=== PATIENT | female | born 1955 | race Caucasian/White ===

== ENCOUNTER 2018-09-22 16:56 | Inpatient (IN) | payer MEDICARE, MEDICAID ==
[~2018-09-22] VITALS: Ht 152.4 cm; Wt 66.3 kg
[~2018-09-22 16:56] MED LIST: AMIT25TA PO; BACL10TA PO; DESV50TA PO; DIAZ5TAB4 PO; GABA300C18 PO; IBUP-1060 PO; LISI-334 PO; OLAN15TA3 PO; VENTOLIN HFA18 GM INH
[2018-09-22] MEDS ORDERED: IV NORMAL SALINE 1000ML BAG 1,000 ML IV ONE ×2 (17:15→17:30)
[2018-09-22] MEDS ORDERED: PANTOPRAZOLE IV PUSH 40 MG VIAL. IVP ONE (17:15)
[2018-09-22 17:22] LABS: CREATININE ISTAT 2.2 mg/dL (0.5-1.4); HEMOGLOBIN ISTAT 7.5 g/dL (12-15); ION CA ISTAT 1.25 mmol/L (1.13-1.32); POTASSIUM ISTAT 5.9 mmol/L (3.5-5.0)
--- NOTE | 2018-09-22 17:23 | PDOC1 ---
History and Physical Date of Admission Date of Admission DATE: 09/22/18 TIME: 17:23 Identification/Chief Complaint Chief Complaint AMS Past Medical History Psych: Anxiety, Bipolar, Depression Family History Family History: Hypertension Social History ALCOHOL: none Drugs: None Current Medications Current Medications Current Medications Sodium Chloride 1,000 ml @ 1,000 mls/hr 1X ONCE IV Last administered on at 17:18; Start 09/22/18 at 17:15; Stop 09/22/18 at 18:14 Pantoprazole Sodium 80 mg/ Sodium Chloride 100 ml @ 10 mls/hr Q10H IV ; Start 09/22/18 at 17:15 Pantoprazole Sodium (PROTONIX VIAL for IV PUSH) 80 mg 1X ONCE IVP ; Start 09/22 at 17:15; Stop 09/22/18 at 17:17; Status DC Ceftriaxone Sodium (Rocephin) 1 gm 1X ONCE IVP ; Start 09/22/18 at 17:30; Stop 09/22/18 at 17:30; Status DC Sodium Chloride 1,000 ml @ 1,000 mls/hr 1X ONCE IV ; Start 09/22/18 at 17:30; Stop 09/22/18 at 18:29 Active Scripts Active Reported Ventolin Hfa Inhaler (Albuterol Sulfate) 18 Gm Hfa.aer.ad 2 Puff INH Q4HRS PRN Pristiq Er (Desvenlafaxine Succinate) 50 Mg Tab.er.24h 1 Tab PO DAILY Zyprexa (Olanzapine) 15 Mg Tablet 1 Tab PO QHS Lisinopril 20 Mg Tablet 1 Tab PO DAILY Amitriptyline Hcl 25 Mg Tablet 1 Tab PO QHS Diazepam 5 Mg Tablet 5 Mg PO TID Gabapentin (Gabapentin) 300 Mg Capsule 300 Mg PO TID Allergies Allergies: Coded Allergies: morphine (Verified Allergy, Severe, swelling, 07/01/18) aspirin (Verified Allergy, Intermediate, 07/05/18) TOLERATES IBUPROFEN oxycodone (Verified Allergy, Intermediate, 07/05/18) Vitals Vitals Vital Signs Date Time Temp Pulse Resp B/P (MAP) Pulse Ox O2 Delivery O2 Flow Rate FiO2 09/22/18 16:57 97.7 92 8 105/64 (78) 100 Room Air 97.7 Labs Labs Laboratory Tests Test 09/22/18 17:17 Bedside Hemoglobin 7.5 g/dL (12-15) Bedside Hematocrit 22 % (36-40) Bedside Sodium 147 mmol/L (135-145) Bedside Potassium 5.9 mmol/L (3.5-5.0) Bedside Chloride 129 mmol/L (98-110) Bedside Total CO2 8 mmol/L (23-32) Anion Gap 16 mmol/L (6-14) Bedside Blood Urea Nitrogen 56 mg/dL (8-26) Bedside Creatinine 2.2 mg/dL (0.5-1.4) Glucose Level 103 mg/dL (70-99) Bedside Ionized Calcium (Yumi) 1.25 mmol/L (1.13-1.32) Laboratory Tests Test 09/22/18 17:17 Bedside Hemoglobin 7.5 g/dL (12-15) Bedside Hematocrit 22 % (36-40) Bedside Sodium 147 mmol/L (135-145) Bedside Potassium 5.9 mmol/L (3.5-5.0) Bedside Chloride 129 mmol/L (98-110) Bedside Total CO2 8 mmol/L (23-32) Anion Gap 16 mmol/L (6-14) Bedside Blood Urea Nitrogen 56 mg/dL (8-26) Bedside Creatinine 2.2 mg/dL (0.5-1.4) Glucose Level 103 mg/dL (70-99) Bedside Ionized Calcium (Yumi) 1.25 mmol/L (1.13-1.32) VTE Prophylaxis Ordered VTE Prophylaxis Devices: Yes VTE Pharmacological Prophylaxi: Yes ALICJA ALLEN MD Sep 22, 2018 17:23
[2018-09-22] MEDS: PANTOPRAZOLE SODIUM IV DRIP 80 MG in IV NORMAL SALINE 100ML 100 ML IV SCH (17:26)
[2018-09-22 17:30] LABS: BASE EXCESS ABG -25 mmol/L (-3-3); HCO3 ABG 4 mmol/L (21-28); PO2 ABG 143 mmHg (65-108); SAT O2 ABG 97 % (92-99)
[2018-09-22] MEDS ORDERED: cefTRIAXone IV Push 1 GM VIAL. IVP ONE (17:30)
[2018-09-22] MEDS ORDERED: PIP/TAZO PER PHARMACY MC PRN (17:30)
[2018-09-22] MEDS ORDERED: VANCOMYCIN 1.75 GM in IV NORMAL SALINE 500ML BAG 500 ML IV ONE (17:30)
[2018-09-22] MEDS ORDERED: PIPERACILLIN/TAZOBACTAM 3.375 GM in IV NORMAL SALINE 50ML 50 ML IV ONE (17:30)
[2018-09-22 17:33] LABS: PCO2 ABG 18 mmHg (35-46)
[2018-09-22 17:34] LABS: FIO2 ABG 21
[2018-09-22 17:45] LABS: BASO % 0 % (0-3); EOS % 1 % (0-3); HEMATOCRIT 25.6 % (36.0-47.0); HEMOGLOBIN 7.8 g/dL (12.0-15.5); LYMPH # 1.3 x10^3/uL (1.0-4.8); LYMPH % 66 % (24-48); MEAN CORPUSCULAR HEMOGLOBIN 29 pg (25-35); MEAN CORPUSCULAR HGB CONC 31 g/dL (31-37); MEAN CORPUSCULAR VOLUME 96 fL (79-100); MONO % 2 % (0-9); NEUT # 0.6 x10^3uL (1.8-7.7); NEUT % 31 % (31-73); PLATELET COUNT 301 x10^3/uL (140-400); RED BLOOD COUNT 2.66 x10^6/uL (3.50-5.40); RED CELL DISTRIBUTION WIDTH 20.7 % (11.5-14.5)
[2018-09-22] MEDS ORDERED: SODIUM BICARB ADULT 8.4% 50 MEQ/50 ML DISP.SYRIN. IV ONE (17:45)
[2018-09-22] MEDS ORDERED: NOREPINEPHRIN 8MG/250ML PREMIX 250 ML IV ONE (17:45)
[2018-09-22 17:49] LABS: WHITE BLOOD COUNT 1.9 x10^3/uL (4.0-11.0)
[2018-09-22 17:51] LABS: FECAL OB PT POSITIVE (NEG)
[2018-09-22 17:52] LABS: PROTHROMBIN TIME PATIENT 18.5 SEC (11.7-14.0)
[2018-09-22 17:54] LABS: ETHANOL < 10 mg/dL (0-10); SALIC 4.7 mg/dL (2.8-20.0)
[2018-09-22 18:00] LABS: ALBUMIN 2.4 g/dL (3.4-5.0); ALBUMIN/GLOBULIN RATIO 0.9 (1.0-1.7); CALCIUM 7.7 mg/dL (8.5-10.1); CREATININE 2.3 mg/dL (0.6-1.0); GFR 21.3; MAGNESIUM 2.1 mg/dL (1.8-2.4); TOTAL BILIRUBIN 0.3 mg/dL (0.2-1.0); TOTAL PROTEIN 5.1 g/dL (6.4-8.2)
[2018-09-22 18:02] LABS: POTASSIUM 6.2 mmol/L (3.5-5.1)
[2018-09-22 18:16] LABS: BILIRUBIN,URINE NEGATIVE (NEG); CLARITY,URINE CLEAR; COLOR,URINE YELLOW; NITRITE,URINE NEGATIVE (NEG); PH,URINE 5.5; PROTEIN,URINE 30 mg/dL (NEG-TRACE)
[2018-09-22 18:24] LABS: BARBITURATES NEG (NEG); BENZODIAZEPINES POS (NEG); CANNABINOIDS NEG (NEG); COCAINE NEG (NEG); METHADONE NEG (NEG); OPIATES NEG (NEG); PHENCYCLIDINE NEG (NEG)
[2018-09-22 18:25] LABS: AMPHETAMINE/METHAMPHETAMINE NEG (NEG)
[2018-09-22] MEDS ORDERED: SODIUM BICARBONATE VIAL 150 MEQ in IV STERILE WATER 1,000 ML IV ONE (18:30)
[2018-09-22 18:33] LABS: BACTERIA,URINE 0 /HPF (0-FEW); RBC,URINE 0 /HPF (0-2); SQUAMOUS EPITHELIAL CELL,UR FEW /LPF; WBC,URINE OCC /HPF (0-4)
--- NOTE | 2018-09-22 18:34 | PHYS DOC ---
Past Medical History Past Medical History: Bipolar, Hypertension Additional Past Medical Histor: BIPOLAR, 09/22 UNKNOWN UNRESPONSIVE Past Surgical History: Cholecystectomy, Other Additional Past Surgical Histo: LEFT SHOULDER Alcohol Use: None Drug Use: None Adult General Chief Complaint Chief Complaint: ALTERED MENTAL STATUS HPI HPI Patient is a 63 year old female presents with chief complaint of altered mental status found down. He was okay this morning went to the bathroom had a dark large black tarry stool and she went unconscious she slumped over son brought her to the bed and called 911. Pressure was not palpable by paramedics GCS was low history is limited by the patient's acuity she has not been sick recently Review of Systems Review of Systems Limited by patient's acuity Current Medications Current Medications Current Medications Medications (Trade) Dose Ordered Sig/Ashli Start Time Stop Time Status Last Admin Dose Admin Ceftriaxone Sodium (Rocephin) 1 gm 1X ONCE 09/22/18 17:30 09/22/18 17:30 DC Norepinephrine Bitartrate 250 ml @ 0 mls/hr 1X ONCE 09/22/18 17:45 09/22/18 17:46 DC 09/22/18 17:51 1.9 MLS/HR Pantoprazole Sodium (PROTONIX VIAL for IV PUSH) 80 mg 1X ONCE 09/22/18 17:15 09/22/18 17:17 DC 09/22/18 17:39 80 MG Pantoprazole Sodium 80 mg/ Sodium Chloride 100 ml @ 10 mls/hr Q10H 09/22/18 17:15 09/22/18 17:26 10 MLS/HR Piperacillin Sod/ Tazobactam Sod (Zosyn Per Pharmacy) 1 each PRN DAILY PRN 09/22/18 17:30 Piperacillin Sod/ Tazobactam Sod 3.375 gm/Sodium Chloride 50 ml @ 100 mls/hr 1X ONCE 09/22/18 17:30 09/22/18 17:59 DC 09/22/18 18:04 100 MLS/HR Sodium Bicarbonate (Sodium Bicarb Adult 8.4% Syr) 50 meq 1X ONCE 09/22/18 17:45 09/22/18 17:46 DC 09/22/18 18:03 50 MEQ Sodium Chloride 1,000 ml @ 1,000 mls/hr 1X ONCE 09/22/18 17:30 09/22/18 18:29 DC 09/22/18 17:27 1,000 MLS/HR Vancomycin HCl (Vanco Per Pharmacy) 1 each PRN DAILY PRN 09/22/18 17:30 Vancomycin HCl 1.75 gm/Sodium Chloride 500 ml @ 250 mls/hr 1X ONCE 09/22/18 17:30 09/22/18 19:29 Allergies Allergies Allergies Coded Allergies Type Severity Reaction Last Updated Verified morphine Allergy Severe swelling 07/01/18 Yes aspirin Allergy Intermediate 07/05/18 Yes oxycodone Allergy Intermediate 07/05/18 Yes Physical Exam Physical Exam Constitutional: Well developed, ill-appearing HENT: Normocephalic, atraumatic, bilateral external ears normal, oropharynx DRY , no oral exudates, nose normal. [] Eyes: PERRLA, EOMI, conjunctiva normal, no discharge. [] Neck: Normal range of motion, no tenderness, supple, no stridor. [] Cardiovascular:Heart rate regular rhythm, no murmur []. Faint pulses noted no radial pulse Lungs & Thorax: Decreased percent bilateral lung bases Abdomen: Bowel sounds normal, soft, likely but difficult exam tenderness, no masses, no pulsatile masses. [] Back: No tenderness, no CVA tenderness. [] Extremities: No tenderness, no cyanosis, no clubbing, ROM intact, 2+ edema noted Neurologic: Eyes open to voice following commands intermittently can say her name slurred speech and altered mental status Current Patient Data Vital Signs Vital Signs Date Time Temp Pulse Resp B/P (MAP) Pulse Ox O2 Delivery O2 Flow Rate FiO2 09/22/18 16:57 97.7 92 8 105/64 (78) 100 Room Air 97.7 Lab Values Laboratory Tests Test 09/22/18 17:10 09/22/18 17:15 09/22/18 17:17 09/22/18 17:20 White Blood Count 1.9 x10^3/uL (4.0-11.0) *L Red Blood Count 2.66 x10^6/uL (3.50-5.40) L Hemoglobin 7.8 g/dL (12.0-15.5) L Hematocrit 25.6 % (36.0-47.0) L Mean Corpuscular Volume 96 fL (79-100) Mean Corpuscular Hemoglobin 29 pg (25-35) Mean Corpuscular Hemoglobin Concent 31 g/dL (31-37) Red Cell Distribution Width 20.7 % (11.5-14.5) H Platelet Count 301 x10^3/uL (140-400) Neutrophils (%) (Auto) 31 % (31-73) Lymphocytes (%) (Auto) 66 % (24-48) H Monocytes (%) (Auto) 2 % (0-9) Eosinophils (%) (Auto) 1 % (0-3) Basophils (%) (Auto) 0 % (0-3) Neutrophils # (Auto) 0.6 x10^3uL (1.8-7.7) L Lymphocytes # (Auto) 1.3 x10^3/uL (1.0-4.8) Monocytes # (Auto) 0.0 x10^3/uL (0.0-1.1) Eosinophils # (Auto) 0.0 x10^3/uL (0.0-0.7) Basophils # (Auto) 0.0 x10^3/uL (0.0-0.2) Platelet Estimate Pending Prothrombin Time 18.5 SEC (11.7-14.0) H Prothrombin Time INR 1.6 (0.8-1.1) H Sodium Level 149 mmol/L (136-145) H Potassium Level 6.2 mmol/L (3.5-5.1) *H Chloride Level 121 mmol/L (98-107) H Carbon Dioxide Level 7 mmol/L (21-32) *L Anion Gap 21 (6-14) H 16 mmol/L (6-14) H Blood Urea Nitrogen 55 mg/dL (7-20) H Creatinine 2.3 mg/dL (0.6-1.0) H Estimated GFR (Cockcroft-Gault) 21.3 BUN/Creatinine Ratio 24 (6-20) H Glucose Level 112 mg/dL (70-99) H 103 mg/dL (70-99) H Lactic Acid Level 4.1 mmol/L (0.4-2.0) *H Calcium Level 7.7 mg/dL (8.5-10.1) L Magnesium Level 2.1 mg/dL (1.8-2.4) Total Bilirubin 0.3 mg/dL (0.2-1.0) Aspartate Amino Transferase (AST) 28 U/L (15-37) Alanine Aminotransferase (ALT) 26 U/L (14-59) Alkaline Phosphatase 84 U/L (46-116) Creatine Kinase 150 U/L (26-192) Troponin I Quantitative < 0.017 ng/mL (0.000-0.055) AY-Plz-J-Type Natriuretic Peptide 486 pg/mL (0-124) H Total Protein 5.1 g/dL (6.4-8.2) L Albumin 2.4 g/dL (3.4-5.0) L Albumin/Globulin Ratio 0.9 (1.0-1.7) L Lipase 221 U/L (73-393) Salicylates Level 4.7 mg/dL (2.8-20.0) Salicylate Last Dose Date Unk Salicylate Last Dose Time Unk Ethyl Alcohol Level < 10 mg/dL (0-10) POC Troponin I 0.00 ng/ml (<0.08) POC Hemoglobin 7.5 g/dL (12-15) L POC Hematocrit 22 % (36-40) L POC Sodium 147 mmol/L (135-145) H POC Potassium 5.9 mmol/L (3.5-5.0) H POC Chloride 129 mmol/L (98-110) H POC Total CO2 8 mmol/L (23-32) L POC Blood Urea Nitrogen 56 mg/dL (8-26) H POC Creatinine 2.2 mg/dL (0.5-1.4) H POC Ionized Calcium (Yumi) 1.25 mmol/L (1.13-1.32) O2 Saturation 97 % (92-99) Arterial Blood pH 7.01 (7.35-7.45) *L Arterial Blood pCO2 at Patient Temp 18 mmHg (35-46) *L Arterial Blood pO2 at Patient Temp 143 mmHg (65-108) H Arterial Blood HCO3 4 mmol/L (21-28) L Arterial Blood Base Excess -25 mmol/L (-3-3) L FiO2 21 Test 09/22/18 17:45 09/22/18 17:50 Stool Occult Blood Positive (NEG) Urine Collection Type Unknown Urine Color Yellow Urine Clarity Clear Urine pH 5.5 Urine Specific Dudley 1.010 Urine Protein 30 mg/dL (NEG-TRACE) Urine Glucose (UA) Negative mg/dL (NEG) Urine Ketones (Stick) Trace mg/dL (NEG) Urine Blood Negative (NEG) Urine Nitrite Negative (NEG) Urine Bilirubin Negative (NEG) Urine Urobilinogen Dipstick 1.0 mg/dL (0.2 mg/dL) Urine Leukocyte Esterase Trace (NEG) Urine RBC 0 /HPF (0-2) Urine WBC Occ /HPF (0-4) Urine Squamous Epithelial Cells Few /LPF Urine Bacteria 0 /HPF (0-FEW) Urine Opiates Screen Neg (NEG) Urine Methadone Screen Neg (NEG) Urine Barbiturates Neg (NEG) Urine Phencyclidine Screen Neg (NEG) Urine Amphetamine/Methamphetamine Neg (NEG) Urine Benzodiazepines Screen Pos (NEG) Urine Cocaine Screen Neg (NEG) Urine Cannabinoids Screen Neg (NEG) Urine Ethyl Alcohol Neg (NEG) Laboratory Tests 09/22/18 17:10 Laboratory Tests 09/22/18 17:10 09/22/18 17:17 EKG EKG []EKG shows peak T waves rate of 84 sinus rhythm noted QTC 455 interpreted by me the time of encounter no STEMI. Radiology/Procedures Radiology/Procedures [] Impressions: CXR NO DEFINITE PNA NOTED. Course & Med Decision Making Course & Med Decision Making Pertinent Labs and Imaging studies reviewed. (See chart for details) []63-year-old female presenting with severe critical illness severe metabolic acidosis melena noted hemoglobin low but not critically low patient was a 0.70 could be mostly GI bleed related however mesenteric ischemia is a possibility a spoke with Several consultants I spoke with Dr. Smith who requested intubation, supportive care as we are otherwise doing. I spoke with Dr. Barnett from nephrology he will arrange for CRRT upstairs. He recommended noncontrast CT scan divided for the mesenteric ischemia. I spoke with Dr. Wright from GI who also recommended supportive care and an NG tube when feasible. As well as blood products etc. I spoke with Dr. Seay ADMIT TO ICU, FOR CLOSE STABILIZATION Critical care time was 110 minutes exclusive of procedures.Indication: Vascular access Consent: The patient provided consent for this procedure. Procedure: The patient was positioned appropriately and the skin over the RIGHT FEMORAL was prepped and draped in a sterile fashion. Local anesthesia was used. A large bore needle was used to identify the vein. A guide wire was then inserted into the vein through the needle. A CORDISn catheter was then inserted into the vessel over the guide wire using the Seldinger technique. All ports showed good, free flowing blood return and were flushed with saline solution. The catheter was then securely fastened to the skin with sutures and covered with a sterile dressing. The patient tolerated the procedure well. Complications: none. Immediately placed patient in position for quarters due to severe melena seen on physical examination as well as a nonpalpable blood pressure. I placed a cordis as above we started mass or transfusion protocol we gave 3 L of fluid total here 3 units of blood FFP is being initiated as we speak now at 6:30 PM. We started Protonix drip we gave Levothroid with a bicarbonate I ordered bicarbonate drip the patient's profound acidosis could be related to blood loss that could also be underlying ischemic event going on. I spoke to multiple consultants as noted above. Dr. Smith did request intubation specifically I had some concerns about the hypotension but we DID get her stabilized MUCH POSSIBLE AND SHE FELT IT CRITICAL WHICH I AGREE WITH 640 PM INTUBATION emergent procedure neck for 7.5 tube 22 at the lips grade 1 view medications patient remained stable throughout the gave 10 of etomidate 100 of rocuronium due to the elevated potassium. Post intubation chest x-ray is pending I've asked Dr. Weaver to take a look at this. I did write an order for the ICU nurses to call the admitting team on arrival to review the CT scan results which are currently pending at this time. \ AT THIS TIME DDX STILL INCULDES MESENTERIC ISCHEMIA, GI BLEED, SERUM OSMOLES IS PENDING. CRRT WILL BE DONE ON ARRIVAL TO ICU. Dragon Disclaimer Dragon Disclaimer This electronic medical record was generated, in whole or in part, using a voice recognition dictation system. Departure Departure Impression: Primary Impression: GI bleed Additional Impression: Metabolic acidosis Disposition: ADMITTED INPATIENT Admitting Physician: Nano Seay Condition: CRITICAL Referrals: NANO SEAY MD (PCP) Problem Qualifiers HALLIE ALLISON MD Sep 22, 2018 18:34
[2018-09-22] MEDS ORDERED: fentaNYL PF VIAL 100 MCG/2 ML VIAL IV ONE (19:00)
[2018-09-22] MEDS ORDERED: LIDOCAINE WITH 8.4% SOD BICARB 3 ML DISP.SYRIN. INJ ONE (19:15)
[2018-09-22] MEDS ORDERED: HEPARIN for IV BOLUS 10,000 UNIT/10 ML VIAL. ONE (19:17)
--- NOTE | 2018-09-22 19:47 | RAD ---
Indication:Altered mental status TECHNIQUE:Portable AP chest X-ray COMPARISON:None FINDINGS: Heart is normal in size. Lungs are clear. No pneumothorax or pleural effusion. Visualized bony thorax is within normal limits. IMPRESSION: No acute pulmonary process. Electronically signed by: Chase Naranjo DO (09/22/2018 7:44 PM) [facility]
--- NOTE | 2018-09-22 19:49 | PDOC ---
BRIEF OPERATIVE NOTE Pre-Op Diagnosis ARF Post-Op Diagnosis same Procedure Performed Temp HD catheter placement Surgeon Jairo Anesthesia Type: Local Findings R IJ temp HD with excellent manual flow rates Complications No immediate NATALIE JUAN MD Sep 22, 2018 19:49
--- NOTE | 2018-09-22 20:08 | RAD ---
Indication:s/p HD catheter placement TECHNIQUE:Portable AP chest X-ray COMPARISON:Study from the same day earlier FINDINGS: ET tube is seen 1.4 cm above the level of jarrod. Interval placement of modalities catheter with its tip at the cavoatrial junction. Heart is normal in size. Calcified left paratracheal and hilar lymph nodes are seen. Mild prominence of bilateral interstitium. No pneumothorax or pleural effusion. Visualized bony thorax within normal limits. IMPRESSION: 1. Tip of the dialysis catheter is at the cavoatrial junction. 2. Stable mild prominence of interstitium may be secondary to interstitial pulmonary edema. Electronically signed by: Chase Naranjo DO (09/22/2018 8:05 PM) [facility]
[2018-09-22 20:15] LABS: % BANDS 1 % (0-9); % EOS 1 % (0-5); % LYMPHS 72 % (24-48); % SEGS 26 % (35-66); PLT ESTIMATE ADEQUATE (ADEQUATE)
[2018-09-22 20:20] LABS: ANISOCYTOSIS MOD
--- NOTE | 2018-09-22 20:33 | RAD ---
PQRS Compliance statement: One or more of the following individualized dose reduction techniques were utilized for this examination: 1. Automated exposure control. 2. Adjustment of the mA and/or kV according to patient size. 3. Use of iterative reconstruction technique. Indication:AMS TECHNIQUE: CT head without IV contrast COMPARISON:07/02/2018 FINDINGS: No pathologic extra-axial or intra-axial fluid collection. The ventricles and basal cisterns are within normal limits. No acute intracranial bleed. No focal loss of mazariegos-white differentiation. Orbits within normal limits. No suspicious calvarial lesion. Opacification of the nasopharynx likely secondary to mucous. The paranasal sinuses and mastoid air cells are clear. IMPRESSION: No acute intracranial process. If concern for acute ischemic stroke is high, please consider MRI brain. Electronically signed by: Chase Naranjo DO (09/22/2018 8:30 PM) [facility]
[2018-09-22] MEDS ORDERED: ETOMIDATE 20 MG/10 ML VIAL. IV ONE (20:36)
[2018-09-22] MEDS ORDERED: ROCURONIUM 50 MG/5 ML VIAL. ONE (20:36)
--- NOTE | 2018-09-22 20:43 | RAD ---
PQRS Compliance statement: One or more of the following individualized dose reduction techniques were utilized for this examination: 1. Automated exposure control. 2. Adjustment of the mA and/or kV according to patient size. 3. Use of iterative reconstruction technique. Indication:EVAL FOR SOURCE OF SHOCK. TECHNIQUE: CT chest, abdomen and pelviswithout IV contrast with multiplanar reformats. COMPARISON: None FINDINGS: Limited exam due to lack of IV contrast. ET tube is seen with its tip at the level of T4 vertebral body. Central venous catheter is seen with its tip in the right atrium. Heart is normal in size. No pericardial effusion. Consolidation is seen in the left lower lobe with air bronchograms. No enlarged mediastinal adenopathy. Evaluation of hilar lymphadenopathy is limited due to lack of IV contrast. Wedge-shaped consolidation is seen along the superior aspect of the right major fissure. Tip of the ET tube is in the right mainstem bronchus and should be pulled back by approximately 3 cm. Very mild loss of T5 and T8 vertebral body height noted. Noncontrast appearance of the liver, spleen, pancreas, adrenals and kidneys within normal limits. No free pelvic fluid or ascites. Large amount of colonic stool burden. No bowel obstruction. Status post hysterectomy. Urinary bladder is decompressed with Mckinney catheter. No pneumoperitoneum. Mild loss of T12 and anterior L2 vertebral body heights. No suspicious bony lesion. IMPRESSION: Limited exam due to lack of IV contrast. 1. Tip of the ET tube is in the proximal right mainstem bronchus and should be withdrawn by approximately 3 cm. 2. Partial consolidation in the left lower lobe and along the superior aspect of the right major fissure may be secondary to atelectasis or pneumonia. 3. Mild loss of thoracic and lumbar vertebral bodies most likely mild compression deformities, age indeterminate but likely chronic. 4. Large amount of colonic stool burden, patient may be constipated. Findings discussed with Dr. Cardona on 09/22/2018 at 8:40 PM. Electronically signed by: Chase Naranjo DO (09/22/2018 8:40 PM) [facility]
[2018-09-22] MEDS: VANCOMYCIN PER PHARMACY MC PRN (21:08)
--- NOTE | 2018-09-22 21:09 | NUR ---
Pharmacy Vancomycin Dosing Note S:Consulted to monitor and dose vancomycin started 09/22/18. O:ISABELL BUCIO is a 63 year old F started empirically on vancomycin Height: 5 feet, 0 inches Weight: 69.4 kg [place] Body Weight: 45.50 Adjusted Body Weight: 55.06 Dosing Weight: Actual Other Antibiotics: zosyn LABS: Last BUN: 55 Last Creatinine: 2.3 Creatinine Clearance: starting CRRT 09/22 Last WBC: 1.9 Last Procalcitonin: Tmax (past 24 hours): 97.7 Microbiology: - I/O: - Drug Levels: Last level: on at Last dose given at Vancomycin Dosing: Loading Dose: 1750 mg x1 Dosing Weight: Actual Target Trough: 15-20 A: Based on: WEIGHT AND RENAL FUNCTION P: 1. DOSE Vancomycin 1750 mg IV One Time 2. Follow up labs/levels to be ordered by pharmacy pending changes in patient condition/renal funciton 3. Pharmacy will continue to monitor, follow and adjust therapy as needed. Alysia Flowers RPH, 09/22/18 [id number]
[2018-09-22 21:30] VITALS: BP 96/52
[2018-09-22 21:34] LABS: BASE EXCESS ABG -22 mmol/L (-3-3); CORRECTED PCO2 ABG 23 mmHg; CORRECTED PH ABG 7.07; CORRECTED PO2 ABG 402 mmHg; HCO3 ABG 7 mmol/L (21-28); SAT O2 ABG 100 % (92-99)
[2018-09-22 21:35] LABS: FIO2 ABG 100; PCO2 ABG 25 mmHg (35-46); PO2 ABG 411 mmHg (65-108)
--- NOTE | 2018-09-22 21:39 | RAD ---
Indication:ETT, OGT placement TECHNIQUE:Portable AP chest X-ray COMPARISON:CT from the same day earlier FINDINGS: ET tube is seen with its tip at the level of jarrod and should be withdrawn by approximately 2 cm. NG tube is seen with its tip in the body of the stomach. Right central venous catheter with its tip in the SVC. Heart is normal in size. Lungs are clear. No pneumothorax or pleural effusion. Visualized bony thorax within normal limits. IMPRESSION: 1. Low-lying ET tube. Please withdraw by 2 cm. Findings discussed with Rudy in ICU at 09/22/2018 at 9:37 PM. Electronically signed by: Chase Naranjo DO (09/22/2018 9:36 PM) [facility]
[2018-09-22 22:00] VITALS: BP 75/48
[2018-09-22] MEDS: SODIUM BICARBONATE VIAL 150 MEQ in IV STERILE WATER 1,000 ML IV SCH (22:03)
[2018-09-22] MEDS: POTASSIUM CHLORIDE IV SCH ×10 (22:04)
[2018-09-22] MEDS: [UNRECOGNIZED DRUG - OTHER] IV SCH ×10 (22:04)
[2018-09-22] MEDS: SODIUM BICARBONATE IV SCH ×10 (22:04)
[2018-09-22] MEDS: MAGNESIUM SULFATE IV SCH ×10 (22:04)
[2018-09-22 22:42] LABS: HEMATOCRIT 44.1 % (36.0-47.0); HEMOGLOBIN 14.5 g/dL (12.0-15.5); RED BLOOD COUNT 4.83 x10^6/uL (3.50-5.40); RED CELL DISTRIBUTION WIDTH 16.8 % (11.5-14.5)
[2018-09-22 23:00] VITALS: BP_SYST 95; BP_DIAS 46; BP_DIAS 75
[2018-09-23] VITALS (25 sets, daily range): BP systolic 100–166; BP diastolic 59–101
[2018-09-23] MEDS: PIPERACILLIN/TAZOBACTAM 3.375 GM in IV NORMAL SALINE 50ML 50 ML IV SCH ×4 (00:50→18:26)
[2018-09-23] MEDS: NOREPINEPHRIN 8MG/250ML PREMIX 250 ML IV PRN ×3 (00:53→19:53)
[2018-09-23] MEDS: PANTOPRAZOLE SODIUM IV DRIP 80 MG in IV NORMAL SALINE 100ML 100 ML IV SCH ×2 (00:54→13:19)
[2018-09-23] MEDS: fentaNYL PF VIAL 100 MCG/2 ML VIAL IV PRN ×4 (03:28→23:48)
[2018-09-23] MEDS: MAGNESIUM SULFATE IV SCH ×34 (05:02→23:50)
[2018-09-23] MEDS: SODIUM BICARBONATE IV SCH ×30 (05:02→15:40)
[2018-09-23] MEDS: [UNRECOGNIZED DRUG - OTHER] IV SCH ×30 (05:02→15:40)
[2018-09-23] MEDS: POTASSIUM CHLORIDE IV SCH ×34 (05:02→23:50)
[2018-09-23] MEDS: SODIUM BICARBONATE VIAL 150 MEQ in IV STERILE WATER 1,000 ML IV SCH ×6 (05:03→20:08)
--- NOTE | 2018-09-23 05:43 | NUR ---
Pt managed at start of shift in ER. IR placing Temp dialysis cath and process improvement analyst placing L upper arm art line. Pt on levo gtt and 2nd amp bicarb given. Pt unresponsive on no sedation upon arrival. Pt intubated and on vent per pulmonology instruction. Pt to CT en route to ICU. CRRT started on pt at 2145. CRRT stopped around 2330 due to machine problems. Dialysis nurse restringing and CRRT resumed at 0140. Art line in R. arm very positional and hematoma forming. Art line removed and pressure applied. CHIPPING MACHINE OPERATOR with new A line to R. arm and good waveform but still very positional. B/P cuff to Left leg and matching well with art line. bmp, mag, and phos q6hr with crrt. Francisca hugger in place after arrival from ER due to low temps as charted. Pt started on sedation around 2300 due to increasing activity. Pt not nodding/shaking head to questions still but tracking with eyes when sedation down. Update given to family (son who pt lives with - Dirk Tim"). Pt with diarrhea BM at 0500. stool dark brown but with no overt bleeding. OG output green and with trace of blood. Hgb on redraw tonight stable after 3uPRBC and 1uFFP. Will recheck labs this AM and continue to closely observe pt on 1:1 acuity. Addendum: 09/23/18 at 0645 by EMILIANO BOONE RN Spoke with Dr. Gramajo regarding pt status and CT results. AC from to . No new orders at this time.
[2018-09-23 06:35] LABS: HEMATOCRIT 40.9 % (36.0-47.0); HEMOGLOBIN 13.7 g/dL (12.0-15.5); RED BLOOD COUNT 4.62 x10^6/uL (3.50-5.40); RED CELL DISTRIBUTION WIDTH 16.6 % (11.5-14.5); WHITE BLOOD COUNT 15.8 x10^3/uL (4.0-11.0)
[2018-09-23 06:43] LABS: MAGNESIUM 2.2 mg/dL (1.8-2.4); PHOSPHORUS 3.7 mg/dL (2.6-4.7)
--- NOTE | 2018-09-23 06:49 | PDOC ---
Provider Note Provider Note [id number] acute resp fial shock gib elizabet ?pneumonia see orders. ELIANE CANADA MD Sep 23, 2018 06:49
[2018-09-23 06:53] LABS: PROTHROMBIN TIME PATIENT 19.4 SEC (11.7-14.0)
[2018-09-23 07:09] LABS: ALBUMIN 2.6 g/dL (3.4-5.0); CALCIUM 6.8 mg/dL (8.5-10.1); CREATININE 1.4 mg/dL (0.6-1.0); GFR 37.9; POTASSIUM 3.7 mmol/L (3.5-5.1); TOTAL BILIRUBIN 1.7 mg/dL (0.2-1.0); TOTAL PROTEIN 5.2 g/dL (6.4-8.2)
--- NOTE | 2018-09-23 07:21 | CONS ---
DATE OF CONSULTATION: 09/23/2018 I was asked to see this 63-year-old lady for acute respiratory failure, shock. HISTORY OF PRESENT ILLNESS: The patient is currently on the ventilator and is on Versed drip, Levophed and vasopressin. The patient is not able to give me any information. All of the information was obtained from chart, nursing staff and ER physician. She was brought to the Emergency Room for altered mental status and melena via MAST. At the time of arrival, her pulse was not palpable. Femoral line was placed. She was given IV bolus and 3 units of blood and FFP. The patient was severely acidotic and tachypneic. I did talk to the ER physician and recommended intubation. The patient was intubated in the Emergency Room and was sent to ICU. She was found to be in kidney failure. She was started on CRRT last night. She is currently on CRRT. She is on the ventilator. She is sedated. She has some endotracheal tube secretion. PAST MEDICAL HISTORY: Bipolar disorder, hypertension, and cholecystectomy. ALLERGIES: ASPIRIN, MORPHINE, OXYCODONE. MEDICATIONS: She is on Zosyn, Protonix drip, Levophed, vasopressin and one dose of vancomycin was given. SOCIAL HISTORY: Remote history of smoking per chart. FAMILY HISTORY: Hypertension per chart. REVIEW OF SYSTEMS: As mentioned as above. I have discussed the patient with RN, other systems otherwise negative. PHYSICAL EXAMINATION: GENERAL: This is an obese lady. VITAL SIGNS: Her O2 saturation on 60% FiO2 is 100%, respiratory rate 24, heart rate 94, blood pressure 100/59, temperature 97.7. HEENT: Normocephalic, atraumatic. Pupils equal, round, reactive to light. She is orally intubated. Nose is clear. NECK: Short and thick. There is no lymphadenopathy or thyromegaly. CARDIOVASCULAR: Regular rate and rhythm. PMI is not displaced. CHEST: Inspection is normal. LUNGS: There are bibasilar crackles, dullness at the bases. ABDOMEN: Soft and obese. Diminished bowel sounds. There is no mass. EXTREMITIES: There is edema. LYMPHATICS: There is no lymphadenopathy. NEUROLOGIC: She is set on the ventilator, sedated. SKIN: Chronic changes. LABORATORY DATA: I reviewed the following lab data: Last chest x-ray was done last night, which does show ET tube to far end, which has pulled out. It appears that dialysis catheter might be near heart. On admission, WBC 1.9, today is 13, hemoglobin 7.8, today is 14.5, platelets 301, today is 141. At 1700, sodium 147, potassium 5.9, chloride 129, BUN 56, creatinine 2.2. Lactic acid on admission was 4.1, repeat is 1.8. Troponin is 0, BNP is 486. Magnesium 2.1. On admission, her potassium was 6.2. Sodium was 149, bicarbonate was 7. Total protein 5.1, albumin 2.4. Her urine drug screen was positive for benzodiazepine. Alcohol level less than 10. ABG: pH 7.05, pCO2 of 25, pO2 of 411 on assist control rate of 20, FiO2 of 100%, PEEP of 5, tidal volume 450. CT of the chest did show left lower lobe infiltrate, large amount of colonic stool. IMPRESSION: 1. Acute respiratory failure, multifactorial in etiology including shock, acute kidney injury versus others. 2. Shock, probably hypovolemic, cannot rule out septic versus others. 3. Abnormal CT of the chest with left lower lobe infiltrate, ?pneumonia. 4. Acute kidney injury. 5. Electrolyte abnormality. 6. Gastrointestinal bleeding. 7. Hypotension. 8. Severe metabolic acidosis secondary to shock and acute kidney injury versus others. PLAN AND RECOMMENDATION: 1. Titrate FiO2 to keep O2 saturation 94%. 2. Continue ventilator support until the patient is more stable. I did increase her rate to 24 last night. I will check ABG and adjust vent setting per ABG. 3. Nephrology is consulted. Continue CRRT per Nephrology. 4. Continue antibiotic. 5. check sputum for culture. 6. I will check a chest x-ray to confirm good position of Vas-Cath and ET tube. 7. Start bronchodilator. 8. Protonix drip. 9. GI is consulted. 10. echeck procalcitonin. 11. SCDs for DVT prophylaxis. 12. Continue pressors to keep mean arterial pressure more than 65. 13. The findings and recommendations were discussed with RN. Thank you very much for allowing me to participate in care of this very nice lady. This is critical care time 35 minutes without overlap. The patient is critically ill. ELIANE CANADA M.D. DR: Tiffanie JOB#: [id number] / [id number] JOSE RAUL
--- NOTE | 2018-09-23 08:08 | RAD ---
CHEST AP ONLY History: Placement of both ETT and R. subclavian dialysis cath Comparison: September 22, 2018 Right IJ line stable in position. Endotracheal tube tip has been withdrawn, now located 3.5 cm above jarrod. Endogastric tube identified extending into the left upper quadrant. Mild linear markings left lung, compatible with mild atelectasis or scarring. No consolidating infiltrate. No pneumothorax or pleural effusion. Heart size stable and not enlarged. IMPRESSION: Mild left lung atelectasis or scarring. No consolidating infiltrate. Electronically signed by: Corwin Hernandez MD (09/23/2018 8:05 AM) [facility]
--- NOTE | 2018-09-23 08:19 | RAD ---
PORTABLE CHEST 1V 6:56 PM September 22, 2018 History: Intubation Comparison: 07/01/2018 Findings: Note this exam was performed at 6:56 PM on 09/22/2018, but not available for interpretation until the time of this report on 09/23/2018. Endotracheal tube has its tip at the jarrod, a finding which was noted on a subsequent chest x-ray, and the most recent exam demonstrates that it has been withdrawn to appropriate position. Mild congestive changes of central pulmonary vasculature. Mild interstitial prominence, may be accentuated by low lung volumes. No dense lobar consolidation. No evidence of pneumothorax. No pleural effusion. IMPRESSION: 1. Endotracheal tube tip at the jarrod, subsequent chest radiographs demonstrate that it has been partially retracted to appropriate position. 2. Mild congestive changes with interstitial prominence, raising the question of mild congestive failure, although low lung volumes could contribute to the appearance on this exam. Electronically signed by: Corwin Hernandez MD (09/23/2018 8:16 AM) [facility]
--- NOTE | 2018-09-23 08:37 | PDOC2 ---
CONSULT Date of Consult Date of Consult DATE: 09/23/18 TIME: 08:15 Reason for Consult Reason for Consult: Severe metabolic acidosis, renal failure in a critically ill patient Referring Physician Referring Physician: ER physician Dr. Shahriar Bueno Identification/Chief Complaint Chief Complaint Altered mental status found Source Source: Chart review History of Present Illness Reason for Visit: Patient is a 63-year-old female with history of bipolar disorder. She was brought by EMS after her son called them due to decreased level of responsiveness possible confusion and reportedly found down. It is noted that patient had a dark bowel movement prior to that episode. On presentation to the ER she was noted to have a barely palpable pulse and nondetectable blood pressure. She was found to be in severe metabolic acidosis with an ABG of 7.01, PCO2 of 18, PO2 of 143, bicarbonate of 4. I was called by Dr. Mcleod regarding her renal failure and assistance with management of her metabolic acidosis. She was also noted to have significant hyperkalemia also. IV fluids were started. It was felt that she might have an intra-abdominal pathology and required an emergent CT scan preferably with IV contrast to rule out ischemic gut. However, given her elevated creatinine it was felt that that would not be appropriate. Initially a Mckinney catheter was placed and she meds about a liter of urine however this has tapered off. She was placed on pressors, sedated intubated and transferred to the ICU where CRRT was emergently initiated. She appears to have tolerated CRRT well. Hyperkalemia has resolved this morning. Metabolic acidosis is improving, lactic acid is normalized. CPK was normal at presentation. She remains sedated intubated and I'm unable to glean much in terms of history from the patient other than as documented in her chart. She did have a recent echocardiogram in June 2018 and that appears to be relatively normal. Her abdominal CT was nonrevealing other than significant amount of stool. There is some question about possible focal pneumonia on CT of her chest. No obstructive renal pathology was identified on noncontrast CT. It appears at her baseline creatinine as of June 2018 runs about 0.9 Past Medical History Cardiovascular: HTN Psych: Anxiety, Bipolar, Depression Past Surgical History Past Surgical History Unable to be obtained Or verify with the patient other than as documented in previous records due to her current sedated and intubated state Family History Family History Unable to be obtained Or verify with the patient other than as documented in previous records due to her current sedated and intubated state Family History: Hypertension Social History Social History Unable to be obtained Or verify with the patient other than as documented in previous records due to her current sedated and intubated state ALCOHOL: none Drugs: None Lives: with Family Current Medications Current Medications Current Medications Sodium Chloride 1,000 ml @ 1,000 mls/hr 1X ONCE IV Last administered on at 17:18; Start 09/22/18 at 17:15; Stop 09/22/18 at 18:14; Status DC Pantoprazole Sodium 80 mg/ Sodium Chloride 100 ml @ 10 mls/hr Q10H IV Last administered on 09/23/18at 00:54; Start 09/22/18 at 17:15 Pantoprazole Sodium (PROTONIX VIAL for IV PUSH) 80 mg 1X ONCE IVP Last administered on 09/22/18at 17:39; Start 09/22/18 at 17:15; Stop 09/22/18 at 17:17 ; Status DC Ceftriaxone Sodium (Rocephin) 1 gm 1X ONCE IVP ; Start 09/22/18 at 17:30; Stop 09/22/18 at 17:30; Status DC Sodium Chloride 1,000 ml @ 1,000 mls/hr 1X ONCE IV Last administered on at 17:27; Start 09/22/18 at 17:30; Stop 09/22/18 at 18:29; Status DC Vancomycin HCl (Vanco Per Pharmacy) 1 each PRN DAILY PRN MC SEE COMMENTS Last administered on 09/22/18at 21:08; Start 09/22/18 at 17:30 Piperacillin Sod/ Tazobactam Sod (Zosyn Per Pharmacy) 1 each PRN DAILY PRN MC SEE COMMENTS; Start 09/22/18 at 17:30 Piperacillin Sod/ Tazobactam Sod 3.375 gm/Sodium Chloride 50 ml @ 100 mls/hr 1X ONCE IV Last administered on 09/22/18at 18:04; Start 09/22/18 at 17:30; Stop 09/22/18 at 17:59; Status DC Vancomycin HCl 1.75 gm/Sodium Chloride 500 ml @ 250 mls/hr 1X ONCE IV Last administered on 09/22/18at 23:28; Start 09/22/18 at 17:30; Stop 09/22/18 at 19:29 ; Status DC Sodium Bicarbonate (Sodium Bicarb Adult 8.4% Syr) 50 meq 1X ONCE IV Last administered on 09/22/18at 18:03; Start 09/22/18 at 17:45; Stop 09/22/18 at 17:46 ; Status DC Norepinephrine Bitartrate 250 ml @ 0 mls/hr 1X ONCE IV Last administered on at 17:51; Start 09/22/18 at 17:45; Stop 09/22/18 at 17:46; Status DC Sodium Bicarbonate 150 meq/Sterile Water 1,150 ml @ 125 mls/hr 1X ONCE IV Last administered on 09/22/18at 18:30; Start 09/22/18 at 18:30; Stop 09/23/18 at 03:41; Status DC Piperacillin Sod/ Tazobactam Sod 3.375 gm/Sodium Chloride 50 ml @ 100 mls/hr Q6HRS IV Last administered on 09/23/18at 05:01; Start 09/23/18 at 00:00 Vasopressin 40 unit/Dextrose 102 ml @ 6 mls/hr CONT PRN IV SEE I/O RECORD; Start 09/22/18 at 18:45 Fentanyl Citrate (Fentanyl 2ml Vial) 50 mcg 1X ONCE IV ; Start 09/22/18 at 19: 00; Stop 09/22/18 at 19:01; Status DC Midazolam HCl 100 ml @ 5 mls/hr CONT PRN IV SEE I/O RECORD; Start 09/22/18 at 19:00 Lidocaine/Sodium Bicarbonate (Buffered Lidocaine 1%) 4 ml 1X ONCE INJ Last administered on 09/22/18at 19:15; Start 09/22/18 at 19:15; Stop 09/22/18 at 19:18 ; Status DC Heparin Sodium (Porcine) (Heparin Sodium) 2,500 unit 1X ONCE INT CAT Last administered on 09/22/18at 19:15; Start 09/22/18 at 19:15; Stop 09/22/18 at 19:18 ; Status DC Heparin Sodium (Porcine) (Heparin Sodium) 10,000 unit STK-MED ONCE .ROUTE ; Start 09/22/18 at 19:17; Stop 09/22/18 at 19:18; Status DC Sodium Bicarbonate 40 meq/Potassium Chloride 15 meq/ Magnesium Sulfate 5 meq/ Calcium Chloride 2.5 meq/ Bicarbonate Dialysis Soln w/ out KCl 5,050.5172 ml @ 1 ,000 mls/hr Q5H4M IV Last administered on 09/23/18at 05:02; Start 09/22/18 at 22 :00 Sodium Bicarbonate 40 meq/Potassium Chloride 15 meq/ Magnesium Sulfate 5 meq/ Calcium Chloride 2.5 meq/ Bicarbonate Dialysis Soln w/ out KCl 5,050.5172 ml @ 1 ,000 mls/hr Q5H4M IV Last administered on 09/23/18at 05:02; Start 09/22/18 at 22 :00 Sodium Bicarbonate 150 meq/Sterile Water 1,150 ml @ 300 mls/hr Q3H50M IV Last administered on 09/23/18at 06:08; Start 09/22/18 at 22:00 Etomidate (Amidate) 20 mg STK-MED ONCE IV ; Start 09/22/18 at 20:36; Stop at 20:37; Status DC Rocuronium Crook (Zemuron) 50 mg STK-MED ONCE .ROUTE ; Start 09/22/18 at 20:36 ; Stop 09/22/18 at 20:37; Status DC Norepinephrine Bitartrate 250 ml @ 1.875 mls/ hr CONT PRN IV SEE I/O RECORD Last administered on 09/23/18at 05:38; Start 09/22/18 at 23:30 Fentanyl Citrate (Fentanyl 2ml Vial) 50 mcg PRN Q1HR PRN IV PAIN Last administered on 09/23/18at 03:28; Start 09/22/18 at 23:30 Epinephrine HCl 4 mg/Sodium Chloride 254 ml @ 26.44 mls/ hr CONT PRN IV SEE I/ O RECORD; Start 09/23/18 at 02:15 Albuterol/ Ipratropium (Duoneb) 3 ml RTQID NEB ; Start 09/23/18 at 08:00 Active Scripts Active Reported Ventolin Hfa Inhaler (Albuterol Sulfate) 18 Gm Hfa.aer.ad 2 Puff INH Q4HRS PRN Pristiq Er (Desvenlafaxine Succinate) 50 Mg Tab.er.24h 1 Tab PO DAILY Zyprexa (Olanzapine) 15 Mg Tablet 1 Tab PO QHS Lisinopril 20 Mg Tablet 1 Tab PO DAILY Amitriptyline Hcl 25 Mg Tablet 1 Tab PO QHS Diazepam 5 Mg Tablet 5 Mg PO TID Gabapentin (Gabapentin) 300 Mg Capsule 300 Mg PO TID Allergies Allergies: Coded Allergies: morphine (Verified Allergy, Severe, swelling, 07/01/18) aspirin (Verified Allergy, Intermediate, 07/05/18) TOLERATES IBUPROFEN oxycodone (Verified Allergy, Intermediate, 07/05/18) ROS Review of System Unable to be obtained Or verify with the patient other than as documented in previous records due to her current sedated and intubated state. Rest of details per history of present illness Physical Exam Physical Exam General Appearance: Sedated intubated on the ventilator In no visible Distress Eyes: Sclera is anicteric Conjunctiva Normal EN: No EN Drainage Mucous Memb. Moist, orally intubated Neck: no JVD no JVP Supple no Thyromegaly, short thick neck CVS: S1 S2 no audible Murmur No Gallop No Rub no Edema, distal heart sounds Resp: no Rales no Rhonchi no Acc. Muscle use, distal breath sounds GI: BS rare if any NO Bruit Non Tender Non Distended, obese abdomen unable to palpate organomegaly : no CVA tenderness; no Suprapubic Tenderness SKIN: No visible Rashes Breast Exam deferred Mu.Sk: Adequate passive ROM no Muscle Atrophy Heme: Unable to palpate Obvious LAD no Splenomegaly NEURO: Unable to accurately assess due to sedated intubated state Psych: Unable to currently assess due to sedated intubated state Vital Signs Vital Signs Date Time Temp Pulse Resp B/P (MAP) Pulse Ox O2 Delivery O2 Flow Rate FiO2 09/23/18 06:36 97.2 97.2 09/23/18 06:00 82 24 137/78 (97) 100 Ventilator 147/66 (93) Assessment & Plan Acute kidney injury: Presumed ATN due to hypotension. Continue CRRT for now Metabolic acidosis: This is a etiology unclear at this time. Anion gap appeared To be pretty wide at presentation however lactic acid was not impressively elevated. Other etiologies of acidosis may need to be entertained. Serum ketones , BHBA are not available at this hospital to measure. Volatile ingestion appears to be less likely Severe hypotension: Hemodynamics appeared to be improving with some amount of volume resuscitation as well correction of acidosis. Continue pressors for now Hyper natremia: We'll watch trend and alter CRRT fluids based on same Septic shock: Unclear etiology defer antibiotics to primary team, critical care team Hyperkalemia present on admission presumably associated with metabolic acidosis : Now resolved on CRRT Hypocalcemia: Unclear etiology: Recheck CPK. Mag and possibly to be adequate. Will correct with CRRT Discussed Plan of Care with nurse Labs Labs Laboratory Tests Test 09/22/18 17:10 09/22/18 17:15 09/22/18 17:17 09/22/18 17:20 White Blood Count 1.9 x10^3/uL (4.0-11.0) Red Blood Count 2.66 x10^6/uL (3.50-5.40) Hemoglobin 7.8 g/dL (12.0-15.5) Hematocrit 25.6 % (36.0-47.0) Mean Corpuscular Volume 96 fL (79-100) Mean Corpuscular Hemoglobin 29 pg (25-35) Mean Corpuscular Hemoglobin Concent 31 g/dL (31-37) Red Cell Distribution Width 20.7 % (11.5-14.5) Platelet Count 301 x10^3/uL (140-400) Neutrophils (%) (Auto) 31 % (31-73) Lymphocytes (%) (Auto) 66 % (24-48) Monocytes (%) (Auto) 2 % (0-9) Eosinophils (%) (Auto) 1 % (0-3) Basophils (%) (Auto) 0 % (0-3) Neutrophils # (Auto) 0.6 x10^3uL (1.8-7.7) Lymphocytes # (Auto) 1.3 x10^3/uL (1.0-4.8) Monocytes # (Auto) 0.0 x10^3/uL (0.0-1.1) Eosinophils # (Auto) 0.0 x10^3/uL (0.0-0.7) Basophils # (Auto) 0.0 x10^3/uL (0.0-0.2) Segmented Neutrophils % 26 % (35-66) Band Neutrophils % 1 % (0-9) Lymphocytes % 72 % (24-48) Eosinophils % 1 % (0-5) Platelet Estimate Adequate (ADEQUATE) Anisocytosis Mod Prothrombin Time 18.5 SEC (11.7-14.0) Prothromb Time International Ratio 1.6 (0.8-1.1) Activated Partial Thromboplast Time 31 SEC (24-38) Sodium Level 149 mmol/L (136-145) Potassium Level 6.2 mmol/L (3.5-5.1) Chloride Level 121 mmol/L (98-107) Carbon Dioxide Level 7 mmol/L (21-32) Anion Gap 21 (6-14) 16 mmol/L (6-14) Blood Urea Nitrogen 55 mg/dL (7-20) Creatinine 2.3 mg/dL (0.6-1.0) Estimated GFR (Cockcroft-Gault) 21.3 BUN/Creatinine Ratio 24 (6-20) Glucose Level 112 mg/dL (70-99) 103 mg/dL (70-99) Lactic Acid Level 4.1 mmol/L (0.4-2.0) Calcium Level 7.7 mg/dL (8.5-10.1) Phosphorus Level 7.5 mg/dL (2.6-4.7) Magnesium Level 2.1 mg/dL (1.8-2.4) Total Bilirubin 0.3 mg/dL (0.2-1.0) Aspartate Amino Transf (AST/SGOT) 28 U/L (15-37) Alanine Aminotransferase (ALT/SGPT) 26 U/L (14-59) Alkaline Phosphatase 84 U/L (46-116) Creatine Kinase 150 U/L (26-192) Troponin I Quantitative < 0.017 ng/mL (0.000-0.055) YC-Qzx-A-Type Natriuretic Peptide 486 pg/mL (0-124) Total Protein 5.1 g/dL (6.4-8.2) Albumin 2.4 g/dL (3.4-5.0) Albumin/Globulin Ratio 0.9 (1.0-1.7) Lipase 221 U/L (73-393) Salicylates Level 4.7 mg/dL (2.8-20.0) Salicylate Last Dose Date Unk Salicylate Last Dose Time Unk Ethyl Alcohol Level < 10 mg/dL (0-10) Hepatitis B Surface Antigen Nonreactive (Nonreactive) Bedside Troponin I 0.00 ng/ml (<0.08) Bedside Hemoglobin 7.5 g/dL (12-15) Bedside Hematocrit 22 % (36-40) Bedside Sodium 147 mmol/L (135-145) Bedside Potassium 5.9 mmol/L (3.5-5.0) Bedside Chloride 129 mmol/L (98-110) Bedside Total CO2 8 mmol/L (23-32) Bedside Blood Urea Nitrogen 56 mg/dL (8-26) Bedside Creatinine 2.2 mg/dL (0.5-1.4) Bedside Ionized Calcium (Yumi) 1.25 mmol/L (1.13-1.32) O2 Saturation 97 % (92-99) Arterial Blood pH 7.01 (7.35-7.45) Arterial Blood pCO2 at Patient Temp 18 mmHg (35-46) Arterial Blood pO2 at Patient Temp 143 mmHg (65-108) Arterial Blood HCO3 4 mmol/L (21-28) Arterial Blood Base Excess -25 mmol/L (-3-3) FiO2 21 Test 09/22/18 17:45 09/22/18 17:50 09/22/18 21:23 09/22/18 22:30 Stool Occult Blood Positive (NEG) Urine Collection Type Unknown Urine Color Yellow Urine Clarity Clear Urine pH 5.5 Urine Specific Arion 1.010 Urine Protein 30 mg/dL (NEG-TRACE) Urine Glucose (UA) Negative mg/dL (NEG) Urine Ketones (Stick) Trace mg/dL (NEG) Urine Blood Negative (NEG) Urine Nitrite Negative (NEG) Urine Bilirubin Negative (NEG) Urine Urobilinogen Dipstick 1.0 mg/dL (0.2 mg/dL) Urine Leukocyte Esterase Trace (NEG) Urine RBC 0 /HPF (0-2) Urine WBC Occ /HPF (0-4) Urine Squamous Epithelial Cells Few /LPF Urine Bacteria 0 /HPF (0-FEW) Urine Opiates Screen Neg (NEG) Urine Methadone Screen Neg (NEG) Urine Barbiturates Neg (NEG) Urine Phencyclidine Screen Neg (NEG) Urine Amphetamine/Methamphetamine Neg (NEG) Urine Benzodiazepines Screen Pos (NEG) Urine Cocaine Screen Neg (NEG) Urine Cannabinoids Screen Neg (NEG) Urine Ethyl Alcohol Neg (NEG) O2 Saturation 100 % (92-99) Arterial Blood pH 7.05 (7.35-7.45) Arterial Blood pH (Temp corrected) 7.07 Arterial Blood pCO2 at Patient Temp 25 mmHg (35-46) Arterial Blood pCO2 (Temp correct) 23 mmHg Arterial Blood pO2 at Patient Temp 411 mmHg (65-108) Arterial Blood pO2 (Temp corrected) 402 mmHg Arterial Blood HCO3 7 mmol/L (21-28) Arterial Blood Base Excess -22 mmol/L (-3-3) FiO2 100 White Blood Count 13.0 x10^3/uL (4.0-11.0) Red Blood Count 4.83 x10^6/uL (3.50-5.40) Hemoglobin 14.5 g/dL (12.0-15.5) Hematocrit 44.1 % (36.0-47.0) Mean Corpuscular Volume 91 fL (79-100) Mean Corpuscular Hemoglobin 30 pg (25-35) Mean Corpuscular Hemoglobin Concent 33 g/dL (31-37) Red Cell Distribution Width 16.8 % (11.5-14.5) Platelet Count 141 x10^3/uL (140-400) Lactic Acid Level 1.8 mmol/L (0.4-2.0) Test 09/23/18 06:00 White Blood Count 15.8 x10^3/uL (4.0-11.0) Red Blood Count 4.62 x10^6/uL (3.50-5.40) Hemoglobin 13.7 g/dL (12.0-15.5) Hematocrit 40.9 % (36.0-47.0) Mean Corpuscular Volume 89 fL (79-100) Mean Corpuscular Hemoglobin 30 pg (25-35) Mean Corpuscular Hemoglobin Concent 33 g/dL (31-37) Red Cell Distribution Width 16.6 % (11.5-14.5) Platelet Count 98 x10^3/uL (140-400) Prothrombin Time 19.4 SEC (11.7-14.0) Prothromb Time International Ratio 1.7 (0.8-1.1) Sodium Level 146 mmol/L (136-145) Potassium Level 3.7 mmol/L (3.5-5.1) Chloride Level 108 mmol/L (98-107) Carbon Dioxide Level 18 mmol/L (21-32) Anion Gap 20 (6-14) Blood Urea Nitrogen 38 mg/dL (7-20) Creatinine 1.4 mg/dL (0.6-1.0) Estimated GFR (Cockcroft-Gault) 37.9 BUN/Creatinine Ratio 27 (6-20) Glucose Level 157 mg/dL (70-99) Calcium Level 6.8 mg/dL (8.5-10.1) Phosphorus Level 3.7 mg/dL (2.6-4.7) Magnesium Level 2.2 mg/dL (1.8-2.4) Total Bilirubin 1.7 mg/dL (0.2-1.0) Aspartate Amino Transf (AST/SGOT) 80 U/L (15-37) Alanine Aminotransferase (ALT/SGPT) 39 U/L (14-59) Alkaline Phosphatase 86 U/L (46-116) Total Protein 5.2 g/dL (6.4-8.2) Albumin 2.6 g/dL (3.4-5.0) Albumin/Globulin Ratio 1.0 (1.0-1.7) Procalcitonin 7.29 ng/mL (0.00-0.10) Laboratory Tests Test 09/22/18 17:10 09/22/18 17:15 09/22/18 17:17 09/22/18 17:20 White Blood Count 1.9 x10^3/uL (4.0-11.0) Red Blood Count 2.66 x10^6/uL (3.50-5.40) Hemoglobin 7.8 g/dL (12.0-15.5) Hematocrit 25.6 % (36.0-47.0) Mean Corpuscular Volume 96 fL (79-100) Mean Corpuscular Hemoglobin 29 pg (25-35) Mean Corpuscular Hemoglobin Concent 31 g/dL (31-37) Red Cell Distribution Width 20.7 % (11.5-14.5) Platelet Count 301 x10^3/uL (140-400) Neutrophils (%) (Auto) 31 % (31-73) Lymphocytes (%) (Auto) 66 % (24-48) Monocytes (%) (Auto) 2 % (0-9) Eosinophils (%) (Auto) 1 % (0-3) Basophils (%) (Auto) 0 % (0-3) Neutrophils # (Auto) 0.6 x10^3uL (1.8-7.7) Lymphocytes # (Auto) 1.3 x10^3/uL (1.0-4.8) Monocytes # (Auto) 0.0 x10^3/uL (0.0-1.1) Eosinophils # (Auto) 0.0 x10^3/uL (0.0-0.7) Basophils # (Auto) 0.0 x10^3/uL (0.0-0.2) Segmented Neutrophils % 26 % (35-66) Band Neutrophils % 1 % (0-9) Lymphocytes % 72 % (24-48) Eosinophils % 1 % (0-5) Platelet Estimate Adequate (ADEQUATE) Anisocytosis Mod Prothrombin Time 18.5 SEC (11.7-14.0) Prothromb Time International Ratio 1.6 (0.8-1.1) Activated Partial Thromboplast Time 31 SEC (24-38) Sodium Level 149 mmol/L (136-145) Potassium Level 6.2 mmol/L (3.5-5.1) Chloride Level 121 mmol/L (98-107) Carbon Dioxide Level 7 mmol/L (21-32) Anion Gap 21 (6-14) 16 mmol/L (6-14) Blood Urea Nitrogen 55 mg/dL (7-20) Creatinine 2.3 mg/dL (0.6-1.0) Estimated GFR (Cockcroft-Gault) 21.3 BUN/Creatinine Ratio 24 (6-20) Glucose Level 112 mg/dL (70-99) 103 mg/dL (70-99) Lactic Acid Level 4.1 mmol/L (0.4-2.0) Calcium Level 7.7 mg/dL (8.5-10.1) Phosphorus Level 7.5 mg/dL (2.6-4.7) Magnesium Level 2.1 mg/dL (1.8-2.4) Total Bilirubin 0.3 mg/dL (0.2-1.0) Aspartate Amino Transf (AST/SGOT) 28 U/L (15-37) Alanine Aminotransferase (ALT/SGPT) 26 U/L (14-59) Alkaline Phosphatase 84 U/L (46-116) Creatine Kinase 150 U/L (26-192) Troponin I Quantitative < 0.017 ng/mL (0.000-0.055) IH-Ifk-U-Type Natriuretic Peptide 486 pg/mL (0-124) Total Protein 5.1 g/dL (6.4-8.2) Albumin 2.4 g/dL (3.4-5.0) Albumin/Globulin Ratio 0.9 (1.0-1.7) Lipase 221 U/L (73-393) Salicylates Level 4.7 mg/dL (2.8-20.0) Salicylate Last Dose Date Unk Salicylate Last Dose Time Unk Ethyl Alcohol Level < 10 mg/dL (0-10) Hepatitis B Surface Antigen Nonreactive (Nonreactive) Bedside Troponin I 0.00 ng/ml (<0.08) Bedside Hemoglobin 7.5 g/dL (12-15) Bedside Hematocrit 22 % (36-40) Bedside Sodium 147 mmol/L (135-145) Bedside Potassium 5.9 mmol/L (3.5-5.0) Bedside Chloride 129 mmol/L (98-110) Bedside Total CO2 8 mmol/L (23-32) Bedside Blood Urea Nitrogen 56 mg/dL (8-26) Bedside Creatinine 2.2 mg/dL (0.5-1.4) Bedside Ionized Calcium (Yumi) 1.25 mmol/L (1.13-1.32) O2 Saturation 97 % (92-99) Arterial Blood pH 7.01 (7.35-7.45) Arterial Blood pCO2 at Patient Temp 18 mmHg (35-46) Arterial Blood pO2 at Patient Temp 143 mmHg (65-108) Arterial Blood HCO3 4 mmol/L (21-28) Arterial Blood Base Excess -25 mmol/L (-3-3) FiO2 21 Test 09/22/18 17:45 09/22/18 17:50 09/22/18 21:23 09/22/18 22:30 Stool Occult Blood Positive (NEG) Urine Collection Type Unknown Urine Color Yellow Urine Clarity Clear Urine pH 5.5 Urine Specific Arion 1.010 Urine Protein 30 mg/dL (NEG-TRACE) Urine Glucose (UA) Negative mg/dL (NEG) Urine Ketones (Stick) Trace mg/dL (NEG) Urine Blood Negative (NEG) Urine Nitrite Negative (NEG) Urine Bilirubin Negative (NEG) Urine Urobilinogen Dipstick 1.0 mg/dL (0.2 mg/dL) Urine Leukocyte Esterase Trace (NEG) Urine RBC 0 /HPF (0-2) Urine WBC Occ /HPF (0-4) Urine Squamous Epithelial Cells Few /LPF Urine Bacteria 0 /HPF (0-FEW) Urine Opiates Screen Neg (NEG) Urine Methadone Screen Neg (NEG) Urine Barbiturates Neg (NEG) Urine Phencyclidine Screen Neg (NEG) Urine Amphetamine/Methamphetamine Neg (NEG) Urine Benzodiazepines Screen Pos (NEG) Urine Cocaine Screen Neg (NEG) Urine Cannabinoids Screen Neg (NEG) Urine Ethyl Alcohol Neg (NEG) O2 Saturation 100 % (92-99) Arterial Blood pH 7.05 (7.35-7.45) Arterial Blood pH (Temp corrected) 7.07 Arterial Blood pCO2 at Patient Temp 25 mmHg (35-46) Arterial Blood pCO2 (Temp correct) 23 mmHg Arterial Blood pO2 at Patient Temp 411 mmHg (65-108) Arterial Blood pO2 (Temp corrected) 402 mmHg Arterial Blood HCO3 7 mmol/L (21-28) Arterial Blood Base Excess -22 mmol/L (-3-3) FiO2 100 White Blood Count 13.0 x10^3/uL (4.0-11.0) Red Blood Count 4.83 x10^6/uL (3.50-5.40) Hemoglobin 14.5 g/dL (12.0-15.5) Hematocrit 44.1 % (36.0-47.0) Mean Corpuscular Volume 91 fL (79-100) Mean Corpuscular Hemoglobin 30 pg (25-35) Mean Corpuscular Hemoglobin Concent 33 g/dL (31-37) Red Cell Distribution Width 16.8 % (11.5-14.5) Platelet Count 141 x10^3/uL (140-400) Lactic Acid Level 1.8 mmol/L (0.4-2.0) Test 09/23/18 06:00 White Blood Count 15.8 x10^3/uL (4.0-11.0) Red Blood Count 4.62 x10^6/uL (3.50-5.40) Hemoglobin 13.7 g/dL (12.0-15.5) Hematocrit 40.9 % (36.0-47.0) Mean Corpuscular Volume 89 fL (79-100) Mean Corpuscular Hemoglobin 30 pg (25-35) Mean Corpuscular Hemoglobin Concent 33 g/dL (31-37) Red Cell Distribution Width 16.6 % (11.5-14.5) Platelet Count 98 x10^3/uL (140-400) Prothrombin Time 19.4 SEC (11.7-14.0) Prothromb Time International Ratio 1.7 (0.8-1.1) Sodium Level 146 mmol/L (136-145) Potassium Level 3.7 mmol/L (3.5-5.1) Chloride Level 108 mmol/L (98-107) Carbon Dioxide Level 18 mmol/L (21-32) Anion Gap 20 (6-14) Blood Urea Nitrogen 38 mg/dL (7-20) Creatinine 1.4 mg/dL (0.6-1.0) Estimated GFR (Cockcroft-Gault) 37.9 BUN/Creatinine Ratio 27 (6-20) Glucose Level 157 mg/dL (70-99) Calcium Level 6.8 mg/dL (8.5-10.1) Phosphorus Level 3.7 mg/dL (2.6-4.7) Magnesium Level 2.2 mg/dL (1.8-2.4) Total Bilirubin 1.7 mg/dL (0.2-1.0) Aspartate Amino Transf (AST/SGOT) 80 U/L (15-37) Alanine Aminotransferase (ALT/SGPT) 39 U/L (14-59) Alkaline Phosphatase 86 U/L (46-116) Total Protein 5.2 g/dL (6.4-8.2) Albumin 2.6 g/dL (3.4-5.0) Albumin/Globulin Ratio 1.0 (1.0-1.7) Procalcitonin 7.29 ng/mL (0.00-0.10) Review All relevant outside records, renal labs, imaging studies, telemetry/EKG's were reviewed. Images Images Chest x-ray from this morning IMPRESSION: Mild left lung atelectasis or scarring. No consolidating infiltrate. CT scan: Limited exam due to lack of IV contrast. 1. Tip of the ET tube is in the proximal right mainstem bronchus and should be withdrawn by approximately 3 cm. 2. Partial consolidation in the left lower lobe and along the superior aspect of the right major fissure may be secondary to atelectasis or pneumonia. 3. Mild loss of thoracic and lumbar vertebral bodies most likely mild compression deformities, age indeterminate but likely chronic. 4. Large amount of colonic stool burden, patient may be constipated. Findings discussed with Dr. Cardona on 09/22/2018 at 8:40 PM. HOLLI VERDIN MD Sep 23, 2018 08:37
[2018-09-23 08:44] LABS: BASE EXCESS ABG -6 mmol/L (-3-3); FIO2 ABG 50; HCO3 ABG 17 mmol/L (21-28); PCO2 ABG 26 mmHg (35-46); PO2 ABG 188 mmHg (65-108); SAT O2 ABG 99 % (92-99)
[2018-09-23] MEDS: IPRATRPIUM/ALBUTEROL 0.5/2.5MG 3 ML NEBU. NEB SCH ×4 (08:58→19:47)
[2018-09-23] MEDS ORDERED: POTASSIUM CHLORIDE IV SCH ×10 (10:00)
[2018-09-23] MEDS ORDERED: SODIUM BICARBONATE IV SCH ×10 (10:00)
[2018-09-23] MEDS ORDERED: MAGNESIUM SULFATE IV SCH ×10 (10:00)
[2018-09-23] MEDS ORDERED: [UNRECOGNIZED DRUG - OTHER] IV SCH ×10 (10:00)
--- NOTE | 2018-09-23 10:05 | PDOC ---
Dialysis Progress Note Dialysis Note Dialysis Note Seen on CRRT, tolerating treatment Well Vitals on Hemodialysis: 147/77 (wendy) 76 EXAM: remains sedated and intubated Extremities - No Edema MARII/ ATN - now oliguric : was on Ibuprofen at home per my D/w Dr Seay and review of OP clinic notes. No incriminating Rx found that would explain Acidosis per se. Ct CRRT. ABG noted : Vent adjustments per Pulm and RT Vitals Vital Signs Vital Signs Date Time Temp Pulse Resp B/P (MAP) Pulse Ox O2 Delivery O2 Flow Rate FiO2 09/23/18 08:23 100 Ventilator 09/23/18 08:00 09/23/18 06:36 97.2 97.2 09/23/18 06:00 82 24 Labs Last Labs Laboratory Tests Test 09/22/18 17:10 09/22/18 17:15 09/22/18 17:17 09/22/18 17:20 White Blood Count 1.9 x10^3/uL (4.0-11.0) Red Blood Count 2.66 x10^6/uL (3.50-5.40) Hemoglobin 7.8 g/dL (12.0-15.5) Hematocrit 25.6 % (36.0-47.0) Mean Corpuscular Volume 96 fL (79-100) Mean Corpuscular Hemoglobin 29 pg (25-35) Mean Corpuscular Hemoglobin Concent 31 g/dL (31-37) Red Cell Distribution Width 20.7 % (11.5-14.5) Platelet Count 301 x10^3/uL (140-400) Neutrophils (%) (Auto) 31 % (31-73) Lymphocytes (%) (Auto) 66 % (24-48) Monocytes (%) (Auto) 2 % (0-9) Eosinophils (%) (Auto) 1 % (0-3) Basophils (%) (Auto) 0 % (0-3) Neutrophils # (Auto) 0.6 x10^3uL (1.8-7.7) Lymphocytes # (Auto) 1.3 x10^3/uL (1.0-4.8) Monocytes # (Auto) 0.0 x10^3/uL (0.0-1.1) Eosinophils # (Auto) 0.0 x10^3/uL (0.0-0.7) Basophils # (Auto) 0.0 x10^3/uL (0.0-0.2) Segmented Neutrophils % 26 % (35-66) Band Neutrophils % 1 % (0-9) Lymphocytes % 72 % (24-48) Eosinophils % 1 % (0-5) Platelet Estimate Adequate (ADEQUATE) Anisocytosis Mod Prothrombin Time 18.5 SEC (11.7-14.0) Prothromb Time International Ratio 1.6 (0.8-1.1) Activated Partial Thromboplast Time 31 SEC (24-38) Sodium Level 149 mmol/L (136-145) Potassium Level 6.2 mmol/L (3.5-5.1) Chloride Level 121 mmol/L (98-107) Carbon Dioxide Level 7 mmol/L (21-32) Anion Gap 21 (6-14) 16 mmol/L (6-14) Blood Urea Nitrogen 55 mg/dL (7-20) Creatinine 2.3 mg/dL (0.6-1.0) Estimated GFR (Cockcroft-Gault) 21.3 BUN/Creatinine Ratio 24 (6-20) Glucose Level 112 mg/dL (70-99) 103 mg/dL (70-99) Lactic Acid Level 4.1 mmol/L (0.4-2.0) Calcium Level 7.7 mg/dL (8.5-10.1) Phosphorus Level 7.5 mg/dL (2.6-4.7) Magnesium Level 2.1 mg/dL (1.8-2.4) Total Bilirubin 0.3 mg/dL (0.2-1.0) Aspartate Amino Transf (AST/SGOT) 28 U/L (15-37) Alanine Aminotransferase (ALT/SGPT) 26 U/L (14-59) Alkaline Phosphatase 84 U/L (46-116) Creatine Kinase 150 U/L (26-192) Troponin I Quantitative < 0.017 ng/mL (0.000-0.055) BK-Bgo-[id number]-Type Natriuretic Peptide 486 pg/mL (0-124) Total Protein 5.1 g/dL (6.4-8.2) Albumin 2.4 g/dL (3.4-5.0) Albumin/Globulin Ratio 0.9 (1.0-1.7) Lipase 221 U/L (73-393) Salicylates Level 4.7 mg/dL (2.8-20.0) Salicylate Last Dose Date Unk Salicylate Last Dose Time Unk Ethyl Alcohol Level < 10 mg/dL (0-10) Hepatitis B Surface Antigen Nonreactive (Nonreactive) Bedside Troponin I 0.00 ng/ml (<0.08) Bedside Hemoglobin 7.5 g/dL (12-15) Bedside Hematocrit 22 % (36-40) Bedside Sodium 147 mmol/L (135-145) Bedside Potassium 5.9 mmol/L (3.5-5.0) Bedside Chloride 129 mmol/L (98-110) Bedside Total CO2 8 mmol/L (23-32) Bedside Blood Urea Nitrogen 56 mg/dL (8-26) Bedside Creatinine 2.2 mg/dL (0.5-1.4) Bedside Ionized Calcium (Yumi) 1.25 mmol/L (1.13-1.32) O2 Saturation 97 % (92-99) Arterial Blood pH 7.01 (7.35-7.45) Arterial Blood pCO2 at Patient Temp 18 mmHg (35-46) Arterial Blood pO2 at Patient Temp 143 mmHg (65-108) Arterial Blood HCO3 4 mmol/L (21-28) Arterial Blood Base Excess -25 mmol/L (-3-3) FiO2 21 Test 09/22/18 17:45 09/22/18 17:50 09/22/18 21:23 09/22/18 22:30 Stool Occult Blood Positive (NEG) Urine Collection Type Unknown Urine Color Yellow Urine Clarity Clear Urine pH 5.5 Urine Specific [place] 1.010 Urine Protein 30 mg/dL (NEG-TRACE) Urine Glucose (UA) Negative mg/dL (NEG) Urine Ketones (Stick) Trace mg/dL (NEG) Urine Blood Negative (NEG) Urine Nitrite Negative (NEG) Urine Bilirubin Negative (NEG) Urine Urobilinogen Dipstick 1.0 mg/dL (0.2 mg/dL) Urine Leukocyte Esterase Trace (NEG) Urine RBC 0 /HPF (0-2) Urine WBC Occ /HPF (0-4) Urine Squamous Epithelial Cells Few /LPF Urine Bacteria 0 /HPF (0-FEW) Urine Opiates Screen Neg (NEG) Urine Methadone Screen Neg (NEG) Urine Barbiturates Neg (NEG) Urine Phencyclidine Screen Neg (NEG) Urine Amphetamine/Methamphetamine Neg (NEG) Urine Benzodiazepines Screen Pos (NEG) Urine Cocaine Screen Neg (NEG) Urine Cannabinoids Screen Neg (NEG) Urine Ethyl Alcohol Neg (NEG) O2 Saturation 100 % (92-99) Arterial Blood pH 7.05 (7.35-7.45) Arterial Blood pH (Temp corrected) 7.07 Arterial Blood pCO2 at Patient Temp 25 mmHg (35-46) Arterial Blood pCO2 (Temp correct) 23 mmHg Arterial Blood pO2 at Patient Temp 411 mmHg (65-108) Arterial Blood pO2 (Temp corrected) 402 mmHg Arterial Blood HCO3 7 mmol/L (21-28) Arterial Blood Base Excess -22 mmol/L (-3-3) FiO2 100 White Blood Count 13.0 x10^3/uL (4.0-11.0) Red Blood Count 4.83 x10^6/uL (3.50-5.40) Hemoglobin 14.5 g/dL (12.0-15.5) Hematocrit 44.1 % (36.0-47.0) Mean Corpuscular Volume 91 fL (79-100) Mean Corpuscular Hemoglobin 30 pg (25-35) Mean Corpuscular Hemoglobin Concent 33 g/dL (31-37) Red Cell Distribution Width 16.8 % (11.5-14.5) Platelet Count 141 x10^3/uL (140-400) Lactic Acid Level 1.8 mmol/L (0.4-2.0) Test 09/23/18 06:00 09/23/18 08:00 White Blood Count 15.8 x10^3/uL (4.0-11.0) Red Blood Count 4.62 x10^6/uL (3.50-5.40) Hemoglobin 13.7 g/dL (12.0-15.5) Hematocrit 40.9 % (36.0-47.0) Mean Corpuscular Volume 89 fL (79-100) Mean Corpuscular Hemoglobin 30 pg (25-35) Mean Corpuscular Hemoglobin Concent 33 g/dL (31-37) Red Cell Distribution Width 16.6 % (11.5-14.5) Platelet Count 98 x10^3/uL (140-400) Prothrombin Time 19.4 SEC (11.7-14.0) Prothromb Time International Ratio 1.7 (0.8-1.1) Sodium Level 146 mmol/L (136-145) Potassium Level 3.7 mmol/L (3.5-5.1) Chloride Level 108 mmol/L (98-107) Carbon Dioxide Level 18 mmol/L (21-32) Anion Gap 20 (6-14) Blood Urea Nitrogen 38 mg/dL (7-20) Creatinine 1.4 mg/dL (0.6-1.0) Estimated GFR (Cockcroft-Gault) 37.9 BUN/Creatinine Ratio 27 (6-20) Glucose Level 157 mg/dL (70-99) Calcium Level 6.8 mg/dL (8.5-10.1) Phosphorus Level 3.7 mg/dL (2.6-4.7) Magnesium Level 2.2 mg/dL (1.8-2.4) Total Bilirubin 1.7 mg/dL (0.2-1.0) Aspartate Amino Transf (AST/SGOT) 80 U/L (15-37) Alanine Aminotransferase (ALT/SGPT) 39 U/L (14-59) Alkaline Phosphatase 86 U/L (46-116) Total Protein 5.2 g/dL (6.4-8.2) Albumin 2.6 g/dL (3.4-5.0) Albumin/Globulin Ratio 1.0 (1.0-1.7) Procalcitonin 7.29 ng/mL (0.00-0.10) O2 Saturation 99 % (92-99) Arterial Blood pH 7.43 (7.35-7.45) Arterial Blood pCO2 at Patient Temp 26 mmHg (35-46) Arterial Blood pO2 at Patient Temp 188 mmHg (65-108) Arterial Blood HCO3 17 mmol/L (21-28) Arterial Blood Base Excess -6 mmol/L (-3-3) FiO2 50 Laboratory Tests Test 09/22/18 17:10 09/22/18 17:15 09/22/18 17:17 09/22/18 17:20 White Blood Count 1.9 x10^3/uL (4.0-11.0) Red Blood Count 2.66 x10^6/uL (3.50-5.40) Hemoglobin 7.8 g/dL (12.0-15.5) Hematocrit 25.6 % (36.0-47.0) Mean Corpuscular Volume 96 fL (79-100) Mean Corpuscular Hemoglobin 29 pg (25-35) Mean Corpuscular Hemoglobin Concent 31 g/dL (31-37) Red Cell Distribution Width 20.7 % (11.5-14.5) Platelet Count 301 x10^3/uL (140-400) Neutrophils (%) (Auto) 31 % (31-73) Lymphocytes (%) (Auto) 66 % (24-48) Monocytes (%) (Auto) 2 % (0-9) Eosinophils (%) (Auto) 1 % (0-3) Basophils (%) (Auto) 0 % (0-3) Neutrophils # (Auto) 0.6 x10^3uL (1.8-7.7) Lymphocytes # (Auto) 1.3 x10^3/uL (1.0-4.8) Monocytes # (Auto) 0.0 x10^3/uL (0.0-1.1) Eosinophils # (Auto) 0.0 x10^3/uL (0.0-0.7) Basophils # (Auto) 0.0 x10^3/uL (0.0-0.2) Segmented Neutrophils % 26 % (35-66) Band Neutrophils % 1 % (0-9) Lymphocytes % 72 % (24-48) Eosinophils % 1 % (0-5) Platelet Estimate Adequate (ADEQUATE) Anisocytosis Mod Prothrombin Time 18.5 SEC (11.7-14.0) Prothromb Time International Ratio 1.6 (0.8-1.1) Activated Partial Thromboplast Time 31 SEC (24-38) Sodium Level 149 mmol/L (136-145) Potassium Level 6.2 mmol/L (3.5-5.1) Chloride Level 121 mmol/L (98-107) Carbon Dioxide Level 7 mmol/L (21-32) Anion Gap 21 (6-14) 16 mmol/L (6-14) Blood Urea Nitrogen 55 mg/dL (7-20) Creatinine 2.3 mg/dL (0.6-1.0) Estimated GFR (Cockcroft-Gault) 21.3 BUN/Creatinine Ratio 24 (6-20) Glucose Level 112 mg/dL (70-99) 103 mg/dL (70-99) Lactic Acid Level 4.1 mmol/L (0.4-2.0) Calcium Level 7.7 mg/dL (8.5-10.1) Phosphorus Level 7.5 mg/dL (2.6-4.7) Magnesium Level 2.1 mg/dL (1.8-2.4) Total Bilirubin 0.3 mg/dL (0.2-1.0) Aspartate Amino Transf (AST/SGOT) 28 U/L (15-37) Alanine Aminotransferase (ALT/SGPT) 26 U/L (14-59) Alkaline Phosphatase 84 U/L (46-116) Creatine Kinase 150 U/L (26-192) Troponin I Quantitative < 0.017 ng/mL (0.000-0.055) JB-Uug-X-Type Natriuretic Peptide 486 pg/mL (0-124) Total Protein 5.1 g/dL (6.4-8.2) Albumin 2.4 g/dL (3.4-5.0) Albumin/Globulin Ratio 0.9 (1.0-1.7) Lipase 221 U/L (73-393) Salicylates Level 4.7 mg/dL (2.8-20.0) Salicylate Last Dose Date Unk Salicylate Last Dose Time Unk Ethyl Alcohol Level < 10 mg/dL (0-10) Hepatitis B Surface Antigen Nonreactive (Nonreactive) Bedside Troponin I 0.00 ng/ml (<0.08) Bedside Hemoglobin 7.5 g/dL (12-15) Bedside Hematocrit 22 % (36-40) Bedside Sodium 147 mmol/L (135-145) Bedside Potassium 5.9 mmol/L (3.5-5.0) Bedside Chloride 129 mmol/L (98-110) Bedside Total CO2 8 mmol/L (23-32) Bedside Blood Urea Nitrogen 56 mg/dL (8-26) Bedside Creatinine 2.2 mg/dL (0.5-1.4) Bedside Ionized Calcium (Yumi) 1.25 mmol/L (1.13-1.32) O2 Saturation 97 % (92-99) Arterial Blood pH 7.01 (7.35-7.45) Arterial Blood pCO2 at Patient Temp 18 mmHg (35-46) Arterial Blood pO2 at Patient Temp 143 mmHg (65-108) Arterial Blood HCO3 4 mmol/L (21-28) Arterial Blood Base Excess -25 mmol/L (-3-3) FiO2 21 Test 2/23/19 17:45 09/22/18 17:50 09/22/18 21:23 09/22/18 22:30 Stool Occult Blood Positive (NEG) Urine Collection Type Unknown Urine Color Yellow Urine Clarity Clear Urine pH 5.5 Urine Specific [place] 1.010 Urine Protein 30 mg/dL (NEG-TRACE) Urine Glucose (UA) Negative mg/dL (NEG) Urine Ketones (Stick) Trace mg/dL (NEG) Urine Blood Negative (NEG) Urine Nitrite Negative (NEG) Urine Bilirubin Negative (NEG) Urine Urobilinogen Dipstick 1.0 mg/dL (0.2 mg/dL) Urine Leukocyte Esterase Trace (NEG) Urine RBC 0 /HPF (0-2) Urine WBC Occ /HPF (0-4) Urine Squamous Epithelial Cells Few /LPF Urine Bacteria 0 /HPF (0-FEW) Urine Opiates Screen Neg (NEG) Urine Methadone Screen Neg (NEG) Urine Barbiturates Neg (NEG) Urine Phencyclidine Screen Neg (NEG) Urine Amphetamine/Methamphetamine Neg (NEG) Urine Benzodiazepines Screen Pos (NEG) Urine Cocaine Screen Neg (NEG) Urine Cannabinoids Screen Neg (NEG) Urine Ethyl Alcohol Neg (NEG) O2 Saturation 100 % (92-99) Arterial Blood pH 7.05 (7.35-7.45) Arterial Blood pH (Temp corrected) 7.07 Arterial Blood pCO2 at Patient Temp 25 mmHg (35-46) Arterial Blood pCO2 (Temp correct) 23 mmHg Arterial Blood pO2 at Patient Temp 411 mmHg (65-108) Arterial Blood pO2 (Temp corrected) 402 mmHg Arterial Blood HCO3 7 mmol/L (21-28) Arterial Blood Base Excess -22 mmol/L (-3-3) FiO2 100 White Blood Count 13.0 x10^3/uL (4.0-11.0) Red Blood Count 4.83 x10^6/uL (3.50-5.40) Hemoglobin 14.5 g/dL (12.0-15.5) Hematocrit 44.1 % (36.0-47.0) Mean Corpuscular Volume 91 fL (79-100) Mean Corpuscular Hemoglobin 30 pg (25-35) Mean Corpuscular Hemoglobin Concent 33 g/dL (31-37) Red Cell Distribution Width 16.8 % (11.5-14.5) Platelet Count 141 x10^3/uL (140-400) Lactic Acid Level 1.8 mmol/L (0.4-2.0) Test 09/23/18 06:00 09/23/18 08:00 White Blood Count 15.8 x10^3/uL (4.0-11.0) Red Blood Count 4.62 x10^6/uL (3.50-5.40) Hemoglobin 13.7 g/dL (12.0-15.5) Hematocrit 40.9 % (36.0-47.0) Mean Corpuscular Volume 89 fL (79-100) Mean Corpuscular Hemoglobin 30 pg (25-35) Mean Corpuscular Hemoglobin Concent 33 g/dL (31-37) Red Cell Distribution Width 16.6 % (11.5-14.5) Platelet Count 98 x10^3/uL (140-400) Prothrombin Time 19.4 SEC (11.7-14.0) Prothromb Time International Ratio 1.7 (0.8-1.1) Sodium Level 146 mmol/L (136-145) Potassium Level 3.7 mmol/L (3.5-5.1) Chloride Level 108 mmol/L (98-107) Carbon Dioxide Level 18 mmol/L (21-32) Anion Gap 20 (6-14) Blood Urea Nitrogen 38 mg/dL (7-20) Creatinine 1.4 mg/dL (0.6-1.0) Estimated GFR (Cockcroft-Gault) 37.9 BUN/Creatinine Ratio 27 (6-20) Glucose Level 157 mg/dL (70-99) Calcium Level 6.8 mg/dL (8.5-10.1) Phosphorus Level 3.7 mg/dL (2.6-4.7) Magnesium Level 2.2 mg/dL (1.8-2.4) Total Bilirubin 1.7 mg/dL (0.2-1.0) Aspartate Amino Transf (AST/SGOT) 80 U/L (15-37) Alanine Aminotransferase (ALT/SGPT) 39 U/L (14-59) Alkaline Phosphatase 86 U/L (46-116) Total Protein 5.2 g/dL (6.4-8.2) Albumin 2.6 g/dL (3.4-5.0) Albumin/Globulin Ratio 1.0 (1.0-1.7) Procalcitonin 7.29 ng/mL (0.00-0.10) O2 Saturation 99 % (92-99) Arterial Blood pH 7.43 (7.35-7.45) Arterial Blood pCO2 at Patient Temp 26 mmHg (35-46) Arterial Blood pO2 at Patient Temp 188 mmHg (65-108) Arterial Blood HCO3 17 mmol/L (21-28) Arterial Blood Base Excess -6 mmol/L (-3-3) FiO2 50 HOLLI VERDIN MD Sep 23, 2018 10:05
--- NOTE | 2018-09-23 10:09 | PDOC ---
PROGRESS NOTES Subjective Subjective Patient sedated, resting quietly on vent. Objective Objective Vital Signs Date Time Temp Pulse Resp B/P (MAP) Pulse Ox O2 Delivery O2 Flow Rate FiO2 09/23/18 08:23 100 Ventilator 09/23/18 08:00 09/23/18 06:36 97.2 97.2 09/23/18 06:00 82 24 Intake and Output 09/23/18 07:00 Intake Total 2050 ml Output Total 590 ml Balance 1460 ml Intake Oral 0 ml IV Total 2050 ml Output Urine Total 490 ml Gastric Drainage Total 100 ml Physical Exam Abdomen: Soft, No tenderness, Other (some BS present) Heart: Regular rate Extremities: No edema General: No acute distress Lungs: Clear to auscultation (anteriorly) Plan Plan of Care 1. Metabolic acidosis with acute renal failure - underlying cause unclear at this time. Labs much improved with CRRT overnight, continue management per Renal. May have been taking Ibuprofen at home. 2. acute respiratory failure - stable on vent. Most recent CXR without definite infiltrate. Continue management per Pulmonary. Does have history of asthma, nonsmoker. 3. GI bleed - heme positive stool in ER, no apparent bleeding since admission. Hgb at admission about at her baseline with hx of iron-deficiency anemia. Hgb much higher after transfusions last night. 4. schizophrenia/bipolar mood disorder - unclear what medication she is on from her Psychiatrist. Positive for benzos at admission, not prescribed these from our office. 5. hx HTN - had been on low dose Lisinopril several months ago but this was tapered down then d/c at office visits as her BP remained mildly low on it. 6. hyperglycemia - not on any medication for this and last A1C with us was 4.8. Comment Review of Relevant I have reviewed the following items michelle (where applicable) has been applied. Labs Laboratory Tests Test 09/22/18 17:10 09/22/18 17:15 09/22/18 17:17 09/22/18 17:20 White Blood Count 1.9 x10^3/uL (4.0-11.0) Red Blood Count 2.66 x10^6/uL (3.50-5.40) Hemoglobin 7.8 g/dL (12.0-15.5) Hematocrit 25.6 % (36.0-47.0) Mean Corpuscular Volume 96 fL (79-100) Mean Corpuscular Hemoglobin 29 pg (25-35) Mean Corpuscular Hemoglobin Concent 31 g/dL (31-37) Red Cell Distribution Width 20.7 % (11.5-14.5) Platelet Count 301 x10^3/uL (140-400) Neutrophils (%) (Auto) 31 % (31-73) Lymphocytes (%) (Auto) 66 % (24-48) Monocytes (%) (Auto) 2 % (0-9) Eosinophils (%) (Auto) 1 % (0-3) Basophils (%) (Auto) 0 % (0-3) Neutrophils # (Auto) 0.6 x10^3uL (1.8-7.7) Lymphocytes # (Auto) 1.3 x10^3/uL (1.0-4.8) Monocytes # (Auto) 0.0 x10^3/uL (0.0-1.1) Eosinophils # (Auto) 0.0 x10^3/uL (0.0-0.7) Basophils # (Auto) 0.0 x10^3/uL (0.0-0.2) Segmented Neutrophils % 26 % (35-66) Band Neutrophils % 1 % (0-9) Lymphocytes % 72 % (24-48) Eosinophils % 1 % (0-5) Platelet Estimate Adequate (ADEQUATE) Anisocytosis Mod Prothrombin Time 18.5 SEC (11.7-14.0) Prothromb Time International Ratio 1.6 (0.8-1.1) Activated Partial Thromboplast Time 31 SEC (24-38) Sodium Level 149 mmol/L (136-145) Potassium Level 6.2 mmol/L (3.5-5.1) Chloride Level 121 mmol/L (98-107) Carbon Dioxide Level 7 mmol/L (21-32) Anion Gap 21 (6-14) 16 mmol/L (6-14) Blood Urea Nitrogen 55 mg/dL (7-20) Creatinine 2.3 mg/dL (0.6-1.0) Estimated GFR (Cockcroft-Gault) 21.3 BUN/Creatinine Ratio 24 (6-20) Glucose Level 112 mg/dL (70-99) 103 mg/dL (70-99) Lactic Acid Level 4.1 mmol/L (0.4-2.0) Calcium Level 7.7 mg/dL (8.5-10.1) Phosphorus Level 7.5 mg/dL (2.6-4.7) Magnesium Level 2.1 mg/dL (1.8-2.4) Total Bilirubin 0.3 mg/dL (0.2-1.0) Aspartate Amino Transf (AST/SGOT) 28 U/L (15-37) Alanine Aminotransferase (ALT/SGPT) 26 U/L (14-59) Alkaline Phosphatase 84 U/L (46-116) Creatine Kinase 150 U/L (26-192) Troponin I Quantitative < 0.017 ng/mL (0.000-0.055) [id number]-Type Natriuretic Peptide 486 pg/mL (0-124) Total Protein 5.1 g/dL (6.4-8.2) Albumin 2.4 g/dL (3.4-5.0) Albumin/Globulin Ratio 0.9 (1.0-1.7) Lipase 221 U/L (73-393) Salicylates Level 4.7 mg/dL (2.8-20.0) Salicylate Last Dose Date Unk Salicylate Last Dose Time Unk Ethyl Alcohol Level < 10 mg/dL (0-10) Hepatitis B Surface Antigen Nonreactive (Nonreactive) Bedside Troponin I 0.00 ng/ml (<0.08) Bedside Hemoglobin 7.5 g/dL (12-15) Bedside Hematocrit 22 % (36-40) Bedside Sodium 147 mmol/L (135-145) Bedside Potassium 5.9 mmol/L (3.5-5.0) Bedside Chloride 129 mmol/L (98-110) Bedside Total CO2 8 mmol/L (23-32) Bedside Blood Urea Nitrogen 56 mg/dL (8-26) Bedside Creatinine 2.2 mg/dL (0.5-1.4) Bedside Ionized Calcium (Yumi) 1.25 mmol/L (1.13-1.32) O2 Saturation 97 % (92-99) Arterial Blood pH 7.01 (7.35-7.45) Arterial Blood pCO2 at Patient Temp 18 mmHg (35-46) Arterial Blood pO2 at Patient Temp 143 mmHg (65-108) Arterial Blood HCO3 4 mmol/L (21-28) Arterial Blood Base Excess -25 mmol/L (-3-3) FiO2 21 Test 2/23/19 17:45 09/22/18 17:50 09/22/18 21:23 09/22/18 22:30 Stool Occult Blood Positive (NEG) Urine Collection Type Unknown Urine Color Yellow Urine Clarity Clear Urine pH 5.5 Urine Specific [place] 1.010 Urine Protein 30 mg/dL (NEG-TRACE) Urine Glucose (UA) Negative mg/dL (NEG) Urine Ketones (Stick) Trace mg/dL (NEG) Urine Blood Negative (NEG) Urine Nitrite Negative (NEG) Urine Bilirubin Negative (NEG) Urine Urobilinogen Dipstick 1.0 mg/dL (0.2 mg/dL) Urine Leukocyte Esterase Trace (NEG) Urine RBC 0 /HPF (0-2) Urine WBC Occ /HPF (0-4) Urine Squamous Epithelial Cells Few /LPF Urine Bacteria 0 /HPF (0-FEW) Urine Opiates Screen Neg (NEG) Urine Methadone Screen Neg (NEG) Urine Barbiturates Neg (NEG) Urine Phencyclidine Screen Neg (NEG) Urine Amphetamine/Methamphetamine Neg (NEG) Urine Benzodiazepines Screen Pos (NEG) Urine Cocaine Screen Neg (NEG) Urine Cannabinoids Screen Neg (NEG) Urine Ethyl Alcohol Neg (NEG) O2 Saturation 100 % (92-99) Arterial Blood pH 7.05 (7.35-7.45) Arterial Blood pH (Temp corrected) 7.07 Arterial Blood pCO2 at Patient Temp 25 mmHg (35-46) Arterial Blood pCO2 (Temp correct) 23 mmHg Arterial Blood pO2 at Patient Temp 411 mmHg (65-108) Arterial Blood pO2 (Temp corrected) 402 mmHg Arterial Blood HCO3 7 mmol/L (21-28) Arterial Blood Base Excess -22 mmol/L (-3-3) FiO2 100 White Blood Count 13.0 x10^3/uL (4.0-11.0) Red Blood Count 4.83 x10^6/uL (3.50-5.40) Hemoglobin 14.5 g/dL (12.0-15.5) Hematocrit 44.1 % (36.0-47.0) Mean Corpuscular Volume 91 fL (79-100) Mean Corpuscular Hemoglobin 30 pg (25-35) Mean Corpuscular Hemoglobin Concent 33 g/dL (31-37) Red Cell Distribution Width 16.8 % (11.5-14.5) Platelet Count 141 x10^3/uL (140-400) Lactic Acid Level 1.8 mmol/L (0.4-2.0) Test 09/23/18 06:00 09/23/18 08:00 White Blood Count 15.8 x10^3/uL (4.0-11.0) Red Blood Count 4.62 x10^6/uL (3.50-5.40) Hemoglobin 13.7 g/dL (12.0-15.5) Hematocrit 40.9 % (36.0-47.0) Mean Corpuscular Volume 89 fL (79-100) Mean Corpuscular Hemoglobin 30 pg (25-35) Mean Corpuscular Hemoglobin Concent 33 g/dL (31-37) Red Cell Distribution Width 16.6 % (11.5-14.5) Platelet Count 98 x10^3/uL (140-400) Prothrombin Time 19.4 SEC (11.7-14.0) Prothromb Time International Ratio 1.7 (0.8-1.1) Sodium Level 146 mmol/L (136-145) Potassium Level 3.7 mmol/L (3.5-5.1) Chloride Level 108 mmol/L (98-107) Carbon Dioxide Level 18 mmol/L (21-32) Anion Gap 20 (6-14) Blood Urea Nitrogen 38 mg/dL (7-20) Creatinine 1.4 mg/dL (0.6-1.0) Estimated GFR (Cockcroft-Gault) 37.9 BUN/Creatinine Ratio 27 (6-20) Glucose Level 157 mg/dL (70-99) Calcium Level 6.8 mg/dL (8.5-10.1) Phosphorus Level 3.7 mg/dL (2.6-4.7) Magnesium Level 2.2 mg/dL (1.8-2.4) Total Bilirubin 1.7 mg/dL (0.2-1.0) Aspartate Amino Transf (AST/SGOT) 80 U/L (15-37) Alanine Aminotransferase (ALT/SGPT) 39 U/L (14-59) Alkaline Phosphatase 86 U/L (46-116) Total Protein 5.2 g/dL (6.4-8.2) Albumin 2.6 g/dL (3.4-5.0) Albumin/Globulin Ratio 1.0 (1.0-1.7) Procalcitonin 7.29 ng/mL (0.00-0.10) O2 Saturation 99 % (92-99) Arterial Blood pH 7.43 (7.35-7.45) Arterial Blood pCO2 at Patient Temp 26 mmHg (35-46) Arterial Blood pO2 at Patient Temp 188 mmHg (65-108) Arterial Blood HCO3 17 mmol/L (21-28) Arterial Blood Base Excess -6 mmol/L (-3-3) FiO2 50 Laboratory Tests Test 09/22/18 17:10 09/22/18 17:15 09/22/18 17:17 09/22/18 17:20 White Blood Count 1.9 x10^3/uL (4.0-11.0) Red Blood Count 2.66 x10^6/uL (3.50-5.40) Hemoglobin 7.8 g/dL (12.0-15.5) Hematocrit 25.6 % (36.0-47.0) Mean Corpuscular Volume 96 fL (79-100) Mean Corpuscular Hemoglobin 29 pg (25-35) Mean Corpuscular Hemoglobin Concent 31 g/dL (31-37) Red Cell Distribution Width 20.7 % (11.5-14.5) Platelet Count 301 x10^3/uL (140-400) Neutrophils (%) (Auto) 31 % (31-73) Lymphocytes (%) (Auto) 66 % (24-48) Monocytes (%) (Auto) 2 % (0-9) Eosinophils (%) (Auto) 1 % (0-3) Basophils (%) (Auto) 0 % (0-3) Neutrophils # (Auto) 0.6 x10^3uL (1.8-7.7) Lymphocytes # (Auto) 1.3 x10^3/uL (1.0-4.8) Monocytes # (Auto) 0.0 x10^3/uL (0.0-1.1) Eosinophils # (Auto) 0.0 x10^3/uL (0.0-0.7) Basophils # (Auto) 0.0 x10^3/uL (0.0-0.2) Segmented Neutrophils % 26 % (35-66) Band Neutrophils % 1 % (0-9) Lymphocytes % 72 % (24-48) Eosinophils % 1 % (0-5) Platelet Estimate Adequate (ADEQUATE) Anisocytosis Mod Prothrombin Time 18.5 SEC (11.7-14.0) Prothromb Time International Ratio 1.6 (0.8-1.1) Activated Partial Thromboplast Time 31 SEC (24-38) Sodium Level 149 mmol/L (136-145) Potassium Level 6.2 mmol/L (3.5-5.1) Chloride Level 121 mmol/L (98-107) Carbon Dioxide Level 7 mmol/L (21-32) Anion Gap 21 (6-14) 16 mmol/L (6-14) Blood Urea Nitrogen 55 mg/dL (7-20) Creatinine 2.3 mg/dL (0.6-1.0) Estimated GFR (Cockcroft-Gault) 21.3 BUN/Creatinine Ratio 24 (6-20) Glucose Level 112 mg/dL (70-99) 103 mg/dL (70-99) Lactic Acid Level 4.1 mmol/L (0.4-2.0) Calcium Level 7.7 mg/dL (8.5-10.1) Phosphorus Level 7.5 mg/dL (2.6-4.7) Magnesium Level 2.1 mg/dL (1.8-2.4) Total Bilirubin 0.3 mg/dL (0.2-1.0) Aspartate Amino Transf (AST/SGOT) 28 U/L (15-37) Alanine Aminotransferase (ALT/SGPT) 26 U/L (14-59) Alkaline Phosphatase 84 U/L (46-116) Creatine Kinase 150 U/L (26-192) Troponin I Quantitative < 0.017 ng/mL (0.000-0.055) GG-[id number]-Type Natriuretic Peptide 486 pg/mL (0-124) Total Protein 5.1 g/dL (6.4-8.2) Albumin 2.4 g/dL (3.4-5.0) Albumin/Globulin Ratio 0.9 (1.0-1.7) Lipase 221 U/L (73-393) Salicylates Level 4.7 mg/dL (2.8-20.0) Salicylate Last Dose Date Unk Salicylate Last Dose Time Unk Ethyl Alcohol Level < 10 mg/dL (0-10) Hepatitis B Surface Antigen Nonreactive (Nonreactive) Bedside Troponin I 0.00 ng/ml (<0.08) Bedside Hemoglobin 7.5 g/dL (12-15) Bedside Hematocrit 22 % (36-40) Bedside Sodium 147 mmol/L (135-145) Bedside Potassium 5.9 mmol/L (3.5-5.0) Bedside Chloride 129 mmol/L (98-110) Bedside Total CO2 8 mmol/L (23-32) Bedside Blood Urea Nitrogen 56 mg/dL (8-26) Bedside Creatinine 2.2 mg/dL (0.5-1.4) Bedside Ionized Calcium (Yumi) 1.25 mmol/L (1.13-1.32) O2 Saturation 97 % (92-99) Arterial Blood pH 7.01 (7.35-7.45) Arterial Blood pCO2 at Patient Temp 18 mmHg (35-46) Arterial Blood pO2 at Patient Temp 143 mmHg (65-108) Arterial Blood HCO3 4 mmol/L (21-28) Arterial Blood Base Excess -25 mmol/L (-3-3) FiO2 21 Test 09/22/18 17:45 09/22/18 17:50 09/22/18 21:23 09/22/18 22:30 Stool Occult Blood Positive (NEG) Urine Collection Type Unknown Urine Color Yellow Urine Clarity Clear Urine pH 5.5 Urine Specific [place] 1.010 Urine Protein 30 mg/dL (NEG-TRACE) Urine Glucose (UA) Negative mg/dL (NEG) Urine Ketones (Stick) Trace mg/dL (NEG) Urine Blood Negative (NEG) Urine Nitrite Negative (NEG) Urine Bilirubin Negative (NEG) Urine Urobilinogen Dipstick 1.0 mg/dL (0.2 mg/dL) Urine Leukocyte Esterase Trace (NEG) Urine RBC 0 /HPF (0-2) Urine WBC Occ /HPF (0-4) Urine Squamous Epithelial Cells Few /LPF Urine Bacteria 0 /HPF (0-FEW) Urine Opiates Screen Neg (NEG) Urine Methadone Screen Neg (NEG) Urine Barbiturates Neg (NEG) Urine Phencyclidine Screen Neg (NEG) Urine Amphetamine/Methamphetamine Neg (NEG) Urine Benzodiazepines Screen Pos (NEG) Urine Cocaine Screen Neg (NEG) Urine Cannabinoids Screen Neg (NEG) Urine Ethyl Alcohol Neg (NEG) O2 Saturation 100 % (92-99) Arterial Blood pH 7.05 (7.35-7.45) Arterial Blood pH (Temp corrected) 7.07 Arterial Blood pCO2 at Patient Temp 25 mmHg (35-46) Arterial Blood pCO2 (Temp correct) 23 mmHg Arterial Blood pO2 at Patient Temp 411 mmHg (65-108) Arterial Blood pO2 (Temp corrected) 402 mmHg Arterial Blood HCO3 7 mmol/L (21-28) Arterial Blood Base Excess -22 mmol/L (-3-3) FiO2 100 White Blood Count 13.0 x10^3/uL (4.0-11.0) Red Blood Count 4.83 x10^6/uL (3.50-5.40) Hemoglobin 14.5 g/dL (12.0-15.5) Hematocrit 44.1 % (36.0-47.0) Mean Corpuscular Volume 91 fL (79-100) Mean Corpuscular Hemoglobin 30 pg (25-35) Mean Corpuscular Hemoglobin Concent 33 g/dL (31-37) Red Cell Distribution Width 16.8 % (11.5-14.5) Platelet Count 141 x10^3/uL (140-400) Lactic Acid Level 1.8 mmol/L (0.4-2.0) Test 09/23/18 06:00 09/23/18 08:00 White Blood Count 15.8 x10^3/uL (4.0-11.0) Red Blood Count 4.62 x10^6/uL (3.50-5.40) Hemoglobin 13.7 g/dL (12.0-15.5) Hematocrit 40.9 % (36.0-47.0) Mean Corpuscular Volume 89 fL (79-100) Mean Corpuscular Hemoglobin 30 pg (25-35) Mean Corpuscular Hemoglobin Concent 33 g/dL (31-37) Red Cell Distribution Width 16.6 % (11.5-14.5) Platelet Count 98 x10^3/uL (140-400) Prothrombin Time 19.4 SEC (11.7-14.0) Prothromb Time International Ratio 1.7 (0.8-1.1) Sodium Level 146 mmol/L (136-145) Potassium Level 3.7 mmol/L (3.5-5.1) Chloride Level 108 mmol/L (98-107) Carbon Dioxide Level 18 mmol/L (21-32) Anion Gap 20 (6-14) Blood Urea Nitrogen 38 mg/dL (7-20) Creatinine 1.4 mg/dL (0.6-1.0) Estimated GFR (Cockcroft-Gault) 37.9 BUN/Creatinine Ratio 27 (6-20) Glucose Level 157 mg/dL (70-99) Calcium Level 6.8 mg/dL (8.5-10.1) Phosphorus Level 3.7 mg/dL (2.6-4.7) Magnesium Level 2.2 mg/dL (1.8-2.4) Total Bilirubin 1.7 mg/dL (0.2-1.0) Aspartate Amino Transf (AST/SGOT) 80 U/L (15-37) Alanine Aminotransferase (ALT/SGPT) 39 U/L (14-59) Alkaline Phosphatase 86 U/L (46-116) Total Protein 5.2 g/dL (6.4-8.2) Albumin 2.6 g/dL (3.4-5.0) Albumin/Globulin Ratio 1.0 (1.0-1.7) Procalcitonin 7.29 ng/mL (0.00-0.10) O2 Saturation 99 % (92-99) Arterial Blood pH 7.43 (7.35-7.45) Arterial Blood pCO2 at Patient Temp 26 mmHg (35-46) Arterial Blood pO2 at Patient Temp 188 mmHg (65-108) Arterial Blood HCO3 17 mmol/L (21-28) Arterial Blood Base Excess -6 mmol/L (-3-3) FiO2 50 Medications Current Medications Sodium Chloride 1,000 ml @ 1,000 mls/hr 1X ONCE IV Last administered on at 17:18; Start 09/22/18 at 17:15; Stop 09/22/18 at 18:14; Status DC Pantoprazole Sodium 80 mg/ Sodium Chloride 100 ml @ 10 mls/hr Q10H IV Last administered on 09/23/18at 00:54; Start 09/22/18 at 17:15 Pantoprazole Sodium (PROTONIX VIAL for IV PUSH) 80 mg 1X ONCE IVP Last administered on 09/22/18at 17:39; Start 09/22/18 at 17:15; Stop 09/22/18 at 17:17 ; Status DC Ceftriaxone Sodium (Rocephin) 1 gm 1X ONCE IVP ; Start 09/22/18 at 17:30; Stop 09/22/18 at 17:30; Status DC Sodium Chloride 1,000 ml @ 1,000 mls/hr 1X ONCE IV Last administered on at 17:27; Start 09/22/18 at 17:30; Stop 09/22/18 at 18:29; Status DC Vancomycin HCl (Vanco Per Pharmacy) 1 each PRN DAILY PRN MC SEE COMMENTS Last administered on 09/22/18at 21:08; Start 09/22/18 at 17:30 Piperacillin Sod/ Tazobactam Sod (Zosyn Per Pharmacy) 1 each PRN DAILY PRN MC SEE COMMENTS; Start 09/22/18 at 17:30 Piperacillin Sod/ Tazobactam Sod 3.375 gm/Sodium Chloride 50 ml @ 100 mls/hr 1X ONCE IV Last administered on 09/22/18at 18:04; Start 09/22/18 at 17:30; Stop 09/22/18 at 17:59; Status DC Vancomycin HCl 1.75 gm/Sodium Chloride 500 ml @ 250 mls/hr 1X ONCE IV Last administered on 09/22/18at 23:28; Start 09/22/18 at 17:30; Stop 09/22/18 at 19:29 ; Status DC Sodium Bicarbonate (Sodium Bicarb Adult 8.4% Syr) 50 meq 1X ONCE IV Last administered on 09/22/18at 18:03; Start 09/22/18 at 17:45; Stop 09/22/18 at 17:46 ; Status DC Norepinephrine Bitartrate 250 ml @ 0 mls/hr 1X ONCE IV Last administered on at 17:51; Start 09/22/18 at 17:45; Stop 09/22/18 at 17:46; Status DC Sodium Bicarbonate 150 meq/Sterile Water 1,150 ml @ 125 mls/hr 1X ONCE IV Last administered on 09/22/18at 18:30; Start 09/22/18 at 18:30; Stop 09/23/18 at 03:41; Status DC Piperacillin Sod/ Tazobactam Sod 3.375 gm/Sodium Chloride 50 ml @ 100 mls/hr Q6HRS IV Last administered on 09/23/18at 05:01; Start 09/23/18 at 00:00 Vasopressin 40 unit/Dextrose 102 ml @ 6 mls/hr CONT PRN IV SEE I/O RECORD; Start 09/22/18 at 18:45 Fentanyl Citrate (Fentanyl 2ml Vial) 50 mcg 1X ONCE IV ; Start 09/22/18 at 19: 00; Stop 09/22/18 at 19:01; Status DC Midazolam HCl 100 ml @ 5 mls/hr CONT PRN IV SEE I/O RECORD; Start 09/22/18 at 19:00 Lidocaine/Sodium Bicarbonate (Buffered Lidocaine 1%) 4 ml 1X ONCE INJ Last administered on 09/22/18at 19:15; Start 09/22/18 at 19:15; Stop 09/22/18 at 19:18 ; Status DC Heparin Sodium (Porcine) (Heparin Sodium) 2,500 unit 1X ONCE INT CAT Last administered on 09/22/18at 19:15; Start 09/22/18 at 19:15; Stop 09/22/18 at 19:18 ; Status DC Heparin Sodium (Porcine) (Heparin Sodium) 10,000 unit STK-MED ONCE .ROUTE ; Start 09/22/18 at 19:17; Stop 09/22/18 at 19:18; Status DC Sodium Bicarbonate 40 meq/Potassium Chloride 15 meq/ Magnesium Sulfate 5 meq/ Calcium Chloride 2.5 meq/ Bicarbonate Dialysis Soln w/ out KCl 5,050.5172 ml @ 1 ,000 mls/hr Q5H4M IV Last administered on 09/23/18at 05:02; Start 09/22/18 at 22 :00; Stop 09/23/18 at 08:43; Status DC Sodium Bicarbonate 40 meq/Potassium Chloride 15 meq/ Magnesium Sulfate 5 meq/ Calcium Chloride 2.5 meq/ Bicarbonate Dialysis Soln w/ out KCl 5,050.5172 ml @ 1 ,000 mls/hr Q5H4M IV Last administered on 09/23/18at 05:02; Start 09/22/18 at 22 :00; Stop 09/23/18 at 08:43; Status DC Sodium Bicarbonate 150 meq/Sterile Water 1,150 ml @ 300 mls/hr Q3H50M IV Last administered on 09/23/18at 06:08; Start 09/22/18 at 22:00 Etomidate (Amidate) 20 mg STK-MED ONCE IV ; Start 09/22/18 at 20:36; Stop at 20:37; Status DC Rocuronium [place] (Zemuron) 50 mg STK-MED ONCE .ROUTE ; Start 09/22/18 at 20:36 ; Stop 09/22/18 at 20:37; Status DC Norepinephrine Bitartrate 250 ml @ 1.875 mls/ hr CONT PRN IV SEE I/O RECORD Last administered on 09/23/18at 05:38; Start 09/22/18 at 23:30 Fentanyl Citrate (Fentanyl 2ml Vial) 50 mcg PRN Q1HR PRN IV PAIN Last administered on 09/23/18at 03:28; Start 09/22/18 at 23:30 Epinephrine HCl 4 mg/Sodium Chloride 254 ml @ 26.44 mls/ hr CONT PRN IV SEE I/ O RECORD; Start 09/23/18 at 02:15 Albuterol/ Ipratropium (Duoneb) 3 ml RTQID NEB Last administered on 09/23/18at 08:58; Start 09/23/18 at 08:00 Sodium Bicarbonate 40 meq/Potassium Chloride 15 meq/ Magnesium Sulfate 5 meq/ Calcium Chloride 17.5 meq/ Bicarbonate Dialysis Soln w/ out KCl 5,061.2315 ml @ 1,000 mls/hr Q5H4M IV ; Start 09/23/18 at 10:00 Sodium Bicarbonate 40 meq/Potassium Chloride 15 meq/ Magnesium Sulfate 5 meq/ Calcium Chloride 17.5 meq/ Bicarbonate Dialysis Soln w/ out KCl 5,061.2315 ml @ 1,000 mls/hr Q5H4M IV ; Start 09/23/18 at 10:00 Active Scripts Active Reported Ventolin Hfa Inhaler (Albuterol Sulfate) 18 Gm Hfa.aer.ad 2 Puff INH Q4HRS PRN Pristiq Er (Desvenlafaxine Succinate) 50 Mg Tab.er.24h 1 Tab PO DAILY Amitriptyline Hcl 25 Mg Tablet 1 Tab PO QHS Diazepam 5 Mg Tablet 5 Mg PO TID Gabapentin (Gabapentin) 300 Mg Capsule 300 Mg PO TID Vitals/I & O Vital Sign - Last 24 Hours 09/22/18 09/22/18 09/22/18 09/22/18 16:57 17:56 17:58 18:01 Temp 97.7 97.7 Pulse 92 81 82 86 Resp 8 B/P (MAP) 105/64 (78) Pulse Ox 100 100 100 100 O2 Delivery Room Air 09/22/18 09/22/18 09/22/18 09/22/18 18:11 18:50 18:51 21:00 Temp 95.6 95.6 Pulse 86 100 98 Resp 20 B/P (MAP) Pulse Ox 100 100 100 98 O2 Delivery Ventilator Ventilator 09/22/18 09/22/18 09/22/18 09/22/18 21:30 21:30 21:30 22:00 Pulse 98 88 Resp 20 20 B/P (MAP) 96/52 (67) 75/48 (57) Pulse Ox 100 98 98 O2 Delivery Mechanical Ventilator Ventilator Ventilator Ventilator 09/22/18 09/22/18 09/23/18 09/23/18 23:00 23:56 00:00 00:00 Temp 96.2 96.2 Pulse 98 94 Resp 20 24 B/P (MAP) 95/46 (62) 134/68 (90) 95/75 (82) 100/59 (73) Pulse Ox 98 100 98 O2 Delivery Ventilator Ventilator Ventilator 09/23/18 09/23/18 09/23/18 09/23/18 01:00 01:00 01:27 01:50 Temp 96.9 96.9 Pulse 96 98 Resp 24 B/P (MAP) 144/68 (93) 156/74 (101) 160/101 (120) Pulse Ox 98 98 100 O2 Delivery Ventilator Mechanical Ventilator Ventilator Ventilator 09/23/18 09/23/18 09/23/18 09/23/18 02:00 02:30 03:00 03:40 Temp 100.5 97.6 100.5 97.6 Pulse 93 91 Resp 24 B/P (MAP) 126/84 (98) 112/75 (87) 112/65 (81) Pulse Ox 96 99 100 O2 Delivery Ventilator Ventilator Ventilator 09/23/18 09/23/18 09/23/18 09/23/18 04:00 04:00 04:00 04:00 Temp 97.7 97.7 Pulse 94 86 Resp 24 24 B/P (MAP) 134/68 (90) 116/75 (89) 100/59 (73) 119/69 (86) Pulse Ox 98 98 O2 Delivery Ventilator Ventilator Mechanical Ventilator Ventilator 09/23/18 09/23/18 09/23/18 09/23/18 04:00 05:39 06:00 06:36 Temp 97.2 97.2 Pulse 82 Resp 24 B/P (MAP) 137/78 (97) 147/66 (93) Pulse Ox 100 100 O2 Delivery Ventilator Ventilator 09/23/18 09/23/18 09/23/18 08:00 08:00 08:23 B/P (MAP) Pulse Ox 100 O2 Delivery Mechanical Ventilator Ventilator Intake and Output 09/22/18 09/22/18 09/23/18 15:00 23:00 07:00 Intake Total 2000 ml 50 ml Output Total 400 ml 190 ml Balance 1600 ml -140 ml MILY COOK MD Sep 23, 2018 10:09
--- NOTE | 2018-09-23 10:54 | HP ---
ADMIT DATE: 09/22/2018 CHIEF COMPLAINT: Altered mental status. HISTORY OF PRESENT ILLNESS: The patient is a 63-year-old female who was brought to the Emergency Room via ambulance with the above complaint. The family reported that they found the patient unresponsive at home. She had experienced a large black tarry stool and had then become unresponsive. When brought to the Emergency Room, she was hypotensive and minimally responsive. Labs showed a profound metabolic acidosis with initial pH of 7.01. Stool was positive for blood. She was electively intubated and admitted for further care. PAST MEDICAL HISTORY: Asthma, schizophrenia/bipolar mood disorder, hypertension and iron-deficiency anemia. PAST SURGICAL HISTORY: Appendectomy, cholecystectomy, C-sections, gastric bypass and knee replacement. ALLERGIES: THE PATIENT IS ALLERGIC OR INTOLERANT TO ASPIRIN, MORPHINE AND OXYCODONE. HOME MEDICATIONS: This list may not be accurate, gabapentin 300 mg t.i.d., ibuprofen p.r.n., desvenlafaxine 50 mg daily, amitriptyline 25 mg at bedtime, Ventolin or albuterol breathing treatments as needed and iron 325 mg daily. FAMILY HISTORY: Noncontributory. SOCIAL HISTORY: The patient is single. She is not employed. She moved to this area several months ago to live with her son and [id number]. She has never smoked cigarettes. There is some report of drinking beer to excess. REVIEW OF SYSTEMS: This is presently unobtainable. The patient was seen in our office last week due to family concerns about a change in her mental status. At that time, she was alert and responsive, but did seem somewhat disoriented. Family reported that her psychiatrist had recently started her on some new medication as she seemed to be having more trouble with hearing voices, etc. Family did not know the name of that medication. The family had started giving her daily iron as they were advised to do after her last lab at our office showed an iron-deficiency anemia. She had an office visit coming up with Dr. Buckley for further evaluation of her anemia. She was taking lisinopril 10 mg daily, but this was discontinued at the office visit as her blood pressure was somewhat low on it. PHYSICAL EXAMINATION: GENERAL: The patient is sedated, resting comfortably on the ventilator. CHEST: Clear to auscultation anteriorly. CARDIOVASCULAR: Regular rhythm. ABDOMEN: Soft, nontender. Bowel sounds are present. EXTREMITIES: Without edema. ASSESSMENT AND PLAN: 1. Severe metabolic acidosis with acute renal failure. The underlying cause for this is unclear at this time. The patient has been seen by Dr. Barnett and has been on CRRT overnight. Her acidosis and electrolytes are much improved. We will continue management per Renal recommendations. 2. Acute respiratory failure. The patient is stable on the ventilator. Initial chest x-ray had a concern for possible infiltrate, but the most recent chest x-ray does not show a definite infiltrate. She is on broad spectrum antibiotics. Continue management per Pulmonary. 3. Gastrointestinal bleed. The patient's stool was heme positive in the Emergency Room. She has had no apparent bleeding since admission. Her hemoglobin at admission was about at her baseline with her history of iron-deficiency anemia. The patient did receive several units of blood and her hemoglobin is much higher today. A consult with Gastroenterology is pending. 4. Schizophrenia/bipolar mood disorder. It is unclear what exactly she is on from her psychiatrist. Her urine drug screen was positive for benzodiazepines at admission. She is not prescribed these from our office, but could certainly have had them from her psychiatrist. Medication is on hold at this time due to her decreased mental status and can be resumed as needed. 5. History of hypertension. The patient's blood pressure had been running low for some time and her lisinopril was tapered, then discontinued at office visits. She required pressors at admission, but these are being weaned at this time. It is anticipated she will not need medication for hypertension. 6. Hyperglycemia. The patient is not on any medication for this. Her last A1c with us was 4.8, indicating no significant chronic hyperglycemia. MILY COOK MD DR: SEGUN/nanette JOB#: [id number] / [id number] JOSE RAUL
--- NOTE | 2018-09-23 11:52 | PDOC2 ---
GI CONSULT Reason For Consult: Anemia/heme positive stools/overt bleeding? HPI: HPI: 63 y/o female brought by family to ER after apparent collapse at home. Possible history of "dark emesis and stools" preceding this. Patient currently intubated/on ventilator and no history from her. Others' notes reviewed. At presentation, profound metabolic acidosis and drop in hemoglobin from last month when here. Some history to suggest ELISABETH identified prior to hospitalization and on po iron at home. No prior GI history available. Noted to have prior cholecystectomy. Not taking antisecretory apparently prior to admission. Did apparently have upcoming appointment in our office re; the anemia. Some h/o possible preexisting renal abnormalities on office labs. Since here, only bilious NG output. During my exam had black stool, but more suggestive of iron or PB as cause from appearance. Unclear any prior endoscopy. Hemoglobin has been stable since rapid transfusion of PRBC's in ER. Acidosis much improved. On CRRT for MARII. As I review the CT, there seems to be evidence of prior gastric surgery (bypass? ) and some surgical suture related to dilated area of small bowel (citlali-en-Y?). PMH: PMH: HTN, anxiety, depression, schizophrenia, TIA, ETOH/substance abuse. S/P semaj, hysterectomy, bilateral shoulder operations. Does have upper midline scar suggesting another procedure. FH: Family History: Other (Not obtainable from patient.) Social History: ALCOHOL: none Drugs: None ROS: Unable to obtain. Vitals: Vitals: Vital Signs Date Time Temp Pulse Resp B/P (MAP) Pulse Ox O2 Delivery O2 Flow Rate FiO2 09/23/18 10:00 138/76 (96) 100 Ventilator 09/23/18 09:00 97.1 78 97.1 09/23/18 06:00 24 Labs: Labs: Laboratory Tests Test 09/22/18 17:10 09/22/18 17:15 09/22/18 17:17 09/22/18 17:20 White Blood Count 1.9 x10^3/uL (4.0-11.0) Red Blood Count 2.66 x10^6/uL (3.50-5.40) Hemoglobin 7.8 g/dL (12.0-15.5) Hematocrit 25.6 % (36.0-47.0) Mean Corpuscular Volume 96 fL (79-100) Mean Corpuscular Hemoglobin 29 pg (25-35) Mean Corpuscular Hemoglobin Concent 31 g/dL (31-37) Red Cell Distribution Width 20.7 % (11.5-14.5) Platelet Count 301 x10^3/uL (140-400) Neutrophils (%) (Auto) 31 % (31-73) Lymphocytes (%) (Auto) 66 % (24-48) Monocytes (%) (Auto) 2 % (0-9) Eosinophils (%) (Auto) 1 % (0-3) Basophils (%) (Auto) 0 % (0-3) Neutrophils # (Auto) 0.6 x10^3uL (1.8-7.7) Lymphocytes # (Auto) 1.3 x10^3/uL (1.0-4.8) Monocytes # (Auto) 0.0 x10^3/uL (0.0-1.1) Eosinophils # (Auto) 0.0 x10^3/uL (0.0-0.7) Basophils # (Auto) 0.0 x10^3/uL (0.0-0.2) Segmented Neutrophils % 26 % (35-66) Band Neutrophils % 1 % (0-9) Lymphocytes % 72 % (24-48) Eosinophils % 1 % (0-5) Platelet Estimate Adequate (ADEQUATE) Anisocytosis Mod Prothrombin Time 18.5 SEC (11.7-14.0) Prothromb Time International Ratio 1.6 (0.8-1.1) Activated Partial Thromboplast Time 31 SEC (24-38) Sodium Level 149 mmol/L (136-145) Potassium Level 6.2 mmol/L (3.5-5.1) Chloride Level 121 mmol/L (98-107) Carbon Dioxide Level 7 mmol/L (21-32) Anion Gap 21 (6-14) 16 mmol/L (6-14) Blood Urea Nitrogen 55 mg/dL (7-20) Creatinine 2.3 mg/dL (0.6-1.0) Estimated GFR (Cockcroft-Gault) 21.3 BUN/Creatinine Ratio 24 (6-20) Glucose Level 112 mg/dL (70-99) 103 mg/dL (70-99) Lactic Acid Level 4.1 mmol/L (0.4-2.0) Calcium Level 7.7 mg/dL (8.5-10.1) Phosphorus Level 7.5 mg/dL (2.6-4.7) Magnesium Level 2.1 mg/dL (1.8-2.4) Total Bilirubin 0.3 mg/dL (0.2-1.0) Aspartate Amino Transf (AST/SGOT) 28 U/L (15-37) Alanine Aminotransferase (ALT/SGPT) 26 U/L (14-59) Alkaline Phosphatase 84 U/L (46-116) Creatine Kinase 150 U/L (26-192) Troponin I Quantitative < 0.017 ng/mL (0.000-0.055) GM-Ptw-A-Type Natriuretic Peptide 486 pg/mL (0-124) Total Protein 5.1 g/dL (6.4-8.2) Albumin 2.4 g/dL (3.4-5.0) Albumin/Globulin Ratio 0.9 (1.0-1.7) Lipase 221 U/L (73-393) Salicylates Level 4.7 mg/dL (2.8-20.0) Salicylate Last Dose Date Unk Salicylate Last Dose Time Unk Ethyl Alcohol Level < 10 mg/dL (0-10) Hepatitis B Surface Antigen Nonreactive (Nonreactive) Bedside Troponin I 0.00 ng/ml (<0.08) Bedside Hemoglobin 7.5 g/dL (12-15) Bedside Hematocrit 22 % (36-40) Bedside Sodium 147 mmol/L (135-145) Bedside Potassium 5.9 mmol/L (3.5-5.0) Bedside Chloride 129 mmol/L (98-110) Bedside Total CO2 8 mmol/L (23-32) Bedside Blood Urea Nitrogen 56 mg/dL (8-26) Bedside Creatinine 2.2 mg/dL (0.5-1.4) Bedside Ionized Calcium (Yumi) 1.25 mmol/L (1.13-1.32) O2 Saturation 97 % (92-99) Arterial Blood pH 7.01 (7.35-7.45) Arterial Blood pCO2 at Patient Temp 18 mmHg (35-46) Arterial Blood pO2 at Patient Temp 143 mmHg (65-108) Arterial Blood HCO3 4 mmol/L (21-28) Arterial Blood Base Excess -25 mmol/L (-3-3) FiO2 21 Test 2/23/19 17:45 09/22/18 17:50 09/22/18 21:23 09/22/18 22:30 Stool Occult Blood Positive (NEG) Urine Collection Type Unknown Urine Color Yellow Urine Clarity Clear Urine pH 5.5 Urine Specific [place] 1.010 Urine Protein 30 mg/dL (NEG-TRACE) Urine Glucose (UA) Negative mg/dL (NEG) Urine Ketones (Stick) Trace mg/dL (NEG) Urine Blood Negative (NEG) Urine Nitrite Negative (NEG) Urine Bilirubin Negative (NEG) Urine Urobilinogen Dipstick 1.0 mg/dL (0.2 mg/dL) Urine Leukocyte Esterase Trace (NEG) Urine RBC 0 /HPF (0-2) Urine WBC Occ /HPF (0-4) Urine Squamous Epithelial Cells Few /LPF Urine Bacteria 0 /HPF (0-FEW) Urine Opiates Screen Neg (NEG) Urine Methadone Screen Neg (NEG) Urine Barbiturates Neg (NEG) Urine Phencyclidine Screen Neg (NEG) Urine Amphetamine/Methamphetamine Neg (NEG) Urine Benzodiazepines Screen Pos (NEG) Urine Cocaine Screen Neg (NEG) Urine Cannabinoids Screen Neg (NEG) Urine Ethyl Alcohol Neg (NEG) O2 Saturation 100 % (92-99) Arterial Blood pH 7.05 (7.35-7.45) Arterial Blood pH (Temp corrected) 7.07 Arterial Blood pCO2 at Patient Temp 25 mmHg (35-46) Arterial Blood pCO2 (Temp correct) 23 mmHg Arterial Blood pO2 at Patient Temp 411 mmHg (65-108) Arterial Blood pO2 (Temp corrected) 402 mmHg Arterial Blood HCO3 7 mmol/L (21-28) Arterial Blood Base Excess -22 mmol/L (-3-3) FiO2 100 White Blood Count 13.0 x10^3/uL (4.0-11.0) Red Blood Count 4.83 x10^6/uL (3.50-5.40) Hemoglobin 14.5 g/dL (12.0-15.5) Hematocrit 44.1 % (36.0-47.0) Mean Corpuscular Volume 91 fL (79-100) Mean Corpuscular Hemoglobin 30 pg (25-35) Mean Corpuscular Hemoglobin Concent 33 g/dL (31-37) Red Cell Distribution Width 16.8 % (11.5-14.5) Platelet Count 141 x10^3/uL (140-400) Lactic Acid Level 1.8 mmol/L (0.4-2.0) Test 09/23/18 06:00 09/23/18 08:00 White Blood Count 15.8 x10^3/uL (4.0-11.0) Red Blood Count 4.62 x10^6/uL (3.50-5.40) Hemoglobin 13.7 g/dL (12.0-15.5) Hematocrit 40.9 % (36.0-47.0) Mean Corpuscular Volume 89 fL (79-100) Mean Corpuscular Hemoglobin 30 pg (25-35) Mean Corpuscular Hemoglobin Concent 33 g/dL (31-37) Red Cell Distribution Width 16.6 % (11.5-14.5) Platelet Count 98 x10^3/uL (140-400) Prothrombin Time 19.4 SEC (11.7-14.0) Prothromb Time International Ratio 1.7 (0.8-1.1) Sodium Level 146 mmol/L (136-145) Potassium Level 3.7 mmol/L (3.5-5.1) Chloride Level 108 mmol/L (98-107) Carbon Dioxide Level 18 mmol/L (21-32) Anion Gap 20 (6-14) Blood Urea Nitrogen 38 mg/dL (7-20) Creatinine 1.4 mg/dL (0.6-1.0) Estimated GFR (Cockcroft-Gault) 37.9 BUN/Creatinine Ratio 27 (6-20) Glucose Level 157 mg/dL (70-99) Calcium Level 6.8 mg/dL (8.5-10.1) Phosphorus Level 3.7 mg/dL (2.6-4.7) Magnesium Level 2.2 mg/dL (1.8-2.4) Total Bilirubin 1.7 mg/dL (0.2-1.0) Aspartate Amino Transf (AST/SGOT) 80 U/L (15-37) Alanine Aminotransferase (ALT/SGPT) 39 U/L (14-59) Alkaline Phosphatase 86 U/L (46-116) Total Protein 5.2 g/dL (6.4-8.2) Albumin 2.6 g/dL (3.4-5.0) Albumin/Globulin Ratio 1.0 (1.0-1.7) Procalcitonin 7.29 ng/mL (0.00-0.10) O2 Saturation 99 % (92-99) Arterial Blood pH 7.43 (7.35-7.45) Arterial Blood pCO2 at Patient Temp 26 mmHg (35-46) Arterial Blood pO2 at Patient Temp 188 mmHg (65-108) Arterial Blood HCO3 17 mmol/L (21-28) Arterial Blood Base Excess -6 mmol/L (-3-3) FiO2 50 Allergies: Coded Allergies: morphine (Verified Allergy, Severe, swelling, 07/01/18) aspirin (Verified Allergy, Intermediate, 07/05/18) TOLERATES IBUPROFEN oxycodone (Verified Allergy, Intermediate, 07/05/18) Medications: Current Medications Medications (Trade) Dose Ordered Sig/Ashli Route PRN Reason Start Time Stop Time Status Last Admin Dose Admin Sodium Chloride 1,000 ml @ 1,000 mls/hr 1X ONCE IV 09/22/18 17:15 09/22/18 18:14 DC 09/22/18 17:18 Pantoprazole Sodium 80 mg/ Sodium Chloride 100 ml @ 10 mls/hr Q10H IV 09/22/18 17:15 09/23/18 00:54 Pantoprazole Sodium (PROTONIX VIAL for IV PUSH) 80 mg 1X ONCE IVP 09/22/18 17:15 09/22/18 17:17 DC 09/22/18 17:39 Sodium Chloride 1,000 ml @ 1,000 mls/hr 1X ONCE IV 09/22/18 17:30 09/22/18 18:29 DC 09/22/18 17:27 Vancomycin HCl (Vanco Per Pharmacy) 1 each PRN DAILY PRN MC SEE COMMENTS 09/22/18 17:30 09/22/18 21:08 Piperacillin Sod/ Tazobactam Sod 3.375 gm/Sodium Chloride 50 ml @ 100 mls/hr 1X ONCE IV 09/22/18 17:30 09/22/18 17:59 DC 09/22/18 18:04 Vancomycin HCl 1.75 gm/Sodium Chloride 500 ml @ 250 mls/hr 1X ONCE IV 09/22/18 17:30 09/22/18 19:29 DC 09/22/18 23:28 Sodium Bicarbonate (Sodium Bicarb Adult 8.4% Syr) 50 meq 1X ONCE IV 09/22/18 17:45 09/22/18 17:46 DC 09/22/18 18:03 Norepinephrine Bitartrate 250 ml @ 0 mls/hr 1X ONCE IV 09/22/18 17:45 09/22/18 17:46 DC 09/22/18 17:51 Sodium Bicarbonate 150 meq/Sterile Water 1,150 ml @ 125 mls/hr 1X ONCE IV 09/22/18 18:30 09/23/18 03:41 DC 09/22/18 18:30 Piperacillin Sod/ Tazobactam Sod 3.375 gm/Sodium Chloride 50 ml @ 100 mls/hr Q6HRS IV 09/23/18 00:00 09/23/18 05:01 Lidocaine/Sodium Bicarbonate (Buffered Lidocaine 1%) 4 ml 1X ONCE INJ 09/22/18 19:15 09/22/18 19:18 DC 09/22/18 19:15 Heparin Sodium (Porcine) (Heparin Sodium) 2,500 unit 1X ONCE INT CAT 09/22/18 19:15 09/22/18 19:18 DC 09/22/18 19:15 Sodium Bicarbonate 40 meq/Potassium Chloride 15 meq/ Magnesium Sulfate 5 meq/Calcium Chloride 2.5 meq/ Bicarbonate Dialysis Soln w/ out KCl 5,050.5172 ml @ 1,000 mls/hr Q5H4M IV 09/22/18 22:00 09/23/18 08:43 DC 09/23/18 05:02 Sodium Bicarbonate 40 meq/Potassium Chloride 15 meq/ Magnesium Sulfate 5 meq/Calcium Chloride 2.5 meq/ Bicarbonate Dialysis Soln w/ out KCl 5,050.5172 ml @ 1,000 mls/hr Q5H4M IV 09/22/18 22:00 09/23/18 08:43 DC 09/23/18 05:02 Sodium Bicarbonate 150 meq/Sterile Water 1,150 ml @ 300 mls/hr Q3H50M IV 09/22/18 22:00 09/23/18 10:44 Norepinephrine Bitartrate 250 ml @ 1.875 mls/ hr CONT PRN IV SEE I/O RECORD 09/22/18 23:30 09/23/18 05:38 Fentanyl Citrate (Fentanyl 2ml Vial) 50 mcg PRN Q1HR PRN IV PAIN 09/22/18 23:30 09/23/18 03:28 Albuterol/ Ipratropium (Duoneb) 3 ml RTQID NEB 09/23/18 08:00 09/23/18 08:58 Sodium Bicarbonate 40 meq/Potassium Chloride 15 meq/ Magnesium Sulfate 5 meq/Calcium Chloride 17.5 meq/ Bicarbonate Dialysis Soln w/ out KCl 5,061.2315 ml @ 1,000 mls/hr Q5H4M IV 09/23/18 10:00 09/23/18 10:32 DC 09/23/18 10:13 Sodium Bicarbonate 40 meq/Potassium Chloride 15 meq/ Magnesium Sulfate 5 meq/Calcium Chloride 17.5 meq/ Bicarbonate Dialysis Soln w/ out KCl 5,061.2315 ml @ 1,000 mls/hr Q5H4M IV 09/23/18 10:00 09/23/18 10:33 DC 09/23/18 10:12 Sodium Bicarbonate 40 meq/Potassium Chloride 15 meq/ Magnesium Sulfate 5 meq/Calcium Chloride 5 meq/ Bicarbonate Dialysis Soln w/ out KCl 5,052.3029 ml @ 1,000 mls/hr Q5H4M IV 09/23/18 11:00 09/23/18 11:12 Sodium Bicarbonate 40 meq/Potassium Chloride 15 meq/ Magnesium Sulfate 5 meq/Calcium Chloride 5 meq/ Bicarbonate Dialysis Soln w/ out KCl 5,052.3029 ml @ 1,000 mls/hr Q5H4M IV 09/23/18 10:45 09/23/18 11:12 Imaging: Imaging: CT reviewed as above. No mention of any changes of gut ischemia. PE: GEN: Sedated on ventilator/intubated. HEENT: Atraumatic LUNGS: CTAB HEART: RRR, no murmurs ABD: NABS, S/ND, no masses. RUQ semaj scar, Pfannenstiel scar, upper midline scar. EXTREMITY: No edema SKIN: No rashes, no jaundice NEURO/PSYCH: A & O 3 A/P: A/P: IMP: Possible UGI bleeding; history unclear. Bile in NG currently and stools not consistent with melena (history of po iron use as well). Did have drop in hemoglobin from historical baseline, but not major. If prior gastric bypass, at risk for stomal ulcer(s). Profound acidosis, much improved, cause unclear--septic? CT suggests LLL pneumonia/atelectasis. H/o pre-existing ELISABETH--is heme positive, but probably not unexpected with presenting situation. Status of any prior endoscopy unknown. Gut lesion(s ) possible as would be effects of gastric bypass if present. REC: Continue PPI drip, monitor hemoglobin. Seems not need for urgent endoscopy, but will plan on EGD tomorrow unless active bleeding today needing intervention. Continue other support. --other pending. Thank you for allowing me to assist in the care of this patient. Please call if questions. DANIA VELA MD Sep 23, 2018 11:52
--- NOTE | 2018-09-23 11:55 | EKG ---
[facility] [address] [place] [address] Test Date: 2018-09-22 Test Time: 17:26:38 Pat Name: ISABELL BUCIO Department: Room: [facility] Gender: F Change Agent: : 1955 Requested By: HALLIE ALLISON Order Number: [id number] Reading MD: Jt Dash Measurements Intervals [place] Rate: 84 P: 56 VT: 144 QRS: 67 QRSD: 82 T: 70 QT: 382 QTc: 455 Interpretive Statements SINUS RHYTHM Electronically Signed On 10-02-2018 10:37:50 [employer]ERWEAR [employer]IMMER by Jt Dash
[2018-09-23 12:27] LABS: CALCIUM 7.6 mg/dL (8.5-10.1); CREATININE 1.2 mg/dL (0.6-1.0); GFR 45.2; MAGNESIUM 2.4 mg/dL (1.8-2.4); PHOSPHORUS 3.5 mg/dL (2.6-4.7); POTASSIUM 3.5 mmol/L (3.5-5.1)
[2018-09-23] MEDS: MIDAZOLAM 100mg/100ml NS BAG 100 ML IV PRN (13:18)
[2018-09-23] MEDS: VASOPRESSIN 40 UNIT in IV DEXTROSE 5% 100ML 100 ML IV PRN (13:19)
[2018-09-23] MEDS: VANCOMYCIN PER PHARMACY MC PRN (17:08)
--- NOTE | 2018-09-23 17:10 | NUR ---
Pharmacy Vancomycin Dosing Note S:Consulted to monitor and dose vancomycin started 09/22/18. O:ISABELL BUCIO is a 63 year old F with Empiric . Height: 5 feet, 0 inches Weight: 69.699193 kg [place] Body Weight: 45.50 Adjusted Body Weight: 55.06 Dosing Weight: Actual Other Antibiotics: ZOSYN LABS: Last BUN: 55 Last Creatinine: 2.3 Creatinine Clearance: starting CRRT mL/min Last WBC: 1.9 Last Procalcitonin: 7.29 Tmax (past 24 hours): 97.7 Microbiology: I/O: Drug Levels: Last level: on at Last dose given 09/22/18 at 2100 Vancomycin Dosing: Loading Dose: 1750 mg x1 Dosing Weight: Actual Target Trough: 15-20 A: Based on: RENAL FUNCTION (ON CRRT), BOLUS VANCOMYCIN GIVEN LAST NIGHT, P: 1. START Vancomycin 1000 mg IV q24h 2. Follow up Trough level on 09/24/18 at 2030 3. Pharmacy will continue to monitor, follow and adjust therapy as needed. DIANDRA ALLEN [facility], 09/23/18 0314
[2018-09-23 18:49] LABS: CALCIUM 7.5 mg/dL (8.5-10.1); CREATININE 1.1 mg/dL (0.6-1.0); MAGNESIUM 2.8 mg/dL (1.8-2.4); PHOSPHORUS 3.3 mg/dL (2.6-4.7); POTASSIUM 3.3 mmol/L (3.5-5.1)
[2018-09-23 18:53] LABS: ISTAT BE VENOUS 5 mmol/L (0-3); ISTAT HCO3 VEN 29 mmol/L (24-28); ISTAT PCO2 VEN 47 mmHg (41-51); ISTAT PO2 VEN 36 mmHg (20-40); ISTAT TCO2 VEN 31 mmol/L (21-32)
[2018-09-23 18:54] LABS: FIO2 VENOUS ISTAT 21; ISTAT SAT O2 VEN 69 %
[2018-09-23] MEDS: [UNRECOGNIZED DRUG - OTHER] IV SCH ×2 (20:06→23:49)
[2018-09-23] MEDS: CALCIUM CHLORIDE IV SCH ×4 (20:06→23:50)
[2018-09-23] MEDS: [UNRECOGNIZED DRUG - OTHER] IV SCH ×2 (20:07→23:50)
[2018-09-23] MEDS: VANCOMYCIN 1 GM in IV NORMAL SALINE 250ML 250 ML IV SCH (21:13)
[2018-09-23] MEDS ORDERED: iron PO (22:35)
[2018-09-23] MEDS ORDERED: HALO10TA PO (22:35)
[2018-09-24] VITALS (30 sets, daily range): BP systolic 67–174; BP diastolic 36–86
[2018-09-24] MEDS: PIPERACILLIN/TAZOBACTAM 3.375 GM in IV NORMAL SALINE 50ML 50 ML IV SCH ×4 (00:13→19:22)
[2018-09-24 00:39] LABS: CALCIUM 7.8 mg/dL (8.5-10.1); GFR 55.8; PHOSPHORUS 2.9 mg/dL (2.6-4.7); POTASSIUM 3.7 mmol/L (3.5-5.1)
[2018-09-24] MEDS: MIDAZOLAM 100mg/100ml NS BAG 100 ML IV PRN ×2 (03:43→20:40)
[2018-09-24] MEDS: SODIUM BICARBONATE VIAL 150 MEQ in IV STERILE WATER 1,000 ML IV SCH ×4 (04:33→12:20)
[2018-09-24] MEDS: CALCIUM CHLORIDE IV SCH ×6 (04:34→14:34)
[2018-09-24] MEDS: MAGNESIUM SULFATE IV SCH ×6 (04:34→14:34)
[2018-09-24] MEDS: POTASSIUM CHLORIDE IV SCH ×6 (04:34→14:34)
[2018-09-24] MEDS: [UNRECOGNIZED DRUG - OTHER] IV SCH ×3 (04:34→14:34)
[2018-09-24] MEDS: [UNRECOGNIZED DRUG - OTHER] IV SCH ×3 (04:34→14:32)
[2018-09-24] MEDS: PANTOPRAZOLE SODIUM IV DRIP 80 MG in IV NORMAL SALINE 100ML 100 ML IV SCH ×2 (05:46→09:15)
[2018-09-24 06:41] LABS: CALCIUM 7.9 mg/dL (8.5-10.1); CREATININE 1.1 mg/dL (0.6-1.0); MAGNESIUM 2.9 mg/dL (1.8-2.4); PHOSPHORUS 2.7 mg/dL (2.6-4.7); POTASSIUM 3.9 mmol/L (3.5-5.1)
[2018-09-24 06:57] LABS: HEMATOCRIT 29.8 % (36.0-47.0); HEMOGLOBIN 10.2 g/dL (12.0-15.5); RED BLOOD COUNT 3.36 x10^6/uL (3.50-5.40); RED CELL DISTRIBUTION WIDTH 17.1 % (11.5-14.5); WHITE BLOOD COUNT 14.6 x10^3/uL (4.0-11.0)
[2018-09-24] MEDS: IPRATRPIUM/ALBUTEROL 0.5/2.5MG 3 ML NEBU. NEB SCH ×4 (07:55→20:01)
--- NOTE | 2018-09-24 08:07 | PDOC ---
PROGRESS NOTES Subjective Subjective Patient sedated, on vent. Objective Objective Vital Signs Date Time Temp Pulse Resp B/P (MAP) Pulse Ox O2 Delivery O2 Flow Rate FiO2 09/24/18 06:00 86 18 119/61 (80) 100 Ventilator 09/24/18 04:00 98.2 98.2 Intake and Output 09/24/18 07:00 Intake Total 900 ml Output Total 1394 ml Balance -494 ml Intake Oral 0 ml IV Total 900 ml Output Urine Total 255 ml Gastric Drainage Total 25 ml Other 1114 ml Physical Exam Abdomen: Normal bowel sounds, Soft, No tenderness Heart: Regular rate Extremities: No edema General: No acute distress (resting quietly on ventilator) Lungs: Clear to auscultation (anteriorly) Plan Plan of Care 1. Metabolic acidosis with acute renal failure - much improved on CRRT. Continue tx per Renal. 2. acute respiratory failure with possible pneumonia - stable on ventilator. Continue tx per Pulmonary. 3. GI bleed - Hgb decreased since yesterday but no evidence of acute bleeding at this time. GI had planned EGD today but suspect this will be on hold due to her thrombocytopenia. Continue Protonix and follow lab. 4. schizophrenia with BMD - resume home medications when able to take po again. Comment Review of Relevant I have reviewed the following items michelle (where applicable) has been applied. Labs Laboratory Tests Test 09/22/18 17:10 09/22/18 17:15 09/22/18 17:17 09/22/18 17:20 White Blood Count 1.9 x10^3/uL (4.0-11.0) Red Blood Count 2.66 x10^6/uL (3.50-5.40) Hemoglobin 7.8 g/dL (12.0-15.5) Hematocrit 25.6 % (36.0-47.0) Mean Corpuscular Volume 96 fL (79-100) Mean Corpuscular Hemoglobin 29 pg (25-35) Mean Corpuscular Hemoglobin Concent 31 g/dL (31-37) Red Cell Distribution Width 20.7 % (11.5-14.5) Platelet Count 301 x10^3/uL (140-400) Neutrophils (%) (Auto) 31 % (31-73) Lymphocytes (%) (Auto) 66 % (24-48) Monocytes (%) (Auto) 2 % (0-9) Eosinophils (%) (Auto) 1 % (0-3) Basophils (%) (Auto) 0 % (0-3) Neutrophils # (Auto) 0.6 x10^3uL (1.8-7.7) Lymphocytes # (Auto) 1.3 x10^3/uL (1.0-4.8) Monocytes # (Auto) 0.0 x10^3/uL (0.0-1.1) Eosinophils # (Auto) 0.0 x10^3/uL (0.0-0.7) Basophils # (Auto) 0.0 x10^3/uL (0.0-0.2) Segmented Neutrophils % 26 % (35-66) Band Neutrophils % 1 % (0-9) Lymphocytes % 72 % (24-48) Eosinophils % 1 % (0-5) Platelet Estimate Adequate (ADEQUATE) Anisocytosis Mod Prothrombin Time 18.5 SEC (11.7-14.0) Prothromb Time International Ratio 1.6 (0.8-1.1) Activated Partial Thromboplast Time 31 SEC (24-38) Sodium Level 149 mmol/L (136-145) Potassium Level 6.2 mmol/L (3.5-5.1) Chloride Level 121 mmol/L (98-107) Carbon Dioxide Level 7 mmol/L (21-32) Anion Gap 21 (6-14) 16 mmol/L (6-14) Blood Urea Nitrogen 55 mg/dL (7-20) Creatinine 2.3 mg/dL (0.6-1.0) Estimated GFR (Cockcroft-Gault) 21.3 BUN/Creatinine Ratio 24 (6-20) Glucose Level 112 mg/dL (70-99) 103 mg/dL (70-99) Lactic Acid Level 4.1 mmol/L (0.4-2.0) Calcium Level 7.7 mg/dL (8.5-10.1) Phosphorus Level 7.5 mg/dL (2.6-4.7) Magnesium Level 2.1 mg/dL (1.8-2.4) Total Bilirubin 0.3 mg/dL (0.2-1.0) Aspartate Amino Transf (AST/SGOT) 28 U/L (15-37) Alanine Aminotransferase (ALT/SGPT) 26 U/L (14-59) Alkaline Phosphatase 84 U/L (46-116) Creatine Kinase 150 U/L (26-192) Troponin I Quantitative < 0.017 ng/mL (0.000-0.055) QH-Hwf-C-Type Natriuretic Peptide 486 pg/mL (0-124) Total Protein 5.1 g/dL (6.4-8.2) Albumin 2.4 g/dL (3.4-5.0) Albumin/Globulin Ratio 0.9 (1.0-1.7) Lipase 221 U/L (73-393) Salicylates Level 4.7 mg/dL (2.8-20.0) Salicylate Last Dose Date Unk Salicylate Last Dose Time Unk Ethyl Alcohol Level < 10 mg/dL (0-10) Hepatitis B Surface Antigen Nonreactive (Nonreactive) Bedside Troponin I 0.00 ng/ml (<0.08) Bedside Hemoglobin 7.5 g/dL (12-15) Bedside Hematocrit 22 % (36-40) Bedside Sodium 147 mmol/L (135-145) Bedside Potassium 5.9 mmol/L (3.5-5.0) Bedside Chloride 129 mmol/L (98-110) Bedside Total CO2 8 mmol/L (23-32) Bedside Blood Urea Nitrogen 56 mg/dL (8-26) Bedside Creatinine 2.2 mg/dL (0.5-1.4) Bedside Ionized Calcium (Uymi) 1.25 mmol/L (1.13-1.32) O2 Saturation 97 % (92-99) Arterial Blood pH 7.01 (7.35-7.45) Arterial Blood pCO2 at Patient Temp 18 mmHg (35-46) Arterial Blood pO2 at Patient Temp 143 mmHg (65-108) Arterial Blood HCO3 4 mmol/L (21-28) Arterial Blood Base Excess -25 mmol/L (-3-3) FiO2 21 Test 09/22/18 17:45 09/22/18 17:50 09/22/18 21:23 09/22/18 22:30 Stool Occult Blood Positive (NEG) Urine Collection Type Unknown Urine Color Yellow Urine Clarity Clear Urine pH 5.5 Urine Specific [place] 1.010 Urine Protein 30 mg/dL (NEG-TRACE) Urine Glucose (UA) Negative mg/dL (NEG) Urine Ketones (Stick) Trace mg/dL (NEG) Urine Blood Negative (NEG) Urine Nitrite Negative (NEG) Urine Bilirubin Negative (NEG) Urine Urobilinogen Dipstick 1.0 mg/dL (0.2 mg/dL) Urine Leukocyte Esterase Trace (NEG) Urine RBC 0 /HPF (0-2) Urine WBC Occ /HPF (0-4) Urine Squamous Epithelial Cells Few /LPF Urine Bacteria 0 /HPF (0-FEW) Urine Opiates Screen Neg (NEG) Urine Methadone Screen Neg (NEG) Urine Barbiturates Neg (NEG) Urine Phencyclidine Screen Neg (NEG) Urine Amphetamine/Methamphetamine Neg (NEG) Urine Benzodiazepines Screen Pos (NEG) Urine Cocaine Screen Neg (NEG) Urine Cannabinoids Screen Neg (NEG) Urine Ethyl Alcohol Neg (NEG) O2 Saturation 100 % (92-99) Arterial Blood pH 7.05 (7.35-7.45) Arterial Blood pH (Temp corrected) 7.07 Arterial Blood pCO2 at Patient Temp 25 mmHg (35-46) Arterial Blood pCO2 (Temp correct) 23 mmHg Arterial Blood pO2 at Patient Temp 411 mmHg (65-108) Arterial Blood pO2 (Temp corrected) 402 mmHg Arterial Blood HCO3 7 mmol/L (21-28) Arterial Blood Base Excess -22 mmol/L (-3-3) FiO2 100 White Blood Count 13.0 x10^3/uL (4.0-11.0) Red Blood Count 4.83 x10^6/uL (3.50-5.40) Hemoglobin 14.5 g/dL (12.0-15.5) Hematocrit 44.1 % (36.0-47.0) Mean Corpuscular Volume 91 fL (79-100) Mean Corpuscular Hemoglobin 30 pg (25-35) Mean Corpuscular Hemoglobin Concent 33 g/dL (31-37) Red Cell Distribution Width 16.8 % (11.5-14.5) Platelet Count 141 x10^3/uL (140-400) Lactic Acid Level 1.8 mmol/L (0.4-2.0) Test 09/23/18 00:15 09/23/18 06:00 09/23/18 08:00 09/23/18 12:00 Nasal Screen MRSA (PCR) Positive (Negative) White Blood Count 15.8 x10^3/uL (4.0-11.0) Red Blood Count 4.62 x10^6/uL (3.50-5.40) Hemoglobin 13.7 g/dL (12.0-15.5) Hematocrit 40.9 % (36.0-47.0) Mean Corpuscular Volume 89 fL (79-100) Mean Corpuscular Hemoglobin 30 pg (25-35) Mean Corpuscular Hemoglobin Concent 33 g/dL (31-37) Red Cell Distribution Width 16.6 % (11.5-14.5) Platelet Count 98 x10^3/uL (140-400) Prothrombin Time 19.4 SEC (11.7-14.0) Prothromb Time International Ratio 1.7 (0.8-1.1) Sodium Level 146 mmol/L (136-145) 145 mmol/L (136-145) Potassium Level 3.7 mmol/L (3.5-5.1) 3.5 mmol/L (3.5-5.1) Chloride Level 108 mmol/L (98-107) 105 mmol/L (98-107) Carbon Dioxide Level 18 mmol/L (21-32) 25 mmol/L (21-32) Anion Gap 20 (6-14) 15 (6-14) Blood Urea Nitrogen 38 mg/dL (7-20) 27 mg/dL (7-20) Creatinine 1.4 mg/dL (0.6-1.0) 1.2 mg/dL (0.6-1.0) Estimated GFR (Cockcroft-Gault) 37.9 45.2 BUN/Creatinine Ratio 27 (6-20) Glucose Level 157 mg/dL (70-99) 153 mg/dL (70-99) Calcium Level 6.8 mg/dL (8.5-10.1) 7.6 mg/dL (8.5-10.1) Phosphorus Level 3.7 mg/dL (2.6-4.7) 3.5 mg/dL (2.6-4.7) Magnesium Level 2.2 mg/dL (1.8-2.4) 2.4 mg/dL (1.8-2.4) Total Bilirubin 1.7 mg/dL (0.2-1.0) Aspartate Amino Transf (AST/SGOT) 80 U/L (15-37) Alanine Aminotransferase (ALT/SGPT) 39 U/L (14-59) Alkaline Phosphatase 86 U/L (46-116) Total Protein 5.2 g/dL (6.4-8.2) Albumin 2.6 g/dL (3.4-5.0) Albumin/Globulin Ratio 1.0 (1.0-1.7) Procalcitonin 7.29 ng/mL (0.00-0.10) O2 Saturation 99 % (92-99) Arterial Blood pH 7.43 (7.35-7.45) Arterial Blood pCO2 at Patient Temp 26 mmHg (35-46) Arterial Blood pO2 at Patient Temp 188 mmHg (65-108) Arterial Blood HCO3 17 mmol/L (21-28) Arterial Blood Base Excess -6 mmol/L (-3-3) FiO2 50 Acetone Level Sm pos (NEG) Test 09/23/18 18:15 09/24/18 00:20 09/24/18 06:00 Bedside Venous pH 7.40 (7.32-7.42) Bedside Venous pCO2 47 mmHg (41-51) Bedside Venous pO2 36 mmHg (20-40) Venous Blood HCO3 29 mmol/L (24-28) POC Venous O2 Saturation (Yumi) 69 % Bedside FiO2 21 Sodium Level 146 mmol/L (136-145) 144 mmol/L (136-145) 141 mmol/L (136-145) Potassium Level 3.3 mmol/L (3.5-5.1) 3.7 mmol/L (3.5-5.1) 3.9 mmol/L (3.5-5.1) Chloride Level 103 mmol/L (98-107) 102 mmol/L (98-107) 100 mmol/L (98-107) Carbon Dioxide Level 30 mmol/L (21-32) 32 mmol/L (21-32) 30 mmol/L (21-32) Anion Gap 13 (6-14) 10 (6-14) 11 (6-14) Blood Urea Nitrogen 23 mg/dL (7-20) 20 mg/dL (7-20) 19 mg/dL (7-20) Creatinine 1.1 mg/dL (0.6-1.0) 1.0 mg/dL (0.6-1.0) 1.1 mg/dL (0.6-1.0) Estimated GFR (Cockcroft-Gault) 50.0 55.8 50.0 Glucose Level 165 mg/dL (70-99) 138 mg/dL (70-99) 115 mg/dL (70-99) Calcium Level 7.5 mg/dL (8.5-10.1) 7.8 mg/dL (8.5-10.1) 7.9 mg/dL (8.5-10.1) Phosphorus Level 3.3 mg/dL (2.6-4.7) 2.9 mg/dL (2.6-4.7) 2.7 mg/dL (2.6-4.7) Magnesium Level 2.8 mg/dL (1.8-2.4) 3.0 mg/dL (1.8-2.4) 2.9 mg/dL (1.8-2.4) White Blood Count 14.6 x10^3/uL (4.0-11.0) Red Blood Count 3.36 x10^6/uL (3.50-5.40) Hemoglobin 10.2 g/dL (12.0-15.5) Hematocrit 29.8 % (36.0-47.0) Mean Corpuscular Volume 89 fL (79-100) Mean Corpuscular Hemoglobin 30 pg (25-35) Mean Corpuscular Hemoglobin Concent 34 g/dL (31-37) Red Cell Distribution Width 17.1 % (11.5-14.5) Platelet Count 39 x10^3/uL (140-400) Laboratory Tests Test 09/23/18 08:00 09/23/18 12:00 09/23/18 18:15 09/24/18 00:20 O2 Saturation 99 % (92-99) Arterial Blood pH 7.43 (7.35-7.45) Arterial Blood pCO2 at Patient Temp 26 mmHg (35-46) Arterial Blood pO2 at Patient Temp 188 mmHg (65-108) Arterial Blood HCO3 17 mmol/L (21-28) Arterial Blood Base Excess -6 mmol/L (-3-3) FiO2 50 Sodium Level 145 mmol/L (136-145) 146 mmol/L (136-145) 144 mmol/L (136-145) Potassium Level 3.5 mmol/L (3.5-5.1) 3.3 mmol/L (3.5-5.1) 3.7 mmol/L (3.5-5.1) Chloride Level 105 mmol/L (98-107) 103 mmol/L (98-107) 102 mmol/L (98-107) Carbon Dioxide Level 25 mmol/L (21-32) 30 mmol/L (21-32) 32 mmol/L (21-32) Anion Gap 15 (6-14) 13 (6-14) 10 (6-14) Blood Urea Nitrogen 27 mg/dL (7-20) 23 mg/dL (7-20) 20 mg/dL (7-20) Creatinine 1.2 mg/dL (0.6-1.0) 1.1 mg/dL (0.6-1.0) 1.0 mg/dL (0.6-1.0) Estimated GFR (Cockcroft-Gault) 45.2 50.0 55.8 Glucose Level 153 mg/dL (70-99) 165 mg/dL (70-99) 138 mg/dL (70-99) Calcium Level 7.6 mg/dL (8.5-10.1) 7.5 mg/dL (8.5-10.1) 7.8 mg/dL (8.5-10.1) Phosphorus Level 3.5 mg/dL (2.6-4.7) 3.3 mg/dL (2.6-4.7) 2.9 mg/dL (2.6-4.7) Magnesium Level 2.4 mg/dL (1.8-2.4) 2.8 mg/dL (1.8-2.4) 3.0 mg/dL (1.8-2.4) Acetone Level Sm pos (NEG) Bedside Venous pH 7.40 (7.32-7.42) Bedside Venous pCO2 47 mmHg (41-51) Bedside Venous pO2 36 mmHg (20-40) Venous Blood HCO3 29 mmol/L (24-28) POC Venous O2 Saturation (Yumi) 69 % Bedside FiO2 21 Test // 06:00 White Blood Count 14.6 x10^3/uL (4.0-11.0) Red Blood Count 3.36 x10^6/uL (3.50-5.40) Hemoglobin 10.2 g/dL (12.0-15.5) Hematocrit 29.8 % (36.0-47.0) Mean Corpuscular Volume 89 fL (79-100) Mean Corpuscular Hemoglobin 30 pg (25-35) Mean Corpuscular Hemoglobin Concent 34 g/dL (31-37) Red Cell Distribution Width 17.1 % (11.5-14.5) Platelet Count 39 x10^3/uL (140-400) Sodium Level 141 mmol/L (136-145) Potassium Level 3.9 mmol/L (3.5-5.1) Chloride Level 100 mmol/L (98-107) Carbon Dioxide Level 30 mmol/L (21-32) Anion Gap 11 (6-14) Blood Urea Nitrogen 19 mg/dL (7-20) Creatinine 1.1 mg/dL (0.6-1.0) Estimated GFR (Cockcroft-Gault) 50.0 Glucose Level 115 mg/dL (70-99) Calcium Level 7.9 mg/dL (8.5-10.1) Phosphorus Level 2.7 mg/dL (2.6-4.7) Magnesium Level 2.9 mg/dL (1.8-2.4) Microbiology 09/22/18 Blood Culture - Preliminary, Resulted NO GROWTH AFTER 1 DAY Medications Current Medications Sodium Chloride 1,000 ml @ 1,000 mls/hr 1X ONCE IV Last administered on at 17:18; Start 09/22/18 at 17:15; Stop 09/22/18 at 18:14; Status DC Pantoprazole Sodium 80 mg/ Sodium Chloride 100 ml @ 10 mls/hr Q10H IV Last administered on 09/24/18at 05:46; Start 09/22/18 at 17:15 Pantoprazole Sodium (PROTONIX VIAL for IV PUSH) 80 mg 1X ONCE IVP Last administered on 09/22/18at 17:39; Start 09/22/18 at 17:15; Stop 09/22/18 at 17:17 ; Status DC Ceftriaxone Sodium (Rocephin) 1 gm 1X ONCE IVP ; Start 09/22/18 at 17:30; Stop 09/22/18 at 17:30; Status DC Sodium Chloride 1,000 ml @ 1,000 mls/hr 1X ONCE IV Last administered on at 17:27; Start 09/22/18 at 17:30; Stop 09/22/18 at 18:29; Status DC Vancomycin HCl (Vanco Per Pharmacy) 1 each PRN DAILY PRN MC SEE COMMENTS Last administered on 09/23/18at 17:08; Start 09/22/18 at 17:30 Piperacillin Sod/ Tazobactam Sod (Zosyn Per Pharmacy) 1 each PRN DAILY PRN MC SEE COMMENTS; Start 09/22/18 at 17:30 Piperacillin Sod/ Tazobactam Sod 3.375 gm/Sodium Chloride 50 ml @ 100 mls/hr 1X ONCE IV Last administered on 09/22/18at 18:04; Start 09/22/18 at 17:30; Stop 09/22/18 at 17:59; Status DC Vancomycin HCl 1.75 gm/Sodium Chloride 500 ml @ 250 mls/hr 1X ONCE IV Last administered on 09/22/18at 23:28; Start 09/22/18 at 17:30; Stop 09/22/18 at 19:29 ; Status DC Sodium Bicarbonate (Sodium Bicarb Adult 8.4% Syr) 50 meq 1X ONCE IV Last administered on 09/22/18at 18:03; Start 09/22/18 at 17:45; Stop 09/22/18 at 17:46 ; Status DC Norepinephrine Bitartrate 250 ml @ 0 mls/hr 1X ONCE IV Last administered on at 17:51; Start 09/22/18 at 17:45; Stop 09/22/18 at 17:46; Status DC Sodium Bicarbonate 150 meq/Sterile Water 1,150 ml @ 125 mls/hr 1X ONCE IV Last administered on 09/22/18at 18:30; Start 09/22/18 at 18:30; Stop 09/23/18 at 03:41; Status DC Piperacillin Sod/ Tazobactam Sod 3.375 gm/Sodium Chloride 50 ml @ 100 mls/hr Q6HRS IV Last administered on 09/24/18at 05:45; Start 09/23/18 at 00:00 Vasopressin 40 unit/Dextrose 102 ml @ 6 mls/hr CONT PRN IV SEE I/O RECORD Last administered on 09/23/18at 13:19; Start 09/22/18 at 18:45 Fentanyl Citrate (Fentanyl 2ml Vial) 50 mcg 1X ONCE IV ; Start 09/22/18 at 19: 00; Stop 09/22/18 at 19:01; Status DC Midazolam HCl 100 ml @ 5 mls/hr CONT PRN IV SEE I/O RECORD Last administered on 09/24/18at 03:43; Start 09/22/18 at 19:00 Lidocaine/Sodium Bicarbonate (Buffered Lidocaine 1%) 4 ml 1X ONCE INJ Last administered on 09/22/18at 19:15; Start 09/22/18 at 19:15; Stop 09/22/18 at 19:18 ; Status DC Heparin Sodium (Porcine) (Heparin Sodium) 2,500 unit 1X ONCE INT CAT Last administered on 09/22/18at 19:15; Start 09/22/18 at 19:15; Stop 09/22/18 at 19:18 ; Status DC Heparin Sodium (Porcine) (Heparin Sodium) 10,000 unit STK-MED ONCE .ROUTE ; Start 09/22/18 at 19:17; Stop 09/22/18 at 19:18; Status DC Sodium Bicarbonate 40 meq/Potassium Chloride 15 meq/ Magnesium Sulfate 5 meq/ Calcium Chloride 2.5 meq/ Bicarbonate Dialysis Soln w/ out KCl 5,050.5172 ml @ 1 ,000 mls/hr Q5H4M IV Last administered on 09/23/18at 05:02; Start 09/22/18 at 22 :00; Stop 09/23/18 at 08:43; Status DC Sodium Bicarbonate 40 meq/Potassium Chloride 15 meq/ Magnesium Sulfate 5 meq/ Calcium Chloride 2.5 meq/ Bicarbonate Dialysis Soln w/ out KCl 5,050.5172 ml @ 1 ,000 mls/hr Q5H4M IV Last administered on 09/23/18at 05:02; Start 09/22/18 at 22 :00; Stop 09/23/18 at 08:43; Status DC Sodium Bicarbonate 150 meq/Sterile Water 1,150 ml @ 300 mls/hr Q3H50M IV Last administered on 09/24/18at 05:45; Start 09/22/18 at 22:00 Etomidate (Amidate) 20 mg STK-MED ONCE IV ; Start 09/22/18 at 20:36; Stop at 20:37; Status DC Rocuronium Allen (Zemuron) 50 mg STK-MED ONCE .ROUTE ; Start 09/22/18 at 20:36 ; Stop 09/22/18 at 20:37; Status DC Norepinephrine Bitartrate 250 ml @ 1.875 mls/ hr CONT PRN IV SEE I/O RECORD Last administered on 09/23/18at 19:53; Start 09/22/18 at 23:30 Fentanyl Citrate (Fentanyl 2ml Vial) 50 mcg PRN Q1HR PRN IV PAIN Last administered on 09/23/18at 23:48; Start 09/22/18 at 23:30 Epinephrine HCl 4 mg/Sodium Chloride 254 ml @ 26.44 mls/ hr CONT PRN IV SEE I/ O RECORD; Start 09/23/18 at 02:15 Albuterol/ Ipratropium (Duoneb) 3 ml RTQID NEB Last administered on 09/23/18at 19:47; Start 09/23/18 at 08:00 Sodium Bicarbonate 40 meq/Potassium Chloride 15 meq/ Magnesium Sulfate 5 meq/ Calcium Chloride 17.5 meq/ Bicarbonate Dialysis Soln w/ out KCl 5,061.2315 ml @ 1,000 mls/hr Q5H4M IV Last administered on 09/23/18at 10:13; Start 09/23/18 at 10:00; Stop 09/23/18 at 10:32; Status DC Sodium Bicarbonate 40 meq/Potassium Chloride 15 meq/ Magnesium Sulfate 5 meq/ Calcium Chloride 17.5 meq/ Bicarbonate Dialysis Soln w/ out KCl 5,061.2315 ml @ 1,000 mls/hr Q5H4M IV Last administered on 09/23/18at 10:12; Start 09/23/18 at 10:00; Stop 09/23/18 at 10:33; Status DC Sodium Bicarbonate 40 meq/Potassium Chloride 15 meq/ Magnesium Sulfate 5 meq/ Calcium Chloride 5 meq/ Bicarbonate Dialysis Soln w/ out KCl 5,052.3029 ml @ 1, 000 mls/hr Q5H4M IV Last administered on 09/23/18at 15:40; Start 09/23/18 at 11: 00; Stop 09/23/18 at 19:28; Status DC Sodium Bicarbonate 40 meq/Potassium Chloride 15 meq/ Magnesium Sulfate 5 meq/ Calcium Chloride 5 meq/ Bicarbonate Dialysis Soln w/ out KCl 5,052.3029 ml @ 1, 000 mls/hr Q5H4M IV Last administered on 09/23/18at 15:39; Start 09/23/18 at 10: 45; Stop 09/23/18 at 19:28; Status DC Vancomycin HCl 1 gm/Sodium Chloride 250 ml @ 250 mls/hr Q24H IV Last administered on 09/23/18at 21:13; Start 09/23/18 at 21:00 Vancomycin HCl (Vancomycin Trough Level) 1 each 1X ONCE MC ; Start 09/24/18 at 20:30; Stop 09/24/18 at 20:31 Potassium Chloride 15 meq/ Magnesium Sulfate 5 meq/Calcium Chloride 5 meq/ Bicarbonate Dialysis Soln w/ out KCl 5,012.3029 ml @ 1,000 mls/hr Q5H1M IV Last administered on 09/23/18at 23:50; Start 09/23/18 at 20:30; Stop 09/24/18 at 04:06; Status DC Potassium Chloride 35 meq/ Magnesium Sulfate 5 meq/Calcium Chloride 5 meq/ Bicarbonate Dialysis Soln w/ out KCl 5,022.3029 ml @ 1,000 mls/hr Q5H2M IV Last administered on 09/23/18at 23:49; Start 09/23/18 at 20:30; Stop 09/24/18 at 04:06; Status DC Fentanyl Citrate 30 ml @ 0 mls/hr CONT PRN IV SEE PROTOCOL Last administered on 09/23/18at 23:51; Start 09/23/18 at 22:30 Chlorhexidine Gluconate (Peridex) 15 ml BID MM ; Start 09/24/18 at 09:00 Potassium Chloride 15 meq/ Magnesium Sulfate 2.5 meq/Calcium Chloride 5 meq/ Bicarbonate Dialysis Soln w/ out KCl 5,011.6871 ml @ 1,000 mls/hr Q5H1M IV Last administered on 09/24/18at 04:34; Start 09/24/18 at 04:30 Potassium Chloride 35 meq/ Magnesium Sulfate 2.5 meq/Calcium Chloride 5 meq/ Bicarbonate Dialysis Soln w/ out KCl 5,021.6871 ml @ 1,000 mls/hr Q5H2M IV Last administered on 09/24/18at 04:34; Start 09/24/18 at 04:30 Active Scripts Active Reported [iron] 325 Mg PO Haloperidol 10 Mg Tablet 10 Mg PO QHS Ventolin Hfa Inhaler (Albuterol Sulfate) 18 Gm Hfa.aer.ad 2 Puff INH Q4HRS PRN Pristiq Er (Desvenlafaxine Succinate) 50 Mg Tab.er.24h 1 Tab PO DAILY Amitriptyline Hcl 25 Mg Tablet 1 Tab PO QHS Diazepam 5 Mg Tablet 5 Mg PO TID Gabapentin (Gabapentin) 300 Mg Capsule 300 Mg PO TID Vitals/I & O Vital Sign - Last 24 Hours 09/23/18 09/23/18 09/23/18 09/23/18 08:00 08:00 08:00 08:23 Temp 97.1 97.1 Pulse 78 Resp 24 B/P (MAP) 158/86 (110) Pulse Ox 99 100 O2 Delivery Mechanical Ventilator Ventilator Ventilator 09/23/18 09/23/18 09/23/18 09/23/18 09:00 09:56 10:00 11:00 Temp 97.1 97.0 97.1 97.0 Pulse 78 78 74 Resp 26 26 B/P (MAP) 138/76 (96) 138/76 (96) 141/74 (96) Pulse Ox 100 100 100 99 O2 Delivery Ventilator Ventilator Ventilator Ventilator 09/23/18 09/23/18 09/23/18 09/23/18 12:00 12:00 12:00 12:27 Temp 97.2 97.2 Pulse 70 Resp 25 B/P (MAP) 126/63 (84) Pulse Ox 100 100 O2 Delivery Mechanical Ventilator Ventilator Ventilator 09/23/18 09/23/18 09/23/18 09/23/18 13:27 14:00 15:00 16:00 Pulse 69 66 79 Resp 25 25 26 B/P (MAP) 132/67 (88) 132/67 (88) 126/79 (95) Pulse Ox 100 100 100 O2 Delivery Ventilator Ventilator Ventilator 09/23/18 09/23/18 09/23/18 09/23/18 16:00 16:00 16:20 17:00 Temp 97.1 97.1 97.1 97.1 Pulse 76 78 Resp 22 25 B/P (MAP) 127/70 (89) 133/71 (91) Pulse Ox 99 100 99 O2 Delivery Ventilator Mechanical Ventilator Ventilator Ventilator 09/23/18 09/23/18 09/23/18 09/23/18 18:00 18:01 19:00 19:49 Pulse 80 86 Resp 25 25 B/P (MAP) 151/80 (103) 166/62 (96) Pulse Ox 100 98 100 100 O2 Delivery Ventilator Ventilator Ventilator Ventilator 09/23/18 09/23/18 09/23/18 09/23/18 20:00 20:00 20:30 21:00 Temp 97.8 97.8 Pulse 85 83 Resp 22 25 B/P (MAP) 155/68 (97) 119/59 (79) Pulse Ox 99 100 100 O2 Delivery Mechanical Ventilator Ventilator Ventilator Ventilator 09/23/18 09/23/18 09/23/18 09/23/18 21:00 21:14 22:00 23:00 Pulse 90 84 84 Resp 22 23 B/P (MAP) 121/63 (82) 128/85 (99) 155/74 (101) Pulse Ox 100 100 100 O2 Delivery Ventilator Ventilator Ventilator Ventilator 09/23/18 09/24/18 09/24/18 09/24/18 23:29 00:00 00:00 01:00 Temp 97.9 97.9 Pulse 86 86 Resp 22 18 B/P (MAP) 136/76 (96) 141/70 (93) Pulse Ox 100 99 100 O2 Delivery Ventilator Mechanical Ventilator Ventilator Ventilator 09/24/18 09/24/18 09/24/18 09/24/18 02:00 02:30 03:00 04:00 Temp 97.7 97.7 Pulse 84 86 Resp 20 18 B/P (MAP) 119/58 (78) 129/68 (88) Pulse Ox 100 100 100 O2 Delivery Ventilator Ventilator Ventilator Mechanical Ventilator 09/24/18 09/24/18 09/24/18 09/24/18 04:00 04:15 05:00 05:30 Temp 98.2 98.2 Pulse 80 82 Resp 20 18 B/P (MAP) 87/45 (59) 112/43 (66) 124/64 (84) Pulse Ox 99 100 100 O2 Delivery Ventilator Ventilator Ventilator 09/24/18 06:00 Pulse 86 Resp 18 B/P (MAP) 119/61 (80) Pulse Ox 100 O2 Delivery Ventilator Intake and Output 09/23/18 09/23/18 09/24/18 15:00 23:00 07:00 Intake Total 352 ml 390 ml 158 ml Output Total 70 ml 556 ml 768 ml Balance 282 ml -166 ml -610 ml MILY COOK MD Sep 24, 2018 08:07
[2018-09-24] MEDS: CHLORHEXIDINE 0.12% 15 ML MOUTHWASH. MM SCH ×2 (09:00→21:41)
--- NOTE | 2018-09-24 09:38 | NUR ---
IP: Pt is mrsa scree + requiring contact precautions.
[2018-09-24] MEDS: TPN PER PHARMACY MC PRN ×3 (09:47→11:31)
[2018-09-24 10:09] LABS: BASE EXCESS ABG -1 mmol/L (-3-3); HCO3 ABG 24 mmol/L (21-28); PCO2 ABG 39 mmHg (35-46); PO2 ABG 88 mmHg (65-108); SAT O2 ABG 96 % (92-99)
[2018-09-24 10:34] LABS: FIO2 ABG 35
--- NOTE | 2018-09-24 11:03 | NUR ---
Pharmacy TPN Dosing Note S: ISABELL BUCIO is a 63 year old F Currently receiving Central Continuous TPN started 09/24/18 B:Pertinent PMH: Critical illness, suspected GIB Height: 5 feet, 0 inches Weight: 73.411241 kg Current diet: npo LABS: Sodium: 141 Potassium: 3.9 Chloride: 100 Calcium: 7.9 Corrected Calcium: 9.02 Magnesium: 2.9 CO2: 30 SCr: 1.1 Glucose: 115 Albumin: 2.6 AST: 80 ALT: 39 TPN FORMULA: TPN TYPE: Central Continuous AMINO ACIDS: 60 gm DEXTROSE: 195 gm LIPIDS: 20 gm SODIUM CHLORIDE: mEq SODIUM ACETATE: 45 mEq SODIUM PHOSPHATE: mmol POTASSIUM CHLORIDE: mEq POTASSIUM ACETATE: 25 mEq POTASSIUM PHOSPHATE: 13.6 mmol MAGNESIUM: 10 mEq CALCIUM: 10 mEq INSULIN: units MULTIPLE VITAMIN: 10 ml TRACE ELEMENTS: MTE5 1ML ml(s) TPN PLAN: Pt presented with severe acidosis of unknown origin. Was on CRRT, lytes now improved but not much urine output. Suspected GI bleed. Will start standard TPN with half quantities of K and Na as acetate salts. Trig 93, appropriate for lipid component. Await dietary rec tomorrow. BMP, phos, mag in AM. R: Begin TPN ABOVE. Will monitor electrolytes, glucose, and tolerance to TPN. JOSE FRANCISCO HERNANDEZ RPH, 09/24/18 1103 Addendum: 09/24/18 at 1133 by JOSE FRANCISCO HERNANDEZ RPH PHA increased amino acids to 90 grams per dietary rec
--- NOTE | 2018-09-24 11:41 | PDOC ---
PULMONARY PROGRESS NOTES Subjective remains intubated/ sedated/ on low dose levo, vasopressin Vitals Vital Signs Date Time Temp Pulse Resp B/P (MAP) Pulse Ox O2 Delivery O2 Flow Rate FiO2 09/24/18 10:18 100 Ventilator 09/24/18 09:00 81 18 124/56 (78) 09/24/18 08:00 97.9 97.9 Lungs: Other (decrease bs) Cardiovascular: S1, S2 Abdomen: Soft, Non-tender Extremities: Other (1+edema) Labs Laboratory Tests Test 09/22/18 17:10 09/22/18 17:15 09/22/18 17:17 09/22/18 17:20 White Blood Count 1.9 x10^3/uL (4.0-11.0) Red Blood Count 2.66 x10^6/uL (3.50-5.40) Hemoglobin 7.8 g/dL (12.0-15.5) Hematocrit 25.6 % (36.0-47.0) Mean Corpuscular Volume 96 fL (79-100) Mean Corpuscular Hemoglobin 29 pg (25-35) Mean Corpuscular Hemoglobin Concent 31 g/dL (31-37) Red Cell Distribution Width 20.7 % (11.5-14.5) Platelet Count 301 x10^3/uL (140-400) Neutrophils (%) (Auto) 31 % (31-73) Lymphocytes (%) (Auto) 66 % (24-48) Monocytes (%) (Auto) 2 % (0-9) Eosinophils (%) (Auto) 1 % (0-3) Basophils (%) (Auto) 0 % (0-3) Neutrophils # (Auto) 0.6 x10^3uL (1.8-7.7) Lymphocytes # (Auto) 1.3 x10^3/uL (1.0-4.8) Monocytes # (Auto) 0.0 x10^3/uL (0.0-1.1) Eosinophils # (Auto) 0.0 x10^3/uL (0.0-0.7) Basophils # (Auto) 0.0 x10^3/uL (0.0-0.2) Segmented Neutrophils % 26 % (35-66) Band Neutrophils % 1 % (0-9) Lymphocytes % 72 % (24-48) Eosinophils % 1 % (0-5) Platelet Estimate Adequate (ADEQUATE) Anisocytosis Mod Prothrombin Time 18.5 SEC (11.7-14.0) Prothromb Time International Ratio 1.6 (0.8-1.1) Activated Partial Thromboplast Time 31 SEC (24-38) Sodium Level 149 mmol/L (136-145) Potassium Level 6.2 mmol/L (3.5-5.1) Chloride Level 121 mmol/L (98-107) Carbon Dioxide Level 7 mmol/L (21-32) Anion Gap 21 (6-14) 16 mmol/L (6-14) Blood Urea Nitrogen 55 mg/dL (7-20) Creatinine 2.3 mg/dL (0.6-1.0) Estimated GFR (Cockcroft-Gault) 21.3 BUN/Creatinine Ratio 24 (6-20) Glucose Level 112 mg/dL (70-99) 103 mg/dL (70-99) Plasma/Serum Osmolality 322 mOsmol/kg (280-301) Lactic Acid Level 4.1 mmol/L (0.4-2.0) Calcium Level 7.7 mg/dL (8.5-10.1) Phosphorus Level 7.5 mg/dL (2.6-4.7) Magnesium Level 2.1 mg/dL (1.8-2.4) Total Bilirubin 0.3 mg/dL (0.2-1.0) Aspartate Amino Transf (AST/SGOT) 28 U/L (15-37) Alanine Aminotransferase (ALT/SGPT) 26 U/L (14-59) Alkaline Phosphatase 84 U/L (46-116) Creatine Kinase 150 U/L (26-192) Troponin I Quantitative < 0.017 ng/mL (0.000-0.055) HR-Szz-E-Type Natriuretic Peptide 486 pg/mL (0-124) Total Protein 5.1 g/dL (6.4-8.2) Albumin 2.4 g/dL (3.4-5.0) Albumin/Globulin Ratio 0.9 (1.0-1.7) Lipase 221 U/L (73-393) Salicylates Level 4.7 mg/dL (2.8-20.0) Salicylate Last Dose Date Unk Salicylate Last Dose Time Unk Ethyl Alcohol Level < 10 mg/dL (0-10) Hepatitis B Surface Antigen Nonreactive (Nonreactive) Bedside Troponin I 0.00 ng/ml (<0.08) Bedside Hemoglobin 7.5 g/dL (12-15) Bedside Hematocrit 22 % (36-40) Bedside Sodium 147 mmol/L (135-145) Bedside Potassium 5.9 mmol/L (3.5-5.0) Bedside Chloride 129 mmol/L (98-110) Bedside Total CO2 8 mmol/L (23-32) Bedside Blood Urea Nitrogen 56 mg/dL (8-26) Bedside Creatinine 2.2 mg/dL (0.5-1.4) Bedside Ionized Calcium (Yumi) 1.25 mmol/L (1.13-1.32) O2 Saturation 97 % (92-99) Arterial Blood pH 7.01 (7.35-7.45) Arterial Blood pCO2 at Patient Temp 18 mmHg (35-46) Arterial Blood pO2 at Patient Temp 143 mmHg (65-108) Arterial Blood HCO3 4 mmol/L (21-28) Arterial Blood Base Excess -25 mmol/L (-3-3) FiO2 21 Test 09/22/18 17:45 09/22/18 17:50 09/22/18 21:23 09/22/18 22:30 Stool Occult Blood Positive (NEG) Urine Collection Type Unknown Urine Color Yellow Urine Clarity Clear Urine pH 5.5 Urine Specific [place] 1.010 Urine Protein 30 mg/dL (NEG-TRACE) Urine Glucose (UA) Negative mg/dL (NEG) Urine Ketones (Stick) Trace mg/dL (NEG) Urine Blood Negative (NEG) Urine Nitrite Negative (NEG) Urine Bilirubin Negative (NEG) Urine Urobilinogen Dipstick 1.0 mg/dL (0.2 mg/dL) Urine Leukocyte Esterase Trace (NEG) Urine RBC 0 /HPF (0-2) Urine WBC Occ /HPF (0-4) Urine Squamous Epithelial Cells Few /LPF Urine Bacteria 0 /HPF (0-FEW) Urine Opiates Screen Neg (NEG) Urine Methadone Screen Neg (NEG) Urine Barbiturates Neg (NEG) Urine Phencyclidine Screen Neg (NEG) Urine Amphetamine/Methamphetamine Neg (NEG) Urine Benzodiazepines Screen Pos (NEG) Urine Cocaine Screen Neg (NEG) Urine Cannabinoids Screen Neg (NEG) Urine Ethyl Alcohol Neg (NEG) O2 Saturation 100 % (92-99) Arterial Blood pH 7.05 (7.35-7.45) Arterial Blood pH (Temp corrected) 7.07 Arterial Blood pCO2 at Patient Temp 25 mmHg (35-46) Arterial Blood pCO2 (Temp correct) 23 mmHg Arterial Blood pO2 at Patient Temp 411 mmHg (65-108) Arterial Blood pO2 (Temp corrected) 402 mmHg Arterial Blood HCO3 7 mmol/L (21-28) Arterial Blood Base Excess -22 mmol/L (-3-3) FiO2 100 White Blood Count 13.0 x10^3/uL (4.0-11.0) Red Blood Count 4.83 x10^6/uL (3.50-5.40) Hemoglobin 14.5 g/dL (12.0-15.5) Hematocrit 44.1 % (36.0-47.0) Mean Corpuscular Volume 91 fL (79-100) Mean Corpuscular Hemoglobin 30 pg (25-35) Mean Corpuscular Hemoglobin Concent 33 g/dL (31-37) Red Cell Distribution Width 16.8 % (11.5-14.5) Platelet Count 141 x10^3/uL (140-400) Lactic Acid Level 1.8 mmol/L (0.4-2.0) Test 09/23/18 00:15 09/23/18 06:00 09/23/18 08:00 09/23/18 12:00 Nasal Screen MRSA (PCR) Positive (Negative) White Blood Count 15.8 x10^3/uL (4.0-11.0) Red Blood Count 4.62 x10^6/uL (3.50-5.40) Hemoglobin 13.7 g/dL (12.0-15.5) Hematocrit 40.9 % (36.0-47.0) Mean Corpuscular Volume 89 fL (79-100) Mean Corpuscular Hemoglobin 30 pg (25-35) Mean Corpuscular Hemoglobin Concent 33 g/dL (31-37) Red Cell Distribution Width 16.6 % (11.5-14.5) Platelet Count 98 x10^3/uL (140-400) Prothrombin Time 19.4 SEC (11.7-14.0) Prothromb Time International Ratio 1.7 (0.8-1.1) Sodium Level 146 mmol/L (136-145) 145 mmol/L (136-145) Potassium Level 3.7 mmol/L (3.5-5.1) 3.5 mmol/L (3.5-5.1) Chloride Level 108 mmol/L (98-107) 105 mmol/L (98-107) Carbon Dioxide Level 18 mmol/L (21-32) 25 mmol/L (21-32) Anion Gap 20 (6-14) 15 (6-14) Blood Urea Nitrogen 38 mg/dL (7-20) 27 mg/dL (7-20) Creatinine 1.4 mg/dL (0.6-1.0) 1.2 mg/dL (0.6-1.0) Estimated GFR (Cockcroft-Gault) 37.9 45.2 BUN/Creatinine Ratio 27 (6-20) Glucose Level 157 mg/dL (70-99) 153 mg/dL (70-99) Calcium Level 6.8 mg/dL (8.5-10.1) 7.6 mg/dL (8.5-10.1) Phosphorus Level 3.7 mg/dL (2.6-4.7) 3.5 mg/dL (2.6-4.7) Magnesium Level 2.2 mg/dL (1.8-2.4) 2.4 mg/dL (1.8-2.4) Total Bilirubin 1.7 mg/dL (0.2-1.0) Aspartate Amino Transf (AST/SGOT) 80 U/L (15-37) Alanine Aminotransferase (ALT/SGPT) 39 U/L (14-59) Alkaline Phosphatase 86 U/L (46-116) Total Protein 5.2 g/dL (6.4-8.2) Albumin 2.6 g/dL (3.4-5.0) Albumin/Globulin Ratio 1.0 (1.0-1.7) Procalcitonin 7.29 ng/mL (0.00-0.10) O2 Saturation 99 % (92-99) Arterial Blood pH 7.43 (7.35-7.45) Arterial Blood pCO2 at Patient Temp 26 mmHg (35-46) Arterial Blood pO2 at Patient Temp 188 mmHg (65-108) Arterial Blood HCO3 17 mmol/L (21-28) Arterial Blood Base Excess -6 mmol/L (-3-3) FiO2 50 Acetone Level Sm pos (NEG) Test 09/23/18 18:15 09/24/18 00:20 09/24/18 06:00 09/24/18 08:00 Bedside Venous pH 7.40 (7.32-7.42) Bedside Venous pCO2 47 mmHg (41-51) Bedside Venous pO2 36 mmHg (20-40) Venous Blood HCO3 29 mmol/L (24-28) POC Venous O2 Saturation (Yumi) 69 % Bedside FiO2 21 Sodium Level 146 mmol/L (136-145) 144 mmol/L (136-145) 141 mmol/L (136-145) Potassium Level 3.3 mmol/L (3.5-5.1) 3.7 mmol/L (3.5-5.1) 3.9 mmol/L (3.5-5.1) Chloride Level 103 mmol/L (98-107) 102 mmol/L (98-107) 100 mmol/L (98-107) Carbon Dioxide Level 30 mmol/L (21-32) 32 mmol/L (21-32) 30 mmol/L (21-32) Anion Gap 13 (6-14) 10 (6-14) 11 (6-14) Blood Urea Nitrogen 23 mg/dL (7-20) 20 mg/dL (7-20) 19 mg/dL (7-20) Creatinine 1.1 mg/dL (0.6-1.0) 1.0 mg/dL (0.6-1.0) 1.1 mg/dL (0.6-1.0) Estimated GFR (Cockcroft-Gault) 50.0 55.8 50.0 Glucose Level 165 mg/dL (70-99) 138 mg/dL (70-99) 115 mg/dL (70-99) Calcium Level 7.5 mg/dL (8.5-10.1) 7.8 mg/dL (8.5-10.1) 7.9 mg/dL (8.5-10.1) Phosphorus Level 3.3 mg/dL (2.6-4.7) 2.9 mg/dL (2.6-4.7) 2.7 mg/dL (2.6-4.7) Magnesium Level 2.8 mg/dL (1.8-2.4) 3.0 mg/dL (1.8-2.4) 2.9 mg/dL (1.8-2.4) White Blood Count 14.6 x10^3/uL (4.0-11.0) Red Blood Count 3.36 x10^6/uL (3.50-5.40) Hemoglobin 10.2 g/dL (12.0-15.5) Hematocrit 29.8 % (36.0-47.0) Mean Corpuscular Volume 89 fL (79-100) Mean Corpuscular Hemoglobin 30 pg (25-35) Mean Corpuscular Hemoglobin Concent 34 g/dL (31-37) Red Cell Distribution Width 17.1 % (11.5-14.5) Platelet Count 39 x10^3/uL (140-400) Triglycerides Level 93 mg/dL (0-150) O2 Saturation 96 % (92-99) Arterial Blood pH 7.41 (7.35-7.45) Arterial Blood pCO2 at Patient Temp 39 mmHg (35-46) Arterial Blood pO2 at Patient Temp 88 mmHg (65-108) Arterial Blood HCO3 24 mmol/L (21-28) Arterial Blood Base Excess -1 mmol/L (-3-3) FiO2 35 Laboratory Tests Test 09/23/18 12:00 09/23/18 18:15 09/24/18 00:20 09/24/18 06:00 Sodium Level 145 mmol/L (136-145) 146 mmol/L (136-145) 144 mmol/L (136-145) 141 mmol/L (136-145) Potassium Level 3.5 mmol/L (3.5-5.1) 3.3 mmol/L (3.5-5.1) 3.7 mmol/L (3.5-5.1) 3.9 mmol/L (3.5-5.1) Chloride Level 105 mmol/L (98-107) 103 mmol/L (98-107) 102 mmol/L (98-107) 100 mmol/L (98-107) Carbon Dioxide Level 25 mmol/L (21-32) 30 mmol/L (21-32) 32 mmol/L (21-32) 30 mmol/L (21-32) Anion Gap 15 (6-14) 13 (6-14) 10 (6-14) 11 (6-14) Blood Urea Nitrogen 27 mg/dL (7-20) 23 mg/dL (7-20) 20 mg/dL (7-20) 19 mg/dL (7-20) Creatinine 1.2 mg/dL (0.6-1.0) 1.1 mg/dL (0.6-1.0) 1.0 mg/dL (0.6-1.0) 1.1 mg/dL (0.6-1.0) Estimated GFR (Cockcroft-Gault) 45.2 50.0 55.8 50.0 Glucose Level 153 mg/dL (70-99) 165 mg/dL (70-99) 138 mg/dL (70-99) 115 mg/dL (70-99) Calcium Level 7.6 mg/dL (8.5-10.1) 7.5 mg/dL (8.5-10.1) 7.8 mg/dL (8.5-10.1) 7.9 mg/dL (8.5-10.1) Phosphorus Level 3.5 mg/dL (2.6-4.7) 3.3 mg/dL (2.6-4.7) 2.9 mg/dL (2.6-4.7) 2.7 mg/dL (2.6-4.7) Magnesium Level 2.4 mg/dL (1.8-2.4) 2.8 mg/dL (1.8-2.4) 3.0 mg/dL (1.8-2.4) 2.9 mg/dL (1.8-2.4) Acetone Level Sm pos (NEG) Bedside Venous pH 7.40 (7.32-7.42) Bedside Venous pCO2 47 mmHg (41-51) Bedside Venous pO2 36 mmHg (20-40) Venous Blood HCO3 29 mmol/L (24-28) POC Venous O2 Saturation (Yumi) 69 % Bedside FiO2 21 White Blood Count 14.6 x10^3/uL (4.0-11.0) Red Blood Count 3.36 x10^6/uL (3.50-5.40) Hemoglobin 10.2 g/dL (12.0-15.5) Hematocrit 29.8 % (36.0-47.0) Mean Corpuscular Volume 89 fL (79-100) Mean Corpuscular Hemoglobin 30 pg (25-35) Mean Corpuscular Hemoglobin Concent 34 g/dL (31-37) Red Cell Distribution Width 17.1 % (11.5-14.5) Platelet Count 39 x10^3/uL (140-400) Triglycerides Level 93 mg/dL (0-150) Test 09/24/18 08:00 O2 Saturation 96 % (92-99) Arterial Blood pH 7.41 (7.35-7.45) Arterial Blood pCO2 at Patient Temp 39 mmHg (35-46) Arterial Blood pO2 at Patient Temp 88 mmHg (65-108) Arterial Blood HCO3 24 mmol/L (21-28) Arterial Blood Base Excess -1 mmol/L (-3-3) FiO2 35 Medications Active Scripts Medications Dose Route/Sig Max Daily Dose Days Date Category [iron] 325 Mg PO 09/23/18 Reported Haloperidol 10 Mg Tablet 10 Mg PO QHS 09/23/18 Reported Ventolin Hfa Inhaler (Albuterol Sulfate) 18 Gm Hfa.aer.ad 2 Puff INH Q4HRS PRN 07/04/18 Reported Pristiq Er (Desvenlafaxine Succinate) 50 Mg Tab.er.24h 1 Tab PO DAILY 07/01/18 Reported Amitriptyline Hcl 25 Mg Tablet 1 Tab PO QHS 07/01/18 Reported Diazepam 5 Mg Tablet 5 Mg PO TID 07/01/18 Reported Gabapentin (Gabapentin) 300 Mg Capsule 300 Mg PO TID 07/01/18 Reported Impression . 1. Acute respiratory failure, multifactorial in etiology including shock, acute kidney injury 2. Shock, probably hypovolemic, cannot rule out septic 3. Abnormal CT of the chest with left lower lobe dense atelectasis ? pneumonia.and RUL plate like atelectasis 4. Acute kidney injury. 5. Electrolyte abnormality. 6. Gastrointestinal bleeding. 7. Hypotension. 8. Severe metabolic acidosis secondary to shock and acute kidney injury Plan . 1. AC mode. follow ABG 2. wean pressors 3. Nephrology is consulted. off CRRT per Nephrology. 4. Continue antibiotic. 5. check sputum for culture. 6. chest x-ray today with adequate position of ET tube. 7. bronchodilator. 8. Protonix 9. GI rec 10. procalcitonin 7.9/ high 11. SCDs for DVT prophylaxis. 12. Continue pressors to keep mean arterial pressure more than 65. 13. The findings and recommendations were discussed with RN. cct 30 min HOANG CHUNG MD Sep 24, 2018 11:41
--- NOTE | 2018-09-24 12:02 | PDOC ---
Renal-Progress Notes Subjective Notes Notes NONE, INTUBATED History of Present Illness Hx of present illness STABLE Vitals Vitals Vital Signs Date Time Temp Pulse Resp B/P (MAP) Pulse Ox O2 Delivery O2 Flow Rate FiO2 09/24/18 11:52 97.9 93 18 100 97.9 09/24/18 10:18 Ventilator 09/24/18 09:00 124/56 (78) Weight Weight [ ] I.O. Intake and Output Intake and Output 09/24/18 07:00 Intake Total 900 ml Output Total 1394 ml Balance -494 ml Intake Oral 0 ml IV Total 900 ml Output Urine Total 255 ml Gastric Drainage Total 25 ml Other 1114 ml Labs Labs Laboratory Tests Test 09/23/18 12:00 09/23/18 18:15 09/24/18 00:20 09/24/18 06:00 Sodium Level 145 mmol/L (136-145) 146 mmol/L (136-145) 144 mmol/L (136-145) 141 mmol/L (136-145) Potassium Level 3.5 mmol/L (3.5-5.1) 3.3 mmol/L (3.5-5.1) 3.7 mmol/L (3.5-5.1) 3.9 mmol/L (3.5-5.1) Chloride Level 105 mmol/L (98-107) 103 mmol/L (98-107) 102 mmol/L (98-107) 100 mmol/L (98-107) Carbon Dioxide Level 25 mmol/L (21-32) 30 mmol/L (21-32) 32 mmol/L (21-32) 30 mmol/L (21-32) Anion Gap 15 (6-14) 13 (6-14) 10 (6-14) 11 (6-14) Blood Urea Nitrogen 27 mg/dL (7-20) 23 mg/dL (7-20) 20 mg/dL (7-20) 19 mg/dL (7-20) Creatinine 1.2 mg/dL (0.6-1.0) 1.1 mg/dL (0.6-1.0) 1.0 mg/dL (0.6-1.0) 1.1 mg/dL (0.6-1.0) Estimated GFR (Cockcroft-Gault) 45.2 50.0 55.8 50.0 Glucose Level 153 mg/dL (70-99) 165 mg/dL (70-99) 138 mg/dL (70-99) 115 mg/dL (70-99) Calcium Level 7.6 mg/dL (8.5-10.1) 7.5 mg/dL (8.5-10.1) 7.8 mg/dL (8.5-10.1) 7.9 mg/dL (8.5-10.1) Phosphorus Level 3.5 mg/dL (2.6-4.7) 3.3 mg/dL (2.6-4.7) 2.9 mg/dL (2.6-4.7) 2.7 mg/dL (2.6-4.7) Magnesium Level 2.4 mg/dL (1.8-2.4) 2.8 mg/dL (1.8-2.4) 3.0 mg/dL (1.8-2.4) 2.9 mg/dL (1.8-2.4) Acetone Level Sm pos (NEG) Bedside Venous pH 7.40 (7.32-7.42) Bedside Venous pCO2 47 mmHg (41-51) Bedside Venous pO2 36 mmHg (20-40) Venous Blood HCO3 29 mmol/L (24-28) POC Venous O2 Saturation (Yumi) 69 % Bedside FiO2 21 White Blood Count 14.6 x10^3/uL (4.0-11.0) Red Blood Count 3.36 x10^6/uL (3.50-5.40) Hemoglobin 10.2 g/dL (12.0-15.5) Hematocrit 29.8 % (36.0-47.0) Mean Corpuscular Volume 89 fL (79-100) Mean Corpuscular Hemoglobin 30 pg (25-35) Mean Corpuscular Hemoglobin Concent 34 g/dL (31-37) Red Cell Distribution Width 17.1 % (11.5-14.5) Platelet Count 39 x10^3/uL (140-400) Triglycerides Level 93 mg/dL (0-150) Test 09/24/18 08:00 O2 Saturation 96 % (92-99) Arterial Blood pH 7.41 (7.35-7.45) Arterial Blood pCO2 at Patient Temp 39 mmHg (35-46) Arterial Blood pO2 at Patient Temp 88 mmHg (65-108) Arterial Blood HCO3 24 mmol/L (21-28) Arterial Blood Base Excess -1 mmol/L (-3-3) FiO2 35 Micro Micro Microbiology 09/22/18 Blood Culture - Preliminary, Resulted NO GROWTH AFTER 1 DAY Review of Systems Constitutional: yes: unresponsive Physical Exam General Appearance: no apparent distress Skin: warm Respiratory: decreased breath sounds Heart: S1S2, RRR Abdomen: soft, bowel sounds present Genitourinary: bladder flat Extremities: pulses present Neurology: confused, other (SEDATED) Assessment Assessment IMP MARII-IMPROVING UO ACUTE RESP FAILURE SHOCK HYPOVOLEMIA ? PNEUMONIA ANEMIA ?GIB MET ACIDOSIS-BETTER PLAN PT REMAINS IN THE ICU STOP HER CRRT FOR NOW MAY NEED IHD ANTIBIOTICS PRESSORS NEEDED STOP HCO3 GTT TPN FOR NOW MACKENZIE THOMAS MD Sep 24, 2018 12:02
[2018-09-24] MEDS: VANCOMYCIN PER PHARMACY MC PRN ×4 (12:36→21:37)
[2018-09-24] MEDS: VASOPRESSIN 40 UNIT in IV DEXTROSE 5% 100ML 100 ML IV PRN (12:53)
[2018-09-24] MEDS: NOREPINEPHRIN 8MG/250ML PREMIX 250 ML IV PRN (12:54)
--- NOTE | 2018-09-24 12:54 | PDOC4 ---
Operative Note Operative Note EGD Meds Versed drip on ventilator Pre-op dx anemia/coffee ground emesis post-op dx s/p gastric bypass with non-erosive grastitis Plan resume medical therapy serial CBCs JENNA CASTILLO MD Sep 24, 2018 12:54
--- NOTE | 2018-09-24 13:17 | OP ---
DATE OF SURGERY: 09/24/2018 PROCEDURE PERFORMED: Esophagogastroduodenoscopy. INSTRUMENT USED: Olympus video upper scope. MEDICATIONS RECEIVED: The patient is already on Versed, propofol drip. PREOPERATIVE DIAGNOSES: Anemia and coffee-ground emesis. POSTOPERATIVE DIAGNOSES: Status post gastric bypass, some nonerosive gastritis. DESCRIPTION OF PROCEDURE: After risks and benefits of procedure including risk of hemorrhage and perforation were discussed with the patient's family/power of gift packer, informed consent was obtained. The patient was then placed in the supine position, and she was intubated. Endoscope was then carefully inserted laterally to the endotracheal tube and advanced with minimal difficulty through the esophagus, gastric bypass and the small intestine. No evidence of retained blood, malignancy varices or ulcers were encountered. Gastric bypass was intact with minimal inflammation. Scope was then straightened and withdrawn. No additional pathology or complications.. DISPOSITION: Resume diet, meds and activity. CONDITION: Guarded. We will recommend discontinuing her proton pump drip and begin orogastric feedings as tolerated. JENNA CASTILLO MD DR: WILBUR/nanette JOB#: [id number] / [id number] [facility] RECORDS, MEDICAL
--- NOTE | 2018-09-24 15:02 | NUR ---
SS following for discharge planning. SS reviewed pt chart. Pt is from home with son and daughter in law and currently on the Vent. SS will continue to follow for pending discharge needs.
[2018-09-24 21:29] LABS: VANC TR 14.3 mcg/mL (10.0-20.0)
[2018-09-24] MEDS: VANCOMYCIN 1 GM in IV NORMAL SALINE 250ML 250 ML IV SCH (21:38)
--- NOTE | 2018-09-24 21:38 | NUR ---
Pharmacy Vancomycin Dosing Note S:Consulted to monitor and dose vancomycin started 09/22/18. O:ISABELL BUCIO is a 63 year old F with Sepsis Empiric . Height: 5 feet, 0 inches Weight: 73.772622 kg Sultan Body Weight: 45.50 Adjusted Body Weight: 56.50 Dosing Weight: Actual Other Antibiotics: ZOSYN LABS: Last BUN: 19 Last Creatinine: 1.1 Creatinine Clearance: 55 (PT WAS ON CRRT WHEN DRAWN) mL/min Last WBC: 14.6 Last Procalcitonin: 7.29 Tmax (past 24 hours): 100.5 Microbiology: 09/24 NGTD I/O: 900/1400 Drug Levels: Last Trough level: 14.3 on 09/24/18 at 2030 Last dose given 09/23/18 at 2113 Vancomycin Dosing: Loading Dose: 1750 mg x1 Dosing Weight: Actual Target Trough: 15-20 A: Based on: Therapeutic trough P: 1. Continue Vancomycin 1000 mg IV q24h 2. Follow up Trough level as needed as determined by renal function. 3. Pharmacy will continue to monitor, follow and adjust therapy as needed. AVIVA DAS RPH, 09/24/18 [id number]
[2018-09-24] MEDS ORDERED: [UNRECOGNIZED DRUG - OTHER] IV SCH ×10 (22:00)
[2018-09-24] MEDS ORDERED: TOTAL PARENTERAL NUTRITION 0 ML, AMINO ACID 15% 60 GM, DEXTROSE 70 % IN WATER 195 GM, F... IV SCH ×10 (22:00)
[2018-09-24] MEDS ORDERED: DEXTROSE 70% IV SCH ×10 (22:00)
[2018-09-24] MEDS ORDERED: TOTAL PARENTERAL NUTRITION IV SCH ×10 (22:00)
[2018-09-24] MEDS ORDERED: AMINO ACID IV SCH ×10 (22:00)
[2018-09-25] VITALS (29 sets, daily range): BP systolic 83–181; BP diastolic 45–82
[2018-09-25] MEDS: PIPERACILLIN/TAZOBACTAM 3.375 GM in IV NORMAL SALINE 50ML 50 ML IV SCH ×5 (00:37→23:57)
[2018-09-25 06:36] LABS: BASO % 0 % (0-3); EOS # 0.1 x10^3/uL (0.0-0.7); EOS % 1 % (0-3); HEMATOCRIT 25.1 % (36.0-47.0); HEMOGLOBIN 8.4 g/dL (12.0-15.5); LYMPH # 0.9 x10^3/uL (1.0-4.8); LYMPH % 7 % (24-48); MEAN CORPUSCULAR HEMOGLOBIN 30 pg (25-35); MEAN CORPUSCULAR HGB CONC 34 g/dL (31-37); MEAN CORPUSCULAR VOLUME 89 fL (79-100); MONO # 0.6 x10^3/uL (0.0-1.1); MONO % 5 % (0-9); NEUT # 10.7 x10^3uL (1.8-7.7); NEUT % 87 % (31-73); PLATELET COUNT 47 x10^3/uL (140-400); RED CELL DISTRIBUTION WIDTH 17.2 % (11.5-14.5); WHITE BLOOD COUNT 12.3 x10^3/uL (4.0-11.0)
[2018-09-25 06:51] LABS: CALCIUM 7.1 mg/dL (8.5-10.1); CREATININE 1.8 mg/dL (0.6-1.0); GFR 28.3; MAGNESIUM 2.7 mg/dL (1.8-2.4)
[2018-09-25 07:46] LABS: BASE EXCESS ABG 4 mmol/L (-3-3); HCO3 ABG 26 mmol/L (21-28); PCO2 ABG 29 mmHg (35-46); PO2 ABG 106 mmHg (65-108); SAT O2 ABG 98 % (92-99)
[2018-09-25 07:50] LABS: FIO2 ABG 35
[2018-09-25] MEDS: IPRATRPIUM/ALBUTEROL 0.5/2.5MG 3 ML NEBU. NEB SCH ×4 (08:00→19:26)
--- NOTE | 2018-09-25 08:21 | PDOC ---
PROGRESS NOTES Subjective Subjective Patient sedated, on vent. Objective Objective Vital Signs Date Time Temp Pulse Resp B/P (MAP) Pulse Ox O2 Delivery O2 Flow Rate FiO2 09/25/18 07:30 100 Ventilator 09/25/18 07:00 79 18 104/55 (71) 09/25/18 04:00 98.1 98.1 Intake and Output 09/25/18 06:59 Intake Total 1443 ml Output Total 510 ml Balance 933 ml Intake Oral 0 ml IV Total 1443 ml Output Urine Total 465 ml Oral Regurgitation 45 ml Physical Exam Abdomen: Normal bowel sounds, Soft, No tenderness Heart: Regular rate Extremities: No edema General: No acute distress Lungs: Clear to auscultation (anteriorly) Plan Plan of Care 1. Metabolic acidosis with acute renal failure - much improved after CRRT. Creatinine elevated today, further tx per Renal. K+ low, IV replacement ordered. 2. acute respiratory failure with possible pneumonia - stable on vent, continue abx. BP stable on small dose of pressor. 3. GI bleed - EGD yesterday with nonerosive gastritis and no evidence of recent bleeding. Hgb decreased today without evidence of acute blood loss. Platelets continue low but stable. Comment Review of Relevant I have reviewed the following items michelle (where applicable) has been applied. Labs Laboratory Tests Test 09/23/18 12:00 09/23/18 18:15 09/24/18 00:20 09/24/18 06:00 Sodium Level 145 mmol/L (136-145) 146 mmol/L (136-145) 144 mmol/L (136-145) 141 mmol/L (136-145) Potassium Level 3.5 mmol/L (3.5-5.1) 3.3 mmol/L (3.5-5.1) 3.7 mmol/L (3.5-5.1) 3.9 mmol/L (3.5-5.1) Chloride Level 105 mmol/L (98-107) 103 mmol/L (98-107) 102 mmol/L (98-107) 100 mmol/L (98-107) Carbon Dioxide Level 25 mmol/L (21-32) 30 mmol/L (21-32) 32 mmol/L (21-32) 30 mmol/L (21-32) Anion Gap 15 (6-14) 13 (6-14) 10 (6-14) 11 (6-14) Blood Urea Nitrogen 27 mg/dL (7-20) 23 mg/dL (7-20) 20 mg/dL (7-20) 19 mg/dL (7-20) Creatinine 1.2 mg/dL (0.6-1.0) 1.1 mg/dL (0.6-1.0) 1.0 mg/dL (0.6-1.0) 1.1 mg/dL (0.6-1.0) Estimated GFR (Cockcroft-Gault) 45.2 50.0 55.8 50.0 Glucose Level 153 mg/dL (70-99) 165 mg/dL (70-99) 138 mg/dL (70-99) 115 mg/dL (70-99) Calcium Level 7.6 mg/dL (8.5-10.1) 7.5 mg/dL (8.5-10.1) 7.8 mg/dL (8.5-10.1) 7.9 mg/dL (8.5-10.1) Phosphorus Level 3.5 mg/dL (2.6-4.7) 3.3 mg/dL (2.6-4.7) 2.9 mg/dL (2.6-4.7) 2.7 mg/dL (2.6-4.7) Magnesium Level 2.4 mg/dL (1.8-2.4) 2.8 mg/dL (1.8-2.4) 3.0 mg/dL (1.8-2.4) 2.9 mg/dL (1.8-2.4) Acetone Level Sm pos (NEG) Bedside Venous pH 7.40 (7.32-7.42) Bedside Venous pCO2 47 mmHg (41-51) Bedside Venous pO2 36 mmHg (20-40) Venous Blood HCO3 29 mmol/L (24-28) POC Venous O2 Saturation (Yumi) 69 % Bedside FiO2 21 White Blood Count 14.6 x10^3/uL (4.0-11.0) Red Blood Count 3.36 x10^6/uL (3.50-5.40) Hemoglobin 10.2 g/dL (12.0-15.5) Hematocrit 29.8 % (36.0-47.0) Mean Corpuscular Volume 89 fL (79-100) Mean Corpuscular Hemoglobin 30 pg (25-35) Mean Corpuscular Hemoglobin Concent 34 g/dL (31-37) Red Cell Distribution Width 17.1 % (11.5-14.5) Platelet Count 39 x10^3/uL (140-400) Triglycerides Level 93 mg/dL (0-150) Hepatitis B Core Total Antibody Negative (Negative) Test 09/24/18 08:00 09/24/18 20:30 09/25/18 00:19 09/25/18 06:17 O2 Saturation 96 % (92-99) Arterial Blood pH 7.41 (7.35-7.45) Arterial Blood pCO2 at Patient Temp 39 mmHg (35-46) Arterial Blood pO2 at Patient Temp 88 mmHg (65-108) Arterial Blood HCO3 24 mmol/L (21-28) Arterial Blood Base Excess -1 mmol/L (-3-3) FiO2 35 Vancomycin Level Trough 14.3 mcg/mL (10.0-20.0) Vancomycin Last Dose Date Unk Vancomycin Last Dose Time Unk Glucose (Fingerstick) 127 mg/dL (70-99) 153 mg/dL (70-99) Test 09/25/18 06:25 09/25/18 07:40 White Blood Count 12.3 x10^3/uL (4.0-11.0) Red Blood Count 2.80 x10^6/uL (3.50-5.40) Hemoglobin 8.4 g/dL (12.0-15.5) Hematocrit 25.1 % (36.0-47.0) Mean Corpuscular Volume 89 fL (79-100) Mean Corpuscular Hemoglobin 30 pg (25-35) Mean Corpuscular Hemoglobin Concent 34 g/dL (31-37) Red Cell Distribution Width 17.2 % (11.5-14.5) Platelet Count 47 x10^3/uL (140-400) Neutrophils (%) (Auto) 87 % (31-73) Lymphocytes (%) (Auto) 7 % (24-48) Monocytes (%) (Auto) 5 % (0-9) Eosinophils (%) (Auto) 1 % (0-3) Basophils (%) (Auto) 0 % (0-3) Neutrophils # (Auto) 10.7 x10^3uL (1.8-7.7) Lymphocytes # (Auto) 0.9 x10^3/uL (1.0-4.8) Monocytes # (Auto) 0.6 x10^3/uL (0.0-1.1) Eosinophils # (Auto) 0.1 x10^3/uL (0.0-0.7) Basophils # (Auto) 0.0 x10^3/uL (0.0-0.2) Sodium Level 141 mmol/L (136-145) Potassium Level 3.0 mmol/L (3.5-5.1) Chloride Level 101 mmol/L (98-107) Carbon Dioxide Level 31 mmol/L (21-32) Anion Gap 9 (6-14) Blood Urea Nitrogen 37 mg/dL (7-20) Creatinine 1.8 mg/dL (0.6-1.0) Estimated GFR (Cockcroft-Gault) 28.3 Glucose Level 164 mg/dL (70-99) Calcium Level 7.1 mg/dL (8.5-10.1) Phosphorus Level 2.0 mg/dL (2.6-4.7) Magnesium Level 2.7 mg/dL (1.8-2.4) O2 Saturation 98 % (92-99) Arterial Blood pH 7.56 (7.35-7.45) Arterial Blood pCO2 at Patient Temp 29 mmHg (35-46) Arterial Blood pO2 at Patient Temp 106 mmHg (65-108) Arterial Blood HCO3 26 mmol/L (21-28) Arterial Blood Base Excess 4 mmol/L (-3-3) FiO2 35 Laboratory Tests Test 09/24/18 20:30 09/25/18 00:19 09/25/18 06:17 09/25/18 06:25 Vancomycin Level Trough 14.3 mcg/mL (10.0-20.0) Vancomycin Last Dose Date Unk Vancomycin Last Dose Time Unk Glucose (Fingerstick) 127 mg/dL (70-99) 153 mg/dL (70-99) White Blood Count 12.3 x10^3/uL (4.0-11.0) Red Blood Count 2.80 x10^6/uL (3.50-5.40) Hemoglobin 8.4 g/dL (12.0-15.5) Hematocrit 25.1 % (36.0-47.0) Mean Corpuscular Volume 89 fL (79-100) Mean Corpuscular Hemoglobin 30 pg (25-35) Mean Corpuscular Hemoglobin Concent 34 g/dL (31-37) Red Cell Distribution Width 17.2 % (11.5-14.5) Platelet Count 47 x10^3/uL (140-400) Neutrophils (%) (Auto) 87 % (31-73) Lymphocytes (%) (Auto) 7 % (24-48) Monocytes (%) (Auto) 5 % (0-9) Eosinophils (%) (Auto) 1 % (0-3) Basophils (%) (Auto) 0 % (0-3) Neutrophils # (Auto) 10.7 x10^3uL (1.8-7.7) Lymphocytes # (Auto) 0.9 x10^3/uL (1.0-4.8) Monocytes # (Auto) 0.6 x10^3/uL (0.0-1.1) Eosinophils # (Auto) 0.1 x10^3/uL (0.0-0.7) Basophils # (Auto) 0.0 x10^3/uL (0.0-0.2) Sodium Level 141 mmol/L (136-145) Potassium Level 3.0 mmol/L (3.5-5.1) Chloride Level 101 mmol/L (98-107) Carbon Dioxide Level 31 mmol/L (21-32) Anion Gap 9 (6-14) Blood Urea Nitrogen 37 mg/dL (7-20) Creatinine 1.8 mg/dL (0.6-1.0) Estimated GFR (Cockcroft-Gault) 28.3 Glucose Level 164 mg/dL (70-99) Calcium Level 7.1 mg/dL (8.5-10.1) Phosphorus Level 2.0 mg/dL (2.6-4.7) Magnesium Level 2.7 mg/dL (1.8-2.4) Test 09/25/18 07:40 O2 Saturation 98 % (92-99) Arterial Blood pH 7.56 (7.35-7.45) Arterial Blood pCO2 at Patient Temp 29 mmHg (35-46) Arterial Blood pO2 at Patient Temp 106 mmHg (65-108) Arterial Blood HCO3 26 mmol/L (21-28) Arterial Blood Base Excess 4 mmol/L (-3-3) FiO2 35 Microbiology 09/22/18 Blood Culture - Preliminary, Resulted NO GROWTH AFTER 2 DAYS 09/22/18 Urine Culture - Final, Complete 09/22/18 Urine Culture Result 1 (MELODY) - Final, Complete Medications Current Medications Sodium Chloride 1,000 ml @ 1,000 mls/hr 1X ONCE IV Last administered on at 17:18; Start 09/22/18 at 17:15; Stop 09/22/18 at 18:14; Status DC Pantoprazole Sodium 80 mg/ Sodium Chloride 100 ml @ 10 mls/hr Q10H IV Last administered on 09/24/18at 05:46; Start 09/22/18 at 17:15; Stop 09/24/18 at 15:43 ; Status DC Pantoprazole Sodium (PROTONIX VIAL for IV PUSH) 80 mg 1X ONCE IVP Last administered on 09/22/18at 17:39; Start 09/22/18 at 17:15; Stop 09/22/18 at 17:17 ; Status DC Ceftriaxone Sodium (Rocephin) 1 gm 1X ONCE IVP ; Start 09/22/18 at 17:30; Stop 09/22/18 at 17:30; Status DC Sodium Chloride 1,000 ml @ 1,000 mls/hr 1X ONCE IV Last administered on at 17:27; Start 09/22/18 at 17:30; Stop 09/22/18 at 18:29; Status DC Vancomycin HCl (Vanco Per Pharmacy) 1 each PRN DAILY PRN MC SEE COMMENTS Last administered on 09/24/18at 21:37; Start 09/22/18 at 17:30 Piperacillin Sod/ Tazobactam Sod (Zosyn Per Pharmacy) 1 each PRN DAILY PRN MC SEE COMMENTS; Start 09/22/18 at 17:30 Piperacillin Sod/ Tazobactam Sod 3.375 gm/Sodium Chloride 50 ml @ 100 mls/hr 1X ONCE IV Last administered on 09/22/18at 18:04; Start 09/22/18 at 17:30; Stop 09/22/18 at 17:59; Status DC Vancomycin HCl 1.75 gm/Sodium Chloride 500 ml @ 250 mls/hr 1X ONCE IV Last administered on 09/22/18at 23:28; Start 09/22/18 at 17:30; Stop 09/22/18 at 19:29 ; Status DC Sodium Bicarbonate (Sodium Bicarb Adult 8.4% Syr) 50 meq 1X ONCE IV Last administered on 09/22/18 18:03; Start 09/22/18 at 17:45; Stop 09/22/18 at 17:46 ; Status DC Norepinephrine Bitartrate 250 ml @ 0 mls/hr 1X ONCE IV Last administered on at 17:51; Start 09/22/18 at 17:45; Stop 09/22/18 at 17:46; Status DC Sodium Bicarbonate 150 meq/Sterile Water 1,150 ml @ 125 mls/hr 1X ONCE IV Last administered on 09/22/18at 18:30; Start 09/22/18 at 18:30; Stop 09/23/18 at 03:41; Status DC Piperacillin Sod/ Tazobactam Sod 3.375 gm/Sodium Chloride 50 ml @ 100 mls/hr Q6HRS IV Last administered on 09/25/18at 06:00; Start 09/23/18 at 00:00 Vasopressin 40 unit/Dextrose 102 ml @ 6 mls/hr CONT PRN IV SEE I/O RECORD Last administered on 09/24/18at 12:53; Start 09/22/18 at 18:45 Fentanyl Citrate (Fentanyl 2ml Vial) 50 mcg 1X ONCE IV ; Start 09/22/18 at 19: 00; Stop 09/22/18 at 19:01; Status DC Midazolam HCl 100 ml @ 5 mls/hr CONT PRN IV SEE I/O RECORD Last administered on 09/24/18at 20:40; Start 09/22/18 at 19:00 Lidocaine/Sodium Bicarbonate (Buffered Lidocaine 1%) 4 ml 1X ONCE INJ Last administered on 09/22/18 19:15; Start 09/22/18 at 19:15; Stop 09/22/18 at 19:18 ; Status DC Heparin Sodium (Porcine) (Heparin Sodium) 2,500 unit 1X ONCE INT CAT Last administered on 09/22/18at 19:15; Start 09/22/18 at 19:15; Stop 09/22/18 at 19:18 ; Status DC Heparin Sodium (Porcine) (Heparin Sodium) 10,000 unit STK-MED ONCE .ROUTE ; Start 09/22/18 at 19:17; Stop 09/22/18 at 19:18; Status DC Sodium Bicarbonate 40 meq/Potassium Chloride 15 meq/ Magnesium Sulfate 5 meq/ Calcium Chloride 2.5 meq/ Bicarbonate Dialysis Soln w/ out KCl 5,050.5172 ml @ 1 ,000 mls/hr Q5H4M IV Last administered on 09/23/18 05:02; Start 09/22/18 at 22 :00; Stop 09/23/18 at 08:43; Status DC Sodium Bicarbonate 40 meq/Potassium Chloride 15 meq/ Magnesium Sulfate 5 meq/ Calcium Chloride 2.5 meq/ Bicarbonate Dialysis Soln w/ out KCl 5,050.5172 ml @ 1 ,000 mls/hr Q5H4M IV Last administered on 09/23/18at 05:02; Start 09/22/18 at 22 :00; Stop 09/23/18 at 08:43; Status DC Sodium Bicarbonate 150 meq/Sterile Water 1,150 ml @ 300 mls/hr Q3H50M IV Last administered on 09/24/18at 05:45; Start 09/22/18 at 22:00; Stop 09/24/18 at 15:44 ; Status DC Etomidate (Amidate) 20 mg STK-MED ONCE IV ; Start 09/22/18 at 20:36; Stop at 20:37; Status DC Rocuronium Kyburz (Zemuron) 50 mg STK-MED ONCE .ROUTE ; Start 09/22/18 at 20:36 ; Stop 09/22/18 at 20:37; Status DC Norepinephrine Bitartrate 250 ml @ 1.875 mls/ hr CONT PRN IV SEE I/O RECORD Last administered on 09/24/18at 12:54; Start 09/22/18 at 23:30 Fentanyl Citrate (Fentanyl 2ml Vial) 50 mcg PRN Q1HR PRN IV PAIN Last administered on 09/23/18at 23:48; Start 09/22/18 at 23:30 Epinephrine HCl 4 mg/Sodium Chloride 254 ml @ 26.44 mls/ hr CONT PRN IV SEE I/ O RECORD; Start 09/23/18 at 02:15 Albuterol/ Ipratropium (Duoneb) 3 ml RTQID NEB Last administered on 09/24/18at 20:01; Start 09/23/18 at 08:00 Sodium Bicarbonate 40 meq/Potassium Chloride 15 meq/ Magnesium Sulfate 5 meq/ Calcium Chloride 17.5 meq/ Bicarbonate Dialysis Soln w/ out KCl 5,061.2315 ml @ 1,000 mls/hr Q5H4M IV Last administered on 09/23/18at 10:13; Start 09/23/18 at 10:00; Stop 09/23/18 at 10:32; Status DC Sodium Bicarbonate 40 meq/Potassium Chloride 15 meq/ Magnesium Sulfate 5 meq/ Calcium Chloride 17.5 meq/ Bicarbonate Dialysis Soln w/ out KCl 5,061.2315 ml @ 1,000 mls/hr Q5H4M IV Last administered on 09/23/18at 10:12; Start 09/23/18 at 10:00; Stop 09/23/18 at 10:33; Status DC Sodium Bicarbonate 40 meq/Potassium Chloride 15 meq/ Magnesium Sulfate 5 meq/ Calcium Chloride 5 meq/ Bicarbonate Dialysis Soln w/ out KCl 5,052.3029 ml @ 1, 000 mls/hr Q5H4M IV Last administered on 09/23/18at 15:40; Start 09/23/18 at 11: 00; Stop 09/23/18 at 19:28; Status DC Sodium Bicarbonate 40 meq/Potassium Chloride 15 meq/ Magnesium Sulfate 5 meq/ Calcium Chloride 5 meq/ Bicarbonate Dialysis Soln w/ out KCl 5,052.3029 ml @ 1, 000 mls/hr Q5H4M IV Last administered on 09/23/18at 15:39; Start 09/23/18 at 10: 45; Stop 09/23/18 at 19:28; Status DC Vancomycin HCl 1 gm/Sodium Chloride 250 ml @ 250 mls/hr Q24H IV Last administered on 09/24/18at 21:38; Start 09/23/18 at 21:00 Vancomycin HCl (Vancomycin Trough Level) 1 each 1X ONCE MC Last administered on 09/24/18at 20:30; Start 09/24/18 at 20:30; Stop 09/24/18 at 20:31; Status DC Potassium Chloride 15 meq/ Magnesium Sulfate 5 meq/Calcium Chloride 5 meq/ Bicarbonate Dialysis Soln w/ out KCl 5,012.3029 ml @ 1,000 mls/hr Q5H1M IV Last administered on 09/23/18at 23:50; Start 09/23/18 at 20:30; Stop 09/24/18 at 04:06; Status DC Potassium Chloride 35 meq/ Magnesium Sulfate 5 meq/Calcium Chloride 5 meq/ Bicarbonate Dialysis Soln w/ out KCl 5,022.3029 ml @ 1,000 mls/hr Q5H2M IV Last administered on 09/23/18at 23:49; Start 09/23/18 at 20:30; Stop 09/24/18 at 04:06; Status DC Fentanyl Citrate 30 ml @ 0 mls/hr CONT PRN IV SEE PROTOCOL Last administered on 09/24/18at 20:44; Start 09/23/18 at 22:30 Chlorhexidine Gluconate (Peridex) 15 ml BID MM Last administered on 09/24/18at 21:41; Start 09/24/18 at 09:00 Potassium Chloride 15 meq/ Magnesium Sulfate 2.5 meq/Calcium Chloride 5 meq/ Bicarbonate Dialysis Soln w/ out KCl 5,011.6871 ml @ 1,000 mls/hr Q5H1M IV Last administered on 09/24/18at 04:34; Start 09/24/18 at 04:30; Stop 09/24/18 at 17:00; Status DC Potassium Chloride 35 meq/ Magnesium Sulfate 2.5 meq/Calcium Chloride 5 meq/ Bicarbonate Dialysis Soln w/ out KCl 5,021.6871 ml @ 1,000 mls/hr Q5H2M IV Last administered on 09/24/18at 04:34; Start 09/24/18 at 04:30; Stop 09/24/18 at 17:00; Status DC Sodium Chloride 90 meq/Potassium Chloride 50 meq/ Potassium Phosphate 13.6 mmol/ Magnesium Sulfate 10 meq/ Calcium Gluconate 10 meq/ Multivitamins 10 ml/Chromium / Copper/Manganese/ Seleni/Zn 1 ml/ Total Parenteral Nutrition/Amino Acids/ Dextrose/ Fat Emulsion Intravenous 87.0013 ml @ 3.625 mls/hr TPN CONT IV ; Start 09/24/18 at 22:00; Stop 09/25/18 at 21:59; Status UNV Info (Tpn Per Pharmacy) 1 each PRN DAILY PRN MC SEE COMMENTS Last administered on 09/24/18at 11:31; Start 09/24/18 at 08:15 Sodium Acetate 45 meq/Potassium Acetate 25 meq/ Potassium Phosphate 13.6 mmol/ Magnesium Sulfate 10 meq/ Calcium Gluconate 10 meq/ Multivitamins 10 ml/Chromium / Copper/Manganese/ Seleni/Zn 1 ml/ Total Parenteral Nutrition/Amino Acids/ Dextrose/ Fat Emulsion Intravenous 1,422 ml @ 59.25 mls/ hr TPN CONT IV Last administered on 09/24/18at 22:50; Start 09/24/18 at 22:00; Stop 09/25/18 at 21:59 Active Scripts Active Reported [iron] 325 Mg PO Haloperidol 10 Mg Tablet 10 Mg PO QHS Ventolin Hfa Inhaler (Albuterol Sulfate) 18 Gm Hfa.aer.ad 2 Puff INH Q4HRS PRN Pristiq Er (Desvenlafaxine Succinate) 50 Mg Tab.er.24h 1 Tab PO DAILY Amitriptyline Hcl 25 Mg Tablet 1 Tab PO QHS Diazepam 5 Mg Tablet 5 Mg PO TID Gabapentin (Gabapentin) 300 Mg Capsule 300 Mg PO TID Vitals/I & O Vital Sign - Last 24 Hours 09/24/18 09/24/18 09/24/18 09/24/18 09:00 10:00 10:18 11:00 Pulse 81 86 88 Resp 18 18 18 B/P (MAP) 124/56 (78) 174/64 (100) 154/54 (87) Pulse Ox 100 100 100 100 O2 Delivery Ventilator Ventilator Ventilator Ventilator 09/24/18 09/24/18 09/24/18 09/24/18 11:52 11:57 12:00 12:00 Temp 97.9 98.9 97.9 98.9 Pulse 93 92 Resp 18 20 B/P (MAP) 147/86 (106) Pulse Ox 100 100 100 O2 Delivery Ventilator Mechanical Ventilator Ventilator 09/24/18 09/24/18 09/24/18 09/24/18 12:30 12:35 12:45 13:00 Pulse 100 99 98 Resp 18 18 18 B/P (MAP) 143/54 173/57 (95) Pulse Ox 100 100 97 O2 Delivery Mechanical Ventilator Ventilator Ventilator Ventilator 09/24/18 09/24/18 09/24/18 09/24/18 13:20 14:00 15:00 15:56 Pulse 98 96 Resp 22 19 B/P (MAP) 168/64 (98) 138/57 (84) Pulse Ox 98 98 100 100 O2 Delivery Ventilator Ventilator Ventilator Ventilator 209/24/18 09/24/18 09/24/18 16:00 16:00 17:00 18:00 Temp 101.0 101.0 Pulse 94 96 92 Resp 18 18 18 B/P (MAP) 122/50 (74) 109/45 (66) 132/50 (77) Pulse Ox 100 100 100 O2 Delivery Mechanical Ventilator Ventilator Ventilator Ventilator 09/24/18 09/24/18 09/24/18 09/24/18 19:00 20:00 20:00 20:01 Temp 99.0 99.0 Pulse 64 96 Resp 20 18 B/P (MAP) 127/56 (79) 99/49 (66) Pulse Ox 100 100 100 O2 Delivery Ventilator Mechanical Ventilator Ventilator Ventilator 09/24/18 09/24/18 09/24/18 09/24/18 20:44 20:45 21:00 21:15 Pulse 96 96 92 Resp 18 18 20 B/P (MAP) 71/36 (48) 67/36 (46) 105/56 (72) Pulse Ox 100 100 100 100 O2 Delivery Ventilator Ventilator Ventilator 09/24/18 09/24/18 09/24/18 09/24/18 21:35 21:40 22:00 23:00 Pulse 80 96 Resp 18 20 B/P (MAP) 164/69 (100) 147/53 (84) Pulse Ox 100 100 100 100 O2 Delivery Ventilator Ventilator Ventilator 09/24/18 09/24/18 09/24/18 09/24/18 23:12 23:15 23:30 23:59 Temp 98.4 98.4 Pulse 86 85 90 Resp 16 20 18 B/P (MAP) 127/51 (76) 100/51 (67) 93/42 (59) Pulse Ox 100 100 100 100 O2 Delivery Ventilator Ventilator Ventilator Ventilator 09/24/18 09/25/18 09/25/18 09/25/18 23:59 01:00 01:55 02:00 Pulse 87 92 Resp 24 22 B/P (MAP) 104/55 (71) 170/69 (102) Pulse Ox 100 100 100 O2 Delivery Mechanical Ventilator Ventilator Ventilator Ventilator 09/25/18 09/25/18 09/25/18 09/25/18 02:15 02:30 03:00 03:15 Pulse 90 90 84 84 Resp 20 20 18 18 B/P (MAP) 152/65 (94) 96/49 (65) 83/47 (59) Pulse Ox 100 100 100 100 O2 Delivery Ventilator Ventilator Ventilator Ventilator 09/25/18 09/25/18 09/25/18 09/25/18 03:30 04:00 04:00 04:40 Temp 98.1 98.1 Pulse 84 89 Resp 22 B/P (MAP) 92/47 (62) 125/56 (79) Pulse Ox 100 100 O2 Delivery Ventilator Mechanical Ventilator Ventilator Ventilator 09/25/18 09/25/18 09/25/18 09/25/18 05:00 06:00 06:15 07:00 Pulse 84 82 82 79 Resp 18 20 20 18 B/P (MAP) 94/49 (64) 89/46 (60) 110/54 (72) 104/55 (71) Pulse Ox 100 100 100 100 O2 Delivery Ventilator Ventilator Ventilator Ventilator 09/25/18 07:30 Pulse Ox 100 O2 Delivery Ventilator Intake and Output 09/24/18 09/24/18 09/25/18 14:59 22:59 06:59 Intake Total 110 ml 344 ml 989 ml Output Total 95 ml 205 ml 210 ml Balance 15 ml 139 ml 779 ml MILY COOK MD Sep 25, 2018 08:21
[2018-09-25] MEDS: CHLORHEXIDINE 0.12% 15 ML MOUTHWASH. MM SCH (09:00)
--- NOTE | 2018-09-25 09:03 | PDOC ---
PULMONARY PROGRESS NOTES Subjective AC MODE ON LEVO Vitals Vital Signs Date Time Temp Pulse Resp B/P (MAP) Pulse Ox O2 Delivery O2 Flow Rate FiO2 09/25/18 08:57 100 Ventilator 09/25/18 08:00 99.6 88 13 106/48 (67) 99.6 Lungs: Other (decrease bs) Cardiovascular: S1, S2 Abdomen: Soft, Non-tender Extremities: Other (1+edema) Labs Laboratory Tests Test 09/23/18 12:00 09/23/18 18:15 09/24/18 00:20 09/24/18 06:00 Sodium Level 145 mmol/L (136-145) 146 mmol/L (136-145) 144 mmol/L (136-145) 141 mmol/L (136-145) Potassium Level 3.5 mmol/L (3.5-5.1) 3.3 mmol/L (3.5-5.1) 3.7 mmol/L (3.5-5.1) 3.9 mmol/L (3.5-5.1) Chloride Level 105 mmol/L (98-107) 103 mmol/L (98-107) 102 mmol/L (98-107) 100 mmol/L (98-107) Carbon Dioxide Level 25 mmol/L (21-32) 30 mmol/L (21-32) 32 mmol/L (21-32) 30 mmol/L (21-32) Anion Gap 15 (6-14) 13 (6-14) 10 (6-14) 11 (6-14) Blood Urea Nitrogen 27 mg/dL (7-20) 23 mg/dL (7-20) 20 mg/dL (7-20) 19 mg/dL (7-20) Creatinine 1.2 mg/dL (0.6-1.0) 1.1 mg/dL (0.6-1.0) 1.0 mg/dL (0.6-1.0) 1.1 mg/dL (0.6-1.0) Estimated GFR (Cockcroft-Gault) 45.2 50.0 55.8 50.0 Glucose Level 153 mg/dL (70-99) 165 mg/dL (70-99) 138 mg/dL (70-99) 115 mg/dL (70-99) Calcium Level 7.6 mg/dL (8.5-10.1) 7.5 mg/dL (8.5-10.1) 7.8 mg/dL (8.5-10.1) 7.9 mg/dL (8.5-10.1) Phosphorus Level 3.5 mg/dL (2.6-4.7) 3.3 mg/dL (2.6-4.7) 2.9 mg/dL (2.6-4.7) 2.7 mg/dL (2.6-4.7) Magnesium Level 2.4 mg/dL (1.8-2.4) 2.8 mg/dL (1.8-2.4) 3.0 mg/dL (1.8-2.4) 2.9 mg/dL (1.8-2.4) Acetone Level Sm pos (NEG) Bedside Venous pH 7.40 (7.32-7.42) Bedside Venous pCO2 47 mmHg (41-51) Bedside Venous pO2 36 mmHg (20-40) Venous Blood HCO3 29 mmol/L (24-28) POC Venous O2 Saturation (Yumi) 69 % Bedside FiO2 21 White Blood Count 14.6 x10^3/uL (4.0-11.0) Red Blood Count 3.36 x10^6/uL (3.50-5.40) Hemoglobin 10.2 g/dL (12.0-15.5) Hematocrit 29.8 % (36.0-47.0) Mean Corpuscular Volume 89 fL (79-100) Mean Corpuscular Hemoglobin 30 pg (25-35) Mean Corpuscular Hemoglobin Concent 34 g/dL (31-37) Red Cell Distribution Width 17.1 % (11.5-14.5) Platelet Count 39 x10^3/uL (140-400) Triglycerides Level 93 mg/dL (0-150) Hepatitis B Core Total Antibody Negative (Negative) Test 09/24/18 08:00 09/24/18 20:30 09/25/18 00:19 09/25/18 06:17 O2 Saturation 96 % (92-99) Arterial Blood pH 7.41 (7.35-7.45) Arterial Blood pCO2 at Patient Temp 39 mmHg (35-46) Arterial Blood pO2 at Patient Temp 88 mmHg (65-108) Arterial Blood HCO3 24 mmol/L (21-28) Arterial Blood Base Excess -1 mmol/L (-3-3) FiO2 35 Vancomycin Level Trough 14.3 mcg/mL (10.0-20.0) Vancomycin Last Dose Date Unk Vancomycin Last Dose Time Unk Glucose (Fingerstick) 127 mg/dL (70-99) 153 mg/dL (70-99) Test 09/25/18 06:25 09/25/18 07:40 White Blood Count 12.3 x10^3/uL (4.0-11.0) Red Blood Count 2.80 x10^6/uL (3.50-5.40) Hemoglobin 8.4 g/dL (12.0-15.5) Hematocrit 25.1 % (36.0-47.0) Mean Corpuscular Volume 89 fL (79-100) Mean Corpuscular Hemoglobin 30 pg (25-35) Mean Corpuscular Hemoglobin Concent 34 g/dL (31-37) Red Cell Distribution Width 17.2 % (11.5-14.5) Platelet Count 47 x10^3/uL (140-400) Neutrophils (%) (Auto) 87 % (31-73) Lymphocytes (%) (Auto) 7 % (24-48) Monocytes (%) (Auto) 5 % (0-9) Eosinophils (%) (Auto) 1 % (0-3) Basophils (%) (Auto) 0 % (0-3) Neutrophils # (Auto) 10.7 x10^3uL (1.8-7.7) Lymphocytes # (Auto) 0.9 x10^3/uL (1.0-4.8) Monocytes # (Auto) 0.6 x10^3/uL (0.0-1.1) Eosinophils # (Auto) 0.1 x10^3/uL (0.0-0.7) Basophils # (Auto) 0.0 x10^3/uL (0.0-0.2) Sodium Level 141 mmol/L (136-145) Potassium Level 3.0 mmol/L (3.5-5.1) Chloride Level 101 mmol/L (98-107) Carbon Dioxide Level 31 mmol/L (21-32) Anion Gap 9 (6-14) Blood Urea Nitrogen 37 mg/dL (7-20) Creatinine 1.8 mg/dL (0.6-1.0) Estimated GFR (Cockcroft-Gault) 28.3 Glucose Level 164 mg/dL (70-99) Calcium Level 7.1 mg/dL (8.5-10.1) Phosphorus Level 2.0 mg/dL (2.6-4.7) Magnesium Level 2.7 mg/dL (1.8-2.4) O2 Saturation 98 % (92-99) Arterial Blood pH 7.56 (7.35-7.45) Arterial Blood pCO2 at Patient Temp 29 mmHg (35-46) Arterial Blood pO2 at Patient Temp 106 mmHg (65-108) Arterial Blood HCO3 26 mmol/L (21-28) Arterial Blood Base Excess 4 mmol/L (-3-3) FiO2 35 Laboratory Tests Test 09/24/18 20:30 09/25/18 00:19 09/25/18 06:17 09/25/18 06:25 Vancomycin Level Trough 14.3 mcg/mL (10.0-20.0) Vancomycin Last Dose Date Unk Vancomycin Last Dose Time Unk Glucose (Fingerstick) 127 mg/dL (70-99) 153 mg/dL (70-99) White Blood Count 12.3 x10^3/uL (4.0-11.0) Red Blood Count 2.80 x10^6/uL (3.50-5.40) Hemoglobin 8.4 g/dL (12.0-15.5) Hematocrit 25.1 % (36.0-47.0) Mean Corpuscular Volume 89 fL (79-100) Mean Corpuscular Hemoglobin 30 pg (25-35) Mean Corpuscular Hemoglobin Concent 34 g/dL (31-37) Red Cell Distribution Width 17.2 % (11.5-14.5) Platelet Count 47 x10^3/uL (140-400) Neutrophils (%) (Auto) 87 % (31-73) Lymphocytes (%) (Auto) 7 % (24-48) Monocytes (%) (Auto) 5 % (0-9) Eosinophils (%) (Auto) 1 % (0-3) Basophils (%) (Auto) 0 % (0-3) Neutrophils # (Auto) 10.7 x10^3uL (1.8-7.7) Lymphocytes # (Auto) 0.9 x10^3/uL (1.0-4.8) Monocytes # (Auto) 0.6 x10^3/uL (0.0-1.1) Eosinophils # (Auto) 0.1 x10^3/uL (0.0-0.7) Basophils # (Auto) 0.0 x10^3/uL (0.0-0.2) Sodium Level 141 mmol/L (136-145) Potassium Level 3.0 mmol/L (3.5-5.1) Chloride Level 101 mmol/L (98-107) Carbon Dioxide Level 31 mmol/L (21-32) Anion Gap 9 (6-14) Blood Urea Nitrogen 37 mg/dL (7-20) Creatinine 1.8 mg/dL (0.6-1.0) Estimated GFR (Cockcroft-Gault) 28.3 Glucose Level 164 mg/dL (70-99) Calcium Level 7.1 mg/dL (8.5-10.1) Phosphorus Level 2.0 mg/dL (2.6-4.7) Magnesium Level 2.7 mg/dL (1.8-2.4) Test 09/25/18 07:40 O2 Saturation 98 % (92-99) Arterial Blood pH 7.56 (7.35-7.45) Arterial Blood pCO2 at Patient Temp 29 mmHg (35-46) Arterial Blood pO2 at Patient Temp 106 mmHg (65-108) Arterial Blood HCO3 26 mmol/L (21-28) Arterial Blood Base Excess 4 mmol/L (-3-3) FiO2 35 Medications Active Scripts Medications Dose Route/Sig Max Daily Dose Days Date Category [iron] 325 Mg PO 09/23/18 Reported Haloperidol 10 Mg Tablet 10 Mg PO QHS 09/23/18 Reported Ventolin Hfa Inhaler (Albuterol Sulfate) 18 Gm Hfa.aer.ad 2 Puff INH Q4HRS PRN 07/04/18 Reported Pristiq Er (Desvenlafaxine Succinate) 50 Mg Tab.er.24h 1 Tab PO DAILY 07/01/18 Reported Amitriptyline Hcl 25 Mg Tablet 1 Tab PO QHS 07/01/18 Reported Diazepam 5 Mg Tablet 5 Mg PO TID 07/01/18 Reported Gabapentin (Gabapentin) 300 Mg Capsule 300 Mg PO TID 07/01/18 Reported Impression . 1. Acute respiratory failure, multifactorial in etiology including shock, acute kidney injury 2. SEPTIC SHOCK 3. Abnormal CT of the chest with left lower lobe dense atelectasis/ PNEUMONIA 4. Acute kidney injury. 5. Electrolyte abnormality. 6. Gastrointestinal bleeding. 7. Hypotension. 8. Severe metabolic acidosis secondary to shock and acute kidney injury Plan . ADJUST MINUTE VENTILATION WEAL PRESSORS FOLLOW NEPHRO OF CRRT ALL CULTURES NEGATIVE CHANGE TO ZYVOX DVT GI PROPHYLAXIS TPN FOR NUTRITION D/W RT CCT 30 MIN TITO ZAPATA MD Sep 25, 2018 09:03
[2018-09-25] MEDS ORDERED: DEXTROSE 50% 25 GM / 50ML DISP.SYRIN. IV PRN (09:30)
[2018-09-25] MEDS: POTASSIUM CHL 20MEQ PREMIX 50 ML IV SCH ×2 (09:32→10:39)
--- NOTE | 2018-09-25 11:31 | PDOC ---
Objective: Objective: No bleeding per RN - liquid brown stool. TPN. Vital Signs: Vital Signs Date Time Temp Pulse Resp B/P (MAP) Pulse Ox O2 Delivery O2 Flow Rate FiO2 09/25/18 11:00 83 12 99/51 (67) 100 Ventilator 09/25/18 08:00 99.6 99.6 Labs: Laboratory Tests Test 09/24/18 20:30 09/25/18 00:19 09/25/18 06:17 09/25/18 06:25 Vancomycin Level Trough 14.3 mcg/mL Vancomycin Last Dose Date Unk Vancomycin Last Dose Time Unk Glucose (Fingerstick) 127 mg/dL 153 mg/dL White Blood Count 12.3 x10^3/uL Red Blood Count 2.80 x10^6/uL Hemoglobin 8.4 g/dL Hematocrit 25.1 % Mean Corpuscular Volume 89 fL Mean Corpuscular Hemoglobin 30 pg Mean Corpuscular Hemoglobin Concent 34 g/dL Red Cell Distribution Width 17.2 % Platelet Count 47 x10^3/uL Neutrophils (%) (Auto) 87 % Lymphocytes (%) (Auto) 7 % Monocytes (%) (Auto) 5 % Eosinophils (%) (Auto) 1 % Basophils (%) (Auto) 0 % Neutrophils # (Auto) 10.7 x10^3uL Lymphocytes # (Auto) 0.9 x10^3/uL Monocytes # (Auto) 0.6 x10^3/uL Eosinophils # (Auto) 0.1 x10^3/uL Basophils # (Auto) 0.0 x10^3/uL Sodium Level 141 mmol/L Potassium Level 3.0 mmol/L Chloride Level 101 mmol/L Carbon Dioxide Level 31 mmol/L Anion Gap 9 Blood Urea Nitrogen 37 mg/dL Creatinine 1.8 mg/dL Estimated GFR (Cockcroft-Gault) 28.3 Glucose Level 164 mg/dL Calcium Level 7.1 mg/dL Phosphorus Level 2.0 mg/dL Magnesium Level 2.7 mg/dL Test 09/25/18 07:40 O2 Saturation 98 % Arterial Blood pH 7.56 Arterial Blood pCO2 at Patient Temp 29 mmHg Arterial Blood pO2 at Patient Temp 106 mmHg Arterial Blood HCO3 26 mmol/L Arterial Blood Base Excess 4 mmol/L FiO2 35 Imaging: EGD 09/24 s/p gastric bypass with non-erosive grastitis PE: GEN: intubated HEENT: NG bilious LUNGS: vent ABD: soft NEURO/PSYCH: sedated A/P: MARII, resp failure, anemia/+fecal occult S/p gastric bypass -- EGD unrevealing for bleeding as above. Note drift in Hgb w/o obvious bleeding. Check anemia parameters. Other per Dr. Buckley. ZHOU BLANC Sep 25, 2018 11:31
[2018-09-25] MEDS: INSULIN LISPRO 300 UNITS/3 ML INSULN.PEN. SQ SCH ×3 (12:24→23:54)
[2018-09-25] MEDS: TPN PER PHARMACY MC PRN (12:35)
--- NOTE | 2018-09-25 12:36 | NUR ---
Pharmacy TPN Dosing Note S: ISABELL BUCIO is a 63 year old F Currently receiving Central Continuous TPN started 09/24/18 B:Pertinent PMH: Critical illness, suspected GIB Height: 5 feet, 0 inches Weight: 75.7 kg Current diet: npo LABS: Sodium: 141 Potassium: 3 Chloride: 101 Calcium: 7.1 Corrected Calcium: 8.22 Magnesium: 2.7 CO2: 31 SCr: 1.8 Glucose: 164, 157 Albumin: 2.6 AST: 80 ALT: 39 TPN FORMULA: TPN TYPE: Central Continuous AMINO ACIDS: 90 gm DEXTROSE: 195 gm LIPIDS: 20 gm SODIUM CHLORIDE: 45 mEq POTASSIUM ACETATE: 35 mEq POTASSIUM PHOSPHATE: 17 mmol MAGNESIUM: 5 mEq CALCIUM: 10 mEq MULTIPLE VITAMIN: 10 ml TRACE ELEMENTS: MTE5 ml TPN PLAN: -Serum potassium and phos low - increase KPhos and KCl cautiously. Patient no longer on CRRT. -Change NaAC to NaCl. -Serum magnesium high - reduce mag sulfate to 5 mEq/day. -BMP, mag, phos tomorrow. R: Continue TPN @ current rate and above formula. Will monitor electrolytes, glucose, and tolerance to TPN. LISBET POLO [facility], 09/25/18 [id number]
--- NOTE | 2018-09-25 12:45 | RAD ---
Procedure: Temporary hemodialysis catheter placement at the bedside. Clinical Indication: Adult female requiring hemodialysis Sedation: Local anesthesia only Antibiotics: None Fluoro Time: Not applicable Contrast: None Sterility: All elements of maximal sterile barrier technique including the use of a cap, mask, sterile gown, sterile gloves, large sterile sheet, appropriate hand hygiene, and 2% chlorhexidine for cutaneous antisepsis (or acceptable alternative antiseptic per current guidelines) were followed for this procedure. Consent: The procedure was explained in its entirety to the patient or the patients designated inbound call center representative by a member of the treatment team, including a discussion of the risks, benefits and commonly accepted alternatives to the procedure, as well as the expected consequences of no therapy whatsoever. Discussion of the risks included, but was not limited to, those that are most frequent and those that are rare but possibly severe or life-threatening, as well as the possibility of unforeseen complications. Technique and Findings: Following informed consent, the patient was prepped and draped in the usual sterile fashion. Ultrasound interrogation of the right neck revealed patency and compressibility of the right internal jugular vein. A 21-gauge micropuncture needle was used to gain access to this vein after 1% Lidocaine was used to achieve local anesthesia. A hardcopy ultrasound image was recorded. The needle was exchanged over a wire for serial dilators followed by a 20 cm Schon temporary hemodialysis catheter which was deployed in the expected location of the mid right atrium. The catheter flow rates were assessed manually and found to be excellent. The catheter was then flushed, packed with Heparin, capped, and sutured to the skin. Chest x-ray was then obtained to assess line position. Complications: No immediate Impression: 1. Ultrasound guided placement of a temporary hemodialysis catheter which exhibits excellent manual flow rates as described. Electronically signed by: Ajit Gill MD (09/25/2018 12:42 PM) [facility]
[2018-09-25] MEDS ORDERED: PANTOPRAZOLE IV PUSH 40 MG VIAL. IVP SCH (13:00)
--- NOTE | 2018-09-25 13:44 | PDOC ---
Renal-Progress Notes Subjective Notes Notes REMAINS IN THE ICU History of Present Illness Hx of present illness NO CHANGE Vitals Vitals Vital Signs Date Time Temp Pulse Resp B/P (MAP) Pulse Ox O2 Delivery O2 Flow Rate FiO2 09/25/18 13:12 100 Ventilator 09/25/18 12:00 99.1 90 12 117/55 (75) 99.1 Weight Weight [ ] I.O. Intake and Output Intake and Output 09/25/18 06:59 Intake Total 1443 ml Output Total 510 ml Balance 933 ml Intake Oral 0 ml IV Total 1443 ml Output Urine Total 465 ml Oral Regurgitation 45 ml Labs Labs Laboratory Tests Test 09/24/18 20:30 09/25/18 00:19 09/25/18 06:17 09/25/18 06:25 Vancomycin Level Trough 14.3 mcg/mL (10.0-20.0) Vancomycin Last Dose Date Unk Vancomycin Last Dose Time Unk Glucose (Fingerstick) 127 mg/dL (70-99) 153 mg/dL (70-99) White Blood Count 12.3 x10^3/uL (4.0-11.0) Red Blood Count 2.80 x10^6/uL (3.50-5.40) Hemoglobin 8.4 g/dL (12.0-15.5) Hematocrit 25.1 % (36.0-47.0) Mean Corpuscular Volume 89 fL (79-100) Mean Corpuscular Hemoglobin 30 pg (25-35) Mean Corpuscular Hemoglobin Concent 34 g/dL (31-37) Red Cell Distribution Width 17.2 % (11.5-14.5) Platelet Count 47 x10^3/uL (140-400) Neutrophils (%) (Auto) 87 % (31-73) Lymphocytes (%) (Auto) 7 % (24-48) Monocytes (%) (Auto) 5 % (0-9) Eosinophils (%) (Auto) 1 % (0-3) Basophils (%) (Auto) 0 % (0-3) Neutrophils # (Auto) 10.7 x10^3uL (1.8-7.7) Lymphocytes # (Auto) 0.9 x10^3/uL (1.0-4.8) Monocytes # (Auto) 0.6 x10^3/uL (0.0-1.1) Eosinophils # (Auto) 0.1 x10^3/uL (0.0-0.7) Basophils # (Auto) 0.0 x10^3/uL (0.0-0.2) Reticulocyte Count (auto) 1.8 % (0.5-2.5) Sodium Level 141 mmol/L (136-145) Potassium Level 3.0 mmol/L (3.5-5.1) Chloride Level 101 mmol/L (98-107) Carbon Dioxide Level 31 mmol/L (21-32) Anion Gap 9 (6-14) Blood Urea Nitrogen 37 mg/dL (7-20) Creatinine 1.8 mg/dL (0.6-1.0) Estimated GFR (Cockcroft-Gault) 28.3 Glucose Level 164 mg/dL (70-99) Calcium Level 7.1 mg/dL (8.5-10.1) Phosphorus Level 2.0 mg/dL (2.6-4.7) Magnesium Level 2.7 mg/dL (1.8-2.4) Iron Level 24 ug/dL (50-170) Total Iron Binding Capacity 232 ug/dL (250-450) Iron Saturation 10 % (15-34) Vitamin B12 Level 1022 pg/mL (247-911) Test 09/25/18 07:40 09/25/18 12:09 O2 Saturation 98 % (92-99) Arterial Blood pH 7.56 (7.35-7.45) Arterial Blood pCO2 at Patient Temp 29 mmHg (35-46) Arterial Blood pO2 at Patient Temp 106 mmHg (65-108) Arterial Blood HCO3 26 mmol/L (21-28) Arterial Blood Base Excess 4 mmol/L (-3-3) FiO2 35 Glucose (Fingerstick) 157 mg/dL (70-99) Micro Micro Microbiology 09/22/18 Blood Culture - Preliminary, Resulted NO GROWTH AFTER 2 DAYS 09/22/18 Urine Culture - Final, Complete 09/22/18 Urine Culture Result 1 (MELODY) - Final, Complete Review of Systems Constitutional: yes: unresponsive Physical Exam General Appearance: no apparent distress Skin: warm Respiratory: decreased breath sounds Heart: S1S2, RRR Abdomen: soft, bowel sounds present Genitourinary: bladder flat Extremities: pulses present Neurology: confused, other (SEDATED) Assessment Assessment IMP MARII-CR WORSE ACUTE RESP FAILURE SHOCK-SEPSIS HYPOVOLEMIA ? PNEUMONIA ANEMIA ?GIB MET ACIDOSIS-RESOLVED ALKALEMIA ANEMIA PLAN PT REMAINS IN THE ICU HOLD HER CRRT FOR NOW MAY NEED IHD TOMORROW ANTIBIOTICS PRESSORS NEEDED OFF HCO3 GTT TPN FOR NOW REPLACE K MACKENZIE NOGUERA MD Sep 25, 2018 13:44
--- NOTE | 2018-09-25 14:07 | NUR ---
Notified cardiology of decreased urine output less than 30ml/hr. Held aayush this am per RASHEL Gandara due to blood pressure issues this am. Cardiology currently on unit and placing orders. Will continue to monitor. Addendum: 09/26/18 at 1020 by NUZHAT ARAMBULA RN Wrong patient
[2018-09-25] MEDS ORDERED: SODIUM PHOSPHATE 10 MMOL in IV DEXTROSE 5% 250 ML IV ONE (16:00)
[2018-09-25] MEDS: MIDAZOLAM 100mg/100ml NS BAG 100 ML IV PRN (19:41)
[2018-09-25] MEDS: FAMOTIDINE 20 MG/2 ML VIAL IVP SCH (21:08)
[2018-09-25] MEDS ORDERED: [UNRECOGNIZED DRUG - OTHER] IV SCH ×10 (22:00)
[2018-09-25] MEDS ORDERED: DEXTROSE 70% IV SCH ×10 (22:00)
[2018-09-25] MEDS ORDERED: TOTAL PARENTERAL NUTRITION IV SCH ×10 (22:00)
[2018-09-25] MEDS ORDERED: AMINO ACID IV SCH ×10 (22:00)
[2018-09-26] VITALS (27 sets, daily range): BP systolic 82–163; BP diastolic 43–81
[2018-09-26] MEDS: INSULIN LISPRO 300 UNITS/3 ML INSULN.PEN. SQ SCH ×4 (06:00→23:33)
[2018-09-26] MEDS: PIPERACILLIN/TAZOBACTAM 3.375 GM in IV NORMAL SALINE 50ML 50 ML IV SCH ×4 (06:00→23:39)
[2018-09-26 06:25] LABS: HEMATOCRIT 25.1 % (36.0-47.0); HEMOGLOBIN 8.3 g/dL (12.0-15.5); RED BLOOD COUNT 2.75 x10^6/uL (3.50-5.40); RED CELL DISTRIBUTION WIDTH 18.1 % (11.5-14.5); WHITE BLOOD COUNT 10.5 x10^3/uL (4.0-11.0)
[2018-09-26 06:40] LABS: CREATININE 1.4 mg/dL (0.6-1.0); GFR 37.9; MAGNESIUM 2.3 mg/dL (1.8-2.4); PHOSPHORUS 2.5 mg/dL (2.6-4.7); POTASSIUM 3.9 mmol/L (3.5-5.1)
--- NOTE | 2018-09-26 09:02 | PDOC ---
PROGRESS NOTES Subjective Subjective Patient sedated, on vent. Objective Objective Vital Signs Date Time Temp Pulse Resp B/P (MAP) Pulse Ox O2 Delivery O2 Flow Rate FiO2 09/26/18 08:24 Ventilator 09/26/18 07:29 100 09/26/18 07:15 78 85/48 (60) 09/26/18 07:00 12 09/26/18 04:00 98.5 98.5 Intake and Output 09/26/18 07:00 Intake Total 1332.67 ml Output Total 2570 ml Balance -1237.33 ml IV Total 1332.67 ml Output Urine Total 2570 ml # Bowel Movements 1 Physical Exam Abdomen: Normal bowel sounds, Soft, No tenderness Heart: Regular rate Extremities: No edema General: No acute distress Lungs: Clear to auscultation (anteriorly) Plan Plan of Care 1. Metabolic acidosis with acute renal failure - much improved, stable off CRRT. Continue management per Renal. 2. acute respiratory failure with possible pneumonia - stable, continue tx per Pulmonary. Needing very small amount of pressors to maintain BP now. 3. GI bleed - Hgb stable, platelets still low but stable. 4. nutrition - continue TPN. SS insulin for mildly hyperglycemia. 5. schizophrenia/bipolar mood disorder - resume home meds per OG tube. Comment Review of Relevant I have reviewed the following items michelle (where applicable) has been applied. Labs Laboratory Tests Test 09/24/18 20:30 09/25/18 00:19 09/25/18 06:17 09/25/18 06:25 Vancomycin Level Trough 14.3 mcg/mL (10.0-20.0) Vancomycin Last Dose Date Unk Vancomycin Last Dose Time Unk Glucose (Fingerstick) 127 mg/dL (70-99) 153 mg/dL (70-99) White Blood Count 12.3 x10^3/uL (4.0-11.0) Red Blood Count 2.80 x10^6/uL (3.50-5.40) Hemoglobin 8.4 g/dL (12.0-15.5) Hematocrit 25.1 % (36.0-47.0) Mean Corpuscular Volume 89 fL (79-100) Mean Corpuscular Hemoglobin 30 pg (25-35) Mean Corpuscular Hemoglobin Concent 34 g/dL (31-37) Red Cell Distribution Width 17.2 % (11.5-14.5) Platelet Count 47 x10^3/uL (140-400) Neutrophils (%) (Auto) 87 % (31-73) Lymphocytes (%) (Auto) 7 % (24-48) Monocytes (%) (Auto) 5 % (0-9) Eosinophils (%) (Auto) 1 % (0-3) Basophils (%) (Auto) 0 % (0-3) Neutrophils # (Auto) 10.7 x10^3uL (1.8-7.7) Lymphocytes # (Auto) 0.9 x10^3/uL (1.0-4.8) Monocytes # (Auto) 0.6 x10^3/uL (0.0-1.1) Eosinophils # (Auto) 0.1 x10^3/uL (0.0-0.7) Basophils # (Auto) 0.0 x10^3/uL (0.0-0.2) Reticulocyte Count (auto) 1.8 % (0.5-2.5) Sodium Level 141 mmol/L (136-145) Potassium Level 3.0 mmol/L (3.5-5.1) Chloride Level 101 mmol/L (98-107) Carbon Dioxide Level 31 mmol/L (21-32) Anion Gap 9 (6-14) Blood Urea Nitrogen 37 mg/dL (7-20) Creatinine 1.8 mg/dL (0.6-1.0) Estimated GFR (Cockcroft-Gault) 28.3 Glucose Level 164 mg/dL (70-99) Calcium Level 7.1 mg/dL (8.5-10.1) Phosphorus Level 2.0 mg/dL (2.6-4.7) Magnesium Level 2.7 mg/dL (1.8-2.4) Iron Level 24 ug/dL (50-170) Total Iron Binding Capacity 232 ug/dL (250-450) Iron Saturation 10 % (15-34) Vitamin B12 Level 1022 pg/mL (247-911) Test 09/25/18 07:40 09/25/18 12:09 09/25/18 18:09 09/25/18 23:50 O2 Saturation 98 % (92-99) Arterial Blood pH 7.56 (7.35-7.45) Arterial Blood pCO2 at Patient Temp 29 mmHg (35-46) Arterial Blood pO2 at Patient Temp 106 mmHg (65-108) Arterial Blood HCO3 26 mmol/L (21-28) Arterial Blood Base Excess 4 mmol/L (-3-3) FiO2 35 Glucose (Fingerstick) 157 mg/dL (70-99) 109 mg/dL (70-99) 168 mg/dL (70-99) Test 09/26/18 06:17 09/26/18 06:21 Glucose (Fingerstick) 130 mg/dL (70-99) White Blood Count 10.5 x10^3/uL (4.0-11.0) Red Blood Count 2.75 x10^6/uL (3.50-5.40) Hemoglobin 8.3 g/dL (12.0-15.5) Hematocrit 25.1 % (36.0-47.0) Mean Corpuscular Volume 91 fL (79-100) Mean Corpuscular Hemoglobin 30 pg (25-35) Mean Corpuscular Hemoglobin Concent 33 g/dL (31-37) Red Cell Distribution Width 18.1 % (11.5-14.5) Platelet Count 49 x10^3/uL (140-400) Sodium Level 146 mmol/L (136-145) Potassium Level 3.9 mmol/L (3.5-5.1) Chloride Level 107 mmol/L (98-107) Carbon Dioxide Level 32 mmol/L (21-32) Anion Gap 7 (6-14) Blood Urea Nitrogen 36 mg/dL (7-20) Creatinine 1.4 mg/dL (0.6-1.0) Estimated GFR (Cockcroft-Gault) 37.9 Glucose Level 141 mg/dL (70-99) Calcium Level 7.0 mg/dL (8.5-10.1) Phosphorus Level 2.5 mg/dL (2.6-4.7) Magnesium Level 2.3 mg/dL (1.8-2.4) Laboratory Tests Test 09/25/18 12:09 09/25/18 18:09 09/25/18 23:50 09/26/18 06:17 Glucose (Fingerstick) 157 mg/dL (70-99) 109 mg/dL (70-99) 168 mg/dL (70-99) 130 mg/dL (70-99) Test 09/26/18 06:21 White Blood Count 10.5 x10^3/uL (4.0-11.0) Red Blood Count 2.75 x10^6/uL (3.50-5.40) Hemoglobin 8.3 g/dL (12.0-15.5) Hematocrit 25.1 % (36.0-47.0) Mean Corpuscular Volume 91 fL (79-100) Mean Corpuscular Hemoglobin 30 pg (25-35) Mean Corpuscular Hemoglobin Concent 33 g/dL (31-37) Red Cell Distribution Width 18.1 % (11.5-14.5) Platelet Count 49 x10^3/uL (140-400) Sodium Level 146 mmol/L (136-145) Potassium Level 3.9 mmol/L (3.5-5.1) Chloride Level 107 mmol/L (98-107) Carbon Dioxide Level 32 mmol/L (21-32) Anion Gap 7 (6-14) Blood Urea Nitrogen 36 mg/dL (7-20) Creatinine 1.4 mg/dL (0.6-1.0) Estimated GFR (Cockcroft-Gault) 37.9 Glucose Level 141 mg/dL (70-99) Calcium Level 7.0 mg/dL (8.5-10.1) Phosphorus Level 2.5 mg/dL (2.6-4.7) Magnesium Level 2.3 mg/dL (1.8-2.4) Microbiology 09/22/18 Blood Culture - Preliminary, Resulted NO GROWTH AFTER 3 DAYS 09/22/18 Urine Culture - Final, Complete 09/22/18 Urine Culture Result 1 (MELODY) - Final, Complete Medications Current Medications Sodium Chloride 1,000 ml @ 1,000 mls/hr 1X ONCE IV Last administered on at 17:18; Start 09/22/18 at 17:15; Stop 09/22/18 at 18:14; Status DC Pantoprazole Sodium 80 mg/ Sodium Chloride 100 ml @ 10 mls/hr Q10H IV Last administered on 09/24/18at 05:46; Start 09/22/18 at 17:15; Stop 09/24/18 at 15:43 ; Status DC Pantoprazole Sodium (PROTONIX VIAL for IV PUSH) 80 mg 1X ONCE IVP Last administered on 09/22/18at 17:39; Start 09/22/18 at 17:15; Stop 09/22/18 at 17:17 ; Status DC Ceftriaxone Sodium (Rocephin) 1 gm 1X ONCE IVP ; Start 09/22/18 at 17:30; Stop 09/22/18 at 17:30; Status DC Sodium Chloride 1,000 ml @ 1,000 mls/hr 1X ONCE IV Last administered on at 17:27; Start 09/22/18 at 17:30; Stop 09/22/18 at 18:29; Status DC Vancomycin HCl (Vanco Per Pharmacy) 1 each PRN DAILY PRN MC SEE COMMENTS Last administered on 09/24/18at 21:37; Start 09/22/18 at 17:30; Stop 09/25/18 at 12:02 ; Status DC Piperacillin Sod/ Tazobactam Sod (Zosyn Per Pharmacy) 1 each PRN DAILY PRN MC SEE COMMENTS; Start 09/22/18 at 17:30 Piperacillin Sod/ Tazobactam Sod 3.375 gm/Sodium Chloride 50 ml @ 100 mls/hr 1X ONCE IV Last administered on 09/22/18at 18:04; Start 09/22/18 at 17:30; Stop 09/22/18 at 17:59; Status DC Vancomycin HCl 1.75 gm/Sodium Chloride 500 ml @ 250 mls/hr 1X ONCE IV Last administered on 09/22/18at 23:28; Start 09/22/18 at 17:30; Stop 09/22/18 at 19:29 ; Status DC Sodium Bicarbonate (Sodium Bicarb Adult 8.4% Syr) 50 meq 1X ONCE IV Last administered on 09/22/18at 18:03; Start 09/22/18 at 17:45; Stop 09/22/18 at 17:46 ; Status DC Norepinephrine Bitartrate 250 ml @ 0 mls/hr 1X ONCE IV Last administered on at 17:51; Start 09/22/18 at 17:45; Stop 09/22/18 at 17:46; Status DC Sodium Bicarbonate 150 meq/Sterile Water 1,150 ml @ 125 mls/hr 1X ONCE IV Last administered on 09/22/18at 18:30; Start 09/22/18 at 18:30; Stop 09/23/18 at 03:41; Status DC Piperacillin Sod/ Tazobactam Sod 3.375 gm/Sodium Chloride 50 ml @ 100 mls/hr Q6HRS IV Last administered on 09/26/18at 06:00; Start 09/23/18 at 00:00 Vasopressin 40 unit/Dextrose 102 ml @ 6 mls/hr CONT PRN IV SEE I/O RECORD Last administered on 09/24/18at 12:53; Start 09/22/18 at 18:45 Fentanyl Citrate (Fentanyl 2ml Vial) 50 mcg 1X ONCE IV ; Start 09/22/18 at 19: 00; Stop 09/22/18 at 19:01; Status DC Midazolam HCl 100 ml @ 5 mls/hr CONT PRN IV SEE I/O RECORD Last administered on 09/25/18at 19:41; Start 09/22/18 at 19:00 Lidocaine/Sodium Bicarbonate (Buffered Lidocaine 1%) 4 ml 1X ONCE INJ Last administered on 09/22/18at 19:15; Start 09/22/18 at 19:15; Stop 09/22/18 at 19:18 ; Status DC Heparin Sodium (Porcine) (Heparin Sodium) 2,500 unit 1X ONCE INT CAT Last administered on 09/22/18at 19:15; Start 09/22/18 at 19:15; Stop 09/22/18 at 19:18 ; Status DC Heparin Sodium (Porcine) (Heparin Sodium) 10,000 unit STK-MED ONCE .ROUTE ; Start 09/22/18 at 19:17; Stop 09/22/18 at 19:18; Status DC Sodium Bicarbonate 40 meq/Potassium Chloride 15 meq/ Magnesium Sulfate 5 meq/ Calcium Chloride 2.5 meq/ Bicarbonate Dialysis Soln w/ out KCl 5,050.5172 ml @ 1 ,000 mls/hr Q5H4M IV Last administered on 09/23/18at 05:02; Start 09/22/18 at 22 :00; Stop 09/23/18 at 08:43; Status DC Sodium Bicarbonate 40 meq/Potassium Chloride 15 meq/ Magnesium Sulfate 5 meq/ Calcium Chloride 2.5 meq/ Bicarbonate Dialysis Soln w/ out KCl 5,050.5172 ml @ 1 ,000 mls/hr Q5H4M IV Last administered on 09/23/18at 05:02; Start 09/22/18 at 22 :00; Stop 09/23/18 at 08:43; Status DC Sodium Bicarbonate 150 meq/Sterile Water 1,150 ml @ 300 mls/hr Q3H50M IV Last administered on 09/24/18at 05:45; Start 09/22/18 at 22:00; Stop 09/24/18 at 15:44 ; Status DC Etomidate (Amidate) 20 mg STK-MED ONCE IV ; Start 09/22/18 at 20:36; Stop at 20:37; Status DC Rocuronium [place] (Zemuron) 50 mg STK-MED ONCE .ROUTE ; Start 09/22/18 at 20:36 ; Stop 09/22/18 at 20:37; Status DC Norepinephrine Bitartrate 250 ml @ 1.875 mls/ hr CONT PRN IV SEE I/O RECORD Last administered on 09/24/18at 12:54; Start 09/22/18 at 23:30 Fentanyl Citrate (Fentanyl 2ml Vial) 50 mcg PRN Q1HR PRN IV PAIN Last administered on 09/23/18at 23:48; Start 09/22/18 at 23:30 Epinephrine HCl 4 mg/Sodium Chloride 254 ml @ 26.44 mls/ hr CONT PRN IV SEE I/ O RECORD; Start 09/23/18 at 02:15 Albuterol/ Ipratropium (Duoneb) 3 ml RTQID NEB Last administered on 09/25/18at 19:26; Start 09/23/18 at 08:00 Sodium Bicarbonate 40 meq/Potassium Chloride 15 meq/ Magnesium Sulfate 5 meq/ Calcium Chloride 17.5 meq/ Bicarbonate Dialysis Soln w/ out KCl 5,061.2315 ml @ 1,000 mls/hr Q5H4M IV Last administered on 09/23/18at 10:13; Start 09/23/18 at 10:00; Stop 09/23/18 at 10:32; Status DC Sodium Bicarbonate 40 meq/Potassium Chloride 15 meq/ Magnesium Sulfate 5 meq/ Calcium Chloride 17.5 meq/ Bicarbonate Dialysis Soln w/ out KCl 5,061.2315 ml @ 1,000 mls/hr Q5H4M IV Last administered on 09/23/18at 10:12; Start 09/23/18 at 10:00; Stop 09/23/18 at 10:33; Status DC Sodium Bicarbonate 40 meq/Potassium Chloride 15 meq/ Magnesium Sulfate 5 meq/ Calcium Chloride 5 meq/ Bicarbonate Dialysis Soln w/ out KCl 5,052.3029 ml @ 1, 000 mls/hr Q5H4M IV Last administered on 09/23/18at 15:40; Start 09/23/18 at 11: 00; Stop 09/23/18 at 19:28; Status DC Sodium Bicarbonate 40 meq/Potassium Chloride 15 meq/ Magnesium Sulfate 5 meq/ Calcium Chloride 5 meq/ Bicarbonate Dialysis Soln w/ out KCl 5,052.3029 ml @ 1, 000 mls/hr Q5H4M IV Last administered on 09/23/18at 15:39; Start 09/23/18 at 10: 45; Stop 09/23/18 at 19:28; Status DC Vancomycin HCl 1 gm/Sodium Chloride 250 ml @ 250 mls/hr Q24H IV Last administered on 09/24/18at 21:38; Start 09/23/18 at 21:00; Stop 09/25/18 at 12:02 ; Status DC Vancomycin HCl (Vancomycin Trough Level) 1 each 1X ONCE MC Last administered on 09/24/18at 20:30; Start 09/24/18 at 20:30; Stop 09/24/18 at 20:31; Status DC Potassium Chloride 15 meq/ Magnesium Sulfate 5 meq/Calcium Chloride 5 meq/ Bicarbonate Dialysis Soln w/ out KCl 5,012.3029 ml @ 1,000 mls/hr Q5H1M IV Last administered on 09/23/18at 23:50; Start 09/23/18 at 20:30; Stop 09/24/18 at 04:06; Status DC Potassium Chloride 35 meq/ Magnesium Sulfate 5 meq/Calcium Chloride 5 meq/ Bicarbonate Dialysis Soln w/ out KCl 5,022.3029 ml @ 1,000 mls/hr Q5H2M IV Last administered on 09/23/18at 23:49; Start 09/23/18 at 20:30; Stop 09/24/18 at 04:06; Status DC Fentanyl Citrate 30 ml @ 0 mls/hr CONT PRN IV SEE PROTOCOL Last administered on 09/26/18at 08:24; Start 09/23/18 at 22:30 Chlorhexidine Gluconate (Peridex) 15 ml BID MM Last administered on 09/24/18at 21:41; Start 09/24/18 at 09:00; Stop 09/25/18 at 09:30; Status DC Potassium Chloride 15 meq/ Magnesium Sulfate 2.5 meq/Calcium Chloride 5 meq/ Bicarbonate Dialysis Soln w/ out KCl 5,011.6871 ml @ 1,000 mls/hr Q5H1M IV Last administered on 09/24/18at 04:34; Start 09/24/18 at 04:30; Stop 09/24/18 at 17:00; Status DC Potassium Chloride 35 meq/ Magnesium Sulfate 2.5 meq/Calcium Chloride 5 meq/ Bicarbonate Dialysis Soln w/ out KCl 5,021.6871 ml @ 1,000 mls/hr Q5H2M IV Last administered on 09/24/18at 04:34; Start 09/24/18 at 04:30; Stop 09/24/18 at 17:00; Status DC Sodium Chloride 90 meq/Potassium Chloride 50 meq/ Potassium Phosphate 13.6 mmol/ Magnesium Sulfate 10 meq/ Calcium Gluconate 10 meq/ Multivitamins 10 ml/Chromium / Copper/Manganese/ Seleni/Zn 1 ml/ Total Parenteral Nutrition/Amino Acids/ Dextrose/ Fat Emulsion Intravenous 87.0013 ml @ 3.625 mls/hr TPN CONT IV ; Start 09/24/18 at 22:00; Stop 09/25/18 at 21:59; Status UNV Info (Tpn Per Pharmacy) 1 each PRN DAILY PRN MC SEE COMMENTS Last administered on 09/25/18at 12:35; Start 09/24/18 at 08:15 Sodium Acetate 45 meq/Potassium Acetate 25 meq/ Potassium Phosphate 13.6 mmol/ Magnesium Sulfate 10 meq/ Calcium Gluconate 10 meq/ Multivitamins 10 ml/Chromium / Copper/Manganese/ Seleni/Zn 1 ml/ Total Parenteral Nutrition/Amino Acids/ Dextrose/ Fat Emulsion Intravenous 1,422 ml @ 59.25 mls/ hr TPN CONT IV Last administered on 09/24/18at 22:50; Start 09/24/18 at 22:00; Stop 09/25/18 at 21:59 ; Status DC Potassium Chloride/Water 50 ml @ 50 mls/hr Q1H IV Last administered on at 10:39; Start 09/25/18 at 09:00; Stop 09/25/18 at 10:59; Status DC Insulin Human Lispro (HumaLOG) 0-5 UNITS Q6HRS SQ Last administered on at 12:24; Start 09/25/18 at 12:00 Dextrose (Dextrose 50%-Water Syringe) 12.5 gm PRN Q15MIN PRN IV SEE COMMENTS; Start 09/25/18 at 09:30 Famotidine (Pepcid Vial) 20 mg QHS IVP Last administered on 09/25/18at 21:08; Start 09/25/18 at 21:00 Linezolid/Dextrose 300 ml @ 300 mls/hr Q12HR IV Last administered on at 08:24; Start 09/25/18 at 13:00 Pantoprazole Sodium (PROTONIX VIAL for IV PUSH) 40 mg DAILYAC IVP ; Start at 13:00; Stop 09/25/18 at 13:00; Status DC Sodium Chloride 45 meq/Potassium Acetate 35 meq/ Potassium Phosphate 17 mmol/ Magnesium Sulfate 5 meq/Calcium Gluconate 10 meq/ Multivitamins 10 ml/Chromium/ Copper/Manganese/ Seleni/Zn 1 ml/ Total Parenteral Nutrition/Amino Acids/ Dextrose/ Fat Emulsion Intravenous 1,512 ml @ 63 mls/hr TPN CONT IV Last administered on 09/25/18at 22:10; Start 09/25/18 at 22:00; Stop 09/26/18 at 21:59 Sodium Phosphate 10 mmol/Dextrose 253.3333 ml @ 63.333 m... 1X ONCE IV Last administered on 09/25/18at 16:16; Start 09/25/18 at 16:00; Stop 09/25/18 at 19:59 ; Status DC Active Scripts Active Reported [iron] 325 Mg PO Haloperidol 10 Mg Tablet 10 Mg PO QHS Ventolin Hfa Inhaler (Albuterol Sulfate) 18 Gm Hfa.aer.ad 2 Puff INH Q4HRS PRN Pristiq Er (Desvenlafaxine Succinate) 50 Mg Tab.er.24h 1 Tab PO DAILY Amitriptyline Hcl 25 Mg Tablet 1 Tab PO QHS Diazepam 5 Mg Tablet 5 Mg PO TID Gabapentin (Gabapentin) 300 Mg Capsule 300 Mg PO TID Vitals/I & O Vital Sign - Last 24 Hours 09/25/18 09/25/18 09/25/18 09/25/18 09:00 09:33 10:00 11:00 Pulse 86 84 83 Resp 14 13 12 B/P (MAP) 101/49 (66) 96/45 (62) 99/51 (67) Pulse Ox 100 100 100 O2 Delivery Ventilator Ventilator Ventilator Ventilator 09/25/18 09/25/18 09/25/18 09/25/18 11:31 12:00 12:00 13:00 Temp 99.1 99.1 Pulse 90 88 Resp 12 12 B/P (MAP) 117/55 (75) 104/51 (68) Pulse Ox 100 100 100 O2 Delivery Ventilator Mechanical Ventilator Ventilator Ventilator 09/25/18 09/25/18 09/25/18 09/25/18 13:12 14:00 15:00 15:29 Pulse 82 77 Resp 12 12 B/P (MAP) 110/56 (74) 102/52 (69) Pulse Ox 100 100 100 100 O2 Delivery Ventilator Ventilator Ventilator Ventilator 09/25/18 09/25/18 09/25/18 09/25/18 16:00 16:00 17:00 17:30 Temp 99.1 99.1 Pulse 76 70 Resp 12 12 B/P (MAP) 118/62 (80) 119/57 (77) Pulse Ox 100 100 100 O2 Delivery Ventilator Mechanical Ventilator Ventilator Ventilator 09/25/18 09/25/18 09/25/18 09/25/18 18:00 19:00 19:27 20:00 Pulse 83 81 Resp 12 12 B/P (MAP) 122/60 (80) 155/70 (98) Pulse Ox 100 100 100 O2 Delivery Ventilator Ventilator Ventilator Mechanical Ventilator 09/25/18 09/25/18 09/25/18 09/25/18 20:00 20:38 20:48 21:00 Temp 98.7 98.7 Pulse 74 74 80 Resp 12 13 12 B/P (MAP) 105/47 (66) 181/82 (115) 107/54 (71) Pulse Ox 100 100 100 100 O2 Delivery Ventilator Ventilator Ventilator Ventilator 09/25/18 09/25/18 09/25/18 09/25/18 21:05 21:09 22:00 23:00 Pulse 74 76 Resp 12 12 B/P (MAP) 107/54 (71) 116/54 (74) Pulse Ox 100 100 100 100 O2 Delivery Ventilator Ventilator Ventilator 09/25/18 09/25/18 09/25/18 09/26/18 23:20 23:59 23:59 01:00 Temp 98.5 98.5 Pulse 78 74 Resp 12 12 B/P (MAP) 114/54 (74) 109/60 (76) Pulse Ox 100 100 100 O2 Delivery Ventilator Mechanical Ventilator Ventilator Ventilator 09/26/18 09/26/18 09/26/18 09/26/18 01:05 01:30 01:45 02:00 Pulse 78 88 74 Resp 14 12 12 B/P (MAP) 100/76 (84) 100/80 (87) 82/43 (56) Pulse Ox 100 100 100 100 O2 Delivery Ventilator Ventilator Ventilator Ventilator 09/26/18 09/26/18 09/26/18 09/26/18 03:00 03:00 04:00 04:00 Temp 98.5 98.5 Pulse 76 75 Resp 12 12 B/P (MAP) 89/46 (60) 91/47 (62) Pulse Ox 100 100 100 O2 Delivery Ventilator Ventilator Mechanical Ventilator Ventilator 09/26/18 09/26/18 09/26/18 09/26/18 04:54 05:00 06:00 07:00 Pulse 75 76 76 Resp 14 16 12 B/P (MAP) 90/45 (60) 89/45 (60) 98/52 (67) Pulse Ox 100 100 100 100 O2 Delivery Ventilator Ventilator Ventilator Ventilator 09/26/18 09/26/18 09/26/18 07:15 07:29 08:24 Pulse 78 B/P (MAP) 85/48 (60) Pulse Ox 100 O2 Delivery Ventilator Ventilator Intake and Output 09/25/18 09/25/18 09/26/18 15:00 23:00 07:00 Intake Total 450 ml 882.67 ml Output Total 805 ml 890 ml 875 ml Balance -355 ml -7.33 ml -875 ml MILY COOK MD Sep 26, 2018 09:02
--- NOTE | 2018-09-26 09:14 | RAD ---
PORTABLE CHEST 1V Clinical indications: INTUBATION follow-up study. COMPARISON: September 23, 2018. Findings: There've been no interval tube or line changes. Previously seen left lung base atelectasis has resolved No new lung infiltrate or pleural effusion or pulmonary edema or lung mass or pneumothorax is seen. The heart size, pulmonary vasculature, mediastinum and both lulu are stable. Impression: Resolution of left lung base atelectasis. No new abnormality. Electronically signed by: Collin Morales MD (09/26/2018 9:10 AM) [facility]
--- NOTE | 2018-09-26 09:29 | NUR ---
SS following up with discharge planning. Pt continues on the Vent. Pt's RN and physician notified that pt would qualify for LTAC at [facility] if needed. SS will continue to follow for discharge planning.
--- NOTE | 2018-09-26 09:34 | PDOC ---
Objective: Objective: RN asks about giving meds through OG. No bleeding. Vital Signs: Vital Signs Date Time Temp Pulse Resp B/P (MAP) Pulse Ox O2 Delivery O2 Flow Rate FiO2 09/26/18 09:13 Ventilator 09/26/18 09:04 100 09/26/18 09:00 79 12 99/54 (69) 09/26/18 08:00 98.6 98.6 Labs: Laboratory Tests Test 09/25/18 12:09 09/25/18 18:09 09/25/18 23:50 09/26/18 06:17 Glucose (Fingerstick) 157 mg/dL 109 mg/dL 168 mg/dL 130 mg/dL Test 09/26/18 06:21 White Blood Count 10.5 x10^3/uL Red Blood Count 2.75 x10^6/uL Hemoglobin 8.3 g/dL Hematocrit 25.1 % Mean Corpuscular Volume 91 fL Mean Corpuscular Hemoglobin 30 pg Mean Corpuscular Hemoglobin Concent 33 g/dL Red Cell Distribution Width 18.1 % Platelet Count 49 x10^3/uL Sodium Level 146 mmol/L Potassium Level 3.9 mmol/L Chloride Level 107 mmol/L Carbon Dioxide Level 32 mmol/L Anion Gap 7 Blood Urea Nitrogen 36 mg/dL Creatinine 1.4 mg/dL Estimated GFR (Cockcroft-Gault) 37.9 Glucose Level 141 mg/dL Calcium Level 7.0 mg/dL Phosphorus Level 2.5 mg/dL Magnesium Level 2.3 mg/dL BLOOD CULTURE Preliminary NO GROWTH AFTER 3 DAYS Imaging: CXR 09/26 Impression: Resolution of left lung base atelectasis. No new abnormality. PE: GEN: intubated HEENT: OG LUNGS: vent ABD: soft, non-distended, quiet NEURO/PSYCH: sedated A/P: MARII (better), resp failure Anemia (stable), thrombocytopenia S/p gastric bypass, + fecal occult - EGD w/ non-erosive gastritis, on TPN, has OGT -- Okay for meds through tube. Iron sat was 10 - ?add iron - will review w/ Dr. Buckley. ZHOU BLANC Sep 26, 2018 09:34
--- NOTE | 2018-09-26 09:45 | PDOC ---
PULMONARY PROGRESS NOTES Subjective AC MODE ON LEVO LOW DOSE Vitals Vital Signs Date Time Temp Pulse Resp B/P (MAP) Pulse Ox O2 Delivery O2 Flow Rate FiO2 09/26/18 09:13 Ventilator 09/26/18 09:04 100 09/26/18 09:00 79 12 99/54 (69) 09/26/18 08:00 98.6 98.6 Lungs: Other (decrease bs) Cardiovascular: S1, S2 Abdomen: Soft, Non-tender Extremities: Other (1+edema) Labs Laboratory Tests Test 09/24/18 20:30 09/25/18 00:19 09/25/18 06:17 09/25/18 06:25 Vancomycin Level Trough 14.3 mcg/mL (10.0-20.0) Vancomycin Last Dose Date Unk Vancomycin Last Dose Time Unk Glucose (Fingerstick) 127 mg/dL (70-99) 153 mg/dL (70-99) White Blood Count 12.3 x10^3/uL (4.0-11.0) Red Blood Count 2.80 x10^6/uL (3.50-5.40) Hemoglobin 8.4 g/dL (12.0-15.5) Hematocrit 25.1 % (36.0-47.0) Mean Corpuscular Volume 89 fL (79-100) Mean Corpuscular Hemoglobin 30 pg (25-35) Mean Corpuscular Hemoglobin Concent 34 g/dL (31-37) Red Cell Distribution Width 17.2 % (11.5-14.5) Platelet Count 47 x10^3/uL (140-400) Neutrophils (%) (Auto) 87 % (31-73) Lymphocytes (%) (Auto) 7 % (24-48) Monocytes (%) (Auto) 5 % (0-9) Eosinophils (%) (Auto) 1 % (0-3) Basophils (%) (Auto) 0 % (0-3) Neutrophils # (Auto) 10.7 x10^3uL (1.8-7.7) Lymphocytes # (Auto) 0.9 x10^3/uL (1.0-4.8) Monocytes # (Auto) 0.6 x10^3/uL (0.0-1.1) Eosinophils # (Auto) 0.1 x10^3/uL (0.0-0.7) Basophils # (Auto) 0.0 x10^3/uL (0.0-0.2) Reticulocyte Count (auto) 1.8 % (0.5-2.5) Sodium Level 141 mmol/L (136-145) Potassium Level 3.0 mmol/L (3.5-5.1) Chloride Level 101 mmol/L (98-107) Carbon Dioxide Level 31 mmol/L (21-32) Anion Gap 9 (6-14) Blood Urea Nitrogen 37 mg/dL (7-20) Creatinine 1.8 mg/dL (0.6-1.0) Estimated GFR (Cockcroft-Gault) 28.3 Glucose Level 164 mg/dL (70-99) Calcium Level 7.1 mg/dL (8.5-10.1) Phosphorus Level 2.0 mg/dL (2.6-4.7) Magnesium Level 2.7 mg/dL (1.8-2.4) Iron Level 24 ug/dL (50-170) Total Iron Binding Capacity 232 ug/dL (250-450) Iron Saturation 10 % (15-34) Vitamin B12 Level 1022 pg/mL (247-911) Test 09/25/18 07:40 09/25/18 12:09 09/25/18 18:09 09/25/18 23:50 O2 Saturation 98 % (92-99) Arterial Blood pH 7.56 (7.35-7.45) Arterial Blood pCO2 at Patient Temp 29 mmHg (35-46) Arterial Blood pO2 at Patient Temp 106 mmHg (65-108) Arterial Blood HCO3 26 mmol/L (21-28) Arterial Blood Base Excess 4 mmol/L (-3-3) FiO2 35 Glucose (Fingerstick) 157 mg/dL (70-99) 109 mg/dL (70-99) 168 mg/dL (70-99) Test 09/26/18 06:17 09/26/18 06:21 Glucose (Fingerstick) 130 mg/dL (70-99) White Blood Count 10.5 x10^3/uL (4.0-11.0) Red Blood Count 2.75 x10^6/uL (3.50-5.40) Hemoglobin 8.3 g/dL (12.0-15.5) Hematocrit 25.1 % (36.0-47.0) Mean Corpuscular Volume 91 fL (79-100) Mean Corpuscular Hemoglobin 30 pg (25-35) Mean Corpuscular Hemoglobin Concent 33 g/dL (31-37) Red Cell Distribution Width 18.1 % (11.5-14.5) Platelet Count 49 x10^3/uL (140-400) Sodium Level 146 mmol/L (136-145) Potassium Level 3.9 mmol/L (3.5-5.1) Chloride Level 107 mmol/L (98-107) Carbon Dioxide Level 32 mmol/L (21-32) Anion Gap 7 (6-14) Blood Urea Nitrogen 36 mg/dL (7-20) Creatinine 1.4 mg/dL (0.6-1.0) Estimated GFR (Cockcroft-Gault) 37.9 Glucose Level 141 mg/dL (70-99) Calcium Level 7.0 mg/dL (8.5-10.1) Phosphorus Level 2.5 mg/dL (2.6-4.7) Magnesium Level 2.3 mg/dL (1.8-2.4) Laboratory Tests Test 09/25/18 12:09 09/25/18 18:09 09/25/18 23:50 09/26/18 06:17 Glucose (Fingerstick) 157 mg/dL (70-99) 109 mg/dL (70-99) 168 mg/dL (70-99) 130 mg/dL (70-99) Test 09/26/18 06:21 White Blood Count 10.5 x10^3/uL (4.0-11.0) Red Blood Count 2.75 x10^6/uL (3.50-5.40) Hemoglobin 8.3 g/dL (12.0-15.5) Hematocrit 25.1 % (36.0-47.0) Mean Corpuscular Volume 91 fL (79-100) Mean Corpuscular Hemoglobin 30 pg (25-35) Mean Corpuscular Hemoglobin Concent 33 g/dL (31-37) Red Cell Distribution Width 18.1 % (11.5-14.5) Platelet Count 49 x10^3/uL (140-400) Sodium Level 146 mmol/L (136-145) Potassium Level 3.9 mmol/L (3.5-5.1) Chloride Level 107 mmol/L (98-107) Carbon Dioxide Level 32 mmol/L (21-32) Anion Gap 7 (6-14) Blood Urea Nitrogen 36 mg/dL (7-20) Creatinine 1.4 mg/dL (0.6-1.0) Estimated GFR (Cockcroft-Gault) 37.9 Glucose Level 141 mg/dL (70-99) Calcium Level 7.0 mg/dL (8.5-10.1) Phosphorus Level 2.5 mg/dL (2.6-4.7) Magnesium Level 2.3 mg/dL (1.8-2.4) Medications Active Scripts Medications Dose Route/Sig Max Daily Dose Days Date Category [iron] 325 Mg PO 09/23/18 Reported Haloperidol 10 Mg Tablet 10 Mg PO QHS 09/23/18 Reported Ventolin Hfa Inhaler (Albuterol Sulfate) 18 Gm Hfa.aer.ad 2 Puff INH Q4HRS PRN 07/04/18 Reported Pristiq Er (Desvenlafaxine Succinate) 50 Mg Tab.er.24h 1 Tab PO DAILY 07/01/18 Reported Amitriptyline Hcl 25 Mg Tablet 1 Tab PO QHS 07/01/18 Reported Diazepam 5 Mg Tablet 5 Mg PO TID 07/01/18 Reported Gabapentin (Gabapentin) 300 Mg Capsule 300 Mg PO TID 07/01/18 Reported Impression . 1. Acute respiratory failure, multifactorial in etiology including shock, acute kidney injury 2. SEPTIC SHOCK 3. Abnormal CT of the chest with left lower lobe dense atelectasis/ PNEUMONIA 4. Acute kidney injury. 5. Electrolyte abnormality. 6. Gastrointestinal bleeding. 7. Hypotension. 8. Severe metabolic acidosis secondary to shock and acute kidney injury 09/26 Impression: Resolution of left lung base atelectasis. No new abnormality. Plan . SPOKE WITH RN AND RT WILL CONTINUE SUPPORT ADJUST MINUTE VENTILATION WEAL PRESSORS FOLLOW NEPHRO OF CRRT ALL CULTURES NEGATIVE CHANGE TO ZYVOX DVT GI PROPHYLAXIS TPN FOR NUTRITION START ENTERAL FEEDING WHEN OK WITH GI CCT 30 MIN TITO ZAPATA MD Sep 26, 2018 09:45
--- NOTE | 2018-09-26 10:04 | NUR ---
SS following up with discharge planning. SS phoned and faxed referral for LTAC to [facility], ; fax [phone].
--- NOTE | 2018-09-26 11:42 | PDOC ---
Renal-Progress Notes Subjective Notes Notes SEDATED History of Present Illness Hx of present illness NO CHANGE Vitals Vitals Vital Signs Date Time Temp Pulse Resp B/P (MAP) Pulse Ox O2 Delivery O2 Flow Rate FiO2 09/26/18 11:14 100 Ventilator 09/26/18 11:00 79 12 106/54 (71) 09/26/18 08:00 98.6 98.6 Weight Weight [ ] I.O. Intake and Output Intake and Output 09/26/18 07:00 Intake Total 1332.67 ml Output Total 2570 ml Balance -1237.33 ml IV Total 1332.67 ml Output Urine Total 2570 ml # Bowel Movements 1 Labs Labs Laboratory Tests Test 09/25/18 12:09 09/25/18 18:09 09/25/18 23:50 09/26/18 06:17 Glucose (Fingerstick) 157 mg/dL (70-99) 109 mg/dL (70-99) 168 mg/dL (70-99) 130 mg/dL (70-99) Test 09/26/18 06:21 09/26/18 11:33 White Blood Count 10.5 x10^3/uL (4.0-11.0) Red Blood Count 2.75 x10^6/uL (3.50-5.40) Hemoglobin 8.3 g/dL (12.0-15.5) Hematocrit 25.1 % (36.0-47.0) Mean Corpuscular Volume 91 fL (79-100) Mean Corpuscular Hemoglobin 30 pg (25-35) Mean Corpuscular Hemoglobin Concent 33 g/dL (31-37) Red Cell Distribution Width 18.1 % (11.5-14.5) Platelet Count 49 x10^3/uL (140-400) Sodium Level 146 mmol/L (136-145) Potassium Level 3.9 mmol/L (3.5-5.1) Chloride Level 107 mmol/L (98-107) Carbon Dioxide Level 32 mmol/L (21-32) Anion Gap 7 (6-14) Blood Urea Nitrogen 36 mg/dL (7-20) Creatinine 1.4 mg/dL (0.6-1.0) Estimated GFR (Cockcroft-Gault) 37.9 Glucose Level 141 mg/dL (70-99) Calcium Level 7.0 mg/dL (8.5-10.1) Phosphorus Level 2.5 mg/dL (2.6-4.7) Magnesium Level 2.3 mg/dL (1.8-2.4) Glucose (Fingerstick) 135 mg/dL (70-99) Micro Micro Microbiology 09/22/18 Blood Culture - Preliminary, Resulted NO GROWTH AFTER 3 DAYS 09/22/18 Urine Culture - Final, Complete 09/22/18 Urine Culture Result 1 (MELODY) - Final, Complete Review of Systems Constitutional: yes: unresponsive Physical Exam General Appearance: no apparent distress Skin: warm Respiratory: decreased breath sounds Heart: S1S2, RRR Abdomen: soft, bowel sounds present Genitourinary: bladder flat Extremities: pulses present Neurology: confused, other (SEDATED) Assessment Assessment IMP MARII-IMPROVING WITH CR DOWN TO 1.4 AND INCREASING UO ACUTE RESP FAILURE SHOCK-SEPSIS HYPOVOLEMIA ? PNEUMONIA ANEMIA ?GIB MET ACIDOSIS-RESOLVED ALKALEMIA ANEMIA PLAN PT REMAINS IN THE ICU NO MORE NEED FOR HD ANTIBIOTICS PRESSORS NEEDED TPN MAINTAIN HD LINE SHE NEEDS CENTRAL ACCESS MACKENZIE THOMAS MD Sep 26, 2018 11:42
[2018-09-26] MEDS: TPN PER PHARMACY MC PRN (14:13)
--- NOTE | 2018-09-26 14:15 | NUR ---
Pharmacy TPN Dosing Note S: ISABELL BUCIO is a 63 year old F Currently receiving Central Continuous TPN started 09/24/18 B:Pertinent PMH: Critical illness, suspected GIB Height: 5 feet, 0 inches Weight: 75.7 kg Current diet: npo LABS: Sodium: 146 Potassium: 3.9 Chloride: 107 Calcium: 7.0 Corrected Calcium: 8.12 Magnesium: 2.3 CO2: 32 SCr: 1.4 Glucose: 109-168 Albumin: 2.6 AST: 80 ALT: 39 TPN FORMULA: TPN TYPE: Central Continuous AMINO ACIDS: 90 gm DEXTROSE: 195 gm LIPIDS: 20 gm SODIUM CHLORIDE: 45 mEq POTASSIUM ACETATE: 35 mEq POTASSIUM PHOSPHATE: 17 mmol MAGNESIUM: 5 mEq CALCIUM: 10 mEq MULTIPLE VITAMIN: 10 ml TRACE ELEMENTS: MTE5 1mL TPN PLAN: Continue same. R: Continue TPN Will monitor electrolytes, glucose, and tolerance to TPN. Alysia Flowers Kimmy, 09/26/18 [id number]
[2018-09-26] MEDS: IPRATRPIUM/ALBUTEROL 0.5/2.5MG 3 ML NEBU. NEB SCH ×2 (15:07→20:02)
[2018-09-26] MEDS ORDERED: HALOPERIDOL 5 MG TABLET. PO SCH (21:00)
[2018-09-26] MEDS ORDERED: AMITRIPTYLINE HCL 25 MG TABLET. PO SCH (21:00)
[2018-09-26] MEDS: FAMOTIDINE 20 MG/2 ML VIAL IVP SCH (21:20)
[2018-09-26] MEDS ORDERED: TOTAL PARENTERAL NUTRITION IV SCH ×20 (22:00)
[2018-09-26] MEDS ORDERED: [UNRECOGNIZED DRUG - OTHER] IV SCH ×20 (22:00)
[2018-09-26] MEDS ORDERED: AMINO ACID IV SCH ×20 (22:00)
[2018-09-26] MEDS ORDERED: DEXTROSE 70% IV SCH ×20 (22:00)
[2018-09-27] VITALS (24 sets, daily range): BP systolic 107–156; BP diastolic 51–84
[2018-09-27] MEDS: INSULIN LISPRO 300 UNITS/3 ML INSULN.PEN. SQ SCH ×3 (05:47→17:25)
[2018-09-27] MEDS: PIPERACILLIN/TAZOBACTAM 3.375 GM in IV NORMAL SALINE 50ML 50 ML IV SCH ×3 (05:58→17:26)
[2018-09-27 06:06] LABS: HEMOGLOBIN 8.1 g/dL (12.0-15.5); RED BLOOD COUNT 2.72 x10^6/uL (3.50-5.40); RED CELL DISTRIBUTION WIDTH 17.5 % (11.5-14.5)
[2018-09-27 06:26] LABS: CALCIUM 7.7 mg/dL (8.5-10.1); CREATININE 1.2 mg/dL (0.6-1.0); GFR 45.2; MAGNESIUM 1.9 mg/dL (1.8-2.4); PHOSPHORUS 2.9 mg/dL (2.6-4.7)
[2018-09-27] MEDS: IPRATRPIUM/ALBUTEROL 0.5/2.5MG 3 ML NEBU. NEB SCH ×4 (07:32→20:23)
--- NOTE | 2018-09-27 08:12 | PDOC ---
PROGRESS NOTES Subjective Subjective Patient responsive on decreased sedation. Still on vent. Objective Objective Vital Signs Date Time Temp Pulse Resp B/P (MAP) Pulse Ox O2 Delivery O2 Flow Rate FiO2 09/27/18 07:32 98 Ventilator 09/27/18 07:03 12 09/27/18 06:00 88 135/71 (92) 09/27/18 04:00 98.4 98.4 Intake and Output 09/27/18 07:00 Intake Total 2183.06 ml Output Total 1800 ml Balance 383.06 ml IV Total 2183.06 ml Output Urine Total 1800 ml Physical Exam Abdomen: Normal bowel sounds, Soft, No tenderness Heart: Regular rate Extremities: No edema General: No acute distress Lungs: Clear to auscultation (anteriorly) Plan Plan of Care 1. Acute respiratory failure - no infiltrate on CXR now. Work towards weaning from ventilator. Abx per Dr Whitman. All cultures remain negative to date. 2. metabolic acidosis with acute renal failure - resolved, appears about at baseline renal function. Good UO. 3. GI bleed - Hgb stable, platelets improving. Continue TPN and meds per OG tube. 4. schizophrenia/bipolar mood disorder - continue home medication. Comment Review of Relevant I have reviewed the following items michelle (where applicable) has been applied. Labs Laboratory Tests Test 09/25/18 12:09 09/25/18 18:09 09/25/18 23:50 09/26/18 06:17 Glucose (Fingerstick) 157 mg/dL (70-99) 109 mg/dL (70-99) 168 mg/dL (70-99) 130 mg/dL (70-99) Test 09/26/18 06:21 09/26/18 11:33 09/26/18 17:56 09/26/18 23:32 White Blood Count 10.5 x10^3/uL (4.0-11.0) Red Blood Count 2.75 x10^6/uL (3.50-5.40) Hemoglobin 8.3 g/dL (12.0-15.5) Hematocrit 25.1 % (36.0-47.0) Mean Corpuscular Volume 91 fL (79-100) Mean Corpuscular Hemoglobin 30 pg (25-35) Mean Corpuscular Hemoglobin Concent 33 g/dL (31-37) Red Cell Distribution Width 18.1 % (11.5-14.5) Platelet Count 49 x10^3/uL (140-400) Sodium Level 146 mmol/L (136-145) Potassium Level 3.9 mmol/L (3.5-5.1) Chloride Level 107 mmol/L (98-107) Carbon Dioxide Level 32 mmol/L (21-32) Anion Gap 7 (6-14) Blood Urea Nitrogen 36 mg/dL (7-20) Creatinine 1.4 mg/dL (0.6-1.0) Estimated GFR (Cockcroft-Gault) 37.9 Glucose Level 141 mg/dL (70-99) Calcium Level 7.0 mg/dL (8.5-10.1) Phosphorus Level 2.5 mg/dL (2.6-4.7) Magnesium Level 2.3 mg/dL (1.8-2.4) Glucose (Fingerstick) 135 mg/dL (70-99) 112 mg/dL (70-99) 105 mg/dL (70-99) Test 09/27/18 05:35 09/27/18 05:40 White Blood Count 8.0 x10^3/uL (4.0-11.0) Red Blood Count 2.72 x10^6/uL (3.50-5.40) Hemoglobin 8.1 g/dL (12.0-15.5) Hematocrit 25.0 % (36.0-47.0) Mean Corpuscular Volume 92 fL (79-100) Mean Corpuscular Hemoglobin 30 pg (25-35) Mean Corpuscular Hemoglobin Concent 32 g/dL (31-37) Red Cell Distribution Width 17.5 % (11.5-14.5) Platelet Count 60 x10^3/uL (140-400) Sodium Level 145 mmol/L (136-145) Potassium Level 4.0 mmol/L (3.5-5.1) Chloride Level 107 mmol/L (98-107) Carbon Dioxide Level 32 mmol/L (21-32) Anion Gap 6 (6-14) Blood Urea Nitrogen 38 mg/dL (7-20) Creatinine 1.2 mg/dL (0.6-1.0) Estimated GFR (Cockcroft-Gault) 45.2 Glucose Level 121 mg/dL (70-99) Calcium Level 7.7 mg/dL (8.5-10.1) Phosphorus Level 2.9 mg/dL (2.6-4.7) Magnesium Level 1.9 mg/dL (1.8-2.4) Glucose (Fingerstick) 108 mg/dL (70-99) Laboratory Tests Test 09/26/18 11:33 09/26/18 17:56 09/26/18 23:32 09/27/18 05:35 Glucose (Fingerstick) 135 mg/dL (70-99) 112 mg/dL (70-99) 105 mg/dL (70-99) White Blood Count 8.0 x10^3/uL (4.0-11.0) Red Blood Count 2.72 x10^6/uL (3.50-5.40) Hemoglobin 8.1 g/dL (12.0-15.5) Hematocrit 25.0 % (36.0-47.0) Mean Corpuscular Volume 92 fL (79-100) Mean Corpuscular Hemoglobin 30 pg (25-35) Mean Corpuscular Hemoglobin Concent 32 g/dL (31-37) Red Cell Distribution Width 17.5 % (11.5-14.5) Platelet Count 60 x10^3/uL (140-400) Sodium Level 145 mmol/L (136-145) Potassium Level 4.0 mmol/L (3.5-5.1) Chloride Level 107 mmol/L (98-107) Carbon Dioxide Level 32 mmol/L (21-32) Anion Gap 6 (6-14) Blood Urea Nitrogen 38 mg/dL (7-20) Creatinine 1.2 mg/dL (0.6-1.0) Estimated GFR (Cockcroft-Gault) 45.2 Glucose Level 121 mg/dL (70-99) Calcium Level 7.7 mg/dL (8.5-10.1) Phosphorus Level 2.9 mg/dL (2.6-4.7) Magnesium Level 1.9 mg/dL (1.8-2.4) Test 09/27/18 05:40 Glucose (Fingerstick) 108 mg/dL (70-99) Microbiology 09/22/18 Blood Culture - Preliminary, Resulted NO GROWTH AFTER 4 DAYS 09/25/18 - Final, Resulted 09/25/18 - Final, Resulted 09/25/18 , Resulted Pending 09/25/18 Gram Stain Evaluation - Final, Resulted 09/25/18 Sputum Culture, Resulted Pending 09/22/18 Urine Culture - Final, Complete 09/22/18 Urine Culture Result 1 (MELODY) - Final, Complete Medications Current Medications Sodium Chloride 1,000 ml @ 1,000 mls/hr 1X ONCE IV Last administered on at 17:18; Start 09/22/18 at 17:15; Stop 09/22/18 at 18:14; Status DC Pantoprazole Sodium 80 mg/ Sodium Chloride 100 ml @ 10 mls/hr Q10H IV Last administered on 09/24/18at 05:46; Start 09/22/18 at 17:15; Stop 09/24/18 at 15:43 ; Status DC Pantoprazole Sodium (PROTONIX VIAL for IV PUSH) 80 mg 1X ONCE IVP Last administered on 09/22/18at 17:39; Start 09/22/18 at 17:15; Stop 09/22/18 at 17:17 ; Status DC Ceftriaxone Sodium (Rocephin) 1 gm 1X ONCE IVP ; Start 09/22/18 at 17:30; Stop 09/22/18 at 17:30; Status DC Sodium Chloride 1,000 ml @ 1,000 mls/hr 1X ONCE IV Last administered on at 17:27; Start 09/22/18 at 17:30; Stop 09/22/18 at 18:29; Status DC Vancomycin HCl (Vanco Per Pharmacy) 1 each PRN DAILY PRN MC SEE COMMENTS Last administered on 09/24/18at 21:37; Start 09/22/18 at 17:30; Stop 09/25/18 at 12:02 ; Status DC Piperacillin Sod/ Tazobactam Sod (Zosyn Per Pharmacy) 1 each PRN DAILY PRN MC SEE COMMENTS; Start 09/22/18 at 17:30 Piperacillin Sod/ Tazobactam Sod 3.375 gm/Sodium Chloride 50 ml @ 100 mls/hr 1X ONCE IV Last administered on 09/22/18at 18:04; Start 09/22/18 at 17:30; Stop 09/22/18 at 17:59; Status DC Vancomycin HCl 1.75 gm/Sodium Chloride 500 ml @ 250 mls/hr 1X ONCE IV Last administered on 09/22/18 23:28; Start 09/22/18 at 17:30; Stop 09/22/18 at 19:29 ; Status DC Sodium Bicarbonate (Sodium Bicarb Adult 8.4% Syr) 50 meq 1X ONCE IV Last administered on 09/22/18 18:03; Start 09/22/18 at 17:45; Stop 09/22/18 at 17:46 ; Status DC Norepinephrine Bitartrate 250 ml @ 0 mls/hr 1X ONCE IV Last administered on 17:51; Start 09/22/18 at 17:45; Stop 09/22/18 at 17:46; Status DC Sodium Bicarbonate 150 meq/Sterile Water 1,150 ml @ 125 mls/hr 1X ONCE IV Last administered on 09/22/18 18:30; Start 09/22/18 at 18:30; Stop 09/23/18 at 03:41; Status DC Piperacillin Sod/ Tazobactam Sod 3.375 gm/Sodium Chloride 50 ml @ 100 mls/hr Q6HRS IV Last administered on 09/27/18 05:58; Start 09/23/18 at 00:00 Vasopressin 40 unit/Dextrose 102 ml @ 6 mls/hr CONT PRN IV SEE I/O RECORD Last administered on 09/24/18 12:53; Start 09/22/18 at 18:45 Fentanyl Citrate (Fentanyl 2ml Vial) 50 mcg 1X ONCE IV ; Start 09/22/18 at 19: 00; Stop 09/22/18 at 19:01; Status DC Midazolam HCl 100 ml @ 5 mls/hr CONT PRN IV SEE I/O RECORD Last administered on 09/25/18 19:41; Start 09/22/18 at 19:00 Lidocaine/Sodium Bicarbonate (Buffered Lidocaine 1%) 4 ml 1X ONCE INJ Last administered on 09/22/18 19:15; Start 09/22/18 at 19:15; Stop 09/22/18 at 19:18 ; Status DC Heparin Sodium (Porcine) (Heparin Sodium) 2,500 unit 1X ONCE INT CAT Last administered on 09/22/18 19:15; Start 09/22/18 at 19:15; Stop 09/22/18 at 19:18 ; Status DC Heparin Sodium (Porcine) (Heparin Sodium) 10,000 unit STK-MED ONCE .ROUTE ; Start 09/22/18 at 19:17; Stop 09/22/18 at 19:18; Status DC Sodium Bicarbonate 40 meq/Potassium Chloride 15 meq/ Magnesium Sulfate 5 meq/ Calcium Chloride 2.5 meq/ Bicarbonate Dialysis Soln w/ out KCl 5,050.5172 ml @ 1 ,000 mls/hr Q5H4M IV Last administered on 09/23/18at 05:02; Start 09/22/18 at 22 :00; Stop 09/23/18 at 08:43; Status DC Sodium Bicarbonate 40 meq/Potassium Chloride 15 meq/ Magnesium Sulfate 5 meq/ Calcium Chloride 2.5 meq/ Bicarbonate Dialysis Soln w/ out KCl 5,050.5172 ml @ 1 ,000 mls/hr Q5H4M IV Last administered on 09/23/18at 05:02; Start 09/22/18 at 22 :00; Stop 09/23/18 at 08:43; Status DC Sodium Bicarbonate 150 meq/Sterile Water 1,150 ml @ 300 mls/hr Q3H50M IV Last administered on 09/24/18at 05:45; Start 09/22/18 at 22:00; Stop 09/24/18 at 15:44 ; Status DC Etomidate (Amidate) 20 mg STK-MED ONCE IV ; Start 09/22/18 at 20:36; Stop at 20:37; Status DC Rocuronium Mineral (Zemuron) 50 mg STK-MED ONCE .ROUTE ; Start 09/22/18 at 20:36 ; Stop 09/22/18 at 20:37; Status DC Norepinephrine Bitartrate 250 ml @ 1.875 mls/ hr CONT PRN IV SEE I/O RECORD Last administered on 09/24/18at 12:54; Start 09/22/18 at 23:30 Fentanyl Citrate (Fentanyl 2ml Vial) 50 mcg PRN Q1HR PRN IV PAIN Last administered on 09/23/18at 23:48; Start 09/22/18 at 23:30 Epinephrine HCl 4 mg/Sodium Chloride 254 ml @ 26.44 mls/ hr CONT PRN IV SEE I/ O RECORD; Start 09/23/18 at 02:15 Albuterol/ Ipratropium (Duoneb) 3 ml RTQID NEB Last administered on 09/27/18at 07:32; Start 09/23/18 at 08:00 Sodium Bicarbonate 40 meq/Potassium Chloride 15 meq/ Magnesium Sulfate 5 meq/ Calcium Chloride 17.5 meq/ Bicarbonate Dialysis Soln w/ out KCl 5,061.2315 ml @ 1,000 mls/hr Q5H4M IV Last administered on 09/23/18at 10:13; Start 09/23/18 at 10:00; Stop 09/23/18 at 10:32; Status DC Sodium Bicarbonate 40 meq/Potassium Chloride 15 meq/ Magnesium Sulfate 5 meq/ Calcium Chloride 17.5 meq/ Bicarbonate Dialysis Soln w/ out KCl 5,061.2315 ml @ 1,000 mls/hr Q5H4M IV Last administered on 09/23/18at 10:12; Start 09/23/18 at 10:00; Stop 09/23/18 at 10:33; Status DC Sodium Bicarbonate 40 meq/Potassium Chloride 15 meq/ Magnesium Sulfate 5 meq/ Calcium Chloride 5 meq/ Bicarbonate Dialysis Soln w/ out KCl 5,052.3029 ml @ 1, 000 mls/hr Q5H4M IV Last administered on 09/23/18at 15:40; Start 09/23/18 at 11: 00; Stop 09/23/18 at 19:28; Status DC Sodium Bicarbonate 40 meq/Potassium Chloride 15 meq/ Magnesium Sulfate 5 meq/ Calcium Chloride 5 meq/ Bicarbonate Dialysis Soln w/ out KCl 5,052.3029 ml @ 1, 000 mls/hr Q5H4M IV Last administered on 09/23/18at 15:39; Start 09/23/18 at 10: 45; Stop 09/23/18 at 19:28; Status DC Vancomycin HCl 1 gm/Sodium Chloride 250 ml @ 250 mls/hr Q24H IV Last administered on 09/24/18at 21:38; Start 09/23/18 at 21:00; Stop 09/25/18 at 12:02 ; Status DC Vancomycin HCl (Vancomycin Trough Level) 1 each 1X ONCE MC Last administered on 09/24/18at 20:30; Start 09/24/18 at 20:30; Stop 09/24/18 at 20:31; Status DC Potassium Chloride 15 meq/ Magnesium Sulfate 5 meq/Calcium Chloride 5 meq/ Bicarbonate Dialysis Soln w/ out KCl 5,012.3029 ml @ 1,000 mls/hr Q5H1M IV Last administered on 09/23/18at 23:50; Start 09/23/18 at 20:30; Stop 09/24/18 at 04:06; Status DC Potassium Chloride 35 meq/ Magnesium Sulfate 5 meq/Calcium Chloride 5 meq/ Bicarbonate Dialysis Soln w/ out KCl 5,022.3029 ml @ 1,000 mls/hr Q5H2M IV Last administered on 09/23/18at 23:49; Start 09/23/18 at 20:30; Stop 09/24/18 at 04:06; Status DC Fentanyl Citrate 30 ml @ 0 mls/hr CONT PRN IV SEE PROTOCOL Last administered on 09/27/18at 07:03; Start 09/23/18 at 22:30 Chlorhexidine Gluconate (Peridex) 15 ml BID MM Last administered on 09/24/18at 21:41; Start 09/24/18 at 09:00; Stop 09/25/18 at 09:30; Status DC Potassium Chloride 15 meq/ Magnesium Sulfate 2.5 meq/Calcium Chloride 5 meq/ Bicarbonate Dialysis Soln w/ out KCl 5,011.6871 ml @ 1,000 mls/hr Q5H1M IV Last administered on 09/24/18at 04:34; Start 09/24/18 at 04:30; Stop 09/24/18 at 17:00; Status DC Potassium Chloride 35 meq/ Magnesium Sulfate 2.5 meq/Calcium Chloride 5 meq/ Bicarbonate Dialysis Soln w/ out KCl 5,021.6871 ml @ 1,000 mls/hr Q5H2M IV Last administered on 09/24/18at 04:34; Start 09/24/18 at 04:30; Stop 09/24/18 at 17:00; Status DC Sodium Chloride 90 meq/Potassium Chloride 50 meq/ Potassium Phosphate 13.6 mmol/ Magnesium Sulfate 10 meq/ Calcium Gluconate 10 meq/ Multivitamins 10 ml/Chromium / Copper/Manganese/ Seleni/Zn 1 ml/ Total Parenteral Nutrition/Amino Acids/ Dextrose/ Fat Emulsion Intravenous 87.0013 ml @ 3.625 mls/hr TPN CONT IV ; Start 09/24/18 at 22:00; Stop 09/25/18 at 21:59; Status UNV Info (Tpn Per Pharmacy) 1 each PRN DAILY PRN MC SEE COMMENTS Last administered on 09/26/18at 14:13; Start 09/24/18 at 08:15 Sodium Acetate 45 meq/Potassium Acetate 25 meq/ Potassium Phosphate 13.6 mmol/ Magnesium Sulfate 10 meq/ Calcium Gluconate 10 meq/ Multivitamins 10 ml/Chromium / Copper/Manganese/ Seleni/Zn 1 ml/ Total Parenteral Nutrition/Amino Acids/ Dextrose/ Fat Emulsion Intravenous 1,422 ml @ 59.25 mls/ hr TPN CONT IV Last administered on 09/24/18at 22:50; Start 09/24/18 at 22:00; Stop 09/25/18 at 21:59 ; Status DC Potassium Chloride/Water 50 ml @ 50 mls/hr Q1H IV Last administered on at 10:39; Start 09/25/18 at 09:00; Stop 09/25/18 at 10:59; Status DC Insulin Human Lispro (HumaLOG) 0-5 UNITS Q6HRS SQ Last administered on at 12:24; Start 09/25/18 at 12:00 Dextrose (Dextrose 50%-Water Syringe) 12.5 gm PRN Q15MIN PRN IV SEE COMMENTS; Start 09/25/18 at 09:30 Famotidine (Pepcid Vial) 20 mg QHS IVP Last administered on 09/26/18at 21:20; Start 09/25/18 at 21:00 Linezolid/Dextrose 300 ml @ 300 mls/hr Q12HR IV Last administered on at 21:20; Start 09/25/18 at 13:00 Pantoprazole Sodium (PROTONIX VIAL for IV PUSH) 40 mg DAILYAC IVP ; Start at 13:00; Stop 09/25/18 at 13:00; Status DC Sodium Chloride 45 meq/Potassium Acetate 35 meq/ Potassium Phosphate 17 mmol/ Magnesium Sulfate 5 meq/Calcium Gluconate 10 meq/ Multivitamins 10 ml/Chromium/ Copper/Manganese/ Seleni/Zn 1 ml/ Total Parenteral Nutrition/Amino Acids/ Dextrose/ Fat Emulsion Intravenous 1,512 ml @ 63 mls/hr TPN CONT IV Last administered on 09/25/18at 22:10; Start 09/25/18 at 22:00; Stop 09/26/18 at 13:53 ; Status DC Sodium Phosphate 10 mmol/Dextrose 253.3333 ml @ 63.333 m... 1X ONCE IV Last administered on 09/25/18at 16:16; Start 09/25/18 at 16:00; Stop 09/25/18 at 19:59 ; Status DC Amitriptyline HCl (Elavil) 25 mg QHS PO ; Start 09/26/18 at 21:00; Status UNV Non-Formulary Medication (Desvenlafaxine Succinate (Pristiq Er)) 1 tab DAILY PO ; Start 09/27/18 at 09:00; Status UNV Haloperidol (Haldol) 10 mg HS PO Last administered on 09/26/18at 21:20; Start at 21:00 Sodium Chloride 45 meq/Potassium Acetate 35 meq/ Potassium Phosphate 17 mmol/ Magnesium Sulfate 5 meq/Calcium Gluconate 10 meq/ Multivitamins 10 ml/Chromium/ Copper/Manganese/ Seleni/Zn 1 ml/ Total Parenteral Nutrition/Amino Acids/ Dextrose/ Fat Emulsion Intravenous 1,512 ml @ 63 mls/hr TPN CONT IV ; Start at 22:00; Stop 09/27/18 at 21:59; Status Cancel Sodium Chloride 45 meq/Potassium Acetate 35 meq/ Potassium Phosphate 17 mmol/ Magnesium Sulfate 5 meq/Calcium Gluconate 10 meq/ Multivitamins 10 ml/Chromium/ Copper/Manganese/ Seleni/Zn 1 ml/ Total Parenteral Nutrition/Amino Acids/ Dextrose/ Fat Emulsion Intravenous 1,512 ml @ 63 mls/hr TPN CONT IV Last administered on 09/26/18at 21:31; Start 09/26/18 at 22:00; Stop 09/27/18 at 21:59 Active Scripts Active Reported [iron] 325 Mg PO Haloperidol 10 Mg Tablet 10 Mg PO QHS Ventolin Hfa Inhaler (Albuterol Sulfate) 18 Gm Hfa.aer.ad 2 Puff INH Q4HRS PRN Pristiq Er (Desvenlafaxine Succinate) 50 Mg Tab.er.24h 1 Tab PO DAILY Amitriptyline Hcl 25 Mg Tablet 1 Tab PO QHS Diazepam 5 Mg Tablet 5 Mg PO TID Gabapentin (Gabapentin) 300 Mg Capsule 300 Mg PO TID Vitals/I & O Vital Sign - Last 24 Hours 09/26/18 09/26/18 09/26/18 09/26/18 08:24 09:00 09:04 09:13 Pulse 79 Resp 12 B/P (MAP) 99/54 (69) Pulse Ox 100 100 O2 Delivery Ventilator Ventilator Ventilator Ventilator 09/26/18 09/26/18 09/26/18 09/26/18 10:00 10:45 11:00 11:14 Pulse 82 80 79 Resp 12 12 B/P (MAP) 95/51 (66) 120/62 (81) 106/54 (71) Pulse Ox 100 100 100 O2 Delivery Ventilator Ventilator Ventilator 09/26/18 09/26/18 09/26/18 09/26/18 12:00 12:00 13:00 14:00 Temp 98.5 98.5 Pulse 85 90 90 Resp 12 12 12 B/P (MAP) 95/47 (63) 141/65 (90) 119/59 (79) Pulse Ox 100 100 100 O2 Delivery Mechanical Ventilator Ventilator Ventilator Ventilator 09/26/18 09/26/18 09/26/18 09/26/18 14:00 15:00 15:07 15:56 Pulse 92 Resp 17 B/P (MAP) 156/81 (106) Pulse Ox 100 100 100 O2 Delivery Ventilator Ventilator Ventilator Mechanical Ventilator 09/26/18 09/26/18 09/26/18 09/26/18 16:00 17:00 17:02 18:00 Temp 99.0 99.0 Pulse 86 86 87 Resp 12 12 12 B/P (MAP) 104/56 (72) 119/59 (79) 163/73 (103) Pulse Ox 100 100 100 100 O2 Delivery Ventilator Ventilator Ventilator Ventilator 09/26/18 09/26/18 09/26/18 09/26/18 19:00 19:58 20:00 20:00 Temp 98.5 98.5 Pulse 89 90 Resp 12 12 B/P (MAP) 97/47 (64) 135/62 (86) Pulse Ox 100 100 100 O2 Delivery Ventilator Ventilator Mechanical Ventilator Ventilator 09/26/18 09/26/18 09/26/18 09/26/18 21:00 22:00 23:00 23:26 Pulse 86 92 81 Resp 12 12 12 B/P (MAP) 102/52 (69) 154/64 (94) 91/46 (61) Pulse Ox 100 100 100 100 O2 Delivery Ventilator Ventilator Ventilator Ventilator 09/26/18 09/27/18 09/27/18 09/27/18 23:30 00:00 01:00 01:16 Temp 99.0 99.0 Pulse 85 82 Resp 12 12 B/P (MAP) 131/67 (88) 137/68 (91) Pulse Ox 100 100 100 O2 Delivery Mechanical Ventilator Ventilator Ventilator Ventilator 09/27/18 09/27/18 09/27/18 09/27/18 02:00 03:00 03:30 03:39 Pulse 80 92 Resp 12 16 B/P (MAP) 127/64 (85) 133/67 (89) Pulse Ox 100 100 100 O2 Delivery Ventilator Ventilator Mechanical Ventilator Ventilator 09/27/18 09/27/18 09/27/18 09/27/18 04:00 05:00 05:20 06:00 Temp 98.4 98.4 Pulse 79 85 88 Resp 12 12 12 B/P (MAP) 111/56 (74) 121/56 (77) 135/71 (92) Pulse Ox 100 99 100 100 O2 Delivery Ventilator Ventilator Ventilator Ventilator 09/27/18 09/27/18 07:03 07:32 Resp 12 Pulse Ox 100 98 O2 Delivery Ventilator Intake and Output 09/26/18 09/26/18 09/27/18 15:00 23:00 07:00 Intake Total 379.20 ml 689.46 ml 1114.4 ml Output Total 575 ml 635 ml 590 ml Balance -195.80 ml 54.46 ml 524.4 ml MILY COOK MD Sep 27, 2018 08:12
[2018-09-27 08:28] LABS: BASE EXCESS ABG 4 mmol/L (-3-3); HCO3 ABG 29 mmol/L (21-28); PCO2 ABG 45 mmHg (35-46); PO2 ABG 111 mmHg (65-108); SAT O2 ABG 97 % (92-99)
--- NOTE | 2018-09-27 08:47 | PDOC ---
PULMONARY PROGRESS NOTES Subjective ac mode off levo Vitals Vital Signs Date Time Temp Pulse Resp B/P (MAP) Pulse Ox O2 Delivery O2 Flow Rate FiO2 09/27/18 07:32 98 Ventilator 09/27/18 07:03 12 09/27/18 06:00 88 135/71 (92) 09/27/18 04:00 98.4 98.4 Lungs: Other (decrease bs) Cardiovascular: S1, S2 Abdomen: Soft, Non-tender Extremities: Other (1+edema) Labs Laboratory Tests Test 09/25/18 12:09 09/25/18 18:09 09/25/18 23:50 09/26/18 06:17 Glucose (Fingerstick) 157 mg/dL (70-99) 109 mg/dL (70-99) 168 mg/dL (70-99) 130 mg/dL (70-99) Test 09/26/18 06:21 09/26/18 11:33 09/26/18 17:56 09/26/18 23:32 White Blood Count 10.5 x10^3/uL (4.0-11.0) Red Blood Count 2.75 x10^6/uL (3.50-5.40) Hemoglobin 8.3 g/dL (12.0-15.5) Hematocrit 25.1 % (36.0-47.0) Mean Corpuscular Volume 91 fL (79-100) Mean Corpuscular Hemoglobin 30 pg (25-35) Mean Corpuscular Hemoglobin Concent 33 g/dL (31-37) Red Cell Distribution Width 18.1 % (11.5-14.5) Platelet Count 49 x10^3/uL (140-400) Sodium Level 146 mmol/L (136-145) Potassium Level 3.9 mmol/L (3.5-5.1) Chloride Level 107 mmol/L (98-107) Carbon Dioxide Level 32 mmol/L (21-32) Anion Gap 7 (6-14) Blood Urea Nitrogen 36 mg/dL (7-20) Creatinine 1.4 mg/dL (0.6-1.0) Estimated GFR (Cockcroft-Gault) 37.9 Glucose Level 141 mg/dL (70-99) Calcium Level 7.0 mg/dL (8.5-10.1) Phosphorus Level 2.5 mg/dL (2.6-4.7) Magnesium Level 2.3 mg/dL (1.8-2.4) Glucose (Fingerstick) 135 mg/dL (70-99) 112 mg/dL (70-99) 105 mg/dL (70-99) Test 09/27/18 05:35 09/27/18 05:40 White Blood Count 8.0 x10^3/uL (4.0-11.0) Red Blood Count 2.72 x10^6/uL (3.50-5.40) Hemoglobin 8.1 g/dL (12.0-15.5) Hematocrit 25.0 % (36.0-47.0) Mean Corpuscular Volume 92 fL (79-100) Mean Corpuscular Hemoglobin 30 pg (25-35) Mean Corpuscular Hemoglobin Concent 32 g/dL (31-37) Red Cell Distribution Width 17.5 % (11.5-14.5) Platelet Count 60 x10^3/uL (140-400) Sodium Level 145 mmol/L (136-145) Potassium Level 4.0 mmol/L (3.5-5.1) Chloride Level 107 mmol/L (98-107) Carbon Dioxide Level 32 mmol/L (21-32) Anion Gap 6 (6-14) Blood Urea Nitrogen 38 mg/dL (7-20) Creatinine 1.2 mg/dL (0.6-1.0) Estimated GFR (Cockcroft-Gault) 45.2 Glucose Level 121 mg/dL (70-99) Calcium Level 7.7 mg/dL (8.5-10.1) Phosphorus Level 2.9 mg/dL (2.6-4.7) Magnesium Level 1.9 mg/dL (1.8-2.4) Glucose (Fingerstick) 108 mg/dL (70-99) Laboratory Tests Test 09/26/18 11:33 09/26/18 17:56 09/26/18 23:32 09/27/18 05:35 Glucose (Fingerstick) 135 mg/dL (70-99) 112 mg/dL (70-99) 105 mg/dL (70-99) White Blood Count 8.0 x10^3/uL (4.0-11.0) Red Blood Count 2.72 x10^6/uL (3.50-5.40) Hemoglobin 8.1 g/dL (12.0-15.5) Hematocrit 25.0 % (36.0-47.0) Mean Corpuscular Volume 92 fL (79-100) Mean Corpuscular Hemoglobin 30 pg (25-35) Mean Corpuscular Hemoglobin Concent 32 g/dL (31-37) Red Cell Distribution Width 17.5 % (11.5-14.5) Platelet Count 60 x10^3/uL (140-400) Sodium Level 145 mmol/L (136-145) Potassium Level 4.0 mmol/L (3.5-5.1) Chloride Level 107 mmol/L (98-107) Carbon Dioxide Level 32 mmol/L (21-32) Anion Gap 6 (6-14) Blood Urea Nitrogen 38 mg/dL (7-20) Creatinine 1.2 mg/dL (0.6-1.0) Estimated GFR (Cockcroft-Gault) 45.2 Glucose Level 121 mg/dL (70-99) Calcium Level 7.7 mg/dL (8.5-10.1) Phosphorus Level 2.9 mg/dL (2.6-4.7) Magnesium Level 1.9 mg/dL (1.8-2.4) Test 09/27/18 05:40 Glucose (Fingerstick) 108 mg/dL (70-99) Medications Active Scripts Medications Dose Route/Sig Max Daily Dose Days Date Category [iron] 325 Mg PO 09/23/18 Reported Haloperidol 10 Mg Tablet 10 Mg PO QHS 09/23/18 Reported Ventolin Hfa Inhaler (Albuterol Sulfate) 18 Gm Hfa.aer.ad 2 Puff INH Q4HRS PRN 07/04/18 Reported Pristiq Er (Desvenlafaxine Succinate) 50 Mg Tab.er.24h 1 Tab PO DAILY 07/01/18 Reported Amitriptyline Hcl 25 Mg Tablet 1 Tab PO QHS 07/01/18 Reported Diazepam 5 Mg Tablet 5 Mg PO TID 07/01/18 Reported Gabapentin (Gabapentin) 300 Mg Capsule 300 Mg PO TID 07/01/18 Reported Impression . 1. Acute respiratory failure, multifactorial in etiology including shock, acute kidney injury 2. SEPTIC SHOCK 3. Abnormal CT of the chest with left lower lobe dense atelectasis/ PNEUMONIA 4. Acute kidney injury. 5. Electrolyte abnormality. 6. Gastrointestinal bleeding. 7. Hypotension. 8. Severe metabolic acidosis secondary to shock and acute kidney injury 09/26 Impression: Resolution of left lung base atelectasis. No new abnormality. Plan . SPOKE WITH RN AND RT DC SEDATION AND TRIAL POSSIBLE EXTUBATION TODAY OFF PRESSORS FOLLOW NEPHRO ALL CULTURES NEGATIVE ANTIBX DVT GI PROPHYLAXIS TPN FOR NUTRITION START ENTERAL FEEDING WHEN OK WITH GI CCT 30 MIN TITO ZAPATA MD Sep 27, 2018 08:47
[2018-09-27] MEDS ORDERED: NON FORMULARY ITEM (Desvenlafaxine Succinate (Pristiq Er) 1 TAB) PO SCH (09:00)
[2018-09-27 09:38] LABS: FIO2 ABG 35
--- NOTE | 2018-09-27 10:57 | PDOC ---
Renal-Progress Notes Subjective Notes Notes INTUBATED History of Present Illness Hx of present illness BETTER Vitals Vitals Vital Signs Date Time Temp Pulse Resp B/P (MAP) Pulse Ox O2 Delivery O2 Flow Rate FiO2 09/27/18 09:00 89 12 112/54 (73) 99 Ventilator 09/27/18 08:00 98.5 98.5 Weight Weight [ ] I.O. Intake and Output Intake and Output 09/27/18 06:59 Intake Total 2183.06 ml Output Total 1875 ml Balance 308.06 ml IV Total 2183.06 ml Output Urine Total 1875 ml Labs Labs Laboratory Tests Test 09/26/18 11:33 09/26/18 17:56 09/26/18 23:32 09/27/18 05:35 Glucose (Fingerstick) 135 mg/dL (70-99) 112 mg/dL (70-99) 105 mg/dL (70-99) White Blood Count 8.0 x10^3/uL (4.0-11.0) Red Blood Count 2.72 x10^6/uL (3.50-5.40) Hemoglobin 8.1 g/dL (12.0-15.5) Hematocrit 25.0 % (36.0-47.0) Mean Corpuscular Volume 92 fL (79-100) Mean Corpuscular Hemoglobin 30 pg (25-35) Mean Corpuscular Hemoglobin Concent 32 g/dL (31-37) Red Cell Distribution Width 17.5 % (11.5-14.5) Platelet Count 60 x10^3/uL (140-400) Sodium Level 145 mmol/L (136-145) Potassium Level 4.0 mmol/L (3.5-5.1) Chloride Level 107 mmol/L (98-107) Carbon Dioxide Level 32 mmol/L (21-32) Anion Gap 6 (6-14) Blood Urea Nitrogen 38 mg/dL (7-20) Creatinine 1.2 mg/dL (0.6-1.0) Estimated GFR (Cockcroft-Gault) 45.2 Glucose Level 121 mg/dL (70-99) Calcium Level 7.7 mg/dL (8.5-10.1) Phosphorus Level 2.9 mg/dL (2.6-4.7) Magnesium Level 1.9 mg/dL (1.8-2.4) Test 2/28/19 05:40 09/27/18 08:00 Glucose (Fingerstick) 108 mg/dL (70-99) O2 Saturation 97 % (92-99) Arterial Blood pH 7.43 (7.35-7.45) Arterial Blood pCO2 at Patient Temp 45 mmHg (35-46) Arterial Blood pO2 at Patient Temp 111 mmHg (65-108) Arterial Blood HCO3 29 mmol/L (21-28) Arterial Blood Base Excess 4 mmol/L (-3-3) FiO2 35 Micro Micro Microbiology 09/22/18 Blood Culture - Final, Complete 09/25/18 - Final, Resulted 09/25/18 - Final, Resulted 09/25/18 , Resulted Pending 09/25/18 Gram Stain Evaluation - Final, Resulted 09/25/18 Sputum Culture - Preliminary, Resulted 09/25/18 Sputum Result 1 - Final, Resulted 09/22/18 Urine Culture - Final, Complete 09/22/18 Urine Culture Result 1 (MELODY) - Final, Complete Review of Systems Constitutional: yes: unresponsive Physical Exam General Appearance: no apparent distress Skin: warm Respiratory: decreased breath sounds Heart: S1S2, RRR Abdomen: soft, bowel sounds present Genitourinary: bladder flat Extremities: pulses present Neurology: confused, other (SEDATED) Assessment Assessment IMP MARII-IMPROVING WITH CR DOWN TO 1.2 ACUTE RESP FAILURE SHOCK-SEPSIS HYPOVOLEMIA ? PNEUMONIA ANEMIA ?GIB MET ACIDOSIS-RESOLVED ALKALEMIA ANEMIA PLAN PT REMAINS IN THE ICU NO MORE NEED FOR HD ANTIBIOTICS PRESSORS NEEDED TPN MAINTAIN HD LINE SHE NEEDS CENTRAL ACCESS MACKENZIE THOMAS MD Sep 27, 2018 10:57
--- NOTE | 2018-09-27 11:03 | PDOC ---
Objective: Objective: Reviewed w/ RN - overnight had stool w/ a little red blood (?hemorrhoid), today had green stool. ?possible extubation Vital Signs: Vital Signs Date Time Temp Pulse Resp B/P (MAP) Pulse Ox O2 Delivery O2 Flow Rate FiO2 09/27/18 09:00 89 12 112/54 (73) 99 Ventilator 09/27/18 08:00 98.5 98.5 Labs: Laboratory Tests Test 09/26/18 11:33 09/26/18 17:56 09/26/18 23:32 09/27/18 05:35 Glucose (Fingerstick) 135 mg/dL 112 mg/dL 105 mg/dL White Blood Count 8.0 x10^3/uL Red Blood Count 2.72 x10^6/uL Hemoglobin 8.1 g/dL Hematocrit 25.0 % Mean Corpuscular Volume 92 fL Mean Corpuscular Hemoglobin 30 pg Mean Corpuscular Hemoglobin Concent 32 g/dL Red Cell Distribution Width 17.5 % Platelet Count 60 x10^3/uL Sodium Level 145 mmol/L Potassium Level 4.0 mmol/L Chloride Level 107 mmol/L Carbon Dioxide Level 32 mmol/L Anion Gap 6 Blood Urea Nitrogen 38 mg/dL Creatinine 1.2 mg/dL Estimated GFR (Cockcroft-Gault) 45.2 Glucose Level 121 mg/dL Calcium Level 7.7 mg/dL Phosphorus Level 2.9 mg/dL Magnesium Level 1.9 mg/dL Test 09/27/18 05:40 09/27/18 08:00 Glucose (Fingerstick) 108 mg/dL O2 Saturation 97 % Arterial Blood pH 7.43 Arterial Blood pCO2 at Patient Temp 45 mmHg Arterial Blood pO2 at Patient Temp 111 mmHg Arterial Blood HCO3 29 mmol/L Arterial Blood Base Excess 4 mmol/L FiO2 35 BLOOD CULTURE Final VERY TINY GRAM NEGATIVE RODS, IN THE AEROBIC BOTTLE, AT DAY 4 OF INCUBATION. 1 OF 3 BOTTLES, TWO SETS DRAWN. PE: GEN: intubated LUNGS: vent HEART: RRR ABD: S/ND/NT NEURO/PSYCH: awake A/P: Resp failure, MARII - better Anemia, thrombocytopenia - stable S/p gastric bypass -- Await possible extubation. On TPN, consider iron infusion. ZHOU BLANC Sep 27, 2018 11:03
[2018-09-27] MEDS: TPN PER PHARMACY MC PRN (12:30)
--- NOTE | 2018-09-27 12:35 | NUR ---
Pharmacy TPN Dosing Note S: ISABELL BUCIO is a 63 year old F Currently receiving Central Continuous TPN started 09/24/18 B:Pertinent PMH: Critical illness, suspected GIB Height: 5 feet, 0 inches Weight: 77.3 kg Current diet: npo LABS: Sodium: 145 Potassium: 4 Chloride: 107 Calcium: 7.7 Corrected Calcium: 8.82 Magnesium: 1.9 CO2: 32 SCr: 1.2 Glucose: 105-135 Albumin: 2.6 AST: 80 ALT: 39 TPN FORMULA: TPN TYPE: Central Continuous AMINO ACIDS: 90 gm DEXTROSE: 195 gm LIPIDS: 20 gm SODIUM CHLORIDE: 45 mEq POTASSIUM ACETATE: 35 mEq POTASSIUM PHOSPHATE: 17 mmol MAGNESIUM: 5 mEq CALCIUM: 10 mEq MULTIPLE VITAMIN: 10 ml TRACE ELEMENTS: MTE5 1ML TPN PLAN: Continue same. R: Continue TPN Will monitor electrolytes, glucose, and tolerance to TPN. Alysia Flowers [facility], 09/27/18 [id number]
[2018-09-27 13:08] LABS: BASE EXCESS ABG 3 mmol/L (-3-3); HCO3 ABG 28 mmol/L (21-28); PCO2 ABG 43 mmHg (35-46); PO2 ABG 125 mmHg (65-108); SAT O2 ABG 98 % (92-99)
[2018-09-27 14:36] LABS: FIO2 ABG 40
[2018-09-27] MEDS: FAMOTIDINE 20 MG/2 ML VIAL IVP SCH (21:14)
[2018-09-27] MEDS ORDERED: HALOPERIDOL 5 MG TABLET. PO PRN (21:15)
[2018-09-27] MEDS ORDERED: TOTAL PARENTERAL NUTRITION IV SCH ×10 (22:00)
[2018-09-27] MEDS ORDERED: DEXTROSE 70% IV SCH ×10 (22:00)
[2018-09-27] MEDS ORDERED: HALOPERIDOL LACTATE 5 MG/ML VIAL. IVP SCH (22:00)
[2018-09-27] MEDS ORDERED: [UNRECOGNIZED DRUG - OTHER] IV SCH ×10 (22:00)
[2018-09-27] MEDS ORDERED: AMINO ACID IV SCH ×10 (22:00)
[2018-09-28] VITALS (12 sets, daily range): BP systolic 117–170; BP diastolic 45–87
[2018-09-28] MEDS: PIPERACILLIN/TAZOBACTAM 3.375 GM in IV NORMAL SALINE 50ML 50 ML IV SCH ×4 (00:03→17:34)
[2018-09-28] MEDS: INSULIN LISPRO 300 UNITS/3 ML INSULN.PEN. SQ SCH ×4 (05:55→18:00)
--- NOTE | 2018-09-28 08:07 | PDOC ---
PROGRESS NOTES Subjective Subjective Patient awake and extubated. Talking but not making sense or answering questions. Objective Objective Vital Signs Date Time Temp Pulse Resp B/P (MAP) Pulse Ox O2 Delivery O2 Flow Rate FiO2 09/28/18 07:00 108 25 117/45 (69) 96 Room Air 09/28/18 04:00 2.0 09/28/18 04:00 98.9 98.9 Intake and Output 09/28/18 06:59 Intake Total 2093 ml Output Total 3895 ml Balance -1802 ml Intake Oral 0 ml IV Total 2093 ml Output Urine Total 3875 ml Oral Regurgitation 20 ml # Bowel Movements 1 Physical Exam Abdomen: Normal bowel sounds, Soft, No tenderness Heart: Regular rate Extremities: No edema General: Alert, No acute distress (mildly restless in bed) Lungs: Clear to auscultation Plan Plan of Care 1. Acute respiratory failure with possible pneumonia - extubated yesterday without problems. No hypoxia. Still on broad-spectrum abx per Pulmonary. 2. metabolic acidosis with acute renal failure - lab from this AM pending but has been stable and at baseline renal function. 3. GI bleed - stable, Hgb decreasing very slowly but no evidence of ongoing bleed at this time. 4. schizophrenia with bipolar mood disorder - alert now but appears disoriented. Had been having some problems with her mental health prior to this hospitalization, had seen Psychiatry and started on new medications. Received Haldol 10mg last night, will try 5mg tonight. Ativan available if agitation becomes a problem for her. 5. nutrition - continue TPN for now, bedside swallow evaluation ordered, hope to be able to resume po diet. 6. debility - start PT and OT, transfer out of ICU. Comment Review of Relevant I have reviewed the following items michelle (where applicable) has been applied. Labs Laboratory Tests Test 09/26/18 11:33 09/26/18 17:56 09/26/18 23:32 09/27/18 05:35 Glucose (Fingerstick) 135 mg/dL (70-99) 112 mg/dL (70-99) 105 mg/dL (70-99) White Blood Count 8.0 x10^3/uL (4.0-11.0) Red Blood Count 2.72 x10^6/uL (3.50-5.40) Hemoglobin 8.1 g/dL (12.0-15.5) Hematocrit 25.0 % (36.0-47.0) Mean Corpuscular Volume 92 fL (79-100) Mean Corpuscular Hemoglobin 30 pg (25-35) Mean Corpuscular Hemoglobin Concent 32 g/dL (31-37) Red Cell Distribution Width 17.5 % (11.5-14.5) Platelet Count 60 x10^3/uL (140-400) Sodium Level 145 mmol/L (136-145) Potassium Level 4.0 mmol/L (3.5-5.1) Chloride Level 107 mmol/L (98-107) Carbon Dioxide Level 32 mmol/L (21-32) Anion Gap 6 (6-14) Blood Urea Nitrogen 38 mg/dL (7-20) Creatinine 1.2 mg/dL (0.6-1.0) Estimated GFR (Cockcroft-Gault) 45.2 Glucose Level 121 mg/dL (70-99) Calcium Level 7.7 mg/dL (8.5-10.1) Phosphorus Level 2.9 mg/dL (2.6-4.7) Magnesium Level 1.9 mg/dL (1.8-2.4) Test 09/27/18 05:40 09/27/18 08:00 09/27/18 12:48 09/27/18 12:50 Glucose (Fingerstick) 108 mg/dL (70-99) 158 mg/dL (70-99) O2 Saturation 97 % (92-99) 98 % (92-99) Arterial Blood pH 7.43 (7.35-7.45) 7.43 (7.35-7.45) Arterial Blood pCO2 at Patient Temp 45 mmHg (35-46) 43 mmHg (35-46) Arterial Blood pO2 at Patient Temp 111 mmHg (65-108) 125 mmHg (65-108) Arterial Blood HCO3 29 mmol/L (21-28) 28 mmol/L (21-28) Arterial Blood Base Excess 4 mmol/L (-3-3) 3 mmol/L (-3-3) FiO2 35 40 Test 09/27/18 17:24 09/28/18 00:01 09/28/18 05:51 Glucose (Fingerstick) 113 mg/dL (70-99) 132 mg/dL (70-99) 129 mg/dL (70-99) Laboratory Tests Test 09/27/18 12:48 09/27/18 12:50 09/27/18 17:24 09/28/18 00:01 Glucose (Fingerstick) 158 mg/dL (70-99) 113 mg/dL (70-99) 132 mg/dL (70-99) O2 Saturation 98 % (92-99) Arterial Blood pH 7.43 (7.35-7.45) Arterial Blood pCO2 at Patient Temp 43 mmHg (35-46) Arterial Blood pO2 at Patient Temp 125 mmHg (65-108) Arterial Blood HCO3 28 mmol/L (21-28) Arterial Blood Base Excess 3 mmol/L (-3-3) FiO2 40 Test 09/28/18 05:51 Glucose (Fingerstick) 129 mg/dL (70-99) Microbiology 09/22/18 Blood Culture - Final, Complete 09/25/18 - Final, Resulted 09/25/18 - Final, Resulted 09/25/18 - Final, Resulted 09/25/18 Gram Stain Evaluation - Final, Resulted 09/25/18 Sputum Culture - Preliminary, Resulted 09/25/18 Sputum Result 1 - Final, Resulted 09/22/18 Urine Culture - Final, Complete 09/22/18 Urine Culture Result 1 (MELODY) - Final, Complete Medications Current Medications Sodium Chloride 1,000 ml @ 1,000 mls/hr 1X ONCE IV Last administered on at 17:18; Start 09/22/18 at 17:15; Stop 09/22/18 at 18:14; Status DC Pantoprazole Sodium 80 mg/ Sodium Chloride 100 ml @ 10 mls/hr Q10H IV Last administered on 09/24/18at 05:46; Start 09/22/18 at 17:15; Stop 09/24/18 at 15:43 ; Status DC Pantoprazole Sodium (PROTONIX VIAL for IV PUSH) 80 mg 1X ONCE IVP Last administered on 09/22/18at 17:39; Start 09/22/18 at 17:15; Stop 09/22/18 at 17:17 ; Status DC Ceftriaxone Sodium (Rocephin) 1 gm 1X ONCE IVP ; Start 09/22/18 at 17:30; Stop 09/22/18 at 17:30; Status DC Sodium Chloride 1,000 ml @ 1,000 mls/hr 1X ONCE IV Last administered on at 17:27; Start 09/22/18 at 17:30; Stop 09/22/18 at 18:29; Status DC Vancomycin HCl (Vanco Per Pharmacy) 1 each PRN DAILY PRN MC SEE COMMENTS Last administered on 09/24/18at 21:37; Start 09/22/18 at 17:30; Stop 09/25/18 at 12:02 ; Status DC Piperacillin Sod/ Tazobactam Sod (Zosyn Per Pharmacy) 1 each PRN DAILY PRN MC SEE COMMENTS; Start 09/22/18 at 17:30 Piperacillin Sod/ Tazobactam Sod 3.375 gm/Sodium Chloride 50 ml @ 100 mls/hr 1X ONCE IV Last administered on 09/22/18at 18:04; Start 09/22/18 at 17:30; Stop 09/22/18 at 17:59; Status DC Vancomycin HCl 1.75 gm/Sodium Chloride 500 ml @ 250 mls/hr 1X ONCE IV Last administered on 09/22/18at 23:28; Start 09/22/18 at 17:30; Stop 09/22/18 at 19:29 ; Status DC Sodium Bicarbonate (Sodium Bicarb Adult 8.4% Syr) 50 meq 1X ONCE IV Last administered on 09/22/18at 18:03; Start 09/22/18 at 17:45; Stop 09/22/18 at 17:46 ; Status DC Norepinephrine Bitartrate 250 ml @ 0 mls/hr 1X ONCE IV Last administered on at 17:51; Start 09/22/18 at 17:45; Stop 09/22/18 at 17:46; Status DC Sodium Bicarbonate 150 meq/Sterile Water 1,150 ml @ 125 mls/hr 1X ONCE IV Last administered on 09/22/18at 18:30; Start 09/22/18 at 18:30; Stop 09/23/18 at 03:41; Status DC Piperacillin Sod/ Tazobactam Sod 3.375 gm/Sodium Chloride 50 ml @ 100 mls/hr Q6HRS IV Last administered on 09/28/18at 05:55; Start 09/23/18 at 00:00 Vasopressin 40 unit/Dextrose 102 ml @ 6 mls/hr CONT PRN IV SEE I/O RECORD Last administered on 09/24/18at 12:53; Start 09/22/18 at 18:45; Stop 09/27/18 at 15:12 ; Status DC Fentanyl Citrate (Fentanyl 2ml Vial) 50 mcg 1X ONCE IV ; Start 09/22/18 at 19: 00; Stop 09/22/18 at 19:01; Status DC Midazolam HCl 100 ml @ 5 mls/hr CONT PRN IV SEE I/O RECORD Last administered on 09/25/18at 19:41; Start 09/22/18 at 19:00 Lidocaine/Sodium Bicarbonate (Buffered Lidocaine 1%) 4 ml 1X ONCE INJ Last administered on 09/22/18at 19:15; Start 09/22/18 at 19:15; Stop 09/22/18 at 19:18 ; Status DC Heparin Sodium (Porcine) (Heparin Sodium) 2,500 unit 1X ONCE INT CAT Last administered on 09/22/18at 19:15; Start 09/22/18 at 19:15; Stop 09/22/18 at 19:18 ; Status DC Heparin Sodium (Porcine) (Heparin Sodium) 10,000 unit STK-MED ONCE .ROUTE ; Start 09/22/18 at 19:17; Stop 09/22/18 at 19:18; Status DC Sodium Bicarbonate 40 meq/Potassium Chloride 15 meq/ Magnesium Sulfate 5 meq/ Calcium Chloride 2.5 meq/ Bicarbonate Dialysis Soln w/ out KCl 5,050.5172 ml @ 1 ,000 mls/hr Q5H4M IV Last administered on 09/23/18 05:02; Start 09/22/18 at 22 :00; Stop 09/23/18 at 08:43; Status DC Sodium Bicarbonate 40 meq/Potassium Chloride 15 meq/ Magnesium Sulfate 5 meq/ Calcium Chloride 2.5 meq/ Bicarbonate Dialysis Soln w/ out KCl 5,050.5172 ml @ 1 ,000 mls/hr Q5H4M IV Last administered on 09/23/18at 05:02; Start 09/22/18 at 22 :00; Stop 09/23/18 at 08:43; Status DC Sodium Bicarbonate 150 meq/Sterile Water 1,150 ml @ 300 mls/hr Q3H50M IV Last administered on 09/24/18at 05:45; Start 09/22/18 at 22:00; Stop 09/24/18 at 15:44 ; Status DC Etomidate (Amidate) 20 mg STK-MED ONCE IV ; Start 09/22/18 at 20:36; Stop at 20:37; Status DC Rocuronium [place] (Zemuron) 50 mg STK-MED ONCE .ROUTE ; Start 09/22/18 at 20:36 ; Stop 09/22/18 at 20:37; Status DC Norepinephrine Bitartrate 250 ml @ 1.875 mls/ hr CONT PRN IV SEE I/O RECORD Last administered on 09/24/18at 12:54; Start 09/22/18 at 23:30; Stop 09/27/18 at 15:53; Status DC Fentanyl Citrate (Fentanyl 2ml Vial) 50 mcg PRN Q1HR PRN IV PAIN Last administered on 09/23/18at 23:48; Start 09/22/18 at 23:30 Epinephrine HCl 4 mg/Sodium Chloride 254 ml @ 26.44 mls/ hr CONT PRN IV SEE I/ O RECORD; Start 09/23/18 at 02:15; Stop 09/27/18 at 15:53; Status DC Albuterol/ Ipratropium (Duoneb) 3 ml RTQID NEB Last administered on 09/27/18at 20:23; Start 09/23/18 at 08:00 Sodium Bicarbonate 40 meq/Potassium Chloride 15 meq/ Magnesium Sulfate 5 meq/ Calcium Chloride 17.5 meq/ Bicarbonate Dialysis Soln w/ out KCl 5,061.2315 ml @ 1,000 mls/hr Q5H4M IV Last administered on 09/23/18at 10:13; Start 09/23/18 at 10:00; Stop 09/23/18 at 10:32; Status DC Sodium Bicarbonate 40 meq/Potassium Chloride 15 meq/ Magnesium Sulfate 5 meq/ Calcium Chloride 17.5 meq/ Bicarbonate Dialysis Soln w/ out KCl 5,061.2315 ml @ 1,000 mls/hr Q5H4M IV Last administered on 09/23/18at 10:12; Start 09/23/18 at 10:00; Stop 09/23/18 at 10:33; Status DC Sodium Bicarbonate 40 meq/Potassium Chloride 15 meq/ Magnesium Sulfate 5 meq/ Calcium Chloride 5 meq/ Bicarbonate Dialysis Soln w/ out KCl 5,052.3029 ml @ 1, 000 mls/hr Q5H4M IV Last administered on 09/23/18at 15:40; Start 09/23/18 at 11: 00; Stop 09/23/18 at 19:28; Status DC Sodium Bicarbonate 40 meq/Potassium Chloride 15 meq/ Magnesium Sulfate 5 meq/ Calcium Chloride 5 meq/ Bicarbonate Dialysis Soln w/ out KCl 5,052.3029 ml @ 1, 000 mls/hr Q5H4M IV Last administered on 09/23/18at 15:39; Start 09/23/18 at 10: 45; Stop 09/23/18 at 19:28; Status DC Vancomycin HCl 1 gm/Sodium Chloride 250 ml @ 250 mls/hr Q24H IV Last administered on 09/24/18at 21:38; Start 09/23/18 at 21:00; Stop 09/25/18 at 12:02 ; Status DC Vancomycin HCl (Vancomycin Trough Level) 1 each 1X ONCE MC Last administered on 09/24/18at 20:30; Start 09/24/18 at 20:30; Stop 09/24/18 at 20:31; Status DC Potassium Chloride 15 meq/ Magnesium Sulfate 5 meq/Calcium Chloride 5 meq/ Bicarbonate Dialysis Soln w/ out KCl 5,012.3029 ml @ 1,000 mls/hr Q5H1M IV Last administered on 09/23/18at 23:50; Start 09/23/18 at 20:30; Stop 09/24/18 at 04:06; Status DC Potassium Chloride 35 meq/ Magnesium Sulfate 5 meq/Calcium Chloride 5 meq/ Bicarbonate Dialysis Soln w/ out KCl 5,022.3029 ml @ 1,000 mls/hr Q5H2M IV Last administered on 09/23/18at 23:49; Start 09/23/18 at 20:30; Stop 09/24/18 at 04:06; Status DC Fentanyl Citrate 30 ml @ 0 mls/hr CONT PRN IV SEE PROTOCOL Last administered on 09/27/18at 07:03; Start 09/23/18 at 22:30; Stop 09/27/18 at 15:53; Status DC Chlorhexidine Gluconate (Peridex) 15 ml BID MM Last administered on 09/24/18at 21:41; Start 09/24/18 at 09:00; Stop 09/25/18 at 09:30; Status DC Potassium Chloride 15 meq/ Magnesium Sulfate 2.5 meq/Calcium Chloride 5 meq/ Bicarbonate Dialysis Soln w/ out KCl 5,011.6871 ml @ 1,000 mls/hr Q5H1M IV Last administered on 09/24/18at 04:34; Start 09/24/18 at 04:30; Stop 09/24/18 at 17:00; Status DC Potassium Chloride 35 meq/ Magnesium Sulfate 2.5 meq/Calcium Chloride 5 meq/ Bicarbonate Dialysis Soln w/ out KCl 5,021.6871 ml @ 1,000 mls/hr Q5H2M IV Last administered on 09/24/18at 04:34; Start 09/24/18 at 04:30; Stop 09/24/18 at 17:00; Status DC Sodium Chloride 90 meq/Potassium Chloride 50 meq/ Potassium Phosphate 13.6 mmol/ Magnesium Sulfate 10 meq/ Calcium Gluconate 10 meq/ Multivitamins 10 ml/Chromium / Copper/Manganese/ Seleni/Zn 1 ml/ Total Parenteral Nutrition/Amino Acids/ Dextrose/ Fat Emulsion Intravenous 87.0013 ml @ 3.625 mls/hr TPN CONT IV ; Start 09/24/18 at 22:00; Stop 09/25/18 at 21:59; Status UNV Info (Tpn Per Pharmacy) 1 each PRN DAILY PRN MC SEE COMMENTS Last administered on 09/27/18at 12:30; Start 09/24/18 at 08:15 Sodium Acetate 45 meq/Potassium Acetate 25 meq/ Potassium Phosphate 13.6 mmol/ Magnesium Sulfate 10 meq/ Calcium Gluconate 10 meq/ Multivitamins 10 ml/Chromium / Copper/Manganese/ Seleni/Zn 1 ml/ Total Parenteral Nutrition/Amino Acids/ Dextrose/ Fat Emulsion Intravenous 1,422 ml @ 59.25 mls/ hr TPN CONT IV Last administered on 09/24/18at 22:50; Start 09/24/18 at 22:00; Stop 09/25/18 at 21:59 ; Status DC Potassium Chloride/Water 50 ml @ 50 mls/hr Q1H IV Last administered on at 10:39; Start 09/25/18 at 09:00; Stop 09/25/18 at 10:59; Status DC Insulin Human Lispro (HumaLOG) 0-5 UNITS Q6HRS SQ Last administered on at 12:50; Start 09/25/18 at 12:00 Dextrose (Dextrose 50%-Water Syringe) 12.5 gm PRN Q15MIN PRN IV SEE COMMENTS; Start 09/25/18 at 09:30 Famotidine (Pepcid Vial) 20 mg QHS IVP Last administered on 09/27/18at 21:14; Start 09/25/18 at 21:00 Linezolid/Dextrose 300 ml @ 300 mls/hr Q12HR IV Last administered on at 21:14; Start 09/25/18 at 13:00 Pantoprazole Sodium (PROTONIX VIAL for IV PUSH) 40 mg DAILYAC IVP ; Start at 13:00; Stop 09/25/18 at 13:00; Status DC Sodium Chloride 45 meq/Potassium Acetate 35 meq/ Potassium Phosphate 17 mmol/ Magnesium Sulfate 5 meq/Calcium Gluconate 10 meq/ Multivitamins 10 ml/Chromium/ Copper/Manganese/ Seleni/Zn 1 ml/ Total Parenteral Nutrition/Amino Acids/ Dextrose/ Fat Emulsion Intravenous 1,512 ml @ 63 mls/hr TPN CONT IV Last administered on 09/25/18at 22:10; Start 09/25/18 at 22:00; Stop 09/26/18 at 13:53 ; Status DC Sodium Phosphate 10 mmol/Dextrose 253.3333 ml @ 63.333 m... 1X ONCE IV Last administered on 09/25/18at 16:16; Start 09/25/18 at 16:00; Stop 09/25/18 at 19:59 ; Status DC Amitriptyline HCl (Elavil) 25 mg QHS PO ; Start 09/26/18 at 21:00; Status UNV Non-Formulary Medication (Desvenlafaxine Succinate (Pristiq Er)) 1 tab DAILY PO ; Start 09/27/18 at 09:00; Status UNV Haloperidol (Haldol) 10 mg HS PO Last administered on 09/26/18at 21:20; Start at 21:00; Stop 09/27/18 at 21:07; Status DC Sodium Chloride 45 meq/Potassium Acetate 35 meq/ Potassium Phosphate 17 mmol/ Magnesium Sulfate 5 meq/Calcium Gluconate 10 meq/ Multivitamins 10 ml/Chromium/ Copper/Manganese/ Seleni/Zn 1 ml/ Total Parenteral Nutrition/Amino Acids/ Dextrose/ Fat Emulsion Intravenous 1,512 ml @ 63 mls/hr TPN CONT IV ; Start at 22:00; Stop 09/27/18 at 21:59; Status Cancel Sodium Chloride 45 meq/Potassium Acetate 35 meq/ Potassium Phosphate 17 mmol/ Magnesium Sulfate 5 meq/Calcium Gluconate 10 meq/ Multivitamins 10 ml/Chromium/ Copper/Manganese/ Seleni/Zn 1 ml/ Total Parenteral Nutrition/Amino Acids/ Dextrose/ Fat Emulsion Intravenous 1,512 ml @ 63 mls/hr TPN CONT IV Last administered on 09/26/18at 21:31; Start 09/26/18 at 22:00; Stop 09/27/18 at 21:59 ; Status DC Lorazepam (Ativan) 0.5 mg PRN Q6HRS PRN PO ANXIETY / AGITATION; Start 09/27/18 at 08:15 Sodium Chloride 45 meq/Potassium Acetate 35 meq/ Potassium Phosphate 17 mmol/ Magnesium Sulfate 5 meq/Calcium Gluconate 10 meq/ Multivitamins 10 ml/Chromium/ Copper/Manganese/ Seleni/Zn 1 ml/ Total Parenteral Nutrition/Amino Acids/ Dextrose/ Fat Emulsion Intravenous 1,512 ml @ 63 mls/hr TPN CONT IV Last administered on 09/27/18at 21:34; Start 09/27/18 at 22:00; Stop 09/28/18 at 21:59 Haloperidol Lactate (Haldol Inj) 10 mg HS IVP Last administered on 09/27/18at 21 :33; Start 09/27/18 at 22:00 Lorazepam (Ativan) 0.5 mg PRN Q6HRS PRN IV ANXIETY / AGITATION Last administered on 09/28/18at 03:22; Start 09/27/18 at 21:15 Haloperidol (Haldol) 10 mg PRN QHS PRN PO AGITATION IF TAKING PO; Start at 21:15 Active Scripts Active Reported [iron] 325 Mg PO Haloperidol 10 Mg Tablet 10 Mg PO QHS Ventolin Hfa Inhaler (Albuterol Sulfate) 18 Gm Hfa.aer.ad 2 Puff INH Q4HRS PRN Pristiq Er (Desvenlafaxine Succinate) 50 Mg Tab.er.24h 1 Tab PO DAILY Amitriptyline Hcl 25 Mg Tablet 1 Tab PO QHS Diazepam 5 Mg Tablet 5 Mg PO TID Gabapentin (Gabapentin) 300 Mg Capsule 300 Mg PO TID Vitals/I & O Vital Sign - Last 24 Hours 09/27/18 09/27/18 09/27/18 09/27/18 08:56 09:00 10:00 11:00 Pulse 89 94 88 Resp 12 14 12 B/P (MAP) 112/54 (73) 107/69 (82) 120/62 (81) Pulse Ox 100 99 99 99 O2 Delivery Ventilator Ventilator Ventilator Ventilator 09/27/18 09/27/18 09/27/18 09/27/18 11:08 12:00 12:00 13:00 Temp 99.0 99.0 Pulse 104 100 Resp 15 22 B/P (MAP) 138/78 (98) 124/82 (96) Pulse Ox 100 99 99 O2 Delivery Ventilator Ventilator Mechanical Ventilator Ventilator 09/27/18 09/27/18 09/27/18 09/27/18 14:00 15:00 15:51 16:00 Temp 98.4 98.4 Pulse 98 98 104 Resp 20 24 25 B/P (MAP) 139/64 (89) 128/64 (85) 156/78 (104) Pulse Ox 98 98 97 98 O2 Delivery Nasal Cannula Nasal Cannula Nasal Cannula Nasal Cannula O2 Flow Rate 2.0 2.0 2.0 2.0 09/27/18 09/27/18 09/27/18 09/27/18 16:00 17:00 18:00 19:00 Pulse 106 108 105 Resp 24 23 21 B/P (MAP) 118/51 (73) 122/69 (86) 119/55 (76) Pulse Ox 99 99 99 O2 Delivery Nasal Cannula Nasal Cannula Nasal Cannula Nasal Cannula O2 Flow Rate 2.0 2.0 2.0 2.0 09/27/18 09/27/18 09/27/18 09/27/18 20:00 20:00 20:24 21:00 Temp 98.2 98.2 Pulse 106 108 Resp 18 25 B/P (MAP) 125/67 (86) 123/65 (84) Pulse Ox 99 97 99 O2 Delivery Room Air Nasal Cannula Nasal Cannula Room Air O2 Flow Rate 2.0 2.0 09/27/18 09/27/18 09/28/18 09/28/18 22:06 23:00 00:00 00:00 Pulse 109 102 104 Resp 17 15 25 B/P (MAP) 127/84 (98) 121/67 (85) 123/74 (90) Pulse Ox 96 94 96 O2 Delivery Room Air Room Air Nasal Cannula Room Air O2 Flow Rate 2.0 09/28/18 09/28/18 09/28/18 09/28/18 01:00 02:00 03:00 04:00 Temp 98.5 98.9 98.5 98.9 Pulse 102 108 114 113 Resp 25 26 24 33 B/P (MAP) 125/61 (82) 119/58 (78) 143/76 (98) 136/63 (87) Pulse Ox 95 95 95 95 O2 Delivery Room Air Room Air Room Air Room Air 09/28/18 09/28/18 09/28/18 09/28/18 04:00 05:00 06:00 07:00 Pulse 111 113 108 Resp 24 23 25 B/P (MAP) 141/81 (101) 119/50 (73) 117/45 (69) Pulse Ox 95 96 96 O2 Delivery Nasal Cannula Room Air Room Air Room Air O2 Flow Rate 2.0 Intake and Output 09/27/18 09/27/18 09/28/18 14:59 22:59 06:59 Intake Total 107 ml 808 ml 1178 ml Output Total 875 ml 1295 ml 1725 ml Balance -768 ml -487 ml -547 ml MILY COOK MD Sep 28, 2018 08:07
[2018-09-28] MEDS: IPRATRPIUM/ALBUTEROL 0.5/2.5MG 3 ML NEBU. NEB SCH ×5 (08:50→19:50)
--- NOTE | 2018-09-28 08:55 | RAD ---
PORTABLE CHEST 1V Clinical indications: RESPIRATORY FAILURE COMPARISON: 09/26/2018. Findings: ET tube and NG tube have been removed. Right IJ central line is unchanged in position. No acute lung infiltrate or pleural effusion or pulmonary edema or lung mass or pneumothorax is seen. The heart size, pulmonary vasculature, mediastinum and both lulu are stable. Old healed rib fractures are evident. Bilateral shoulder prostheses are present. Surgical clips are seen in the epigastric area. Impression: No acute radiographic abnormality is seen. Electronically signed by: Collin Morales MD (09/28/2018 8:52 AM) [facility]
--- NOTE | 2018-09-28 09:19 | PDOC ---
PULMONARY PROGRESS NOTES Subjective PT OFF 02 EXTUBATED 09/27 CONFUSED NOT SOA Vitals Vital Signs Date Time Temp Pulse Resp B/P (MAP) Pulse Ox O2 Delivery O2 Flow Rate FiO2 09/28/18 08:51 Room Air 09/28/18 07:00 108 25 117/45 (69) 96 09/28/18 04:00 98.9 98.9 General: Alert Lungs: Clear, Other (decrease bs) Cardiovascular: S1, S2 Abdomen: Soft, Non-tender Neuro Exam: Alert Extremities: Other (1+edema) Labs Laboratory Tests Test 09/26/18 11:33 09/26/18 17:56 09/26/18 23:32 09/27/18 05:35 Glucose (Fingerstick) 135 mg/dL (70-99) 112 mg/dL (70-99) 105 mg/dL (70-99) White Blood Count 8.0 x10^3/uL (4.0-11.0) Red Blood Count 2.72 x10^6/uL (3.50-5.40) Hemoglobin 8.1 g/dL (12.0-15.5) Hematocrit 25.0 % (36.0-47.0) Mean Corpuscular Volume 92 fL (79-100) Mean Corpuscular Hemoglobin 30 pg (25-35) Mean Corpuscular Hemoglobin Concent 32 g/dL (31-37) Red Cell Distribution Width 17.5 % (11.5-14.5) Platelet Count 60 x10^3/uL (140-400) Sodium Level 145 mmol/L (136-145) Potassium Level 4.0 mmol/L (3.5-5.1) Chloride Level 107 mmol/L (98-107) Carbon Dioxide Level 32 mmol/L (21-32) Anion Gap 6 (6-14) Blood Urea Nitrogen 38 mg/dL (7-20) Creatinine 1.2 mg/dL (0.6-1.0) Estimated GFR (Cockcroft-Gault) 45.2 Glucose Level 121 mg/dL (70-99) Calcium Level 7.7 mg/dL (8.5-10.1) Phosphorus Level 2.9 mg/dL (2.6-4.7) Magnesium Level 1.9 mg/dL (1.8-2.4) Test 09/27/18 05:40 09/27/18 08:00 09/27/18 12:48 09/27/18 12:50 Glucose (Fingerstick) 108 mg/dL (70-99) 158 mg/dL (70-99) O2 Saturation 97 % (92-99) 98 % (92-99) Arterial Blood pH 7.43 (7.35-7.45) 7.43 (7.35-7.45) Arterial Blood pCO2 at Patient Temp 45 mmHg (35-46) 43 mmHg (35-46) Arterial Blood pO2 at Patient Temp 111 mmHg (65-108) 125 mmHg (65-108) Arterial Blood HCO3 29 mmol/L (21-28) 28 mmol/L (21-28) Arterial Blood Base Excess 4 mmol/L (-3-3) 3 mmol/L (-3-3) FiO2 35 40 Test 09/27/18 17:24 09/28/18 00:01 09/28/18 05:51 Glucose (Fingerstick) 113 mg/dL (70-99) 132 mg/dL (70-99) 129 mg/dL (70-99) Laboratory Tests Test 09/27/18 12:48 09/27/18 12:50 09/27/18 17:24 09/28/18 00:01 Glucose (Fingerstick) 158 mg/dL (70-99) 113 mg/dL (70-99) 132 mg/dL (70-99) O2 Saturation 98 % (92-99) Arterial Blood pH 7.43 (7.35-7.45) Arterial Blood pCO2 at Patient Temp 43 mmHg (35-46) Arterial Blood pO2 at Patient Temp 125 mmHg (65-108) Arterial Blood HCO3 28 mmol/L (21-28) Arterial Blood Base Excess 3 mmol/L (-3-3) FiO2 40 Test 09/28/18 05:51 Glucose (Fingerstick) 129 mg/dL (70-99) Medications Active Scripts Medications Dose Route/Sig Max Daily Dose Days Date Category [iron] 325 Mg PO 09/23/18 Reported Haloperidol 10 Mg Tablet 10 Mg PO QHS 09/23/18 Reported Ventolin Hfa Inhaler (Albuterol Sulfate) 18 Gm Hfa.aer.ad 2 Puff INH Q4HRS PRN 07/04/18 Reported Pristiq Er (Desvenlafaxine Succinate) 50 Mg Tab.er.24h 1 Tab PO DAILY 07/01/18 Reported Amitriptyline Hcl 25 Mg Tablet 1 Tab PO QHS 07/01/18 Reported Diazepam 5 Mg Tablet 5 Mg PO TID 07/01/18 Reported Gabapentin (Gabapentin) 300 Mg Capsule 300 Mg PO TID 07/01/18 Reported Impression . 1. Acute respiratory failure, multifactorial in etiology including shock, acute kidney injury 2. SEPTIC SHOCK 3. Abnormal CT of the chest with left lower lobe dense atelectasis/ PNEUMONIA 4. Acute kidney injury. 5. Electrolyte abnormality. 6. Gastrointestinal bleeding. 7. Hypotension. 8. Severe metabolic acidosis secondary to shock and acute kidney injury 09/26 Impression: Resolution of left lung base atelectasis. No new abnormality. Plan . EXTUBATED 09/27 OFF 02 WILL MONITOR RESP STATUS IS COMPENSATED FOLLOW NEPHRO ALL CULTURES NEGATIVE ANTIBX DVT GI PROPHYLAXIS TPN FOR NUTRITION START ENTERAL FEEDING WHEN OK WITH GI TITO ZAPATA MD Sep 28, 2018 09:18
--- NOTE | 2018-09-28 10:40 | PDOC ---
Subjective: Subjective: "Hey baby! I been in a war. Do you have my stanley?" Objective: Vital Signs: Vital Signs Date Time Temp Pulse Resp B/P (MAP) Pulse Ox O2 Delivery O2 Flow Rate FiO2 09/28/18 08:51 Room Air 09/28/18 07:00 108 25 117/45 (69) 96 09/28/18 04:00 98.9 98.9 Labs: Laboratory Tests Test 09/27/18 12:48 09/27/18 12:50 09/27/18 17:24 09/28/18 00:01 Glucose (Fingerstick) 158 mg/dL 113 mg/dL 132 mg/dL O2 Saturation 98 % Arterial Blood pH 7.43 Arterial Blood pCO2 at Patient Temp 43 mmHg Arterial Blood pO2 at Patient Temp 125 mmHg Arterial Blood HCO3 28 mmol/L Arterial Blood Base Excess 3 mmol/L FiO2 40 Test 09/28/18 05:51 Glucose (Fingerstick) 129 mg/dL ORDERED: SPUTUM CULTURE Procedure Result GRAM STAIN WHITE BLOOD CELLS Final None seen GRAM STAIN EPITHELIAL CELLS Final None seen GRAM STAIN RESULT 1 Final Gram positive cocci Rare seen This is a corrected report. The previously reported result was: ========Test Result Units=======Date Resulted= Possible contamination. Results repeated. GRAM STAIN EVALUATION Final Comment This specimen is of good quality and is acceptable for routine bacterial culture. Performed at: [facility] - [facility] [address], [place], [place] [id number] Rubber Chemist: SIMON Mehta MD, Phone: [phone] SPUTUM CULTURE-LC Final Final report SPUTUM CULT RES 1 Final Yeast isolated. 2+ Request for further identification must be made within 1 week. * This is a corrected result. * A prior result that was reported as final has been changed. SPEC: [id number] PATIENT: ISABELL BUCIO [id number] ( Continued) Procedure Result SPUTUM CULT RES 2 Final Comment Routine respiratory urbano Imaging: CXR Impression: No acute radiographic abnormality is seen. PE: GEN: NAD LUNGS: CTAB HEART: RRR ABD: S/ND/NT - rectal tube w/ liquid brown stool NEURO/PSYCH: confused A/P: Resp failure - now extubated Confusion Anemia, thrombocytopenia Diarrhea - rectal tube S/p gastric bypass -- Await TELETYPE OPERATOR eval. Check stool tests if indicated. ZHOU BLANC Sep 28, 2018 10:40
--- NOTE | 2018-09-28 11:26 | PDOC ---
Renal-Progress Notes Subjective Notes Notes CONFUSED History of Present Illness Hx of present illness BETTER Vitals Vitals Vital Signs Date Time Temp Pulse Resp B/P (MAP) Pulse Ox O2 Delivery O2 Flow Rate FiO2 09/28/18 10:58 99.7 111 20 143/64 (90) 96 Room Air 99.7 09/28/18 08:51 Weight Weight [ ] I.O. Intake and Output Intake and Output 09/28/18 07:00 Intake Total 2093 ml Output Total 4030 ml Balance -1937 ml Intake Oral 0 ml IV Total 2093 ml Output Urine Total 4010 ml Oral Regurgitation 20 ml # Bowel Movements 1 Labs Labs Laboratory Tests Test 09/27/18 12:48 09/27/18 12:50 09/27/18 17:24 09/28/18 00:01 Glucose (Fingerstick) 158 mg/dL (70-99) 113 mg/dL (70-99) 132 mg/dL (70-99) O2 Saturation 98 % (92-99) Arterial Blood pH 7.43 (7.35-7.45) Arterial Blood pCO2 at Patient Temp 43 mmHg (35-46) Arterial Blood pO2 at Patient Temp 125 mmHg (65-108) Arterial Blood HCO3 28 mmol/L (21-28) Arterial Blood Base Excess 3 mmol/L (-3-3) FiO2 40 Test 09/28/18 05:51 Glucose (Fingerstick) 129 mg/dL (70-99) Micro Micro Microbiology 09/22/18 Blood Culture - Final, Complete 09/25/18 - Final, Complete 09/25/18 - Final, Complete 09/25/18 - Final, Complete 09/25/18 Gram Stain Evaluation - Final, Complete 09/25/18 Sputum Culture - Final, Complete 09/25/18 Sputum Result 1 - Final, Complete 09/25/18 Sputum Result 2 - Final, Complete 09/22/18 Urine Culture - Final, Complete 09/22/18 Urine Culture Result 1 (MELODY) - Final, Complete Review of Systems Constitutional: yes: unresponsive Physical Exam General Appearance: no apparent distress Skin: warm Respiratory: decreased breath sounds Heart: S1S2, RRR Abdomen: soft, bowel sounds present Genitourinary: bladder flat Extremities: pulses present Neurology: confused, other (SEDATED) Assessment Assessment IMP MARII-RESOLVED ACUTE RESP FAILURE SHOCK-SEPSIS ? PNEUMONIA ANEMIA ?GIB MET ACIDOSIS-RESOLVED ANEMIA PLAN OUT OF ICU AND OFF PRESSORS MARII RESOLVED I WILL SIGN OFF MACKENZIE THOMAS MD Sep 28, 2018 11:25
[2018-09-28] MEDS: TPN PER PHARMACY MC PRN ×2 (12:16→13:40)
[2018-09-28 13:20] LABS: HEMOGLOBIN 8.7 g/dL (12.0-15.5); RED BLOOD COUNT 2.84 x10^6/uL (3.50-5.40); WHITE BLOOD COUNT 8.2 x10^3/uL (4.0-11.0)
[2018-09-28 13:32] LABS: CALCIUM 7.9 mg/dL (8.5-10.1); CREATININE 1.2 mg/dL (0.6-1.0); GFR 45.2; POTASSIUM 3.8 mmol/L (3.5-5.1)
--- NOTE | 2018-09-28 13:57 | NUR ---
Pharmacy TPN Dosing Note S: ISABELL BUCIO is a 63 year old F Currently receiving Central Continuous TPN started 09/24/18 B:Pertinent PMH: Critical illness, suspected GIB Height: 5 feet, 0 inches Weight: 75.616839 kg Current diet: npo LABS: Sodium: 145 Potassium: 3.8 Chloride: 107 Calcium: 7.9 Corrected Calcium: 9.02 Magnesium: 1.9 CO2: 26 SCr: 1.2 Glucose: 135 Albumin: 2.6 AST: 80 ALT: 39 TPN FORMULA: TPN TYPE: Central Continuous AMINO ACIDS: 60 g gm DEXTROSE: 225 g gm LIPIDS: 20 gm SODIUM CHLORIDE: 45 mEq SODIUM ACETATE: - mEq SODIUM PHOSPHATE: mmol POTASSIUM CHLORIDE: mEq POTASSIUM ACETATE: 35 mEq POTASSIUM PHOSPHATE: 17 mmol MAGNESIUM: 5 mEq CALCIUM: 10 mEq INSULIN: - units MULTIPLE VITAMIN: 10 ml TRACE ELEMENTS: MTE5 1ML ml(s) TPN PLAN: Continue TPN with a change in macro nutrients as recommended by the swing tender R: Continue TPN as per the above Will monitor electrolytes, glucose, and tolerance to TPN. EMANI LUONG [facility], 09/28/18 [id number]
[2018-09-28] MEDS: HALOPERIDOL 5 MG TABLET. PO SCH (21:00)
[2018-09-28] MEDS: FAMOTIDINE 20 MG/2 ML VIAL IVP SCH (21:00)
[2018-09-28] MEDS ORDERED: TOTAL PARENTERAL NUTRITION IV SCH ×10 (22:00)
[2018-09-28] MEDS ORDERED: [UNRECOGNIZED DRUG - OTHER] IV SCH ×10 (22:00)
[2018-09-28] MEDS ORDERED: AMINO ACID IV SCH ×10 (22:00)
[2018-09-28] MEDS ORDERED: DEXTROSE 70% IV SCH ×10 (22:00)
--- NOTE | 2018-09-28 23:43 | RAD ---
CHEST AP ONLY Clinical Indication: PICC line placement Comparison: 09/28/2018 portable chest x-ray exam. Findings: Right internal jugular dialysis catheter again noted. PICC is not seen. No pneumothorax. Bilateral shoulder joint prostheses noted. Epigastric surgical clips. Suture material involves the left upper quadrant. The cardiomediastinal silhouette is normal. Lungs are clear. There is no pneumothorax. No pleural effusion is appreciated. No acute bone abnormality. Old left-sided rib fractures appear to be present. IMPRESSION: No acute cardiopulmonary process. PICC is not seen. Correlate clinically in determining further imaging. Electronically signed by: West Hopkins MD (09/28/2018 11:40 PM) [facility]
[2018-09-29] MEDS: PIPERACILLIN/TAZOBACTAM 3.375 GM in IV NORMAL SALINE 50ML 50 ML IV SCH ×5 (00:20→23:51)
[2018-09-29] MEDS: INSULIN LISPRO 300 UNITS/3 ML INSULN.PEN. SQ SCH ×5 (00:26→23:54)
[2018-09-29 03:50] VITALS: BP 132/77
[2018-09-29 06:45] LABS: HEMATOCRIT 26.8 % (36.0-47.0); HEMOGLOBIN 8.8 g/dL (12.0-15.5); RED BLOOD COUNT 2.96 x10^6/uL (3.50-5.40); RED CELL DISTRIBUTION WIDTH 16.8 % (11.5-14.5); WHITE BLOOD COUNT 7.3 x10^3/uL (4.0-11.0)
[2018-09-29 08:00] VITALS: BP 139/67
[2018-09-29] MEDS: IPRATRPIUM/ALBUTEROL 0.5/2.5MG 3 ML NEBU. NEB SCH ×4 (08:09→18:59)
[2018-09-29 08:10] LABS: CALCIUM 8.1 mg/dL (8.5-10.1); CREATININE 1.1 mg/dL (0.6-1.0); POTASSIUM 3.9 mmol/L (3.5-5.1)
[2018-09-29 11:00] VITALS: BP 146/75
[2018-09-29] MEDS ORDERED: ONDANSETRON PF 4 MG/2 ML VIAL. IV PRN (11:30)
[2018-09-29] MEDS: TPN PER PHARMACY MC PRN (12:11)
--- NOTE | 2018-09-29 12:11 | NUR ---
Pharmacy TPN Dosing Note S: ISABELL BUCIO is a 63 year old F Currently receiving Central Continuous TPN started 09/24/18 B:Pertinent PMH: Critical illness, suspected GIB Current diet: DYSPHAGIA LABS: Sodium: 147 Potassium: 3.9 Chloride: 110 Calcium: 8.1 Corrected Calcium: 9.22 Magnesium: 1.9 CO2: 26 SCr: 1.2 Glucose: 135 Albumin: 2.6 AST: 80 ALT: 39 TPN FORMULA: TPN TYPE: Central Continuous AMINO ACIDS: 60 g gm DEXTROSE: 225 g gm LIPIDS: 20 gm SODIUM CHLORIDE: 40 mEq SODIUM ACETATE: - mEq SODIUM PHOSPHATE: - mmol POTASSIUM CHLORIDE: - mEq POTASSIUM ACETATE: 35 mEq POTASSIUM PHOSPHATE: 17 mmol MAGNESIUM: 5 mEq CALCIUM: 10 mEq INSULIN: - units MULTIPLE VITAMIN: 10 ml TRACE ELEMENTS: MTE5 1ML ml(s) TPN PLAN: 3/2 SLIGHT DECREASE IN NaCl DUE TO LABS TRENDING UP R: Change TPN Will monitor electrolytes, glucose, and tolerance to TPN. REGINALDO ORR [facility], 09/29/18 121
--- NOTE | 2018-09-29 12:20 | PDOC ---
SUBJECTIVE Subjective Pt took out HD catheter. More somnolent today OBJECTIVE Vital Signs Vital Signs Date Time Temp Pulse Resp B/P (MAP) Pulse Ox O2 Delivery O2 Flow Rate FiO2 09/29/18 11:28 97 Room Air 09/29/18 08:12 97 Room Air 09/29/18 08:00 Room Air 09/29/18 08:00 99.6 107 20 139/67 (91) 94 Room Air 99.6 09/29/18 03:50 99.0 111 18 132/77 (95) 97 Room Air 99.0 09/28/18 23:44 98.0 113 16 170/87 (114) 94 Room Air 98.0 09/28/18 19:59 98.2 111 16 169/70 (103) 95 98.2 09/28/18 19:54 97 Room Air 09/28/18 19:49 Room Air 09/28/18 15:15 97.8 80 18 124/61 (82) 97 Room Air 97.8 09/28/18 14:55 Room Air I & O Intake and Output 09/29/18 06:59 Intake Total 1512 ml Output Total 3815 ml Balance -2303 ml Intake Oral 0 ml IV Total 1512 ml Output Urine Total 2865 ml Stool Total 950 ml PHYSICAL EXAM Physical Exam GEN: NAD, awakens but does not respond to my questions, not moving extremities, not following commands HEENT: MMM, EOMI, no scleral icterus/injection Cardiac: tachycardic, no M/R/G Lungs: CTAB, regular breathing rate and effort Abd: NBS, NTTP Ext: no erythema/edema LE bilaterally ASSESSMENT/PLAN Assessment/Plan Pt is a 63yo CF admitted with altered mental status 1. Altered mental status- mutlifactorial 2. Acute respiratory failure with possible pneumonia - pt extubated with no complications. Pulmonary following. Pt currently receiving Zosyn. 3. metabolic acidosis with acute renal failure - resolved 4. GI bleed - stable, Hgb decreasing very slowly but no evidence of ongoing bleed at this time. 5. schizophrenia with bipolar mood disorder - alert now but appears disoriented. Had been having some problems with her mental health prior to this hospitalization, had seen Psychiatry and started on new medications. Received Haldol 10mg last night, will try 5mg tonight. Ativan available if agitation becomes a problem for her. 6. nutrition - HD catheter removed, will get PICC placed to continue TPN for now. 7. debility - PT and OT 8. Thrombocytopenia- improving COMMENT Lab Laboratory Tests Test 09/28/18 12:34 09/28/18 13:05 09/28/18 18:11 09/29/18 00:25 Glucose (Fingerstick) 147 mg/dL (70-99) 138 mg/dL (70-99) 142 mg/dL (70-99) White Blood Count 8.2 x10^3/uL (4.0-11.0) Red Blood Count 2.84 x10^6/uL (3.50-5.40) Hemoglobin 8.7 g/dL (12.0-15.5) Hematocrit 26.0 % (36.0-47.0) Mean Corpuscular Volume 92 fL (79-100) Mean Corpuscular Hemoglobin 31 pg (25-35) Mean Corpuscular Hemoglobin Concent 33 g/dL (31-37) Red Cell Distribution Width 17.0 % (11.5-14.5) Platelet Count 79 x10^3/uL (140-400) Sodium Level 145 mmol/L (136-145) Potassium Level 3.8 mmol/L (3.5-5.1) Chloride Level 107 mmol/L (98-107) Carbon Dioxide Level 26 mmol/L (21-32) Anion Gap 12 (6-14) Blood Urea Nitrogen 34 mg/dL (7-20) Creatinine 1.2 mg/dL (0.6-1.0) Estimated GFR (Cockcroft-Gault) 45.2 Glucose Level 135 mg/dL (70-99) Calcium Level 7.9 mg/dL (8.5-10.1) Test 09/29/18 06:07 09/29/18 06:25 Glucose (Fingerstick) 137 mg/dL (70-99) White Blood Count 7.3 x10^3/uL (4.0-11.0) Red Blood Count 2.96 x10^6/uL (3.50-5.40) Hemoglobin 8.8 g/dL (12.0-15.5) Hematocrit 26.8 % (36.0-47.0) Mean Corpuscular Volume 91 fL (79-100) Mean Corpuscular Hemoglobin 30 pg (25-35) Mean Corpuscular Hemoglobin Concent 33 g/dL (31-37) Red Cell Distribution Width 16.8 % (11.5-14.5) Platelet Count 103 x10^3/uL (140-400) Sodium Level 147 mmol/L (136-145) Potassium Level 3.9 mmol/L (3.5-5.1) Chloride Level 110 mmol/L (98-107) Carbon Dioxide Level 23 mmol/L (21-32) Anion Gap 14 (6-14) Blood Urea Nitrogen 29 mg/dL (7-20) Creatinine 1.1 mg/dL (0.6-1.0) Estimated GFR (Cockcroft-Gault) 50.0 Glucose Level 134 mg/dL (70-99) Calcium Level 8.1 mg/dL (8.5-10.1) TRUONG THOMAS MD Sep 29, 2018 12:20
[2018-09-29 14:56] VITALS: BP 145/77
[2018-09-29] MEDS ORDERED: HALOPERIDOL LACTATE 5 MG/ML VIAL. IM ONE (15:15)
--- NOTE | 2018-09-29 16:24 | RAD ---
AP portable chest 09/29/2018. Reason for exam: PICC line placement. Comparison is made with a study done earlier in the day. A left side PICC line is now seen. Its tip probably reaches the right atrium. No new infiltrate or effusion is evident. IMPRESSION: Placement of PICC line as discussed above. There was a subsequent radiograph. Electronically signed by: Xavier Umana Jr., MD (09/29/2018 4:20 PM) [facility] [place]
--- NOTE | 2018-09-29 16:24 | RAD ---
AP portable chest 09/29/2018. Reason for exam: PICC line adjustment. Comparison is made with a study done earlier in the afternoon. The PICC line appears to have been retracted slightly and its tip is near the cavoatrial junction or upper right atrium. No new infiltrate is developed. Heart size is unchanged. IMPRESSION: Probable slight retraction of the PICC line. Electronically signed by: Xavier Umana Jr., MD (09/29/2018 4:21 PM) [facility] [place]
--- NOTE | 2018-09-29 17:15 | PDOC ---
PULMONARY PROGRESS NOTES Subjective PT OFF 02 EXTUBATED 09/27 CONFUSED NOT SOA Vitals Vital Signs Date Time Temp Pulse Resp B/P (MAP) Pulse Ox O2 Delivery O2 Flow Rate FiO2 09/29/18 14:56 100.2 111 18 145/77 (99) 95 Room Air 100.2 09/28/18 08:51 General: Alert Lungs: Clear, Other (decrease bs) Cardiovascular: S1, S2 Abdomen: Soft, Non-tender Neuro Exam: Alert Extremities: Other (1+edema) Labs Laboratory Tests Test 09/27/18 17:24 09/28/18 00:01 09/28/18 05:51 09/28/18 12:34 Glucose (Fingerstick) 113 mg/dL (70-99) 132 mg/dL (70-99) 129 mg/dL (70-99) 147 mg/dL (70-99) Test 09/28/18 13:05 09/28/18 18:11 09/29/18 00:25 09/29/18 06:07 White Blood Count 8.2 x10^3/uL (4.0-11.0) Red Blood Count 2.84 x10^6/uL (3.50-5.40) Hemoglobin 8.7 g/dL (12.0-15.5) Hematocrit 26.0 % (36.0-47.0) Mean Corpuscular Volume 92 fL (79-100) Mean Corpuscular Hemoglobin 31 pg (25-35) Mean Corpuscular Hemoglobin Concent 33 g/dL (31-37) Red Cell Distribution Width 17.0 % (11.5-14.5) Platelet Count 79 x10^3/uL (140-400) Sodium Level 145 mmol/L (136-145) Potassium Level 3.8 mmol/L (3.5-5.1) Chloride Level 107 mmol/L (98-107) Carbon Dioxide Level 26 mmol/L (21-32) Anion Gap 12 (6-14) Blood Urea Nitrogen 34 mg/dL (7-20) Creatinine 1.2 mg/dL (0.6-1.0) Estimated GFR (Cockcroft-Gault) 45.2 Glucose Level 135 mg/dL (70-99) Calcium Level 7.9 mg/dL (8.5-10.1) Glucose (Fingerstick) 138 mg/dL (70-99) 142 mg/dL (70-99) 137 mg/dL (70-99) Test 09/29/18 06:25 White Blood Count 7.3 x10^3/uL (4.0-11.0) Red Blood Count 2.96 x10^6/uL (3.50-5.40) Hemoglobin 8.8 g/dL (12.0-15.5) Hematocrit 26.8 % (36.0-47.0) Mean Corpuscular Volume 91 fL (79-100) Mean Corpuscular Hemoglobin 30 pg (25-35) Mean Corpuscular Hemoglobin Concent 33 g/dL (31-37) Red Cell Distribution Width 16.8 % (11.5-14.5) Platelet Count 103 x10^3/uL (140-400) Sodium Level 147 mmol/L (136-145) Potassium Level 3.9 mmol/L (3.5-5.1) Chloride Level 110 mmol/L (98-107) Carbon Dioxide Level 23 mmol/L (21-32) Anion Gap 14 (6-14) Blood Urea Nitrogen 29 mg/dL (7-20) Creatinine 1.1 mg/dL (0.6-1.0) Estimated GFR (Cockcroft-Gault) 50.0 Glucose Level 134 mg/dL (70-99) Calcium Level 8.1 mg/dL (8.5-10.1) Laboratory Tests Test 09/28/18 18:11 09/29/18 00:25 09/29/18 06:07 09/29/18 06:25 Glucose (Fingerstick) 138 mg/dL (70-99) 142 mg/dL (70-99) 137 mg/dL (70-99) White Blood Count 7.3 x10^3/uL (4.0-11.0) Red Blood Count 2.96 x10^6/uL (3.50-5.40) Hemoglobin 8.8 g/dL (12.0-15.5) Hematocrit 26.8 % (36.0-47.0) Mean Corpuscular Volume 91 fL (79-100) Mean Corpuscular Hemoglobin 30 pg (25-35) Mean Corpuscular Hemoglobin Concent 33 g/dL (31-37) Red Cell Distribution Width 16.8 % (11.5-14.5) Platelet Count 103 x10^3/uL (140-400) Sodium Level 147 mmol/L (136-145) Potassium Level 3.9 mmol/L (3.5-5.1) Chloride Level 110 mmol/L (98-107) Carbon Dioxide Level 23 mmol/L (21-32) Anion Gap 14 (6-14) Blood Urea Nitrogen 29 mg/dL (7-20) Creatinine 1.1 mg/dL (0.6-1.0) Estimated GFR (Cockcroft-Gault) 50.0 Glucose Level 134 mg/dL (70-99) Calcium Level 8.1 mg/dL (8.5-10.1) Medications Active Scripts Medications Dose Route/Sig Max Daily Dose Days Date Category [iron] 325 Mg PO 09/23/18 Reported Haloperidol 10 Mg Tablet 10 Mg PO QHS 09/23/18 Reported Ventolin Hfa Inhaler (Albuterol Sulfate) 18 Gm Hfa.aer.ad 2 Puff INH Q4HRS PRN 07/04/18 Reported Pristiq Er (Desvenlafaxine Succinate) 50 Mg Tab.er.24h 1 Tab PO DAILY 07/01/18 Reported Amitriptyline Hcl 25 Mg Tablet 1 Tab PO QHS 07/01/18 Reported Diazepam 5 Mg Tablet 5 Mg PO TID 07/01/18 Reported Gabapentin (Gabapentin) 300 Mg Capsule 300 Mg PO TID 07/01/18 Reported Impression . 1. Acute respiratory failure, multifactorial in etiology including shock, acute kidney injury 2. SEPTIC SHOCK 3. Abnormal CT of the chest with left lower lobe dense atelectasis/ PNEUMONIA 4. Acute kidney injury. 5. Electrolyte abnormality. 6. Gastrointestinal bleeding. 7. Hypotension. 8. Severe metabolic acidosis secondary to shock and acute kidney injury 09/26 Impression: Resolution of left lung base atelectasis. No new abnormality. Plan . EXTUBATED 09/27 OFF 02 WILL MONITOR RESP STATUS IS COMPENSATED FOLLOW NEPHRO ANTIBX DVT GI PROPHYLAXIS TPN FOR NUTRITION START ENTERAL FEEDING WHEN OK WITH GI TITO ZAPATA MD Sep 29, 2018 17:15
[2018-09-29 19:06] VITALS: BP 141/75
[2018-09-29] MEDS: LORazepam 0.5 MG TABLET PO PRN (20:05)
[2018-09-29] MEDS: FAMOTIDINE 20 MG/2 ML VIAL IVP SCH (20:06)
[2018-09-29] MEDS: HALOPERIDOL 5 MG TABLET. PO SCH (20:06)
[2018-09-29] MEDS: fentaNYL PF VIAL 100 MCG/2 ML VIAL IV PRN (21:48)
[2018-09-29] MEDS ORDERED: [UNRECOGNIZED DRUG - OTHER] IV SCH ×10 (22:00)
[2018-09-29] MEDS ORDERED: TOTAL PARENTERAL NUTRITION IV SCH ×10 (22:00)
[2018-09-29] MEDS ORDERED: DEXTROSE 70% IV SCH ×10 (22:00)
[2018-09-29] MEDS ORDERED: AMINO ACID IV SCH ×10 (22:00)
[2018-09-29 23:18] VITALS: BP 129/53
[2018-09-30] VITALS (7 sets, daily range): BP systolic 130–159; BP diastolic 36–79
[2018-09-30] MEDS: PIPERACILLIN/TAZOBACTAM 3.375 GM in IV NORMAL SALINE 50ML 50 ML IV SCH ×4 (05:40→23:06)
[2018-09-30 05:42] LABS: HEMOGLOBIN A1C 4.8 % (4.8-5.6)
[2018-09-30] MEDS: INSULIN LISPRO 300 UNITS/3 ML INSULN.PEN. SQ SCH ×4 (05:43→23:29)
[2018-09-30] MEDS: IPRATRPIUM/ALBUTEROL 0.5/2.5MG 3 ML NEBU. NEB SCH ×4 (07:06→20:32)
[2018-09-30] MEDS: LORazepam 0.5 MG TABLET PO PRN ×2 (07:14→20:54)
--- NOTE | 2018-09-30 10:01 | PDOC ---
SUBJECTIVE Subjective Pt has a 1:1. State that she has been doing pretty good; not really trying to get out of bed. When asked if she is in pain she nods her head yes but is unable to tell me where she hurts. OBJECTIVE Vital Signs Vital Signs Date Time Temp Pulse Resp B/P (MAP) Pulse Ox O2 Delivery O2 Flow Rate FiO2 09/30/18 07:08 Room Air 09/30/18 07:07 Room Air 09/30/18 06:55 99.3 109 18 130/70 (90) 93 Room Air 99.3 09/30/18 03:15 98.6 101 21 134/67 (89) 100 Room Air 98.6 09/29/18 23:18 97.7 108 24 129/53 (78) 100 Room Air 97.7 09/29/18 22:18 Room Air 09/29/18 21:48 Room Air 09/29/18 20:00 Room Air 09/29/18 19:06 98.6 109 22 141/75 (97) 100 Room Air 98.6 09/29/18 19:01 Room Air 09/29/18 14:56 100.2 111 18 145/77 (99) 95 Room Air 100.2 09/29/18 11:28 97 Room Air 09/29/18 11:00 99.4 114 20 146/75 (98) 95 Room Air 99.4 I & O Intake and Output 09/30/18 07:00 Intake Total 300 ml Output Total 1975 ml Balance -1675 ml Intake Oral 300 ml Output Urine Total 1875 ml Stool Total 100 ml PHYSICAL EXAM Physical Exam GEN: NAD, will nod her head yes and no but will not talk to me, moving extremities, not following command HEENT: MMM, EOMI, no scleral icterus/injection Cardiac: tachycardic, no M/R/G Lungs: CTAB, regular breathing rate and effort Abd: NBS, NTTP Ext: no erythema/edema LE bilaterally ASSESSMENT/PLAN Assessment/Plan Pt is a 63yo CF admitted with altered mental status 1. Altered mental status- mutlifactorial. Pt is more alert today. Currently has 1:1 2. Acute respiratory failure with possible pneumonia - pt extubated with no complications. Pulmonary following. Pt currently receiving Zosyn. 3. metabolic acidosis with acute renal failure - resolved 4. GI bleed - stable, Hgb decreasing very slowly but no evidence of ongoing bleed at this time. 5. schizophrenia with bipolar mood disorder - alert now but appears disoriented. Had been having some problems with her mental health prior to this hospitalization, had seen Psychiatry and started on new medications. Received Haldol 10mg last night, will try 5mg tonight. Ativan available if agitation becomes a problem for her. 6. nutrition - HD catheter removed by patient, PICC placed yesterday to continue TPN 7. debility - PT and OT 8. Thrombocytopenia- improving COMMENT Lab Laboratory Tests Test 09/29/18 12:34 09/29/18 23:54 09/30/18 05:43 Hemoglobin A1c 4.8 % (4.8-5.6) Glucose (Fingerstick) 122 mg/dL (70-99) 155 mg/dL (70-99) TRUONG THOMAS MD Sep 30, 2018 10:01
[2018-09-30 11:40] LABS: BASO # 0.1 x10^3/uL (0.0-0.2); BASO % 1 % (0-3); EOS # 0.3 x10^3/uL (0.0-0.7); EOS % 4 % (0-3); HEMATOCRIT 27.2 % (36.0-47.0); HEMOGLOBIN 8.9 g/dL (12.0-15.5); LYMPH # 0.9 x10^3/uL (1.0-4.8); LYMPH % 12 % (24-48); MEAN CORPUSCULAR HEMOGLOBIN 30 pg (25-35); MEAN CORPUSCULAR HGB CONC 33 g/dL (31-37); MEAN CORPUSCULAR VOLUME 92 fL (79-100); MONO % 13 % (0-9); NEUT # 5.3 x10^3uL (1.8-7.7); NEUT % 71 % (31-73); PLATELET COUNT 156 x10^3/uL (140-400); RED BLOOD COUNT 2.96 x10^6/uL (3.50-5.40); RED CELL DISTRIBUTION WIDTH 16.7 % (11.5-14.5); WHITE BLOOD COUNT 7.6 x10^3/uL (4.0-11.0)
[2018-09-30 11:52] LABS: CALCIUM 7.9 mg/dL (8.5-10.1); CREATININE 1.1 mg/dL (0.6-1.0); POTASSIUM 4.2 mmol/L (3.5-5.1)
[2018-09-30] MEDS: TPN PER PHARMACY MC PRN (12:04)
--- NOTE | 2018-09-30 12:04 | NUR ---
Pharmacy TPN Dosing Note S: ISABELL BUCIO is a 63 year old F Currently receiving Central Continuous TPN started 09/24/18 B:Pertinent PMH: Critical illness, suspected GIB Current diet: DYSPHAGIA LABS: Sodium: 145 Potassium: 4.2 Chloride: 112 Calcium: 7.9 Corrected Calcium: 9.02 Magnesium: 1.9 CO2: 26 SCr: 1.1 Glucose: 155-192 Albumin: 2.6 AST: 80 ALT: 39 TPN FORMULA: TPN TYPE: Central Continuous AMINO ACIDS: 60 g gm DEXTROSE: 225 g gm LIPIDS: 20 gm SODIUM CHLORIDE: 30 mEq SODIUM ACETATE: 10 mEq SODIUM PHOSPHATE: - mmol POTASSIUM CHLORIDE: - mEq POTASSIUM ACETATE: 35 mEq POTASSIUM PHOSPHATE: 17 mmol MAGNESIUM: 5 mEq CALCIUM: 10 mEq INSULIN: - units MULTIPLE VITAMIN: 10 ml TRACE ELEMENTS: MTE5 1ML ml(s) TPN PLAN: 3/3 SHIFT SOME SODIUM TO ACETATE DUE TO INCREASING CHLORIDE R: Change TPN Will monitor electrolytes, glucose, and tolerance to TPN. REGINALDO ORR [facility], 09/30/18 [id number]
[2018-09-30] MEDS: ACETAMINOPHEN 325 MG TABLET. PO PRN (14:10)
--- NOTE | 2018-09-30 14:36 | PDOC ---
PULMONARY PROGRESS NOTES Subjective PT OFF 02 EXTUBATED 09/27 CONFUSED NOT SOA Vitals Vital Signs Date Time Temp Pulse Resp B/P (MAP) Pulse Ox O2 Delivery O2 Flow Rate FiO2 09/30/18 14:03 101.2 117 16 134/61 (85) 98 Room Air 101.2 General: Alert Lungs: Clear, Other (decrease bs) Cardiovascular: S1, S2 Abdomen: Soft, Non-tender Neuro Exam: Alert Extremities: Other (1+edema) Labs Laboratory Tests Test 09/28/18 18:11 09/29/18 00:25 09/29/18 03:00 09/29/18 06:07 Glucose (Fingerstick) 138 mg/dL (70-99) 142 mg/dL (70-99) 137 mg/dL (70-99) Clostridium difficile Toxin B Gene Negative (Negative) Test 09/29/18 06:25 09/29/18 12:34 09/29/18 23:54 09/30/18 05:43 White Blood Count 7.3 x10^3/uL (4.0-11.0) Red Blood Count 2.96 x10^6/uL (3.50-5.40) Hemoglobin 8.8 g/dL (12.0-15.5) Hematocrit 26.8 % (36.0-47.0) Mean Corpuscular Volume 91 fL (79-100) Mean Corpuscular Hemoglobin 30 pg (25-35) Mean Corpuscular Hemoglobin Concent 33 g/dL (31-37) Red Cell Distribution Width 16.8 % (11.5-14.5) Platelet Count 103 x10^3/uL (140-400) Sodium Level 147 mmol/L (136-145) Potassium Level 3.9 mmol/L (3.5-5.1) Chloride Level 110 mmol/L (98-107) Carbon Dioxide Level 23 mmol/L (21-32) Anion Gap 14 (6-14) Blood Urea Nitrogen 29 mg/dL (7-20) Creatinine 1.1 mg/dL (0.6-1.0) Estimated GFR (Cockcroft-Gault) 50.0 Glucose Level 134 mg/dL (70-99) Calcium Level 8.1 mg/dL (8.5-10.1) Hemoglobin A1c 4.8 % (4.8-5.6) Glucose (Fingerstick) 122 mg/dL (70-99) 155 mg/dL (70-99) Test 09/30/18 10:55 09/30/18 11:04 White Blood Count 7.6 x10^3/uL (4.0-11.0) Red Blood Count 2.96 x10^6/uL (3.50-5.40) Hemoglobin 8.9 g/dL (12.0-15.5) Hematocrit 27.2 % (36.0-47.0) Mean Corpuscular Volume 92 fL (79-100) Mean Corpuscular Hemoglobin 30 pg (25-35) Mean Corpuscular Hemoglobin Concent 33 g/dL (31-37) Red Cell Distribution Width 16.7 % (11.5-14.5) Platelet Count 156 x10^3/uL (140-400) Neutrophils (%) (Auto) 71 % (31-73) Lymphocytes (%) (Auto) 12 % (24-48) Monocytes (%) (Auto) 13 % (0-9) Eosinophils (%) (Auto) 4 % (0-3) Basophils (%) (Auto) 1 % (0-3) Neutrophils # (Auto) 5.3 x10^3uL (1.8-7.7) Lymphocytes # (Auto) 0.9 x10^3/uL (1.0-4.8) Monocytes # (Auto) 1.0 x10^3/uL (0.0-1.1) Eosinophils # (Auto) 0.3 x10^3/uL (0.0-0.7) Basophils # (Auto) 0.1 x10^3/uL (0.0-0.2) Sodium Level 145 mmol/L (136-145) Potassium Level 4.2 mmol/L (3.5-5.1) Chloride Level 112 mmol/L (98-107) Carbon Dioxide Level 21 mmol/L (21-32) Anion Gap 12 (6-14) Blood Urea Nitrogen 19 mg/dL (7-20) Creatinine 1.1 mg/dL (0.6-1.0) Estimated GFR (Cockcroft-Gault) 50.0 Glucose Level 192 mg/dL (70-99) Calcium Level 7.9 mg/dL (8.5-10.1) Glucose (Fingerstick) 173 mg/dL (70-99) Laboratory Tests Test 09/29/18 23:54 09/30/18 05:43 09/30/18 10:55 09/30/18 11:04 Glucose (Fingerstick) 122 mg/dL (70-99) 155 mg/dL (70-99) 173 mg/dL (70-99) White Blood Count 7.6 x10^3/uL (4.0-11.0) Red Blood Count 2.96 x10^6/uL (3.50-5.40) Hemoglobin 8.9 g/dL (12.0-15.5) Hematocrit 27.2 % (36.0-47.0) Mean Corpuscular Volume 92 fL (79-100) Mean Corpuscular Hemoglobin 30 pg (25-35) Mean Corpuscular Hemoglobin Concent 33 g/dL (31-37) Red Cell Distribution Width 16.7 % (11.5-14.5) Platelet Count 156 x10^3/uL (140-400) Neutrophils (%) (Auto) 71 % (31-73) Lymphocytes (%) (Auto) 12 % (24-48) Monocytes (%) (Auto) 13 % (0-9) Eosinophils (%) (Auto) 4 % (0-3) Basophils (%) (Auto) 1 % (0-3) Neutrophils # (Auto) 5.3 x10^3uL (1.8-7.7) Lymphocytes # (Auto) 0.9 x10^3/uL (1.0-4.8) Monocytes # (Auto) 1.0 x10^3/uL (0.0-1.1) Eosinophils # (Auto) 0.3 x10^3/uL (0.0-0.7) Basophils # (Auto) 0.1 x10^3/uL (0.0-0.2) Sodium Level 145 mmol/L (136-145) Potassium Level 4.2 mmol/L (3.5-5.1) Chloride Level 112 mmol/L (98-107) Carbon Dioxide Level 21 mmol/L (21-32) Anion Gap 12 (6-14) Blood Urea Nitrogen 19 mg/dL (7-20) Creatinine 1.1 mg/dL (0.6-1.0) Estimated GFR (Cockcroft-Gault) 50.0 Glucose Level 192 mg/dL (70-99) Calcium Level 7.9 mg/dL (8.5-10.1) Medications Active Scripts Medications Dose Route/Sig Max Daily Dose Days Date Category [iron] 325 Mg PO 09/23/18 Reported Haloperidol 10 Mg Tablet 10 Mg PO QHS 09/23/18 Reported Ventolin Hfa Inhaler (Albuterol Sulfate) 18 Gm Hfa.aer.ad 2 Puff INH Q4HRS PRN 07/04/18 Reported Pristiq Er (Desvenlafaxine Succinate) 50 Mg Tab.er.24h 1 Tab PO DAILY 07/01/18 Reported Amitriptyline Hcl 25 Mg Tablet 1 Tab PO QHS 07/01/18 Reported Diazepam 5 Mg Tablet 5 Mg PO TID 07/01/18 Reported Gabapentin (Gabapentin) 300 Mg Capsule 300 Mg PO TID 07/01/18 Reported Impression . 1. Acute respiratory failure, multifactorial in etiology including shock, acute kidney injury 2. SEPTIC SHOCK 3. Abnormal CT of the chest with left lower lobe dense atelectasis/ PNEUMONIA 4. Acute kidney injury. 5. Electrolyte abnormality. 6. Gastrointestinal bleeding. 7. Hypotension. 8. Severe metabolic acidosis secondary to shock and acute kidney injury 09/26 Impression: Resolution of left lung base atelectasis. No new abnormality. Plan . D/C PLANNING PER PCP EXTUBATED 09/27 OFF 02 WILL MONITOR RESP STATUS IS COMPENSATED FOLLOW NEPHRO ANTIBX CHANGED TO ORAL DVT GI PROPHYLAXIS TPN FOR NUTRITION START ENTERAL FEEDING WHEN OK WITH GI TITO ZAPATA MD Sep 30, 2018 14:36
[2018-09-30] MEDS: HALOPERIDOL 5 MG TABLET. PO SCH (20:55)
[2018-09-30] MEDS: FAMOTIDINE 20 MG/2 ML VIAL IVP SCH (20:55)
[2018-09-30] MEDS ORDERED: [UNRECOGNIZED DRUG - OTHER] IV SCH ×11 (22:00)
[2018-09-30] MEDS ORDERED: DEXTROSE 70% IV SCH ×11 (22:00)
[2018-09-30] MEDS ORDERED: TOTAL PARENTERAL NUTRITION IV SCH ×11 (22:00)
[2018-09-30] MEDS ORDERED: AMINO ACID IV SCH ×11 (22:00)
[2018-10-01 03:00] VITALS: BP 161/88
[2018-10-01 04:17] LABS: BASO # 0.1 x10^3/uL (0.0-0.2); BASO % 1 % (0-3); EOS # 0.5 x10^3/uL (0.0-0.7); EOS % 5 % (0-3); HEMATOCRIT 27.1 % (36.0-47.0); HEMOGLOBIN 8.9 g/dL (12.0-15.5); LYMPH # 1.4 x10^3/uL (1.0-4.8); LYMPH % 14 % (24-48); MEAN CORPUSCULAR HEMOGLOBIN 30 pg (25-35); MEAN CORPUSCULAR HGB CONC 33 g/dL (31-37); MEAN CORPUSCULAR VOLUME 91 fL (79-100); MONO # 1.3 x10^3/uL (0.0-1.1); MONO % 13 % (0-9); NEUT # 6.8 x10^3uL (1.8-7.7); NEUT % 68 % (31-73); PLATELET COUNT 171 x10^3/uL (140-400); RED BLOOD COUNT 2.97 x10^6/uL (3.50-5.40); RED CELL DISTRIBUTION WIDTH 17.2 % (11.5-14.5); WHITE BLOOD COUNT 10.1 x10^3/uL (4.0-11.0)
[2018-10-01 05:05] LABS: CALCIUM 8.1 mg/dL (8.5-10.1); GFR 55.8; MAGNESIUM 1.4 mg/dL (1.8-2.4); PHOSPHORUS 3.6 mg/dL (2.6-4.7); POTASSIUM 4.5 mmol/L (3.5-5.1)
[2018-10-01] MEDS: PIPERACILLIN/TAZOBACTAM 3.375 GM in IV NORMAL SALINE 50ML 50 ML IV SCH (05:20)
[2018-10-01] MEDS: INSULIN LISPRO 300 UNITS/3 ML INSULN.PEN. SQ SCH ×3 (05:22→18:00)
[2018-10-01] MEDS: IPRATRPIUM/ALBUTEROL 0.5/2.5MG 3 ML NEBU. NEB SCH ×4 (06:58→19:54)
[2018-10-01 07:14] VITALS: BP 93/26
[2018-10-01 07:54] LABS: % BANDS 15 % (0-9); % BASOS 1 % (0-3); % EOS 6 % (0-5); % LYMPHS 14 % (24-48); % METAS 1 % (0-0); % MONOS 12 % (0-10); % SEGS 51 % (35-66); PLT ESTIMATE ADEQUATE (ADEQUATE)
[2018-10-01 08:14] LABS: ANISOCYTOSIS SLIGHT; OVALOCYTES FEW; POLYCHROMASIA SLIGHT; SPHEROCYTES OCC; TEAR DROP CELLS OCC
[2018-10-01 08:15] LABS: SCHISTOCYTES OCC
[2018-10-01 08:16] LABS: TOXIC GRANULATION SLIGHT
--- NOTE | 2018-10-01 08:27 | PDOC ---
PROGRESS NOTES Subjective Subjective Patient resting quietly in bed, answering questions but not reliable. Objective Objective Vital Signs Date Time Temp Pulse Resp B/P (MAP) Pulse Ox O2 Delivery O2 Flow Rate FiO2 10/01/18 07:56 Room Air 10/01/18 07:14 100.1 109 18 93/26 (48) 98 100.1 09/28/18 08:51 Intake and Output 10/01/18 06:59 Intake Total 1000 ml Output Total 1725 ml Balance -725 ml Intake Oral 1000 ml Output Urine Total 1725 ml Physical Exam Abdomen: Normal bowel sounds, Soft, No tenderness Heart: Regular rate Extremities: No edema General: Alert (appears disoriented.), No acute distress Lungs: Clear to auscultation Plan Plan of Care 1. Fever - patient has developed intermittent fever over past 2 days. Original cultures from admission negative. Recheck urine, consult ID for help with further management. 2. acute respiratory failure with pneumonia - much improved, hypoxia resolved. Remains on Zosyn. 3. metabolic acidosis with acute renal failure - resolved, renal function at baseline. 4. dysphagia - due, at least in part, to recent intubation. ST following, on Dysphagia I diet. Continue TPN for now, patient with poor appetite. 5. schizophrenia with metabolic encephalopathy - agitation improving. Continue Haldol and prn Ativan. Needs 1to1 for safety. 6. recent GI bleed - Hgb improving, platelets now WNL. 7. debility - continue therapies. Suspect she will need longterm when ready for discharge. Comment Review of Relevant I have reviewed the following items michelle (where applicable) has been applied. Labs Laboratory Tests Test 09/29/18 12:34 09/29/18 23:54 09/30/18 05:43 09/30/18 10:55 Hemoglobin A1c 4.8 % (4.8-5.6) Glucose (Fingerstick) 122 mg/dL (70-99) 155 mg/dL (70-99) White Blood Count 7.6 x10^3/uL (4.0-11.0) Red Blood Count 2.96 x10^6/uL (3.50-5.40) Hemoglobin 8.9 g/dL (12.0-15.5) Hematocrit 27.2 % (36.0-47.0) Mean Corpuscular Volume 92 fL (79-100) Mean Corpuscular Hemoglobin 30 pg (25-35) Mean Corpuscular Hemoglobin Concent 33 g/dL (31-37) Red Cell Distribution Width 16.7 % (11.5-14.5) Platelet Count 156 x10^3/uL (140-400) Neutrophils (%) (Auto) 71 % (31-73) Lymphocytes (%) (Auto) 12 % (24-48) Monocytes (%) (Auto) 13 % (0-9) Eosinophils (%) (Auto) 4 % (0-3) Basophils (%) (Auto) 1 % (0-3) Neutrophils # (Auto) 5.3 x10^3uL (1.8-7.7) Lymphocytes # (Auto) 0.9 x10^3/uL (1.0-4.8) Monocytes # (Auto) 1.0 x10^3/uL (0.0-1.1) Eosinophils # (Auto) 0.3 x10^3/uL (0.0-0.7) Basophils # (Auto) 0.1 x10^3/uL (0.0-0.2) Sodium Level 145 mmol/L (136-145) Potassium Level 4.2 mmol/L (3.5-5.1) Chloride Level 112 mmol/L (98-107) Carbon Dioxide Level 21 mmol/L (21-32) Anion Gap 12 (6-14) Blood Urea Nitrogen 19 mg/dL (7-20) Creatinine 1.1 mg/dL (0.6-1.0) Estimated GFR (Cockcroft-Gault) 50.0 Glucose Level 192 mg/dL (70-99) Calcium Level 7.9 mg/dL (8.5-10.1) Test 09/30/18 11:04 09/30/18 16:43 09/30/18 23:16 10/01/18 03:00 Glucose (Fingerstick) 173 mg/dL (70-99) 149 mg/dL (70-99) 133 mg/dL (70-99) White Blood Count 10.1 x10^3/uL (4.0-11.0) Red Blood Count 2.97 x10^6/uL (3.50-5.40) Hemoglobin 8.9 g/dL (12.0-15.5) Hematocrit 27.1 % (36.0-47.0) Mean Corpuscular Volume 91 fL (79-100) Mean Corpuscular Hemoglobin 30 pg (25-35) Mean Corpuscular Hemoglobin Concent 33 g/dL (31-37) Red Cell Distribution Width 17.2 % (11.5-14.5) Platelet Count 171 x10^3/uL (140-400) Neutrophils (%) (Auto) 68 % (31-73) Lymphocytes (%) (Auto) 14 % (24-48) Monocytes (%) (Auto) 13 % (0-9) Eosinophils (%) (Auto) 5 % (0-3) Basophils (%) (Auto) 1 % (0-3) Neutrophils # (Auto) 6.8 x10^3uL (1.8-7.7) Lymphocytes # (Auto) 1.4 x10^3/uL (1.0-4.8) Monocytes # (Auto) 1.3 x10^3/uL (0.0-1.1) Eosinophils # (Auto) 0.5 x10^3/uL (0.0-0.7) Basophils # (Auto) 0.1 x10^3/uL (0.0-0.2) Segmented Neutrophils % 51 % (35-66) Band Neutrophils % 15 % (0-9) Lymphocytes % 14 % (24-48) Monocytes % 12 % (0-10) Eosinophils % 6 % (0-5) Basophils % 1 % (0-3) Metamyelocytes % 1 % (0-0) Toxic Granulation Slight Platelet Estimate Adequate (ADEQUATE) Polychromasia Slight Anisocytosis Slight Spherocytes Occ Tear Drop Cells Occ Ovalocytes Few Schistocytes Occ Sodium Level 146 mmol/L (136-145) Potassium Level 4.5 mmol/L (3.5-5.1) Chloride Level 110 mmol/L (98-107) Carbon Dioxide Level 20 mmol/L (21-32) Anion Gap 16 (6-14) Blood Urea Nitrogen 16 mg/dL (7-20) Creatinine 1.0 mg/dL (0.6-1.0) Estimated GFR (Cockcroft-Gault) 55.8 Glucose Level 136 mg/dL (70-99) Calcium Level 8.1 mg/dL (8.5-10.1) Phosphorus Level 3.6 mg/dL (2.6-4.7) Magnesium Level 1.4 mg/dL (1.8-2.4) Test 10/01/18 05:22 Glucose (Fingerstick) 133 mg/dL (70-99) Laboratory Tests Test 09/30/18 10:55 09/30/18 11:04 09/30/18 16:43 09/30/18 23:16 White Blood Count 7.6 x10^3/uL (4.0-11.0) Red Blood Count 2.96 x10^6/uL (3.50-5.40) Hemoglobin 8.9 g/dL (12.0-15.5) Hematocrit 27.2 % (36.0-47.0) Mean Corpuscular Volume 92 fL (79-100) Mean Corpuscular Hemoglobin 30 pg (25-35) Mean Corpuscular Hemoglobin Concent 33 g/dL (31-37) Red Cell Distribution Width 16.7 % (11.5-14.5) Platelet Count 156 x10^3/uL (140-400) Neutrophils (%) (Auto) 71 % (31-73) Lymphocytes (%) (Auto) 12 % (24-48) Monocytes (%) (Auto) 13 % (0-9) Eosinophils (%) (Auto) 4 % (0-3) Basophils (%) (Auto) 1 % (0-3) Neutrophils # (Auto) 5.3 x10^3uL (1.8-7.7) Lymphocytes # (Auto) 0.9 x10^3/uL (1.0-4.8) Monocytes # (Auto) 1.0 x10^3/uL (0.0-1.1) Eosinophils # (Auto) 0.3 x10^3/uL (0.0-0.7) Basophils # (Auto) 0.1 x10^3/uL (0.0-0.2) Sodium Level 145 mmol/L (136-145) Potassium Level 4.2 mmol/L (3.5-5.1) Chloride Level 112 mmol/L (98-107) Carbon Dioxide Level 21 mmol/L (21-32) Anion Gap 12 (6-14) Blood Urea Nitrogen 19 mg/dL (7-20) Creatinine 1.1 mg/dL (0.6-1.0) Estimated GFR (Cockcroft-Gault) 50.0 Glucose Level 192 mg/dL (70-99) Calcium Level 7.9 mg/dL (8.5-10.1) Glucose (Fingerstick) 173 mg/dL (70-99) 149 mg/dL (70-99) 133 mg/dL (70-99) Test 10/01/18 03:00 10/01/18 05:22 White Blood Count 10.1 x10^3/uL (4.0-11.0) Red Blood Count 2.97 x10^6/uL (3.50-5.40) Hemoglobin 8.9 g/dL (12.0-15.5) Hematocrit 27.1 % (36.0-47.0) Mean Corpuscular Volume 91 fL (79-100) Mean Corpuscular Hemoglobin 30 pg (25-35) Mean Corpuscular Hemoglobin Concent 33 g/dL (31-37) Red Cell Distribution Width 17.2 % (11.5-14.5) Platelet Count 171 x10^3/uL (140-400) Neutrophils (%) (Auto) 68 % (31-73) Lymphocytes (%) (Auto) 14 % (24-48) Monocytes (%) (Auto) 13 % (0-9) Eosinophils (%) (Auto) 5 % (0-3) Basophils (%) (Auto) 1 % (0-3) Neutrophils # (Auto) 6.8 x10^3uL (1.8-7.7) Lymphocytes # (Auto) 1.4 x10^3/uL (1.0-4.8) Monocytes # (Auto) 1.3 x10^3/uL (0.0-1.1) Eosinophils # (Auto) 0.5 x10^3/uL (0.0-0.7) Basophils # (Auto) 0.1 x10^3/uL (0.0-0.2) Segmented Neutrophils % 51 % (35-66) Band Neutrophils % 15 % (0-9) Lymphocytes % 14 % (24-48) Monocytes % 12 % (0-10) Eosinophils % 6 % (0-5) Basophils % 1 % (0-3) Metamyelocytes % 1 % (0-0) Toxic Granulation Slight Platelet Estimate Adequate (ADEQUATE) Polychromasia Slight Anisocytosis Slight Spherocytes Occ Tear Drop Cells Occ Ovalocytes Few Schistocytes Occ Sodium Level 146 mmol/L (136-145) Potassium Level 4.5 mmol/L (3.5-5.1) Chloride Level 110 mmol/L (98-107) Carbon Dioxide Level 20 mmol/L (21-32) Anion Gap 16 (6-14) Blood Urea Nitrogen 16 mg/dL (7-20) Creatinine 1.0 mg/dL (0.6-1.0) Estimated GFR (Cockcroft-Gault) 55.8 Glucose Level 136 mg/dL (70-99) Calcium Level 8.1 mg/dL (8.5-10.1) Phosphorus Level 3.6 mg/dL (2.6-4.7) Magnesium Level 1.4 mg/dL (1.8-2.4) Glucose (Fingerstick) 133 mg/dL (70-99) Microbiology 09/22/18 Blood Culture - Final, Complete 09/25/18 - Final, Complete 09/25/18 - Final, Complete 09/25/18 - Final, Complete 09/25/18 Gram Stain Evaluation - Final, Complete 09/25/18 Sputum Culture - Final, Complete 09/25/18 Sputum Result 1 - Final, Complete 09/25/18 Sputum Result 2 - Final, Complete 09/22/18 Urine Culture - Final, Complete 09/22/18 Urine Culture Result 1 (MELODY) - Final, Complete Medications Current Medications Sodium Chloride 1,000 ml @ 1,000 mls/hr 1X ONCE IV Last administered on at 17:18; Start 09/22/18 at 17:15; Stop 09/22/18 at 18:14; Status DC Pantoprazole Sodium 80 mg/ Sodium Chloride 100 ml @ 10 mls/hr Q10H IV Last administered on 09/24/18at 05:46; Start 09/22/18 at 17:15; Stop 09/24/18 at 15:43 ; Status DC Pantoprazole Sodium (PROTONIX VIAL for IV PUSH) 80 mg 1X ONCE IVP Last administered on 09/22/18at 17:39; Start 09/22/18 at 17:15; Stop 09/22/18 at 17:17 ; Status DC Ceftriaxone Sodium (Rocephin) 1 gm 1X ONCE IVP ; Start 09/22/18 at 17:30; Stop 09/22/18 at 17:30; Status DC Sodium Chloride 1,000 ml @ 1,000 mls/hr 1X ONCE IV Last administered on at 17:27; Start 09/22/18 at 17:30; Stop 09/22/18 at 18:29; Status DC Vancomycin HCl (Vanco Per Pharmacy) 1 each PRN DAILY PRN MC SEE COMMENTS Last administered on 09/24/18at 21:37; Start 09/22/18 at 17:30; Stop 09/25/18 at 12:02 ; Status DC Piperacillin Sod/ Tazobactam Sod (Zosyn Per Pharmacy) 1 each PRN DAILY PRN MC SEE COMMENTS; Start 09/22/18 at 17:30 Piperacillin Sod/ Tazobactam Sod 3.375 gm/Sodium Chloride 50 ml @ 100 mls/hr 1X ONCE IV Last administered on 09/22/18at 18:04; Start 09/22/18 at 17:30; Stop 09/22/18 at 17:59; Status DC Vancomycin HCl 1.75 gm/Sodium Chloride 500 ml @ 250 mls/hr 1X ONCE IV Last administered on 09/22/18at 23:28; Start 09/22/18 at 17:30; Stop 09/22/18 at 19:29 ; Status DC Sodium Bicarbonate (Sodium Bicarb Adult 8.4% Syr) 50 meq 1X ONCE IV Last administered on 09/22/18at 18:03; Start 09/22/18 at 17:45; Stop 09/22/18 at 17:46 ; Status DC Norepinephrine Bitartrate 250 ml @ 0 mls/hr 1X ONCE IV Last administered on at 17:51; Start 09/22/18 at 17:45; Stop 09/22/18 at 17:46; Status DC Sodium Bicarbonate 150 meq/Sterile Water 1,150 ml @ 125 mls/hr 1X ONCE IV Last administered on 09/22/18at 18:30; Start 09/22/18 at 18:30; Stop 09/23/18 at 03:41; Status DC Piperacillin Sod/ Tazobactam Sod 3.375 gm/Sodium Chloride 50 ml @ 100 mls/hr Q6HRS IV Last administered on 10/01/18at 05:20; Start 09/23/18 at 00:00 Vasopressin 40 unit/Dextrose 102 ml @ 6 mls/hr CONT PRN IV SEE I/O RECORD Last administered on 09/24/18at 12:53; Start 09/22/18 at 18:45; Stop 09/27/18 at 15:12 ; Status DC Fentanyl Citrate (Fentanyl 2ml Vial) 50 mcg 1X ONCE IV ; Start 09/22/18 at 19: 00; Stop 09/22/18 at 19:01; Status DC Midazolam HCl 100 ml @ 5 mls/hr CONT PRN IV SEE I/O RECORD Last administered on 09/25/18at 19:41; Start 09/22/18 at 19:00; Stop 09/29/18 at 11:55; Status DC Lidocaine/Sodium Bicarbonate (Buffered Lidocaine 1%) 4 ml 1X ONCE INJ Last administered on 09/22/18at 19:15; Start 09/22/18 at 19:15; Stop 09/22/18 at 19:18 ; Status DC Heparin Sodium (Porcine) (Heparin Sodium) 2,500 unit 1X ONCE INT CAT Last administered on 09/22/18at 19:15; Start 09/22/18 at 19:15; Stop 09/22/18 at 19:18 ; Status DC Heparin Sodium (Porcine) (Heparin Sodium) 10,000 unit STK-MED ONCE .ROUTE ; Start 09/22/18 at 19:17; Stop 09/22/18 at 19:18; Status DC Sodium Bicarbonate 40 meq/Potassium Chloride 15 meq/ Magnesium Sulfate 5 meq/ Calcium Chloride 2.5 meq/ Bicarbonate Dialysis Soln w/ out KCl 5,050.5172 ml @ 1 ,000 mls/hr Q5H4M IV Last administered on 09/23/18at 05:02; Start 09/22/18 at 22 :00; Stop 09/23/18 at 08:43; Status DC Sodium Bicarbonate 40 meq/Potassium Chloride 15 meq/ Magnesium Sulfate 5 meq/ Calcium Chloride 2.5 meq/ Bicarbonate Dialysis Soln w/ out KCl 5,050.5172 ml @ 1 ,000 mls/hr Q5H4M IV Last administered on 09/23/18at 05:02; Start 09/22/18 at 22 :00; Stop 09/23/18 at 08:43; Status DC Sodium Bicarbonate 150 meq/Sterile Water 1,150 ml @ 300 mls/hr Q3H50M IV Last administered on 09/24/18at 05:45; Start 09/22/18 at 22:00; Stop 09/24/18 at 15:44 ; Status DC Etomidate (Amidate) 20 mg STK-MED ONCE IV ; Start 09/22/18 at 20:36; Stop at 20:37; Status DC Rocuronium [place] (Zemuron) 50 mg STK-MED ONCE .ROUTE ; Start 09/22/18 at 20:36 ; Stop 09/22/18 at 20:37; Status DC Norepinephrine Bitartrate 250 ml @ 1.875 mls/ hr CONT PRN IV SEE I/O RECORD Last administered on 09/24/18at 12:54; Start 09/22/18 at 23:30; Stop 09/27/18 at 15:53; Status DC Fentanyl Citrate (Fentanyl 2ml Vial) 50 mcg PRN Q1HR PRN IV PAIN Last administered on 09/29/18at 21:48; Start 09/22/18 at 23:30 Epinephrine HCl 4 mg/Sodium Chloride 254 ml @ 26.44 mls/ hr CONT PRN IV SEE I/ O RECORD; Start 09/23/18 at 02:15; Stop 09/27/18 at 15:53; Status DC Albuterol/ Ipratropium (Duoneb) 3 ml RTQID NEB Last administered on 10/01/18at 06 :58; Start 09/23/18 at 08:00 Sodium Bicarbonate 40 meq/Potassium Chloride 15 meq/ Magnesium Sulfate 5 meq/ Calcium Chloride 17.5 meq/ Bicarbonate Dialysis Soln w/ out KCl 5,061.2315 ml @ 1,000 mls/hr Q5H4M IV Last administered on 09/23/18at 10:13; Start 09/23/18 at 10:00; Stop 09/23/18 at 10:32; Status DC Sodium Bicarbonate 40 meq/Potassium Chloride 15 meq/ Magnesium Sulfate 5 meq/ Calcium Chloride 17.5 meq/ Bicarbonate Dialysis Soln w/ out KCl 5,061.2315 ml @ 1,000 mls/hr Q5H4M IV Last administered on 09/23/18at 10:12; Start 09/23/18 at 10:00; Stop 09/23/18 at 10:33; Status DC Sodium Bicarbonate 40 meq/Potassium Chloride 15 meq/ Magnesium Sulfate 5 meq/ Calcium Chloride 5 meq/ Bicarbonate Dialysis Soln w/ out KCl 5,052.3029 ml @ 1, 000 mls/hr Q5H4M IV Last administered on 09/23/18at 15:40; Start 09/23/18 at 11: 00; Stop 09/23/18 at 19:28; Status DC Sodium Bicarbonate 40 meq/Potassium Chloride 15 meq/ Magnesium Sulfate 5 meq/ Calcium Chloride 5 meq/ Bicarbonate Dialysis Soln w/ out KCl 5,052.3029 ml @ 1, 000 mls/hr Q5H4M IV Last administered on 09/23/18at 15:39; Start 09/23/18 at 10: 45; Stop 09/23/18 at 19:28; Status DC Vancomycin HCl 1 gm/Sodium Chloride 250 ml @ 250 mls/hr Q24H IV Last administered on 09/24/18at 21:38; Start 09/23/18 at 21:00; Stop 09/25/18 at 12:02 ; Status DC Vancomycin HCl (Vancomycin Trough Level) 1 each 1X ONCE MC Last administered on 09/24/18at 20:30; Start 09/24/18 at 20:30; Stop 09/24/18 at 20:31; Status DC Potassium Chloride 15 meq/ Magnesium Sulfate 5 meq/Calcium Chloride 5 meq/ Bicarbonate Dialysis Soln w/ out KCl 5,012.3029 ml @ 1,000 mls/hr Q5H1M IV Last administered on 09/23/18at 23:50; Start 09/23/18 at 20:30; Stop 09/24/18 at 04:06; Status DC Potassium Chloride 35 meq/ Magnesium Sulfate 5 meq/Calcium Chloride 5 meq/ Bicarbonate Dialysis Soln w/ out KCl 5,022.3029 ml @ 1,000 mls/hr Q5H2M IV Last administered on 09/23/18at 23:49; Start 09/23/18 at 20:30; Stop 09/24/18 at 04:06; Status DC Fentanyl Citrate 30 ml @ 0 mls/hr CONT PRN IV SEE PROTOCOL Last administered on 09/27/18at 07:03; Start 09/23/18 at 22:30; Stop 09/27/18 at 15:53; Status DC Chlorhexidine Gluconate (Peridex) 15 ml BID MM Last administered on 09/24/18at 21:41; Start 09/24/18 at 09:00; Stop 09/25/18 at 09:30; Status DC Potassium Chloride 15 meq/ Magnesium Sulfate 2.5 meq/Calcium Chloride 5 meq/ Bicarbonate Dialysis Soln w/ out KCl 5,011.6871 ml @ 1,000 mls/hr Q5H1M IV Last administered on 09/24/18at 04:34; Start 09/24/18 at 04:30; Stop 09/24/18 at 17:00; Status DC Potassium Chloride 35 meq/ Magnesium Sulfate 2.5 meq/Calcium Chloride 5 meq/ Bicarbonate Dialysis Soln w/ out KCl 5,021.6871 ml @ 1,000 mls/hr Q5H2M IV Last administered on 09/24/18at 04:34; Start 09/24/18 at 04:30; Stop 09/24/18 at 17:00; Status DC Sodium Chloride 90 meq/Potassium Chloride 50 meq/ Potassium Phosphate 13.6 mmol/ Magnesium Sulfate 10 meq/ Calcium Gluconate 10 meq/ Multivitamins 10 ml/Chromium / Copper/Manganese/ Seleni/Zn 1 ml/ Total Parenteral Nutrition/Amino Acids/ Dextrose/ Fat Emulsion Intravenous 87.0013 ml @ 3.625 mls/hr TPN CONT IV ; Start 09/24/18 at 22:00; Stop 09/25/18 at 21:59; Status UNV Info (Tpn Per Pharmacy) 1 each PRN DAILY PRN MC SEE COMMENTS Last administered on 09/30/18at 12:04; Start 09/24/18 at 08:15 Sodium Acetate 45 meq/Potassium Acetate 25 meq/ Potassium Phosphate 13.6 mmol/ Magnesium Sulfate 10 meq/ Calcium Gluconate 10 meq/ Multivitamins 10 ml/Chromium / Copper/Manganese/ Seleni/Zn 1 ml/ Total Parenteral Nutrition/Amino Acids/ Dextrose/ Fat Emulsion Intravenous 1,422 ml @ 59.25 mls/ hr TPN CONT IV Last administered on 09/24/18at 22:50; Start 09/24/18 at 22:00; Stop 09/25/18 at 21:59 ; Status DC Potassium Chloride/Water 50 ml @ 50 mls/hr Q1H IV Last administered on at 10:39; Start 09/25/18 at 09:00; Stop 09/25/18 at 10:59; Status DC Insulin Human Lispro (HumaLOG) 0-5 UNITS Q6HRS SQ Last administered on at 12:50; Start 09/25/18 at 12:00 Dextrose (Dextrose 50%-Water Syringe) 12.5 gm PRN Q15MIN PRN IV SEE COMMENTS; Start 09/25/18 at 09:30 Famotidine (Pepcid Vial) 20 mg QHS IVP Last administered on 09/30/18at 20:55; Start 09/25/18 at 21:00 Linezolid/Dextrose 300 ml @ 300 mls/hr Q12HR IV Last administered on 09/28/18at 08:52; Start 09/25/18 at 13:00; Stop 09/28/18 at 17:06; Status DC Pantoprazole Sodium (PROTONIX VIAL for IV PUSH) 40 mg DAILYAC IVP ; Start at 13:00; Stop 09/25/18 at 13:00; Status DC Sodium Chloride 45 meq/Potassium Acetate 35 meq/ Potassium Phosphate 17 mmol/ Magnesium Sulfate 5 meq/Calcium Gluconate 10 meq/ Multivitamins 10 ml/Chromium/ Copper/Manganese/ Seleni/Zn 1 ml/ Total Parenteral Nutrition/Amino Acids/ Dextrose/ Fat Emulsion Intravenous 1,512 ml @ 63 mls/hr TPN CONT IV Last administered on 09/25/18at 22:10; Start 09/25/18 at 22:00; Stop 09/26/18 at 13:53 ; Status DC Sodium Phosphate 10 mmol/Dextrose 253.3333 ml @ 63.333 m... 1X ONCE IV Last administered on 09/25/18at 16:16; Start 09/25/18 at 16:00; Stop 09/25/18 at 19:59 ; Status DC Amitriptyline HCl (Elavil) 25 mg QHS PO ; Start 09/26/18 at 21:00; Status UNV Non-Formulary Medication (Desvenlafaxine Succinate (Pristiq Er)) 1 tab DAILY PO ; Start 09/27/18 at 09:00; Status UNV Haloperidol (Haldol) 10 mg HS PO Last administered on 09/26/18at 21:20; Start at 21:00; Stop 09/27/18 at 21:07; Status DC Sodium Chloride 45 meq/Potassium Acetate 35 meq/ Potassium Phosphate 17 mmol/ Magnesium Sulfate 5 meq/Calcium Gluconate 10 meq/ Multivitamins 10 ml/Chromium/ Copper/Manganese/ Seleni/Zn 1 ml/ Total Parenteral Nutrition/Amino Acids/ Dextrose/ Fat Emulsion Intravenous 1,512 ml @ 63 mls/hr TPN CONT IV ; Start at 22:00; Stop 09/27/18 at 21:59; Status Cancel Sodium Chloride 45 meq/Potassium Acetate 35 meq/ Potassium Phosphate 17 mmol/ Magnesium Sulfate 5 meq/Calcium Gluconate 10 meq/ Multivitamins 10 ml/Chromium/ Copper/Manganese/ Seleni/Zn 1 ml/ Total Parenteral Nutrition/Amino Acids/ Dextrose/ Fat Emulsion Intravenous 1,512 ml @ 63 mls/hr TPN CONT IV Last administered on 09/26/18at 21:31; Start 09/26/18 at 22:00; Stop 09/27/18 at 21:59 ; Status DC Lorazepam (Ativan) 0.5 mg PRN Q6HRS PRN PO ANXIETY / AGITATION Last administered on 09/30/18at 20:54; Start 09/27/18 at 08:15 Sodium Chloride 45 meq/Potassium Acetate 35 meq/ Potassium Phosphate 17 mmol/ Magnesium Sulfate 5 meq/Calcium Gluconate 10 meq/ Multivitamins 10 ml/Chromium/ Copper/Manganese/ Seleni/Zn 1 ml/ Total Parenteral Nutrition/Amino Acids/ Dextrose/ Fat Emulsion Intravenous 1,512 ml @ 63 mls/hr TPN CONT IV Last administered on 09/27/18at 21:34; Start 09/27/18 at 22:00; Stop 09/28/18 at 21:59 ; Status DC Haloperidol Lactate (Haldol Inj) 10 mg HS IVP Last administered on 09/27/18at 21 :33; Start 09/27/18 at 22:00; Stop 09/28/18 at 07:58; Status DC Lorazepam (Ativan) 0.5 mg PRN Q6HRS PRN IV ANXIETY / AGITATION Last administered on 09/29/18at 00:20; Start 09/27/18 at 21:15 Haloperidol (Haldol) 10 mg PRN QHS PRN PO AGITATION IF TAKING PO; Start at 21:15; Stop 09/28/18 at 08:02; Status DC Haloperidol (Haldol) 5 mg QHS PO Last administered on 09/30/18at 20:55; Start 09/28/18 at 21:00 Sodium Chloride 45 meq/Potassium Acetate 35 meq/ Potassium Phosphate 17 mmol/ Magnesium Sulfate 5 meq/Calcium Gluconate 10 meq/ Multivitamins 10 ml/Chromium/ Copper/Manganese/ Seleni/Zn 1 ml/ Total Parenteral Nutrition/Amino Acids/ Dextrose/ Fat Emulsion Intravenous 1,512 ml @ 63 mls/hr TPN CONT IV Last administered on 09/28/18at 23:00; Start 09/28/18 at 22:00; Stop 09/29/18 at 21:59; Status DC Ondansetron HCl (Zofran) 4 mg PRN Q6HRS PRN IV NAUSEA/VOMITING; Start 09/29/18 at 11:30 Sodium Chloride 40 meq/Potassium Acetate 35 meq/ Potassium Phosphate 17 mmol/ Magnesium Sulfate 5 meq/Calcium Gluconate 10 meq/ Multivitamins 10 ml/Chromium/ Copper/Manganese/ Seleni/Zn 1 ml/ Total Parenteral Nutrition/Amino Acids/ Dextrose/ Fat Emulsion Intravenous 1,512 ml @ 63 mls/hr TPN CONT IV Last administered on 09/29/18 21:18; Start 09/29/18 at 22:00; Stop 09/30/18 at 21:59; Status DC Haloperidol Lactate (Haldol Inj) 5 mg 1X ONCE IM Last administered on 15:15; Start 09/29/18 at 15:15; Stop 09/29/18 at 15:16; Status DC Sodium Chloride 30 meq/Sodium Acetate 10 meq/ Potassium Acetate 35 meq/ Potassium Phosphate 17 mmol/ Magnesium Sulfate 5 meq/Calcium Gluconate 10 meq/ Multivitamins 10 ml/Chromium/ Copper/Manganese/ Seleni/Zn 1 ml/ Total Parenteral Nutrition/Amino Acids/Dextrose/ Fat Emulsion Intravenous 1,512 ml @ 63 mls/hr TPN CONT IV Last administered on 09/30/18at 20:56; Start 09/30/18 at 22 :00; Stop 10/01/18 at 21:59 Acetaminophen (Tylenol) 650 mg PRN Q6HRS PRN PO FEVER Last administered on at 14:10; Start 09/30/18 at 14:00 Active Scripts Active Reported [iron] 325 Mg PO Haloperidol 10 Mg Tablet 10 Mg PO QHS Ventolin Hfa Inhaler (Albuterol Sulfate) 18 Gm Hfa.aer.ad 2 Puff INH Q4HRS PRN Pristiq Er (Desvenlafaxine Succinate) 50 Mg Tab.er.24h 1 Tab PO DAILY Amitriptyline Hcl 25 Mg Tablet 1 Tab PO QHS Diazepam 5 Mg Tablet 5 Mg PO TID Gabapentin (Gabapentin) 300 Mg Capsule 300 Mg PO TID Vitals/I & O Vital Sign - Last 24 Hours 09/30/18 09/30/18 09/30/18 09/30/18 10:24 11:18 14:03 14:37 Temp 99.9 101.2 100.7 99.9 101.2 100.7 Pulse 113 117 Resp 18 16 B/P (MAP) 159/79 (105) 134/61 (85) Pulse Ox 97 98 O2 Delivery Room Air Room Air Room Air 09/30/18 09/30/18 09/30/18 09/30/18 15:06 15:22 17:20 19:00 Temp 99.9 98.0 99.9 99.9 98.0 99.9 Pulse 116 Resp 20 B/P (MAP) 149/73 (98) Pulse Ox 96 O2 Delivery Room Air Room Air 09/30/18 09/30/18 09/30/18 10/01/18 20:00 20:32 23:00 03:00 Temp 98.8 99.8 98.8 99.8 Pulse 113 112 Resp 24 24 B/P (MAP) 141/36 (71) 161/88 (112) Pulse Ox 97 97 96 O2 Delivery Room Air Room Air Room Air Room Air 10/01/18 10/01/18 10/01/18 06:59 07:14 07:56 Temp 100.1 100.1 Pulse 109 Resp 18 B/P (MAP) 93/26 (48) Pulse Ox 96 98 O2 Delivery Room Air Room Air Room Air Intake and Output 09/30/18 09/30/18 10/01/18 14:59 22:59 06:59 Intake Total 210 ml 690 ml 100 ml Output Total 725 ml 1000 ml Balance 210 ml -35 ml -900 ml MILY COOK MD Oct 01, 2018 08:27
--- NOTE | 2018-10-01 09:28 | NUR ---
[facility]ILA following pt. Spoke with Luci at [facility] and pt was accepted last week. [facility] Luci to check if pt still meets criteria for LTAC admission. Will continue to follow. Addendum: 10/02/18 at 0835 by RAKAN SHARP Pt still meets criteria for LTAC admission at [facility]. Will continue to follow.
--- NOTE | 2018-10-01 09:59 | PDOC ---
PULMONARY PROGRESS NOTES Subjective PT OFF 02 EXTUBATED 09/27 LESS CONFUSED TODAY Vitals Vital Signs Date Time Temp Pulse Resp B/P (MAP) Pulse Ox O2 Delivery O2 Flow Rate FiO2 10/01/18 07:56 Room Air 10/01/18 07:14 100.1 109 18 93/26 (48) 98 100.1 General: Alert Lungs: Clear, Other (decrease bs) Cardiovascular: S1, S2 Abdomen: Soft, Non-tender Neuro Exam: Alert Extremities: Other (1+edema) Labs Laboratory Tests Test 09/29/18 12:34 09/29/18 23:54 09/30/18 05:43 09/30/18 10:55 Hemoglobin A1c 4.8 % (4.8-5.6) Glucose (Fingerstick) 122 mg/dL (70-99) 155 mg/dL (70-99) White Blood Count 7.6 x10^3/uL (4.0-11.0) Red Blood Count 2.96 x10^6/uL (3.50-5.40) Hemoglobin 8.9 g/dL (12.0-15.5) Hematocrit 27.2 % (36.0-47.0) Mean Corpuscular Volume 92 fL (79-100) Mean Corpuscular Hemoglobin 30 pg (25-35) Mean Corpuscular Hemoglobin Concent 33 g/dL (31-37) Red Cell Distribution Width 16.7 % (11.5-14.5) Platelet Count 156 x10^3/uL (140-400) Neutrophils (%) (Auto) 71 % (31-73) Lymphocytes (%) (Auto) 12 % (24-48) Monocytes (%) (Auto) 13 % (0-9) Eosinophils (%) (Auto) 4 % (0-3) Basophils (%) (Auto) 1 % (0-3) Neutrophils # (Auto) 5.3 x10^3uL (1.8-7.7) Lymphocytes # (Auto) 0.9 x10^3/uL (1.0-4.8) Monocytes # (Auto) 1.0 x10^3/uL (0.0-1.1) Eosinophils # (Auto) 0.3 x10^3/uL (0.0-0.7) Basophils # (Auto) 0.1 x10^3/uL (0.0-0.2) Sodium Level 145 mmol/L (136-145) Potassium Level 4.2 mmol/L (3.5-5.1) Chloride Level 112 mmol/L (98-107) Carbon Dioxide Level 21 mmol/L (21-32) Anion Gap 12 (6-14) Blood Urea Nitrogen 19 mg/dL (7-20) Creatinine 1.1 mg/dL (0.6-1.0) Estimated GFR (Cockcroft-Gault) 50.0 Glucose Level 192 mg/dL (70-99) Calcium Level 7.9 mg/dL (8.5-10.1) Test 09/30/18 11:04 09/30/18 16:43 09/30/18 23:16 10/01/18 03:00 Glucose (Fingerstick) 173 mg/dL (70-99) 149 mg/dL (70-99) 133 mg/dL (70-99) White Blood Count 10.1 x10^3/uL (4.0-11.0) Red Blood Count 2.97 x10^6/uL (3.50-5.40) Hemoglobin 8.9 g/dL (12.0-15.5) Hematocrit 27.1 % (36.0-47.0) Mean Corpuscular Volume 91 fL (79-100) Mean Corpuscular Hemoglobin 30 pg (25-35) Mean Corpuscular Hemoglobin Concent 33 g/dL (31-37) Red Cell Distribution Width 17.2 % (11.5-14.5) Platelet Count 171 x10^3/uL (140-400) Neutrophils (%) (Auto) 68 % (31-73) Lymphocytes (%) (Auto) 14 % (24-48) Monocytes (%) (Auto) 13 % (0-9) Eosinophils (%) (Auto) 5 % (0-3) Basophils (%) (Auto) 1 % (0-3) Neutrophils # (Auto) 6.8 x10^3uL (1.8-7.7) Lymphocytes # (Auto) 1.4 x10^3/uL (1.0-4.8) Monocytes # (Auto) 1.3 x10^3/uL (0.0-1.1) Eosinophils # (Auto) 0.5 x10^3/uL (0.0-0.7) Basophils # (Auto) 0.1 x10^3/uL (0.0-0.2) Segmented Neutrophils % 51 % (35-66) Band Neutrophils % 15 % (0-9) Lymphocytes % 14 % (24-48) Monocytes % 12 % (0-10) Eosinophils % 6 % (0-5) Basophils % 1 % (0-3) Metamyelocytes % 1 % (0-0) Toxic Granulation Slight Platelet Estimate Adequate (ADEQUATE) Polychromasia Slight Anisocytosis Slight Spherocytes Occ Tear Drop Cells Occ Ovalocytes Few Schistocytes Occ Sodium Level 146 mmol/L (136-145) Potassium Level 4.5 mmol/L (3.5-5.1) Chloride Level 110 mmol/L (98-107) Carbon Dioxide Level 20 mmol/L (21-32) Anion Gap 16 (6-14) Blood Urea Nitrogen 16 mg/dL (7-20) Creatinine 1.0 mg/dL (0.6-1.0) Estimated GFR (Cockcroft-Gault) 55.8 Glucose Level 136 mg/dL (70-99) Calcium Level 8.1 mg/dL (8.5-10.1) Phosphorus Level 3.6 mg/dL (2.6-4.7) Magnesium Level 1.4 mg/dL (1.8-2.4) Test 10/01/18 05:22 Glucose (Fingerstick) 133 mg/dL (70-99) Laboratory Tests Test 09/30/18 10:55 09/30/18 11:04 09/30/18 16:43 09/30/18 23:16 White Blood Count 7.6 x10^3/uL (4.0-11.0) Red Blood Count 2.96 x10^6/uL (3.50-5.40) Hemoglobin 8.9 g/dL (12.0-15.5) Hematocrit 27.2 % (36.0-47.0) Mean Corpuscular Volume 92 fL (79-100) Mean Corpuscular Hemoglobin 30 pg (25-35) Mean Corpuscular Hemoglobin Concent 33 g/dL (31-37) Red Cell Distribution Width 16.7 % (11.5-14.5) Platelet Count 156 x10^3/uL (140-400) Neutrophils (%) (Auto) 71 % (31-73) Lymphocytes (%) (Auto) 12 % (24-48) Monocytes (%) (Auto) 13 % (0-9) Eosinophils (%) (Auto) 4 % (0-3) Basophils (%) (Auto) 1 % (0-3) Neutrophils # (Auto) 5.3 x10^3uL (1.8-7.7) Lymphocytes # (Auto) 0.9 x10^3/uL (1.0-4.8) Monocytes # (Auto) 1.0 x10^3/uL (0.0-1.1) Eosinophils # (Auto) 0.3 x10^3/uL (0.0-0.7) Basophils # (Auto) 0.1 x10^3/uL (0.0-0.2) Sodium Level 145 mmol/L (136-145) Potassium Level 4.2 mmol/L (3.5-5.1) Chloride Level 112 mmol/L (98-107) Carbon Dioxide Level 21 mmol/L (21-32) Anion Gap 12 (6-14) Blood Urea Nitrogen 19 mg/dL (7-20) Creatinine 1.1 mg/dL (0.6-1.0) Estimated GFR (Cockcroft-Gault) 50.0 Glucose Level 192 mg/dL (70-99) Calcium Level 7.9 mg/dL (8.5-10.1) Glucose (Fingerstick) 173 mg/dL (70-99) 149 mg/dL (70-99) 133 mg/dL (70-99) Test 10/01/18 03:00 10/01/18 05:22 White Blood Count 10.1 x10^3/uL (4.0-11.0) Red Blood Count 2.97 x10^6/uL (3.50-5.40) Hemoglobin 8.9 g/dL (12.0-15.5) Hematocrit 27.1 % (36.0-47.0) Mean Corpuscular Volume 91 fL (79-100) Mean Corpuscular Hemoglobin 30 pg (25-35) Mean Corpuscular Hemoglobin Concent 33 g/dL (31-37) Red Cell Distribution Width 17.2 % (11.5-14.5) Platelet Count 171 x10^3/uL (140-400) Neutrophils (%) (Auto) 68 % (31-73) Lymphocytes (%) (Auto) 14 % (24-48) Monocytes (%) (Auto) 13 % (0-9) Eosinophils (%) (Auto) 5 % (0-3) Basophils (%) (Auto) 1 % (0-3) Neutrophils # (Auto) 6.8 x10^3uL (1.8-7.7) Lymphocytes # (Auto) 1.4 x10^3/uL (1.0-4.8) Monocytes # (Auto) 1.3 x10^3/uL (0.0-1.1) Eosinophils # (Auto) 0.5 x10^3/uL (0.0-0.7) Basophils # (Auto) 0.1 x10^3/uL (0.0-0.2) Segmented Neutrophils % 51 % (35-66) Band Neutrophils % 15 % (0-9) Lymphocytes % 14 % (24-48) Monocytes % 12 % (0-10) Eosinophils % 6 % (0-5) Basophils % 1 % (0-3) Metamyelocytes % 1 % (0-0) Toxic Granulation Slight Platelet Estimate Adequate (ADEQUATE) Polychromasia Slight Anisocytosis Slight Spherocytes Occ Tear Drop Cells Occ Ovalocytes Few Schistocytes Occ Sodium Level 146 mmol/L (136-145) Potassium Level 4.5 mmol/L (3.5-5.1) Chloride Level 110 mmol/L (98-107) Carbon Dioxide Level 20 mmol/L (21-32) Anion Gap 16 (6-14) Blood Urea Nitrogen 16 mg/dL (7-20) Creatinine 1.0 mg/dL (0.6-1.0) Estimated GFR (Cockcroft-Gault) 55.8 Glucose Level 136 mg/dL (70-99) Calcium Level 8.1 mg/dL (8.5-10.1) Phosphorus Level 3.6 mg/dL (2.6-4.7) Magnesium Level 1.4 mg/dL (1.8-2.4) Glucose (Fingerstick) 133 mg/dL (70-99) Medications Active Scripts Medications Dose Route/Sig Max Daily Dose Days Date Category [iron] 325 Mg PO 09/23/18 Reported Haloperidol 10 Mg Tablet 10 Mg PO QHS 09/23/18 Reported Ventolin Hfa Inhaler (Albuterol Sulfate) 18 Gm Hfa.aer.ad 2 Puff INH Q4HRS PRN 07/04/18 Reported Pristiq Er (Desvenlafaxine Succinate) 50 Mg Tab.er.24h 1 Tab PO DAILY 07/01/18 Reported Amitriptyline Hcl 25 Mg Tablet 1 Tab PO QHS 07/01/18 Reported Diazepam 5 Mg Tablet 5 Mg PO TID 07/01/18 Reported Gabapentin (Gabapentin) 300 Mg Capsule 300 Mg PO TID 07/01/18 Reported Impression . 1. Acute respiratory failure, multifactorial in etiology including shock, acute kidney injury 2. SEPTIC SHOCK 3. Abnormal CT of the chest with left lower lobe dense atelectasis/ PNEUMONIA 4. Acute kidney injury. 5. Electrolyte abnormality. 6. Gastrointestinal bleeding. 7. Hypotension. 8. Severe metabolic acidosis secondary to shock and acute kidney injury 9. FEVER PER ID Plan . ANTIBX PER ID CONTINUE THE SAME GNR B.C PENIDING FINAL EXTUBATED 09/27 OFF 02 WILL MONITOR RESP STATUS IS COMPENSATED FOLLOW NEPHRO DVT GI PROPHYLAXIS TPN FOR NUTRITION START ENTERAL FEEDING WHEN OK WITH GI TITO ZAPATA MD Oct 01, 2018 09:59
[2018-10-01 10:17] LABS: BILIRUBIN,URINE NEGATIVE (NEG); CLARITY,URINE CLEAR; COLOR,URINE YELLOW; NITRITE,URINE NEGATIVE (NEG); PH,URINE 8.5; PROTEIN,URINE NEGATIVE (NEG-TRACE); UROBILINOGEN,URINE 0.2 mg/dL (0.2 mg/dL)
[2018-10-01 10:26] LABS: SQUAMOUS EPITHELIAL CELL,UR FEW /LPF
[2018-10-01 10:28] LABS: BACTERIA,URINE FEW /HPF (0-FEW)
[2018-10-01 11:00] VITALS: BP 146/104
--- NOTE | 2018-10-01 11:00 | PDOC ---
Infectious Disease Note Vital Signs: Vital Signs Vital Signs Date Time Temp Pulse Resp B/P (MAP) Pulse Ox O2 Delivery O2 Flow Rate FiO2 10/01/18 10:37 96 Room Air 10/01/18 07:14 100.1 109 18 93/26 (48) 100.1 Medications: Inpatient Meds: Current Medications Medications (Trade) Dose Ordered Sig/Ashli Start Time Stop Time Status Last Admin Dose Admin Acetaminophen (Tylenol) 650 mg PRN Q6HRS PRN 09/30/18 14:00 09/30/18 14:10 650 MG Albuterol/ Ipratropium (Duoneb) 3 ml RTQID 09/23/18 08:00 10/01/18 10:36 3 ML Amitriptyline HCl (Elavil) 25 mg QHS 09/26/18 21:00 UNV Ceftriaxone Sodium (Rocephin) 1 gm 1X ONCE 09/22/18 17:30 09/22/18 17:30 DC Chlorhexidine Gluconate (Peridex) 15 ml BID 09/24/18 09:00 09/25/18 09:30 DC 09/24/18 21:41 15 ML Dextrose (Dextrose 50%-Water Syringe) 12.5 gm PRN Q15MIN PRN 09/25/18 09:30 Epinephrine HCl 4 mg/Sodium Chloride 254 ml @ 26.44 mls/ hr CONT PRN 09/23/18 02:15 09/27/18 15:53 DC Etomidate (Amidate) 20 mg STK-MED ONCE 09/22/18 20:36 09/22/18 20:37 DC Famotidine (Pepcid Vial) 20 mg QHS 09/25/18 21:00 09/30/18 20:55 20 MG Fentanyl Citrate 30 ml @ 0 mls/hr CONT PRN 09/23/18 22:30 09/27/18 15:53 DC 09/27/18 07:03 2.5 MLS/HR Fentanyl Citrate (Fentanyl 2ml Vial) 50 mcg PRN Q1HR PRN 09/22/18 23:30 09/29/18 21:48 50 MCG Haloperidol (Haldol) 5 mg QHS 09/28/18 21:00 09/30/18 20:55 5 MG Haloperidol Lactate (Haldol Inj) 5 mg 1X ONCE 09/29/18 15:15 09/29/18 15:16 DC 09/29/18 15:15 5 MG Heparin Sodium (Porcine) (Heparin Sodium) 10,000 unit STK-MED ONCE 09/22/18 19:17 09/22/18 19:18 DC Info (Tpn Per Pharmacy) 1 each PRN DAILY PRN 09/24/18 08:15 09/30/18 12:04 1 EACH Insulin Human Lispro (HumaLOG) 0-5 UNITS Q6HRS 09/25/18 12:00 09/27/18 12:50 2 UNITS Lidocaine/Sodium Bicarbonate (Buffered Lidocaine 1%) 4 ml 1X ONCE 09/22/18 19:15 09/22/18 19:18 DC 09/22/18 19:15 4 ML Linezolid/Dextrose 300 ml @ 300 mls/hr Q12HR 09/25/18 13:00 09/28/18 17:06 DC 09/28/18 08:52 300 MLS/HR Lorazepam (Ativan) 0.5 mg PRN Q6HRS PRN 09/27/18 21:15 09/29/18 00:20 0.5 MG Midazolam HCl 100 ml @ 5 mls/hr CONT PRN 09/22/18 19:00 09/29/18 11:55 DC 09/25/18 19:41 5 MLS/HR Non-Formulary Medication (Desvenlafaxine Succinate (Pristiq Er)) 1 tab DAILY 09/27/18 09:00 UNV Norepinephrine Bitartrate 250 ml @ 1.875 mls/ hr CONT PRN 09/22/18 23:30 09/27/18 15:53 DC 09/24/18 12:54 3.75 MLS/HR Ondansetron HCl (Zofran) 4 mg PRN Q6HRS PRN 09/29/18 11:30 Pantoprazole Sodium (PROTONIX VIAL for IV PUSH) 40 mg DAILYAC 09/25/18 13:00 09/25/18 13:00 DC Pantoprazole Sodium 80 mg/ Sodium Chloride 100 ml @ 10 mls/hr Q10H 09/22/18 17:15 09/24/18 15:43 DC 09/24/18 05:46 10 MLS/HR Piperacillin Sod/ Tazobactam Sod (Zosyn Per Pharmacy) 1 each PRN DAILY PRN 09/22/18 17:30 Piperacillin Sod/ Tazobactam Sod 3.375 gm/Sodium Chloride 50 ml @ 100 mls/hr Q6HRS 09/23/18 00:00 10/01/18 05:20 100 MLS/HR Potassium Chloride 15 meq/ Magnesium Sulfate 2.5 meq/Calcium Chloride 5 meq/ Bicarbonate Dialysis Soln w/ out KCl 5,011.6871 ml @ 1,000 mls/hr Q5H1M 09/24/18 04:30 09/24/18 17:00 DC 09/24/18 04:34 1,000 MLS/HR Potassium Chloride 15 meq/ Magnesium Sulfate 5 meq/Calcium Chloride 5 meq/ Bicarbonate Dialysis Soln w/ out KCl 5,012.3029 ml @ 1,000 mls/hr Q5H1M 09/23/18 20:30 09/24/18 04:06 DC 09/23/18 23:50 1,000 MLS/HR Potassium Chloride 35 meq/ Magnesium Sulfate 2.5 meq/Calcium Chloride 5 meq/ Bicarbonate Dialysis Soln w/ out KCl 5,021.6871 ml @ 1,000 mls/hr Q5H2M 09/24/18 04:30 09/24/18 17:00 DC 09/24/18 04:34 1,000 MLS/HR Potassium Chloride 35 meq/ Magnesium Sulfate 5 meq/Calcium Chloride 5 meq/ Bicarbonate Dialysis Soln w/ out KCl 5,022.3029 ml @ 1,000 mls/hr Q5H2M 09/23/18 20:30 09/24/18 04:06 DC 09/23/18 23:49 1,000 MLS/HR Potassium Chloride/Water 50 ml @ 50 mls/hr Q1H 09/25/18 09:00 09/25/18 10:59 DC 09/25/18 10:39 50 MLS/HR Rocuronium [place] (Zemuron) 50 mg STK-MED ONCE 09/22/18 20:36 09/22/18 20:37 DC Sodium Bicarbonate 150 meq/Sterile Water 1,150 ml @ 300 mls/hr Q3H50M 09/22/18 22:00 09/24/18 15:44 DC 09/24/18 05:45 300 MLS/HR Sodium Bicarbonate 40 meq/Potassium Chloride 15 meq/ Magnesium Sulfate 5 meq/Calcium Chloride 17.5 meq/ Bicarbonate Dialysis Soln w/ out KCl 5,061.2315 ml @ 1,000 mls/hr Q5H4M 09/23/18 10:00 09/23/18 10:33 DC 09/23/18 10:12 1,000 MLS/HR Sodium Bicarbonate 40 meq/Potassium Chloride 15 meq/ Magnesium Sulfate 5 meq/Calcium Chloride 2.5 meq/ Bicarbonate Dialysis Soln w/ out KCl 5,050.5172 ml @ 1,000 mls/hr Q5H4M 09/22/18 22:00 09/23/18 08:43 DC 09/23/18 05:02 1,000 MLS/HR Sodium Bicarbonate 40 meq/Potassium Chloride 15 meq/ Magnesium Sulfate 5 meq/Calcium Chloride 5 meq/ Bicarbonate Dialysis Soln w/ out KCl 5,052.3029 ml @ 1,000 mls/hr Q5H4M 09/23/18 10:45 09/23/18 19:28 DC 09/23/18 15:39 1,000 MLS/HR Sodium Acetate 45 meq/Potassium Acetate 25 meq/ Potassium Phosphate 13.6 mmol/Magnesium Sulfate 10 meq/ Calcium Gluconate 10 meq/ Multivitamins 10 ml/Chromium/ Copper/Manganese/ Seleni/Zn 1 ml/ Total Parenteral Nutrition/Amino Acids/Dextrose/ Fat Emulsion Intravenous 1,422 ml @ 59.25 mls/ hr TPN CONT 09/24/18 22:00 09/25/18 21:59 DC 09/24/18 22:50 59.25 MLS/HR Sodium Bicarbonate (Sodium Bicarb Adult 8.4% Syr) 50 meq 1X ONCE 09/22/18 17:45 09/22/18 17:46 DC 09/22/18 18:03 50 MEQ Sodium Chloride 30 meq/Sodium Acetate 10 meq/ Potassium Acetate 35 meq/Potassium Phosphate 17 mmol/ Magnesium Sulfate 5 meq/Calcium Gluconate 10 meq/ Multivitamins 10 ml/Chromium/ Copper/Manganese/ Seleni/Zn 1 ml/ Total Parenteral Nutrition/Amino Acids/Dextrose/ Fat Emulsion Intravenous 1,512 ml @ 63 mls/hr TPN CONT 09/30/18 22:00 10/01/18 21:59 09/30/18 20:56 63 MLS/HR Sodium Chloride 40 meq/Potassium Acetate 35 meq/ Potassium Phosphate 17 mmol/ Magnesium Sulfate 5 meq/Calcium Gluconate 10 meq/ Multivitamins 10 ml/Chromium/ Copper/Manganese/ Seleni/Zn 1 ml/ Total Parenteral Nutrition/Amino Acids/Dextrose/ Fat Emulsion Intravenous 1,512 ml @ 63 mls/hr TPN CONT 09/29/18 22:00 09/30/18 21:59 DC 09/29/18 21:18 63 MLS/HR Sodium Chloride 45 meq/Potassium Acetate 35 meq/ Potassium Phosphate 17 mmol/ Magnesium Sulfate 5 meq/Calcium Gluconate 10 meq/ Multivitamins 10 ml/Chromium/ Copper/Manganese/ Seleni/Zn 1 ml/ Total Parenteral Nutrition/Amino Acids/Dextrose/ Fat Emulsion Intravenous 1,512 ml @ 63 mls/hr TPN CONT 09/28/18 22:00 09/29/18 21:59 DC 09/28/18 23:00 63 MLS/HR Sodium Chloride 90 meq/Potassium Chloride 50 meq/ Potassium Phosphate 13.6 mmol/Magnesium Sulfate 10 meq/ Calcium Gluconate 10 meq/ Multivitamins 10 ml/Chromium/ Copper/Manganese/ Seleni/Zn 1 ml/ Total Parenteral Nutrition/Amino Acids/Dextrose/ Fat Emulsion Intravenous 87.0013 ml @ 3.625 mls/hr TPN CONT 09/24/18 22:00 09/25/18 21:59 UNV Sodium Phosphate 10 mmol/Dextrose 253.3333 ml @ 63.333 m... 1X ONCE 09/25/18 16:00 09/25/18 19:59 DC 09/25/18 16:16 63.333 MLS/HR Vancomycin HCl (Vanco Per Pharmacy) 1 each PRN DAILY PRN 09/22/18 17:30 09/25/18 12:02 DC 09/24/18 21:37 1 EACH Vancomycin HCl (Vancomycin Trough Level) 1 each 1X ONCE 09/24/18 20:30 09/24/18 20:31 DC 09/24/18 20:30 1 EACH Vancomycin HCl 1.75 gm/Sodium Chloride 500 ml @ 250 mls/hr 1X ONCE 09/22/18 17:30 09/22/18 19:29 DC 09/22/18 23:28 250 MLS/HR Vancomycin HCl 1 gm/Sodium Chloride 250 ml @ 250 mls/hr Q24H 09/23/18 21:00 09/25/18 12:02 DC 09/24/18 21:38 250 MLS/HR Vasopressin 40 unit/Dextrose 102 ml @ 6 mls/hr CONT PRN 09/22/18 18:45 09/27/18 15:12 DC 09/24/18 12:53 6 MLS/HR Labs: Lab Laboratory Tests Test 09/30/18 11:04 09/30/18 16:43 09/30/18 23:16 10/01/18 03:00 Glucose (Fingerstick) 173 mg/dL (70-99) 149 mg/dL (70-99) 133 mg/dL (70-99) White Blood Count 10.1 x10^3/uL (4.0-11.0) Red Blood Count 2.97 x10^6/uL (3.50-5.40) Hemoglobin 8.9 g/dL (12.0-15.5) Hematocrit 27.1 % (36.0-47.0) Mean Corpuscular Volume 91 fL (79-100) Mean Corpuscular Hemoglobin 30 pg (25-35) Mean Corpuscular Hemoglobin Concent 33 g/dL (31-37) Red Cell Distribution Width 17.2 % (11.5-14.5) Platelet Count 171 x10^3/uL (140-400) Neutrophils (%) (Auto) 68 % (31-73) Lymphocytes (%) (Auto) 14 % (24-48) Monocytes (%) (Auto) 13 % (0-9) Eosinophils (%) (Auto) 5 % (0-3) Basophils (%) (Auto) 1 % (0-3) Neutrophils # (Auto) 6.8 x10^3uL (1.8-7.7) Lymphocytes # (Auto) 1.4 x10^3/uL (1.0-4.8) Monocytes # (Auto) 1.3 x10^3/uL (0.0-1.1) Eosinophils # (Auto) 0.5 x10^3/uL (0.0-0.7) Basophils # (Auto) 0.1 x10^3/uL (0.0-0.2) Segmented Neutrophils % 51 % (35-66) Band Neutrophils % 15 % (0-9) Lymphocytes % 14 % (24-48) Monocytes % 12 % (0-10) Eosinophils % 6 % (0-5) Basophils % 1 % (0-3) Metamyelocytes % 1 % (0-0) Toxic Granulation Slight Platelet Estimate Adequate (ADEQUATE) Polychromasia Slight Anisocytosis Slight Spherocytes Occ Tear Drop Cells Occ Ovalocytes Few Schistocytes Occ Sodium Level 146 mmol/L (136-145) Potassium Level 4.5 mmol/L (3.5-5.1) Chloride Level 110 mmol/L (98-107) Carbon Dioxide Level 20 mmol/L (21-32) Anion Gap 16 (6-14) Blood Urea Nitrogen 16 mg/dL (7-20) Creatinine 1.0 mg/dL (0.6-1.0) Estimated GFR (Cockcroft-Gault) 55.8 Glucose Level 136 mg/dL (70-99) Calcium Level 8.1 mg/dL (8.5-10.1) Phosphorus Level 3.6 mg/dL (2.6-4.7) Magnesium Level 1.4 mg/dL (1.8-2.4) Test 10/01/18 05:22 10/01/18 09:20 Glucose (Fingerstick) 133 mg/dL (70-99) Urine Collection Type Unknown Urine Color Yellow Urine Clarity Clear Urine pH 8.5 Urine Specific [place] 1.015 Urine Protein Negative mg/dL (NEG-TRACE) Urine Glucose (UA) Negative mg/dL (NEG) Urine Ketones (Stick) Negative mg/dL (NEG) Urine Blood Small (NEG) Urine Nitrite Negative (NEG) Urine Bilirubin Negative (NEG) Urine Urobilinogen Dipstick 0.2 mg/dL (0.2 mg/dL) Urine Leukocyte Esterase Negative (NEG) Urine RBC 3-5 /HPF (0-2) Urine WBC 5-10 /HPF (0-4) Urine Squamous Epithelial Cells Few /LPF Urine Bacteria Few /HPF (0-FEW) Urine Mucus Slight /LPF Objective: Assessment: Pt seen and examined Febrile illness on zosyn source could be JESSENIA,CLABSI/UTI vs other septic shock GNR bacteremia ? source could be GI final id and janina pending MARII,Metabolic acidosis resolved GI Bleed anemia thrombocytopenia Plan: Plan of Care DC Zosyn micafungin,merrem and vanco bc ua and urine c/s Maintain aspiration precautions D/W RN Thank you [phone] LUKE VERDIN MD Oct 01, 2018 11:00
--- NOTE | 2018-10-01 11:49 | PDOC ---
Objective: Objective: Per staff - refusing to eat this morning, wants to get out of bed. 500mL stool charted. Vital Signs: Vital Signs Date Time Temp Pulse Resp B/P (MAP) Pulse Ox O2 Delivery O2 Flow Rate FiO2 10/01/18 10:37 96 Room Air 10/01/18 07:14 100.1 109 18 93/26 (48) 100.1 Labs: Laboratory Tests Test 09/30/18 16:43 09/30/18 23:16 10/01/18 03:00 10/01/18 05:22 Glucose (Fingerstick) 149 mg/dL 133 mg/dL 133 mg/dL White Blood Count 10.1 x10^3/uL Red Blood Count 2.97 x10^6/uL Hemoglobin 8.9 g/dL Hematocrit 27.1 % Mean Corpuscular Volume 91 fL Mean Corpuscular Hemoglobin 30 pg Mean Corpuscular Hemoglobin Concent 33 g/dL Red Cell Distribution Width 17.2 % Platelet Count 171 x10^3/uL Neutrophils (%) (Auto) 68 % Lymphocytes (%) (Auto) 14 % Monocytes (%) (Auto) 13 % Eosinophils (%) (Auto) 5 % Basophils (%) (Auto) 1 % Neutrophils # (Auto) 6.8 x10^3uL Lymphocytes # (Auto) 1.4 x10^3/uL Monocytes # (Auto) 1.3 x10^3/uL Eosinophils # (Auto) 0.5 x10^3/uL Basophils # (Auto) 0.1 x10^3/uL Segmented Neutrophils % 51 % Band Neutrophils % 15 % Lymphocytes % 14 % Monocytes % 12 % Eosinophils % 6 % Basophils % 1 % Metamyelocytes % 1 % Toxic Granulation Slight Platelet Estimate Adequate Polychromasia Slight Anisocytosis Slight Spherocytes Occ Tear Drop Cells Occ Ovalocytes Few Schistocytes Occ Sodium Level 146 mmol/L Potassium Level 4.5 mmol/L Chloride Level 110 mmol/L Carbon Dioxide Level 20 mmol/L Anion Gap 16 Blood Urea Nitrogen 16 mg/dL Creatinine 1.0 mg/dL Estimated GFR (Cockcroft-Gault) 55.8 Glucose Level 136 mg/dL Calcium Level 8.1 mg/dL Phosphorus Level 3.6 mg/dL Magnesium Level 1.4 mg/dL Test 10/01/18 09:20 Urine Collection Type Unknown Urine Color Yellow Urine Clarity Clear Urine pH 8.5 Urine Specific [place] 1.015 Urine Protein Negative mg/dL Urine Glucose (UA) Negative mg/dL Urine Ketones (Stick) Negative mg/dL Urine Blood Small Urine Nitrite Negative Urine Bilirubin Negative Urine Urobilinogen Dipstick 0.2 mg/dL Urine Leukocyte Esterase Negative Urine RBC 3-5 /HPF Urine WBC 5-10 /HPF Urine Squamous Epithelial Cells Few /LPF Urine Bacteria Few /HPF Urine Mucus Slight /LPF PE: GEN: NAD LUNGS: room air HEART: tachycardic ABD: non-tender, rectal tube/bag with brown stool NEURO/PSYCH: confused A/P: Fever, ?GNR bacteremia, recent resp failure/pneumonia Encephalopathy Anemia - stable Diarrhea - has rectal tube, C Diff neg S/p gastric bypass Dysphagia after intubation - was tolerating dysphagia diet per [employer], refusing food this morning, on TPN -- Continue support. ZHOU BLANC Oct 01, 2018 11:49
[2018-10-01] MEDS ORDERED: VANCOMYCIN 1.75 GM in IV NORMAL SALINE 500ML BAG 500 ML IV ONE (12:00)
[2018-10-01] MEDS: MICAFUNGIN 100 MG in IV DEXTROSE 5% 100ML 100 ML IV SCH (12:28)
[2018-10-01] MEDS: TPN PER PHARMACY MC PRN ×2 (12:46→12:48)
[2018-10-01] MEDS: MEROPENEM 500 MG in IV NORMAL SALINE 50ML 50 ML IV SCH ×2 (14:20→22:07)
[2018-10-01 15:14] VITALS: BP 162/70
[2018-10-01] MEDS: ACETAMINOPHEN 325 MG TABLET. PO PRN (15:22)
[2018-10-01 19:00] VITALS: BP 186/100
[2018-10-01] MEDS: VANCOMYCIN PER PHARMACY MC PRN (19:36)
--- NOTE | 2018-10-01 19:46 | NUR ---
Pharmacy Vancomycin Dosing Note S:Consulted to monitor and dose vancomycin started 09/22/18. O:ISABELL BUCIO is a 63 year old F with Empiric FEBRILE, MANY SOURCES BEING ENTERTAINED . Height: 5 feet, 0 inches Weight: 68.010971 kg [place] Body Weight: 45.50 Adjusted Body Weight: 54.10 Dosing Weight: Actual Other Antibiotics: MERREM 3/4 - MULTIPLE PREVIOUS INCLUDING VANC LABS: Last BUN: 16 Last Creatinine: 1.0 Creatinine Clearance: 49 mL/min Last WBC: 10.1 Last Procalcitonin: 7.29 Tmax (past 24 hours): 100.7 Microbiology: 3/4 YEAST, GPC SPUTUM. I/O: 900/1400 Drug Levels: Last Trough level: 14.3 on 09/24/18 at 2030 Last dose given 10/01/18 at 1500 Vancomycin Dosing: Loading Dose: 1500 mg x1 Dosing Weight: Actual Target Trough: 15-20 A: Based on: weight, CrCl~49 ml/min P: 1. Initiate Vancomycin 1000 mg IV q24h after 1500 mg loading dose. 2. Follow up Trough level on 10/03/18 at 1430 3. Pharmacy will continue to monitor, follow and adjust therapy as needed. JOSE FRANCISCO HERNANDEZ [facility], 10/01/18 1946
[2018-10-01] MEDS: HALOPERIDOL 5 MG TABLET. PO SCH (20:34)
[2018-10-01] MEDS: LACTOBACILLUS RHAMNOSUS GG 1 CAPSULE. PO SCH (20:34)
[2018-10-01] MEDS: FAMOTIDINE 20 MG TABLET. PO SCH (20:34)
[2018-10-01] MEDS ORDERED: DEXTROSE 70% IV SCH ×11 (22:00)
[2018-10-01] MEDS ORDERED: AMINO ACID IV SCH ×11 (22:00)
[2018-10-01] MEDS ORDERED: [UNRECOGNIZED DRUG - OTHER] IV SCH ×11 (22:00)
[2018-10-01] MEDS ORDERED: TOTAL PARENTERAL NUTRITION IV SCH ×11 (22:00)
[2018-10-01 23:00] VITALS: BP 125/55
[2018-10-02] MEDS: INSULIN LISPRO 300 UNITS/3 ML INSULN.PEN. SQ SCH ×4 (01:09→17:56)
[2018-10-02 03:00] VITALS: BP 151/67
--- NOTE | 2018-10-02 03:49 | CONS ---
DATE OF CONSULTATION: 10/01/2018 REFERRING PHYSICIAN: Dr. Seay REASON FOR CONSULTATION: Fever. HISTORY OF PRESENT ILLNESS: History obtained from medical records and staff Pt remains on 1:1 A 63-year-old female admitted on 09/22/2018 to ICU with septic shock , acute respiratory failure on ventilator and pressors. The patient was brought in to ED for altered mental status and melena. CT head neg for acute process. The patient had a CT abdomen and chest done when she was admitted with left lower lobe atelectasis/pneumonia mild. The patient had large colonic stool burden. She had undergone a femoral line placement. She required 3 units of blood and FFP transfusion. The patient was in [facility] with severe metabolic acidosis, was started on CRRT, had right IJ placed and HD catheter placed. The patient was started on empiric Zosyn. Renal, GI and pulmonary team were following. The patient had blood cultures from 09/22, 1 out of 4 bottles positive for gram-negative rods, tiny . I discussed with micro lab,final ID and MELODY still pending at this time. Urine cultures were negative. The patient has sputum from 09/25, which was contaminated with yeast present. The patient pulled out her right subclavian and HDC a couple of days ago, had PICC line placement last Monday, is currently on TPN due to poor po intake. Last fever prior to 09/29 was on 09/24 at 101.2. The patient's white count is normal. This am her temp is down to 100 *F Pt does not answer all questions, says yes and no to some questions. Remains on 1:1. Discussed with RN. Her p.o. intake is poor. She remains on TPN. No nausea, no vomiting,no diarrhea, no shortness of breath, no cough, no abdominal pain and no rash. PAST MEDICAL HISTORY: Bipolar disorder and hypertension. PAST SURGICAL HISTORY: Status post cholecystectomy, bilateral shoulder surgery and right knee surgery. ALLERGIES: ASPIRIN, MORPHINE AND OXYCODONE. CURRENT MEDICATIONS: Zosyn, was also given one dose of vancomycin prior to admission. TPN. Other medications reviewed in medication list. SOCIAL HISTORY: Remote history of smoking per chart. FAMILY HISTORY: As per HPI. REVIEW OF SYSTEMS: Limited as the patient is confused. Obtained from the chart and discussed with RN. PHYSICAL EXAMINATION: GENERAL: Obese female, lying in bed comfortably on 1:1. VITAL SIGNS: Temperature 100.1 and T-max was 101.2, pulse 109, respiratory rate 18, blood pressure 93/26 and oxygen saturation 98% on room air. GENERAL: Alert, awake female, sitting, propped up in bed, in no acute distress. HEENT: Normocephalic and atraumatic. Poor dentition. No thrush. NECK: Supple, no lymphadenopathy. HEART: S1, S2. No murmurs. ABDOMEN: Soft, bowel sounds present, nontender, nondistended. Numerous surgical scars well healed. LUNGS: Decreased breath sounds at the bases, otherwise clear. EXTREMITIES: No edema, no cyanosis. GENITOURINARY: Mckinney in place. NEUROLOGIC: Alert, awake and confused. Moves all 4 extremities. DERM: Warm, dry. No generalized skin rash. LABORATORY DATA: WBC 10.1, hemoglobin 8.9, hematocrit 27.1, platelets 171, bands 15. Sodium 146, potassium 4.5, chloride 110, bicarbonate 20, BUN 16, creatinine 1.0, glucose 136, calcium 8.1, magnesium 1.4. UA shows 5-10 wbc's, negative leukocyte esterase, C. diff negative. Nasal screen, MRSA PCR positive. Occult blood, 09/22, positive. Micro blood culture on 09/22/2018, 1 out of 3 bottles positive for very tiny gram-negative rods. ID and MELODY pending per my discussion with microbiology lab today. Urine culture on 09/22, no growth. Sputum culture, contamination and yeast positive. IMAGING: Chest x-ray 09/29/2018 shows probable slight retraction of PICC line. CT abdomen and pelvis, tip of the ET tube in the proximal right main stem bronchus and should be withdrawn by approximately 3 cm, partial consolidation of left lower lobe along the superior aspect of the right major fissure may be secondary to atelectasis or pneumonia. Mild loss of thoracic and lumbar vertebral bodies likely mild compression deformities. Large amount of colonic stool burden. The patient may be constipated. IMPRESSION: 1. Febrile illness on Zosyn in pt who has been in the hosp since Sep 22 2018 source unclear but cannot r/o JESSENIA including line infection ,UTI or CLABSI 2. History of septic shock on presentation, now resolved. 3. Gram-negative [place], 1/4 bottles from 09/22/2018, ID still pending per my discussion with microbiology lab today, sent to lab jeanie 4. Acute kidney injury requiring hemodialysis, improving,HDC now removed. 5. Gastrointestinal bleed. 6. Severe metabolic acidosis on presentation 7. Encephalopathy, improved. 8. History of schizophrenia and mood disorder. 9. Protein-calorie malnutrition, on TPN. 10. PICC line placed 2 days ago. 11. Bandemia. 12. Clostridium difficile negative. 13. Thrombocytopenia, resolved. 14. Anemia. RECOMMENDATIONS: 1. Discontinue Zosyn 2. Start meropenem, IV vancomycin and micafungin. 3. Monitor renal functions closely. 4. Adjust dose of vancomycin depending on renal functions. 5. UA and urine cultures. 6. Blood cultures x 2. 7. Follow up labs in a.m. and cultures. 8. Continue supportive care. 9. Maintain aspiration precautions. 10. Discussed with RN. Thank you for consulting Infectious Disease to participate in this patient's care. If you have any questions, do not hesitate to contact me. LUKE VERDIN MD DR: NIXON/nanette JOB#: [id number] / [id number] JOSE RAUL
[2018-10-02] MEDS: MEROPENEM 500 MG in IV NORMAL SALINE 50ML 50 ML IV SCH ×3 (05:53→22:18)
[2018-10-02 06:33] LABS: MAGNESIUM 1.5 mg/dL (1.8-2.4)
[2018-10-02] MEDS: LACTOBACILLUS RHAMNOSUS GG 1 CAPSULE. PO SCH ×2 (07:27→22:20)
[2018-10-02 07:32] VITALS: BP 120/60
[2018-10-02] MEDS: IPRATRPIUM/ALBUTEROL 0.5/2.5MG 3 ML NEBU. NEB SCH ×4 (08:00→20:21)
--- NOTE | 2018-10-02 08:04 | PDOC ---
PROGRESS NOTES Subjective Subjective Patient awake and calm. Not answering questions appropriately. Objective Objective Vital Signs Date Time Temp Pulse Resp B/P (MAP) Pulse Ox O2 Delivery O2 Flow Rate FiO2 10/02/18 07:32 99.1 98 12 120/60 (80) 96 Room Air 99.1 09/28/18 08:51 Intake and Output 10/02/18 07:00 Intake Total 0 ml Output Total 2550 ml Balance -2550 ml Intake Oral 0 ml Output Urine Total 2000 ml Stool Total 550 ml Physical Exam Abdomen: Normal bowel sounds, Soft, No tenderness Heart: Regular rate Extremities: No edema General: Alert, No acute distress Lungs: Clear to auscultation Plan Plan of Care 1. Fever - improving. Now on broad-spectrum abx per ID. Awaiting culture reports. 2. acute respiratory failure with pneumonia - resolved. 3. metabolic acidosis with acute renal failure - resolved. 4. GI bleed - resolved, Hgb stable. 5. schizophrenia with metabolic encephalopathy - mental status mildly improved. Continue home medications and supportive care, avoid excess sedation (IV Fentanyl d/c). 6. dysphagia - continue ST treatments, dysphagia diet and TPN (due to poor po intake). 7. debility - continue therapies. To skilled or LTAC when ready for discharge. Comment Review of Relevant I have reviewed the following items michelle (where applicable) has been applied. Labs Laboratory Tests Test 09/30/18 10:55 09/30/18 11:04 09/30/18 16:43 09/30/18 23:16 White Blood Count 7.6 x10^3/uL (4.0-11.0) Red Blood Count 2.96 x10^6/uL (3.50-5.40) Hemoglobin 8.9 g/dL (12.0-15.5) Hematocrit 27.2 % (36.0-47.0) Mean Corpuscular Volume 92 fL (79-100) Mean Corpuscular Hemoglobin 30 pg (25-35) Mean Corpuscular Hemoglobin Concent 33 g/dL (31-37) Red Cell Distribution Width 16.7 % (11.5-14.5) Platelet Count 156 x10^3/uL (140-400) Neutrophils (%) (Auto) 71 % (31-73) Lymphocytes (%) (Auto) 12 % (24-48) Monocytes (%) (Auto) 13 % (0-9) Eosinophils (%) (Auto) 4 % (0-3) Basophils (%) (Auto) 1 % (0-3) Neutrophils # (Auto) 5.3 x10^3uL (1.8-7.7) Lymphocytes # (Auto) 0.9 x10^3/uL (1.0-4.8) Monocytes # (Auto) 1.0 x10^3/uL (0.0-1.1) Eosinophils # (Auto) 0.3 x10^3/uL (0.0-0.7) Basophils # (Auto) 0.1 x10^3/uL (0.0-0.2) Sodium Level 145 mmol/L (136-145) Potassium Level 4.2 mmol/L (3.5-5.1) Chloride Level 112 mmol/L (98-107) Carbon Dioxide Level 21 mmol/L (21-32) Anion Gap 12 (6-14) Blood Urea Nitrogen 19 mg/dL (7-20) Creatinine 1.1 mg/dL (0.6-1.0) Estimated GFR (Cockcroft-Gault) 50.0 Glucose Level 192 mg/dL (70-99) Calcium Level 7.9 mg/dL (8.5-10.1) Glucose (Fingerstick) 173 mg/dL (70-99) 149 mg/dL (70-99) 133 mg/dL (70-99) Test 10/01/18 03:00 10/01/18 05:22 10/01/18 09:20 10/01/18 12:15 White Blood Count 10.1 x10^3/uL (4.0-11.0) Red Blood Count 2.97 x10^6/uL (3.50-5.40) Hemoglobin 8.9 g/dL (12.0-15.5) Hematocrit 27.1 % (36.0-47.0) Mean Corpuscular Volume 91 fL (79-100) Mean Corpuscular Hemoglobin 30 pg (25-35) Mean Corpuscular Hemoglobin Concent 33 g/dL (31-37) Red Cell Distribution Width 17.2 % (11.5-14.5) Platelet Count 171 x10^3/uL (140-400) Neutrophils (%) (Auto) 68 % (31-73) Lymphocytes (%) (Auto) 14 % (24-48) Monocytes (%) (Auto) 13 % (0-9) Eosinophils (%) (Auto) 5 % (0-3) Basophils (%) (Auto) 1 % (0-3) Neutrophils # (Auto) 6.8 x10^3uL (1.8-7.7) Lymphocytes # (Auto) 1.4 x10^3/uL (1.0-4.8) Monocytes # (Auto) 1.3 x10^3/uL (0.0-1.1) Eosinophils # (Auto) 0.5 x10^3/uL (0.0-0.7) Basophils # (Auto) 0.1 x10^3/uL (0.0-0.2) Segmented Neutrophils % 51 % (35-66) Band Neutrophils % 15 % (0-9) Lymphocytes % 14 % (24-48) Monocytes % 12 % (0-10) Eosinophils % 6 % (0-5) Basophils % 1 % (0-3) Metamyelocytes % 1 % (0-0) Toxic Granulation Slight Platelet Estimate Adequate (ADEQUATE) Polychromasia Slight Anisocytosis Slight Spherocytes Occ Tear Drop Cells Occ Ovalocytes Few Schistocytes Occ Sodium Level 146 mmol/L (136-145) Potassium Level 4.5 mmol/L (3.5-5.1) Chloride Level 110 mmol/L (98-107) Carbon Dioxide Level 20 mmol/L (21-32) Anion Gap 16 (6-14) Blood Urea Nitrogen 16 mg/dL (7-20) Creatinine 1.0 mg/dL (0.6-1.0) Estimated GFR (Cockcroft-Gault) 55.8 Glucose Level 136 mg/dL (70-99) Calcium Level 8.1 mg/dL (8.5-10.1) Phosphorus Level 3.6 mg/dL (2.6-4.7) Magnesium Level 1.4 mg/dL (1.8-2.4) Glucose (Fingerstick) 133 mg/dL (70-99) 108 mg/dL (70-99) Urine Collection Type Unknown Urine Color Yellow Urine Clarity Clear Urine pH 8.5 Urine Specific [place] 1.015 Urine Protein Negative mg/dL (NEG-TRACE) Urine Glucose (UA) Negative mg/dL (NEG) Urine Ketones (Stick) Negative mg/dL (NEG) Urine Blood Small (NEG) Urine Nitrite Negative (NEG) Urine Bilirubin Negative (NEG) Urine Urobilinogen Dipstick 0.2 mg/dL (0.2 mg/dL) Urine Leukocyte Esterase Negative (NEG) Urine RBC 3-5 /HPF (0-2) Urine WBC 5-10 /HPF (0-4) Urine Squamous Epithelial Cells Few /LPF Urine Bacteria Few /HPF (0-FEW) Urine Mucus Slight /LPF Test 10/01/18 18:16 10/02/18 01:07 10/02/18 06:00 10/02/18 06:37 Glucose (Fingerstick) 125 mg/dL (70-99) 120 mg/dL (70-99) 117 mg/dL (70-99) Magnesium Level 1.5 mg/dL (1.8-2.4) Triglycerides Level 136 mg/dL (0-150) Laboratory Tests Test 10/01/18 09:20 10/01/18 12:15 10/01/18 18:16 10/02/18 01:07 Urine Collection Type Unknown Urine Color Yellow Urine Clarity Clear Urine pH 8.5 Urine Specific [place] 1.015 Urine Protein Negative mg/dL (NEG-TRACE) Urine Glucose (UA) Negative mg/dL (NEG) Urine Ketones (Stick) Negative mg/dL (NEG) Urine Blood Small (NEG) Urine Nitrite Negative (NEG) Urine Bilirubin Negative (NEG) Urine Urobilinogen Dipstick 0.2 mg/dL (0.2 mg/dL) Urine Leukocyte Esterase Negative (NEG) Urine RBC 3-5 /HPF (0-2) Urine WBC 5-10 /HPF (0-4) Urine Squamous Epithelial Cells Few /LPF Urine Bacteria Few /HPF (0-FEW) Urine Mucus Slight /LPF Glucose (Fingerstick) 108 mg/dL (70-99) 125 mg/dL (70-99) 120 mg/dL (70-99) Test 10/02/18 06:00 10/02/18 06:37 Magnesium Level 1.5 mg/dL (1.8-2.4) Triglycerides Level 136 mg/dL (0-150) Glucose (Fingerstick) 117 mg/dL (70-99) Microbiology 09/22/18 Blood Culture - Preliminary, Resulted 09/22/18 Blood Culture Result 1 (MELODY) - Preliminary, Resulted 09/25/18 - Final, Complete 09/25/18 - Final, Complete 09/25/18 - Final, Complete 09/25/18 Gram Stain Evaluation - Final, Complete 09/25/18 Sputum Culture - Final, Complete 09/25/18 Sputum Result 1 - Final, Complete 09/25/18 Sputum Result 2 - Final, Complete 09/22/18 Urine Culture - Final, Complete 09/22/18 Urine Culture Result 1 (MELODY) - Final, Complete Medications Current Medications Sodium Chloride 1,000 ml @ 1,000 mls/hr 1X ONCE IV Last administered on at 17:18; Start 09/22/18 at 17:15; Stop 09/22/18 at 18:14; Status DC Pantoprazole Sodium 80 mg/ Sodium Chloride 100 ml @ 10 mls/hr Q10H IV Last administered on 09/24/18at 05:46; Start 09/22/18 at 17:15; Stop 09/24/18 at 15:43 ; Status DC Pantoprazole Sodium (PROTONIX VIAL for IV PUSH) 80 mg 1X ONCE IVP Last administered on 09/22/18at 17:39; Start 09/22/18 at 17:15; Stop 09/22/18 at 17:17 ; Status DC Ceftriaxone Sodium (Rocephin) 1 gm 1X ONCE IVP ; Start 09/22/18 at 17:30; Stop 09/22/18 at 17:30; Status DC Sodium Chloride 1,000 ml @ 1,000 mls/hr 1X ONCE IV Last administered on at 17:27; Start 09/22/18 at 17:30; Stop 09/22/18 at 18:29; Status DC Vancomycin HCl (Vanco Per Pharmacy) 1 each PRN DAILY PRN MC SEE COMMENTS Last administered on 09/24/18at 21:37; Start 09/22/18 at 17:30; Stop 09/25/18 at 12:02 ; Status DC Piperacillin Sod/ Tazobactam Sod (Zosyn Per Pharmacy) 1 each PRN DAILY PRN MC SEE COMMENTS; Start 09/22/18 at 17:30 Piperacillin Sod/ Tazobactam Sod 3.375 gm/Sodium Chloride 50 ml @ 100 mls/hr 1X ONCE IV Last administered on 09/22/18 18:04; Start 09/22/18 at 17:30; Stop 09/22/18 at 17:59; Status DC Vancomycin HCl 1.75 gm/Sodium Chloride 500 ml @ 250 mls/hr 1X ONCE IV Last administered on 09/22/18at 23:28; Start 09/22/18 at 17:30; Stop 09/22/18 at 19:29 ; Status DC Sodium Bicarbonate (Sodium Bicarb Adult 8.4% Syr) 50 meq 1X ONCE IV Last administered on 09/22/18 18:03; Start 09/22/18 at 17:45; Stop 09/22/18 at 17:46 ; Status DC Norepinephrine Bitartrate 250 ml @ 0 mls/hr 1X ONCE IV Last administered on 17:51; Start 09/22/18 at 17:45; Stop 09/22/18 at 17:46; Status DC Sodium Bicarbonate 150 meq/Sterile Water 1,150 ml @ 125 mls/hr 1X ONCE IV Last administered on 09/22/18 18:30; Start 09/22/18 at 18:30; Stop 09/23/18 at 03:41; Status DC Piperacillin Sod/ Tazobactam Sod 3.375 gm/Sodium Chloride 50 ml @ 100 mls/hr Q6HRS IV Last administered on 10/01/18at 05:20; Start 09/23/18 at 00:00; Stop 10/01/18 at 11:20; Status DC Vasopressin 40 unit/Dextrose 102 ml @ 6 mls/hr CONT PRN IV SEE I/O RECORD Last administered on 09/24/18at 12:53; Start 09/22/18 at 18:45; Stop 09/27/18 at 15:12 ; Status DC Fentanyl Citrate (Fentanyl 2ml Vial) 50 mcg 1X ONCE IV ; Start 09/22/18 at 19: 00; Stop 09/22/18 at 19:01; Status DC Midazolam HCl 100 ml @ 5 mls/hr CONT PRN IV SEE I/O RECORD Last administered on 09/25/18at 19:41; Start 09/22/18 at 19:00; Stop 09/29/18 at 11:55; Status DC Lidocaine/Sodium Bicarbonate (Buffered Lidocaine 1%) 4 ml 1X ONCE INJ Last administered on 09/22/18at 19:15; Start 09/22/18 at 19:15; Stop 09/22/18 at 19:18 ; Status DC Heparin Sodium (Porcine) (Heparin Sodium) 2,500 unit 1X ONCE INT CAT Last administered on 09/22/18at 19:15; Start 09/22/18 at 19:15; Stop 09/22/18 at 19:18 ; Status DC Heparin Sodium (Porcine) (Heparin Sodium) 10,000 unit STK-MED ONCE .ROUTE ; Start 09/22/18 at 19:17; Stop 09/22/18 at 19:18; Status DC Sodium Bicarbonate 40 meq/Potassium Chloride 15 meq/ Magnesium Sulfate 5 meq/ Calcium Chloride 2.5 meq/ Bicarbonate Dialysis Soln w/ out KCl 5,050.5172 ml @ 1 ,000 mls/hr Q5H4M IV Last administered on 09/23/18at 05:02; Start 09/22/18 at 22 :00; Stop 09/23/18 at 08:43; Status DC Sodium Bicarbonate 40 meq/Potassium Chloride 15 meq/ Magnesium Sulfate 5 meq/ Calcium Chloride 2.5 meq/ Bicarbonate Dialysis Soln w/ out KCl 5,050.5172 ml @ 1 ,000 mls/hr Q5H4M IV Last administered on 09/23/18at 05:02; Start 09/22/18 at 22 :00; Stop 09/23/18 at 08:43; Status DC Sodium Bicarbonate 150 meq/Sterile Water 1,150 ml @ 300 mls/hr Q3H50M IV Last administered on 09/24/18at 05:45; Start 09/22/18 at 22:00; Stop 09/24/18 at 15:44 ; Status DC Etomidate (Amidate) 20 mg STK-MED ONCE IV ; Start 09/22/18 at 20:36; Stop at 20:37; Status DC Rocuronium Nerinx (Zemuron) 50 mg STK-MED ONCE .ROUTE ; Start 09/22/18 at 20:36 ; Stop 09/22/18 at 20:37; Status DC Norepinephrine Bitartrate 250 ml @ 1.875 mls/ hr CONT PRN IV SEE I/O RECORD Last administered on 09/24/18at 12:54; Start 09/22/18 at 23:30; Stop 09/27/18 at 15:53; Status DC Fentanyl Citrate (Fentanyl 2ml Vial) 50 mcg PRN Q1HR PRN IV PAIN Last administered on 09/29/18at 21:48; Start 09/22/18 at 23:30 Epinephrine HCl 4 mg/Sodium Chloride 254 ml @ 26.44 mls/ hr CONT PRN IV SEE I/ O RECORD; Start 09/23/18 at 02:15; Stop 09/27/18 at 15:53; Status DC Albuterol/ Ipratropium (Duoneb) 3 ml RTQID NEB Last administered on 10/01/18at 19 :54; Start 09/23/18 at 08:00 Sodium Bicarbonate 40 meq/Potassium Chloride 15 meq/ Magnesium Sulfate 5 meq/ Calcium Chloride 17.5 meq/ Bicarbonate Dialysis Soln w/ out KCl 5,061.2315 ml @ 1,000 mls/hr Q5H4M IV Last administered on 09/23/18at 10:13; Start 09/23/18 at 10:00; Stop 09/23/18 at 10:32; Status DC Sodium Bicarbonate 40 meq/Potassium Chloride 15 meq/ Magnesium Sulfate 5 meq/ Calcium Chloride 17.5 meq/ Bicarbonate Dialysis Soln w/ out KCl 5,061.2315 ml @ 1,000 mls/hr Q5H4M IV Last administered on 09/23/18at 10:12; Start 09/23/18 at 10:00; Stop 09/23/18 at 10:33; Status DC Sodium Bicarbonate 40 meq/Potassium Chloride 15 meq/ Magnesium Sulfate 5 meq/ Calcium Chloride 5 meq/ Bicarbonate Dialysis Soln w/ out KCl 5,052.3029 ml @ 1, 000 mls/hr Q5H4M IV Last administered on 09/23/18at 15:40; Start 09/23/18 at 11: 00; Stop 09/23/18 at 19:28; Status DC Sodium Bicarbonate 40 meq/Potassium Chloride 15 meq/ Magnesium Sulfate 5 meq/ Calcium Chloride 5 meq/ Bicarbonate Dialysis Soln w/ out KCl 5,052.3029 ml @ 1, 000 mls/hr Q5H4M IV Last administered on 09/23/18at 15:39; Start 09/23/18 at 10: 45; Stop 09/23/18 at 19:28; Status DC Vancomycin HCl 1 gm/Sodium Chloride 250 ml @ 250 mls/hr Q24H IV Last administered on 09/24/18at 21:38; Start 09/23/18 at 21:00; Stop 09/25/18 at 12:02 ; Status DC Vancomycin HCl (Vancomycin Trough Level) 1 each 1X ONCE MC Last administered on 09/24/18at 20:30; Start 09/24/18 at 20:30; Stop 09/24/18 at 20:31; Status DC Potassium Chloride 15 meq/ Magnesium Sulfate 5 meq/Calcium Chloride 5 meq/ Bicarbonate Dialysis Soln w/ out KCl 5,012.3029 ml @ 1,000 mls/hr Q5H1M IV Last administered on 09/23/18at 23:50; Start 09/23/18 at 20:30; Stop 09/24/18 at 04:06; Status DC Potassium Chloride 35 meq/ Magnesium Sulfate 5 meq/Calcium Chloride 5 meq/ Bicarbonate Dialysis Soln w/ out KCl 5,022.3029 ml @ 1,000 mls/hr Q5H2M IV Last administered on 09/23/18at 23:49; Start 09/23/18 at 20:30; Stop 09/24/18 at 04:06; Status DC Fentanyl Citrate 30 ml @ 0 mls/hr CONT PRN IV SEE PROTOCOL Last administered on 09/27/18at 07:03; Start 09/23/18 at 22:30; Stop 09/27/18 at 15:53; Status DC Chlorhexidine Gluconate (Peridex) 15 ml BID MM Last administered on 09/24/18at 21:41; Start 09/24/18 at 09:00; Stop 09/25/18 at 09:30; Status DC Potassium Chloride 15 meq/ Magnesium Sulfate 2.5 meq/Calcium Chloride 5 meq/ Bicarbonate Dialysis Soln w/ out KCl 5,011.6871 ml @ 1,000 mls/hr Q5H1M IV Last administered on 09/24/18at 04:34; Start 09/24/18 at 04:30; Stop 09/24/18 at 17:00; Status DC Potassium Chloride 35 meq/ Magnesium Sulfate 2.5 meq/Calcium Chloride 5 meq/ Bicarbonate Dialysis Soln w/ out KCl 5,021.6871 ml @ 1,000 mls/hr Q5H2M IV Last administered on 09/24/18at 04:34; Start 09/24/18 at 04:30; Stop 09/24/18 at 17:00; Status DC Sodium Chloride 90 meq/Potassium Chloride 50 meq/ Potassium Phosphate 13.6 mmol/ Magnesium Sulfate 10 meq/ Calcium Gluconate 10 meq/ Multivitamins 10 ml/Chromium / Copper/Manganese/ Seleni/Zn 1 ml/ Total Parenteral Nutrition/Amino Acids/ Dextrose/ Fat Emulsion Intravenous 87.0013 ml @ 3.625 mls/hr TPN CONT IV ; Start 09/24/18 at 22:00; Stop 09/25/18 at 21:59; Status UNV Info (Tpn Per Pharmacy) 1 each PRN DAILY PRN MC SEE COMMENTS Last administered on 10/01/18at 12:48; Start 09/24/18 at 08:15 Sodium Acetate 45 meq/Potassium Acetate 25 meq/ Potassium Phosphate 13.6 mmol/ Magnesium Sulfate 10 meq/ Calcium Gluconate 10 meq/ Multivitamins 10 ml/Chromium / Copper/Manganese/ Seleni/Zn 1 ml/ Total Parenteral Nutrition/Amino Acids/ Dextrose/ Fat Emulsion Intravenous 1,422 ml @ 59.25 mls/ hr TPN CONT IV Last administered on 09/24/18at 22:50; Start 09/24/18 at 22:00; Stop 09/25/18 at 21:59 ; Status DC Potassium Chloride/Water 50 ml @ 50 mls/hr Q1H IV Last administered on at 10:39; Start 09/25/18 at 09:00; Stop 09/25/18 at 10:59; Status DC Insulin Human Lispro (HumaLOG) 0-5 UNITS Q6HRS SQ Last administered on at 12:50; Start 09/25/18 at 12:00 Dextrose (Dextrose 50%-Water Syringe) 12.5 gm PRN Q15MIN PRN IV SEE COMMENTS; Start 09/25/18 at 09:30 Famotidine (Pepcid Vial) 20 mg QHS IVP Last administered on 09/30/18at 20:55; Start 09/25/18 at 21:00; Stop 10/01/18 at 11:50; Status DC Linezolid/Dextrose 300 ml @ 300 mls/hr Q12HR IV Last administered on 09/28/18at 08:52; Start 09/25/18 at 13:00; Stop 09/28/18 at 17:06; Status DC Pantoprazole Sodium (PROTONIX VIAL for IV PUSH) 40 mg DAILYAC IVP ; Start at 13:00; Stop 09/25/18 at 13:00; Status DC Sodium Chloride 45 meq/Potassium Acetate 35 meq/ Potassium Phosphate 17 mmol/ Magnesium Sulfate 5 meq/Calcium Gluconate 10 meq/ Multivitamins 10 ml/Chromium/ Copper/Manganese/ Seleni/Zn 1 ml/ Total Parenteral Nutrition/Amino Acids/ Dextrose/ Fat Emulsion Intravenous 1,512 ml @ 63 mls/hr TPN CONT IV Last administered on 09/25/18at 22:10; Start 09/25/18 at 22:00; Stop 09/26/18 at 13:53 ; Status DC Sodium Phosphate 10 mmol/Dextrose 253.3333 ml @ 63.333 m... 1X ONCE IV Last administered on 09/25/18at 16:16; Start 09/25/18 at 16:00; Stop 09/25/18 at 19:59 ; Status DC Amitriptyline HCl (Elavil) 25 mg QHS PO ; Start 09/26/18 at 21:00; Status UNV Non-Formulary Medication (Desvenlafaxine Succinate (Pristiq Er)) 1 tab DAILY PO ; Start 09/27/18 at 09:00; Status UNV Haloperidol (Haldol) 10 mg HS PO Last administered on 09/26/18at 21:20; Start at 21:00; Stop 09/27/18 at 21:07; Status DC Sodium Chloride 45 meq/Potassium Acetate 35 meq/ Potassium Phosphate 17 mmol/ Magnesium Sulfate 5 meq/Calcium Gluconate 10 meq/ Multivitamins 10 ml/Chromium/ Copper/Manganese/ Seleni/Zn 1 ml/ Total Parenteral Nutrition/Amino Acids/ Dextrose/ Fat Emulsion Intravenous 1,512 ml @ 63 mls/hr TPN CONT IV ; Start at 22:00; Stop 09/27/18 at 21:59; Status Cancel Sodium Chloride 45 meq/Potassium Acetate 35 meq/ Potassium Phosphate 17 mmol/ Magnesium Sulfate 5 meq/Calcium Gluconate 10 meq/ Multivitamins 10 ml/Chromium/ Copper/Manganese/ Seleni/Zn 1 ml/ Total Parenteral Nutrition/Amino Acids/ Dextrose/ Fat Emulsion Intravenous 1,512 ml @ 63 mls/hr TPN CONT IV Last administered on 09/26/18at 21:31; Start 09/26/18 at 22:00; Stop 09/27/18 at 21:59 ; Status DC Lorazepam (Ativan) 0.5 mg PRN Q6HRS PRN PO ANXIETY / AGITATION Last administered on 09/30/18 20:54; Start 09/27/18 at 08:15 Sodium Chloride 45 meq/Potassium Acetate 35 meq/ Potassium Phosphate 17 mmol/ Magnesium Sulfate 5 meq/Calcium Gluconate 10 meq/ Multivitamins 10 ml/Chromium/ Copper/Manganese/ Seleni/Zn 1 ml/ Total Parenteral Nutrition/Amino Acids/ Dextrose/ Fat Emulsion Intravenous 1,512 ml @ 63 mls/hr TPN CONT IV Last administered on 09/27/18 21:34; Start 09/27/18 at 22:00; Stop 09/28/18 at 21:59 ; Status DC Haloperidol Lactate (Haldol Inj) 10 mg HS IVP Last administered on 09/27/18at 21 :33; Start 09/27/18 at 22:00; Stop 09/28/18 at 07:58; Status DC Lorazepam (Ativan) 0.5 mg PRN Q6HRS PRN IV ANXIETY / AGITATION Last administered on 09/29/18 00:20; Start 09/27/18 at 21:15 Haloperidol (Haldol) 10 mg PRN QHS PRN PO AGITATION IF TAKING PO; Start at 21:15; Stop 09/28/18 at 08:02; Status DC Haloperidol (Haldol) 5 mg QHS PO Last administered on 10/01/18 20:34; Start 09/28/18 at 21:00 Sodium Chloride 45 meq/Potassium Acetate 35 meq/ Potassium Phosphate 17 mmol/ Magnesium Sulfate 5 meq/Calcium Gluconate 10 meq/ Multivitamins 10 ml/Chromium/ Copper/Manganese/ Seleni/Zn 1 ml/ Total Parenteral Nutrition/Amino Acids/ Dextrose/ Fat Emulsion Intravenous 1,512 ml @ 63 mls/hr TPN CONT IV Last administered on 09/28/18at 23:00; Start 09/28/18 at 22:00; Stop 09/29/18 at 21:59; Status DC Ondansetron HCl (Zofran) 4 mg PRN Q6HRS PRN IV NAUSEA/VOMITING; Start 09/29/18 at 11:30 Sodium Chloride 40 meq/Potassium Acetate 35 meq/ Potassium Phosphate 17 mmol/ Magnesium Sulfate 5 meq/Calcium Gluconate 10 meq/ Multivitamins 10 ml/Chromium/ Copper/Manganese/ Seleni/Zn 1 ml/ Total Parenteral Nutrition/Amino Acids/ Dextrose/ Fat Emulsion Intravenous 1,512 ml @ 63 mls/hr TPN CONT IV Last administered on 09/29/18 21:18; Start 09/29/18 at 22:00; Stop 09/30/18 at 21:59; Status DC Haloperidol Lactate (Haldol Inj) 5 mg 1X ONCE IM Last administered on 15:15; Start 09/29/18 at 15:15; Stop 09/29/18 at 15:16; Status DC Sodium Chloride 30 meq/Sodium Acetate 10 meq/ Potassium Acetate 35 meq/ Potassium Phosphate 17 mmol/ Magnesium Sulfate 5 meq/Calcium Gluconate 10 meq/ Multivitamins 10 ml/Chromium/ Copper/Manganese/ Seleni/Zn 1 ml/ Total Parenteral Nutrition/Amino Acids/Dextrose/ Fat Emulsion Intravenous 1,512 ml @ 63 mls/hr TPN CONT IV Last administered on 09/30/18 20:56; Start 09/30/18 at 22 :00; Stop 10/01/18 at 21:59; Status DC Acetaminophen (Tylenol) 650 mg PRN Q6HRS PRN PO FEVER Last administered on 15:22; Start 09/30/18 at 14:00 Meropenem 500 mg/ Sodium Chloride 50 ml @ 100 mls/hr Q8HRS IV Last administered on 10/02/18 05:53; Start 10/01/18 at 14:00 Vancomycin HCl (Vanco Per Pharmacy) 1 each PRN DAILY PRN MC SEE COMMENTS Last administered on 10/01/18 19:36; Start 10/01/18 at 11:30 Micafungin Sodium 100 mg/Dextrose 100 ml @ 100 mls/hr Q24H IV Last administered on 10/01/18 12:28; Start 10/01/18 at 12:00 Vancomycin HCl 1.75 gm/Sodium Chloride 500 ml @ 250 mls/hr 1X ONCE IV Last administered on 10/01/18 15:01; Start 10/01/18 at 12:00; Stop 10/01/18 at 13:59; Status DC Famotidine (Pepcid) 20 mg QHS PO Last administered on 10/01/18at 20:34; Start 10/01/18 at 21:00 Sodium Chloride 30 meq/Sodium Acetate 10 meq/ Potassium Acetate 35 meq/ Potassium Phosphate 17 mmol/ Magnesium Sulfate 10 meq/Calcium Gluconate 10 meq/ Multivitamins 10 ml/Chromium/ Copper/Manganese/ Seleni/Zn 1 ml/ Total Parenteral Nutrition/Amino Acids/Dextrose/ Fat Emulsion Intravenous 1,512 ml @ 63 mls/hr TPN CONT IV Last administered on 10/01/18at 22:10; Start 10/01/18 at 22 :00; Stop 10/02/18 at 21:59 Lactobacillus Rhamnosus (Culturelle) 1 cap BID PO Last administered on at 07:27; Start 10/01/18 at 21:00 Vancomycin HCl 1 gm/Sodium Chloride 250 ml @ 250 mls/hr Q24H IV ; Start at 15:00 Vancomycin HCl (Vancomycin Trough Level) 1 each 1X ONCE MC ; Start 10/03/18 at 14:30; Stop 10/03/18 at 14:31 Active Scripts Active Reported [iron] 325 Mg PO Haloperidol 10 Mg Tablet 10 Mg PO QHS Ventolin Hfa Inhaler (Albuterol Sulfate) 18 Gm Hfa.aer.ad 2 Puff INH Q4HRS PRN Pristiq Er (Desvenlafaxine Succinate) 50 Mg Tab.er.24h 1 Tab PO DAILY Amitriptyline Hcl 25 Mg Tablet 1 Tab PO QHS Diazepam 5 Mg Tablet 5 Mg PO TID Gabapentin (Gabapentin) 300 Mg Capsule 300 Mg PO TID Vitals/I & O Vital Sign - Last 24 Hours 10/01/18 10/01/18 10/01/18 10/01/18 10:37 11:00 14:38 15:14 Temp 98.6 100.1 98.6 100.1 Pulse 111 114 Resp 22 20 B/P (MAP) 146/104 (118) 162/70 (100) Pulse Ox 96 97 97 O2 Delivery Room Air Room Air Room Air Room Air 10/01/18 10/01/18 10/01/18 10/01/18 19:00 19:55 20:05 23:00 Temp 99.7 99.6 99.7 99.6 Pulse 107 111 Resp 20 20 B/P (MAP) 186/100 (128) 125/55 (78) Pulse Ox 97 97 95 O2 Delivery Room Air Room Air Room Air Room Air 10/02/18 10/02/18 03:00 07:32 Temp 98.8 99.1 98.8 99.1 Pulse 102 98 Resp 20 12 B/P (MAP) 151/67 (95) 120/60 (80) Pulse Ox 97 96 O2 Delivery Room Air Room Air Intake and Output 10/01/18 10/01/18 10/02/18 15:00 23:00 07:00 Intake Total 0 ml Output Total 500 ml 750 ml 1300 ml Balance -500 ml -750 ml -1300 ml MILY COOK MD Oct 02, 2018 08:04
--- NOTE | 2018-10-02 09:17 | PDOC ---
PULMONARY PROGRESS NOTES Subjective PT OFF 02 EXTUBATED 09/27 LESS CONFUSED TODAY EATING Vitals Vital Signs Date Time Temp Pulse Resp B/P (MAP) Pulse Ox O2 Delivery O2 Flow Rate FiO2 10/02/18 08:00 95 Room Air 10/02/18 07:32 99.1 98 12 120/60 (80) 99.1 General: Alert Lungs: Clear, Other (decrease bs) Cardiovascular: S1, S2 Abdomen: Soft, Non-tender Neuro Exam: Alert Extremities: Other (1+edema) Labs Laboratory Tests Test 09/30/18 10:55 09/30/18 11:04 09/30/18 16:43 09/30/18 23:16 White Blood Count 7.6 x10^3/uL (4.0-11.0) Red Blood Count 2.96 x10^6/uL (3.50-5.40) Hemoglobin 8.9 g/dL (12.0-15.5) Hematocrit 27.2 % (36.0-47.0) Mean Corpuscular Volume 92 fL (79-100) Mean Corpuscular Hemoglobin 30 pg (25-35) Mean Corpuscular Hemoglobin Concent 33 g/dL (31-37) Red Cell Distribution Width 16.7 % (11.5-14.5) Platelet Count 156 x10^3/uL (140-400) Neutrophils (%) (Auto) 71 % (31-73) Lymphocytes (%) (Auto) 12 % (24-48) Monocytes (%) (Auto) 13 % (0-9) Eosinophils (%) (Auto) 4 % (0-3) Basophils (%) (Auto) 1 % (0-3) Neutrophils # (Auto) 5.3 x10^3uL (1.8-7.7) Lymphocytes # (Auto) 0.9 x10^3/uL (1.0-4.8) Monocytes # (Auto) 1.0 x10^3/uL (0.0-1.1) Eosinophils # (Auto) 0.3 x10^3/uL (0.0-0.7) Basophils # (Auto) 0.1 x10^3/uL (0.0-0.2) Sodium Level 145 mmol/L (136-145) Potassium Level 4.2 mmol/L (3.5-5.1) Chloride Level 112 mmol/L (98-107) Carbon Dioxide Level 21 mmol/L (21-32) Anion Gap 12 (6-14) Blood Urea Nitrogen 19 mg/dL (7-20) Creatinine 1.1 mg/dL (0.6-1.0) Estimated GFR (Cockcroft-Gault) 50.0 Glucose Level 192 mg/dL (70-99) Calcium Level 7.9 mg/dL (8.5-10.1) Glucose (Fingerstick) 173 mg/dL (70-99) 149 mg/dL (70-99) 133 mg/dL (70-99) Test 10/01/18 03:00 10/01/18 05:22 10/01/18 09:20 10/01/18 12:15 White Blood Count 10.1 x10^3/uL (4.0-11.0) Red Blood Count 2.97 x10^6/uL (3.50-5.40) Hemoglobin 8.9 g/dL (12.0-15.5) Hematocrit 27.1 % (36.0-47.0) Mean Corpuscular Volume 91 fL (79-100) Mean Corpuscular Hemoglobin 30 pg (25-35) Mean Corpuscular Hemoglobin Concent 33 g/dL (31-37) Red Cell Distribution Width 17.2 % (11.5-14.5) Platelet Count 171 x10^3/uL (140-400) Neutrophils (%) (Auto) 68 % (31-73) Lymphocytes (%) (Auto) 14 % (24-48) Monocytes (%) (Auto) 13 % (0-9) Eosinophils (%) (Auto) 5 % (0-3) Basophils (%) (Auto) 1 % (0-3) Neutrophils # (Auto) 6.8 x10^3uL (1.8-7.7) Lymphocytes # (Auto) 1.4 x10^3/uL (1.0-4.8) Monocytes # (Auto) 1.3 x10^3/uL (0.0-1.1) Eosinophils # (Auto) 0.5 x10^3/uL (0.0-0.7) Basophils # (Auto) 0.1 x10^3/uL (0.0-0.2) Segmented Neutrophils % 51 % (35-66) Band Neutrophils % 15 % (0-9) Lymphocytes % 14 % (24-48) Monocytes % 12 % (0-10) Eosinophils % 6 % (0-5) Basophils % 1 % (0-3) Metamyelocytes % 1 % (0-0) Toxic Granulation Slight Platelet Estimate Adequate (ADEQUATE) Polychromasia Slight Anisocytosis Slight Spherocytes Occ Tear Drop Cells Occ Ovalocytes Few Schistocytes Occ Sodium Level 146 mmol/L (136-145) Potassium Level 4.5 mmol/L (3.5-5.1) Chloride Level 110 mmol/L (98-107) Carbon Dioxide Level 20 mmol/L (21-32) Anion Gap 16 (6-14) Blood Urea Nitrogen 16 mg/dL (7-20) Creatinine 1.0 mg/dL (0.6-1.0) Estimated GFR (Cockcroft-Gault) 55.8 Glucose Level 136 mg/dL (70-99) Calcium Level 8.1 mg/dL (8.5-10.1) Phosphorus Level 3.6 mg/dL (2.6-4.7) Magnesium Level 1.4 mg/dL (1.8-2.4) Glucose (Fingerstick) 133 mg/dL (70-99) 108 mg/dL (70-99) Urine Collection Type Unknown Urine Color Yellow Urine Clarity Clear Urine pH 8.5 Urine Specific [place] 1.015 Urine Protein Negative mg/dL (NEG-TRACE) Urine Glucose (UA) Negative mg/dL (NEG) Urine Ketones (Stick) Negative mg/dL (NEG) Urine Blood Small (NEG) Urine Nitrite Negative (NEG) Urine Bilirubin Negative (NEG) Urine Urobilinogen Dipstick 0.2 mg/dL (0.2 mg/dL) Urine Leukocyte Esterase Negative (NEG) Urine RBC 3-5 /HPF (0-2) Urine WBC 5-10 /HPF (0-4) Urine Squamous Epithelial Cells Few /LPF Urine Bacteria Few /HPF (0-FEW) Urine Mucus Slight /LPF Test 10/01/18 18:16 10/02/18 01:07 10/02/18 06:00 10/02/18 06:37 Glucose (Fingerstick) 125 mg/dL (70-99) 120 mg/dL (70-99) 117 mg/dL (70-99) Magnesium Level 1.5 mg/dL (1.8-2.4) Triglycerides Level 136 mg/dL (0-150) Laboratory Tests Test 10/01/18 09:20 10/01/18 12:15 10/01/18 18:16 10/02/18 01:07 Urine Collection Type Unknown Urine Color Yellow Urine Clarity Clear Urine pH 8.5 Urine Specific [place] 1.015 Urine Protein Negative mg/dL (NEG-TRACE) Urine Glucose (UA) Negative mg/dL (NEG) Urine Ketones (Stick) Negative mg/dL (NEG) Urine Blood Small (NEG) Urine Nitrite Negative (NEG) Urine Bilirubin Negative (NEG) Urine Urobilinogen Dipstick 0.2 mg/dL (0.2 mg/dL) Urine Leukocyte Esterase Negative (NEG) Urine RBC 3-5 /HPF (0-2) Urine WBC 5-10 /HPF (0-4) Urine Squamous Epithelial Cells Few /LPF Urine Bacteria Few /HPF (0-FEW) Urine Mucus Slight /LPF Glucose (Fingerstick) 108 mg/dL (70-99) 125 mg/dL (70-99) 120 mg/dL (70-99) Test 10/02/18 06:00 10/02/18 06:37 Magnesium Level 1.5 mg/dL (1.8-2.4) Triglycerides Level 136 mg/dL (0-150) Glucose (Fingerstick) 117 mg/dL (70-99) Medications Active Scripts Medications Dose Route/Sig Max Daily Dose Days Date Category [iron] 325 Mg PO 09/23/18 Reported Haloperidol 10 Mg Tablet 10 Mg PO QHS 09/23/18 Reported Ventolin Hfa Inhaler (Albuterol Sulfate) 18 Gm Hfa.aer.ad 2 Puff INH Q4HRS PRN 07/04/18 Reported Pristiq Er (Desvenlafaxine Succinate) 50 Mg Tab.er.24h 1 Tab PO DAILY 07/01/18 Reported Amitriptyline Hcl 25 Mg Tablet 1 Tab PO QHS 07/01/18 Reported Diazepam 5 Mg Tablet 5 Mg PO TID 07/01/18 Reported Gabapentin (Gabapentin) 300 Mg Capsule 300 Mg PO TID 07/01/18 Reported Impression . 1. Acute respiratory failure, multifactorial in etiology including shock, acute kidney injury 2. SEPTIC SHOCK 3. Abnormal CT of the chest with left lower lobe dense atelectasis/ PNEUMONIA 4. Acute kidney injury. 5. Electrolyte abnormality. 6. Gastrointestinal bleeding. 7. Hypotension. 8. Severe metabolic acidosis secondary to shock and acute kidney injury 9. FEVER PER ID Plan . APPRECIATE DR COOK INPUT WILL CONTINUE THE SAME FOR NOW HOPE CAN TRANSFER IN AM ON ORAL DIET PT EATING ANTIBX PER ID CONTINUE THE SAME GNR B.C PENIDING FINAL EXTUBATED 09/27 OFF 02 WILL MONITOR RESP STATUS IS COMPENSATED FOLLOW NEPHRO DVT GI PROPHYLAXIS TITO ZAPATA MD Oct 02, 2018 09:17
--- NOTE | 2018-10-02 10:04 | PDOC ---
Infectious Disease Note Subjective: Subjective Pt slightly better today, smiled does not verbalize much on 1:1 d/w RN pt is doing better today ROS: ROS unable to obtain Vital Signs: Vital Signs Vital Signs Date Time Temp Pulse Resp B/P (MAP) Pulse Ox O2 Delivery O2 Flow Rate FiO2 10/02/18 08:00 95 Room Air 10/02/18 07:32 99.1 98 12 120/60 (80) 99.1 Medications: Inpatient Meds: Current Medications Medications (Trade) Dose Ordered Sig/Ashli Start Time Stop Time Status Last Admin Dose Admin Acetaminophen (Tylenol) 650 mg PRN Q6HRS PRN 09/30/18 14:00 10/01/18 15:22 650 MG Albuterol/ Ipratropium (Duoneb) 3 ml RTQID 09/23/18 08:00 10/02/18 08:00 3 ML Amitriptyline HCl (Elavil) 25 mg QHS 09/26/18 21:00 UNV Ceftriaxone Sodium (Rocephin) 1 gm 1X ONCE 09/22/18 17:30 09/22/18 17:30 DC Chlorhexidine Gluconate (Peridex) 15 ml BID 09/24/18 09:00 09/25/18 09:30 DC 09/24/18 21:41 15 ML Dextrose (Dextrose 50%-Water Syringe) 12.5 gm PRN Q15MIN PRN 09/25/18 09:30 Epinephrine HCl 4 mg/Sodium Chloride 254 ml @ 26.44 mls/ hr CONT PRN 09/23/18 02:15 09/27/18 15:53 DC Etomidate (Amidate) 20 mg STK-MED ONCE 09/22/18 20:36 09/22/18 20:37 DC Famotidine (Pepcid Vial) 20 mg QHS 09/25/18 21:00 10/01/18 11:50 DC 09/30/18 20:55 20 MG Famotidine (Pepcid) 20 mg QHS 10/01/18 21:00 10/01/18 20:34 20 MG Fentanyl Citrate 30 ml @ 0 mls/hr CONT PRN 09/23/18 22:30 09/27/18 15:53 DC 09/27/18 07:03 2.5 MLS/HR Fentanyl Citrate (Fentanyl 2ml Vial) 50 mcg PRN Q1HR PRN 09/22/18 23:30 10/02/18 07:55 DC 09/29/18 21:48 50 MCG Haloperidol (Haldol) 5 mg QHS 09/28/18 21:00 10/01/18 20:34 5 MG Haloperidol Lactate (Haldol Inj) 5 mg 1X ONCE 09/29/18 15:15 09/29/18 15:16 DC 09/29/18 15:15 5 MG Heparin Sodium (Porcine) (Heparin Sodium) 10,000 unit STK-MED ONCE 09/22/18 19:17 09/22/18 19:18 DC Info (Tpn Per Pharmacy) 1 each PRN DAILY PRN 09/24/18 08:15 10/01/18 12:48 1 EACH Insulin Human Lispro (HumaLOG) 0-5 UNITS Q6HRS 09/25/18 12:00 09/27/18 12:50 2 UNITS Lactobacillus Rhamnosus (Culturelle) 1 cap BID 10/01/18 21:00 10/02/18 07:27 1 CAP Lidocaine/Sodium Bicarbonate (Buffered Lidocaine 1%) 4 ml 1X ONCE 09/22/18 19:15 09/22/18 19:18 DC 09/22/18 19:15 4 ML Linezolid/Dextrose 300 ml @ 300 mls/hr Q12HR 09/25/18 13:00 09/28/18 17:06 DC 09/28/18 08:52 300 MLS/HR Lorazepam (Ativan) 0.5 mg PRN Q6HRS PRN 09/27/18 21:15 09/29/18 00:20 0.5 MG Meropenem 500 mg/ Sodium Chloride 50 ml @ 100 mls/hr Q8HRS 10/01/18 14:00 10/02/18 05:53 100 MLS/HR Micafungin Sodium 100 mg/Dextrose 100 ml @ 100 mls/hr Q24H 10/01/18 12:00 10/01/18 12:28 100 MLS/HR Midazolam HCl 100 ml @ 5 mls/hr CONT PRN 09/22/18 19:00 09/29/18 11:55 DC 09/25/18 19:41 5 MLS/HR Non-Formulary Medication (Desvenlafaxine Succinate (Pristiq Er)) 1 tab DAILY 09/27/18 09:00 UNV Norepinephrine Bitartrate 250 ml @ 1.875 mls/ hr CONT PRN 09/22/18 23:30 09/27/18 15:53 DC 09/24/18 12:54 3.75 MLS/HR Ondansetron HCl (Zofran) 4 mg PRN Q6HRS PRN 09/29/18 11:30 Pantoprazole Sodium (PROTONIX VIAL for IV PUSH) 40 mg DAILYAC 09/25/18 13:00 09/25/18 13:00 DC Pantoprazole Sodium 80 mg/ Sodium Chloride 100 ml @ 10 mls/hr Q10H 09/22/18 17:15 09/24/18 15:43 DC 09/24/18 05:46 10 MLS/HR Piperacillin Sod/ Tazobactam Sod (Zosyn Per Pharmacy) 1 each PRN DAILY PRN 09/22/18 17:30 Piperacillin Sod/ Tazobactam Sod 3.375 gm/Sodium Chloride 50 ml @ 100 mls/hr Q6HRS 09/23/18 00:00 10/01/18 11:20 DC 10/01/18 05:20 100 MLS/HR Potassium Chloride 15 meq/ Magnesium Sulfate 2.5 meq/Calcium Chloride 5 meq/ Bicarbonate Dialysis Soln w/ out KCl 5,011.6871 ml @ 1,000 mls/hr Q5H1M 09/24/18 04:30 09/24/18 17:00 DC 09/24/18 04:34 1,000 MLS/HR Potassium Chloride 15 meq/ Magnesium Sulfate 5 meq/Calcium Chloride 5 meq/ Bicarbonate Dialysis Soln w/ out KCl 5,012.3029 ml @ 1,000 mls/hr Q5H1M 09/23/18 20:30 09/24/18 04:06 DC 09/23/18 23:50 1,000 MLS/HR Potassium Chloride 35 meq/ Magnesium Sulfate 2.5 meq/Calcium Chloride 5 meq/ Bicarbonate Dialysis Soln w/ out KCl 5,021.6871 ml @ 1,000 mls/hr Q5H2M 09/24/18 04:30 09/24/18 17:00 DC 09/24/18 04:34 1,000 MLS/HR Potassium Chloride 35 meq/ Magnesium Sulfate 5 meq/Calcium Chloride 5 meq/ Bicarbonate Dialysis Soln w/ out KCl 5,022.3029 ml @ 1,000 mls/hr Q5H2M 09/23/18 20:30 09/24/18 04:06 DC 09/23/18 23:49 1,000 MLS/HR Potassium Chloride/Water 50 ml @ 50 mls/hr Q1H 09/25/18 09:00 09/25/18 10:59 DC 09/25/18 10:39 50 MLS/HR Rocuronium [place] (Zemuron) 50 mg STK-MED ONCE 09/22/18 20:36 09/22/18 20:37 DC Sodium Bicarbonate 150 meq/Sterile Water 1,150 ml @ 300 mls/hr Q3H50M 09/22/18 22:00 09/24/18 15:44 DC 09/24/18 05:45 300 MLS/HR Sodium Bicarbonate 40 meq/Potassium Chloride 15 meq/ Magnesium Sulfate 5 meq/Calcium Chloride 17.5 meq/ Bicarbonate Dialysis Soln w/ out KCl 5,061.2315 ml @ 1,000 mls/hr Q5H4M 09/23/18 10:00 09/23/18 10:33 DC 09/23/18 10:12 1,000 MLS/HR Sodium Bicarbonate 40 meq/Potassium Chloride 15 meq/ Magnesium Sulfate 5 meq/Calcium Chloride 2.5 meq/ Bicarbonate Dialysis Soln w/ out KCl 5,050.5172 ml @ 1,000 mls/hr Q5H4M 09/22/18 22:00 09/23/18 08:43 DC 09/23/18 05:02 1,000 MLS/HR Sodium Bicarbonate 40 meq/Potassium Chloride 15 meq/ Magnesium Sulfate 5 meq/Calcium Chloride 5 meq/ Bicarbonate Dialysis Soln w/ out KCl 5,052.3029 ml @ 1,000 mls/hr Q5H4M 09/23/18 10:45 09/23/18 19:28 DC 09/23/18 15:39 1,000 MLS/HR Sodium Acetate 45 meq/Potassium Acetate 25 meq/ Potassium Phosphate 13.6 mmol/Magnesium Sulfate 10 meq/ Calcium Gluconate 10 meq/ Multivitamins 10 ml/Chromium/ Copper/Manganese/ Seleni/Zn 1 ml/ Total Parenteral Nutrition/Amino Acids/Dextrose/ Fat Emulsion Intravenous 1,422 ml @ 59.25 mls/ hr TPN CONT 09/24/18 22:00 09/25/18 21:59 DC 09/24/18 22:50 59.25 MLS/HR Sodium Bicarbonate (Sodium Bicarb Adult 8.4% Syr) 50 meq 1X ONCE 09/22/18 17:45 09/22/18 17:46 DC 09/22/18 18:03 50 MEQ Sodium Chloride 30 meq/Sodium Acetate 10 meq/ Potassium Acetate 35 meq/Potassium Phosphate 17 mmol/ Magnesium Sulfate 5 meq/Calcium Gluconate 10 meq/ Multivitamins 10 ml/Chromium/ Copper/Manganese/ Seleni/Zn 1 ml/ Total Parenteral Nutrition/Amino Acids/Dextrose/ Fat Emulsion Intravenous 1,512 ml @ 63 mls/hr TPN CONT 09/30/18 22:00 10/01/18 21:59 DC 09/30/18 20:56 63 MLS/HR Sodium Chloride 30 meq/Sodium Acetate 10 meq/ Potassium Acetate 35 meq/Potassium Phosphate 17 mmol/ Magnesium Sulfate 10 meq/Calcium Gluconate 10 meq/ Multivitamins 10 ml/Chromium/ Copper/Manganese/ Seleni/Zn 1 ml/ Total Parenteral Nutrition/Amino Acids/Dextrose/ Fat Emulsion Intravenous 1,512 ml @ 63 mls/hr TPN CONT 10/01/18 22:00 10/02/18 21:59 10/01/18 22:10 63 MLS/HR Sodium Chloride 40 meq/Potassium Acetate 35 meq/ Potassium Phosphate 17 mmol/ Magnesium Sulfate 5 meq/Calcium Gluconate 10 meq/ Multivitamins 10 ml/Chromium/ Copper/Manganese/ Seleni/Zn 1 ml/ Total Parenteral Nutrition/Amino Acids/Dextrose/ Fat Emulsion Intravenous 1,512 ml @ 63 mls/hr TPN CONT 09/29/18 22:00 09/30/18 21:59 DC 09/29/18 21:18 63 MLS/HR Sodium Chloride 45 meq/Potassium Acetate 35 meq/ Potassium Phosphate 17 mmol/ Magnesium Sulfate 5 meq/Calcium Gluconate 10 meq/ Multivitamins 10 ml/Chromium/ Copper/Manganese/ Seleni/Zn 1 ml/ Total Parenteral Nutrition/Amino Acids/Dextrose/ Fat Emulsion Intravenous 1,512 ml @ 63 mls/hr TPN CONT 09/28/18 22:00 09/29/18 21:59 DC 09/28/18 23:00 63 MLS/HR Sodium Chloride 90 meq/Potassium Chloride 50 meq/ Potassium Phosphate 13.6 mmol/Magnesium Sulfate 10 meq/ Calcium Gluconate 10 meq/ Multivitamins 10 ml/Chromium/ Copper/Manganese/ Seleni/Zn 1 ml/ Total Parenteral Nutrition/Amino Acids/Dextrose/ Fat Emulsion Intravenous 87.0013 ml @ 3.625 mls/hr TPN CONT 09/24/18 22:00 09/25/18 21:59 UNV Sodium Phosphate 10 mmol/Dextrose 253.3333 ml @ 63.333 m... 1X ONCE 09/25/18 16:00 09/25/18 19:59 DC 09/25/18 16:16 63.333 MLS/HR Vancomycin HCl (Vanco Per Pharmacy) 1 each PRN DAILY PRN 10/01/18 11:30 10/01/18 19:36 1 EACH Vancomycin HCl (Vancomycin Trough Level) 1 each 1X ONCE 10/03/18 14:30 10/03/18 14:31 Vancomycin HCl 1.75 gm/Sodium Chloride 500 ml @ 250 mls/hr 1X ONCE 10/01/18 12:00 10/01/18 13:59 DC 10/01/18 15:01 250 MLS/HR Vancomycin HCl 1 gm/Sodium Chloride 250 ml @ 250 mls/hr Q24H 10/02/18 15:00 Vasopressin 40 unit/Dextrose 102 ml @ 6 mls/hr CONT PRN 09/22/18 18:45 09/27/18 15:12 DC 09/24/18 12:53 6 MLS/HR Labs: Lab Laboratory Tests Test 10/01/18 12:15 10/01/18 18:16 10/02/18 01:07 10/02/18 06:00 Glucose (Fingerstick) 108 mg/dL (70-99) 125 mg/dL (70-99) 120 mg/dL (70-99) Magnesium Level 1.5 mg/dL (1.8-2.4) Triglycerides Level 136 mg/dL (0-150) Test 10/02/18 06:37 Glucose (Fingerstick) 117 mg/dL (70-99) Objective: Assessment: Febrile illness on zosyn 09/29/2018,now pattern improving septic shock POA GNR bacteremia ? source unclear, final id and janina still pending MARII,Metabolic acidosis resolved GI Bleed anemia thrombocytopenia Plan: Plan of Care micafungin,merrem and vanco f/u c/s and labs monitor renal functions closely Maintain aspiration precautions D/W LUKE DELCID MD Oct 02, 2018 10:04
[2018-10-02 11:00] VITALS: BP 119/57
[2018-10-02] MEDS: MICAFUNGIN 100 MG in IV DEXTROSE 5% 100ML 100 ML IV SCH (12:51)
--- NOTE | 2018-10-02 12:56 | PDOC ---
Objective: Objective: Per staff - not interested in eating, now rectal tube and hare out. Vital Signs: Vital Signs Date Time Temp Pulse Resp B/P (MAP) Pulse Ox O2 Delivery O2 Flow Rate FiO2 10/02/18 11:00 98.9 93 16 119/57 (77) 97 Room Air 98.9 Labs: Laboratory Tests Test 10/01/18 18:16 10/02/18 01:07 10/02/18 06:00 10/02/18 06:37 Glucose (Fingerstick) 125 mg/dL 120 mg/dL 117 mg/dL Magnesium Level 1.5 mg/dL Triglycerides Level 136 mg/dL PE: GEN: NAD - staff present NEURO/PSYCH: confused A/P: Encephalopathy, ?GNR bacteremia Anemia - stable Diarrhea - better, rectal tube out today S/p gastric bypass -- Continue support. ZHOU BLANC Oct 02, 2018 12:56
[2018-10-02] MEDS: TPN PER PHARMACY MC PRN (14:30)
[2018-10-02 15:00] VITALS: BP 161/80
[2018-10-02] MEDS ORDERED: VANCOMYCIN 1 GM in IV NORMAL SALINE 250ML 250 ML IV SCH (15:00)
--- NOTE | 2018-10-02 15:28 | NUR ---
Pharmacy TPN Dosing Note S: ISABELL BUCIO is a 63 year old F Currently receiving Central Continuous TPN started 09/24/18 B:Pertinent PMH: recent critical illness, continued poor po intake Height: 5 feet, 0 inches Weight: 66.5 kg Current diet: DYSPHAGIA LABS: Sodium: 146 Potassium: 4.5 Chloride: 110 Calcium: 8.1 Corrected Calcium: 9.22 Magnesium: 1.4 CO2: 20 SCr: 1.0 Glucose: 117-137 Albumin: 2.6 AST: 80 ALT: 39 TPN FORMULA: TPN TYPE: Central Continuous AMINO ACIDS: 60 gm DEXTROSE: 225 gm LIPIDS: 20 gm SODIUM CHLORIDE: 30 mEq SODIUM ACETATE: 10 mEq POTASSIUM ACETATE: 35 mEq POTASSIUM PHOSPHATE: 17 mmol MAGNESIUM: 5 mEq CALCIUM: 10 mEq MULTIPLE VITAMIN: 10 ml TRACE ELEMENTS: MTE5 1ML TPN PLAN: No changes to TPN today; magnesium 1g bolus ordered. Labs in AM. R: Continue TPN Will monitor electrolytes, glucose, and tolerance to TPN. Alysia Flowers [facility], 10/02/18 1527
[2018-10-02] MEDS ORDERED: MAGNESIUM SULFATE 1GM 100 ML IV ONE (15:30)
[2018-10-02] MEDS: VANCOMYCIN PER PHARMACY MC PRN (15:33)
[2018-10-02 19:00] VITALS: BP 168/87
[2018-10-02] MEDS ORDERED: AMINO ACID IV SCH ×11 (22:00)
[2018-10-02] MEDS ORDERED: TOTAL PARENTERAL NUTRITION IV SCH ×11 (22:00)
[2018-10-02] MEDS ORDERED: [UNRECOGNIZED DRUG - OTHER] IV SCH ×11 (22:00)
[2018-10-02] MEDS ORDERED: DEXTROSE 70% IV SCH ×11 (22:00)
[2018-10-02] MEDS: HALOPERIDOL 5 MG TABLET. PO SCH (22:20)
[2018-10-02 22:24] VITALS: BP 154/80
[2018-10-02] MEDS: FAMOTIDINE 20 MG TABLET. PO SCH (22:25)
[2018-10-03 02:33] VITALS: BP 129/57
[2018-10-03] MEDS: MEROPENEM 500 MG in IV NORMAL SALINE 50ML 50 ML IV SCH (06:00)
[2018-10-03] MEDS: INSULIN LISPRO 300 UNITS/3 ML INSULN.PEN. SQ SCH ×4 (06:00→18:00)
[2018-10-03 06:20] LABS: HEMATOCRIT 30.2 % (36.0-47.0); HEMOGLOBIN 9.7 g/dL (12.0-15.5); RED BLOOD COUNT 3.29 x10^6/uL (3.50-5.40); RED CELL DISTRIBUTION WIDTH 16.7 % (11.5-14.5); WHITE BLOOD COUNT 15.9 x10^3/uL (4.0-11.0)
[2018-10-03 06:56] LABS: CALCIUM 8.8 mg/dL (8.5-10.1); CREATININE 0.8 mg/dL (0.6-1.0); GFR 72.2; MAGNESIUM 1.9 mg/dL (1.8-2.4); PHOSPHORUS 4.4 mg/dL (2.6-4.7); POTASSIUM 5.5 mmol/L (3.5-5.1)
[2018-10-03 07:16] VITALS: BP 136/62
[2018-10-03] MEDS: IPRATRPIUM/ALBUTEROL 0.5/2.5MG 3 ML NEBU. NEB SCH ×4 (07:18→21:07)
--- NOTE | 2018-10-03 09:12 | PDOC ---
Objective: Objective: Per staff - had a smear of stool, has been sleeping, still not eating much ( breakfast hasn't arrived yet). Vital Signs: Vital Signs Date Time Temp Pulse Resp B/P (MAP) Pulse Ox O2 Delivery O2 Flow Rate FiO2 10/03/18 07:20 Room Air 10/03/18 07:16 99.1 101 20 136/62 (86) 95 99.1 Labs: Laboratory Tests Test 10/02/18 12:59 10/02/18 17:48 10/03/18 00:49 10/03/18 05:47 Glucose (Fingerstick) 137 mg/dL 167 mg/dL 132 mg/dL 103 mg/dL Test 10/03/18 06:12 White Blood Count 15.9 x10^3/uL Red Blood Count 3.29 x10^6/uL Hemoglobin 9.7 g/dL Hematocrit 30.2 % Mean Corpuscular Volume 92 fL Mean Corpuscular Hemoglobin 30 pg Mean Corpuscular Hemoglobin Concent 32 g/dL Red Cell Distribution Width 16.7 % Platelet Count 292 x10^3/uL Sodium Level 139 mmol/L Potassium Level 5.5 mmol/L Chloride Level 107 mmol/L Carbon Dioxide Level 19 mmol/L Anion Gap 13 Blood Urea Nitrogen 18 mg/dL Creatinine 0.8 mg/dL Estimated GFR (Cockcroft-Gault) 72.2 Glucose Level 109 mg/dL Calcium Level 8.8 mg/dL Phosphorus Level 4.4 mg/dL Magnesium Level 1.9 mg/dL PE: GEN: NAD NEURO/PSYCH: sleeping, not awakened A/P: Encephalopathy Leukocytosis, bacteremia - Brevundimonas diminuta Anemia - improved S/p gastric bypass -- Continue support. ZHOU BLANC Oct 03, 2018 09:12
[2018-10-03] MEDS: LACTOBACILLUS RHAMNOSUS GG 1 CAPSULE. PO SCH ×2 (10:13→20:46)
--- NOTE | 2018-10-03 10:13 | PDOC ---
PULMONARY PROGRESS NOTES Subjective PT OFF 02 EXTUBATED 09/27 LESS CONFUSED TODAY EATING Vitals Vital Signs Date Time Temp Pulse Resp B/P (MAP) Pulse Ox O2 Delivery O2 Flow Rate FiO2 10/03/18 07:20 Room Air 10/03/18 07:16 99.1 101 20 136/62 (86) 95 99.1 General: Alert Lungs: Clear, Other (decrease bs) Cardiovascular: S1, S2 Abdomen: Soft, Non-tender Neuro Exam: Alert Extremities: Other (1+edema) Labs Laboratory Tests Test 10/01/18 12:15 10/01/18 18:16 10/02/18 01:07 10/02/18 06:00 Glucose (Fingerstick) 108 mg/dL (70-99) 125 mg/dL (70-99) 120 mg/dL (70-99) Magnesium Level 1.5 mg/dL (1.8-2.4) Triglycerides Level 136 mg/dL (0-150) Test 10/02/18 06:37 10/02/18 12:59 10/02/18 17:48 10/03/18 00:49 Glucose (Fingerstick) 117 mg/dL (70-99) 137 mg/dL (70-99) 167 mg/dL (70-99) 132 mg/dL (70-99) Test 10/03/18 05:47 10/03/18 06:12 Glucose (Fingerstick) 103 mg/dL (70-99) White Blood Count 15.9 x10^3/uL (4.0-11.0) Red Blood Count 3.29 x10^6/uL (3.50-5.40) Hemoglobin 9.7 g/dL (12.0-15.5) Hematocrit 30.2 % (36.0-47.0) Mean Corpuscular Volume 92 fL (79-100) Mean Corpuscular Hemoglobin 30 pg (25-35) Mean Corpuscular Hemoglobin Concent 32 g/dL (31-37) Red Cell Distribution Width 16.7 % (11.5-14.5) Platelet Count 292 x10^3/uL (140-400) Sodium Level 139 mmol/L (136-145) Potassium Level 5.5 mmol/L (3.5-5.1) Chloride Level 107 mmol/L (98-107) Carbon Dioxide Level 19 mmol/L (21-32) Anion Gap 13 (6-14) Blood Urea Nitrogen 18 mg/dL (7-20) Creatinine 0.8 mg/dL (0.6-1.0) Estimated GFR (Cockcroft-Gault) 72.2 Glucose Level 109 mg/dL (70-99) Calcium Level 8.8 mg/dL (8.5-10.1) Phosphorus Level 4.4 mg/dL (2.6-4.7) Magnesium Level 1.9 mg/dL (1.8-2.4) Laboratory Tests Test 10/02/18 12:59 10/02/18 17:48 10/03/18 00:49 10/03/18 05:47 Glucose (Fingerstick) 137 mg/dL (70-99) 167 mg/dL (70-99) 132 mg/dL (70-99) 103 mg/dL (70-99) Test 10/03/18 06:12 White Blood Count 15.9 x10^3/uL (4.0-11.0) Red Blood Count 3.29 x10^6/uL (3.50-5.40) Hemoglobin 9.7 g/dL (12.0-15.5) Hematocrit 30.2 % (36.0-47.0) Mean Corpuscular Volume 92 fL (79-100) Mean Corpuscular Hemoglobin 30 pg (25-35) Mean Corpuscular Hemoglobin Concent 32 g/dL (31-37) Red Cell Distribution Width 16.7 % (11.5-14.5) Platelet Count 292 x10^3/uL (140-400) Sodium Level 139 mmol/L (136-145) Potassium Level 5.5 mmol/L (3.5-5.1) Chloride Level 107 mmol/L (98-107) Carbon Dioxide Level 19 mmol/L (21-32) Anion Gap 13 (6-14) Blood Urea Nitrogen 18 mg/dL (7-20) Creatinine 0.8 mg/dL (0.6-1.0) Estimated GFR (Cockcroft-Gault) 72.2 Glucose Level 109 mg/dL (70-99) Calcium Level 8.8 mg/dL (8.5-10.1) Phosphorus Level 4.4 mg/dL (2.6-4.7) Magnesium Level 1.9 mg/dL (1.8-2.4) Medications Active Scripts Medications Dose Route/Sig Max Daily Dose Days Date Category [iron] 325 Mg PO 09/23/18 Reported Haloperidol 10 Mg Tablet 10 Mg PO QHS 09/23/18 Reported Ventolin Hfa Inhaler (Albuterol Sulfate) 18 Gm Hfa.aer.ad 2 Puff INH Q4HRS PRN 07/04/18 Reported Pristiq Er (Desvenlafaxine Succinate) 50 Mg Tab.er.24h 1 Tab PO DAILY 07/01/18 Reported Amitriptyline Hcl 25 Mg Tablet 1 Tab PO QHS 07/01/18 Reported Diazepam 5 Mg Tablet 5 Mg PO TID 07/01/18 Reported Gabapentin (Gabapentin) 300 Mg Capsule 300 Mg PO TID 07/01/18 Reported Impression . 1. Acute respiratory failure, multifactorial in etiology including shock, acute kidney injury 2. SEPTIC SHOCK 3. Abnormal CT of the chest with left lower lobe dense atelectasis/ PNEUMONIA 4. Acute kidney injury. 5. Electrolyte abnormality. 6. Gastrointestinal bleeding. 7. Hypotension. 8. Severe metabolic acidosis secondary to shock and acute kidney injury 9. FEVER PER ID BLOOD CULTURE LC Final Final report BLD CULT RESULT 1 Final Comment Brevundimonas diminuta ANTIMICROBIAL SUSCEPTIBILITY Final Comment S = Susceptible; I = Intermediate; R = Resistant P = Positive; N = Negative MICS are expressed in micrograms per mL Antibiotic RSLT#1 RSLT#2 RSLT#3 RSLT#4 Amikacin S<=4 Cefepime S<=2 Cefotaxime S<=2 Ceftazidime S<=2 Ceftriaxone S<=1 Ciprofloxacin S<=1 Gentamicin S<=1 Imipenem S<=1 Levofloxacin S<=1 Meropenem S<=1 Piperacillin/Tazobactam S<=8 Tetracycline S<=4 Tobramycin S<=1 Trimethoprim/Sulfa S<=2/38 Performed at: DA - [facility] [address], [place], [place] [id number] [employer] Teacher: SIMON Mehta MD, Phone: [phone] Plan . D/W DR COOK POSSIBLE TRANSFER IN AM WILL CONTINUE THE SAME FOR NOW ON ORAL DIET PT EATING CONTINUE THE SAME GNR B.C FINAL NOTED PER ID EXTUBATED 09/27 OFF 02 WILL MONITOR RESP STATUS IS COMPENSATED FOLLOW NEPHRO DVT GI PROPHYLAXIS TITO ZAPATA MD Oct 03, 2018 10:12
--- NOTE | 2018-10-03 10:56 | PDOC ---
Infectious Disease Note Subjective: Subjective Pt is agitated today does not verbalize much on 1:1 d/w RN had loose bm last night and small one today ROS: ROS Negative except for above. Vital Signs: Vital Signs Vital Signs Date Time Temp Pulse Resp B/P (MAP) Pulse Ox O2 Delivery O2 Flow Rate FiO2 10/03/18 07:20 Room Air 10/03/18 07:16 99.1 101 20 136/62 (86) 95 99.1 Physical Exam: PHYSICAL EXAM GENERAL: Alert, awake female, sitting, propped up in bed, in no acute distress. HEENT: Normocephalic and atraumatic. Poor dentition. No thrush. NECK: Supple, no lymphadenopathy. HEART: S1, S2. No murmurs. ABDOMEN: Soft, bowel sounds present, nontender, nondistended. Numerous surgical scars well healed. LUNGS: Decreased breath sounds at the bases, otherwise clear. EXTREMITIES: No edema, no cyanosis. GENITOURINARY: Mckin[place] in place. NEUROLOGIC: Alert, awake and confused. Moves all 4 extremities. DERM: Warm, dry. No generalized skin rash. Medications: Inpatient Meds: Current Medications Medications (Trade) Dose Ordered Sig/Ashli Start Time Stop Time Status Last Admin Dose Admin Acetaminophen (Tylenol) 650 mg PRN Q6HRS PRN 09/30/18 14:00 10/01/18 15:22 650 MG Albuterol/ Ipratropium (Duoneb) 3 ml RTQID 09/23/18 08:00 10/03/18 07:18 3 ML Amitriptyline HCl (Elavil) 25 mg QHS 09/26/18 21:00 UNV Ceftriaxone Sodium (Rocephin) 1 gm 1X ONCE 09/22/18 17:30 09/22/18 17:30 DC Chlorhexidine Gluconate (Peridex) 15 ml BID 09/24/18 09:00 09/25/18 09:30 DC 09/24/18 21:41 15 ML Dextrose (Dextrose 50%-Water Syringe) 12.5 gm PRN Q15MIN PRN 09/25/18 09:30 Epinephrine HCl 4 mg/Sodium Chloride 254 ml @ 26.44 mls/ hr CONT PRN 09/23/18 02:15 09/27/18 15:53 DC Etomidate (Amidate) 20 mg STK-MED ONCE 09/22/18 20:36 09/22/18 20:37 DC Famotidine (Pepcid Vial) 20 mg QHS 09/25/18 21:00 10/01/18 11:50 DC 09/30/18 20:55 20 MG Famotidine (Pepcid) 20 mg QHS 10/01/18 21:00 10/02/18 22:25 20 MG Fentanyl Citrate 30 ml @ 0 mls/hr CONT PRN 09/23/18 22:30 09/27/18 15:53 DC 09/27/18 07:03 2.5 MLS/HR Fentanyl Citrate (Fentanyl 2ml Vial) 50 mcg PRN Q1HR PRN 09/22/18 23:30 10/02/18 07:55 DC 09/29/18 21:48 50 MCG Haloperidol (Haldol) 5 mg QHS 09/28/18 21:00 10/02/18 22:20 5 MG Haloperidol Lactate (Haldol Inj) 5 mg 1X ONCE 09/29/18 15:15 09/29/18 15:16 DC 09/29/18 15:15 5 MG Heparin Sodium (Porcine) (Heparin Sodium) 10,000 unit STK-MED ONCE 09/22/18 19:17 09/22/18 19:18 DC Info (Tpn Per Pharmacy) 1 each PRN DAILY PRN 09/24/18 08:15 10/02/18 14:30 1 EACH Insulin Human Lispro (HumaLOG) 0-5 UNITS Q6HRS 09/25/18 12:00 10/02/18 17:56 2 UNITS Lactobacillus Rhamnosus (Culturelle) 1 cap BID 10/01/18 21:00 10/03/18 10:13 1 CAP Lidocaine/Sodium Bicarbonate (Buffered Lidocaine 1%) 4 ml 1X ONCE 09/22/18 19:15 09/22/18 19:18 DC 09/22/18 19:15 4 ML Linezolid/Dextrose 300 ml @ 300 mls/hr Q12HR 09/25/18 13:00 09/28/18 17:06 DC 09/28/18 08:52 300 MLS/HR Lorazepam (Ativan) 0.5 mg PRN Q6HRS PRN 09/27/18 21:15 09/29/18 00:20 0.5 MG Magnesium Sulfate/ Dextrose 100 ml @ 100 mls/hr 1X ONCE 10/02/18 15:30 10/02/18 16:29 DC 10/02/18 17:18 100 MLS/HR Meropenem 500 mg/ Sodium Chloride 50 ml @ 100 mls/hr Q8HRS 10/01/18 14:00 10/03/18 06:00 100 MLS/HR Micafungin Sodium 100 mg/Dextrose 100 ml @ 100 mls/hr Q24H 10/01/18 12:00 10/02/18 12:51 100 MLS/HR Midazolam HCl 100 ml @ 5 mls/hr CONT PRN 09/22/18 19:00 09/29/18 11:55 DC 09/25/18 19:41 5 MLS/HR Non-Formulary Medication (Desvenlafaxine Succinate (Pristiq Er)) 1 tab DAILY 09/27/18 09:00 UNV Norepinephrine Bitartrate 250 ml @ 1.875 mls/ hr CONT PRN 09/22/18 23:30 09/27/18 15:53 DC 09/24/18 12:54 3.75 MLS/HR Ondansetron HCl (Zofran) 4 mg PRN Q6HRS PRN 09/29/18 11:30 Pantoprazole Sodium (PROTONIX VIAL for IV PUSH) 40 mg DAILYAC 09/25/18 13:00 09/25/18 13:00 DC Pantoprazole Sodium 80 mg/ Sodium Chloride 100 ml @ 10 mls/hr Q10H 09/22/18 17:15 09/24/18 15:43 DC 09/24/18 05:46 10 MLS/HR Piperacillin Sod/ Tazobactam Sod (Zosyn Per Pharmacy) 1 each PRN DAILY PRN 09/22/18 17:30 Piperacillin Sod/ Tazobactam Sod 3.375 gm/Sodium Chloride 50 ml @ 100 mls/hr Q6HRS 09/23/18 00:00 10/01/18 11:20 DC 10/01/18 05:20 100 MLS/HR Potassium Chloride 15 meq/ Magnesium Sulfate 2.5 meq/Calcium Chloride 5 meq/ Bicarbonate Dialysis Soln w/ out KCl 5,011.6871 ml @ 1,000 mls/hr Q5H1M 09/24/18 04:30 09/24/18 17:00 DC 09/24/18 04:34 1,000 MLS/HR Potassium Chloride 15 meq/ Magnesium Sulfate 5 meq/Calcium Chloride 5 meq/ Bicarbonate Dialysis Soln w/ out KCl 5,012.3029 ml @ 1,000 mls/hr Q5H1M 09/23/18 20:30 09/24/18 04:06 DC 09/23/18 23:50 1,000 MLS/HR Potassium Chloride 35 meq/ Magnesium Sulfate 2.5 meq/Calcium Chloride 5 meq/ Bicarbonate Dialysis Soln w/ out KCl 5,021.6871 ml @ 1,000 mls/hr Q5H2M 09/24/18 04:30 09/24/18 17:00 DC 09/24/18 04:34 1,000 MLS/HR Potassium Chloride 35 meq/ Magnesium Sulfate 5 meq/Calcium Chloride 5 meq/ Bicarbonate Dialysis Soln w/ out KCl 5,022.3029 ml @ 1,000 mls/hr Q5H2M 09/23/18 20:30 09/24/18 04:06 DC 09/23/18 23:49 1,000 MLS/HR Potassium Chloride/Water 50 ml @ 50 mls/hr Q1H 09/25/18 09:00 09/25/18 10:59 DC 09/25/18 10:39 50 MLS/HR Rocuronium [place] (Zemuron) 50 mg STK-MED ONCE 09/22/18 20:36 09/22/18 20:37 DC Sodium Bicarbonate 150 meq/Sterile Water 1,150 ml @ 300 mls/hr Q3H50M 09/22/18 22:00 09/24/18 15:44 DC 09/24/18 05:45 300 MLS/HR Sodium Bicarbonate 40 meq/Potassium Chloride 15 meq/ Magnesium Sulfate 5 meq/Calcium Chloride 17.5 meq/ Bicarbonate Dialysis Soln w/ out KCl 5,061.2315 ml @ 1,000 mls/hr Q5H4M 09/23/18 10:00 09/23/18 10:33 DC 09/23/18 10:12 1,000 MLS/HR Sodium Bicarbonate 40 meq/Potassium Chloride 15 meq/ Magnesium Sulfate 5 meq/Calcium Chloride 2.5 meq/ Bicarbonate Dialysis Soln w/ out KCl 5,050.5172 ml @ 1,000 mls/hr Q5H4M 09/22/18 22:00 09/23/18 08:43 DC 09/23/18 05:02 1,000 MLS/HR Sodium Bicarbonate 40 meq/Potassium Chloride 15 meq/ Magnesium Sulfate 5 meq/Calcium Chloride 5 meq/ Bicarbonate Dialysis Soln w/ out KCl 5,052.3029 ml @ 1,000 mls/hr Q5H4M 09/23/18 10:45 09/23/18 19:28 DC 09/23/18 15:39 1,000 MLS/HR Sodium Acetate 45 meq/Potassium Acetate 25 meq/ Potassium Phosphate 13.6 mmol/Magnesium Sulfate 10 meq/ Calcium Gluconate 10 meq/ Multivitamins 10 ml/Chromium/ Copper/Manganese/ Seleni/Zn 1 ml/ Total Parenteral Nutrition/Amino Acids/Dextrose/ Fat Emulsion Intravenous 1,422 ml @ 59.25 mls/ hr TPN CONT 09/24/18 22:00 09/25/18 21:59 DC 09/24/18 22:50 59.25 MLS/HR Sodium Bicarbonate (Sodium Bicarb Adult 8.4% Syr) 50 meq 1X ONCE 09/22/18 17:45 09/22/18 17:46 DC 09/22/18 18:03 50 MEQ Sodium Chloride 30 meq/Sodium Acetate 10 meq/ Potassium Acetate 35 meq/Potassium Phosphate 17 mmol/ Magnesium Sulfate 5 meq/Calcium Gluconate 10 meq/ Multivitamins 10 ml/Chromium/ Copper/Manganese/ Seleni/Zn 1 ml/ Total Parenteral Nutrition/Amino Acids/Dextrose/ Fat Emulsion Intravenous 1,512 ml @ 63 mls/hr TPN CONT 09/30/18 22:00 10/01/18 21:59 DC 09/30/18 20:56 63 MLS/HR Sodium Chloride 30 meq/Sodium Acetate 10 meq/ Potassium Acetate 35 meq/Potassium Phosphate 17 mmol/ Magnesium Sulfate 10 meq/Calcium Gluconate 10 meq/ Multivitamins 10 ml/Chromium/ Copper/Manganese/ Seleni/Zn 1 ml/ Total Parenteral Nutrition/Amino Acids/Dextrose/ Fat Emulsion Intravenous 1,512 ml @ 63 mls/hr TPN CONT 10/02/18 22:00 10/03/18 21:59 10/02/18 22:21 63 MLS/HR Sodium Chloride 40 meq/Potassium Acetate 35 meq/ Potassium Phosphate 17 mmol/ Magnesium Sulfate 5 meq/Calcium Gluconate 10 meq/ Multivitamins 10 ml/Chromium/ Copper/Manganese/ Seleni/Zn 1 ml/ Total Parenteral Nutrition/Amino Acids/Dextrose/ Fat Emulsion Intravenous 1,512 ml @ 63 mls/hr TPN CONT 09/29/18 22:00 09/30/18 21:59 DC 09/29/18 21:18 63 MLS/HR Sodium Chloride 45 meq/Potassium Acetate 35 meq/ Potassium Phosphate 17 mmol/ Magnesium Sulfate 5 meq/Calcium Gluconate 10 meq/ Multivitamins 10 ml/Chromium/ Copper/Manganese/ Seleni/Zn 1 ml/ Total Parenteral Nutrition/Amino Acids/Dextrose/ Fat Emulsion Intravenous 1,512 ml @ 63 mls/hr TPN CONT 09/28/18 22:00 09/29/18 21:59 DC 09/28/18 23:00 63 MLS/HR Sodium Chloride 90 meq/Potassium Chloride 50 meq/ Potassium Phosphate 13.6 mmol/Magnesium Sulfate 10 meq/ Calcium Gluconate 10 meq/ Multivitamins 10 ml/Chromium/ Copper/Manganese/ Seleni/Zn 1 ml/ Total Parenteral Nutrition/Amino Acids/Dextrose/ Fat Emulsion Intravenous 87.0013 ml @ 3.625 mls/hr TPN CONT 09/24/18 22:00 09/25/18 21:59 UNV Sodium Phosphate 10 mmol/Dextrose 253.3333 ml @ 63.333 m... 1X ONCE 09/25/18 16:00 09/25/18 19:59 DC 09/25/18 16:16 63.333 MLS/HR Vancomycin HCl (Vanco Per Pharmacy) 1 each PRN DAILY PRN 10/01/18 11:30 10/02/18 15:33 1 EACH Vancomycin HCl (Vancomycin Trough Level) 1 each 1X ONCE 10/03/18 14:30 10/03/18 14:31 Vancomycin HCl 1.75 gm/Sodium Chloride 500 ml @ 250 mls/hr 1X ONCE 10/01/18 12:00 10/01/18 13:59 DC 10/01/18 15:01 250 MLS/HR Vancomycin HCl 1 gm/Sodium Chloride 250 ml @ 250 mls/hr Q24H 10/02/18 15:00 10/02/18 15:46 250 MLS/HR Vasopressin 40 unit/Dextrose 102 ml @ 6 mls/hr CONT PRN 09/22/18 18:45 09/27/18 15:12 DC 09/24/18 12:53 6 MLS/HR Labs: Lab Laboratory Tests Test 10/02/18 12:59 10/02/18 17:48 10/03/18 00:49 10/03/18 05:47 Glucose (Fingerstick) 137 mg/dL (70-99) 167 mg/dL (70-99) 132 mg/dL (70-99) 103 mg/dL (70-99) Test 10/03/18 06:12 White Blood Count 15.9 x10^3/uL (4.0-11.0) Red Blood Count 3.29 x10^6/uL (3.50-5.40) Hemoglobin 9.7 g/dL (12.0-15.5) Hematocrit 30.2 % (36.0-47.0) Mean Corpuscular Volume 92 fL (79-100) Mean Corpuscular Hemoglobin 30 pg (25-35) Mean Corpuscular Hemoglobin Concent 32 g/dL (31-37) Red Cell Distribution Width 16.7 % (11.5-14.5) Platelet Count 292 x10^3/uL (140-400) Sodium Level 139 mmol/L (136-145) Potassium Level 5.5 mmol/L (3.5-5.1) Chloride Level 107 mmol/L (98-107) Carbon Dioxide Level 19 mmol/L (21-32) Anion Gap 13 (6-14) Blood Urea Nitrogen 18 mg/dL (7-20) Creatinine 0.8 mg/dL (0.6-1.0) Estimated GFR (Cockcroft-Gault) 72.2 Glucose Level 109 mg/dL (70-99) Calcium Level 8.8 mg/dL (8.5-10.1) Phosphorus Level 4.4 mg/dL (2.6-4.7) Magnesium Level 1.9 mg/dL (1.8-2.4) Objective: Assessment: Febrile illness on zosyn 09/29/2018,pattern improving septic shock POA GNR bacteremia ? source unclear, final id and janina still pending MARII,Metabolic acidosis resolved GI Bleed anemia thrombocytopenia Leucocytosis Plan: Plan of Care micafungin,merrem and vanco check c diff if has diarrhea f/u c/s and labs monitor renal functions closely Maintain aspiration precautions D/W LUKE DELCID MD Oct 03, 2018 10:56
[2018-10-03 11:12] VITALS: BP 145/71
--- NOTE | 2018-10-03 11:17 | NUR ---
SW following. Discussed with RN. Pt has been accepted at [facility]. [facility] advised they can take pt tomorrow (10/04/18). Updates faxed, RN notified. SW will continue to follow.
--- NOTE | 2018-10-03 12:24 | PDOC ---
PROGRESS NOTES Subjective Subjective Patient confused and mildly agitated, sitting up in chair. Objective Objective Vital Signs Date Time Temp Pulse Resp B/P (MAP) Pulse Ox O2 Delivery O2 Flow Rate FiO2 10/03/18 11:12 98.7 103 20 145/71 (95) 96 Room Air 98.7 09/28/18 08:51 Intake and Output 10/03/18 06:59 Intake Total 120 ml Output Total 1303 ml Balance -1183 ml Intake Oral 120 ml Output Urine Total 1253 ml Stool Total 50 ml # Voids 4 # Bowel Movements 1 Physical Exam Abdomen: Normal bowel sounds, Soft, No tenderness Heart: Regular rate Extremities: No edema General: Alert, No acute distress Lungs: Clear to auscultation Plan Plan of Care 1. Fever - improving. Continue tx per ID, one blood culture from admission positive but GNR is sensitive to the Zosyn she was on. Repeat cultures negative to date. 2. schizophrenia with metabolic encephalopathy - getting more agitated and uncooperative. Will try scheduled Ativan (IV available if patient refusing po) and increased Haldol tonight. 3. dysphagia - continue TPN. Patient taking very little po today, unable to cooperate with speech tx. 4. debility - continue therapies as able. Hope to transfer to [facility] tomorrow. Comment Review of Relevant I have reviewed the following items michelle (where applicable) has been applied. Labs Laboratory Tests Test 10/01/18 18:16 10/02/18 01:07 10/02/18 06:00 10/02/18 06:37 Glucose (Fingerstick) 125 mg/dL (70-99) 120 mg/dL (70-99) 117 mg/dL (70-99) Magnesium Level 1.5 mg/dL (1.8-2.4) Triglycerides Level 136 mg/dL (0-150) Test 10/02/18 12:59 10/02/18 17:48 10/03/18 00:49 10/03/18 05:47 Glucose (Fingerstick) 137 mg/dL (70-99) 167 mg/dL (70-99) 132 mg/dL (70-99) 103 mg/dL (70-99) Test 10/03/18 06:12 10/03/18 12:03 White Blood Count 15.9 x10^3/uL (4.0-11.0) Red Blood Count 3.29 x10^6/uL (3.50-5.40) Hemoglobin 9.7 g/dL (12.0-15.5) Hematocrit 30.2 % (36.0-47.0) Mean Corpuscular Volume 92 fL (79-100) Mean Corpuscular Hemoglobin 30 pg (25-35) Mean Corpuscular Hemoglobin Concent 32 g/dL (31-37) Red Cell Distribution Width 16.7 % (11.5-14.5) Platelet Count 292 x10^3/uL (140-400) Sodium Level 139 mmol/L (136-145) Potassium Level 5.5 mmol/L (3.5-5.1) Chloride Level 107 mmol/L (98-107) Carbon Dioxide Level 19 mmol/L (21-32) Anion Gap 13 (6-14) Blood Urea Nitrogen 18 mg/dL (7-20) Creatinine 0.8 mg/dL (0.6-1.0) Estimated GFR (Cockcroft-Gault) 72.2 Glucose Level 109 mg/dL (70-99) Calcium Level 8.8 mg/dL (8.5-10.1) Phosphorus Level 4.4 mg/dL (2.6-4.7) Magnesium Level 1.9 mg/dL (1.8-2.4) Glucose (Fingerstick) 138 mg/dL (70-99) Laboratory Tests Test 10/02/18 12:59 10/02/18 17:48 10/03/18 00:49 10/03/18 05:47 Glucose (Fingerstick) 137 mg/dL (70-99) 167 mg/dL (70-99) 132 mg/dL (70-99) 103 mg/dL (70-99) Test 10/03/18 06:12 10/03/18 12:03 White Blood Count 15.9 x10^3/uL (4.0-11.0) Red Blood Count 3.29 x10^6/uL (3.50-5.40) Hemoglobin 9.7 g/dL (12.0-15.5) Hematocrit 30.2 % (36.0-47.0) Mean Corpuscular Volume 92 fL (79-100) Mean Corpuscular Hemoglobin 30 pg (25-35) Mean Corpuscular Hemoglobin Concent 32 g/dL (31-37) Red Cell Distribution Width 16.7 % (11.5-14.5) Platelet Count 292 x10^3/uL (140-400) Sodium Level 139 mmol/L (136-145) Potassium Level 5.5 mmol/L (3.5-5.1) Chloride Level 107 mmol/L (98-107) Carbon Dioxide Level 19 mmol/L (21-32) Anion Gap 13 (6-14) Blood Urea Nitrogen 18 mg/dL (7-20) Creatinine 0.8 mg/dL (0.6-1.0) Estimated GFR (Cockcroft-Gault) 72.2 Glucose Level 109 mg/dL (70-99) Calcium Level 8.8 mg/dL (8.5-10.1) Phosphorus Level 4.4 mg/dL (2.6-4.7) Magnesium Level 1.9 mg/dL (1.8-2.4) Glucose (Fingerstick) 138 mg/dL (70-99) Microbiology 10/01/18 Blood Culture - Preliminary, Resulted NO GROWTH AFTER 1 DAY 09/25/18 - Final, Complete 09/25/18 - Final, Complete 09/25/18 - Final, Complete 09/25/18 Gram Stain Evaluation - Final, Complete 09/25/18 Sputum Culture - Final, Complete 09/25/18 Sputum Result 1 - Final, Complete 09/25/18 Sputum Result 2 - Final, Complete 10/01/18 Urine Culture - Final, Complete 10/01/18 Urine Culture Result 1 (MELODY) - Final, Complete Medications Current Medications Sodium Chloride 1,000 ml @ 1,000 mls/hr 1X ONCE IV Last administered on at 17:18; Start 09/22/18 at 17:15; Stop 09/22/18 at 18:14; Status DC Pantoprazole Sodium 80 mg/ Sodium Chloride 100 ml @ 10 mls/hr Q10H IV Last administered on 09/24/18at 05:46; Start 09/22/18 at 17:15; Stop 09/24/18 at 15:43 ; Status DC Pantoprazole Sodium (PROTONIX VIAL for IV PUSH) 80 mg 1X ONCE IVP Last administered on 09/22/18at 17:39; Start 09/22/18 at 17:15; Stop 09/22/18 at 17:17 ; Status DC Ceftriaxone Sodium (Rocephin) 1 gm 1X ONCE IVP ; Start 09/22/18 at 17:30; Stop 09/22/18 at 17:30; Status DC Sodium Chloride 1,000 ml @ 1,000 mls/hr 1X ONCE IV Last administered on at 17:27; Start 09/22/18 at 17:30; Stop 09/22/18 at 18:29; Status DC Vancomycin HCl (Vanco Per Pharmacy) 1 each PRN DAILY PRN MC SEE COMMENTS Last administered on 09/24/18at 21:37; Start 09/22/18 at 17:30; Stop 09/25/18 at 12:02 ; Status DC Piperacillin Sod/ Tazobactam Sod (Zosyn Per Pharmacy) 1 each PRN DAILY PRN MC SEE COMMENTS; Start 09/22/18 at 17:30; Stop 10/03/18 at 11:06; Status DC Piperacillin Sod/ Tazobactam Sod 3.375 gm/Sodium Chloride 50 ml @ 100 mls/hr 1X ONCE IV Last administered on 09/22/18at 18:04; Start 09/22/18 at 17:30; Stop 09/22/18 at 17:59; Status DC Vancomycin HCl 1.75 gm/Sodium Chloride 500 ml @ 250 mls/hr 1X ONCE IV Last administered on 09/22/18at 23:28; Start 09/22/18 at 17:30; Stop 09/22/18 at 19:29 ; Status DC Sodium Bicarbonate (Sodium Bicarb Adult 8.4% Syr) 50 meq 1X ONCE IV Last administered on 09/22/18at 18:03; Start 09/22/18 at 17:45; Stop 09/22/18 at 17:46 ; Status DC Norepinephrine Bitartrate 250 ml @ 0 mls/hr 1X ONCE IV Last administered on at 17:51; Start 09/22/18 at 17:45; Stop 09/22/18 at 17:46; Status DC Sodium Bicarbonate 150 meq/Sterile Water 1,150 ml @ 125 mls/hr 1X ONCE IV Last administered on 09/22/18at 18:30; Start 09/22/18 at 18:30; Stop 09/23/18 at 03:41; Status DC Piperacillin Sod/ Tazobactam Sod 3.375 gm/Sodium Chloride 50 ml @ 100 mls/hr Q6HRS IV Last administered on 10/01/18at 05:20; Start 09/23/18 at 00:00; Stop 10/01/18 at 11:20; Status DC Vasopressin 40 unit/Dextrose 102 ml @ 6 mls/hr CONT PRN IV SEE I/O RECORD Last administered on 09/24/18at 12:53; Start 09/22/18 at 18:45; Stop 09/27/18 at 15:12 ; Status DC Fentanyl Citrate (Fentanyl 2ml Vial) 50 mcg 1X ONCE IV ; Start 09/22/18 at 19: 00; Stop 09/22/18 at 19:01; Status DC Midazolam HCl 100 ml @ 5 mls/hr CONT PRN IV SEE I/O RECORD Last administered on 09/25/18at 19:41; Start 09/22/18 at 19:00; Stop 09/29/18 at 11:55; Status DC Lidocaine/Sodium Bicarbonate (Buffered Lidocaine 1%) 4 ml 1X ONCE INJ Last administered on 09/22/18at 19:15; Start 09/22/18 at 19:15; Stop 09/22/18 at 19:18 ; Status DC Heparin Sodium (Porcine) (Heparin Sodium) 2,500 unit 1X ONCE INT CAT Last administered on 09/22/18at 19:15; Start 09/22/18 at 19:15; Stop 09/22/18 at 19:18 ; Status DC Heparin Sodium (Porcine) (Heparin Sodium) 10,000 unit STK-MED ONCE .ROUTE ; Start 09/22/18 at 19:17; Stop 09/22/18 at 19:18; Status DC Sodium Bicarbonate 40 meq/Potassium Chloride 15 meq/ Magnesium Sulfate 5 meq/ Calcium Chloride 2.5 meq/ Bicarbonate Dialysis Soln w/ out KCl 5,050.5172 ml @ 1 ,000 mls/hr Q5H4M IV Last administered on 09/23/18at 05:02; Start 09/22/18 at 22 :00; Stop 09/23/18 at 08:43; Status DC Sodium Bicarbonate 40 meq/Potassium Chloride 15 meq/ Magnesium Sulfate 5 meq/ Calcium Chloride 2.5 meq/ Bicarbonate Dialysis Soln w/ out KCl 5,050.5172 ml @ 1 ,000 mls/hr Q5H4M IV Last administered on 09/23/18at 05:02; Start 09/22/18 at 22 :00; Stop 09/23/18 at 08:43; Status DC Sodium Bicarbonate 150 meq/Sterile Water 1,150 ml @ 300 mls/hr Q3H50M IV Last administered on 09/24/18at 05:45; Start 09/22/18 at 22:00; Stop 09/24/18 at 15:44 ; Status DC Etomidate (Amidate) 20 mg STK-MED ONCE IV ; Start 09/22/18 at 20:36; Stop at 20:37; Status DC Rocuronium [place] (Zemuron) 50 mg STK-MED ONCE .ROUTE ; Start 09/22/18 at 20:36 ; Stop 09/22/18 at 20:37; Status DC Norepinephrine Bitartrate 250 ml @ 1.875 mls/ hr CONT PRN IV SEE I/O RECORD Last administered on 09/24/18at 12:54; Start 09/22/18 at 23:30; Stop 09/27/18 at 15:53; Status DC Fentanyl Citrate (Fentanyl 2ml Vial) 50 mcg PRN Q1HR PRN IV PAIN Last administered on 09/29/18at 21:48; Start 09/22/18 at 23:30; Stop 10/02/18 at 07:55; Status DC Epinephrine HCl 4 mg/Sodium Chloride 254 ml @ 26.44 mls/ hr CONT PRN IV SEE I/ O RECORD; Start 09/23/18 at 02:15; Stop 09/27/18 at 15:53; Status DC Albuterol/ Ipratropium (Duoneb) 3 ml RTQID NEB Last administered on 10/03/18at 07 :18; Start 09/23/18 at 08:00 Sodium Bicarbonate 40 meq/Potassium Chloride 15 meq/ Magnesium Sulfate 5 meq/ Calcium Chloride 17.5 meq/ Bicarbonate Dialysis Soln w/ out KCl 5,061.2315 ml @ 1,000 mls/hr Q5H4M IV Last administered on 09/23/18at 10:13; Start 09/23/18 at 10:00; Stop 09/23/18 at 10:32; Status DC Sodium Bicarbonate 40 meq/Potassium Chloride 15 meq/ Magnesium Sulfate 5 meq/ Calcium Chloride 17.5 meq/ Bicarbonate Dialysis Soln w/ out KCl 5,061.2315 ml @ 1,000 mls/hr Q5H4M IV Last administered on 09/23/18at 10:12; Start 09/23/18 at 10:00; Stop 09/23/18 at 10:33; Status DC Sodium Bicarbonate 40 meq/Potassium Chloride 15 meq/ Magnesium Sulfate 5 meq/ Calcium Chloride 5 meq/ Bicarbonate Dialysis Soln w/ out KCl 5,052.3029 ml @ 1, 000 mls/hr Q5H4M IV Last administered on 09/23/18at 15:40; Start 09/23/18 at 11: 00; Stop 09/23/18 at 19:28; Status DC Sodium Bicarbonate 40 meq/Potassium Chloride 15 meq/ Magnesium Sulfate 5 meq/ Calcium Chloride 5 meq/ Bicarbonate Dialysis Soln w/ out KCl 5,052.3029 ml @ 1, 000 mls/hr Q5H4M IV Last administered on 09/23/18at 15:39; Start 09/23/18 at 10: 45; Stop 09/23/18 at 19:28; Status DC Vancomycin HCl 1 gm/Sodium Chloride 250 ml @ 250 mls/hr Q24H IV Last administered on 09/24/18at 21:38; Start 09/23/18 at 21:00; Stop 09/25/18 at 12:02 ; Status DC Vancomycin HCl (Vancomycin Trough Level) 1 each 1X ONCE MC Last administered on 09/24/18at 20:30; Start 09/24/18 at 20:30; Stop 09/24/18 at 20:31; Status DC Potassium Chloride 15 meq/ Magnesium Sulfate 5 meq/Calcium Chloride 5 meq/ Bicarbonate Dialysis Soln w/ out KCl 5,012.3029 ml @ 1,000 mls/hr Q5H1M IV Last administered on 09/23/18at 23:50; Start 09/23/18 at 20:30; Stop 09/24/18 at 04:06; Status DC Potassium Chloride 35 meq/ Magnesium Sulfate 5 meq/Calcium Chloride 5 meq/ Bicarbonate Dialysis Soln w/ out KCl 5,022.3029 ml @ 1,000 mls/hr Q5H2M IV Last administered on 09/23/18at 23:49; Start 09/23/18 at 20:30; Stop 09/24/18 at 04:06; Status DC Fentanyl Citrate 30 ml @ 0 mls/hr CONT PRN IV SEE PROTOCOL Last administered on 09/27/18at 07:03; Start 09/23/18 at 22:30; Stop 09/27/18 at 15:53; Status DC Chlorhexidine Gluconate (Peridex) 15 ml BID MM Last administered on 09/24/18at 21:41; Start 09/24/18 at 09:00; Stop 09/25/18 at 09:30; Status DC Potassium Chloride 15 meq/ Magnesium Sulfate 2.5 meq/Calcium Chloride 5 meq/ Bicarbonate Dialysis Soln w/ out KCl 5,011.6871 ml @ 1,000 mls/hr Q5H1M IV Last administered on 09/24/18at 04:34; Start 09/24/18 at 04:30; Stop 09/24/18 at 17:00; Status DC Potassium Chloride 35 meq/ Magnesium Sulfate 2.5 meq/Calcium Chloride 5 meq/ Bicarbonate Dialysis Soln w/ out KCl 5,021.6871 ml @ 1,000 mls/hr Q5H2M IV Last administered on 09/24/18at 04:34; Start 09/24/18 at 04:30; Stop 09/24/18 at 17:00; Status DC Sodium Chloride 90 meq/Potassium Chloride 50 meq/ Potassium Phosphate 13.6 mmol/ Magnesium Sulfate 10 meq/ Calcium Gluconate 10 meq/ Multivitamins 10 ml/Chromium / Copper/Manganese/ Seleni/Zn 1 ml/ Total Parenteral Nutrition/Amino Acids/ Dextrose/ Fat Emulsion Intravenous 87.0013 ml @ 3.625 mls/hr TPN CONT IV ; Start 09/24/18 at 22:00; Stop 09/25/18 at 21:59; Status UNV Info (Tpn Per Pharmacy) 1 each PRN DAILY PRN MC SEE COMMENTS Last administered on 10/02/18at 14:30; Start 09/24/18 at 08:15 Sodium Acetate 45 meq/Potassium Acetate 25 meq/ Potassium Phosphate 13.6 mmol/ Magnesium Sulfate 10 meq/ Calcium Gluconate 10 meq/ Multivitamins 10 ml/Chromium / Copper/Manganese/ Seleni/Zn 1 ml/ Total Parenteral Nutrition/Amino Acids/ Dextrose/ Fat Emulsion Intravenous 1,422 ml @ 59.25 mls/ hr TPN CONT IV Last administered on 09/24/18at 22:50; Start 09/24/18 at 22:00; Stop 09/25/18 at 21:59 ; Status DC Potassium Chloride/Water 50 ml @ 50 mls/hr Q1H IV Last administered on at 10:39; Start 09/25/18 at 09:00; Stop 09/25/18 at 10:59; Status DC Insulin Human Lispro (HumaLOG) 0-5 UNITS Q6HRS SQ Last administered on at 17:56; Start 09/25/18 at 12:00 Dextrose (Dextrose 50%-Water Syringe) 12.5 gm PRN Q15MIN PRN IV SEE COMMENTS; Start 09/25/18 at 09:30 Famotidine (Pepcid Vial) 20 mg QHS IVP Last administered on 09/30/18at 20:55; Start 09/25/18 at 21:00; Stop 10/01/18 at 11:50; Status DC Linezolid/Dextrose 300 ml @ 300 mls/hr Q12HR IV Last administered on 09/28/18at 08:52; Start 09/25/18 at 13:00; Stop 09/28/18 at 17:06; Status DC Pantoprazole Sodium (PROTONIX VIAL for IV PUSH) 40 mg DAILYAC IVP ; Start at 13:00; Stop 09/25/18 at 13:00; Status DC Sodium Chloride 45 meq/Potassium Acetate 35 meq/ Potassium Phosphate 17 mmol/ Magnesium Sulfate 5 meq/Calcium Gluconate 10 meq/ Multivitamins 10 ml/Chromium/ Copper/Manganese/ Seleni/Zn 1 ml/ Total Parenteral Nutrition/Amino Acids/ Dextrose/ Fat Emulsion Intravenous 1,512 ml @ 63 mls/hr TPN CONT IV Last administered on 09/25/18at 22:10; Start 09/25/18 at 22:00; Stop 09/26/18 at 13:53 ; Status DC Sodium Phosphate 10 mmol/Dextrose 253.3333 ml @ 63.333 m... 1X ONCE IV Last administered on 09/25/18at 16:16; Start 09/25/18 at 16:00; Stop 09/25/18 at 19:59 ; Status DC Amitriptyline HCl (Elavil) 25 mg QHS PO ; Start 09/26/18 at 21:00; Status UNV Non-Formulary Medication (Desvenlafaxine Succinate (Pristiq Er)) 1 tab DAILY PO ; Start 09/27/18 at 09:00; Status UNV Haloperidol (Haldol) 10 mg HS PO Last administered on 09/26/18at 21:20; Start at 21:00; Stop 09/27/18 at 21:07; Status DC Sodium Chloride 45 meq/Potassium Acetate 35 meq/ Potassium Phosphate 17 mmol/ Magnesium Sulfate 5 meq/Calcium Gluconate 10 meq/ Multivitamins 10 ml/Chromium/ Copper/Manganese/ Seleni/Zn 1 ml/ Total Parenteral Nutrition/Amino Acids/ Dextrose/ Fat Emulsion Intravenous 1,512 ml @ 63 mls/hr TPN CONT IV ; Start at 22:00; Stop 09/27/18 at 21:59; Status Cancel Sodium Chloride 45 meq/Potassium Acetate 35 meq/ Potassium Phosphate 17 mmol/ Magnesium Sulfate 5 meq/Calcium Gluconate 10 meq/ Multivitamins 10 ml/Chromium/ Copper/Manganese/ Seleni/Zn 1 ml/ Total Parenteral Nutrition/Amino Acids/ Dextrose/ Fat Emulsion Intravenous 1,512 ml @ 63 mls/hr TPN CONT IV Last administered on 09/26/18at 21:31; Start 09/26/18 at 22:00; Stop 09/27/18 at 21:59 ; Status DC Lorazepam (Ativan) 0.5 mg PRN Q6HRS PRN PO ANXIETY / AGITATION Last administered on 09/30/18at 20:54; Start 09/27/18 at 08:15 Sodium Chloride 45 meq/Potassium Acetate 35 meq/ Potassium Phosphate 17 mmol/ Magnesium Sulfate 5 meq/Calcium Gluconate 10 meq/ Multivitamins 10 ml/Chromium/ Copper/Manganese/ Seleni/Zn 1 ml/ Total Parenteral Nutrition/Amino Acids/ Dextrose/ Fat Emulsion Intravenous 1,512 ml @ 63 mls/hr TPN CONT IV Last administered on 09/27/18at 21:34; Start 09/27/18 at 22:00; Stop 09/28/18 at 21:59 ; Status DC Haloperidol Lactate (Haldol Inj) 10 mg HS IVP Last administered on 09/27/18at 21 :33; Start 09/27/18 at 22:00; Stop 09/28/18 at 07:58; Status DC Lorazepam (Ativan) 0.5 mg PRN Q6HRS PRN IV ANXIETY / AGITATION Last administered on 09/29/18at 00:20; Start 09/27/18 at 21:15 Haloperidol (Haldol) 10 mg PRN QHS PRN PO AGITATION IF TAKING PO; Start at 21:15; Stop 09/28/18 at 08:02; Status DC Haloperidol (Haldol) 5 mg QHS PO Last administered on 10/02/18at 22:20; Start 09/28/18 at 21:00 Sodium Chloride 45 meq/Potassium Acetate 35 meq/ Potassium Phosphate 17 mmol/ Magnesium Sulfate 5 meq/Calcium Gluconate 10 meq/ Multivitamins 10 ml/Chromium/ Copper/Manganese/ Seleni/Zn 1 ml/ Total Parenteral Nutrition/Amino Acids/ Dextrose/ Fat Emulsion Intravenous 1,512 ml @ 63 mls/hr TPN CONT IV Last administered on 09/28/18at 23:00; Start 09/28/18 at 22:00; Stop 09/29/18 at 21:59; Status DC Ondansetron HCl (Zofran) 4 mg PRN Q6HRS PRN IV NAUSEA/VOMITING; Start 09/29/18 at 11:30 Sodium Chloride 40 meq/Potassium Acetate 35 meq/ Potassium Phosphate 17 mmol/ Magnesium Sulfate 5 meq/Calcium Gluconate 10 meq/ Multivitamins 10 ml/Chromium/ Copper/Manganese/ Seleni/Zn 1 ml/ Total Parenteral Nutrition/Amino Acids/ Dextrose/ Fat Emulsion Intravenous 1,512 ml @ 63 mls/hr TPN CONT IV Last administered on 09/29/18at 21:18; Start 09/29/18 at 22:00; Stop 09/30/18 at 21:59; Status DC Haloperidol Lactate (Haldol Inj) 5 mg 1X ONCE IM Last administered on at 15:15; Start 09/29/18 at 15:15; Stop 09/29/18 at 15:16; Status DC Sodium Chloride 30 meq/Sodium Acetate 10 meq/ Potassium Acetate 35 meq/ Potassium Phosphate 17 mmol/ Magnesium Sulfate 5 meq/Calcium Gluconate 10 meq/ Multivitamins 10 ml/Chromium/ Copper/Manganese/ Seleni/Zn 1 ml/ Total Parenteral Nutrition/Amino Acids/Dextrose/ Fat Emulsion Intravenous 1,512 ml @ 63 mls/hr TPN CONT IV Last administered on 09/30/18at 20:56; Start 09/30/18 at 22 :00; Stop 10/01/18 at 21:59; Status DC Acetaminophen (Tylenol) 650 mg PRN Q6HRS PRN PO FEVER Last administered on 15:22; Start 09/30/18 at 14:00 Meropenem 500 mg/ Sodium Chloride 50 ml @ 100 mls/hr Q8HRS IV Last administered on 10/03/18 06:00; Start 10/01/18 at 14:00 Vancomycin HCl (Vanco Per Pharmacy) 1 each PRN DAILY PRN MC SEE COMMENTS Last administered on 10/02/18 15:33; Start 10/01/18 at 11:30 Micafungin Sodium 100 mg/Dextrose 100 ml @ 100 mls/hr Q24H IV Last administered on 10/02/18 12:51; Start 10/01/18 at 12:00 Vancomycin HCl 1.75 gm/Sodium Chloride 500 ml @ 250 mls/hr 1X ONCE IV Last administered on 10/01/18 15:01; Start 10/01/18 at 12:00; Stop 10/01/18 at 13:59; Status DC Famotidine (Pepcid) 20 mg QHS PO Last administered on 10/02/18 22:25; Start 10/01/18 at 21:00 Sodium Chloride 30 meq/Sodium Acetate 10 meq/ Potassium Acetate 35 meq/ Potassium Phosphate 17 mmol/ Magnesium Sulfate 10 meq/Calcium Gluconate 10 meq/ Multivitamins 10 ml/Chromium/ Copper/Manganese/ Seleni/Zn 1 ml/ Total Parenteral Nutrition/Amino Acids/Dextrose/ Fat Emulsion Intravenous 1,512 ml @ 63 mls/hr TPN CONT IV Last administered on 10/01/18 22:10; Start 10/01/18 at 22 :00; Stop 10/02/18 at 21:59; Status DC Lactobacillus Rhamnosus (Culturelle) 1 cap BID PO Last administered on 10:13; Start 10/01/18 at 21:00 Vancomycin HCl 1 gm/Sodium Chloride 250 ml @ 250 mls/hr Q24H IV Last administered on 10/02/18 15:46; Start 10/02/18 at 15:00 Vancomycin HCl (Vancomycin Trough Level) 1 each 1X ONCE MC ; Start 10/03/18 at 14:30; Stop 10/03/18 at 14:31 Sodium Chloride 30 meq/Sodium Acetate 10 meq/ Potassium Acetate 35 meq/ Potassium Phosphate 17 mmol/ Magnesium Sulfate 10 meq/Calcium Gluconate 10 meq/ Multivitamins 10 ml/Chromium/ Copper/Manganese/ Seleni/Zn 1 ml/ Total Parenteral Nutrition/Amino Acids/Dextrose/ Fat Emulsion Intravenous 1,512 ml @ 63 mls/hr TPN CONT IV Last administered on 10/02/18at 22:21; Start 10/02/18 at 22 :00; Stop 10/03/18 at 21:59 Magnesium Sulfate/ Dextrose 100 ml @ 100 mls/hr 1X ONCE IV Last administered on 10/02/18at 17:18; Start 10/02/18 at 15:30; Stop 10/02/18 at 16:29; Status DC Active Scripts Active Reported [iron] 325 Mg PO Haloperidol 10 Mg Tablet 10 Mg PO QHS Ventolin Hfa Inhaler (Albuterol Sulfate) 18 Gm Hfa.aer.ad 2 Puff INH Q4HRS PRN Pristiq Er (Desvenlafaxine Succinate) 50 Mg Tab.er.24h 1 Tab PO DAILY Amitriptyline Hcl 25 Mg Tablet 1 Tab PO QHS Diazepam 5 Mg Tablet 5 Mg PO TID Gabapentin (Gabapentin) 300 Mg Capsule 300 Mg PO TID Vitals/I & O Vital Sign - Last 24 Hours 10/02/18 10/02/18 10/02/18 10/02/18 15:00 16:17 19:00 20:00 Temp 98.7 99.9 98.7 99.9 Pulse 112 108 Resp 18 18 B/P (MAP) 161/80 (107) 168/87 (114) Pulse Ox 96 96 O2 Delivery Room Air Room Air Room Air Room Air 10/02/18 10/02/18 10/03/18 10/03/18 20:23 22:24 02:33 07:16 Temp 99.3 99.5 99.1 99.3 99.5 99.1 Pulse 112 97 101 Resp 18 18 20 B/P (MAP) 154/80 (104) 129/57 (81) 136/62 (86) Pulse Ox 98 94 95 O2 Delivery Room Air Room Air Room Air Room Air 10/03/18 10/03/18 10/03/18 07:20 08:00 11:12 Temp 98.7 98.7 Pulse 103 Resp 20 B/P (MAP) 145/71 (95) Pulse Ox 96 O2 Delivery Room Air Room Air Room Air Intake and Output 10/02/18 10/02/18 10/03/18 14:59 22:59 06:59 Intake Total 120 ml Output Total 1301 ml 2 ml Balance -1301 ml -2 ml 120 ml MILY COOK MD Oct 03, 2018 12:24
[2018-10-03] MEDS: MICAFUNGIN 100 MG in IV DEXTROSE 5% 100ML 100 ML IV SCH (12:31)
[2018-10-03] MEDS: TPN PER PHARMACY MC PRN (13:47)
--- NOTE | 2018-10-03 13:50 | NUR ---
Pharmacy TPN Dosing Note S: ISABELL BUCIO is a 63 year old F Currently receiving Central Continuous TPN started 09/24/18 B:Pertinent PMH: recent critical illness, continued poor po intake Height: 5 feet, 0 inches Weight: 66.817679 kg Current diet: DYSPHAGIA LABS: Sodium: 139 Potassium: 5.5 Chloride: 107 Calcium: 8.8 Corrected Calcium: 9.92 Magnesium: 1.9 CO2: 19 SCr: 0.8 Glucose: 109 Albumin: 2.6 AST: 80 ALT: 39 TPN FORMULA: TPN TYPE: Central Continuous AMINO ACIDS: 60 gm DEXTROSE: 225 gm LIPIDS: 20 gm SODIUM CHLORIDE: 30 mEq SODIUM ACETATE: 10 mEq SODIUM PHOSPHATE: 13.6 mmol POTASSIUM CHLORIDE: - mEq POTASSIUM ACETATE: 10 mEq POTASSIUM PHOSPHATE: - mmol MAGNESIUM: 10 mEq CALCIUM: 10 mEq INSULIN: - units MULTIPLE VITAMIN: 10 ml TRACE ELEMENTS: MTE5 1ML ml(s) TPN PLAN: kaur kphos to naphos 13.6 mm, decrease kace to 10 meq. . R: Continue TPN at 63ml/hr Will monitor electrolytes, glucose, and tolerance to TPN. DIANDRA ALLEN [facility], 10/03/18 [id number]
[2018-10-03] MEDS: LORazepam 0.5 MG TABLET PO SCH ×2 (14:22→20:45)
[2018-10-03] MEDS: MEROPENEM 1 GM in IV NORMAL SALINE 100ML 100 ML IV SCH ×2 (14:22→20:46)
[2018-10-03 15:09] VITALS: BP 152/73
[2018-10-03 19:11] VITALS: BP 184/91
[2018-10-03] MEDS: HALOPERIDOL 5 MG TABLET. PO SCH (20:45)
[2018-10-03] MEDS: FAMOTIDINE 20 MG TABLET. PO SCH (20:46)
[2018-10-03] MEDS ORDERED: DEXTROSE 70% IV SCH ×11 (22:00)
[2018-10-03] MEDS ORDERED: AMINO ACID IV SCH ×11 (22:00)
[2018-10-03] MEDS ORDERED: TOTAL PARENTERAL NUTRITION IV SCH ×11 (22:00)
[2018-10-03] MEDS ORDERED: [UNRECOGNIZED DRUG - OTHER] IV SCH ×11 (22:00)
[2018-10-03 23:01] VITALS: BP 119/53
[2018-10-04 03:00] VITALS: BP 130/85
[2018-10-04] MEDS: INSULIN LISPRO 300 UNITS/3 ML INSULN.PEN. SQ SCH ×4 (06:00→18:00)
[2018-10-04] MEDS: MEROPENEM 1 GM in IV NORMAL SALINE 100ML 100 ML IV SCH ×3 (06:25→22:00)
[2018-10-04 07:03] LABS: CALCIUM 8.7 mg/dL (8.5-10.1); CREATININE 0.7 mg/dL (0.6-1.0); GFR 84.2; POTASSIUM 4.9 mmol/L (3.5-5.1)
[2018-10-04 07:13] VITALS: BP 132/51
[2018-10-04] MEDS: LACTOBACILLUS RHAMNOSUS GG 1 CAPSULE. PO SCH ×2 (08:05→21:59)
[2018-10-04] MEDS: LORazepam 0.5 MG TABLET PO SCH ×3 (08:05→21:59)
[2018-10-04] MEDS: IPRATRPIUM/ALBUTEROL 0.5/2.5MG 3 ML NEBU. NEB SCH (08:16)
--- NOTE | 2018-10-04 09:04 | PDOC ---
PROGRESS NOTES Subjective Subjective Patient mildly agitated and restless, NAD. Objective Objective Vital Signs Date Time Temp Pulse Resp B/P (MAP) Pulse Ox O2 Delivery O2 Flow Rate FiO2 10/04/18 08:17 97 Room Air 10/04/18 07:13 98.4 106 22 132/51 (78) 98.4 09/28/18 08:51 Intake and Output 10/04/18 07:00 Intake Total 300 ml Output Total 1 ml Balance 299 ml Intake Oral 300 ml Output Urine Total 1 ml # Voids 8 Physical Exam Abdomen: Normal bowel sounds, Soft, No tenderness Heart: Regular rate Extremities: No edema General: Alert, No acute distress Lungs: Clear to auscultation Plan Plan of Care 1. Acute respiratory failure with pneumonia - resolved, no hypoxia on room air. 2. metabolic acidosis with acute renal failure - resolved, renal function at baseline. 3. GI bleed - resolved. 4. fever - resolved, remains on Micafungin and Meropenem per ID. 5. schizophrenia with metabolic encephalopathy - still having some agitation but appears somewhat more oriented at times. Continue Haldol and scheduled Ativan with prn IV Ativan available. 6. dysphagia - still taking very little po. Continue TPN and dysphagia diet, continue speech tx. 7. debility - continue therapies. Transfer to [facility] today. Comment Review of Relevant I have reviewed the following items michelle (where applicable) has been applied. Labs Laboratory Tests Test 10/02/18 12:59 10/02/18 17:48 10/03/18 00:49 10/03/18 05:47 Glucose (Fingerstick) 137 mg/dL (70-99) 167 mg/dL (70-99) 132 mg/dL (70-99) 103 mg/dL (70-99) Test 10/03/18 06:12 10/03/18 12:03 10/03/18 17:56 10/04/18 01:36 White Blood Count 15.9 x10^3/uL (4.0-11.0) Red Blood Count 3.29 x10^6/uL (3.50-5.40) Hemoglobin 9.7 g/dL (12.0-15.5) Hematocrit 30.2 % (36.0-47.0) Mean Corpuscular Volume 92 fL (79-100) Mean Corpuscular Hemoglobin 30 pg (25-35) Mean Corpuscular Hemoglobin Concent 32 g/dL (31-37) Red Cell Distribution Width 16.7 % (11.5-14.5) Platelet Count 292 x10^3/uL (140-400) Sodium Level 139 mmol/L (136-145) Potassium Level 5.5 mmol/L (3.5-5.1) Chloride Level 107 mmol/L (98-107) Carbon Dioxide Level 19 mmol/L (21-32) Anion Gap 13 (6-14) Blood Urea Nitrogen 18 mg/dL (7-20) Creatinine 0.8 mg/dL (0.6-1.0) Estimated GFR (Cockcroft-Gault) 72.2 Glucose Level 109 mg/dL (70-99) Calcium Level 8.8 mg/dL (8.5-10.1) Phosphorus Level 4.4 mg/dL (2.6-4.7) Magnesium Level 1.9 mg/dL (1.8-2.4) Glucose (Fingerstick) 138 mg/dL (70-99) 120 mg/dL (70-99) 109 mg/dL (70-99) Test 10/04/18 06:24 10/04/18 06:30 Glucose (Fingerstick) 109 mg/dL (70-99) Sodium Level 138 mmol/L (136-145) Potassium Level 4.9 mmol/L (3.5-5.1) Chloride Level 107 mmol/L (98-107) Carbon Dioxide Level 18 mmol/L (21-32) Anion Gap 13 (6-14) Blood Urea Nitrogen 19 mg/dL (7-20) Creatinine 0.7 mg/dL (0.6-1.0) Estimated GFR (Cockcroft-Gault) 84.2 Glucose Level 106 mg/dL (70-99) Calcium Level 8.7 mg/dL (8.5-10.1) Laboratory Tests Test 10/03/18 12:03 10/03/18 17:56 10/04/18 01:36 10/04/18 06:24 Glucose (Fingerstick) 138 mg/dL (70-99) 120 mg/dL (70-99) 109 mg/dL (70-99) 109 mg/dL (70-99) Test 10/04/18 06:30 Sodium Level 138 mmol/L (136-145) Potassium Level 4.9 mmol/L (3.5-5.1) Chloride Level 107 mmol/L (98-107) Carbon Dioxide Level 18 mmol/L (21-32) Anion Gap 13 (6-14) Blood Urea Nitrogen 19 mg/dL (7-20) Creatinine 0.7 mg/dL (0.6-1.0) Estimated GFR (Cockcroft-Gault) 84.2 Glucose Level 106 mg/dL (70-99) Calcium Level 8.7 mg/dL (8.5-10.1) Microbiology 10/01/18 Blood Culture - Preliminary, Resulted NO GROWTH AFTER 2 DAYS 09/25/18 - Final, Complete 09/25/18 - Final, Complete 09/25/18 - Final, Complete 09/25/18 Gram Stain Evaluation - Final, Complete 09/25/18 Sputum Culture - Final, Complete 09/25/18 Sputum Result 1 - Final, Complete 09/25/18 Sputum Result 2 - Final, Complete 10/01/18 Urine Culture - Final, Complete 10/01/18 Urine Culture Result 1 (MELODY) - Final, Complete Medications Current Medications Sodium Chloride 1,000 ml @ 1,000 mls/hr 1X ONCE IV Last administered on at 17:18; Start 09/22/18 at 17:15; Stop 09/22/18 at 18:14; Status DC Pantoprazole Sodium 80 mg/ Sodium Chloride 100 ml @ 10 mls/hr Q10H IV Last administered on 09/24/18at 05:46; Start 09/22/18 at 17:15; Stop 09/24/18 at 15:43 ; Status DC Pantoprazole Sodium (PROTONIX VIAL for IV PUSH) 80 mg 1X ONCE IVP Last administered on 09/22/18at 17:39; Start 09/22/18 at 17:15; Stop 09/22/18 at 17:17 ; Status DC Ceftriaxone Sodium (Rocephin) 1 gm 1X ONCE IVP ; Start 09/22/18 at 17:30; Stop 09/22/18 at 17:30; Status DC Sodium Chloride 1,000 ml @ 1,000 mls/hr 1X ONCE IV Last administered on at 17:27; Start 09/22/18 at 17:30; Stop 09/22/18 at 18:29; Status DC Vancomycin HCl (Vanco Per Pharmacy) 1 each PRN DAILY PRN MC SEE COMMENTS Last administered on 09/24/18at 21:37; Start 09/22/18 at 17:30; Stop 09/25/18 at 12:02 ; Status DC Piperacillin Sod/ Tazobactam Sod (Zosyn Per Pharmacy) 1 each PRN DAILY PRN MC SEE COMMENTS; Start 09/22/18 at 17:30; Stop 10/03/18 at 11:06; Status DC Piperacillin Sod/ Tazobactam Sod 3.375 gm/Sodium Chloride 50 ml @ 100 mls/hr 1X ONCE IV Last administered on 09/22/18at 18:04; Start 09/22/18 at 17:30; Stop 09/22/18 at 17:59; Status DC Vancomycin HCl 1.75 gm/Sodium Chloride 500 ml @ 250 mls/hr 1X ONCE IV Last administered on 09/22/18at 23:28; Start 09/22/18 at 17:30; Stop 09/22/18 at 19:29 ; Status DC Sodium Bicarbonate (Sodium Bicarb Adult 8.4% Syr) 50 meq 1X ONCE IV Last administered on 09/22/18at 18:03; Start 09/22/18 at 17:45; Stop 09/22/18 at 17:46 ; Status DC Norepinephrine Bitartrate 250 ml @ 0 mls/hr 1X ONCE IV Last administered on at 17:51; Start 09/22/18 at 17:45; Stop 09/22/18 at 17:46; Status DC Sodium Bicarbonate 150 meq/Sterile Water 1,150 ml @ 125 mls/hr 1X ONCE IV Last administered on 09/22/18at 18:30; Start 09/22/18 at 18:30; Stop 09/23/18 at 03:41; Status DC Piperacillin Sod/ Tazobactam Sod 3.375 gm/Sodium Chloride 50 ml @ 100 mls/hr Q6HRS IV Last administered on 10/01/18at 05:20; Start 09/23/18 at 00:00; Stop 10/01/18 at 11:20; Status DC Vasopressin 40 unit/Dextrose 102 ml @ 6 mls/hr CONT PRN IV SEE I/O RECORD Last administered on 09/24/18at 12:53; Start 09/22/18 at 18:45; Stop 09/27/18 at 15:12 ; Status DC Fentanyl Citrate (Fentanyl 2ml Vial) 50 mcg 1X ONCE IV ; Start 09/22/18 at 19: 00; Stop 09/22/18 at 19:01; Status DC Midazolam HCl 100 ml @ 5 mls/hr CONT PRN IV SEE I/O RECORD Last administered on 09/25/18at 19:41; Start 09/22/18 at 19:00; Stop 09/29/18 at 11:55; Status DC Lidocaine/Sodium Bicarbonate (Buffered Lidocaine 1%) 4 ml 1X ONCE INJ Last administered on 09/22/18at 19:15; Start 09/22/18 at 19:15; Stop 09/22/18 at 19:18 ; Status DC Heparin Sodium (Porcine) (Heparin Sodium) 2,500 unit 1X ONCE INT CAT Last administered on 09/22/18at 19:15; Start 09/22/18 at 19:15; Stop 09/22/18 at 19:18 ; Status DC Heparin Sodium (Porcine) (Heparin Sodium) 10,000 unit STK-MED ONCE .ROUTE ; Start 09/22/18 at 19:17; Stop 09/22/18 at 19:18; Status DC Sodium Bicarbonate 40 meq/Potassium Chloride 15 meq/ Magnesium Sulfate 5 meq/ Calcium Chloride 2.5 meq/ Bicarbonate Dialysis Soln w/ out KCl 5,050.5172 ml @ 1 ,000 mls/hr Q5H4M IV Last administered on 09/23/18at 05:02; Start 09/22/18 at 22 :00; Stop 09/23/18 at 08:43; Status DC Sodium Bicarbonate 40 meq/Potassium Chloride 15 meq/ Magnesium Sulfate 5 meq/ Calcium Chloride 2.5 meq/ Bicarbonate Dialysis Soln w/ out KCl 5,050.5172 ml @ 1 ,000 mls/hr Q5H4M IV Last administered on 09/23/18at 05:02; Start 09/22/18 at 22 :00; Stop 09/23/18 at 08:43; Status DC Sodium Bicarbonate 150 meq/Sterile Water 1,150 ml @ 300 mls/hr Q3H50M IV Last administered on 09/24/18at 05:45; Start 09/22/18 at 22:00; Stop 09/24/18 at 15:44 ; Status DC Etomidate (Amidate) 20 mg STK-MED ONCE IV ; Start 09/22/18 at 20:36; Stop at 20:37; Status DC Rocuronium [place] (Zemuron) 50 mg STK-MED ONCE .ROUTE ; Start 09/22/18 at 20:36 ; Stop 09/22/18 at 20:37; Status DC Norepinephrine Bitartrate 250 ml @ 1.875 mls/ hr CONT PRN IV SEE I/O RECORD Last administered on 09/24/18at 12:54; Start 09/22/18 at 23:30; Stop 09/27/18 at 15:53; Status DC Fentanyl Citrate (Fentanyl 2ml Vial) 50 mcg PRN Q1HR PRN IV PAIN Last administered on 09/29/18at 21:48; Start 09/22/18 at 23:30; Stop 10/02/18 at 07:55; Status DC Epinephrine HCl 4 mg/Sodium Chloride 254 ml @ 26.44 mls/ hr CONT PRN IV SEE I/ O RECORD; Start 09/23/18 at 02:15; Stop 09/27/18 at 15:53; Status DC Albuterol/ Ipratropium (Duoneb) 3 ml RTQID NEB Last administered on 10/04/18at 08 :16; Start 09/23/18 at 08:00 Sodium Bicarbonate 40 meq/Potassium Chloride 15 meq/ Magnesium Sulfate 5 meq/ Calcium Chloride 17.5 meq/ Bicarbonate Dialysis Soln w/ out KCl 5,061.2315 ml @ 1,000 mls/hr Q5H4M IV Last administered on 09/23/18at 10:13; Start 09/23/18 at 10:00; Stop 09/23/18 at 10:32; Status DC Sodium Bicarbonate 40 meq/Potassium Chloride 15 meq/ Magnesium Sulfate 5 meq/ Calcium Chloride 17.5 meq/ Bicarbonate Dialysis Soln w/ out KCl 5,061.2315 ml @ 1,000 mls/hr Q5H4M IV Last administered on 09/23/18at 10:12; Start 09/23/18 at 10:00; Stop 09/23/18 at 10:33; Status DC Sodium Bicarbonate 40 meq/Potassium Chloride 15 meq/ Magnesium Sulfate 5 meq/ Calcium Chloride 5 meq/ Bicarbonate Dialysis Soln w/ out KCl 5,052.3029 ml @ 1, 000 mls/hr Q5H4M IV Last administered on 09/23/18at 15:40; Start 09/23/18 at 11: 00; Stop 09/23/18 at 19:28; Status DC Sodium Bicarbonate 40 meq/Potassium Chloride 15 meq/ Magnesium Sulfate 5 meq/ Calcium Chloride 5 meq/ Bicarbonate Dialysis Soln w/ out KCl 5,052.3029 ml @ 1, 000 mls/hr Q5H4M IV Last administered on 09/23/18at 15:39; Start 09/23/18 at 10: 45; Stop 09/23/18 at 19:28; Status DC Vancomycin HCl 1 gm/Sodium Chloride 250 ml @ 250 mls/hr Q24H IV Last administered on 09/24/18at 21:38; Start 09/23/18 at 21:00; Stop 09/25/18 at 12:02 ; Status DC Vancomycin HCl (Vancomycin Trough Level) 1 each 1X ONCE MC Last administered on 09/24/18at 20:30; Start 09/24/18 at 20:30; Stop 09/24/18 at 20:31; Status DC Potassium Chloride 15 meq/ Magnesium Sulfate 5 meq/Calcium Chloride 5 meq/ Bicarbonate Dialysis Soln w/ out KCl 5,012.3029 ml @ 1,000 mls/hr Q5H1M IV Last administered on 09/23/18at 23:50; Start 09/23/18 at 20:30; Stop 09/24/18 at 04:06; Status DC Potassium Chloride 35 meq/ Magnesium Sulfate 5 meq/Calcium Chloride 5 meq/ Bicarbonate Dialysis Soln w/ out KCl 5,022.3029 ml @ 1,000 mls/hr Q5H2M IV Last administered on 09/23/18at 23:49; Start 09/23/18 at 20:30; Stop 09/24/18 at 04:06; Status DC Fentanyl Citrate 30 ml @ 0 mls/hr CONT PRN IV SEE PROTOCOL Last administered on 09/27/18at 07:03; Start 09/23/18 at 22:30; Stop 09/27/18 at 15:53; Status DC Chlorhexidine Gluconate (Peridex) 15 ml BID MM Last administered on 09/24/18at 21:41; Start 09/24/18 at 09:00; Stop 09/25/18 at 09:30; Status DC Potassium Chloride 15 meq/ Magnesium Sulfate 2.5 meq/Calcium Chloride 5 meq/ Bicarbonate Dialysis Soln w/ out KCl 5,011.6871 ml @ 1,000 mls/hr Q5H1M IV Last administered on 09/24/18at 04:34; Start 09/24/18 at 04:30; Stop 09/24/18 at 17:00; Status DC Potassium Chloride 35 meq/ Magnesium Sulfate 2.5 meq/Calcium Chloride 5 meq/ Bicarbonate Dialysis Soln w/ out KCl 5,021.6871 ml @ 1,000 mls/hr Q5H2M IV Last administered on 09/24/18at 04:34; Start 09/24/18 at 04:30; Stop 09/24/18 at 17:00; Status DC Sodium Chloride 90 meq/Potassium Chloride 50 meq/ Potassium Phosphate 13.6 mmol/ Magnesium Sulfate 10 meq/ Calcium Gluconate 10 meq/ Multivitamins 10 ml/Chromium / Copper/Manganese/ Seleni/Zn 1 ml/ Total Parenteral Nutrition/Amino Acids/ Dextrose/ Fat Emulsion Intravenous 87.0013 ml @ 3.625 mls/hr TPN CONT IV ; Start 09/24/18 at 22:00; Stop 09/25/18 at 21:59; Status UNV Info (Tpn Per Pharmacy) 1 each PRN DAILY PRN MC SEE COMMENTS Last administered on 10/03/18at 13:47; Start 09/24/18 at 08:15 Sodium Acetate 45 meq/Potassium Acetate 25 meq/ Potassium Phosphate 13.6 mmol/ Magnesium Sulfate 10 meq/ Calcium Gluconate 10 meq/ Multivitamins 10 ml/Chromium / Copper/Manganese/ Seleni/Zn 1 ml/ Total Parenteral Nutrition/Amino Acids/ Dextrose/ Fat Emulsion Intravenous 1,422 ml @ 59.25 mls/ hr TPN CONT IV Last administered on 09/24/18at 22:50; Start 09/24/18 at 22:00; Stop 09/25/18 at 21:59 ; Status DC Potassium Chloride/Water 50 ml @ 50 mls/hr Q1H IV Last administered on at 10:39; Start 09/25/18 at 09:00; Stop 09/25/18 at 10:59; Status DC Insulin Human Lispro (HumaLOG) 0-5 UNITS Q6HRS SQ Last administered on at 17:56; Start 09/25/18 at 12:00 Dextrose (Dextrose 50%-Water Syringe) 12.5 gm PRN Q15MIN PRN IV SEE COMMENTS; Start 09/25/18 at 09:30 Famotidine (Pepcid Vial) 20 mg QHS IVP Last administered on 09/30/18at 20:55; Start 09/25/18 at 21:00; Stop 10/01/18 at 11:50; Status DC Linezolid/Dextrose 300 ml @ 300 mls/hr Q12HR IV Last administered on 09/28/18at 08:52; Start 09/25/18 at 13:00; Stop 09/28/18 at 17:06; Status DC Pantoprazole Sodium (PROTONIX VIAL for IV PUSH) 40 mg DAILYAC IVP ; Start at 13:00; Stop 09/25/18 at 13:00; Status DC Sodium Chloride 45 meq/Potassium Acetate 35 meq/ Potassium Phosphate 17 mmol/ Magnesium Sulfate 5 meq/Calcium Gluconate 10 meq/ Multivitamins 10 ml/Chromium/ Copper/Manganese/ Seleni/Zn 1 ml/ Total Parenteral Nutrition/Amino Acids/ Dextrose/ Fat Emulsion Intravenous 1,512 ml @ 63 mls/hr TPN CONT IV Last administered on 09/25/18at 22:10; Start 09/25/18 at 22:00; Stop 09/26/18 at 13:53 ; Status DC Sodium Phosphate 10 mmol/Dextrose 253.3333 ml @ 63.333 m... 1X ONCE IV Last administered on 09/25/18at 16:16; Start 09/25/18 at 16:00; Stop 09/25/18 at 19:59 ; Status DC Amitriptyline HCl (Elavil) 25 mg QHS PO ; Start 09/26/18 at 21:00; Status UNV Non-Formulary Medication (Desvenlafaxine Succinate (Pristiq Er)) 1 tab DAILY PO ; Start 09/27/18 at 09:00; Status UNV Haloperidol (Haldol) 10 mg HS PO Last administered on 09/26/18at 21:20; Start at 21:00; Stop 09/27/18 at 21:07; Status DC Sodium Chloride 45 meq/Potassium Acetate 35 meq/ Potassium Phosphate 17 mmol/ Magnesium Sulfate 5 meq/Calcium Gluconate 10 meq/ Multivitamins 10 ml/Chromium/ Copper/Manganese/ Seleni/Zn 1 ml/ Total Parenteral Nutrition/Amino Acids/ Dextrose/ Fat Emulsion Intravenous 1,512 ml @ 63 mls/hr TPN CONT IV ; Start at 22:00; Stop 09/27/18 at 21:59; Status Cancel Sodium Chloride 45 meq/Potassium Acetate 35 meq/ Potassium Phosphate 17 mmol/ Magnesium Sulfate 5 meq/Calcium Gluconate 10 meq/ Multivitamins 10 ml/Chromium/ Copper/Manganese/ Seleni/Zn 1 ml/ Total Parenteral Nutrition/Amino Acids/ Dextrose/ Fat Emulsion Intravenous 1,512 ml @ 63 mls/hr TPN CONT IV Last administered on 09/26/18at 21:31; Start 09/26/18 at 22:00; Stop 09/27/18 at 21:59 ; Status DC Lorazepam (Ativan) 0.5 mg PRN Q6HRS PRN PO ANXIETY / AGITATION Last administered on 09/30/18at 20:54; Start 09/27/18 at 08:15; Stop 10/03/18 at 12:14; Status DC Sodium Chloride 45 meq/Potassium Acetate 35 meq/ Potassium Phosphate 17 mmol/ Magnesium Sulfate 5 meq/Calcium Gluconate 10 meq/ Multivitamins 10 ml/Chromium/ Copper/Manganese/ Seleni/Zn 1 ml/ Total Parenteral Nutrition/Amino Acids/ Dextrose/ Fat Emulsion Intravenous 1,512 ml @ 63 mls/hr TPN CONT IV Last administered on 09/27/18at 21:34; Start 09/27/18 at 22:00; Stop 09/28/18 at 21:59 ; Status DC Haloperidol Lactate (Haldol Inj) 10 mg HS IVP Last administered on 09/27/18at 21 :33; Start 09/27/18 at 22:00; Stop 09/28/18 at 07:58; Status DC Lorazepam (Ativan) 0.5 mg PRN Q6HRS PRN IV ANXIETY / AGITATION Last administered on 10/03/18at 12:31; Start 09/27/18 at 21:15 Haloperidol (Haldol) 10 mg PRN QHS PRN PO AGITATION IF TAKING PO; Start at 21:15; Stop 09/28/18 at 08:02; Status DC Haloperidol (Haldol) 5 mg QHS PO Last administered on 10/02/18at 22:20; Start 09/28/18 at 21:00; Stop 10/03/18 at 12:14; Status DC Sodium Chloride 45 meq/Potassium Acetate 35 meq/ Potassium Phosphate 17 mmol/ Magnesium Sulfate 5 meq/Calcium Gluconate 10 meq/ Multivitamins 10 ml/Chromium/ Copper/Manganese/ Seleni/Zn 1 ml/ Total Parenteral Nutrition/Amino Acids/ Dextrose/ Fat Emulsion Intravenous 1,512 ml @ 63 mls/hr TPN CONT IV Last administered on 09/28/18at 23:00; Start 09/28/18 at 22:00; Stop 09/29/18 at 21:59; Status DC Ondansetron HCl (Zofran) 4 mg PRN Q6HRS PRN IV NAUSEA/VOMITING; Start 09/29/18 at 11:30 Sodium Chloride 40 meq/Potassium Acetate 35 meq/ Potassium Phosphate 17 mmol/ Magnesium Sulfate 5 meq/Calcium Gluconate 10 meq/ Multivitamins 10 ml/Chromium/ Copper/Manganese/ Seleni/Zn 1 ml/ Total Parenteral Nutrition/Amino Acids/ Dextrose/ Fat Emulsion Intravenous 1,512 ml @ 63 mls/hr TPN CONT IV Last administered on 09/29/18at 21:18; Start 09/29/18 at 22:00; Stop 09/30/18 at 21:59; Status DC Haloperidol Lactate (Haldol Inj) 5 mg 1X ONCE IM Last administered on at 15:15; Start 09/29/18 at 15:15; Stop 09/29/18 at 15:16; Status DC Sodium Chloride 30 meq/Sodium Acetate 10 meq/ Potassium Acetate 35 meq/ Potassium Phosphate 17 mmol/ Magnesium Sulfate 5 meq/Calcium Gluconate 10 meq/ Multivitamins 10 ml/Chromium/ Copper/Manganese/ Seleni/Zn 1 ml/ Total Parenteral Nutrition/Amino Acids/Dextrose/ Fat Emulsion Intravenous 1,512 ml @ 63 mls/hr TPN CONT IV Last administered on 09/30/18at 20:56; Start 09/30/18 at 22 :00; Stop 10/01/18 at 21:59; Status DC Acetaminophen (Tylenol) 650 mg PRN Q6HRS PRN PO FEVER Last administered on at 15:22; Start 09/30/18 at 14:00 Meropenem 500 mg/ Sodium Chloride 50 ml @ 100 mls/hr Q8HRS IV Last administered on 10/03/18 06:00; Start 10/01/18 at 14:00; Stop 10/03/18 at 12:38; Status DC Vancomycin HCl (Vanco Per Pharmacy) 1 each PRN DAILY PRN MC SEE COMMENTS Last administered on 10/02/18at 15:33; Start 10/01/18 at 11:30; Stop 10/03/18 at 12:42; Status DC Micafungin Sodium 100 mg/Dextrose 100 ml @ 100 mls/hr Q24H IV Last administered on 10/03/18at 12:31; Start 10/01/18 at 12:00 Vancomycin HCl 1.75 gm/Sodium Chloride 500 ml @ 250 mls/hr 1X ONCE IV Last administered on 10/01/18 15:01; Start 10/01/18 at 12:00; Stop 10/01/18 at 13:59; Status DC Famotidine (Pepcid) 20 mg QHS PO Last administered on 10/03/18at 20:46; Start 10/01/18 at 21:00 Sodium Chloride 30 meq/Sodium Acetate 10 meq/ Potassium Acetate 35 meq/ Potassium Phosphate 17 mmol/ Magnesium Sulfate 10 meq/Calcium Gluconate 10 meq/ Multivitamins 10 ml/Chromium/ Copper/Manganese/ Seleni/Zn 1 ml/ Total Parenteral Nutrition/Amino Acids/Dextrose/ Fat Emulsion Intravenous 1,512 ml @ 63 mls/hr TPN CONT IV Last administered on 10/01/18at 22:10; Start 10/01/18 at 22 :00; Stop 10/02/18 at 21:59; Status DC Lactobacillus Rhamnosus (Culturelle) 1 cap BID PO Last administered on 08:05; Start 10/01/18 at 21:00 Vancomycin HCl 1 gm/Sodium Chloride 250 ml @ 250 mls/hr Q24H IV Last administered on 10/02/18 15:46; Start 10/02/18 at 15:00; Stop 10/03/18 at 12:38; Status DC Vancomycin HCl (Vancomycin Trough Level) 1 each 1X ONCE MC ; Start 10/03/18 at 14:30; Stop 10/03/18 at 14:30; Status DC Sodium Chloride 30 meq/Sodium Acetate 10 meq/ Potassium Acetate 35 meq/ Potassium Phosphate 17 mmol/ Magnesium Sulfate 10 meq/Calcium Gluconate 10 meq/ Multivitamins 10 ml/Chromium/ Copper/Manganese/ Seleni/Zn 1 ml/ Total Parenteral Nutrition/Amino Acids/Dextrose/ Fat Emulsion Intravenous 1,512 ml @ 63 mls/hr TPN CONT IV Last administered on 10/02/18 22:21; Start 10/02/18 at 22 :00; Stop 10/03/18 at 21:59; Status DC Magnesium Sulfate/ Dextrose 100 ml @ 100 mls/hr 1X ONCE IV Last administered on 10/02/18at 17:18; Start 10/02/18 at 15:30; Stop 10/02/18 at 16:29; Status DC Haloperidol (Haldol) 10 mg QHS PO Last administered on 10/03/18at 20:45; Start at 21:00 Lorazepam (Ativan) 0.5 mg TID PO Last administered on 10/04/18at 08:05; Start 10/03/18 at 14:00 Meropenem 1 gm/ Sodium Chloride 100 ml @ 200 mls/hr Q8HRS IV Last administered on 10/04/18at 06:25; Start 10/03/18 at 14:00 Sodium Chloride 30 meq/Sodium Acetate 10 meq/ Potassium Acetate 10 meq/Sodium Phosphate 13.6 mmol/Magnesium Sulfate 10 meq/ Calcium Gluconate 10 meq/ Multivitamins 10 ml/Chromium/ Copper/Manganese/ Seleni/Zn 1 ml/ Total Parenteral Nutrition/Amino Acids/Dextrose/ Fat Emulsion Intravenous 1,512 ml @ 63 mls/hr TPN CONT IV Last administered on 10/03/18at 20:47; Start 10/03/18 at 22 :00; Stop 10/04/18 at 21:59 Active Scripts Active Reported [iron] 325 Mg PO Haloperidol 10 Mg Tablet 10 Mg PO QHS Ventolin Hfa Inhaler (Albuterol Sulfate) 18 Gm Hfa.aer.ad 2 Puff INH Q4HRS PRN Pristiq Er (Desvenlafaxine Succinate) 50 Mg Tab.er.24h 1 Tab PO DAILY Amitriptyline Hcl 25 Mg Tablet 1 Tab PO QHS Diazepam 5 Mg Tablet 5 Mg PO TID Gabapentin (Gabapentin) 300 Mg Capsule 300 Mg PO TID Vitals/I & O Vital Sign - Last 24 Hours 10/03/18 10/03/18 10/03/18 10/03/18 11:12 15:09 15:20 19:11 Temp 98.7 98.2 99.4 98.7 98.2 99.4 Pulse 103 105 112 Resp 20 18 16 B/P (MAP) 145/71 (95) 152/73 (99) 184/91 (122) Pulse Ox 96 95 98 O2 Delivery Room Air Room Air Room Air Room Air 10/03/18 10/03/18 10/04/18 10/04/18 20:00 23:01 03:00 07:13 Temp 99.7 99.0 98.4 99.7 99.0 98.4 Pulse 110 101 106 Resp 14 22 B/P (MAP) 119/53 (75) 130/85 (100) 132/51 (78) Pulse Ox 100 98 97 O2 Delivery Room Air Room Air Room Air 10/04/18 10/04/18 07:28 08:17 Pulse Ox 97 O2 Delivery Room Air Room Air Intake and Output 10/03/18 10/03/18 10/04/18 15:00 23:00 07:00 Intake Total 60 ml 120 ml 120 ml Output Total 1 ml Balance 60 ml 119 ml 120 ml MILY COOK MD Oct 04, 2018 09:04
--- NOTE | 2018-10-04 09:16 | DISCH ---
DISCHARGE DISCHARGE INFORMATION: DISCHARGE DATE: Oct 04, 2018 CONDITION ON DISCHARGE: Stable CODE STATUS: Code Status: Full LTAC: ADMIT TO LTAC: Yes POST DISCHARGE ORDERS: ACTIVITY ORDERS: Resume previous activity WEIGHT BEARING STATUS: No restrictions DIET AFTER DISCHARGE: Regular TREATMENT/EQUIPMENT ORDERS: INFUSION EQUIPMENT NEEDED: PICC Line Physical Therapy For: Evalulation/Treatment Occupational Therapy For: Evaluation/Treatment Speech Language Pathology For: Swallow Cognition DISCHARGE MEDICATIONS: Home Meds Reported Medications [iron] No Conflict Check, 325 MG PO for anemia 09/23/18 Haloperidol (HALOPERIDOL) 10 Mg Tablet, 10 MG PO QHS for sleep, TAB 09/23/18 Albuterol Sulfate (VENTOLIN HFA INHALER) 18 Gm Hfa.aer.ad, 2 PUFF INH Q4HRS PRN for shortness of breath, INHALER 0 Refills 07/04/18 Desvenlafaxine Succinate (PRISTIQ ER) 50 Mg Tab.er.24h, 1 TAB PO DAILY, #30 TAB 5 Refills 07/01/18 Amitriptyline Hcl (AMITRIPTYLINE HCL) 25 Mg Tablet, 1 TAB PO QHS, #30 TAB 5 Refills 07/01/18 Diazepam (DIAZEPAM) 5 Mg Tablet, 5 MG PO TID, TAB 07/01/18 Gabapentin (GABAPENTIN ) 300 Mg Capsule, 300 MG PO TID, CAP 07/01/18 MILY COOK MD Oct 04, 2018 09:16
--- NOTE | 2018-10-04 09:20 | NUR ---
[facility] following pt. Spoke with [facility] who reported they do not have open bed today. Luci reported they will have a bed possibly tomorrow or Monday. RN notified.
--- NOTE | 2018-10-04 09:21 | DISCH ---
DISCHARGE DISCHARGE INFORMATION: DISCHARGE DATE: Oct 04, 2018 CONDITION ON DISCHARGE: Stable CODE STATUS: Code Status: Full POST DISCHARGE ORDERS: ACTIVITY ORDERS: Resume previous activity WEIGHT BEARING STATUS: No restrictions DIET AFTER DISCHARGE: Dysphagia I with thin liquids TREATMENT/EQUIPMENT ORDERS: INFUSION EQUIPMENT NEEDED: PICC Line Physical Therapy For: Evalulation/Treatment Occupational Therapy For: Evaluation/Treatment Speech Language Pathology For: Swallow Cognition DISCHARGE MEDICATIONS: Home Meds Reported Medications [iron] No Conflict Check, 325 MG PO for anemia 09/23/18 Haloperidol (HALOPERIDOL) 10 Mg Tablet, 10 MG PO QHS for sleep, TAB 09/23/18 Albuterol Sulfate (VENTOLIN HFA INHALER) 18 Gm Hfa.aer.ad, 2 PUFF INH Q4HRS PRN for shortness of breath, INHALER 0 Refills 07/04/18 Desvenlafaxine Succinate (PRISTIQ ER) 50 Mg Tab.er.24h, 1 TAB PO DAILY, #30 TAB 5 Refills 07/01/18 Amitriptyline Hcl (AMITRIPTYLINE HCL) 25 Mg Tablet, 1 TAB PO QHS, #30 TAB 5 Refills 07/01/18 Diazepam (DIAZEPAM) 5 Mg Tablet, 5 MG PO TID, TAB 07/01/18 Gabapentin (GABAPENTIN ) 300 Mg Capsule, 300 MG PO TID, CAP 07/01/18 MILY COOK MD Oct 04, 2018 09:21
--- NOTE | 2018-10-04 09:21 | PDOC ---
PULMONARY PROGRESS NOTES Subjective Patient not more SOA Vitals Vital Signs Date Time Temp Pulse Resp B/P (MAP) Pulse Ox O2 Delivery O2 Flow Rate FiO2 10/04/18 08:17 97 Room Air 10/04/18 07:13 98.4 106 22 132/51 (78) 98.4 General: Alert Lungs: Clear, Other (decrease bs) Cardiovascular: S1, S2 Abdomen: Soft, Non-tender Neuro Exam: Alert Extremities: Other (1+edema) Labs Laboratory Tests Test 10/02/18 12:59 10/02/18 17:48 10/03/18 00:49 10/03/18 05:47 Glucose (Fingerstick) 137 mg/dL (70-99) 167 mg/dL (70-99) 132 mg/dL (70-99) 103 mg/dL (70-99) Test 10/03/18 06:12 10/03/18 12:03 10/03/18 17:56 10/04/18 01:36 White Blood Count 15.9 x10^3/uL (4.0-11.0) Red Blood Count 3.29 x10^6/uL (3.50-5.40) Hemoglobin 9.7 g/dL (12.0-15.5) Hematocrit 30.2 % (36.0-47.0) Mean Corpuscular Volume 92 fL (79-100) Mean Corpuscular Hemoglobin 30 pg (25-35) Mean Corpuscular Hemoglobin Concent 32 g/dL (31-37) Red Cell Distribution Width 16.7 % (11.5-14.5) Platelet Count 292 x10^3/uL (140-400) Sodium Level 139 mmol/L (136-145) Potassium Level 5.5 mmol/L (3.5-5.1) Chloride Level 107 mmol/L (98-107) Carbon Dioxide Level 19 mmol/L (21-32) Anion Gap 13 (6-14) Blood Urea Nitrogen 18 mg/dL (7-20) Creatinine 0.8 mg/dL (0.6-1.0) Estimated GFR (Cockcroft-Gault) 72.2 Glucose Level 109 mg/dL (70-99) Calcium Level 8.8 mg/dL (8.5-10.1) Phosphorus Level 4.4 mg/dL (2.6-4.7) Magnesium Level 1.9 mg/dL (1.8-2.4) Glucose (Fingerstick) 138 mg/dL (70-99) 120 mg/dL (70-99) 109 mg/dL (70-99) Test 10/04/18 06:24 10/04/18 06:30 Glucose (Fingerstick) 109 mg/dL (70-99) Sodium Level 138 mmol/L (136-145) Potassium Level 4.9 mmol/L (3.5-5.1) Chloride Level 107 mmol/L (98-107) Carbon Dioxide Level 18 mmol/L (21-32) Anion Gap 13 (6-14) Blood Urea Nitrogen 19 mg/dL (7-20) Creatinine 0.7 mg/dL (0.6-1.0) Estimated GFR (Cockcroft-Gault) 84.2 Glucose Level 106 mg/dL (70-99) Calcium Level 8.7 mg/dL (8.5-10.1) Laboratory Tests Test 10/03/18 12:03 10/03/18 17:56 10/04/18 01:36 10/04/18 06:24 Glucose (Fingerstick) 138 mg/dL (70-99) 120 mg/dL (70-99) 109 mg/dL (70-99) 109 mg/dL (70-99) Test 10/04/18 06:30 Sodium Level 138 mmol/L (136-145) Potassium Level 4.9 mmol/L (3.5-5.1) Chloride Level 107 mmol/L (98-107) Carbon Dioxide Level 18 mmol/L (21-32) Anion Gap 13 (6-14) Blood Urea Nitrogen 19 mg/dL (7-20) Creatinine 0.7 mg/dL (0.6-1.0) Estimated GFR (Cockcroft-Gault) 84.2 Glucose Level 106 mg/dL (70-99) Calcium Level 8.7 mg/dL (8.5-10.1) Medications Active Scripts Medications Dose Route/Sig Max Daily Dose Days Date Category [iron] 325 Mg PO 09/23/18 Reported Haloperidol 10 Mg Tablet 10 Mg PO QHS 09/23/18 Reported Ventolin Hfa Inhaler (Albuterol Sulfate) 18 Gm Hfa.aer.ad 2 Puff INH Q4HRS PRN 07/04/18 Reported Pristiq Er (Desvenlafaxine Succinate) 50 Mg Tab.er.24h 1 Tab PO DAILY 07/01/18 Reported Amitriptyline Hcl 25 Mg Tablet 1 Tab PO QHS 07/01/18 Reported Diazepam 5 Mg Tablet 5 Mg PO TID 07/01/18 Reported Gabapentin (Gabapentin) 300 Mg Capsule 300 Mg PO TID 07/01/18 Reported Impression . 1. Acute respiratory failure, multifactorial in etiology including shock, acute kidney injury 2. SEPTIC SHOCK 3. Abnormal CT of the chest with left lower lobe dense atelectasis/ PNEUMONIA 4. Acute kidney injury. 5. Electrolyte abnormality. 6. Gastrointestinal bleeding. 7. Hypotension. 8. Severe metabolic acidosis secondary to shock and acute kidney injury 9. FEVER PER ID BLOOD CULTURE LC Final Final report BLD CULT RESULT 1 Final Comment Brevundimonas diminuta ANTIMICROBIAL SUSCEPTIBILITY Final Comment S = Susceptible; I = Intermediate; R = Resistant P = Positive; N = Negative MICS are expressed in micrograms per mL Antibiotic RSLT#1 RSLT#2 RSLT#3 RSLT#4 Amikacin S<=4 Cefepime S<=2 Cefotaxime S<=2 Ceftazidime S<=2 Ceftriaxone S<=1 Ciprofloxacin S<=1 Gentamicin S<=1 Imipenem S<=1 Levofloxacin S<=1 Meropenem S<=1 Piperacillin/Tazobactam S<=8 Tetracycline S<=4 Tobramycin S<=1 Trimethoprim/Sulfa S<=2/38 Performed at: - [facility] [address] [facility] [address], [place], [place] [id number] Bandoleer Straightener Stamper: SIMON Mehta MD, Phone: [phone] Plan . continue steroids on exam much improved wheezing, continue antibiotics Chemo on hold for now, continue anticoagulation TITO ZAPATA MD Oct 04, 2018 09:21
--- NOTE | 2018-10-04 09:39 | PDOC ---
Infectious Disease Note Subjective: Subjective Pt is agitated does not verbalize much on 1:1 d/w RN had loose bm last night and small one today last c diff 3/ neg ROS: ROS Negative except for above. Vital Signs: Vital Signs Vital Signs Date Time Temp Pulse Resp B/P (MAP) Pulse Ox O2 Delivery O2 Flow Rate FiO2 10/04/18 08:17 97 Room Air 10/04/18 07:13 98.4 106 22 132/51 (78) 98.4 Physical Exam: PHYSICAL EXAM GENERAL: Alert, awake female, sitting, propped up in bed, in no acute distress. HEENT: Normocephalic and atraumatic. Poor dentition. No thrush. NECK: Supple, no lymphadenopathy. HEART: S1, S2. No murmurs. ABDOMEN: Soft, bowel sounds present, nontender, nondistended. Numerous surgical scars well healed. LUNGS: Decreased breath sounds at the bases, otherwise clear. EXTREMITIES: No edema, no cyanosis. GENITOURINARY: Mckin[place] in place. NEUROLOGIC: Alert, awake and confused. Moves all 4 extremities. DERM: Warm, dry. No generalized skin rash. Medications: Inpatient Meds: Current Medications Medications (Trade) Dose Ordered Sig/Ashli Start Time Stop Time Status Last Admin Dose Admin Acetaminophen (Tylenol) 650 mg PRN Q6HRS PRN 09/30/18 14:00 10/01/18 15:22 650 MG Albuterol/ Ipratropium (Duoneb) 3 ml RTQID 09/23/18 08:00 10/04/18 08:56 DC 10/04/18 08:16 3 ML Amitriptyline HCl (Elavil) 25 mg QHS 09/26/18 21:00 UNV Ceftriaxone Sodium (Rocephin) 1 gm 1X ONCE 09/22/18 17:30 09/22/18 17:30 DC Chlorhexidine Gluconate (Peridex) 15 ml BID 09/24/18 09:00 09/25/18 09:30 DC 09/24/18 21:41 15 ML Dextrose (Dextrose 50%-Water Syringe) 12.5 gm PRN Q15MIN PRN 09/25/18 09:30 Epinephrine HCl 4 mg/Sodium Chloride 254 ml @ 26.44 mls/ hr CONT PRN 09/23/18 02:15 09/27/18 15:53 DC Etomidate (Amidate) 20 mg STK-MED ONCE 09/22/18 20:36 09/22/18 20:37 DC Famotidine (Pepcid Vial) 20 mg QHS 09/25/18 21:00 10/01/18 11:50 DC 09/30/18 20:55 20 MG Famotidine (Pepcid) 20 mg QHS 10/01/18 21:00 10/03/18 20:46 20 MG Fentanyl Citrate 30 ml @ 0 mls/hr CONT PRN 09/23/18 22:30 09/27/18 15:53 DC 09/27/18 07:03 2.5 MLS/HR Fentanyl Citrate (Fentanyl 2ml Vial) 50 mcg PRN Q1HR PRN 09/22/18 23:30 10/02/18 07:55 DC 09/29/18 21:48 50 MCG Haloperidol (Haldol) 10 mg QHS 10/03/18 21:00 10/03/18 20:45 10 MG Haloperidol Lactate (Haldol Inj) 5 mg 1X ONCE 09/29/18 15:15 09/29/18 15:16 DC 09/29/18 15:15 5 MG Heparin Sodium (Porcine) (Heparin Sodium) 10,000 unit STK-MED ONCE 09/22/18 19:17 09/22/18 19:18 DC Info (Tpn Per Pharmacy) 1 each PRN DAILY PRN 09/24/18 08:15 10/03/18 13:47 1 EACH Insulin Human Lispro (HumaLOG) 0-5 UNITS Q6HRS 09/25/18 12:00 10/02/18 17:56 2 UNITS Lactobacillus Rhamnosus (Culturelle) 1 cap BID 10/01/18 21:00 10/04/18 08:05 1 CAP Lidocaine/Sodium Bicarbonate (Buffered Lidocaine 1%) 4 ml 1X ONCE 09/22/18 19:15 09/22/18 19:18 DC 09/22/18 19:15 4 ML Linezolid/Dextrose 300 ml @ 300 mls/hr Q12HR 09/25/18 13:00 09/28/18 17:06 DC 09/28/18 08:52 300 MLS/HR Lorazepam (Ativan) 0.5 mg TID 10/03/18 14:00 10/04/18 08:05 0.5 MG Magnesium Sulfate/ Dextrose 100 ml @ 100 mls/hr 1X ONCE 10/02/18 15:30 10/02/18 16:29 DC 10/02/18 17:18 100 MLS/HR Meropenem 1 gm/ Sodium Chloride 100 ml @ 200 mls/hr Q8HRS 10/03/18 14:00 10/04/18 06:25 200 MLS/HR Meropenem 500 mg/ Sodium Chloride 50 ml @ 100 mls/hr Q8HRS 10/01/18 14:00 10/03/18 12:38 DC 10/03/18 06:00 100 MLS/HR Micafungin Sodium 100 mg/Dextrose 100 ml @ 100 mls/hr Q24H 10/01/18 12:00 10/03/18 12:31 100 MLS/HR Midazolam HCl 100 ml @ 5 mls/hr CONT PRN 09/22/18 19:00 09/29/18 11:55 DC 09/25/18 19:41 5 MLS/HR Non-Formulary Medication (Desvenlafaxine Succinate (Pristiq Er)) 1 tab DAILY 09/27/18 09:00 UNV Norepinephrine Bitartrate 250 ml @ 1.875 mls/ hr CONT PRN 09/22/18 23:30 09/27/18 15:53 DC 09/24/18 12:54 3.75 MLS/HR Ondansetron HCl (Zofran) 4 mg PRN Q6HRS PRN 09/29/18 11:30 Pantoprazole Sodium (PROTONIX VIAL for IV PUSH) 40 mg DAILYAC 09/25/18 13:00 09/25/18 13:00 DC Pantoprazole Sodium 80 mg/ Sodium Chloride 100 ml @ 10 mls/hr Q10H 09/22/18 17:15 09/24/18 15:43 DC 09/24/18 05:46 10 MLS/HR Piperacillin Sod/ Tazobactam Sod (Zosyn Per Pharmacy) 1 each PRN DAILY PRN 09/22/18 17:30 10/03/18 11:06 DC Piperacillin Sod/ Tazobactam Sod 3.375 gm/Sodium Chloride 50 ml @ 100 mls/hr Q6HRS 09/23/18 00:00 10/01/18 11:20 DC 10/01/18 05:20 100 MLS/HR Potassium Chloride 15 meq/ Magnesium Sulfate 2.5 meq/Calcium Chloride 5 meq/ Bicarbonate Dialysis Soln w/ out KCl 5,011.6871 ml @ 1,000 mls/hr Q5H1M 09/24/18 04:30 09/24/18 17:00 DC 09/24/18 04:34 1,000 MLS/HR Potassium Chloride 15 meq/ Magnesium Sulfate 5 meq/Calcium Chloride 5 meq/ Bicarbonate Dialysis Soln w/ out KCl 5,012.3029 ml @ 1,000 mls/hr Q5H1M 09/23/18 20:30 09/24/18 04:06 DC 09/23/18 23:50 1,000 MLS/HR Potassium Chloride 35 meq/ Magnesium Sulfate 2.5 meq/Calcium Chloride 5 meq/ Bicarbonate Dialysis Soln w/ out KCl 5,021.6871 ml @ 1,000 mls/hr Q5H2M 09/24/18 04:30 09/24/18 17:00 DC 09/24/18 04:34 1,000 MLS/HR Potassium Chloride 35 meq/ Magnesium Sulfate 5 meq/Calcium Chloride 5 meq/ Bicarbonate Dialysis Soln w/ out KCl 5,022.3029 ml @ 1,000 mls/hr Q5H2M 09/23/18 20:30 09/24/18 04:06 DC 09/23/18 23:49 1,000 MLS/HR Potassium Chloride/Water 50 ml @ 50 mls/hr Q1H 09/25/18 09:00 09/25/18 10:59 DC 09/25/18 10:39 50 MLS/HR Rocuronium [place] (Zemuron) 50 mg STK-MED ONCE 09/22/18 20:36 09/22/18 20:37 DC Sodium Bicarbonate 150 meq/Sterile Water 1,150 ml @ 300 mls/hr Q3H50M 09/22/18 22:00 09/24/18 15:44 DC 09/24/18 05:45 300 MLS/HR Sodium Bicarbonate 40 meq/Potassium Chloride 15 meq/ Magnesium Sulfate 5 meq/Calcium Chloride 17.5 meq/ Bicarbonate Dialysis Soln w/ out KCl 5,061.2315 ml @ 1,000 mls/hr Q5H4M 09/23/18 10:00 09/23/18 10:33 DC 09/23/18 10:12 1,000 MLS/HR Sodium Bicarbonate 40 meq/Potassium Chloride 15 meq/ Magnesium Sulfate 5 meq/Calcium Chloride 2.5 meq/ Bicarbonate Dialysis Soln w/ out KCl 5,050.5172 ml @ 1,000 mls/hr Q5H4M 09/22/18 22:00 09/23/18 08:43 DC 09/23/18 05:02 1,000 MLS/HR Sodium Bicarbonate 40 meq/Potassium Chloride 15 meq/ Magnesium Sulfate 5 meq/Calcium Chloride 5 meq/ Bicarbonate Dialysis Soln w/ out KCl 5,052.3029 ml @ 1,000 mls/hr Q5H4M 09/23/18 10:45 09/23/18 19:28 DC 09/23/18 15:39 1,000 MLS/HR Sodium Acetate 45 meq/Potassium Acetate 25 meq/ Potassium Phosphate 13.6 mmol/Magnesium Sulfate 10 meq/ Calcium Gluconate 10 meq/ Multivitamins 10 ml/Chromium/ Copper/Manganese/ Seleni/Zn 1 ml/ Total Parenteral Nutrition/Amino Acids/Dextrose/ Fat Emulsion Intravenous 1,422 ml @ 59.25 mls/ hr TPN CONT 09/24/18 22:00 09/25/18 21:59 DC 09/24/18 22:50 59.25 MLS/HR Sodium Bicarbonate (Sodium Bicarb Adult 8.4% Syr) 50 meq 1X ONCE 09/22/18 17:45 09/22/18 17:46 DC 09/22/18 18:03 50 MEQ Sodium Chloride 30 meq/Sodium Acetate 10 meq/ Potassium Acetate 10 meq/Sodium Phosphate 13.6 mmol/Magnesium Sulfate 10 meq/ Calcium Gluconate 10 meq/ Multivitamins 10 ml/Chromium/ Copper/Manganese/ Seleni/Zn 1 ml/ Total Parenteral Nutrition/Amino Acids/Dextrose/ Fat Emulsion Intravenous 1,512 ml @ 63 mls/hr TPN CONT 10/03/18 22:00 10/04/18 21:59 10/03/18 20:47 63 MLS/HR Sodium Chloride 30 meq/Sodium Acetate 10 meq/ Potassium Acetate 35 meq/Potassium Phosphate 17 mmol/ Magnesium Sulfate 5 meq/Calcium Gluconate 10 meq/ Multivitamins 10 ml/Chromium/ Copper/Manganese/ Seleni/Zn 1 ml/ Total Parenteral Nutrition/Amino Acids/Dextrose/ Fat Emulsion Intravenous 1,512 ml @ 63 mls/hr TPN CONT 09/30/18 22:00 10/01/18 21:59 DC 09/30/18 20:56 63 MLS/HR Sodium Chloride 30 meq/Sodium Acetate 10 meq/ Potassium Acetate 35 meq/Potassium Phosphate 17 mmol/ Magnesium Sulfate 10 meq/Calcium Gluconate 10 meq/ Multivitamins 10 ml/Chromium/ Copper/Manganese/ Seleni/Zn 1 ml/ Total Parenteral Nutrition/Amino Acids/Dextrose/ Fat Emulsion Intravenous 1,512 ml @ 63 mls/hr TPN CONT 10/02/18 22:00 10/03/18 21:59 DC 10/02/18 22:21 63 MLS/HR Sodium Chloride 40 meq/Potassium Acetate 35 meq/ Potassium Phosphate 17 mmol/ Magnesium Sulfate 5 meq/Calcium Gluconate 10 meq/ Multivitamins 10 ml/Chromium/ Copper/Manganese/ Seleni/Zn 1 ml/ Total Parenteral Nutrition/Amino Acids/Dextrose/ Fat Emulsion Intravenous 1,512 ml @ 63 mls/hr TPN CONT 09/29/18 22:00 09/30/18 21:59 DC 09/29/18 21:18 63 MLS/HR Sodium Chloride 45 meq/Potassium Acetate 35 meq/ Potassium Phosphate 17 mmol/ Magnesium Sulfate 5 meq/Calcium Gluconate 10 meq/ Multivitamins 10 ml/Chromium/ Copper/Manganese/ Seleni/Zn 1 ml/ Total Parenteral Nutrition/Amino Acids/Dextrose/ Fat Emulsion Intravenous 1,512 ml @ 63 mls/hr TPN CONT 09/28/18 22:00 09/29/18 21:59 DC 09/28/18 23:00 63 MLS/HR Sodium Chloride 90 meq/Potassium Chloride 50 meq/ Potassium Phosphate 13.6 mmol/Magnesium Sulfate 10 meq/ Calcium Gluconate 10 meq/ Multivitamins 10 ml/Chromium/ Copper/Manganese/ Seleni/Zn 1 ml/ Total Parenteral Nutrition/Amino Acids/Dextrose/ Fat Emulsion Intravenous 87.0013 ml @ 3.625 mls/hr TPN CONT 09/24/18 22:00 09/25/18 21:59 UNV Sodium Phosphate 10 mmol/Dextrose 253.3333 ml @ 63.333 m... 1X ONCE 09/25/18 16:00 09/25/18 19:59 DC 09/25/18 16:16 63.333 MLS/HR Vancomycin HCl (Vanco Per Pharmacy) 1 each PRN DAILY PRN 10/01/18 11:30 10/03/18 12:42 DC 10/02/18 15:33 1 EACH Vancomycin HCl (Vancomycin Trough Level) 1 each 1X ONCE 10/03/18 14:30 10/03/18 14:30 DC Vancomycin HCl 1.75 gm/Sodium Chloride 500 ml @ 250 mls/hr 1X ONCE 10/01/18 12:00 10/01/18 13:59 DC 10/01/18 15:01 250 MLS/HR Vancomycin HCl 1 gm/Sodium Chloride 250 ml @ 250 mls/hr Q24H 10/02/18 15:00 10/03/18 12:38 DC 10/02/18 15:46 250 MLS/HR Vasopressin 40 unit/Dextrose 102 ml @ 6 mls/hr CONT PRN 09/22/18 18:45 09/27/18 15:12 DC 09/24/18 12:53 6 MLS/HR Labs: Lab Laboratory Tests Test 10/03/18 12:03 10/03/18 17:56 10/04/18 01:36 10/04/18 06:24 Glucose (Fingerstick) 138 mg/dL (70-99) 120 mg/dL (70-99) 109 mg/dL (70-99) 109 mg/dL (70-99) Test 10/04/18 06:30 Sodium Level 138 mmol/L (136-145) Potassium Level 4.9 mmol/L (3.5-5.1) Chloride Level 107 mmol/L (98-107) Carbon Dioxide Level 18 mmol/L (21-32) Anion Gap 13 (6-14) Blood Urea Nitrogen 19 mg/dL (7-20) Creatinine 0.7 mg/dL (0.6-1.0) Estimated GFR (Cockcroft-Gault) 84.2 Glucose Level 106 mg/dL (70-99) Calcium Level 8.7 mg/dL (8.5-10.1) Micro RUN DATE: 10/02/18 PAGE 1 RUN TIME: 8447 [facility] [address] [place] [address] Willam Stout M.D., Scrap Cutter PATIENT: ISABELL BUCIO ACCT: [id number] LOC: [address] [address] U : [id number] AGE/SX: 63/F ROOM: [facility] REG : 09/22/[address]: MILY COOK MD : 1955 BED: 1 DIS : STATUS: ADM IN TLOC: SPEC #: [id number] MAREN: 09/22/18 STATUS: COMP REQ #: [id number] RECD: 09/27/[address]: HALLIE ALLISON MD SOURCE: BLOOD ENTR: 09/27/18 [facility] DR: MILY COOK MD SPDESC: ELIANE CANADA MD, VENU S MD THOMPSON,DANIA Higgins MD ORDERED: IMAN [place] - LC Procedure Result BLOOD CULTURE LC Final Final report BLD CULT RESULT 1 Final Comment Steph winters ANTIMICROBIAL SUSCEPTIBILITY Final Comment S = Susceptible; I = Intermediate; R = Resistant P = Positive; N = Negative MICS are expressed in micrograms per mL Antibiotic RSLT#1 RSLT#2 RSLT#3 RSLT#4 Amikacin S<=4 Cefepime S<=2 Cefotaxime S<=2 Ceftazidime S<=2 Ceftriaxone S<=1 Ciprofloxacin S<=1 Gentamicin S<=1 Imipenem S<=1 Levofloxacin S<=1 Meropenem S<=1 Piperacillin/Tazobactam S<=8 Tetracycline S<=4 Tobramycin S<=1 Trimethoprim/Sulfa S<=2/38 Performed at: - [facility] [address], [place], [place] [id number] Contestant Coordinator: SIMON Mehta MD, Phone: [phone] Objective: Assessment: Febrile illness on zosyn 09/29/2018,pattern improving septic shock POA Brevundimonas diminuta bacteremia (PSAE) POA source likely GI, repeat BC neg CT abdo and pelvis in aug 2018 done,no abscess MARII,Metabolic acidosis resolved GI Bleed anemia thrombocytopenia Leucocytosis bipolar disorder Plan: Plan of Care cont merrem,was on zosyn dc micafungin repeat bc negn so far check cbc this am f/u c/s and labs monitor renal functions closely D/W LUKE DELCID MD Oct 04, 2018 09:39
[2018-10-04 09:53] LABS: BASO # 0.1 x10^3/uL (0.0-0.2); BASO % 1 % (0-3); EOS # 0.5 x10^3/uL (0.0-0.7); EOS % 4 % (0-3); HEMATOCRIT 29.7 % (36.0-47.0); HEMOGLOBIN 9.5 g/dL (12.0-15.5); LYMPH # 1.8 x10^3/uL (1.0-4.8); LYMPH % 15 % (24-48); MEAN CORPUSCULAR HEMOGLOBIN 30 pg (25-35); MEAN CORPUSCULAR HGB CONC 32 g/dL (31-37); MEAN CORPUSCULAR VOLUME 93 fL (79-100); MONO # 1.5 x10^3/uL (0.0-1.1); MONO % 12 % (0-9); NEUT # 8.1 x10^3uL (1.8-7.7); NEUT % 67 % (31-73); PLATELET COUNT 337 x10^3/uL (140-400); RED CELL DISTRIBUTION WIDTH 16.8 % (11.5-14.5)
[2018-10-04 11:00] VITALS: BP 182/76
[2018-10-04] MEDS: MICAFUNGIN 100 MG in IV DEXTROSE 5% 100ML 100 ML IV SCH (11:09)
--- NOTE | 2018-10-04 11:22 | PDOC ---
Subjective: Subjective: Up with therapy, trying to bite, calling names. Objective: Vital Signs: Vital Signs Date Time Temp Pulse Resp B/P (MAP) Pulse Ox O2 Delivery O2 Flow Rate FiO2 10/04/18 08:17 97 Room Air 10/04/18 07:13 98.4 106 22 132/51 (78) 98.4 Labs: Laboratory Tests Test 10/03/18 12:03 10/03/18 17:56 10/04/18 01:36 10/04/18 06:24 Glucose (Fingerstick) 138 mg/dL 120 mg/dL 109 mg/dL 109 mg/dL Test 10/04/18 06:30 White Blood Count 12.0 x10^3/uL Red Blood Count 3.20 x10^6/uL Hemoglobin 9.5 g/dL Hematocrit 29.7 % Mean Corpuscular Volume 93 fL Mean Corpuscular Hemoglobin 30 pg Mean Corpuscular Hemoglobin Concent 32 g/dL Red Cell Distribution Width 16.8 % Platelet Count 337 x10^3/uL Neutrophils (%) (Auto) 67 % Lymphocytes (%) (Auto) 15 % Monocytes (%) (Auto) 12 % Eosinophils (%) (Auto) 4 % Basophils (%) (Auto) 1 % Neutrophils # (Auto) 8.1 x10^3uL Lymphocytes # (Auto) 1.8 x10^3/uL Monocytes # (Auto) 1.5 x10^3/uL Eosinophils # (Auto) 0.5 x10^3/uL Basophils # (Auto) 0.1 x10^3/uL Sodium Level 138 mmol/L Potassium Level 4.9 mmol/L Chloride Level 107 mmol/L Carbon Dioxide Level 18 mmol/L Anion Gap 13 Blood Urea Nitrogen 19 mg/dL Creatinine 0.7 mg/dL Estimated GFR (Cockcroft-Gault) 84.2 Glucose Level 106 mg/dL Calcium Level 8.7 mg/dL PE: GEN: NAD, walking w/ staff NEURO/PSYCH: confused A/P: Encephalopathy Bacteremia - Brevundimonas diminuta Anemia - stable S/p gastric bypass -- Plans to DC to [facility] today. ZHOU BLANC Oct 04, 2018 11:22
--- NOTE | 2018-10-04 11:32 | NUR ---
SW following pt. SW attempted to reach pt's family, via phone: [phone] to discuss other LTAC options but phone is busy. Will attempt again later.
--- NOTE | 2018-10-04 14:36 | NUR ---
LILA following pt. LILA notified by Luci from [facility] that they are able to take pt today. LILA arranged transportation via [employer] at 1900. Orders faxed to [facility] and packet on chart. LILA left a voice mail to pt's family regarding dc plan. Discussed with RN.
[2018-10-04 14:59] VITALS: BP 129/90
--- NOTE | 2018-10-04 15:38 | NUR ---
LILA following pt. LILA notified by Luci at [facility], they are not able to take pt today as pt is 1:1 and they don't have staffing to accommodate 1:1. LILA cancelled transport and notified RN. LILA left a voice mail to [facility], regarding change of plan.
[2018-10-04 18:54] VITALS: BP 141/70
[2018-10-04] MEDS: TPN PER PHARMACY MC PRN (19:16)
--- NOTE | 2018-10-04 19:16 | NUR ---
Pharmacy TPN Dosing Note S: ISABELL BUCIO is a 63 year old F Currently receiving Central Continuous TPN started 09/24/18 B:Pertinent PMH: recent critical illness, continued poor PO intake Height: 5 feet, 0 inches Weight: 66.3 kg Current diet: DYSPHAGIA LABS: Sodium: 138 Potassium: 4.9 Chloride: 107 Calcium: 8.7 Corrected Calcium: 9.82 Magnesium: 1.9 CO2: 18 SCr: 0.7 Glucose: 106, 171, 130 Albumin: 2.6 AST: 80 ALT: 39 TPN FORMULA: TPN TYPE: Central Continuous AMINO ACIDS: 60 gm DEXTROSE: 225 gm LIPIDS: 20 gm SODIUM CHLORIDE: 30 mEq SODIUM ACETATE: 10 mEq SODIUM PHOSPHATE: 13.6 mmol POTASSIUM CHLORIDE: 10 mEq MAGNESIUM: 10 mEq CALCIUM: 10 mEq MULTIPLE VITAMIN: 10 ml TRACE ELEMENTS: MTE5 1ML TPN PLAN: -Serum potassium improved with KPhos removal. -Other electrolytes appear WNL and stable; continue TPN with no changes. -No Labs due electrolyte stability. R: Continue TPN @ current rate and above formula. Will monitor electrolytes, glucose, and tolerance to TPN. LISBET POLO [facility], 10/04/181916
[2018-10-04] MEDS: FAMOTIDINE 20 MG TABLET. PO SCH (21:59)
[2018-10-04] MEDS ORDERED: DEXTROSE 70% IV SCH ×11 (22:00)
[2018-10-04] MEDS ORDERED: TOTAL PARENTERAL NUTRITION IV SCH ×11 (22:00)
[2018-10-04] MEDS: HALOPERIDOL 5 MG TABLET. PO SCH (22:00)
[2018-10-04] MEDS ORDERED: AMINO ACID IV SCH ×11 (22:00)
[2018-10-04] MEDS ORDERED: [UNRECOGNIZED DRUG - OTHER] IV SCH ×11 (22:00)
[2018-10-05] VITALS (7 sets, daily range): BP systolic 124–158; BP diastolic 63–83
[2018-10-05] MEDS: MEROPENEM 1 GM in IV NORMAL SALINE 100ML 100 ML IV SCH ×3 (05:46→21:28)
[2018-10-05] MEDS: INSULIN LISPRO 300 UNITS/3 ML INSULN.PEN. SQ SCH ×4 (05:47→17:41)
--- NOTE | 2018-10-05 07:55 | PDOC ---
PROGRESS NOTES Subjective Subjective Patient sleeping soundly, not awakened for exam. Objective Objective Vital Signs Date Time Temp Pulse Resp B/P (MAP) Pulse Ox O2 Delivery O2 Flow Rate FiO2 10/05/18 07:12 Room Air 10/05/18 07:06 98.4 104 18 143/78 (99) 94 98.4 09/28/18 08:51 Intake and Output 10/05/18 06:59 Intake Total 320 ml Output Total 370 ml Balance -50 ml Intake Oral 320 ml Output Urine Total 200 ml Stool Total 170 ml # Voids 8 # Bowel Movements 4 Physical Exam Abdomen: Normal bowel sounds, Soft, No tenderness Heart: Regular rate Extremities: No edema General: No acute distress Lungs: Clear to auscultation Plan Plan of Care 1. Fever - resolved. Repeat cultures all negative to date. Now on Meropenem only per ID. 2. schizophrenia with metabolic encephalopathy - patient with increased agitation yesterday. Will try increasing Haldol and Ativan to help with this. 3. dysphagia - not taking much po. Continue TPN with Dysphagia diet, speech tx following. 4. debility - continue therapies as tolerated. Transfer to [facility] when bed available. Comment Review of Relevant I have reviewed the following items michelle (where applicable) has been applied. Labs Laboratory Tests Test 10/03/18 12:03 10/03/18 17:56 10/04/18 01:36 10/04/18 06:24 Glucose (Fingerstick) 138 mg/dL (70-99) 120 mg/dL (70-99) 109 mg/dL (70-99) 109 mg/dL (70-99) Test 10/04/18 06:30 10/04/18 11:59 10/04/18 18:10 10/05/18 01:08 White Blood Count 12.0 x10^3/uL (4.0-11.0) Red Blood Count 3.20 x10^6/uL (3.50-5.40) Hemoglobin 9.5 g/dL (12.0-15.5) Hematocrit 29.7 % (36.0-47.0) Mean Corpuscular Volume 93 fL (79-100) Mean Corpuscular Hemoglobin 30 pg (25-35) Mean Corpuscular Hemoglobin Concent 32 g/dL (31-37) Red Cell Distribution Width 16.8 % (11.5-14.5) Platelet Count 337 x10^3/uL (140-400) Neutrophils (%) (Auto) 67 % (31-73) Lymphocytes (%) (Auto) 15 % (24-48) Monocytes (%) (Auto) 12 % (0-9) Eosinophils (%) (Auto) 4 % (0-3) Basophils (%) (Auto) 1 % (0-3) Neutrophils # (Auto) 8.1 x10^3uL (1.8-7.7) Lymphocytes # (Auto) 1.8 x10^3/uL (1.0-4.8) Monocytes # (Auto) 1.5 x10^3/uL (0.0-1.1) Eosinophils # (Auto) 0.5 x10^3/uL (0.0-0.7) Basophils # (Auto) 0.1 x10^3/uL (0.0-0.2) Sodium Level 138 mmol/L (136-145) Potassium Level 4.9 mmol/L (3.5-5.1) Chloride Level 107 mmol/L (98-107) Carbon Dioxide Level 18 mmol/L (21-32) Anion Gap 13 (6-14) Blood Urea Nitrogen 19 mg/dL (7-20) Creatinine 0.7 mg/dL (0.6-1.0) Estimated GFR (Cockcroft-Gault) 84.2 Glucose Level 106 mg/dL (70-99) Calcium Level 8.7 mg/dL (8.5-10.1) Glucose (Fingerstick) 171 mg/dL (70-99) 130 mg/dL (70-99) 112 mg/dL (70-99) Test 10/05/18 05:28 Glucose (Fingerstick) 111 mg/dL (70-99) Laboratory Tests Test 10/04/18 11:59 10/04/18 18:10 10/05/18 01:08 10/05/18 05:28 Glucose (Fingerstick) 171 mg/dL (70-99) 130 mg/dL (70-99) 112 mg/dL (70-99) 111 mg/dL (70-99) Microbiology 10/01/18 Blood Culture - Preliminary, Resulted NO GROWTH AFTER 3 DAYS 09/25/18 - Final, Complete 09/25/18 - Final, Complete 09/25/18 - Final, Complete 09/25/18 Gram Stain Evaluation - Final, Complete 09/25/18 Sputum Culture - Final, Complete 09/25/18 Sputum Result 1 - Final, Complete 09/25/18 Sputum Result 2 - Final, Complete 10/01/18 Urine Culture - Final, Complete 10/01/18 Urine Culture Result 1 (MELODY) - Final, Complete Medications Current Medications Sodium Chloride 1,000 ml @ 1,000 mls/hr 1X ONCE IV Last administered on at 17:18; Start 09/22/18 at 17:15; Stop 09/22/18 at 18:14; Status DC Pantoprazole Sodium 80 mg/ Sodium Chloride 100 ml @ 10 mls/hr Q10H IV Last administered on 09/24/18at 05:46; Start 09/22/18 at 17:15; Stop 09/24/18 at 15:43 ; Status DC Pantoprazole Sodium (PROTONIX VIAL for IV PUSH) 80 mg 1X ONCE IVP Last administered on 09/22/18at 17:39; Start 09/22/18 at 17:15; Stop 09/22/18 at 17:17 ; Status DC Ceftriaxone Sodium (Rocephin) 1 gm 1X ONCE IVP ; Start 09/22/18 at 17:30; Stop 09/22/18 at 17:30; Status DC Sodium Chloride 1,000 ml @ 1,000 mls/hr 1X ONCE IV Last administered on at 17:27; Start 09/22/18 at 17:30; Stop 09/22/18 at 18:29; Status DC Vancomycin HCl (Vanco Per Pharmacy) 1 each PRN DAILY PRN MC SEE COMMENTS Last administered on 09/24/18at 21:37; Start 09/22/18 at 17:30; Stop 09/25/18 at 12:02 ; Status DC Piperacillin Sod/ Tazobactam Sod (Zosyn Per Pharmacy) 1 each PRN DAILY PRN MC SEE COMMENTS; Start 09/22/18 at 17:30; Stop 10/03/18 at 11:06; Status DC Piperacillin Sod/ Tazobactam Sod 3.375 gm/Sodium Chloride 50 ml @ 100 mls/hr 1X ONCE IV Last administered on 09/22/18at 18:04; Start 09/22/18 at 17:30; Stop 09/22/18 at 17:59; Status DC Vancomycin HCl 1.75 gm/Sodium Chloride 500 ml @ 250 mls/hr 1X ONCE IV Last administered on 09/22/18at 23:28; Start 09/22/18 at 17:30; Stop 09/22/18 at 19:29 ; Status DC Sodium Bicarbonate (Sodium Bicarb Adult 8.4% Syr) 50 meq 1X ONCE IV Last administered on 09/22/18at 18:03; Start 09/22/18 at 17:45; Stop 09/22/18 at 17:46 ; Status DC Norepinephrine Bitartrate 250 ml @ 0 mls/hr 1X ONCE IV Last administered on at 17:51; Start 09/22/18 at 17:45; Stop 09/22/18 at 17:46; Status DC Sodium Bicarbonate 150 meq/Sterile Water 1,150 ml @ 125 mls/hr 1X ONCE IV Last administered on 09/22/18at 18:30; Start 09/22/18 at 18:30; Stop 09/23/18 at 03:41; Status DC Piperacillin Sod/ Tazobactam Sod 3.375 gm/Sodium Chloride 50 ml @ 100 mls/hr Q6HRS IV Last administered on 10/01/18at 05:20; Start 09/23/18 at 00:00; Stop 10/01/18 at 11:20; Status DC Vasopressin 40 unit/Dextrose 102 ml @ 6 mls/hr CONT PRN IV SEE I/O RECORD Last administered on 09/24/18at 12:53; Start 09/22/18 at 18:45; Stop 09/27/18 at 15:12 ; Status DC Fentanyl Citrate (Fentanyl 2ml Vial) 50 mcg 1X ONCE IV ; Start 09/22/18 at 19: 00; Stop 09/22/18 at 19:01; Status DC Midazolam HCl 100 ml @ 5 mls/hr CONT PRN IV SEE I/O RECORD Last administered on 09/25/18at 19:41; Start 09/22/18 at 19:00; Stop 09/29/18 at 11:55; Status DC Lidocaine/Sodium Bicarbonate (Buffered Lidocaine 1%) 4 ml 1X ONCE INJ Last administered on 09/22/18at 19:15; Start 09/22/18 at 19:15; Stop 09/22/18 at 19:18 ; Status DC Heparin Sodium (Porcine) (Heparin Sodium) 2,500 unit 1X ONCE INT CAT Last administered on 09/22/18at 19:15; Start 09/22/18 at 19:15; Stop 09/22/18 at 19:18 ; Status DC Heparin Sodium (Porcine) (Heparin Sodium) 10,000 unit STK-MED ONCE .ROUTE ; Start 09/22/18 at 19:17; Stop 09/22/18 at 19:18; Status DC Sodium Bicarbonate 40 meq/Potassium Chloride 15 meq/ Magnesium Sulfate 5 meq/ Calcium Chloride 2.5 meq/ Bicarbonate Dialysis Soln w/ out KCl 5,050.5172 ml @ 1 ,000 mls/hr Q5H4M IV Last administered on 09/23/18at 05:02; Start 09/22/18 at 22 :00; Stop 09/23/18 at 08:43; Status DC Sodium Bicarbonate 40 meq/Potassium Chloride 15 meq/ Magnesium Sulfate 5 meq/ Calcium Chloride 2.5 meq/ Bicarbonate Dialysis Soln w/ out KCl 5,050.5172 ml @ 1 ,000 mls/hr Q5H4M IV Last administered on 09/23/18at 05:02; Start 09/22/18 at 22 :00; Stop 09/23/18 at 08:43; Status DC Sodium Bicarbonate 150 meq/Sterile Water 1,150 ml @ 300 mls/hr Q3H50M IV Last administered on 09/24/18at 05:45; Start 09/22/18 at 22:00; Stop 09/24/18 at 15:44 ; Status DC Etomidate (Amidate) 20 mg STK-MED ONCE IV ; Start 09/22/18 at 20:36; Stop at 20:37; Status DC Rocuronium [place] (Zemuron) 50 mg STK-MED ONCE .ROUTE ; Start 09/22/18 at 20:36 ; Stop 09/22/18 at 20:37; Status DC Norepinephrine Bitartrate 250 ml @ 1.875 mls/ hr CONT PRN IV SEE I/O RECORD Last administered on 09/24/18at 12:54; Start 09/22/18 at 23:30; Stop 09/27/18 at 15:53; Status DC Fentanyl Citrate (Fentanyl 2ml Vial) 50 mcg PRN Q1HR PRN IV PAIN Last administered on 09/29/18at 21:48; Start 09/22/18 at 23:30; Stop 10/02/18 at 07:55; Status DC Epinephrine HCl 4 mg/Sodium Chloride 254 ml @ 26.44 mls/ hr CONT PRN IV SEE I/ O RECORD; Start 09/23/18 at 02:15; Stop 09/27/18 at 15:53; Status DC Albuterol/ Ipratropium (Duoneb) 3 ml RTQID NEB Last administered on 10/04/18at 08 :16; Start 09/23/18 at 08:00; Stop 10/04/18 at 08:56; Status DC Sodium Bicarbonate 40 meq/Potassium Chloride 15 meq/ Magnesium Sulfate 5 meq/ Calcium Chloride 17.5 meq/ Bicarbonate Dialysis Soln w/ out KCl 5,061.2315 ml @ 1,000 mls/hr Q5H4M IV Last administered on 09/23/18at 10:13; Start 09/23/18 at 10:00; Stop 09/23/18 at 10:32; Status DC Sodium Bicarbonate 40 meq/Potassium Chloride 15 meq/ Magnesium Sulfate 5 meq/ Calcium Chloride 17.5 meq/ Bicarbonate Dialysis Soln w/ out KCl 5,061.2315 ml @ 1,000 mls/hr Q5H4M IV Last administered on 09/23/18at 10:12; Start 09/23/18 at 10:00; Stop 09/23/18 at 10:33; Status DC Sodium Bicarbonate 40 meq/Potassium Chloride 15 meq/ Magnesium Sulfate 5 meq/ Calcium Chloride 5 meq/ Bicarbonate Dialysis Soln w/ out KCl 5,052.3029 ml @ 1, 000 mls/hr Q5H4M IV Last administered on 09/23/18at 15:40; Start 09/23/18 at 11: 00; Stop 09/23/18 at 19:28; Status DC Sodium Bicarbonate 40 meq/Potassium Chloride 15 meq/ Magnesium Sulfate 5 meq/ Calcium Chloride 5 meq/ Bicarbonate Dialysis Soln w/ out KCl 5,052.3029 ml @ 1, 000 mls/hr Q5H4M IV Last administered on 09/23/18at 15:39; Start 09/23/18 at 10: 45; Stop 09/23/18 at 19:28; Status DC Vancomycin HCl 1 gm/Sodium Chloride 250 ml @ 250 mls/hr Q24H IV Last administered on 09/24/18at 21:38; Start 09/23/18 at 21:00; Stop 09/25/18 at 12:02 ; Status DC Vancomycin HCl (Vancomycin Trough Level) 1 each 1X ONCE MC Last administered on 09/24/18at 20:30; Start 09/24/18 at 20:30; Stop 09/24/18 at 20:31; Status DC Potassium Chloride 15 meq/ Magnesium Sulfate 5 meq/Calcium Chloride 5 meq/ Bicarbonate Dialysis Soln w/ out KCl 5,012.3029 ml @ 1,000 mls/hr Q5H1M IV Last administered on 09/23/18at 23:50; Start 09/23/18 at 20:30; Stop 09/24/18 at 04:06; Status DC Potassium Chloride 35 meq/ Magnesium Sulfate 5 meq/Calcium Chloride 5 meq/ Bicarbonate Dialysis Soln w/ out KCl 5,022.3029 ml @ 1,000 mls/hr Q5H2M IV Last administered on 09/23/18at 23:49; Start 09/23/18 at 20:30; Stop 09/24/18 at 04:06; Status DC Fentanyl Citrate 30 ml @ 0 mls/hr CONT PRN IV SEE PROTOCOL Last administered on 09/27/18at 07:03; Start 09/23/18 at 22:30; Stop 09/27/18 at 15:53; Status DC Chlorhexidine Gluconate (Peridex) 15 ml BID MM Last administered on 09/24/18at 21:41; Start 09/24/18 at 09:00; Stop 09/25/18 at 09:30; Status DC Potassium Chloride 15 meq/ Magnesium Sulfate 2.5 meq/Calcium Chloride 5 meq/ Bicarbonate Dialysis Soln w/ out KCl 5,011.6871 ml @ 1,000 mls/hr Q5H1M IV Last administered on 09/24/18at 04:34; Start 09/24/18 at 04:30; Stop 09/24/18 at 17:00; Status DC Potassium Chloride 35 meq/ Magnesium Sulfate 2.5 meq/Calcium Chloride 5 meq/ Bicarbonate Dialysis Soln w/ out KCl 5,021.6871 ml @ 1,000 mls/hr Q5H2M IV Last administered on 09/24/18at 04:34; Start 09/24/18 at 04:30; Stop 09/24/18 at 17:00; Status DC Sodium Chloride 90 meq/Potassium Chloride 50 meq/ Potassium Phosphate 13.6 mmol/ Magnesium Sulfate 10 meq/ Calcium Gluconate 10 meq/ Multivitamins 10 ml/Chromium / Copper/Manganese/ Seleni/Zn 1 ml/ Total Parenteral Nutrition/Amino Acids/ Dextrose/ Fat Emulsion Intravenous 87.0013 ml @ 3.625 mls/hr TPN CONT IV ; Start 09/24/18 at 22:00; Stop 09/25/18 at 21:59; Status UNV Info (Tpn Per Pharmacy) 1 each PRN DAILY PRN MC SEE COMMENTS Last administered on 10/04/18 19:16; Start 09/24/18 at 08:15 Sodium Acetate 45 meq/Potassium Acetate 25 meq/ Potassium Phosphate 13.6 mmol/ Magnesium Sulfate 10 meq/ Calcium Gluconate 10 meq/ Multivitamins 10 ml/Chromium / Copper/Manganese/ Seleni/Zn 1 ml/ Total Parenteral Nutrition/Amino Acids/ Dextrose/ Fat Emulsion Intravenous 1,422 ml @ 59.25 mls/ hr TPN CONT IV Last administered on 09/24/18at 22:50; Start 09/24/18 at 22:00; Stop 09/25/18 at 21:59 ; Status DC Potassium Chloride/Water 50 ml @ 50 mls/hr Q1H IV Last administered on at 10:39; Start 09/25/18 at 09:00; Stop 09/25/18 at 10:59; Status DC Insulin Human Lispro (HumaLOG) 0-5 UNITS Q6HRS SQ Last administered on at 17:56; Start 09/25/18 at 12:00 Dextrose (Dextrose 50%-Water Syringe) 12.5 gm PRN Q15MIN PRN IV SEE COMMENTS; Start 09/25/18 at 09:30 Famotidine (Pepcid Vial) 20 mg QHS IVP Last administered on 09/30/18at 20:55; Start 09/25/18 at 21:00; Stop 10/01/18 at 11:50; Status DC Linezolid/Dextrose 300 ml @ 300 mls/hr Q12HR IV Last administered on 09/28/18at 08:52; Start 09/25/18 at 13:00; Stop 09/28/18 at 17:06; Status DC Pantoprazole Sodium (PROTONIX VIAL for IV PUSH) 40 mg DAILYAC IVP ; Start at 13:00; Stop 09/25/18 at 13:00; Status DC Sodium Chloride 45 meq/Potassium Acetate 35 meq/ Potassium Phosphate 17 mmol/ Magnesium Sulfate 5 meq/Calcium Gluconate 10 meq/ Multivitamins 10 ml/Chromium/ Copper/Manganese/ Seleni/Zn 1 ml/ Total Parenteral Nutrition/Amino Acids/ Dextrose/ Fat Emulsion Intravenous 1,512 ml @ 63 mls/hr TPN CONT IV Last administered on 09/25/18at 22:10; Start 09/25/18 at 22:00; Stop 09/26/18 at 13:53 ; Status DC Sodium Phosphate 10 mmol/Dextrose 253.3333 ml @ 63.333 m... 1X ONCE IV Last administered on 09/25/18at 16:16; Start 09/25/18 at 16:00; Stop 09/25/18 at 19:59 ; Status DC Amitriptyline HCl (Elavil) 25 mg QHS PO ; Start 09/26/18 at 21:00; Status UNV Non-Formulary Medication (Desvenlafaxine Succinate (Pristiq Er)) 1 tab DAILY PO ; Start 09/27/18 at 09:00; Status UNV Haloperidol (Haldol) 10 mg HS PO Last administered on 09/26/18at 21:20; Start at 21:00; Stop 09/27/18 at 21:07; Status DC Sodium Chloride 45 meq/Potassium Acetate 35 meq/ Potassium Phosphate 17 mmol/ Magnesium Sulfate 5 meq/Calcium Gluconate 10 meq/ Multivitamins 10 ml/Chromium/ Copper/Manganese/ Seleni/Zn 1 ml/ Total Parenteral Nutrition/Amino Acids/ Dextrose/ Fat Emulsion Intravenous 1,512 ml @ 63 mls/hr TPN CONT IV ; Start at 22:00; Stop 09/27/18 at 21:59; Status Cancel Sodium Chloride 45 meq/Potassium Acetate 35 meq/ Potassium Phosphate 17 mmol/ Magnesium Sulfate 5 meq/Calcium Gluconate 10 meq/ Multivitamins 10 ml/Chromium/ Copper/Manganese/ Seleni/Zn 1 ml/ Total Parenteral Nutrition/Amino Acids/ Dextrose/ Fat Emulsion Intravenous 1,512 ml @ 63 mls/hr TPN CONT IV Last administered on 09/26/18at 21:31; Start 09/26/18 at 22:00; Stop 09/27/18 at 21:59 ; Status DC Lorazepam (Ativan) 0.5 mg PRN Q6HRS PRN PO ANXIETY / AGITATION Last administered on 09/30/18 20:54; Start 09/27/18 at 08:15; Stop 10/03/18 at 12:14; Status DC Sodium Chloride 45 meq/Potassium Acetate 35 meq/ Potassium Phosphate 17 mmol/ Magnesium Sulfate 5 meq/Calcium Gluconate 10 meq/ Multivitamins 10 ml/Chromium/ Copper/Manganese/ Seleni/Zn 1 ml/ Total Parenteral Nutrition/Amino Acids/ Dextrose/ Fat Emulsion Intravenous 1,512 ml @ 63 mls/hr TPN CONT IV Last administered on 09/27/18at 21:34; Start 09/27/18 at 22:00; Stop 09/28/18 at 21:59 ; Status DC Haloperidol Lactate (Haldol Inj) 10 mg HS IVP Last administered on 09/27/18at 21 :33; Start 09/27/18 at 22:00; Stop 09/28/18 at 07:58; Status DC Lorazepam (Ativan) 0.5 mg PRN Q6HRS PRN IV ANXIETY / AGITATION Last administered on 10/04/18 20:06; Start 09/27/18 at 21:15 Haloperidol (Haldol) 10 mg PRN QHS PRN PO AGITATION IF TAKING PO; Start at 21:15; Stop 09/28/18 at 08:02; Status DC Haloperidol (Haldol) 5 mg QHS PO Last administered on 10/02/18 22:20; Start 09/28/18 at 21:00; Stop 10/03/18 at 12:14; Status DC Sodium Chloride 45 meq/Potassium Acetate 35 meq/ Potassium Phosphate 17 mmol/ Magnesium Sulfate 5 meq/Calcium Gluconate 10 meq/ Multivitamins 10 ml/Chromium/ Copper/Manganese/ Seleni/Zn 1 ml/ Total Parenteral Nutrition/Amino Acids/ Dextrose/ Fat Emulsion Intravenous 1,512 ml @ 63 mls/hr TPN CONT IV Last administered on 09/28/18 23:00; Start 09/28/18 at 22:00; Stop 09/29/18 at 21:59; Status DC Ondansetron HCl (Zofran) 4 mg PRN Q6HRS PRN IV NAUSEA/VOMITING; Start 09/29/18 at 11:30 Sodium Chloride 40 meq/Potassium Acetate 35 meq/ Potassium Phosphate 17 mmol/ Magnesium Sulfate 5 meq/Calcium Gluconate 10 meq/ Multivitamins 10 ml/Chromium/ Copper/Manganese/ Seleni/Zn 1 ml/ Total Parenteral Nutrition/Amino Acids/ Dextrose/ Fat Emulsion Intravenous 1,512 ml @ 63 mls/hr TPN CONT IV Last administered on 09/29/18at 21:18; Start 09/29/18 at 22:00; Stop 09/30/18 at 21:59; Status DC Haloperidol Lactate (Haldol Inj) 5 mg 1X ONCE IM Last administered on 15:15; Start 09/29/18 at 15:15; Stop 09/29/18 at 15:16; Status DC Sodium Chloride 30 meq/Sodium Acetate 10 meq/ Potassium Acetate 35 meq/ Potassium Phosphate 17 mmol/ Magnesium Sulfate 5 meq/Calcium Gluconate 10 meq/ Multivitamins 10 ml/Chromium/ Copper/Manganese/ Seleni/Zn 1 ml/ Total Parenteral Nutrition/Amino Acids/Dextrose/ Fat Emulsion Intravenous 1,512 ml @ 63 mls/hr TPN CONT IV Last administered on 09/30/18at 20:56; Start 09/30/18 at 22 :00; Stop 10/01/18 at 21:59; Status DC Acetaminophen (Tylenol) 650 mg PRN Q6HRS PRN PO FEVER Last administered on 15:22; Start 09/30/18 at 14:00 Meropenem 500 mg/ Sodium Chloride 50 ml @ 100 mls/hr Q8HRS IV Last administered on 10/03/18at 06:00; Start 10/01/18 at 14:00; Stop 10/03/18 at 12:38; Status DC Vancomycin HCl (Vanco Per Pharmacy) 1 each PRN DAILY PRN MC SEE COMMENTS Last administered on 10/02/18at 15:33; Start 10/01/18 at 11:30; Stop 10/03/18 at 12:42; Status DC Micafungin Sodium 100 mg/Dextrose 100 ml @ 100 mls/hr Q24H IV Last administered on 10/04/18at 11:09; Start 10/01/18 at 12:00; Stop 10/04/18 at 18:51; Status DC Vancomycin HCl 1.75 gm/Sodium Chloride 500 ml @ 250 mls/hr 1X ONCE IV Last administered on 10/01/18 15:01; Start 10/01/18 at 12:00; Stop 10/01/18 at 13:59; Status DC Famotidine (Pepcid) 20 mg QHS PO Last administered on 10/04/18 21:59; Start 10/01/18 at 21:00 Sodium Chloride 30 meq/Sodium Acetate 10 meq/ Potassium Acetate 35 meq/ Potassium Phosphate 17 mmol/ Magnesium Sulfate 10 meq/Calcium Gluconate 10 meq/ Multivitamins 10 ml/Chromium/ Copper/Manganese/ Seleni/Zn 1 ml/ Total Parenteral Nutrition/Amino Acids/Dextrose/ Fat Emulsion Intravenous 1,512 ml @ 63 mls/hr TPN CONT IV Last administered on 10/01/18 22:10; Start 10/01/18 at 22 :00; Stop 10/02/18 at 21:59; Status DC Lactobacillus Rhamnosus (Culturelle) 1 cap BID PO Last administered on 21:59; Start 10/01/18 at 21:00 Vancomycin HCl 1 gm/Sodium Chloride 250 ml @ 250 mls/hr Q24H IV Last administered on 10/02/18 15:46; Start 10/02/18 at 15:00; Stop 10/03/18 at 12:38; Status DC Vancomycin HCl (Vancomycin Trough Level) 1 each 1X ONCE MC ; Start 10/03/18 at 14:30; Stop 10/03/18 at 14:30; Status DC Sodium Chloride 30 meq/Sodium Acetate 10 meq/ Potassium Acetate 35 meq/ Potassium Phosphate 17 mmol/ Magnesium Sulfate 10 meq/Calcium Gluconate 10 meq/ Multivitamins 10 ml/Chromium/ Copper/Manganese/ Seleni/Zn 1 ml/ Total Parenteral Nutrition/Amino Acids/Dextrose/ Fat Emulsion Intravenous 1,512 ml @ 63 mls/hr TPN CONT IV Last administered on 10/02/18 22:21; Start 10/02/18 at 22 :00; Stop 10/03/18 at 21:59; Status DC Magnesium Sulfate/ Dextrose 100 ml @ 100 mls/hr 1X ONCE IV Last administered on 10/02/18 17:18; Start 10/02/18 at 15:30; Stop 10/02/18 at 16:29; Status DC Haloperidol (Haldol) 10 mg QHS PO Last administered on 10/04/18at 22:00; Start at 21:00 Lorazepam (Ativan) 0.5 mg TID PO Last administered on 10/04/18at 21:59; Start 10/03/18 at 14:00 Meropenem 1 gm/ Sodium Chloride 100 ml @ 200 mls/hr Q8HRS IV Last administered on 10/05/18at 05:46; Start 10/03/18 at 14:00 Sodium Chloride 30 meq/Sodium Acetate 10 meq/ Potassium Acetate 10 meq/Sodium Phosphate 13.6 mmol/Magnesium Sulfate 10 meq/ Calcium Gluconate 10 meq/ Multivitamins 10 ml/Chromium/ Copper/Manganese/ Seleni/Zn 1 ml/ Total Parenteral Nutrition/Amino Acids/Dextrose/ Fat Emulsion Intravenous 1,512 ml @ 63 mls/hr TPN CONT IV Last administered on 10/03/18at 20:47; Start 10/03/18 at 22 :00; Stop 10/04/18 at 21:59; Status DC Sodium Chloride 30 meq/Sodium Acetate 10 meq/ Potassium Acetate 10 meq/Sodium Phosphate 13.6 mmol/Magnesium Sulfate 10 meq/ Calcium Gluconate 10 meq/ Multivitamins 10 ml/Chromium/ Copper/Manganese/ Seleni/Zn 1 ml/ Total Parenteral Nutrition/Amino Acids/Dextrose/ Fat Emulsion Intravenous 1,512 ml @ 63 mls/hr TPN CONT IV Last administered on 10/04/18 22:00; Start 10/04/18 at 22 :00; Stop 10/05/18 at 21:59 Active Scripts Active Reported [iron] 325 Mg PO Haloperidol 10 Mg Tablet 10 Mg PO QHS Ventolin Hfa Inhaler (Albuterol Sulfate) 18 Gm Hfa.aer.ad 2 Puff INH Q4HRS PRN Pristiq Er (Desvenlafaxine Succinate) 50 Mg Tab.er.24h 1 Tab PO DAILY Amitriptyline Hcl 25 Mg Tablet 1 Tab PO QHS Diazepam 5 Mg Tablet 5 Mg PO TID Gabapentin (Gabapentin) 300 Mg Capsule 300 Mg PO TID Vitals/I & O Vital Sign - Last 24 Hours 10/04/18 10/04/18 10/04/1819 08:17 11:00 14:59 18:54 Temp 98.6 99.3 98.3 98.6 99.3 98.3 Pulse 116 111 110 Resp 20 20 20 B/P (MAP) 182/76 (111) 129/90 (103) 141/70 (93) Pulse Ox 97 96 96 98 O2 Delivery Room Air Room Air Room Air Room Air 10/04/18 10/04/18 10/05/18 10/05/18 20:00 23:00 03:51 07:06 Temp 98.9 98.4 98.9 98.4 Pulse 101 104 Resp 20 20 18 B/P (MAP) 141/67 (91) 143/78 (99) Pulse Ox 98 94 O2 Delivery Room Air Room Air Room Air Room Air 10/05/18 07:12 O2 Delivery Room Air Intake and Output 10/04/18 10/04/18 10/05/18 14:59 22:59 06:59 Intake Total 120 ml 100 ml 100 ml Output Total 70 ml 300 ml Balance 50 ml -200 ml 100 ml MILY COOK MD Oct 05, 2018 07:55
[2018-10-05] MEDS ORDERED: MERO1VIA15 IV (08:01)
[2018-10-05] MEDS ORDERED: Tpn Per Pharmacy MC (08:01)
[2018-10-05] MEDS ORDERED: HALO5TAB PO (08:01)
[2018-10-05] MEDS: HALOPERIDOL 5 MG TABLET. PO SCH ×2 (08:12→20:19)
[2018-10-05] MEDS: LORazepam 1 MG TABLET PO SCH ×3 (08:12→20:19)
[2018-10-05] MEDS: LACTOBACILLUS RHAMNOSUS GG 1 CAPSULE. PO SCH ×2 (08:12→20:19)
--- NOTE | 2018-10-05 09:20 | PDOC ---
Infectious Disease Note Subjective: Subjective Pt sitting in chair does not verbalize much on 1:1 cont to remain restless and intermitently agitated po intake is poor d/w RN ROS: ROS Negative except for above. Vital Signs: Vital Signs Vital Signs Date Time Temp Pulse Resp B/P (MAP) Pulse Ox O2 Delivery O2 Flow Rate FiO2 10/05/18 07:12 Room Air 10/05/18 07:06 98.4 104 18 143/78 (99) 94 98.4 Physical Exam: PHYSICAL EXAM GENERAL: Alert, awake female, sitting, propped up in bed, in no acute distress. HEENT: Normocephalic and atraumatic. Poor dentition. No thrush. NECK: Supple, no lymphadenopathy. HEART: S1, S2. No murmurs. ABDOMEN: Soft, bowel sounds present, nontender, nondistended. Numerous surgical scars well healed. LUNGS: Decreased breath sounds at the bases, otherwise clear. EXTREMITIES: No edema, no cyanosis. GENITOURINARY: Mckinney in place. NEUROLOGIC: Alert, awake and confused. Moves all 4 extremities. DERM: Warm, dry. No generalized skin rash. Medications: Inpatient Meds: Current Medications Medications (Trade) Dose Ordered Sig/Ashli Start Time Stop Time Status Last Admin Dose Admin Acetaminophen (Tylenol) 650 mg PRN Q6HRS PRN 09/30/18 14:00 10/01/18 15:22 650 MG Albuterol/ Ipratropium (Duoneb) 3 ml RTQID 09/23/18 08:00 10/04/18 08:56 DC 10/04/18 08:16 3 ML Amitriptyline HCl (Elavil) 25 mg QHS 09/26/18 21:00 UNV Ceftriaxone Sodium (Rocephin) 1 gm 1X ONCE 09/22/18 17:30 09/22/18 17:30 DC Chlorhexidine Gluconate (Peridex) 15 ml BID 09/24/18 09:00 09/25/18 09:30 DC 09/24/18 21:41 15 ML Dextrose (Dextrose 50%-Water Syringe) 12.5 gm PRN Q15MIN PRN 09/25/18 09:30 Epinephrine HCl 4 mg/Sodium Chloride 254 ml @ 26.44 mls/ hr CONT PRN 09/23/18 02:15 09/27/18 15:53 DC Etomidate (Amidate) 20 mg STK-MED ONCE 09/22/18 20:36 09/22/18 20:37 DC Famotidine (Pepcid Vial) 20 mg QHS 09/25/18 21:00 10/01/18 11:50 DC 09/30/18 20:55 20 MG Famotidine (Pepcid) 20 mg QHS 10/01/18 21:00 10/04/18 21:59 20 MG Fentanyl Citrate 30 ml @ 0 mls/hr CONT PRN 09/23/18 22:30 09/27/18 15:53 DC 09/27/18 07:03 2.5 MLS/HR Fentanyl Citrate (Fentanyl 2ml Vial) 50 mcg PRN Q1HR PRN 09/22/18 23:30 10/02/18 07:55 DC 09/29/18 21:48 50 MCG Haloperidol (Haldol) 10 mg BID 10/05/18 09:00 10/05/18 08:12 10 MG Haloperidol Lactate (Haldol Inj) 5 mg 1X ONCE 09/29/18 15:15 09/29/18 15:16 DC 09/29/18 15:15 5 MG Heparin Sodium (Porcine) (Heparin Sodium) 10,000 unit STK-MED ONCE 09/22/18 19:17 09/22/18 19:18 DC Info (Tpn Per Pharmacy) 1 each PRN DAILY PRN 09/24/18 08:15 10/04/18 19:16 1 EACH Insulin Human Lispro (HumaLOG) 0-5 UNITS Q6HRS 09/25/18 12:00 10/02/18 17:56 2 UNITS Lactobacillus Rhamnosus (Culturelle) 1 cap BID 10/01/18 21:00 10/05/18 08:12 1 CAP Lidocaine/Sodium Bicarbonate (Buffered Lidocaine 1%) 4 ml 1X ONCE 09/22/18 19:15 09/22/18 19:18 DC 09/22/18 19:15 4 ML Linezolid/Dextrose 300 ml @ 300 mls/hr Q12HR 09/25/18 13:00 09/28/18 17:06 DC 09/28/18 08:52 300 MLS/HR Lorazepam (Ativan) 1 mg TID 10/05/18 09:00 10/05/18 08:12 1 MG Magnesium Sulfate/ Dextrose 100 ml @ 100 mls/hr 1X ONCE 10/02/18 15:30 10/02/18 16:29 DC 10/02/18 17:18 100 MLS/HR Meropenem 1 gm/ Sodium Chloride 100 ml @ 200 mls/hr Q8HRS 10/03/18 14:00 10/05/18 05:46 200 MLS/HR Meropenem 500 mg/ Sodium Chloride 50 ml @ 100 mls/hr Q8HRS 10/01/18 14:00 10/03/18 12:38 DC 10/03/18 06:00 100 MLS/HR Micafungin Sodium 100 mg/Dextrose 100 ml @ 100 mls/hr Q24H 10/01/18 12:00 10/04/18 18:51 DC 10/04/18 11:09 100 MLS/HR Midazolam HCl 100 ml @ 5 mls/hr CONT PRN 09/22/18 19:00 09/29/18 11:55 DC 09/25/18 19:41 5 MLS/HR Non-Formulary Medication (Desvenlafaxine Succinate (Pristiq Er)) 1 tab DAILY 09/27/18 09:00 UNV Norepinephrine Bitartrate 250 ml @ 1.875 mls/ hr CONT PRN 09/22/18 23:30 09/27/18 15:53 DC 09/24/18 12:54 3.75 MLS/HR Ondansetron HCl (Zofran) 4 mg PRN Q6HRS PRN 09/29/18 11:30 Pantoprazole Sodium (PROTONIX VIAL for IV PUSH) 40 mg DAILYAC 09/25/18 13:00 09/25/18 13:00 DC Pantoprazole Sodium 80 mg/ Sodium Chloride 100 ml @ 10 mls/hr Q10H 09/22/18 17:15 09/24/18 15:43 DC 09/24/18 05:46 10 MLS/HR Piperacillin Sod/ Tazobactam Sod (Zosyn Per Pharmacy) 1 each PRN DAILY PRN 09/22/18 17:30 10/03/18 11:06 DC Piperacillin Sod/ Tazobactam Sod 3.375 gm/Sodium Chloride 50 ml @ 100 mls/hr Q6HRS 09/23/18 00:00 10/01/18 11:20 DC 10/01/18 05:20 100 MLS/HR Potassium Chloride 15 meq/ Magnesium Sulfate 2.5 meq/Calcium Chloride 5 meq/ Bicarbonate Dialysis Soln w/ out KCl 5,011.6871 ml @ 1,000 mls/hr Q5H1M 09/24/18 04:30 09/24/18 17:00 DC 09/24/18 04:34 1,000 MLS/HR Potassium Chloride 15 meq/ Magnesium Sulfate 5 meq/Calcium Chloride 5 meq/ Bicarbonate Dialysis Soln w/ out KCl 5,012.3029 ml @ 1,000 mls/hr Q5H1M 09/23/18 20:30 09/24/18 04:06 DC 09/23/18 23:50 1,000 MLS/HR Potassium Chloride 35 meq/ Magnesium Sulfate 2.5 meq/Calcium Chloride 5 meq/ Bicarbonate Dialysis Soln w/ out KCl 5,021.6871 ml @ 1,000 mls/hr Q5H2M 09/24/18 04:30 09/24/18 17:00 DC 09/24/18 04:34 1,000 MLS/HR Potassium Chloride 35 meq/ Magnesium Sulfate 5 meq/Calcium Chloride 5 meq/ Bicarbonate Dialysis Soln w/ out KCl 5,022.3029 ml @ 1,000 mls/hr Q5H2M 09/23/18 20:30 09/24/18 04:06 DC 09/23/18 23:49 1,000 MLS/HR Potassium Chloride/Water 50 ml @ 50 mls/hr Q1H 09/25/18 09:00 09/25/18 10:59 DC 09/25/18 10:39 50 MLS/HR Rocuronium Basom (Zemuron) 50 mg STK-MED ONCE 09/22/18 20:36 09/22/18 20:37 DC Sodium Bicarbonate 150 meq/Sterile Water 1,150 ml @ 300 mls/hr Q3H50M 09/22/18 22:00 09/24/18 15:44 DC 09/24/18 05:45 300 MLS/HR Sodium Bicarbonate 40 meq/Potassium Chloride 15 meq/ Magnesium Sulfate 5 meq/Calcium Chloride 17.5 meq/ Bicarbonate Dialysis Soln w/ out KCl 5,061.2315 ml @ 1,000 mls/hr Q5H4M 09/23/18 10:00 09/23/18 10:33 DC 09/23/18 10:12 1,000 MLS/HR Sodium Bicarbonate 40 meq/Potassium Chloride 15 meq/ Magnesium Sulfate 5 meq/Calcium Chloride 2.5 meq/ Bicarbonate Dialysis Soln w/ out KCl 5,050.5172 ml @ 1,000 mls/hr Q5H4M 09/22/18 22:00 09/23/18 08:43 DC 09/23/18 05:02 1,000 MLS/HR Sodium Bicarbonate 40 meq/Potassium Chloride 15 meq/ Magnesium Sulfate 5 meq/Calcium Chloride 5 meq/ Bicarbonate Dialysis Soln w/ out KCl 5,052.3029 ml @ 1,000 mls/hr Q5H4M 09/23/18 10:45 09/23/18 19:28 DC 09/23/18 15:39 1,000 MLS/HR Sodium Acetate 45 meq/Potassium Acetate 25 meq/ Potassium Phosphate 13.6 mmol/Magnesium Sulfate 10 meq/ Calcium Gluconate 10 meq/ Multivitamins 10 ml/Chromium/ Copper/Manganese/ Seleni/Zn 1 ml/ Total Parenteral Nutrition/Amino Acids/Dextrose/ Fat Emulsion Intravenous 1,422 ml @ 59.25 mls/ hr TPN CONT 09/24/18 22:00 09/25/18 21:59 DC 09/24/18 22:50 59.25 MLS/HR Sodium Bicarbonate (Sodium Bicarb Adult 8.4% Syr) 50 meq 1X ONCE 09/22/18 17:45 09/22/18 17:46 DC 09/22/18 18:03 50 MEQ Sodium Chloride 30 meq/Sodium Acetate 10 meq/ Potassium Acetate 10 meq/Sodium Phosphate 13.6 mmol/Magnesium Sulfate 10 meq/ Calcium Gluconate 10 meq/ Multivitamins 10 ml/Chromium/ Copper/Manganese/ Seleni/Zn 1 ml/ Total Parenteral Nutrition/Amino Acids/Dextrose/ Fat Emulsion Intravenous 1,512 ml @ 63 mls/hr TPN CONT 10/04/18 22:00 10/05/18 21:59 10/04/18 22:00 63 MLS/HR Sodium Chloride 30 meq/Sodium Acetate 10 meq/ Potassium Acetate 35 meq/Potassium Phosphate 17 mmol/ Magnesium Sulfate 5 meq/Calcium Gluconate 10 meq/ Multivitamins 10 ml/Chromium/ Copper/Manganese/ Seleni/Zn 1 ml/ Total Parenteral Nutrition/Amino Acids/Dextrose/ Fat Emulsion Intravenous 1,512 ml @ 63 mls/hr TPN CONT 09/30/18 22:00 10/01/18 21:59 DC 09/30/18 20:56 63 MLS/HR Sodium Chloride 30 meq/Sodium Acetate 10 meq/ Potassium Acetate 35 meq/Potassium Phosphate 17 mmol/ Magnesium Sulfate 10 meq/Calcium Gluconate 10 meq/ Multivitamins 10 ml/Chromium/ Copper/Manganese/ Seleni/Zn 1 ml/ Total Parenteral Nutrition/Amino Acids/Dextrose/ Fat Emulsion Intravenous 1,512 ml @ 63 mls/hr TPN CONT 10/02/18 22:00 10/03/18 21:59 DC 10/02/18 22:21 63 MLS/HR Sodium Chloride 40 meq/Potassium Acetate 35 meq/ Potassium Phosphate 17 mmol/ Magnesium Sulfate 5 meq/Calcium Gluconate 10 meq/ Multivitamins 10 ml/Chromium/ Copper/Manganese/ Seleni/Zn 1 ml/ Total Parenteral Nutrition/Amino Acids/Dextrose/ Fat Emulsion Intravenous 1,512 ml @ 63 mls/hr TPN CONT 09/29/18 22:00 09/30/18 21:59 DC 09/29/18 21:18 63 MLS/HR Sodium Chloride 45 meq/Potassium Acetate 35 meq/ Potassium Phosphate 17 mmol/ Magnesium Sulfate 5 meq/Calcium Gluconate 10 meq/ Multivitamins 10 ml/Chromium/ Copper/Manganese/ Seleni/Zn 1 ml/ Total Parenteral Nutrition/Amino Acids/Dextrose/ Fat Emulsion Intravenous 1,512 ml @ 63 mls/hr TPN CONT 09/28/18 22:00 09/29/18 21:59 DC 09/28/18 23:00 63 MLS/HR Sodium Chloride 90 meq/Potassium Chloride 50 meq/ Potassium Phosphate 13.6 mmol/Magnesium Sulfate 10 meq/ Calcium Gluconate 10 meq/ Multivitamins 10 ml/Chromium/ Copper/Manganese/ Seleni/Zn 1 ml/ Total Parenteral Nutrition/Amino Acids/Dextrose/ Fat Emulsion Intravenous 87.0013 ml @ 3.625 mls/hr TPN CONT 09/24/18 22:00 09/25/18 21:59 UNV Sodium Phosphate 10 mmol/Dextrose 253.3333 ml @ 63.333 m... 1X ONCE 09/25/18 16:00 09/25/18 19:59 DC 09/25/18 16:16 63.333 MLS/HR Vancomycin HCl (Vanco Per Pharmacy) 1 each PRN DAILY PRN 10/01/18 11:30 10/03/18 12:42 DC 10/02/18 15:33 1 EACH Vancomycin HCl (Vancomycin Trough Level) 1 each 1X ONCE 10/03/18 14:30 10/03/18 14:30 DC Vancomycin HCl 1.75 gm/Sodium Chloride 500 ml @ 250 mls/hr 1X ONCE 10/01/18 12:00 10/01/18 13:59 DC 10/01/18 15:01 250 MLS/HR Vancomycin HCl 1 gm/Sodium Chloride 250 ml @ 250 mls/hr Q24H 10/02/18 15:00 10/03/18 12:38 DC 10/02/18 15:46 250 MLS/HR Vasopressin 40 unit/Dextrose 102 ml @ 6 mls/hr CONT PRN 09/22/18 18:45 09/27/18 15:12 DC 09/24/18 12:53 6 MLS/HR Labs: Lab Laboratory Tests Test 10/04/18 11:59 10/04/18 18:10 10/05/18 01:08 10/05/18 05:28 Glucose (Fingerstick) 171 mg/dL (70-99) 130 mg/dL (70-99) 112 mg/dL (70-99) 111 mg/dL (70-99) Micro RUN DATE: 10/02/18 PAGE 1 RUN TIME: 1714 [facility] [address] [place] [address] Willam Stout M.D., Curriculum Assistant PATIENT: ISABELL BUCIO ACCT: [id number] LOC: [address] [place] [address] U : [id number] AGE/SX: 63/F ROOM: 650 REG : 09/22/[address]: MILY COOK MD : 1955 BED: 1 DIS : STATUS: ADM IN TLOC: SPEC #: [id number] MAREN: 09/22/18 STATUS: COMP REQ #: [id number] RECD: 09/27/[address] [facility] [address]: HALLIE ALLISON MD SOURCE: BLOOD ENTR: 09/27/[address] [facility] [address]: MILY COOK [facility] ELIANE CANADA MD,MACKENZIE VELA,DANIA Higgins MD ORDERED: BLD CULT - LC Procedure Result BLOOD CULTURE LC Final Final report BLD CULT RESULT 1 Final Comment Bresammyundimonas diminuta ANTIMICROBIAL SUSCEPTIBILITY Final Comment S = Susceptible; I = Intermediate; R = Resistant P = Positive; N = Negative MICS are expressed in micrograms per mL Antibiotic RSLT#1 RSLT#2 RSLT#3 RSLT#4 Amikacin S<=4 Cefepime S<=2 Cefotaxime S<=2 Ceftazidime S<=2 Ceftriaxone S<=1 Ciprofloxacin S<=1 Gentamicin S<=1 Imipenem S<=1 Levofloxacin S<=1 Meropenem S<=1 Piperacillin/Tazobactam S<=8 Tetracycline S<=4 Tobramycin S<=1 Trimethoprim/Sulfa S<=2/38 Performed at: DA - [facility] [address] [facility] [address], [place], [place] [id number] Soil Field Technician: SIMON Mehta MD, Phone: [phone] Objective: Assessment: Febrile illness on zosyn 09/29/2018,pattern improving septic shock POA Brevundimonas diminuta bacteremia (PSAE) POA source likely GI, repeat BC neg CT abdo and pelvis in aug 2018 done,no abscess MARII,Metabolic acidosis resolved GI Bleed anemia thrombocytopenia Leucocytosis bipolar disorder Plan: Plan of Care cont merrem,was on zosyn prior to that repeat bc neg so far f/u c/s and labs monitor renal functions closely D/W LUKE DELCID MD Oct 05, 2018 09:20
--- NOTE | 2018-10-05 09:37 | NUR ---
SW following pt. [facility] reported [facility] are not able to take pt until Monday due to Staffing. Discussed with RN about other LTAC options. RN reported Physician wants to wait until Monday as pt's meds are also being adjusted. Will continue to follow.
--- NOTE | 2018-10-05 10:14 | PDOC ---
Objective: Objective: Per 1:1 obs - not eating much, possible transfer to [facility] today. Vital Signs: Vital Signs Date Time Temp Pulse Resp B/P (MAP) Pulse Ox O2 Delivery O2 Flow Rate FiO2 10/05/18 07:12 Room Air 10/05/18 07:06 98.4 104 18 143/78 (99) 94 98.4 Labs: \ Laboratory Tests Test 10/04/18 11:59 10/04/18 18:10 10/05/18 01:08 10/05/18 05:28 Glucose (Fingerstick) 171 mg/dL 130 mg/dL 112 mg/dL 111 mg/dL BLOOD CULTURE Preliminary NO GROWTH AFTER 3 DAYS PE: GEN: NAD NEURO/PSYCH: sleeping, not awakened A/P: Encephalopathy, h/o schizophrenia Anemia - stable -- Awaiting discharge. ZHOU BLANC Oct 05, 2018 10:14
--- NOTE | 2018-10-05 10:23 | PDOC ---
PULMONARY PROGRESS NOTES Subjective Patient not more SOA Vitals Vital Signs Date Time Temp Pulse Resp B/P (MAP) Pulse Ox O2 Delivery O2 Flow Rate FiO2 10/05/18 07:12 Room Air 10/05/18 07:06 98.4 104 18 143/78 (99) 94 98.4 General: Alert Lungs: Clear, Other (decrease bs) Cardiovascular: S1, S2 Abdomen: Soft, Non-tender Neuro Exam: Alert Extremities: Other (1+edema) Labs Laboratory Tests Test 10/03/18 12:03 10/03/18 17:56 10/04/18 01:36 10/04/18 06:24 Glucose (Fingerstick) 138 mg/dL (70-99) 120 mg/dL (70-99) 109 mg/dL (70-99) 109 mg/dL (70-99) Test 10/04/18 06:30 10/04/18 11:59 10/04/18 18:10 10/05/18 01:08 White Blood Count 12.0 x10^3/uL (4.0-11.0) Red Blood Count 3.20 x10^6/uL (3.50-5.40) Hemoglobin 9.5 g/dL (12.0-15.5) Hematocrit 29.7 % (36.0-47.0) Mean Corpuscular Volume 93 fL (79-100) Mean Corpuscular Hemoglobin 30 pg (25-35) Mean Corpuscular Hemoglobin Concent 32 g/dL (31-37) Red Cell Distribution Width 16.8 % (11.5-14.5) Platelet Count 337 x10^3/uL (140-400) Neutrophils (%) (Auto) 67 % (31-73) Lymphocytes (%) (Auto) 15 % (24-48) Monocytes (%) (Auto) 12 % (0-9) Eosinophils (%) (Auto) 4 % (0-3) Basophils (%) (Auto) 1 % (0-3) Neutrophils # (Auto) 8.1 x10^3uL (1.8-7.7) Lymphocytes # (Auto) 1.8 x10^3/uL (1.0-4.8) Monocytes # (Auto) 1.5 x10^3/uL (0.0-1.1) Eosinophils # (Auto) 0.5 x10^3/uL (0.0-0.7) Basophils # (Auto) 0.1 x10^3/uL (0.0-0.2) Sodium Level 138 mmol/L (136-145) Potassium Level 4.9 mmol/L (3.5-5.1) Chloride Level 107 mmol/L (98-107) Carbon Dioxide Level 18 mmol/L (21-32) Anion Gap 13 (6-14) Blood Urea Nitrogen 19 mg/dL (7-20) Creatinine 0.7 mg/dL (0.6-1.0) Estimated GFR (Cockcroft-Gault) 84.2 Glucose Level 106 mg/dL (70-99) Calcium Level 8.7 mg/dL (8.5-10.1) Glucose (Fingerstick) 171 mg/dL (70-99) 130 mg/dL (70-99) 112 mg/dL (70-99) Test 10/05/18 05:28 Glucose (Fingerstick) 111 mg/dL (70-99) Laboratory Tests Test 10/04/18 11:59 10/04/18 18:10 10/05/18 01:08 10/05/18 05:28 Glucose (Fingerstick) 171 mg/dL (70-99) 130 mg/dL (70-99) 112 mg/dL (70-99) 111 mg/dL (70-99) Medications Active Scripts Medications Dose Route/Sig Max Daily Dose Days Date Category [iron] 325 Mg PO 09/23/18 Reported Haloperidol 10 Mg Tablet 10 Mg PO QHS 09/23/18 Reported Ventolin Hfa Inhaler (Albuterol Sulfate) 18 Gm Hfa.aer.ad 2 Puff INH Q4HRS PRN 07/04/18 Reported Pristiq Er (Desvenlafaxine Succinate) 50 Mg Tab.er.24h 1 Tab PO DAILY 07/01/18 Reported Amitriptyline Hcl 25 Mg Tablet 1 Tab PO QHS 07/01/18 Reported Diazepam 5 Mg Tablet 5 Mg PO TID 07/01/18 Reported Gabapentin (Gabapentin) 300 Mg Capsule 300 Mg PO TID 07/01/18 Reported Impression . 1. Acute respiratory failure, multifactorial in etiology including shock, acute kidney injury 2. SEPTIC SHOCK 3. Abnormal CT of the chest with left lower lobe dense atelectasis/ PNEUMONIA 4. Acute kidney injury. 5. Electrolyte abnormality. 6. Gastrointestinal bleeding. 7. Hypotension. 8. Severe metabolic acidosis secondary to shock and acute kidney injury 9. FEVER PER ID BLOOD CULTURE LC Final Final report BLD CULT RESULT 1 Final Comment Brevundimonas diminuta ANTIMICROBIAL SUSCEPTIBILITY Final Comment S = Susceptible; I = Intermediate; R = Resistant P = Positive; N = Negative MICS are expressed in micrograms per mL Antibiotic RSLT#1 RSLT#2 RSLT#3 RSLT#4 Amikacin S<=4 Cefepime S<=2 Cefotaxime S<=2 Ceftazidime S<=2 Ceftriaxone S<=1 Ciprofloxacin S<=1 Gentamicin S<=1 Imipenem S<=1 Levofloxacin S<=1 Meropenem S<=1 Piperacillin/Tazobactam S<=8 Tetracycline S<=4 Tobramycin S<=1 Trimethoprim/Sulfa S<=2/38 Performed at: DA - [facility] [address] [facility] [address], [place], [place] [id number] Claims Account Specialist: SIMON Mehta MD, Phone: [phone] Plan . AWAITING PLACEMENT continue antibiotics PER ID TITO ZAPATA MD Oct 05, 2018 10:23
[2018-10-05] MEDS: TPN PER PHARMACY MC PRN (11:40)
--- NOTE | 2018-10-05 11:45 | NUR ---
Pharmacy TPN Dosing Note S: ISABELL BUCIO is a 63 year old F Currently receiving Central Continuous TPN started 09/24/18 B:Pertinent PMH: recent critical illness, continued poor po intake Height: 5 feet, 0 inches Weight: 66.465857 kg Current diet: DYSPHAGIA LABS: Sodium: 138 (3/7) Potassium: 4.9 (3/7) Chloride: 107 (3/7) Calcium: 8.7 (3/7) Corrected Calcium: 9.82 Magnesium: 1.9 (3/6) CO2: 18 (3/7) SCr: 0.7 (3/7) Glucose: 111-112 Albumin: 2.6 (09/23) AST: 80 (09/23) ALT: 39 (09/23) TPN FORMULA: TPN TYPE: Central Continuous AMINO ACIDS: 60 gm DEXTROSE: 225 gm LIPIDS: 20 gm SODIUM CHLORIDE: 30 mEq SODIUM ACETATE: 10 mEq SODIUM PHOSPHATE: 13.6 mmol POTASSIUM CHLORIDE: - mEq POTASSIUM ACETATE: 10 mEq POTASSIUM PHOSPHATE: - mmol MAGNESIUM: 10 mEq CALCIUM: 10 mEq INSULIN: - units MULTIPLE VITAMIN: 10 ml TRACE ELEMENTS: MTE5 1ML ml(s) TPN PLAN: -No labs drawn today due electrolyte stability per note yesterday. -For this reason will not make any adjustments to TPN today. -BMP, Mag, Phos ordered for 10/06/18. R: Continue current TPN today. No changes at this time. Will monitor electrolytes, glucose, and tolerance to TPN. CRISTINA BELL, [facility], 10/05/18 [id number]
[2018-10-05] MEDS: FAMOTIDINE 20 MG TABLET. PO SCH (20:18)
[2018-10-05] MEDS ORDERED: [UNRECOGNIZED DRUG - OTHER] IV SCH ×11 (22:00)
[2018-10-05] MEDS ORDERED: AMINO ACID IV SCH ×11 (22:00)
[2018-10-05] MEDS ORDERED: TOTAL PARENTERAL NUTRITION IV SCH ×11 (22:00)
[2018-10-05] MEDS ORDERED: DEXTROSE 70% IV SCH ×11 (22:00)
[2018-10-06 03:00] VITALS: BP 118/64
[2018-10-06] MEDS: MEROPENEM 1 GM in IV NORMAL SALINE 100ML 100 ML IV SCH ×3 (05:41→22:11)
[2018-10-06] MEDS: INSULIN LISPRO 300 UNITS/3 ML INSULN.PEN. SQ SCH ×5 (05:45→23:39)
[2018-10-06 06:20] LABS: CALCIUM 8.5 mg/dL (8.5-10.1); CREATININE 0.7 mg/dL (0.6-1.0); GFR 84.2; MAGNESIUM 1.9 mg/dL (1.8-2.4); POTASSIUM 4.2 mmol/L (3.5-5.1)
[2018-10-06 07:11] VITALS: BP 120/88
[2018-10-06] MEDS: LACTOBACILLUS RHAMNOSUS GG 1 CAPSULE. PO SCH ×2 (09:20→20:19)
[2018-10-06] MEDS: HALOPERIDOL 5 MG TABLET. PO SCH ×2 (09:20→20:19)
[2018-10-06] MEDS: LORazepam 1 MG TABLET PO SCH ×3 (09:21→20:19)
--- NOTE | 2018-10-06 09:26 | PDOC ---
PULMONARY PROGRESS NOTES Subjective confused, appears comfortable Vitals Vital Signs Date Time Temp Pulse Resp B/P (MAP) Pulse Ox O2 Delivery O2 Flow Rate FiO2 10/06/18 08:17 Room Air 2.0 10/06/18 07:11 98.7 95 18 120/88 (99) 97 98.7 General: Confused Lungs: Other (decrease bs) Cardiovascular: S1, S2 Abdomen: Soft, Non-tender Neuro Exam: Alert Extremities: Other (1+edema) Skin: Warm Labs Laboratory Tests Test 10/04/18 11:59 10/04/18 18:10 10/05/18 01:08 10/05/18 05:28 Glucose (Fingerstick) 171 mg/dL (70-99) 130 mg/dL (70-99) 112 mg/dL (70-99) 111 mg/dL (70-99) Test 10/05/18 11:58 10/05/18 17:29 10/06/18 00:34 10/06/18 05:40 Glucose (Fingerstick) 133 mg/dL (70-99) 165 mg/dL (70-99) 122 mg/dL (70-99) Sodium Level 141 mmol/L (136-145) Potassium Level 4.2 mmol/L (3.5-5.1) Chloride Level 109 mmol/L (98-107) Carbon Dioxide Level 20 mmol/L (21-32) Anion Gap 12 (6-14) Blood Urea Nitrogen 20 mg/dL (7-20) Creatinine 0.7 mg/dL (0.6-1.0) Estimated GFR (Cockcroft-Gault) 84.2 Glucose Level 103 mg/dL (70-99) Calcium Level 8.5 mg/dL (8.5-10.1) Phosphorus Level 4.0 mg/dL (2.6-4.7) Magnesium Level 1.9 mg/dL (1.8-2.4) Test 10/06/18 05:42 Glucose (Fingerstick) 99 mg/dL (70-99) Laboratory Tests Test 10/05/18 11:58 10/05/18 17:29 10/06/18 00:34 10/06/18 05:40 Glucose (Fingerstick) 133 mg/dL (70-99) 165 mg/dL (70-99) 122 mg/dL (70-99) Sodium Level 141 mmol/L (136-145) Potassium Level 4.2 mmol/L (3.5-5.1) Chloride Level 109 mmol/L (98-107) Carbon Dioxide Level 20 mmol/L (21-32) Anion Gap 12 (6-14) Blood Urea Nitrogen 20 mg/dL (7-20) Creatinine 0.7 mg/dL (0.6-1.0) Estimated GFR (Cockcroft-Gault) 84.2 Glucose Level 103 mg/dL (70-99) Calcium Level 8.5 mg/dL (8.5-10.1) Phosphorus Level 4.0 mg/dL (2.6-4.7) Magnesium Level 1.9 mg/dL (1.8-2.4) Test 10/06/18 05:42 Glucose (Fingerstick) 99 mg/dL (70-99) Medications Active Scripts Medications Dose Route/Sig Max Daily Dose Days Date Category [iron] 325 Mg PO 09/23/18 Reported Haloperidol 10 Mg Tablet 10 Mg PO QHS 09/23/18 Reported Ventolin Hfa Inhaler (Albuterol Sulfate) 18 Gm Hfa.aer.ad 2 Puff INH Q4HRS PRN 07/04/18 Reported Pristiq Er (Desvenlafaxine Succinate) 50 Mg Tab.er.24h 1 Tab PO DAILY 07/01/18 Reported Amitriptyline Hcl 25 Mg Tablet 1 Tab PO QHS 07/01/18 Reported Diazepam 5 Mg Tablet 5 Mg PO TID 07/01/18 Reported Gabapentin (Gabapentin) 300 Mg Capsule 300 Mg PO TID 07/01/18 Reported Impression . 1. Acute respiratory failure, multifactorial in etiology including shock, acute kidney injury 2. SEPTIC SHOCK 3. Abnormal CT of the chest with left lower lobe dense atelectasis/ PNEUMONIA 4. Acute kidney injury. 5. Electrolyte abnormality. 6. Gastrointestinal bleeding. 7. Hypotension. resolved 8. Severe metabolic acidosis secondary to shock and acute kidney injury 9. FEVER, resolved BLOOD CULTURE LC Final Final report BLD CULT RESULT 1 Final Comment Brevundimonas diminuta ANTIMICROBIAL SUSCEPTIBILITY Final Comment S = Susceptible; I = Intermediate; R = Resistant P = Positive; N = Negative MICS are expressed in micrograms per mL Antibiotic RSLT#1 RSLT#2 RSLT#3 RSLT#4 Amikacin S<=4 Cefepime S<=2 Cefotaxime S<=2 Ceftazidime S<=2 Ceftriaxone S<=1 Ciprofloxacin S<=1 Gentamicin S<=1 Imipenem S<=1 Levofloxacin S<=1 Meropenem S<=1 Piperacillin/Tazobactam S<=8 Tetracycline S<=4 Tobramycin S<=1 Trimethoprim/Sulfa S<=2/38 Performed at: DA - [facility] [address] [place] [address] [address], [place], [place] [id number] Sanitation Supervisor: SIMON Mehta MD, Phone: [phone] Plan . AWAITING PLACEMENT continue antibiotics PER ID elevate hob avoid oversedation discussed w ELIANE Jerez MD Oct 06, 2018 09:26
--- NOTE | 2018-10-06 09:28 | PDOC ---
Infectious Disease Note Subjective Subjective 1:1 observation, confused and combative no fevers, vomiting or diarrhea reported TPN ROS ROS unobtainable Vital Sign Vital Signs Vital Signs Date Time Temp Pulse Resp B/P (MAP) Pulse Ox O2 Delivery O2 Flow Rate FiO2 10/06/18 08:17 Room Air 2.0 10/06/18 07:11 98.7 95 18 120/88 (99) 97 98.7 Physical Exam PHYSICAL EXAM GENERAL: Sleeping HEENT: Poor dentition. No thrush. NECK: Supple LUNGS: Decreased breath sounds at the bases, otherwise clear. HEART: S1, S2. No murmurs. ABDOMEN: Soft, bowel sounds present, nontender, nondistended. Numerous surgical scars well healed. GENITOURINARY: Mckinney in place. EXTREMITIES: No edema, no cyanosis. NEUROLOGIC: Arouses to voice, confused DERM: Warm, dry. No generalized skin rash. LUE-PICC clean Labs Lab Laboratory Tests Test 10/05/18 11:58 10/05/18 17:29 10/06/18 00:34 10/06/18 05:40 Glucose (Fingerstick) 133 mg/dL (70-99) 165 mg/dL (70-99) 122 mg/dL (70-99) Sodium Level 141 mmol/L (136-145) Potassium Level 4.2 mmol/L (3.5-5.1) Chloride Level 109 mmol/L (98-107) Carbon Dioxide Level 20 mmol/L (21-32) Anion Gap 12 (6-14) Blood Urea Nitrogen 20 mg/dL (7-20) Creatinine 0.7 mg/dL (0.6-1.0) Estimated GFR (Cockcroft-Gault) 84.2 Glucose Level 103 mg/dL (70-99) Calcium Level 8.5 mg/dL (8.5-10.1) Phosphorus Level 4.0 mg/dL (2.6-4.7) Magnesium Level 1.9 mg/dL (1.8-2.4) Test 10/06/18 05:42 Glucose (Fingerstick) 99 mg/dL (70-99) Micro 10/01. BLOOD CULTURE Preliminary NO GROWTH AFTER 4 DAYS 10/01. URINE CULTURE RES 1 Final No growth Objective Assessment Febrile illness - pattern improved Septic shock POA Brevundimonas diminuta bacteremia (PSAE) POA 09/22, source likely GI, UA neg. repeat BC 10/01 NGTD - CT abdo and pelvis in aug 2018 done, no abscess MARII and Metabolic acidosis resolved GI Bleed Anemia Thrombocytopenia Leucocytosis Bipolar disorder Positive MRSA nares Plan Plan of Care cont Merrem, was on Zosyn prior to that repeat BC from 10/01 neg so far f/u c/s and labs D/w RN Patient seen, examined, I agree with above. Assessment and plan was coformulated with SUPERVISOR FIREARMS. LUCAS ABARCA APRN Oct 06, 2018 09:28 LUKE VERDIN MD Oct 06, 2018 15:30
[2018-10-06 11:17] VITALS: BP 121/88
[2018-10-06] MEDS: TPN PER PHARMACY MC PRN (13:31)
--- NOTE | 2018-10-06 13:40 | NUR ---
Pharmacy TPN Dosing Note S: ISABELL BUCIO is a 63 year old F Currently receiving Central Continuous TPN started 09/24/18 B:Pertinent PMH: recent critical illness, continued poor po intake Height: 5 feet, 0 inches Weight: 66.3 kg Current diet: DYSPHAGIA LABS: Sodium: 141 Potassium: 4.2 Chloride: 109 Calcium: 8.5 Corrected Calcium: 9.62 Magnesium: 1.9 CO2: 20 SCr: 0.7 Glucose: 99-165 Albumin: 2.6 AST: 80 (09/23) ALT: 39 (09/23) TPN FORMULA: TPN TYPE: Central Continuous AMINO ACIDS: 60 gm DEXTROSE: 225 gm LIPIDS: 20 gm SODIUM CHLORIDE: 20 mEq SODIUM ACETATE: 20 mEq SODIUM PHOSPHATE: 13.6 mmol POTASSIUM ACETATE: 10 mEq MAGNESIUM: 10 mEq CALCIUM: 10 mEq MULTIPLE VITAMIN: 10 ml TRACE ELEMENTS: MTE5 1ML TPN PLAN: Some sodium chloride converted to sodium acetate. Labs ordered for Monday AM. R: Change TPN per plan and ordered formula Will monitor electrolytes, glucose, and tolerance to TPN. Alysia Flowers FORMERLY [facility], 10/06/18 [id number]
--- NOTE | 2018-10-06 13:46 | PDOC ---
PROGRESS NOTES Subjective Subjective Patient talking to herself, does briefly answer questions and engage in conversation. Objective Objective Vital Signs Date Time Temp Pulse Resp B/P (MAP) Pulse Ox O2 Delivery O2 Flow Rate FiO2 10/06/18 11:17 98.8 85 18 121/88 (99) 97 Room Air 98.8 10/06/18 08:17 2.0 Intake and Output 10/06/18 07:00 Intake Total 520 ml Balance 520 ml Intake Oral 520 ml # Voids 4 Physical Exam Abdomen: Normal bowel sounds, Soft, No tenderness Heart: Regular rate Extremities: No edema General: Alert, No acute distress Lungs: Clear to auscultation Plan Plan of Care 1. Bacteremia - stable, afebrile. Repeat blood cultures negative to date. Continue Meropenem per ID. 2. dysphagia - taking little po, continue TPN and Dysphagia diet per speech tx. 3. schizophrenia with metabolic encephalopathy - mild improvement, was able to cooperate with PT yesterday. Continue Haldol and Ativan. Continue 1 to 1 for safety. 4. debility - continue therapies. Hope to transfer to [facility] Monday. Comment Review of Relevant I have reviewed the following items michelle (where applicable) has been applied. Labs Laboratory Tests Test 10/04/18 18:10 10/05/18 01:08 10/05/18 05:28 10/05/18 11:58 Glucose (Fingerstick) 130 mg/dL (70-99) 112 mg/dL (70-99) 111 mg/dL (70-99) 133 mg/dL (70-99) Test 10/05/18 17:29 10/06/18 00:34 10/06/18 05:40 10/06/18 05:42 Glucose (Fingerstick) 165 mg/dL (70-99) 122 mg/dL (70-99) 99 mg/dL (70-99) Sodium Level 141 mmol/L (136-145) Potassium Level 4.2 mmol/L (3.5-5.1) Chloride Level 109 mmol/L (98-107) Carbon Dioxide Level 20 mmol/L (21-32) Anion Gap 12 (6-14) Blood Urea Nitrogen 20 mg/dL (7-20) Creatinine 0.7 mg/dL (0.6-1.0) Estimated GFR (Cockcroft-Gault) 84.2 Glucose Level 103 mg/dL (70-99) Calcium Level 8.5 mg/dL (8.5-10.1) Phosphorus Level 4.0 mg/dL (2.6-4.7) Magnesium Level 1.9 mg/dL (1.8-2.4) Test 10/06/18 12:00 Glucose (Fingerstick) 118 mg/dL (70-99) Laboratory Tests Test 10/05/18 17:29 10/06/18 00:34 10/06/18 05:40 10/06/18 05:42 Glucose (Fingerstick) 165 mg/dL (70-99) 122 mg/dL (70-99) 99 mg/dL (70-99) Sodium Level 141 mmol/L (136-145) Potassium Level 4.2 mmol/L (3.5-5.1) Chloride Level 109 mmol/L (98-107) Carbon Dioxide Level 20 mmol/L (21-32) Anion Gap 12 (6-14) Blood Urea Nitrogen 20 mg/dL (7-20) Creatinine 0.7 mg/dL (0.6-1.0) Estimated GFR (Cockcroft-Gault) 84.2 Glucose Level 103 mg/dL (70-99) Calcium Level 8.5 mg/dL (8.5-10.1) Phosphorus Level 4.0 mg/dL (2.6-4.7) Magnesium Level 1.9 mg/dL (1.8-2.4) Test 10/06/18 12:00 Glucose (Fingerstick) 118 mg/dL (70-99) Microbiology 10/01/18 Blood Culture - Final, Complete NO GROWTH AFTER 5 DAYS 09/25/18 - Final, Complete 09/25/18 - Final, Complete 09/25/18 - Final, Complete 09/25/18 Gram Stain Evaluation - Final, Complete 09/25/18 Sputum Culture - Final, Complete 09/25/18 Sputum Result 1 - Final, Complete 09/25/18 Sputum Result 2 - Final, Complete 10/01/18 Urine Culture - Final, Complete 10/01/18 Urine Culture Result 1 (MEOLDY) - Final, Complete Medications Current Medications Sodium Chloride 1,000 ml @ 1,000 mls/hr 1X ONCE IV Last administered on at 17:18; Start 09/22/18 at 17:15; Stop 09/22/18 at 18:14; Status DC Pantoprazole Sodium 80 mg/ Sodium Chloride 100 ml @ 10 mls/hr Q10H IV Last administered on 09/24/18at 05:46; Start 09/22/18 at 17:15; Stop 09/24/18 at 15:43 ; Status DC Pantoprazole Sodium (PROTONIX VIAL for IV PUSH) 80 mg 1X ONCE IVP Last administered on 09/22/18at 17:39; Start 09/22/18 at 17:15; Stop 09/22/18 at 17:17 ; Status DC Ceftriaxone Sodium (Rocephin) 1 gm 1X ONCE IVP ; Start 09/22/18 at 17:30; Stop 09/22/18 at 17:30; Status DC Sodium Chloride 1,000 ml @ 1,000 mls/hr 1X ONCE IV Last administered on at 17:27; Start 09/22/18 at 17:30; Stop 09/22/18 at 18:29; Status DC Vancomycin HCl (Vanco Per Pharmacy) 1 each PRN DAILY PRN MC SEE COMMENTS Last administered on 09/24/18at 21:37; Start 09/22/18 at 17:30; Stop 09/25/18 at 12:02 ; Status DC Piperacillin Sod/ Tazobactam Sod (Zosyn Per Pharmacy) 1 each PRN DAILY PRN MC SEE COMMENTS; Start 09/22/18 at 17:30; Stop 10/03/18 at 11:06; Status DC Piperacillin Sod/ Tazobactam Sod 3.375 gm/Sodium Chloride 50 ml @ 100 mls/hr 1X ONCE IV Last administered on 09/22/18at 18:04; Start 09/22/18 at 17:30; Stop 09/22/18 at 17:59; Status DC Vancomycin HCl 1.75 gm/Sodium Chloride 500 ml @ 250 mls/hr 1X ONCE IV Last administered on 09/22/18at 23:28; Start 09/22/18 at 17:30; Stop 09/22/18 at 19:29 ; Status DC Sodium Bicarbonate (Sodium Bicarb Adult 8.4% Syr) 50 meq 1X ONCE IV Last administered on 09/22/18 18:03; Start 09/22/18 at 17:45; Stop 09/22/18 at 17:46 ; Status DC Norepinephrine Bitartrate 250 ml @ 0 mls/hr 1X ONCE IV Last administered on at 17:51; Start 09/22/18 at 17:45; Stop 09/22/18 at 17:46; Status DC Sodium Bicarbonate 150 meq/Sterile Water 1,150 ml @ 125 mls/hr 1X ONCE IV Last administered on 09/22/18at 18:30; Start 09/22/18 at 18:30; Stop 09/23/18 at 03:41; Status DC Piperacillin Sod/ Tazobactam Sod 3.375 gm/Sodium Chloride 50 ml @ 100 mls/hr Q6HRS IV Last administered on 10/01/18at 05:20; Start 09/23/18 at 00:00; Stop 10/01/18 at 11:20; Status DC Vasopressin 40 unit/Dextrose 102 ml @ 6 mls/hr CONT PRN IV SEE I/O RECORD Last administered on 09/24/18at 12:53; Start 09/22/18 at 18:45; Stop 09/27/18 at 15:12 ; Status DC Fentanyl Citrate (Fentanyl 2ml Vial) 50 mcg 1X ONCE IV ; Start 09/22/18 at 19: 00; Stop 09/22/18 at 19:01; Status DC Midazolam HCl 100 ml @ 5 mls/hr CONT PRN IV SEE I/O RECORD Last administered on 09/25/18at 19:41; Start 09/22/18 at 19:00; Stop 09/29/18 at 11:55; Status DC Lidocaine/Sodium Bicarbonate (Buffered Lidocaine 1%) 4 ml 1X ONCE INJ Last administered on 09/22/18at 19:15; Start 09/22/18 at 19:15; Stop 09/22/18 at 19:18 ; Status DC Heparin Sodium (Porcine) (Heparin Sodium) 2,500 unit 1X ONCE INT CAT Last administered on 09/22/18at 19:15; Start 09/22/18 at 19:15; Stop 09/22/18 at 19:18 ; Status DC Heparin Sodium (Porcine) (Heparin Sodium) 10,000 unit STK-MED ONCE .ROUTE ; Start 09/22/18 at 19:17; Stop 09/22/18 at 19:18; Status DC Sodium Bicarbonate 40 meq/Potassium Chloride 15 meq/ Magnesium Sulfate 5 meq/ Calcium Chloride 2.5 meq/ Bicarbonate Dialysis Soln w/ out KCl 5,050.5172 ml @ 1 ,000 mls/hr Q5H4M IV Last administered on 09/23/18at 05:02; Start 09/22/18 at 22 :00; Stop 09/23/18 at 08:43; Status DC Sodium Bicarbonate 40 meq/Potassium Chloride 15 meq/ Magnesium Sulfate 5 meq/ Calcium Chloride 2.5 meq/ Bicarbonate Dialysis Soln w/ out KCl 5,050.5172 ml @ 1 ,000 mls/hr Q5H4M IV Last administered on 09/23/18at 05:02; Start 09/22/18 at 22 :00; Stop 09/23/18 at 08:43; Status DC Sodium Bicarbonate 150 meq/Sterile Water 1,150 ml @ 300 mls/hr Q3H50M IV Last administered on 09/24/18at 05:45; Start 09/22/18 at 22:00; Stop 09/24/18 at 15:44 ; Status DC Etomidate (Amidate) 20 mg STK-MED ONCE IV ; Start 09/22/18 at 20:36; Stop at 20:37; Status DC Rocuronium Basile (Zemuron) 50 mg STK-MED ONCE .ROUTE ; Start 09/22/18 at 20:36 ; Stop 09/22/18 at 20:37; Status DC Norepinephrine Bitartrate 250 ml @ 1.875 mls/ hr CONT PRN IV SEE I/O RECORD Last administered on 09/24/18at 12:54; Start 09/22/18 at 23:30; Stop 09/27/18 at 15:53; Status DC Fentanyl Citrate (Fentanyl 2ml Vial) 50 mcg PRN Q1HR PRN IV PAIN Last administered on 09/29/18 21:48; Start 09/22/18 at 23:30; Stop 10/02/18 at 07:55; Status DC Epinephrine HCl 4 mg/Sodium Chloride 254 ml @ 26.44 mls/ hr CONT PRN IV SEE I/ O RECORD; Start 09/23/18 at 02:15; Stop 09/27/18 at 15:53; Status DC Albuterol/ Ipratropium (Duoneb) 3 ml RTQID NEB Last administered on 10/04/18at 08 :16; Start 09/23/18 at 08:00; Stop 10/04/18 at 08:56; Status DC Sodium Bicarbonate 40 meq/Potassium Chloride 15 meq/ Magnesium Sulfate 5 meq/ Calcium Chloride 17.5 meq/ Bicarbonate Dialysis Soln w/ out KCl 5,061.2315 ml @ 1,000 mls/hr Q5H4M IV Last administered on 09/23/18at 10:13; Start 09/23/18 at 10:00; Stop 09/23/18 at 10:32; Status DC Sodium Bicarbonate 40 meq/Potassium Chloride 15 meq/ Magnesium Sulfate 5 meq/ Calcium Chloride 17.5 meq/ Bicarbonate Dialysis Soln w/ out KCl 5,061.2315 ml @ 1,000 mls/hr Q5H4M IV Last administered on 09/23/18at 10:12; Start 09/23/18 at 10:00; Stop 09/23/18 at 10:33; Status DC Sodium Bicarbonate 40 meq/Potassium Chloride 15 meq/ Magnesium Sulfate 5 meq/ Calcium Chloride 5 meq/ Bicarbonate Dialysis Soln w/ out KCl 5,052.3029 ml @ 1, 000 mls/hr Q5H4M IV Last administered on 09/23/18at 15:40; Start 09/23/18 at 11: 00; Stop 09/23/18 at 19:28; Status DC Sodium Bicarbonate 40 meq/Potassium Chloride 15 meq/ Magnesium Sulfate 5 meq/ Calcium Chloride 5 meq/ Bicarbonate Dialysis Soln w/ out KCl 5,052.3029 ml @ 1, 000 mls/hr Q5H4M IV Last administered on 09/23/18at 15:39; Start 09/23/18 at 10: 45; Stop 09/23/18 at 19:28; Status DC Vancomycin HCl 1 gm/Sodium Chloride 250 ml @ 250 mls/hr Q24H IV Last administered on 09/24/18at 21:38; Start 09/23/18 at 21:00; Stop 09/25/18 at 12:02 ; Status DC Vancomycin HCl (Vancomycin Trough Level) 1 each 1X ONCE MC Last administered on 09/24/18at 20:30; Start 09/24/18 at 20:30; Stop 09/24/18 at 20:31; Status DC Potassium Chloride 15 meq/ Magnesium Sulfate 5 meq/Calcium Chloride 5 meq/ Bicarbonate Dialysis Soln w/ out KCl 5,012.3029 ml @ 1,000 mls/hr Q5H1M IV Last administered on 09/23/18at 23:50; Start 09/23/18 at 20:30; Stop 09/24/18 at 04:06; Status DC Potassium Chloride 35 meq/ Magnesium Sulfate 5 meq/Calcium Chloride 5 meq/ Bicarbonate Dialysis Soln w/ out KCl 5,022.3029 ml @ 1,000 mls/hr Q5H2M IV Last administered on 09/23/18at 23:49; Start 09/23/18 at 20:30; Stop 09/24/18 at 04:06; Status DC Fentanyl Citrate 30 ml @ 0 mls/hr CONT PRN IV SEE PROTOCOL Last administered on 09/27/18at 07:03; Start 09/23/18 at 22:30; Stop 09/27/18 at 15:53; Status DC Chlorhexidine Gluconate (Peridex) 15 ml BID MM Last administered on 09/24/18at 21:41; Start 09/24/18 at 09:00; Stop 09/25/18 at 09:30; Status DC Potassium Chloride 15 meq/ Magnesium Sulfate 2.5 meq/Calcium Chloride 5 meq/ Bicarbonate Dialysis Soln w/ out KCl 5,011.6871 ml @ 1,000 mls/hr Q5H1M IV Last administered on 09/24/18at 04:34; Start 09/24/18 at 04:30; Stop 09/24/18 at 17:00; Status DC Potassium Chloride 35 meq/ Magnesium Sulfate 2.5 meq/Calcium Chloride 5 meq/ Bicarbonate Dialysis Soln w/ out KCl 5,021.6871 ml @ 1,000 mls/hr Q5H2M IV Last administered on 09/24/18at 04:34; Start 09/24/18 at 04:30; Stop 09/24/18 at 17:00; Status DC Sodium Chloride 90 meq/Potassium Chloride 50 meq/ Potassium Phosphate 13.6 mmol/ Magnesium Sulfate 10 meq/ Calcium Gluconate 10 meq/ Multivitamins 10 ml/Chromium / Copper/Manganese/ Seleni/Zn 1 ml/ Total Parenteral Nutrition/Amino Acids/ Dextrose/ Fat Emulsion Intravenous 87.0013 ml @ 3.625 mls/hr TPN CONT IV ; Start 09/24/18 at 22:00; Stop 09/25/18 at 21:59; Status UNV Info (Tpn Per Pharmacy) 1 each PRN DAILY PRN MC SEE COMMENTS Last administered on 10/05/18at 11:40; Start 09/24/18 at 08:15 Sodium Acetate 45 meq/Potassium Acetate 25 meq/ Potassium Phosphate 13.6 mmol/ Magnesium Sulfate 10 meq/ Calcium Gluconate 10 meq/ Multivitamins 10 ml/Chromium / Copper/Manganese/ Seleni/Zn 1 ml/ Total Parenteral Nutrition/Amino Acids/ Dextrose/ Fat Emulsion Intravenous 1,422 ml @ 59.25 mls/ hr TPN CONT IV Last administered on 09/24/18at 22:50; Start 09/24/18 at 22:00; Stop 09/25/18 at 21:59 ; Status DC Potassium Chloride/Water 50 ml @ 50 mls/hr Q1H IV Last administered on at 10:39; Start 09/25/18 at 09:00; Stop 09/25/18 at 10:59; Status DC Insulin Human Lispro (HumaLOG) 0-5 UNITS Q6HRS SQ Last administered on at 17:56; Start 09/25/18 at 12:00 Dextrose (Dextrose 50%-Water Syringe) 12.5 gm PRN Q15MIN PRN IV SEE COMMENTS; Start 09/25/18 at 09:30 Famotidine (Pepcid Vial) 20 mg QHS IVP Last administered on 09/30/18at 20:55; Start 09/25/18 at 21:00; Stop 10/01/18 at 11:50; Status DC Linezolid/Dextrose 300 ml @ 300 mls/hr Q12HR IV Last administered on 09/28/18at 08:52; Start 09/25/18 at 13:00; Stop 09/28/18 at 17:06; Status DC Pantoprazole Sodium (PROTONIX VIAL for IV PUSH) 40 mg DAILYAC IVP ; Start at 13:00; Stop 09/25/18 at 13:00; Status DC Sodium Chloride 45 meq/Potassium Acetate 35 meq/ Potassium Phosphate 17 mmol/ Magnesium Sulfate 5 meq/Calcium Gluconate 10 meq/ Multivitamins 10 ml/Chromium/ Copper/Manganese/ Seleni/Zn 1 ml/ Total Parenteral Nutrition/Amino Acids/ Dextrose/ Fat Emulsion Intravenous 1,512 ml @ 63 mls/hr TPN CONT IV Last administered on 09/25/18at 22:10; Start 09/25/18 at 22:00; Stop 09/26/18 at 13:53 ; Status DC Sodium Phosphate 10 mmol/Dextrose 253.3333 ml @ 63.333 m... 1X ONCE IV Last administered on 09/25/18at 16:16; Start 09/25/18 at 16:00; Stop 09/25/18 at 19:59 ; Status DC Amitriptyline HCl (Elavil) 25 mg QHS PO ; Start 09/26/18 at 21:00; Status UNV Non-Formulary Medication (Desvenlafaxine Succinate (Pristiq Er)) 1 tab DAILY PO ; Start 09/27/18 at 09:00; Status UNV Haloperidol (Haldol) 10 mg HS PO Last administered on 09/26/18at 21:20; Start at 21:00; Stop 09/27/18 at 21:07; Status DC Sodium Chloride 45 meq/Potassium Acetate 35 meq/ Potassium Phosphate 17 mmol/ Magnesium Sulfate 5 meq/Calcium Gluconate 10 meq/ Multivitamins 10 ml/Chromium/ Copper/Manganese/ Seleni/Zn 1 ml/ Total Parenteral Nutrition/Amino Acids/ Dextrose/ Fat Emulsion Intravenous 1,512 ml @ 63 mls/hr TPN CONT IV ; Start at 22:00; Stop 09/27/18 at 21:59; Status Cancel Sodium Chloride 45 meq/Potassium Acetate 35 meq/ Potassium Phosphate 17 mmol/ Magnesium Sulfate 5 meq/Calcium Gluconate 10 meq/ Multivitamins 10 ml/Chromium/ Copper/Manganese/ Seleni/Zn 1 ml/ Total Parenteral Nutrition/Amino Acids/ Dextrose/ Fat Emulsion Intravenous 1,512 ml @ 63 mls/hr TPN CONT IV Last administered on 09/26/18at 21:31; Start 09/26/18 at 22:00; Stop 09/27/18 at 21:59 ; Status DC Lorazepam (Ativan) 0.5 mg PRN Q6HRS PRN PO ANXIETY / AGITATION Last administered on 09/30/18at 20:54; Start 09/27/18 at 08:15; Stop 10/03/18 at 12:14; Status DC Sodium Chloride 45 meq/Potassium Acetate 35 meq/ Potassium Phosphate 17 mmol/ Magnesium Sulfate 5 meq/Calcium Gluconate 10 meq/ Multivitamins 10 ml/Chromium/ Copper/Manganese/ Seleni/Zn 1 ml/ Total Parenteral Nutrition/Amino Acids/ Dextrose/ Fat Emulsion Intravenous 1,512 ml @ 63 mls/hr TPN CONT IV Last administered on 09/27/18at 21:34; Start 09/27/18 at 22:00; Stop 09/28/18 at 21:59 ; Status DC Haloperidol Lactate (Haldol Inj) 10 mg HS IVP Last administered on 09/27/18at 21 :33; Start 09/27/18 at 22:00; Stop 09/28/18 at 07:58; Status DC Lorazepam (Ativan) 0.5 mg PRN Q6HRS PRN IV ANXIETY / AGITATION Last administered on 10/05/18at 17:47; Start 09/27/18 at 21:15 Haloperidol (Haldol) 10 mg PRN QHS PRN PO AGITATION IF TAKING PO; Start at 21:15; Stop 09/28/18 at 08:02; Status DC Haloperidol (Haldol) 5 mg QHS PO Last administered on 10/02/18at 22:20; Start 09/28/18 at 21:00; Stop 10/03/18 at 12:14; Status DC Sodium Chloride 45 meq/Potassium Acetate 35 meq/ Potassium Phosphate 17 mmol/ Magnesium Sulfate 5 meq/Calcium Gluconate 10 meq/ Multivitamins 10 ml/Chromium/ Copper/Manganese/ Seleni/Zn 1 ml/ Total Parenteral Nutrition/Amino Acids/ Dextrose/ Fat Emulsion Intravenous 1,512 ml @ 63 mls/hr TPN CONT IV Last administered on 09/28/18at 23:00; Start 09/28/18 at 22:00; Stop 09/29/18 at 21:59; Status DC Ondansetron HCl (Zofran) 4 mg PRN Q6HRS PRN IV NAUSEA/VOMITING; Start 09/29/18 at 11:30 Sodium Chloride 40 meq/Potassium Acetate 35 meq/ Potassium Phosphate 17 mmol/ Magnesium Sulfate 5 meq/Calcium Gluconate 10 meq/ Multivitamins 10 ml/Chromium/ Copper/Manganese/ Seleni/Zn 1 ml/ Total Parenteral Nutrition/Amino Acids/ Dextrose/ Fat Emulsion Intravenous 1,512 ml @ 63 mls/hr TPN CONT IV Last administered on 09/29/18at 21:18; Start 09/29/18 at 22:00; Stop 09/30/18 at 21:59; Status DC Haloperidol Lactate (Haldol Inj) 5 mg 1X ONCE IM Last administered on 15:15; Start 09/29/18 at 15:15; Stop 09/29/18 at 15:16; Status DC Sodium Chloride 30 meq/Sodium Acetate 10 meq/ Potassium Acetate 35 meq/ Potassium Phosphate 17 mmol/ Magnesium Sulfate 5 meq/Calcium Gluconate 10 meq/ Multivitamins 10 ml/Chromium/ Copper/Manganese/ Seleni/Zn 1 ml/ Total Parenteral Nutrition/Amino Acids/Dextrose/ Fat Emulsion Intravenous 1,512 ml @ 63 mls/hr TPN CONT IV Last administered on 09/30/18at 20:56; Start 09/30/18 at 22 :00; Stop 10/01/18 at 21:59; Status DC Acetaminophen (Tylenol) 650 mg PRN Q6HRS PRN PO FEVER Last administered on 15:22; Start 09/30/18 at 14:00 Meropenem 500 mg/ Sodium Chloride 50 ml @ 100 mls/hr Q8HRS IV Last administered on 10/03/18 06:00; Start 10/01/18 at 14:00; Stop 10/03/18 at 12:38; Status DC Vancomycin HCl (Vanco Per Pharmacy) 1 each PRN DAILY PRN MC SEE COMMENTS Last administered on 10/02/18at 15:33; Start 10/01/18 at 11:30; Stop 10/03/18 at 12:42; Status DC Micafungin Sodium 100 mg/Dextrose 100 ml @ 100 mls/hr Q24H IV Last administered on 10/04/18 11:09; Start 10/01/18 at 12:00; Stop 10/04/18 at 18:51; Status DC Vancomycin HCl 1.75 gm/Sodium Chloride 500 ml @ 250 mls/hr 1X ONCE IV Last administered on 10/01/18 15:01; Start 10/01/18 at 12:00; Stop 10/01/18 at 13:59; Status DC Famotidine (Pepcid) 20 mg QHS PO Last administered on 10/05/18at 20:18; Start 10/01/18 at 21:00 Sodium Chloride 30 meq/Sodium Acetate 10 meq/ Potassium Acetate 35 meq/ Potassium Phosphate 17 mmol/ Magnesium Sulfate 10 meq/Calcium Gluconate 10 meq/ Multivitamins 10 ml/Chromium/ Copper/Manganese/ Seleni/Zn 1 ml/ Total Parenteral Nutrition/Amino Acids/Dextrose/ Fat Emulsion Intravenous 1,512 ml @ 63 mls/hr TPN CONT IV Last administered on 10/01/18 22:10; Start 10/01/18 at 22 :00; Stop 10/02/18 at 21:59; Status DC Lactobacillus Rhamnosus (Culturelle) 1 cap BID PO Last administered on 09:20; Start 10/01/18 at 21:00 Vancomycin HCl 1 gm/Sodium Chloride 250 ml @ 250 mls/hr Q24H IV Last administered on 10/02/18 15:46; Start 10/02/18 at 15:00; Stop 10/03/18 at 12:38; Status DC Vancomycin HCl (Vancomycin Trough Level) 1 each 1X ONCE MC ; Start 10/03/18 at 14:30; Stop 10/03/18 at 14:30; Status DC Sodium Chloride 30 meq/Sodium Acetate 10 meq/ Potassium Acetate 35 meq/ Potassium Phosphate 17 mmol/ Magnesium Sulfate 10 meq/Calcium Gluconate 10 meq/ Multivitamins 10 ml/Chromium/ Copper/Manganese/ Seleni/Zn 1 ml/ Total Parenteral Nutrition/Amino Acids/Dextrose/ Fat Emulsion Intravenous 1,512 ml @ 63 mls/hr TPN CONT IV Last administered on 10/02/18 22:21; Start 10/02/18 at 22 :00; Stop 10/03/18 at 21:59; Status DC Magnesium Sulfate/ Dextrose 100 ml @ 100 mls/hr 1X ONCE IV Last administered on 10/02/18 17:18; Start 10/02/18 at 15:30; Stop 10/02/18 at 16:29; Status DC Haloperidol (Haldol) 10 mg QHS PO Last administered on 10/04/18 22:00; Start at 21:00; Stop 10/05/18 at 07:49; Status DC Lorazepam (Ativan) 0.5 mg TID PO Last administered on 10/04/18 21:59; Start 10/03/18 at 14:00; Stop 10/05/18 at 07:49; Status DC Meropenem 1 gm/ Sodium Chloride 100 ml @ 200 mls/hr Q8HRS IV Last administered on 10/06/18at 05:41; Start 10/03/18 at 14:00 Sodium Chloride 30 meq/Sodium Acetate 10 meq/ Potassium Acetate 10 meq/Sodium Phosphate 13.6 mmol/Magnesium Sulfate 10 meq/ Calcium Gluconate 10 meq/ Multivitamins 10 ml/Chromium/ Copper/Manganese/ Seleni/Zn 1 ml/ Total Parenteral Nutrition/Amino Acids/Dextrose/ Fat Emulsion Intravenous 1,512 ml @ 63 mls/hr TPN CONT IV Last administered on 10/03/18at 20:47; Start 10/03/18 at 22 :00; Stop 10/04/18 at 21:59; Status DC Sodium Chloride 30 meq/Sodium Acetate 10 meq/ Potassium Acetate 10 meq/Sodium Phosphate 13.6 mmol/Magnesium Sulfate 10 meq/ Calcium Gluconate 10 meq/ Multivitamins 10 ml/Chromium/ Copper/Manganese/ Seleni/Zn 1 ml/ Total Parenteral Nutrition/Amino Acids/Dextrose/ Fat Emulsion Intravenous 1,512 ml @ 63 mls/hr TPN CONT IV Last administered on 10/04/18at 22:00; Start 10/04/18 at 22 :00; Stop 10/05/18 at 21:59; Status DC Haloperidol (Haldol) 10 mg BID PO Last administered on 10/06/18at 09:20; Start at 09:00 Lorazepam (Ativan) 1 mg TID PO Last administered on 10/06/18at 09:21; Start at 09:00 Sodium Chloride 30 meq/Sodium Acetate 10 meq/ Potassium Acetate 10 meq/Sodium Phosphate 13.6 mmol/Magnesium Sulfate 10 meq/ Calcium Gluconate 10 meq/ Multivitamins 10 ml/Chromium/ Copper/Manganese/ Seleni/Zn 1 ml/ Total Parenteral Nutrition/Amino Acids/Dextrose/ Fat Emulsion Intravenous 1,512 ml @ 63 mls/hr TPN CONT IV Last administered on 10/05/18at 21:27; Start 10/05/18 at 22 :00; Stop 10/06/18 at 21:59 Active Scripts Active Reported [iron] 325 Mg PO Haloperidol 10 Mg Tablet 10 Mg PO QHS Ventolin Hfa Inhaler (Albuterol Sulfate) 18 Gm Hfa.aer.ad 2 Puff INH Q4HRS PRN Pristiq Er (Desvenlafaxine Succinate) 50 Mg Tab.er.24h 1 Tab PO DAILY Amitriptyline Hcl 25 Mg Tablet 1 Tab PO QHS Diazepam 5 Mg Tablet 5 Mg PO TID Gabapentin (Gabapentin) 300 Mg Capsule 300 Mg PO TID Vitals/I & O Vital Sign - Last 24 Hours 10/05/18 10/05/18 10/05/18 10/05/18 15:28 19:00 19:45 23:00 Temp 98.7 98.8 98.7 98.8 Pulse 112 108 98 Resp 18 18 20 B/P (MAP) 128/63 (84) 158/80 (106) 125/83 (97) Pulse Ox 99 93 97 O2 Delivery Room Air Room Air Room Air Room Air 10/06/18 10/06/18 10/06/18 10/06/18 03:00 07:11 08:17 11:17 Temp 98.7 98.7 98.8 98.7 98.7 98.8 Pulse 90 95 85 Resp 18 18 B/P (MAP) 118/64 (82) 120/88 (99) 121/88 (99) Pulse Ox 97 97 97 O2 Delivery Room Air Room Air Room Air Room Air O2 Flow Rate 2.0 Intake and Output 10/05/18 10/05/18 10/06/18 15:00 23:00 07:00 Intake Total 20 ml 260 ml 240 ml Balance 20 ml 260 ml 240 ml MILY COOK MD Oct 06, 2018 13:46
[2018-10-06 15:04] VITALS: BP 120/85
[2018-10-06 19:00] VITALS: BP 101/64
[2018-10-06] MEDS: FAMOTIDINE 20 MG TABLET. PO SCH (20:19)
[2018-10-06] MEDS ORDERED: AMINO ACID IV SCH ×11 (22:00)
[2018-10-06] MEDS ORDERED: TOTAL PARENTERAL NUTRITION IV SCH ×11 (22:00)
[2018-10-06] MEDS ORDERED: DEXTROSE 70% IV SCH ×11 (22:00)
[2018-10-06] MEDS ORDERED: [UNRECOGNIZED DRUG - OTHER] IV SCH ×11 (22:00)
[2018-10-06 23:00] VITALS: BP 121/58
[2018-10-07 03:00] VITALS: BP 119/45
[2018-10-07] MEDS: MEROPENEM 1 GM in IV NORMAL SALINE 100ML 100 ML IV SCH ×3 (05:38→21:13)
[2018-10-07] MEDS: INSULIN LISPRO 300 UNITS/3 ML INSULN.PEN. SQ SCH ×3 (05:58→18:00)
[2018-10-07 06:36] LABS: BASO # 0.2 x10^3/uL (0.0-0.2); BASO % 2 % (0-3); EOS # 0.4 x10^3/uL (0.0-0.7); EOS % 4 % (0-3); HEMATOCRIT 27.6 % (36.0-47.0); HEMOGLOBIN 9.2 g/dL (12.0-15.5); LYMPH # 1.8 x10^3/uL (1.0-4.8); LYMPH % 21 % (24-48); MEAN CORPUSCULAR HEMOGLOBIN 30 pg (25-35); MEAN CORPUSCULAR HGB CONC 33 g/dL (31-37); MEAN CORPUSCULAR VOLUME 92 fL (79-100); MONO # 1.2 x10^3/uL (0.0-1.1); MONO % 14 % (0-9); NEUT # 5.1 x10^3uL (1.8-7.7); NEUT % 59 % (31-73); PLATELET COUNT 362 x10^3/uL (140-400); RED BLOOD COUNT 3.01 x10^6/uL (3.50-5.40); RED CELL DISTRIBUTION WIDTH 16.9 % (11.5-14.5); WHITE BLOOD COUNT 8.6 x10^3/uL (4.0-11.0)
[2018-10-07 07:00] VITALS: BP 123/68
--- NOTE | 2018-10-07 09:38 | PDOC ---
Infectious Disease Note Subjective Subjective Wants some cake Remains on 1:1 observation Confused No fevers, vomiting or diarrhea reported TPN ROS ROS per HPI Vital Sign Vital Signs Vital Signs Date Time Temp Pulse Resp B/P (MAP) Pulse Ox O2 Delivery O2 Flow Rate FiO2 10/07/18 07:00 98.1 107 18 123/68 (86) 99 Room Air 98.1 10/06/18 08:17 2.0 Physical Exam PHYSICAL EXAM GENERAL: Sleeping HEENT: Poor dentition. No thrush. NECK: Supple LUNGS: Decreased breath sounds at the bases, otherwise clear. HEART: S1, S2. No murmurs. ABDOMEN: Soft, bowel sounds present, nontender : No [place] EXTREMITIES: No edema, no cyanosis. NEUROLOGIC: Arouses to voice, confused DERM: Warm, dry. No generalized skin rash. E-PICC clean Labs Lab Laboratory Tests Test 10/06/18 12:00 10/06/18 17:48 10/06/18 23:07 10/07/18 06:15 Glucose (Fingerstick) 118 mg/dL (70-99) 129 mg/dL (70-99) 108 mg/dL (70-99) White Blood Count 8.6 x10^3/uL (4.0-11.0) Red Blood Count 3.01 x10^6/uL (3.50-5.40) Hemoglobin 9.2 g/dL (12.0-15.5) Hematocrit 27.6 % (36.0-47.0) Mean Corpuscular Volume 92 fL (79-100) Mean Corpuscular Hemoglobin 30 pg (25-35) Mean Corpuscular Hemoglobin Concent 33 g/dL (31-37) Red Cell Distribution Width 16.9 % (11.5-14.5) Platelet Count 362 x10^3/uL (140-400) Neutrophils (%) (Auto) 59 % (31-73) Lymphocytes (%) (Auto) 21 % (24-48) Monocytes (%) (Auto) 14 % (0-9) Eosinophils (%) (Auto) 4 % (0-3) Basophils (%) (Auto) 2 % (0-3) Neutrophils # (Auto) 5.1 x10^3uL (1.8-7.7) Lymphocytes # (Auto) 1.8 x10^3/uL (1.0-4.8) Monocytes # (Auto) 1.2 x10^3/uL (0.0-1.1) Eosinophils # (Auto) 0.4 x10^3/uL (0.0-0.7) Basophils # (Auto) 0.2 x10^3/uL (0.0-0.2) Micro 10/01. BLOOD CULTURE NO GROWTH AFTER 5 DAYS 10/01. URINE CULTURE RES 1 Final No growth Objective Assessment Febrile illness - pattern improved Septic shock POA Brevundimonas diminuta bacteremia (PSAE) POA 09/22, source likely GI, UA neg. repeat BC 10/01 neg - CT abdo and pelvis in aug 2018 done, no abscess MARII and Metabolic acidosis resolved GI Bleed Anemia Thrombocytopenia Leucocytosis - improved Bipolar disorder/schizophrenia Positive MRSA nares Plan Plan of Care cont Merrem, was on Zosyn prior to that repeat BC from 10/01 neg D/W nursing Patient seen, examined, I agree with above. Assessment and plan was co formulated with NURSING HOME ADMISSIONS DIRECTOR. LUCAS ABARCA APRN Oct 07, 2018 09:38 LUKE VERDIN MD Oct 07, 2018 14:45
--- NOTE | 2018-10-07 10:05 | PDOC ---
PULMONARY PROGRESS NOTES Subjective trying to answer my Qs, not making sense, appears comfortable Vitals Vital Signs Date Time Temp Pulse Resp B/P (MAP) Pulse Ox O2 Delivery O2 Flow Rate FiO2 10/07/18 07:00 98.1 107 18 123/68 (86) 99 Room Air 98.1 10/06/18 08:17 2.0 General: Confused HEENT: Other (nc at perrl ) Lungs: Other (decrease bs) Cardiovascular: S1, S2 Abdomen: Soft, Non-tender Extremities: Other (1+edema) Skin: Warm Labs Laboratory Tests Test 10/05/18 11:58 10/05/18 17:29 10/06/18 00:34 10/06/18 05:40 Glucose (Fingerstick) 133 mg/dL (70-99) 165 mg/dL (70-99) 122 mg/dL (70-99) Sodium Level 141 mmol/L (136-145) Potassium Level 4.2 mmol/L (3.5-5.1) Chloride Level 109 mmol/L (98-107) Carbon Dioxide Level 20 mmol/L (21-32) Anion Gap 12 (6-14) Blood Urea Nitrogen 20 mg/dL (7-20) Creatinine 0.7 mg/dL (0.6-1.0) Estimated GFR (Cockcroft-Gault) 84.2 Glucose Level 103 mg/dL (70-99) Calcium Level 8.5 mg/dL (8.5-10.1) Phosphorus Level 4.0 mg/dL (2.6-4.7) Magnesium Level 1.9 mg/dL (1.8-2.4) Test 10/06/18 05:42 10/06/18 12:00 10/06/18 17:48 10/06/18 23:07 Glucose (Fingerstick) 99 mg/dL (70-99) 118 mg/dL (70-99) 129 mg/dL (70-99) 108 mg/dL (70-99) Test 10/07/18 06:15 White Blood Count 8.6 x10^3/uL (4.0-11.0) Red Blood Count 3.01 x10^6/uL (3.50-5.40) Hemoglobin 9.2 g/dL (12.0-15.5) Hematocrit 27.6 % (36.0-47.0) Mean Corpuscular Volume 92 fL (79-100) Mean Corpuscular Hemoglobin 30 pg (25-35) Mean Corpuscular Hemoglobin Concent 33 g/dL (31-37) Red Cell Distribution Width 16.9 % (11.5-14.5) Platelet Count 362 x10^3/uL (140-400) Neutrophils (%) (Auto) 59 % (31-73) Lymphocytes (%) (Auto) 21 % (24-48) Monocytes (%) (Auto) 14 % (0-9) Eosinophils (%) (Auto) 4 % (0-3) Basophils (%) (Auto) 2 % (0-3) Neutrophils # (Auto) 5.1 x10^3uL (1.8-7.7) Lymphocytes # (Auto) 1.8 x10^3/uL (1.0-4.8) Monocytes # (Auto) 1.2 x10^3/uL (0.0-1.1) Eosinophils # (Auto) 0.4 x10^3/uL (0.0-0.7) Basophils # (Auto) 0.2 x10^3/uL (0.0-0.2) Laboratory Tests Test 10/06/18 12:00 10/06/18 17:48 10/06/18 23:07 10/07/18 06:15 Glucose (Fingerstick) 118 mg/dL (70-99) 129 mg/dL (70-99) 108 mg/dL (70-99) White Blood Count 8.6 x10^3/uL (4.0-11.0) Red Blood Count 3.01 x10^6/uL (3.50-5.40) Hemoglobin 9.2 g/dL (12.0-15.5) Hematocrit 27.6 % (36.0-47.0) Mean Corpuscular Volume 92 fL (79-100) Mean Corpuscular Hemoglobin 30 pg (25-35) Mean Corpuscular Hemoglobin Concent 33 g/dL (31-37) Red Cell Distribution Width 16.9 % (11.5-14.5) Platelet Count 362 x10^3/uL (140-400) Neutrophils (%) (Auto) 59 % (31-73) Lymphocytes (%) (Auto) 21 % (24-48) Monocytes (%) (Auto) 14 % (0-9) Eosinophils (%) (Auto) 4 % (0-3) Basophils (%) (Auto) 2 % (0-3) Neutrophils # (Auto) 5.1 x10^3uL (1.8-7.7) Lymphocytes # (Auto) 1.8 x10^3/uL (1.0-4.8) Monocytes # (Auto) 1.2 x10^3/uL (0.0-1.1) Eosinophils # (Auto) 0.4 x10^3/uL (0.0-0.7) Basophils # (Auto) 0.2 x10^3/uL (0.0-0.2) Medications Active Scripts Medications Dose Route/Sig Max Daily Dose Days Date Category [iron] 325 Mg PO 09/23/18 Reported Haloperidol 10 Mg Tablet 10 Mg PO QHS 09/23/18 Reported Ventolin Hfa Inhaler (Albuterol Sulfate) 18 Gm Hfa.aer.ad 2 Puff INH Q4HRS PRN 07/04/18 Reported Pristiq Er (Desvenlafaxine Succinate) 50 Mg Tab.er.24h 1 Tab PO DAILY 07/01/18 Reported Amitriptyline Hcl 25 Mg Tablet 1 Tab PO QHS 07/01/18 Reported Diazepam 5 Mg Tablet 5 Mg PO TID 07/01/18 Reported Gabapentin (Gabapentin) 300 Mg Capsule 300 Mg PO TID 07/01/18 Reported Impression . 1. Acute respiratory failure, multifactorial in etiology including shock, acute kidney injury 2. SEPTIC SHOCK 3. Abnormal CT of the chest with left lower lobe dense atelectasis/ PNEUMONIA 4. Acute kidney injury. 5. Electrolyte abnormality. 6. Gastrointestinal bleeding. 7. Hypotension. resolved 8. Severe metabolic acidosis secondary to shock and acute kidney injury 9. FEVER, resolved BLOOD CULTURE LC Final Final report BLD CULT RESULT 1 Final Comment Brevundimonas diminuta ANTIMICROBIAL SUSCEPTIBILITY Final Comment S = Susceptible; I = Intermediate; R = Resistant P = Positive; N = Negative MICS are expressed in micrograms per mL Antibiotic RSLT#1 RSLT#2 RSLT#3 RSLT#4 Amikacin S<=4 Cefepime S<=2 Cefotaxime S<=2 Ceftazidime S<=2 Ceftriaxone S<=1 Ciprofloxacin S<=1 Gentamicin S<=1 Imipenem S<=1 Levofloxacin S<=1 Meropenem S<=1 Piperacillin/Tazobactam S<=8 Tetracycline S<=4 Tobramycin S<=1 Trimethoprim/Sulfa S<=2/38 Performed at: DA - [facility] [address], [place], [place] [id number] Shirt Sorter: SIMON Mehta MD, Phone: [phone] Plan . AWAITING PLACEMENT continue antibiotics PER ID elevate hob avoid oversedation discussed w ELIANE Jerez MD Oct 07, 2018 10:04
[2018-10-07 11:00] VITALS: BP 145/63
--- NOTE | 2018-10-07 11:36 | PDOC ---
PROGRESS NOTES Subjective Subjective Patient awake, fairly calm, not answering questions. Objective Objective Vital Signs Date Time Temp Pulse Resp B/P (MAP) Pulse Ox O2 Delivery O2 Flow Rate FiO2 10/07/18 11:00 97.5 114 18 145/63 (90) 99 Room Air 97.5 10/06/18 08:17 2.0 Intake and Output 10/07/18 07:00 Intake Total 240 ml Output Total 200 ml Balance 40 ml Intake Oral 240 ml Output Urine Total 200 ml # Voids 2 # Bowel Movements 1 Physical Exam Abdomen: Normal bowel sounds, Soft, No tenderness Heart: Regular rate Extremities: No edema General: Alert, No acute distress Lungs: Clear to auscultation Plan Plan of Care 1. Bacteremia - stable, afebrile, repeat blood cultures negative to date. Continue Meropenem per ID. 2. schizophrenia with metabolic encephalopathy - still frequently agitated and uncooperative, will try increasing Haldol to TID, continue Ativan scheduled and prn. 3. dysphagia - patient continues to decline solid food, does take small amount of liquids. Continue TPN and dysphagia diet. 4. debility - continue therapies, hope to transfer to LT[facility] tomorrow? Comment Review of Relevant I have reviewed the following items michelle (where applicable) has been applied. Labs Laboratory Tests Test 10/05/18 11:58 10/05/18 17:29 10/06/18 00:34 10/06/18 05:40 Glucose (Fingerstick) 133 mg/dL (70-99) 165 mg/dL (70-99) 122 mg/dL (70-99) Sodium Level 141 mmol/L (136-145) Potassium Level 4.2 mmol/L (3.5-5.1) Chloride Level 109 mmol/L (98-107) Carbon Dioxide Level 20 mmol/L (21-32) Anion Gap 12 (6-14) Blood Urea Nitrogen 20 mg/dL (7-20) Creatinine 0.7 mg/dL (0.6-1.0) Estimated GFR (Cockcroft-Gault) 84.2 Glucose Level 103 mg/dL (70-99) Calcium Level 8.5 mg/dL (8.5-10.1) Phosphorus Level 4.0 mg/dL (2.6-4.7) Magnesium Level 1.9 mg/dL (1.8-2.4) Test 10/06/18 05:42 10/06/18 12:00 10/06/18 17:48 10/06/18 23:07 Glucose (Fingerstick) 99 mg/dL (70-99) 118 mg/dL (70-99) 129 mg/dL (70-99) 108 mg/dL (70-99) Test 10/07/18 06:15 White Blood Count 8.6 x10^3/uL (4.0-11.0) Red Blood Count 3.01 x10^6/uL (3.50-5.40) Hemoglobin 9.2 g/dL (12.0-15.5) Hematocrit 27.6 % (36.0-47.0) Mean Corpuscular Volume 92 fL (79-100) Mean Corpuscular Hemoglobin 30 pg (25-35) Mean Corpuscular Hemoglobin Concent 33 g/dL (31-37) Red Cell Distribution Width 16.9 % (11.5-14.5) Platelet Count 362 x10^3/uL (140-400) Neutrophils (%) (Auto) 59 % (31-73) Lymphocytes (%) (Auto) 21 % (24-48) Monocytes (%) (Auto) 14 % (0-9) Eosinophils (%) (Auto) 4 % (0-3) Basophils (%) (Auto) 2 % (0-3) Neutrophils # (Auto) 5.1 x10^3uL (1.8-7.7) Lymphocytes # (Auto) 1.8 x10^3/uL (1.0-4.8) Monocytes # (Auto) 1.2 x10^3/uL (0.0-1.1) Eosinophils # (Auto) 0.4 x10^3/uL (0.0-0.7) Basophils # (Auto) 0.2 x10^3/uL (0.0-0.2) Laboratory Tests Test 10/06/18 12:00 10/06/18 17:48 10/06/18 23:07 10/07/18 06:15 Glucose (Fingerstick) 118 mg/dL (70-99) 129 mg/dL (70-99) 108 mg/dL (70-99) White Blood Count 8.6 x10^3/uL (4.0-11.0) Red Blood Count 3.01 x10^6/uL (3.50-5.40) Hemoglobin 9.2 g/dL (12.0-15.5) Hematocrit 27.6 % (36.0-47.0) Mean Corpuscular Volume 92 fL (79-100) Mean Corpuscular Hemoglobin 30 pg (25-35) Mean Corpuscular Hemoglobin Concent 33 g/dL (31-37) Red Cell Distribution Width 16.9 % (11.5-14.5) Platelet Count 362 x10^3/uL (140-400) Neutrophils (%) (Auto) 59 % (31-73) Lymphocytes (%) (Auto) 21 % (24-48) Monocytes (%) (Auto) 14 % (0-9) Eosinophils (%) (Auto) 4 % (0-3) Basophils (%) (Auto) 2 % (0-3) Neutrophils # (Auto) 5.1 x10^3uL (1.8-7.7) Lymphocytes # (Auto) 1.8 x10^3/uL (1.0-4.8) Monocytes # (Auto) 1.2 x10^3/uL (0.0-1.1) Eosinophils # (Auto) 0.4 x10^3/uL (0.0-0.7) Basophils # (Auto) 0.2 x10^3/uL (0.0-0.2) Microbiology 10/01/18 Blood Culture - Final, Complete NO GROWTH AFTER 5 DAYS 09/25/18 - Final, Complete 09/25/18 - Final, Complete 09/25/18 - Final, Complete 09/25/18 Gram Stain Evaluation - Final, Complete 09/25/18 Sputum Culture - Final, Complete 09/25/18 Sputum Result 1 - Final, Complete 09/25/18 Sputum Result 2 - Final, Complete 10/01/18 Urine Culture - Final, Complete 10/01/18 Urine Culture Result 1 (MELODY) - Final, Complete Medications Current Medications Sodium Chloride 1,000 ml @ 1,000 mls/hr 1X ONCE IV Last administered on at 17:18; Start 09/22/18 at 17:15; Stop 09/22/18 at 18:14; Status DC Pantoprazole Sodium 80 mg/ Sodium Chloride 100 ml @ 10 mls/hr Q10H IV Last administered on 09/24/18at 05:46; Start 09/22/18 at 17:15; Stop 09/24/18 at 15:43 ; Status DC Pantoprazole Sodium (PROTONIX VIAL for IV PUSH) 80 mg 1X ONCE IVP Last administered on 09/22/18at 17:39; Start 09/22/18 at 17:15; Stop 09/22/18 at 17:17 ; Status DC Ceftriaxone Sodium (Rocephin) 1 gm 1X ONCE IVP ; Start 09/22/18 at 17:30; Stop 09/22/18 at 17:30; Status DC Sodium Chloride 1,000 ml @ 1,000 mls/hr 1X ONCE IV Last administered on at 17:27; Start 09/22/18 at 17:30; Stop 09/22/18 at 18:29; Status DC Vancomycin HCl (Vanco Per Pharmacy) 1 each PRN DAILY PRN MC SEE COMMENTS Last administered on 09/24/18at 21:37; Start 09/22/18 at 17:30; Stop 09/25/18 at 12:02 ; Status DC Piperacillin Sod/ Tazobactam Sod (Zosyn Per Pharmacy) 1 each PRN DAILY PRN MC SEE COMMENTS; Start 09/22/18 at 17:30; Stop 10/03/18 at 11:06; Status DC Piperacillin Sod/ Tazobactam Sod 3.375 gm/Sodium Chloride 50 ml @ 100 mls/hr 1X ONCE IV Last administered on 09/22/18at 18:04; Start 09/22/18 at 17:30; Stop 09/22/18 at 17:59; Status DC Vancomycin HCl 1.75 gm/Sodium Chloride 500 ml @ 250 mls/hr 1X ONCE IV Last administered on 09/22/18at 23:28; Start 09/22/18 at 17:30; Stop 09/22/18 at 19:29 ; Status DC Sodium Bicarbonate (Sodium Bicarb Adult 8.4% Syr) 50 meq 1X ONCE IV Last administered on 09/22/18at 18:03; Start 09/22/18 at 17:45; Stop 09/22/18 at 17:46 ; Status DC Norepinephrine Bitartrate 250 ml @ 0 mls/hr 1X ONCE IV Last administered on at 17:51; Start 09/22/18 at 17:45; Stop 09/22/18 at 17:46; Status DC Sodium Bicarbonate 150 meq/Sterile Water 1,150 ml @ 125 mls/hr 1X ONCE IV Last administered on 09/22/18at 18:30; Start 09/22/18 at 18:30; Stop 09/23/18 at 03:41; Status DC Piperacillin Sod/ Tazobactam Sod 3.375 gm/Sodium Chloride 50 ml @ 100 mls/hr Q6HRS IV Last administered on 10/01/18at 05:20; Start 09/23/18 at 00:00; Stop 10/01/18 at 11:20; Status DC Vasopressin 40 unit/Dextrose 102 ml @ 6 mls/hr CONT PRN IV SEE I/O RECORD Last administered on 09/24/18at 12:53; Start 09/22/18 at 18:45; Stop 09/27/18 at 15:12 ; Status DC Fentanyl Citrate (Fentanyl 2ml Vial) 50 mcg 1X ONCE IV ; Start 09/22/18 at 19: 00; Stop 09/22/18 at 19:01; Status DC Midazolam HCl 100 ml @ 5 mls/hr CONT PRN IV SEE I/O RECORD Last administered on 09/25/18at 19:41; Start 09/22/18 at 19:00; Stop 09/29/18 at 11:55; Status DC Lidocaine/Sodium Bicarbonate (Buffered Lidocaine 1%) 4 ml 1X ONCE INJ Last administered on 09/22/18at 19:15; Start 09/22/18 at 19:15; Stop 09/22/18 at 19:18 ; Status DC Heparin Sodium (Porcine) (Heparin Sodium) 2,500 unit 1X ONCE INT CAT Last administered on 09/22/18at 19:15; Start 09/22/18 at 19:15; Stop 09/22/18 at 19:18 ; Status DC Heparin Sodium (Porcine) (Heparin Sodium) 10,000 unit STK-MED ONCE .ROUTE ; Start 09/22/18 at 19:17; Stop 09/22/18 at 19:18; Status DC Sodium Bicarbonate 40 meq/Potassium Chloride 15 meq/ Magnesium Sulfate 5 meq/ Calcium Chloride 2.5 meq/ Bicarbonate Dialysis Soln w/ out KCl 5,050.5172 ml @ 1 ,000 mls/hr Q5H4M IV Last administered on 09/23/18 05:02; Start 09/22/18 at 22 :00; Stop 09/23/18 at 08:43; Status DC Sodium Bicarbonate 40 meq/Potassium Chloride 15 meq/ Magnesium Sulfate 5 meq/ Calcium Chloride 2.5 meq/ Bicarbonate Dialysis Soln w/ out KCl 5,050.5172 ml @ 1 ,000 mls/hr Q5H4M IV Last administered on 09/23/18at 05:02; Start 09/22/18 at 22 :00; Stop 09/23/18 at 08:43; Status DC Sodium Bicarbonate 150 meq/Sterile Water 1,150 ml @ 300 mls/hr Q3H50M IV Last administered on 09/24/18at 05:45; Start 09/22/18 at 22:00; Stop 09/24/18 at 15:44 ; Status DC Etomidate (Amidate) 20 mg STK-MED ONCE IV ; Start 09/22/18 at 20:36; Stop at 20:37; Status DC Rocuronium Baker (Zemuron) 50 mg STK-MED ONCE .ROUTE ; Start 09/22/18 at 20:36 ; Stop 09/22/18 at 20:37; Status DC Norepinephrine Bitartrate 250 ml @ 1.875 mls/ hr CONT PRN IV SEE I/O RECORD Last administered on 09/24/18at 12:54; Start 09/22/18 at 23:30; Stop 09/27/18 at 15:53; Status DC Fentanyl Citrate (Fentanyl 2ml Vial) 50 mcg PRN Q1HR PRN IV PAIN Last administered on 09/29/18at 21:48; Start 09/22/18 at 23:30; Stop 10/02/18 at 07:55; Status DC Epinephrine HCl 4 mg/Sodium Chloride 254 ml @ 26.44 mls/ hr CONT PRN IV SEE I/ O RECORD; Start 09/23/18 at 02:15; Stop 09/27/18 at 15:53; Status DC Albuterol/ Ipratropium (Duoneb) 3 ml RTQID NEB Last administered on 10/04/18at 08 :16; Start 09/23/18 at 08:00; Stop 10/04/18 at 08:56; Status DC Sodium Bicarbonate 40 meq/Potassium Chloride 15 meq/ Magnesium Sulfate 5 meq/ Calcium Chloride 17.5 meq/ Bicarbonate Dialysis Soln w/ out KCl 5,061.2315 ml @ 1,000 mls/hr Q5H4M IV Last administered on 09/23/18at 10:13; Start 09/23/18 at 10:00; Stop 09/23/18 at 10:32; Status DC Sodium Bicarbonate 40 meq/Potassium Chloride 15 meq/ Magnesium Sulfate 5 meq/ Calcium Chloride 17.5 meq/ Bicarbonate Dialysis Soln w/ out KCl 5,061.2315 ml @ 1,000 mls/hr Q5H4M IV Last administered on 09/23/18at 10:12; Start 09/23/18 at 10:00; Stop 09/23/18 at 10:33; Status DC Sodium Bicarbonate 40 meq/Potassium Chloride 15 meq/ Magnesium Sulfate 5 meq/ Calcium Chloride 5 meq/ Bicarbonate Dialysis Soln w/ out KCl 5,052.3029 ml @ 1, 000 mls/hr Q5H4M IV Last administered on 09/23/18at 15:40; Start 09/23/18 at 11: 00; Stop 09/23/18 at 19:28; Status DC Sodium Bicarbonate 40 meq/Potassium Chloride 15 meq/ Magnesium Sulfate 5 meq/ Calcium Chloride 5 meq/ Bicarbonate Dialysis Soln w/ out KCl 5,052.3029 ml @ 1, 000 mls/hr Q5H4M IV Last administered on 09/23/18at 15:39; Start 09/23/18 at 10: 45; Stop 09/23/18 at 19:28; Status DC Vancomycin HCl 1 gm/Sodium Chloride 250 ml @ 250 mls/hr Q24H IV Last administered on 09/24/18at 21:38; Start 09/23/18 at 21:00; Stop 09/25/18 at 12:02 ; Status DC Vancomycin HCl (Vancomycin Trough Level) 1 each 1X ONCE MC Last administered on 09/24/18at 20:30; Start 09/24/18 at 20:30; Stop 09/24/18 at 20:31; Status DC Potassium Chloride 15 meq/ Magnesium Sulfate 5 meq/Calcium Chloride 5 meq/ Bicarbonate Dialysis Soln w/ out KCl 5,012.3029 ml @ 1,000 mls/hr Q5H1M IV Last administered on 09/23/18at 23:50; Start 09/23/18 at 20:30; Stop 09/24/18 at 04:06; Status DC Potassium Chloride 35 meq/ Magnesium Sulfate 5 meq/Calcium Chloride 5 meq/ Bicarbonate Dialysis Soln w/ out KCl 5,022.3029 ml @ 1,000 mls/hr Q5H2M IV Last administered on 09/23/18at 23:49; Start 09/23/18 at 20:30; Stop 09/24/18 at 04:06; Status DC Fentanyl Citrate 30 ml @ 0 mls/hr CONT PRN IV SEE PROTOCOL Last administered on 09/27/18at 07:03; Start 09/23/18 at 22:30; Stop 09/27/18 at 15:53; Status DC Chlorhexidine Gluconate (Peridex) 15 ml BID MM Last administered on 09/24/18at 21:41; Start 09/24/18 at 09:00; Stop 09/25/18 at 09:30; Status DC Potassium Chloride 15 meq/ Magnesium Sulfate 2.5 meq/Calcium Chloride 5 meq/ Bicarbonate Dialysis Soln w/ out KCl 5,011.6871 ml @ 1,000 mls/hr Q5H1M IV Last administered on 09/24/18at 04:34; Start 09/24/18 at 04:30; Stop 09/24/18 at 17:00; Status DC Potassium Chloride 35 meq/ Magnesium Sulfate 2.5 meq/Calcium Chloride 5 meq/ Bicarbonate Dialysis Soln w/ out KCl 5,021.6871 ml @ 1,000 mls/hr Q5H2M IV Last administered on 09/24/18at 04:34; Start 09/24/18 at 04:30; Stop 09/24/18 at 17:00; Status DC Sodium Chloride 90 meq/Potassium Chloride 50 meq/ Potassium Phosphate 13.6 mmol/ Magnesium Sulfate 10 meq/ Calcium Gluconate 10 meq/ Multivitamins 10 ml/Chromium / Copper/Manganese/ Seleni/Zn 1 ml/ Total Parenteral Nutrition/Amino Acids/ Dextrose/ Fat Emulsion Intravenous 87.0013 ml @ 3.625 mls/hr TPN CONT IV ; Start 09/24/18 at 22:00; Stop 09/25/18 at 21:59; Status UNV Info (Tpn Per Pharmacy) 1 each PRN DAILY PRN MC SEE COMMENTS Last administered on 10/06/18at 13:31; Start 09/24/18 at 08:15 Sodium Acetate 45 meq/Potassium Acetate 25 meq/ Potassium Phosphate 13.6 mmol/ Magnesium Sulfate 10 meq/ Calcium Gluconate 10 meq/ Multivitamins 10 ml/Chromium / Copper/Manganese/ Seleni/Zn 1 ml/ Total Parenteral Nutrition/Amino Acids/ Dextrose/ Fat Emulsion Intravenous 1,422 ml @ 59.25 mls/ hr TPN CONT IV Last administered on 09/24/18at 22:50; Start 09/24/18 at 22:00; Stop 09/25/18 at 21:59 ; Status DC Potassium Chloride/Water 50 ml @ 50 mls/hr Q1H IV Last administered on at 10:39; Start 09/25/18 at 09:00; Stop 09/25/18 at 10:59; Status DC Insulin Human Lispro (HumaLOG) 0-5 UNITS Q6HRS SQ Last administered on at 17:56; Start 09/25/18 at 12:00 Dextrose (Dextrose 50%-Water Syringe) 12.5 gm PRN Q15MIN PRN IV SEE COMMENTS; Start 09/25/18 at 09:30 Famotidine (Pepcid Vial) 20 mg QHS IVP Last administered on 09/30/18at 20:55; Start 09/25/18 at 21:00; Stop 10/01/18 at 11:50; Status DC Linezolid/Dextrose 300 ml @ 300 mls/hr Q12HR IV Last administered on 09/28/18at 08:52; Start 09/25/18 at 13:00; Stop 09/28/18 at 17:06; Status DC Pantoprazole Sodium (PROTONIX VIAL for IV PUSH) 40 mg DAILYAC IVP ; Start at 13:00; Stop 09/25/18 at 13:00; Status DC Sodium Chloride 45 meq/Potassium Acetate 35 meq/ Potassium Phosphate 17 mmol/ Magnesium Sulfate 5 meq/Calcium Gluconate 10 meq/ Multivitamins 10 ml/Chromium/ Copper/Manganese/ Seleni/Zn 1 ml/ Total Parenteral Nutrition/Amino Acids/ Dextrose/ Fat Emulsion Intravenous 1,512 ml @ 63 mls/hr TPN CONT IV Last administered on 09/25/18at 22:10; Start 09/25/18 at 22:00; Stop 09/26/18 at 13:53 ; Status DC Sodium Phosphate 10 mmol/Dextrose 253.3333 ml @ 63.333 m... 1X ONCE IV Last administered on 09/25/18at 16:16; Start 09/25/18 at 16:00; Stop 09/25/18 at 19:59 ; Status DC Amitriptyline HCl (Elavil) 25 mg QHS PO ; Start 09/26/18 at 21:00; Status UNV Non-Formulary Medication (Desvenlafaxine Succinate (Pristiq Er)) 1 tab DAILY PO ; Start 09/27/18 at 09:00; Status UNV Haloperidol (Haldol) 10 mg HS PO Last administered on 09/26/18at 21:20; Start at 21:00; Stop 09/27/18 at 21:07; Status DC Sodium Chloride 45 meq/Potassium Acetate 35 meq/ Potassium Phosphate 17 mmol/ Magnesium Sulfate 5 meq/Calcium Gluconate 10 meq/ Multivitamins 10 ml/Chromium/ Copper/Manganese/ Seleni/Zn 1 ml/ Total Parenteral Nutrition/Amino Acids/ Dextrose/ Fat Emulsion Intravenous 1,512 ml @ 63 mls/hr TPN CONT IV ; Start at 22:00; Stop 09/27/18 at 21:59; Status Cancel Sodium Chloride 45 meq/Potassium Acetate 35 meq/ Potassium Phosphate 17 mmol/ Magnesium Sulfate 5 meq/Calcium Gluconate 10 meq/ Multivitamins 10 ml/Chromium/ Copper/Manganese/ Seleni/Zn 1 ml/ Total Parenteral Nutrition/Amino Acids/ Dextrose/ Fat Emulsion Intravenous 1,512 ml @ 63 mls/hr TPN CONT IV Last administered on 09/26/18at 21:31; Start 09/26/18 at 22:00; Stop 09/27/18 at 21:59 ; Status DC Lorazepam (Ativan) 0.5 mg PRN Q6HRS PRN PO ANXIETY / AGITATION Last administered on 09/30/18at 20:54; Start 09/27/18 at 08:15; Stop 10/03/18 at 12:14; Status DC Sodium Chloride 45 meq/Potassium Acetate 35 meq/ Potassium Phosphate 17 mmol/ Magnesium Sulfate 5 meq/Calcium Gluconate 10 meq/ Multivitamins 10 ml/Chromium/ Copper/Manganese/ Seleni/Zn 1 ml/ Total Parenteral Nutrition/Amino Acids/ Dextrose/ Fat Emulsion Intravenous 1,512 ml @ 63 mls/hr TPN CONT IV Last administered on 09/27/18at 21:34; Start 09/27/18 at 22:00; Stop 09/28/18 at 21:59 ; Status DC Haloperidol Lactate (Haldol Inj) 10 mg HS IVP Last administered on 09/27/18at 21 :33; Start 09/27/18 at 22:00; Stop 09/28/18 at 07:58; Status DC Lorazepam (Ativan) 0.5 mg PRN Q6HRS PRN IV ANXIETY / AGITATION Last administered on 10/06/18at 16:38; Start 09/27/18 at 21:15 Haloperidol (Haldol) 10 mg PRN QHS PRN PO AGITATION IF TAKING PO; Start at 21:15; Stop 09/28/18 at 08:02; Status DC Haloperidol (Haldol) 5 mg QHS PO Last administered on 10/02/18at 22:20; Start 09/28/18 at 21:00; Stop 10/03/18 at 12:14; Status DC Sodium Chloride 45 meq/Potassium Acetate 35 meq/ Potassium Phosphate 17 mmol/ Magnesium Sulfate 5 meq/Calcium Gluconate 10 meq/ Multivitamins 10 ml/Chromium/ Copper/Manganese/ Seleni/Zn 1 ml/ Total Parenteral Nutrition/Amino Acids/ Dextrose/ Fat Emulsion Intravenous 1,512 ml @ 63 mls/hr TPN CONT IV Last administered on 09/28/18at 23:00; Start 09/28/18 at 22:00; Stop 09/29/18 at 21:59; Status DC Ondansetron HCl (Zofran) 4 mg PRN Q6HRS PRN IV NAUSEA/VOMITING; Start 09/29/18 at 11:30 Sodium Chloride 40 meq/Potassium Acetate 35 meq/ Potassium Phosphate 17 mmol/ Magnesium Sulfate 5 meq/Calcium Gluconate 10 meq/ Multivitamins 10 ml/Chromium/ Copper/Manganese/ Seleni/Zn 1 ml/ Total Parenteral Nutrition/Amino Acids/ Dextrose/ Fat Emulsion Intravenous 1,512 ml @ 63 mls/hr TPN CONT IV Last administered on 09/29/18at 21:18; Start 09/29/18 at 22:00; Stop 09/30/18 at 21:59; Status DC Haloperidol Lactate (Haldol Inj) 5 mg 1X ONCE IM Last administered on 15:15; Start 09/29/18 at 15:15; Stop 09/29/18 at 15:16; Status DC Sodium Chloride 30 meq/Sodium Acetate 10 meq/ Potassium Acetate 35 meq/ Potassium Phosphate 17 mmol/ Magnesium Sulfate 5 meq/Calcium Gluconate 10 meq/ Multivitamins 10 ml/Chromium/ Copper/Manganese/ Seleni/Zn 1 ml/ Total Parenteral Nutrition/Amino Acids/Dextrose/ Fat Emulsion Intravenous 1,512 ml @ 63 mls/hr TPN CONT IV Last administered on 09/30/18 20:56; Start 09/30/18 at 22 :00; Stop 10/01/18 at 21:59; Status DC Acetaminophen (Tylenol) 650 mg PRN Q6HRS PRN PO FEVER Last administered on 15:22; Start 09/30/18 at 14:00 Meropenem 500 mg/ Sodium Chloride 50 ml @ 100 mls/hr Q8HRS IV Last administered on 10/03/18 06:00; Start 10/01/18 at 14:00; Stop 10/03/18 at 12:38; Status DC Vancomycin HCl (Vanco Per Pharmacy) 1 each PRN DAILY PRN MC SEE COMMENTS Last administered on 10/02/18 15:33; Start 10/01/18 at 11:30; Stop 10/03/18 at 12:42; Status DC Micafungin Sodium 100 mg/Dextrose 100 ml @ 100 mls/hr Q24H IV Last administered on 10/04/18 11:09; Start 10/01/18 at 12:00; Stop 10/04/18 at 18:51; Status DC Vancomycin HCl 1.75 gm/Sodium Chloride 500 ml @ 250 mls/hr 1X ONCE IV Last administered on 10/01/18 15:01; Start 10/01/18 at 12:00; Stop 10/01/18 at 13:59; Status DC Famotidine (Pepcid) 20 mg QHS PO Last administered on 10/06/18 20:19; Start 10/01/18 at 21:00 Sodium Chloride 30 meq/Sodium Acetate 10 meq/ Potassium Acetate 35 meq/ Potassium Phosphate 17 mmol/ Magnesium Sulfate 10 meq/Calcium Gluconate 10 meq/ Multivitamins 10 ml/Chromium/ Copper/Manganese/ Seleni/Zn 1 ml/ Total Parenteral Nutrition/Amino Acids/Dextrose/ Fat Emulsion Intravenous 1,512 ml @ 63 mls/hr TPN CONT IV Last administered on 10/01/18 22:10; Start 10/01/18 at 22 :00; Stop 10/02/18 at 21:59; Status DC Lactobacillus Rhamnosus (Culturelle) 1 cap BID PO Last administered on 20:19; Start 10/01/18 at 21:00 Vancomycin HCl 1 gm/Sodium Chloride 250 ml @ 250 mls/hr Q24H IV Last administered on 10/02/18 15:46; Start 10/02/18 at 15:00; Stop 10/03/18 at 12:38; Status DC Vancomycin HCl (Vancomycin Trough Level) 1 each 1X ONCE MC ; Start 10/03/18 at 14:30; Stop 10/03/18 at 14:30; Status DC Sodium Chloride 30 meq/Sodium Acetate 10 meq/ Potassium Acetate 35 meq/ Potassium Phosphate 17 mmol/ Magnesium Sulfate 10 meq/Calcium Gluconate 10 meq/ Multivitamins 10 ml/Chromium/ Copper/Manganese/ Seleni/Zn 1 ml/ Total Parenteral Nutrition/Amino Acids/Dextrose/ Fat Emulsion Intravenous 1,512 ml @ 63 mls/hr TPN CONT IV Last administered on 10/02/18 22:21; Start 10/02/18 at 22 :00; Stop 10/03/18 at 21:59; Status DC Magnesium Sulfate/ Dextrose 100 ml @ 100 mls/hr 1X ONCE IV Last administered on 10/02/18 17:18; Start 10/02/18 at 15:30; Stop 10/02/18 at 16:29; Status DC Haloperidol (Haldol) 10 mg QHS PO Last administered on 10/04/18 22:00; Start at 21:00; Stop 10/05/18 at 07:49; Status DC Lorazepam (Ativan) 0.5 mg TID PO Last administered on 10/04/18 21:59; Start 10/03/18 at 14:00; Stop 10/05/18 at 07:49; Status DC Meropenem 1 gm/ Sodium Chloride 100 ml @ 200 mls/hr Q8HRS IV Last administered on 10/07/18at 05:38; Start 10/03/18 at 14:00 Sodium Chloride 30 meq/Sodium Acetate 10 meq/ Potassium Acetate 10 meq/Sodium Phosphate 13.6 mmol/Magnesium Sulfate 10 meq/ Calcium Gluconate 10 meq/ Multivitamins 10 ml/Chromium/ Copper/Manganese/ Seleni/Zn 1 ml/ Total Parenteral Nutrition/Amino Acids/Dextrose/ Fat Emulsion Intravenous 1,512 ml @ 63 mls/hr TPN CONT IV Last administered on 10/03/18at 20:47; Start 10/03/18 at 22 :00; Stop 10/04/18 at 21:59; Status DC Sodium Chloride 30 meq/Sodium Acetate 10 meq/ Potassium Acetate 10 meq/Sodium Phosphate 13.6 mmol/Magnesium Sulfate 10 meq/ Calcium Gluconate 10 meq/ Multivitamins 10 ml/Chromium/ Copper/Manganese/ Seleni/Zn 1 ml/ Total Parenteral Nutrition/Amino Acids/Dextrose/ Fat Emulsion Intravenous 1,512 ml @ 63 mls/hr TPN CONT IV Last administered on 10/04/18at 22:00; Start 10/04/18 at 22 :00; Stop 10/05/18 at 21:59; Status DC Haloperidol (Haldol) 10 mg BID PO Last administered on 10/06/18at 20:19; Start at 09:00 Lorazepam (Ativan) 1 mg TID PO Last administered on 10/06/18at 20:19; Start at 09:00 Sodium Chloride 30 meq/Sodium Acetate 10 meq/ Potassium Acetate 10 meq/Sodium Phosphate 13.6 mmol/Magnesium Sulfate 10 meq/ Calcium Gluconate 10 meq/ Multivitamins 10 ml/Chromium/ Copper/Manganese/ Seleni/Zn 1 ml/ Total Parenteral Nutrition/Amino Acids/Dextrose/ Fat Emulsion Intravenous 1,512 ml @ 63 mls/hr TPN CONT IV Last administered on 10/05/18at 21:27; Start 10/05/18 at 22 :00; Stop 10/06/18 at 21:59; Status DC Sodium Chloride 20 meq/Sodium Acetate 20 meq/ Potassium Acetate 10 meq/Sodium Phosphate 13.6 mmol/Magnesium Sulfate 10 meq/ Calcium Gluconate 10 meq/ Multivitamins 10 ml/Chromium/ Copper/Manganese/ Seleni/Zn 1 ml/ Total Parenteral Nutrition/Amino Acids/Dextrose/ Fat Emulsion Intravenous 1,512 ml @ 63 mls/hr TPN CONT IV Last administered on 10/06/18at 22:11; Start 10/06/18 at 22 :00; Stop 10/07/18 at 21:59 Active Scripts Active Reported [iron] 325 Mg PO Haloperidol 10 Mg Tablet 10 Mg PO QHS Ventolin Hfa Inhaler (Albuterol Sulfate) 18 Gm Hfa.aer.ad 2 Puff INH Q4HRS PRN Pristiq Er (Desvenlafaxine Succinate) 50 Mg Tab.er.24h 1 Tab PO DAILY Amitriptyline Hcl 25 Mg Tablet 1 Tab PO QHS Diazepam 5 Mg Tablet 5 Mg PO TID Gabapentin (Gabapentin) 300 Mg Capsule 300 Mg PO TID Vitals/I & O Vital Sign - Last 24 Hours 10/06/18 10/06/18 10/06/18 10/06/18 15:04 19:00 20:00 23:00 Temp 98.5 98.4 98.7 98.5 98.4 98.7 Pulse 80 104 88 Resp 19 16 16 B/P (MAP) 120/85 (97) 101/64 (76) 121/58 (79) Pulse Ox 97 97 100 O2 Delivery Room Air Room Air Room Air Room Air 10/07/18 10/07/18 10/07/18 03:00 07:00 11:00 Temp 99.7 98.1 97.5 99.7 98.1 97.5 Pulse 85 107 114 Resp 18 18 18 B/P (MAP) 119/45 (69) 123/68 (86) 145/63 (90) Pulse Ox 99 99 99 O2 Delivery Room Air Room Air Room Air Intake and Output 10/06/18 10/06/18 10/07/18 15:00 23:00 07:00 Intake Total 240 ml 0 ml Output Total 200 ml Balance -200 ml 240 ml 0 ml MILY COOK MD Oct 07, 2018 11:36
[2018-10-07] MEDS: LORazepam 1 MG TABLET PO SCH ×3 (11:38→21:10)
[2018-10-07] MEDS: LACTOBACILLUS RHAMNOSUS GG 1 CAPSULE. PO SCH ×2 (11:39→21:10)
[2018-10-07] MEDS: HALOPERIDOL 5 MG TABLET. PO SCH ×2 (11:39→21:10)
[2018-10-07] MEDS: TPN PER PHARMACY MC PRN (12:13)
--- NOTE | 2018-10-07 12:13 | NUR ---
Pharmacy TPN Dosing Note S: ISABELL BUCIO is a 63 year old F Currently receiving Central Continuous TPN started 09/24/18 B:Pertinent PMH: recent critical illness, continued poor po intake LABS: Sodium: 141 Potassium: 4.2 Chloride: 109 Calcium: 8.5 Corrected Calcium: 9.62 Magnesium: 1.9 CO2: 20 SCr: 0.7 Glucose: 99-165 Albumin: 2.6 AST: 80 (09/23) ALT: 39 (09/23) TPN FORMULA: TPN TYPE: Central Continuous AMINO ACIDS: 60 gm DEXTROSE: 225 gm LIPIDS: 20 gm SODIUM CHLORIDE: 20 mEq SODIUM ACETATE: 20 mEq SODIUM PHOSPHATE: 13.6 mmol POTASSIUM CHLORIDE: - mEq POTASSIUM ACETATE: 10 mEq POTASSIUM PHOSPHATE: - mmol MAGNESIUM: 10 mEq CALCIUM: 10 mEq INSULIN: - units MULTIPLE VITAMIN: 10 ml TRACE ELEMENTS: MTE5 1ML ml(s) TPN PLAN: 10/07 cont same R: Continue TPN Will monitor electrolytes, glucose, and tolerance to TPN. REGINALDO ORR [facility], 10/07/18 [id number]
[2018-10-07 15:25] VITALS: BP 147/70
[2018-10-07] MEDS ORDERED: HALOPERIDOL 5 MG TABLET. PO ONE (16:30)
[2018-10-07 19:00] VITALS: BP 128/56
[2018-10-07] MEDS: FAMOTIDINE 20 MG TABLET. PO SCH (21:10)
[2018-10-07] MEDS ORDERED: TOTAL PARENTERAL NUTRITION IV SCH ×11 (22:00)
[2018-10-07] MEDS ORDERED: DEXTROSE 70% IV SCH ×11 (22:00)
[2018-10-07] MEDS ORDERED: AMINO ACID IV SCH ×11 (22:00)
[2018-10-07] MEDS ORDERED: [UNRECOGNIZED DRUG - OTHER] IV SCH ×11 (22:00)
[2018-10-07 23:00] VITALS: BP 119/55
[2018-10-08 03:00] VITALS: BP 111/58
[2018-10-08 05:03] LABS: CALCIUM 8.9 mg/dL (8.5-10.1); CREATININE 0.6 mg/dL (0.6-1.0); GFR 100.6; PHOSPHORUS 3.7 mg/dL (2.6-4.7); POTASSIUM 3.9 mmol/L (3.5-5.1)
[2018-10-08] MEDS: MEROPENEM 1 GM in IV NORMAL SALINE 100ML 100 ML IV SCH (05:46)
[2018-10-08] MEDS: INSULIN LISPRO 300 UNITS/3 ML INSULN.PEN. SQ SCH ×4 (05:48→18:00)
[2018-10-08 07:00] VITALS: BP 134/69
[2018-10-08] MEDS: LACTOBACILLUS RHAMNOSUS GG 1 CAPSULE. PO SCH ×2 (09:00→21:16)
--- NOTE | 2018-10-08 09:59 | NUR ---
LILA following pt. Luci reported they are not able to accept pt as they are still understaffed and pt is 1:1. Discussed with Physician and Physician agreeable with referral being sent to [facility]. LILA phoned and faxed referral to [facility]. LILA notified Bridget at [facility] pt is ready to dc if they accept. Pt acceptance and admission pending. Will continue to follow. REYNA notified. Addendum: 10/08/18 at 1033 by RAKAN SHARP Spoke with Sol at [facility]. Clinicals are being reviewed but they reported they are not able to take pt if she is 1:1. Discussed with Physician and orders for 1:1 will be discontinued. RN aware. Will continue to follow.
--- NOTE | 2018-10-08 10:01 | PDOC ---
PROGRESS NOTES Subjective Subjective Patient sleeping, not awakened for exam. Objective Objective Vital Signs Date Time Temp Pulse Resp B/P (MAP) Pulse Ox O2 Delivery O2 Flow Rate FiO2 10/08/18 07:00 97.8 103 20 134/69 (90) 97 Room Air 97.8 10/06/18 08:17 2.0 Intake and Output 10/08/18 06:59 Intake Total 695 ml Balance 695 ml Intake Oral 695 ml # Voids 4 # Bowel Movements 3 Physical Exam Abdomen: Normal bowel sounds, Soft, No tenderness Heart: Regular rate Extremities: No edema General: No acute distress Lungs: Clear to auscultation Plan Plan of Care 1. Bacteremia - stable, afebrile. Repeat cultures all negative to date. Continue Meropenem per ID. 2. schizophrenia with metabolic encephalopathy - slowly improved, continue present medication. Continue 1-to-1 at present, may be able to discontinue this as patient's ability to cooperate with her care improves. 3. dysphagia - continue TPN and dysphagia diet. Patient still taking very little po. 4. debility - transfer to LTAC when bed available. Comment Review of Relevant I have reviewed the following items michelle (where applicable) has been applied. Labs Laboratory Tests Test 10/06/18 12:00 10/06/18 17:48 10/06/18 23:07 10/07/18 06:15 Glucose (Fingerstick) 118 mg/dL (70-99) 129 mg/dL (70-99) 108 mg/dL (70-99) White Blood Count 8.6 x10^3/uL (4.0-11.0) Red Blood Count 3.01 x10^6/uL (3.50-5.40) Hemoglobin 9.2 g/dL (12.0-15.5) Hematocrit 27.6 % (36.0-47.0) Mean Corpuscular Volume 92 fL (79-100) Mean Corpuscular Hemoglobin 30 pg (25-35) Mean Corpuscular Hemoglobin Concent 33 g/dL (31-37) Red Cell Distribution Width 16.9 % (11.5-14.5) Platelet Count 362 x10^3/uL (140-400) Neutrophils (%) (Auto) 59 % (31-73) Lymphocytes (%) (Auto) 21 % (24-48) Monocytes (%) (Auto) 14 % (0-9) Eosinophils (%) (Auto) 4 % (0-3) Basophils (%) (Auto) 2 % (0-3) Neutrophils # (Auto) 5.1 x10^3uL (1.8-7.7) Lymphocytes # (Auto) 1.8 x10^3/uL (1.0-4.8) Monocytes # (Auto) 1.2 x10^3/uL (0.0-1.1) Eosinophils # (Auto) 0.4 x10^3/uL (0.0-0.7) Basophils # (Auto) 0.2 x10^3/uL (0.0-0.2) Test 10/07/18 12:06 10/07/18 19:57 10/07/18 23:47 10/08/18 03:58 Glucose (Fingerstick) 133 mg/dL (70-99) 80 mg/dL (70-99) 121 mg/dL (70-99) Sodium Level 143 mmol/L (136-145) Potassium Level 3.9 mmol/L (3.5-5.1) Chloride Level 108 mmol/L (98-107) Carbon Dioxide Level 22 mmol/L (21-32) Anion Gap 13 (6-14) Blood Urea Nitrogen 17 mg/dL (7-20) Creatinine 0.6 mg/dL (0.6-1.0) Estimated GFR (Cockcroft-Gault) 100.6 Glucose Level 98 mg/dL (70-99) Calcium Level 8.9 mg/dL (8.5-10.1) Phosphorus Level 3.7 mg/dL (2.6-4.7) Magnesium Level 2.0 mg/dL (1.8-2.4) Test 10/08/18 05:40 Glucose (Fingerstick) 118 mg/dL (70-99) Laboratory Tests Test 10/07/18 12:06 10/07/18 19:57 10/07/18 23:47 10/08/18 03:58 Glucose (Fingerstick) 133 mg/dL (70-99) 80 mg/dL (70-99) 121 mg/dL (70-99) Sodium Level 143 mmol/L (136-145) Potassium Level 3.9 mmol/L (3.5-5.1) Chloride Level 108 mmol/L (98-107) Carbon Dioxide Level 22 mmol/L (21-32) Anion Gap 13 (6-14) Blood Urea Nitrogen 17 mg/dL (7-20) Creatinine 0.6 mg/dL (0.6-1.0) Estimated GFR (Cockcroft-Gault) 100.6 Glucose Level 98 mg/dL (70-99) Calcium Level 8.9 mg/dL (8.5-10.1) Phosphorus Level 3.7 mg/dL (2.6-4.7) Magnesium Level 2.0 mg/dL (1.8-2.4) Test 10/08/18 05:40 Glucose (Fingerstick) 118 mg/dL (70-99) Microbiology 10/01/18 Blood Culture - Final, Complete NO GROWTH AFTER 5 DAYS 09/25/18 - Final, Complete 09/25/18 - Final, Complete 09/25/18 - Final, Complete 09/25/18 Gram Stain Evaluation - Final, Complete 09/25/18 Sputum Culture - Final, Complete 09/25/18 Sputum Result 1 - Final, Complete 09/25/18 Sputum Result 2 - Final, Complete 10/01/18 Urine Culture - Final, Complete 10/01/18 Urine Culture Result 1 (MELODY) - Final, Complete Medications Current Medications Sodium Chloride 1,000 ml @ 1,000 mls/hr 1X ONCE IV Last administered on at 17:18; Start 09/22/18 at 17:15; Stop 09/22/18 at 18:14; Status DC Pantoprazole Sodium 80 mg/ Sodium Chloride 100 ml @ 10 mls/hr Q10H IV Last administered on 09/24/18at 05:46; Start 09/22/18 at 17:15; Stop 09/24/18 at 15:43 ; Status DC Pantoprazole Sodium (PROTONIX VIAL for IV PUSH) 80 mg 1X ONCE IVP Last administered on 09/22/18at 17:39; Start 09/22/18 at 17:15; Stop 09/22/18 at 17:17 ; Status DC Ceftriaxone Sodium (Rocephin) 1 gm 1X ONCE IVP ; Start 09/22/18 at 17:30; Stop 09/22/18 at 17:30; Status DC Sodium Chloride 1,000 ml @ 1,000 mls/hr 1X ONCE IV Last administered on at 17:27; Start 09/22/18 at 17:30; Stop 09/22/18 at 18:29; Status DC Vancomycin HCl (Vanco Per Pharmacy) 1 each PRN DAILY PRN MC SEE COMMENTS Last administered on 09/24/18at 21:37; Start 09/22/18 at 17:30; Stop 09/25/18 at 12:02 ; Status DC Piperacillin Sod/ Tazobactam Sod (Zosyn Per Pharmacy) 1 each PRN DAILY PRN MC SEE COMMENTS; Start 09/22/18 at 17:30; Stop 10/03/18 at 11:06; Status DC Piperacillin Sod/ Tazobactam Sod 3.375 gm/Sodium Chloride 50 ml @ 100 mls/hr 1X ONCE IV Last administered on 09/22/18at 18:04; Start 09/22/18 at 17:30; Stop 09/22/18 at 17:59; Status DC Vancomycin HCl 1.75 gm/Sodium Chloride 500 ml @ 250 mls/hr 1X ONCE IV Last administered on 09/22/18at 23:28; Start 09/22/18 at 17:30; Stop 09/22/18 at 19:29 ; Status DC Sodium Bicarbonate (Sodium Bicarb Adult 8.4% Syr) 50 meq 1X ONCE IV Last administered on 09/22/18 18:03; Start 09/22/18 at 17:45; Stop 09/22/18 at 17:46 ; Status DC Norepinephrine Bitartrate 250 ml @ 0 mls/hr 1X ONCE IV Last administered on at 17:51; Start 09/22/18 at 17:45; Stop 09/22/18 at 17:46; Status DC Sodium Bicarbonate 150 meq/Sterile Water 1,150 ml @ 125 mls/hr 1X ONCE IV Last administered on 09/22/18at 18:30; Start 09/22/18 at 18:30; Stop 09/23/18 at 03:41; Status DC Piperacillin Sod/ Tazobactam Sod 3.375 gm/Sodium Chloride 50 ml @ 100 mls/hr Q6HRS IV Last administered on 10/01/18at 05:20; Start 09/23/18 at 00:00; Stop 10/01/18 at 11:20; Status DC Vasopressin 40 unit/Dextrose 102 ml @ 6 mls/hr CONT PRN IV SEE I/O RECORD Last administered on 09/24/18at 12:53; Start 09/22/18 at 18:45; Stop 09/27/18 at 15:12 ; Status DC Fentanyl Citrate (Fentanyl 2ml Vial) 50 mcg 1X ONCE IV ; Start 09/22/18 at 19: 00; Stop 09/22/18 at 19:01; Status DC Midazolam HCl 100 ml @ 5 mls/hr CONT PRN IV SEE I/O RECORD Last administered on 09/25/18at 19:41; Start 09/22/18 at 19:00; Stop 09/29/18 at 11:55; Status DC Lidocaine/Sodium Bicarbonate (Buffered Lidocaine 1%) 4 ml 1X ONCE INJ Last administered on 09/22/18at 19:15; Start 09/22/18 at 19:15; Stop 09/22/18 at 19:18 ; Status DC Heparin Sodium (Porcine) (Heparin Sodium) 2,500 unit 1X ONCE INT CAT Last administered on 09/22/18at 19:15; Start 09/22/18 at 19:15; Stop 09/22/18 at 19:18 ; Status DC Heparin Sodium (Porcine) (Heparin Sodium) 10,000 unit STK-MED ONCE .ROUTE ; Start 09/22/18 at 19:17; Stop 09/22/18 at 19:18; Status DC Sodium Bicarbonate 40 meq/Potassium Chloride 15 meq/ Magnesium Sulfate 5 meq/ Calcium Chloride 2.5 meq/ Bicarbonate Dialysis Soln w/ out KCl 5,050.5172 ml @ 1 ,000 mls/hr Q5H4M IV Last administered on 09/23/18at 05:02; Start 09/22/18 at 22 :00; Stop 09/23/18 at 08:43; Status DC Sodium Bicarbonate 40 meq/Potassium Chloride 15 meq/ Magnesium Sulfate 5 meq/ Calcium Chloride 2.5 meq/ Bicarbonate Dialysis Soln w/ out KCl 5,050.5172 ml @ 1 ,000 mls/hr Q5H4M IV Last administered on 09/23/18 05:02; Start 09/22/18 at 22 :00; Stop 09/23/18 at 08:43; Status DC Sodium Bicarbonate 150 meq/Sterile Water 1,150 ml @ 300 mls/hr Q3H50M IV Last administered on 09/24/18at 05:45; Start 09/22/18 at 22:00; Stop 09/24/18 at 15:44 ; Status DC Etomidate (Amidate) 20 mg STK-MED ONCE IV ; Start 09/22/18 at 20:36; Stop at 20:37; Status DC Rocuronium Kaiser (Zemuron) 50 mg STK-MED ONCE .ROUTE ; Start 09/22/18 at 20:36 ; Stop 09/22/18 at 20:37; Status DC Norepinephrine Bitartrate 250 ml @ 1.875 mls/ hr CONT PRN IV SEE I/O RECORD Last administered on 09/24/18at 12:54; Start 09/22/18 at 23:30; Stop 09/27/18 at 15:53; Status DC Fentanyl Citrate (Fentanyl 2ml Vial) 50 mcg PRN Q1HR PRN IV PAIN Last administered on 09/29/18at 21:48; Start 09/22/18 at 23:30; Stop 10/02/18 at 07:55; Status DC Epinephrine HCl 4 mg/Sodium Chloride 254 ml @ 26.44 mls/ hr CONT PRN IV SEE I/ O RECORD; Start 09/23/18 at 02:15; Stop 09/27/18 at 15:53; Status DC Albuterol/ Ipratropium (Duoneb) 3 ml RTQID NEB Last administered on 10/04/18at 08 :16; Start 09/23/18 at 08:00; Stop 10/04/18 at 08:56; Status DC Sodium Bicarbonate 40 meq/Potassium Chloride 15 meq/ Magnesium Sulfate 5 meq/ Calcium Chloride 17.5 meq/ Bicarbonate Dialysis Soln w/ out KCl 5,061.2315 ml @ 1,000 mls/hr Q5H4M IV Last administered on 09/23/18at 10:13; Start 09/23/18 at 10:00; Stop 09/23/18 at 10:32; Status DC Sodium Bicarbonate 40 meq/Potassium Chloride 15 meq/ Magnesium Sulfate 5 meq/ Calcium Chloride 17.5 meq/ Bicarbonate Dialysis Soln w/ out KCl 5,061.2315 ml @ 1,000 mls/hr Q5H4M IV Last administered on 09/23/18at 10:12; Start 09/23/18 at 10:00; Stop 09/23/18 at 10:33; Status DC Sodium Bicarbonate 40 meq/Potassium Chloride 15 meq/ Magnesium Sulfate 5 meq/ Calcium Chloride 5 meq/ Bicarbonate Dialysis Soln w/ out KCl 5,052.3029 ml @ 1, 000 mls/hr Q5H4M IV Last administered on 09/23/18at 15:40; Start 09/23/18 at 11: 00; Stop 09/23/18 at 19:28; Status DC Sodium Bicarbonate 40 meq/Potassium Chloride 15 meq/ Magnesium Sulfate 5 meq/ Calcium Chloride 5 meq/ Bicarbonate Dialysis Soln w/ out KCl 5,052.3029 ml @ 1, 000 mls/hr Q5H4M IV Last administered on 09/23/18at 15:39; Start 09/23/18 at 10: 45; Stop 09/23/18 at 19:28; Status DC Vancomycin HCl 1 gm/Sodium Chloride 250 ml @ 250 mls/hr Q24H IV Last administered on 09/24/18at 21:38; Start 09/23/18 at 21:00; Stop 09/25/18 at 12:02 ; Status DC Vancomycin HCl (Vancomycin Trough Level) 1 each 1X ONCE MC Last administered on 09/24/18at 20:30; Start 09/24/18 at 20:30; Stop 09/24/18 at 20:31; Status DC Potassium Chloride 15 meq/ Magnesium Sulfate 5 meq/Calcium Chloride 5 meq/ Bicarbonate Dialysis Soln w/ out KCl 5,012.3029 ml @ 1,000 mls/hr Q5H1M IV Last administered on 09/23/18at 23:50; Start 09/23/18 at 20:30; Stop 09/24/18 at 04:06; Status DC Potassium Chloride 35 meq/ Magnesium Sulfate 5 meq/Calcium Chloride 5 meq/ Bicarbonate Dialysis Soln w/ out KCl 5,022.3029 ml @ 1,000 mls/hr Q5H2M IV Last administered on 09/23/18at 23:49; Start 09/23/18 at 20:30; Stop 09/24/18 at 04:06; Status DC Fentanyl Citrate 30 ml @ 0 mls/hr CONT PRN IV SEE PROTOCOL Last administered on 09/27/18at 07:03; Start 09/23/18 at 22:30; Stop 09/27/18 at 15:53; Status DC Chlorhexidine Gluconate (Peridex) 15 ml BID MM Last administered on 09/24/18at 21:41; Start 09/24/18 at 09:00; Stop 09/25/18 at 09:30; Status DC Potassium Chloride 15 meq/ Magnesium Sulfate 2.5 meq/Calcium Chloride 5 meq/ Bicarbonate Dialysis Soln w/ out KCl 5,011.6871 ml @ 1,000 mls/hr Q5H1M IV Last administered on 09/24/18at 04:34; Start 09/24/18 at 04:30; Stop 09/24/18 at 17:00; Status DC Potassium Chloride 35 meq/ Magnesium Sulfate 2.5 meq/Calcium Chloride 5 meq/ Bicarbonate Dialysis Soln w/ out KCl 5,021.6871 ml @ 1,000 mls/hr Q5H2M IV Last administered on 09/24/18at 04:34; Start 09/24/18 at 04:30; Stop 09/24/18 at 17:00; Status DC Sodium Chloride 90 meq/Potassium Chloride 50 meq/ Potassium Phosphate 13.6 mmol/ Magnesium Sulfate 10 meq/ Calcium Gluconate 10 meq/ Multivitamins 10 ml/Chromium / Copper/Manganese/ Seleni/Zn 1 ml/ Total Parenteral Nutrition/Amino Acids/ Dextrose/ Fat Emulsion Intravenous 87.0013 ml @ 3.625 mls/hr TPN CONT IV ; Start 09/24/18 at 22:00; Stop 09/25/18 at 21:59; Status UNV Info (Tpn Per Pharmacy) 1 each PRN DAILY PRN MC SEE COMMENTS Last administered on 10/07/18at 12:13; Start 09/24/18 at 08:15 Sodium Acetate 45 meq/Potassium Acetate 25 meq/ Potassium Phosphate 13.6 mmol/ Magnesium Sulfate 10 meq/ Calcium Gluconate 10 meq/ Multivitamins 10 ml/Chromium / Copper/Manganese/ Seleni/Zn 1 ml/ Total Parenteral Nutrition/Amino Acids/ Dextrose/ Fat Emulsion Intravenous 1,422 ml @ 59.25 mls/ hr TPN CONT IV Last administered on 09/24/18at 22:50; Start 09/24/18 at 22:00; Stop 09/25/18 at 21:59 ; Status DC Potassium Chloride/Water 50 ml @ 50 mls/hr Q1H IV Last administered on at 10:39; Start 09/25/18 at 09:00; Stop 09/25/18 at 10:59; Status DC Insulin Human Lispro (HumaLOG) 0-5 UNITS Q6HRS SQ Last administered on at 17:56; Start 09/25/18 at 12:00 Dextrose (Dextrose 50%-Water Syringe) 12.5 gm PRN Q15MIN PRN IV SEE COMMENTS; Start 09/25/18 at 09:30 Famotidine (Pepcid Vial) 20 mg QHS IVP Last administered on 09/30/18at 20:55; Start 09/25/18 at 21:00; Stop 10/01/18 at 11:50; Status DC Linezolid/Dextrose 300 ml @ 300 mls/hr Q12HR IV Last administered on 09/28/18at 08:52; Start 09/25/18 at 13:00; Stop 09/28/18 at 17:06; Status DC Pantoprazole Sodium (PROTONIX VIAL for IV PUSH) 40 mg DAILYAC IVP ; Start at 13:00; Stop 09/25/18 at 13:00; Status DC Sodium Chloride 45 meq/Potassium Acetate 35 meq/ Potassium Phosphate 17 mmol/ Magnesium Sulfate 5 meq/Calcium Gluconate 10 meq/ Multivitamins 10 ml/Chromium/ Copper/Manganese/ Seleni/Zn 1 ml/ Total Parenteral Nutrition/Amino Acids/ Dextrose/ Fat Emulsion Intravenous 1,512 ml @ 63 mls/hr TPN CONT IV Last administered on 09/25/18at 22:10; Start 09/25/18 at 22:00; Stop 09/26/18 at 13:53 ; Status DC Sodium Phosphate 10 mmol/Dextrose 253.3333 ml @ 63.333 m... 1X ONCE IV Last administered on 09/25/18at 16:16; Start 09/25/18 at 16:00; Stop 09/25/18 at 19:59 ; Status DC Amitriptyline HCl (Elavil) 25 mg QHS PO ; Start 09/26/18 at 21:00; Status UNV Non-Formulary Medication (Desvenlafaxine Succinate (Pristiq Er)) 1 tab DAILY PO ; Start 09/27/18 at 09:00; Status UNV Haloperidol (Haldol) 10 mg HS PO Last administered on 09/26/18at 21:20; Start at 21:00; Stop 09/27/18 at 21:07; Status DC Sodium Chloride 45 meq/Potassium Acetate 35 meq/ Potassium Phosphate 17 mmol/ Magnesium Sulfate 5 meq/Calcium Gluconate 10 meq/ Multivitamins 10 ml/Chromium/ Copper/Manganese/ Seleni/Zn 1 ml/ Total Parenteral Nutrition/Amino Acids/ Dextrose/ Fat Emulsion Intravenous 1,512 ml @ 63 mls/hr TPN CONT IV ; Start at 22:00; Stop 09/27/18 at 21:59; Status Cancel Sodium Chloride 45 meq/Potassium Acetate 35 meq/ Potassium Phosphate 17 mmol/ Magnesium Sulfate 5 meq/Calcium Gluconate 10 meq/ Multivitamins 10 ml/Chromium/ Copper/Manganese/ Seleni/Zn 1 ml/ Total Parenteral Nutrition/Amino Acids/ Dextrose/ Fat Emulsion Intravenous 1,512 ml @ 63 mls/hr TPN CONT IV Last administered on 09/26/18at 21:31; Start 09/26/18 at 22:00; Stop 09/27/18 at 21:59 ; Status DC Lorazepam (Ativan) 0.5 mg PRN Q6HRS PRN PO ANXIETY / AGITATION Last administered on 09/30/18at 20:54; Start 09/27/18 at 08:15; Stop 10/03/18 at 12:14; Status DC Sodium Chloride 45 meq/Potassium Acetate 35 meq/ Potassium Phosphate 17 mmol/ Magnesium Sulfate 5 meq/Calcium Gluconate 10 meq/ Multivitamins 10 ml/Chromium/ Copper/Manganese/ Seleni/Zn 1 ml/ Total Parenteral Nutrition/Amino Acids/ Dextrose/ Fat Emulsion Intravenous 1,512 ml @ 63 mls/hr TPN CONT IV Last administered on 09/27/18at 21:34; Start 09/27/18 at 22:00; Stop 09/28/18 at 21:59 ; Status DC Haloperidol Lactate (Haldol Inj) 10 mg HS IVP Last administered on 09/27/18at 21 :33; Start 09/27/18 at 22:00; Stop 09/28/18 at 07:58; Status DC Lorazepam (Ativan) 0.5 mg PRN Q6HRS PRN IV ANXIETY / AGITATION Last administered on 10/07/18at 15:49; Start 09/27/18 at 21:15 Haloperidol (Haldol) 10 mg PRN QHS PRN PO AGITATION IF TAKING PO; Start at 21:15; Stop 09/28/18 at 08:02; Status DC Haloperidol (Haldol) 5 mg QHS PO Last administered on 10/02/18at 22:20; Start 09/28/18 at 21:00; Stop 10/03/18 at 12:14; Status DC Sodium Chloride 45 meq/Potassium Acetate 35 meq/ Potassium Phosphate 17 mmol/ Magnesium Sulfate 5 meq/Calcium Gluconate 10 meq/ Multivitamins 10 ml/Chromium/ Copper/Manganese/ Seleni/Zn 1 ml/ Total Parenteral Nutrition/Amino Acids/ Dextrose/ Fat Emulsion Intravenous 1,512 ml @ 63 mls/hr TPN CONT IV Last administered on 09/28/18at 23:00; Start 09/28/18 at 22:00; Stop 09/29/18 at 21:59; Status DC Ondansetron HCl (Zofran) 4 mg PRN Q6HRS PRN IV NAUSEA/VOMITING; Start 09/29/18 at 11:30 Sodium Chloride 40 meq/Potassium Acetate 35 meq/ Potassium Phosphate 17 mmol/ Magnesium Sulfate 5 meq/Calcium Gluconate 10 meq/ Multivitamins 10 ml/Chromium/ Copper/Manganese/ Seleni/Zn 1 ml/ Total Parenteral Nutrition/Amino Acids/ Dextrose/ Fat Emulsion Intravenous 1,512 ml @ 63 mls/hr TPN CONT IV Last administered on 09/29/18at 21:18; Start 09/29/18 at 22:00; Stop 09/30/18 at 21:59; Status DC Haloperidol Lactate (Haldol Inj) 5 mg 1X ONCE IM Last administered on at 15:15; Start 09/29/18 at 15:15; Stop 09/29/18 at 15:16; Status DC Sodium Chloride 30 meq/Sodium Acetate 10 meq/ Potassium Acetate 35 meq/ Potassium Phosphate 17 mmol/ Magnesium Sulfate 5 meq/Calcium Gluconate 10 meq/ Multivitamins 10 ml/Chromium/ Copper/Manganese/ Seleni/Zn 1 ml/ Total Parenteral Nutrition/Amino Acids/Dextrose/ Fat Emulsion Intravenous 1,512 ml @ 63 mls/hr TPN CONT IV Last administered on 09/30/18at 20:56; Start 09/30/18 at 22 :00; Stop 10/01/18 at 21:59; Status DC Acetaminophen (Tylenol) 650 mg PRN Q6HRS PRN PO FEVER Last administered on 15:22; Start 09/30/18 at 14:00 Meropenem 500 mg/ Sodium Chloride 50 ml @ 100 mls/hr Q8HRS IV Last administered on 10/03/18 06:00; Start 10/01/18 at 14:00; Stop 10/03/18 at 12:38; Status DC Vancomycin HCl (Vanco Per Pharmacy) 1 each PRN DAILY PRN MC SEE COMMENTS Last administered on 10/02/18 15:33; Start 10/01/18 at 11:30; Stop 10/03/18 at 12:42; Status DC Micafungin Sodium 100 mg/Dextrose 100 ml @ 100 mls/hr Q24H IV Last administered on 10/04/18 11:09; Start 10/01/18 at 12:00; Stop 10/04/18 at 18:51; Status DC Vancomycin HCl 1.75 gm/Sodium Chloride 500 ml @ 250 mls/hr 1X ONCE IV Last administered on 10/01/18 15:01; Start 10/01/18 at 12:00; Stop 10/01/18 at 13:59; Status DC Famotidine (Pepcid) 20 mg QHS PO Last administered on 10/07/18 21:10; Start at 21:00 Sodium Chloride 30 meq/Sodium Acetate 10 meq/ Potassium Acetate 35 meq/ Potassium Phosphate 17 mmol/ Magnesium Sulfate 10 meq/Calcium Gluconate 10 meq/ Multivitamins 10 ml/Chromium/ Copper/Manganese/ Seleni/Zn 1 ml/ Total Parenteral Nutrition/Amino Acids/Dextrose/ Fat Emulsion Intravenous 1,512 ml @ 63 mls/hr TPN CONT IV Last administered on 10/01/18 22:10; Start 10/01/18 at 22 :00; Stop 10/02/18 at 21:59; Status DC Lactobacillus Rhamnosus (Culturelle) 1 cap BID PO Last administered on 21:10; Start 10/01/18 at 21:00 Vancomycin HCl 1 gm/Sodium Chloride 250 ml @ 250 mls/hr Q24H IV Last administered on 10/02/18at 15:46; Start 10/02/18 at 15:00; Stop 10/03/18 at 12:38; Status DC Vancomycin HCl (Vancomycin Trough Level) 1 each 1X ONCE MC ; Start 10/03/18 at 14:30; Stop 10/03/18 at 14:30; Status DC Sodium Chloride 30 meq/Sodium Acetate 10 meq/ Potassium Acetate 35 meq/ Potassium Phosphate 17 mmol/ Magnesium Sulfate 10 meq/Calcium Gluconate 10 meq/ Multivitamins 10 ml/Chromium/ Copper/Manganese/ Seleni/Zn 1 ml/ Total Parenteral Nutrition/Amino Acids/Dextrose/ Fat Emulsion Intravenous 1,512 ml @ 63 mls/hr TPN CONT IV Last administered on 10/02/18at 22:21; Start 10/02/18 at 22 :00; Stop 10/03/18 at 21:59; Status DC Magnesium Sulfate/ Dextrose 100 ml @ 100 mls/hr 1X ONCE IV Last administered on 10/02/18at 17:18; Start 10/02/18 at 15:30; Stop 10/02/18 at 16:29; Status DC Haloperidol (Haldol) 10 mg QHS PO Last administered on 10/04/18at 22:00; Start at 21:00; Stop 10/05/18 at 07:49; Status DC Lorazepam (Ativan) 0.5 mg TID PO Last administered on 10/04/18at 21:59; Start 10/03/18 at 14:00; Stop 10/05/18 at 07:49; Status DC Meropenem 1 gm/ Sodium Chloride 100 ml @ 200 mls/hr Q8HRS IV Last administered on 10/08/18at 05:46; Start 10/03/18 at 14:00 Sodium Chloride 30 meq/Sodium Acetate 10 meq/ Potassium Acetate 10 meq/Sodium Phosphate 13.6 mmol/Magnesium Sulfate 10 meq/ Calcium Gluconate 10 meq/ Multivitamins 10 ml/Chromium/ Copper/Manganese/ Seleni/Zn 1 ml/ Total Parenteral Nutrition/Amino Acids/Dextrose/ Fat Emulsion Intravenous 1,512 ml @ 63 mls/hr TPN CONT IV Last administered on 10/03/18at 20:47; Start 10/03/18 at 22 :00; Stop 10/04/18 at 21:59; Status DC Sodium Chloride 30 meq/Sodium Acetate 10 meq/ Potassium Acetate 10 meq/Sodium Phosphate 13.6 mmol/Magnesium Sulfate 10 meq/ Calcium Gluconate 10 meq/ Multivitamins 10 ml/Chromium/ Copper/Manganese/ Seleni/Zn 1 ml/ Total Parenteral Nutrition/Amino Acids/Dextrose/ Fat Emulsion Intravenous 1,512 ml @ 63 mls/hr TPN CONT IV Last administered on 10/04/18at 22:00; Start 10/04/18 at 22 :00; Stop 10/05/18 at 21:59; Status DC Haloperidol (Haldol) 10 mg BID PO Last administered on 10/06/18at 20:19; Start at 09:00; Stop 10/07/18 at 11:32; Status DC Lorazepam (Ativan) 1 mg TID PO Last administered on 10/07/18at 21:10; Start 10/05 at 09:00 Sodium Chloride 30 meq/Sodium Acetate 10 meq/ Potassium Acetate 10 meq/Sodium Phosphate 13.6 mmol/Magnesium Sulfate 10 meq/ Calcium Gluconate 10 meq/ Multivitamins 10 ml/Chromium/ Copper/Manganese/ Seleni/Zn 1 ml/ Total Parenteral Nutrition/Amino Acids/Dextrose/ Fat Emulsion Intravenous 1,512 ml @ 63 mls/hr TPN CONT IV Last administered on 10/05/18at 21:27; Start 10/05/18 at 22 :00; Stop 10/06/18 at 21:59; Status DC Sodium Chloride 20 meq/Sodium Acetate 20 meq/ Potassium Acetate 10 meq/Sodium Phosphate 13.6 mmol/Magnesium Sulfate 10 meq/ Calcium Gluconate 10 meq/ Multivitamins 10 ml/Chromium/ Copper/Manganese/ Seleni/Zn 1 ml/ Total Parenteral Nutrition/Amino Acids/Dextrose/ Fat Emulsion Intravenous 1,512 ml @ 63 mls/hr TPN CONT IV Last administered on 10/06/18at 22:11; Start 10/06/18 at 22 :00; Stop 10/07/18 at 21:59; Status DC Haloperidol (Haldol) 10 mg TID PO Last administered on 10/07/18at 21:10; Start 10/07/18 at 14:00 Sodium Chloride 20 meq/Sodium Acetate 20 meq/ Sodium Phosphate 13.6 mmol/ Potassium Acetate 10 meq/Magnesium Sulfate 10 meq/ Calcium Gluconate 10 meq/ Multivitamins 10 ml/Chromium/ Copper/Manganese/ Seleni/Zn 1 ml/ Total Parenteral Nutrition/Amino Acids/Dextrose/ Fat Emulsion Intravenous 1,512 ml @ 63 mls/hr TPN CONT IV Last administered on 10/07/18at 21:17; Start 10/07/18 at 22:00; Stop 10/08/18 at 21:59 Haloperidol (Haldol) 10 mg 1X ONCE PO Last administered on 10/07/18at 16:41; Start 10/07/18 at 16:30; Stop 10/07/18 at 16:31; Status DC Active Scripts Active Reported [iron] 325 Mg PO Haloperidol 10 Mg Tablet 10 Mg PO QHS Ventolin Hfa Inhaler (Albuterol Sulfate) 18 Gm Hfa.aer.ad 2 Puff INH Q4HRS PRN Pristiq Er (Desvenlafaxine Succinate) 50 Mg Tab.er.24h 1 Tab PO DAILY Amitriptyline Hcl 25 Mg Tablet 1 Tab PO QHS Diazepam 5 Mg Tablet 5 Mg PO TID Gabapentin (Gabapentin) 300 Mg Capsule 300 Mg PO TID Vitals/I & O Vital Sign - Last 24 Hours 10/07/18 10/07/18 10/07/18 10/07/18 11:00 15:25 19:00 20:00 Temp 97.5 98.0 98.9 97.5 98.0 98.9 Pulse 114 110 101 Resp 18 20 B/P (MAP) 145/63 (90) 147/70 (95) 128/56 (80) Pulse Ox 99 95 O2 Delivery Room Air Room Air Room Air Room Air 10/07/18 10/08/18 10/08/18 23:00 03:00 07:00 Temp 98.5 99.0 97.8 98.5 99.0 97.8 Pulse 107 88 103 Resp 20 20 20 B/P (MAP) 119/55 (76) 111/58 (75) 134/69 (90) Pulse Ox 99 98 97 O2 Delivery Room Air Room Air Room Air Intake and Output 10/07/18 10/07/18 10/08/18 14:59 22:59 06:59 Intake Total 255 ml 340 ml 100 ml Balance 255 ml 340 ml 100 ml MILY COOK MD Oct 08, 2018 10:01
[2018-10-08] MEDS: LORazepam 1 MG TABLET PO SCH ×3 (10:05→21:16)
[2018-10-08] MEDS: HALOPERIDOL 5 MG TABLET. PO SCH ×3 (10:05→21:15)
[2018-10-08 11:00] VITALS: BP 132/79
--- NOTE | 2018-10-08 11:01 | PDOC ---
Objective: Objective: Walked w/ therapy - tried to bite, 1:1 says not interested in eating. Vital Signs: Vital Signs Date Time Temp Pulse Resp B/P (MAP) Pulse Ox O2 Delivery O2 Flow Rate FiO2 10/08/18 08:00 Room Air 10/08/18 07:00 97.8 103 20 134/69 (90) 97 97.8 Labs: Laboratory Tests Test 10/07/18 12:06 10/07/18 19:57 10/07/18 23:47 10/08/18 03:58 Glucose (Fingerstick) 133 mg/dL 80 mg/dL 121 mg/dL Sodium Level 143 mmol/L Potassium Level 3.9 mmol/L Chloride Level 108 mmol/L Carbon Dioxide Level 22 mmol/L Anion Gap 13 Blood Urea Nitrogen 17 mg/dL Creatinine 0.6 mg/dL Estimated GFR (Cockcroft-Gault) 100.6 Glucose Level 98 mg/dL Calcium Level 8.9 mg/dL Phosphorus Level 3.7 mg/dL Magnesium Level 2.0 mg/dL Test 10/08/18 05:40 Glucose (Fingerstick) 118 mg/dL BLOOD CULTURE Final NO GROWTH AFTER 5 DAYS PE: GEN: up to chair, mumbling LUNGS: room air NEURO/PSYCH: confused A/P: Bacteremia, encephalopathy, h/o schizophrenia Anemia - stable Anorexia - recent EGD, s/p gastric bypass -- Still awaiting discharge, stable from GI standpoint. ZHOU BLANC Oct 08, 2018 11:01
--- NOTE | 2018-10-08 12:29 | PDOC ---
Infectious Disease Note Subjective Subjective Sleeping but awakened but nonverbal No Vomiting or diarrhea reported TPN ROS ROS o/w neg Vital Sign Vital Signs Vital Signs Date Time Temp Pulse Resp B/P (MAP) Pulse Ox O2 Delivery O2 Flow Rate FiO2 10/08/18 11:00 97.8 107 20 132/79 (96) 97 Room Air 97.8 Physical Exam PHYSICAL EXAM GENERAL: NAD HEENT: Poor dentition. No thrush. NECK: Supple LUNGS: Decreased breath sounds at the bases, otherwise clear. HEART: S1, S2. No murmurs. ABDOMEN: Soft, bowel sounds present, nontender : No Mckinney EXTREMITIES: No edema, no cyanosis. NEUROLOGIC: Arouses to voice, confused DERM: Warm, dry. No generalized skin rash. LUE-PICC clean Labs Lab Laboratory Tests Test 10/07/18 19:57 10/07/18 23:47 10/08/18 03:58 10/08/18 05:40 Glucose (Fingerstick) 80 mg/dL (70-99) 121 mg/dL (70-99) 118 mg/dL (70-99) Sodium Level 143 mmol/L (136-145) Potassium Level 3.9 mmol/L (3.5-5.1) Chloride Level 108 mmol/L (98-107) Carbon Dioxide Level 22 mmol/L (21-32) Anion Gap 13 (6-14) Blood Urea Nitrogen 17 mg/dL (7-20) Creatinine 0.6 mg/dL (0.6-1.0) Estimated GFR (Cockcroft-Gault) 100.6 Glucose Level 98 mg/dL (70-99) Calcium Level 8.9 mg/dL (8.5-10.1) Phosphorus Level 3.7 mg/dL (2.6-4.7) Magnesium Level 2.0 mg/dL (1.8-2.4) Micro 09/22 blood BLD CULT RESULT 1 Final Comment Brevundimonas diminuta ANTIMICROBIAL SUSCEPTIBILITY Final Comment S = Susceptible; I = Intermediate; R = Resistant P = Positive; N = Negative MICS are expressed in micrograms per mL Antibiotic RSLT#1 RSLT#2 RSLT#3 RSLT#4 Amikacin S<=4 Cefepime S<=2 Cefotaxime S<=2 Ceftazidime S<=2 Ceftriaxone S<=1 Ciprofloxacin S<=1 Gentamicin S<=1 Imipenem S<=1 Levofloxacin S<=1 Meropenem S<=1 Piperacillin/Tazobactam S<=8 Tetracycline S<=4 Tobramycin S<=1 Trimethoprim/Sulfa S<=2/38 Microbiology 10/01/18 Blood Culture - Final, Complete NO GROWTH AFTER 5 DAYS 09/25/18 - Final, Complete 09/25/18 - Final, Complete 09/25/18 - Final, Complete 09/25/18 Gram Stain Evaluation - Final, Complete 09/25/18 Sputum Culture - Final, Complete 09/25/18 Sputum Result 1 - Final, Complete 09/25/18 Sputum Result 2 - Final, Complete 10/01/18 Urine Culture - Final, Complete 10/01/18 Urine Culture Result 1 (MELODY) - Final, Complete Objective Assessment Febrile illness - pattern improved Septic shock POA Brevundimonas diminuta bacteremia (PSAE) POA 09/22, source likely GI, UA neg. repeat BC 10/01 neg - CT abdo and pelvis in aug 2018 done, no abscess MARII and Metabolic acidosis resolved GI Bleed Anemia Thrombocytopenia Leucocytosis - improved Bipolar disorder/schizophrenia Positive MRSA nares Plan Plan of Care Discont Merrem, was on Zosyn prior to that repeat BC from 10/01 neg D/W nursing DONALD CESAR MD Oct 08, 2018 12:29
[2018-10-08] MEDS: TPN PER PHARMACY MC PRN (14:12)
--- NOTE | 2018-10-08 14:12 | NUR ---
Pharmacy TPN Dosing Note S: ISABELL BUCIO is a 63 year old F Currently receiving Central Continuous TPN started 09/24/18 B:Pertinent PMH: recent critical illness, continued poor po intake Height: 5 feet, 0 inches Weight: 66.3 kg Current diet: DYSPHAGIA LABS: Sodium: 143 Potassium: 3.9 Chloride: 108 Calcium: 8.9 Corrected Calcium: 10.10 Magnesium: 2 CO2: 22 SCr: 0.6 Glucose: 98, 118 Albumin: 2.5 AST: 80 (09/23) ALT: 39 (09/23) TPN FORMULA: TPN TYPE: Central Continuous AMINO ACIDS: 60 gm DEXTROSE: 225 gm LIPIDS: 20 gm SODIUM ACETATE: 40 mEq SODIUM PHOSPHATE: 13.6 mmol POTASSIUM ACETATE: 10 mEq MAGNESIUM: 10 mEq CALCIUM: 10 mEq MULTIPLE VITAMIN: 10 ml TRACE ELEMENTS: MTE5 ml TPN PLAN: -Convert NaCl to NaAC. -All other electrolytes appear WNL and stable. -No labs tomorrow due to TPN stability. R: Continue TPN @ current rate and above formula. Will monitor electrolytes, glucose, and tolerance to TPN. LISBET POLO [facility], 10/08/18 0000
--- NOTE | 2018-10-08 14:50 | PDOC ---
PULMONARY PROGRESS NOTES Subjective sleeping, no soa Vitals Vital Signs Date Time Temp Pulse Resp B/P (MAP) Pulse Ox O2 Delivery O2 Flow Rate FiO2 10/08/18 11:00 97.8 107 20 132/79 (96) 97 Room Air 97.8 HEENT: Other (nc at perrl ) Lungs: Clear Cardiovascular: S1, S2 Abdomen: Soft, Non-tender Extremities: Other (1+edema) Skin: Warm Labs Laboratory Tests Test 10/06/18 17:48 10/06/18 23:07 10/07/18 06:15 10/07/18 12:06 Glucose (Fingerstick) 129 mg/dL (70-99) 108 mg/dL (70-99) 133 mg/dL (70-99) White Blood Count 8.6 x10^3/uL (4.0-11.0) Red Blood Count 3.01 x10^6/uL (3.50-5.40) Hemoglobin 9.2 g/dL (12.0-15.5) Hematocrit 27.6 % (36.0-47.0) Mean Corpuscular Volume 92 fL (79-100) Mean Corpuscular Hemoglobin 30 pg (25-35) Mean Corpuscular Hemoglobin Concent 33 g/dL (31-37) Red Cell Distribution Width 16.9 % (11.5-14.5) Platelet Count 362 x10^3/uL (140-400) Neutrophils (%) (Auto) 59 % (31-73) Lymphocytes (%) (Auto) 21 % (24-48) Monocytes (%) (Auto) 14 % (0-9) Eosinophils (%) (Auto) 4 % (0-3) Basophils (%) (Auto) 2 % (0-3) Neutrophils # (Auto) 5.1 x10^3uL (1.8-7.7) Lymphocytes # (Auto) 1.8 x10^3/uL (1.0-4.8) Monocytes # (Auto) 1.2 x10^3/uL (0.0-1.1) Eosinophils # (Auto) 0.4 x10^3/uL (0.0-0.7) Basophils # (Auto) 0.2 x10^3/uL (0.0-0.2) Test 10/07/18 19:57 10/07/18 23:47 10/08/18 03:58 10/08/18 05:40 Glucose (Fingerstick) 80 mg/dL (70-99) 121 mg/dL (70-99) 118 mg/dL (70-99) Sodium Level 143 mmol/L (136-145) Potassium Level 3.9 mmol/L (3.5-5.1) Chloride Level 108 mmol/L (98-107) Carbon Dioxide Level 22 mmol/L (21-32) Anion Gap 13 (6-14) Blood Urea Nitrogen 17 mg/dL (7-20) Creatinine 0.6 mg/dL (0.6-1.0) Estimated GFR (Cockcroft-Gault) 100.6 Glucose Level 98 mg/dL (70-99) Calcium Level 8.9 mg/dL (8.5-10.1) Phosphorus Level 3.7 mg/dL (2.6-4.7) Magnesium Level 2.0 mg/dL (1.8-2.4) Albumin 2.5 g/dL (3.4-5.0) Laboratory Tests Test 10/07/18 19:57 10/07/18 23:47 10/08/18 03:58 10/08/18 05:40 Glucose (Fingerstick) 80 mg/dL (70-99) 121 mg/dL (70-99) 118 mg/dL (70-99) Sodium Level 143 mmol/L (136-145) Potassium Level 3.9 mmol/L (3.5-5.1) Chloride Level 108 mmol/L (98-107) Carbon Dioxide Level 22 mmol/L (21-32) Anion Gap 13 (6-14) Blood Urea Nitrogen 17 mg/dL (7-20) Creatinine 0.6 mg/dL (0.6-1.0) Estimated GFR (Cockcroft-Gault) 100.6 Glucose Level 98 mg/dL (70-99) Calcium Level 8.9 mg/dL (8.5-10.1) Phosphorus Level 3.7 mg/dL (2.6-4.7) Magnesium Level 2.0 mg/dL (1.8-2.4) Albumin 2.5 g/dL (3.4-5.0) Medications Active Scripts Medications Dose Route/Sig Max Daily Dose Days Date Category [iron] 325 Mg PO 09/23/18 Reported Haloperidol 10 Mg Tablet 10 Mg PO QHS 09/23/18 Reported Ventolin Hfa Inhaler (Albuterol Sulfate) 18 Gm Hfa.aer.ad 2 Puff INH Q4HRS PRN 07/04/18 Reported Pristiq Er (Desvenlafaxine Succinate) 50 Mg Tab.er.24h 1 Tab PO DAILY 07/01/18 Reported Amitriptyline Hcl 25 Mg Tablet 1 Tab PO QHS 07/01/18 Reported Diazepam 5 Mg Tablet 5 Mg PO TID 07/01/18 Reported Gabapentin (Gabapentin) 300 Mg Capsule 300 Mg PO TID 07/01/18 Reported Impression . 1. Acute respiratory failure, multifactorial in etiology including shock, acute kidney injury 2. SEPTIC SHOCK 3. Abnormal CT of the chest with left lower lobe dense atelectasis/ PNEUMONIA 4. Acute kidney injury. 5. Electrolyte abnormality. 6. Gastrointestinal bleeding. 7. Hypotension. resolved 8. Severe metabolic acidosis secondary to shock and acute kidney injury 9. FEVER, resolved BLOOD CULTURE LC Final Final report BLD CULT RESULT 1 Final Comment Brevundimonas diminuta ANTIMICROBIAL SUSCEPTIBILITY Final Comment S = Susceptible; I = Intermediate; R = Resistant P = Positive; N = Negative MICS are expressed in micrograms per mL Antibiotic RSLT#1 RSLT#2 RSLT#3 RSLT#4 Amikacin S<=4 Cefepime S<=2 Cefotaxime S<=2 Ceftazidime S<=2 Ceftriaxone S<=1 Ciprofloxacin S<=1 Gentamicin S<=1 Imipenem S<=1 Levofloxacin S<=1 Meropenem S<=1 Piperacillin/Tazobactam S<=8 Tetracycline S<=4 Tobramycin S<=1 Trimethoprim/Sulfa S<=2/38 Performed at: [facility] - [facility] [address] [facility] [address], [place], [place] [id number] Art Supervisor: SIMON Mehta MD, Phone: [phone] Plan . AWAITING PLACEMENT continue antibiotics PER ID elevate hob avoid oversedation discussed w HOANG Gupta MD Oct 08, 2018 14:50
[2018-10-08 15:00] VITALS: BP 132/70
--- NOTE | 2018-10-08 16:12 | NUR ---
SW following pt. Spoke with Sol at [facility] and pt is denied acceptance due to behaviors. LILA faxed updated clinicals to [facility]. RN notified. Will continue to follow.
--- NOTE | 2018-10-08 18:40 | DS ---
DATE OF DISCHARGE: 10/08/2018 CHIEF COMPLAINT: Altered mental status. HISTORY OF PRESENT ILLNESS: The patient is a 63-year-old female who was brought to the Emergency Room via ambulance with the above complaint. The family reported that they found the patient unresponsive at home. She had experienced a large black tarry stool and then become unresponsive. When brought to the ER, she was hypotensive and minimally responsive. Labs showed a profound metabolic acidosis with an initial pH of 7.01. Stool was positive for blood. She was electively intubated and admitted for further care. HOSPITAL COURSE: The patient's metabolic acidosis and renal failure were initially treated with CRRT. Her renal function gradually improved, and this therapy was discontinued after several days, and she remained stable. Her respiratory failure was managed with ventilator support and broad spectrum antibiotics. She improved after several days and was able to be weaned from the ventilator with no further hypoxia. The patient was felt to have had a lower GI bleed. On 09/24/2018, Dr. Buckley performed an EGD, which showed some nonerosive gastritis and no acute bleeding. The patient was transfused several units of blood initially. Her hemoglobin has remained stable since then with no further evidence of bleeding. The patient has a long history of schizophrenia and bipolar mood disorder. The family reported that her symptoms had been worsening for some time. She was seen at [facility], and her medications were adjusted, but it was unclear what exactly she was supposed to be taking. As her medical condition has improved here, she has become more agitated and appears acutely psychotic. There is no psychiatric consultation available here. She has been started on Haldol and Ativan, and these doses have been adjusted upwards. Her condition has somewhat improved, but she is still presently requiring 1:1 care for safety. The patient was seen by Speech Therapy after extubation for evaluation of her swallowing. She appeared to handle thin liquids satisfactorily, but Speech Therapy was unable to really test her with solid food as she is not taking much by mouth. They have recommended a dysphagia 1 diet with thin liquids, and this has been presented to her, but she is still eating very little. Therefore, she has been continued on TPN. One blood culture from admission was eventually positive for Brevundimonas diminuta which was hill sensitive. The patient has been followed by Infectious Disease, and her antibiotics adjusted per their recommendations. She is presently on meropenem. Repeat cultures are all negative to date, and the meropenem will be continued per infectious disease recommendations. The patient has significant debility. She has been seen by Physical and Occupational Therapy and is doing better in her ability to cooperate with treatment. She is certainly not able to return home. Arrangements are hopefully being made for her to transfer to a long-term acute care facility as that is the level of care that she presently requires. FINAL DIAGNOSES: 1. Acute respiratory failure with community-acquired pneumonia. 2. Severe metabolic acidosis with acute renal failure. 3. Lower gastrointestinal bleed. 4. Schizophrenia with bipolar mood disorder. 5. Dysphagia. 6. Debility. 7. Metabolic encephalopathy. DISCHARGE MEDICATIONS: Meropenem 1 gram IV q.8 hours., famotidine 20 mg daily, haloperidol 10 mg t.i.d., lactobacillus 1 capsule b.i.d., lorazepam 1 mg t.i.d. p.o. and 0.5 mg IV q.6 hours p.r.n. severe agitation. Albuterol nebulized treatments p.r.n., iron 325 mg daily, gabapentin 300 mg t.i.d. ADDENDUM: Patient was not discharged on 10/08/18 as no placement could be arranged for her on that day. Follow up with Dr. Seay after discharge from long-term acute care. MILY SEAY MD DR: SEGUN/nanette JOB#: [id number] / [id number] JOSE RAUL
[2018-10-08 19:05] VITALS: BP 102/57
[2018-10-08] MEDS: FAMOTIDINE 20 MG TABLET. PO SCH (21:15)
[2018-10-08] MEDS ORDERED: DEXTROSE 70% IV SCH ×10 (22:00)
[2018-10-08] MEDS ORDERED: [UNRECOGNIZED DRUG - OTHER] IV SCH ×10 (22:00)
[2018-10-08] MEDS ORDERED: AMINO ACID IV SCH ×10 (22:00)
[2018-10-08] MEDS ORDERED: TOTAL PARENTERAL NUTRITION IV SCH ×10 (22:00)
--- NOTE | 2018-10-08 23:00 | NUR ---
Spoke with Dr. Hill. Patient pulled PICC line out. Per Dr. Hill, no new orders at this time, she will see patient in a.m.
[2018-10-08 23:45] VITALS: BP 100/55
[2018-10-09 03:02] VITALS: BP 107/54
[2018-10-09] MEDS: INSULIN LISPRO 300 UNITS/3 ML INSULN.PEN. SQ SCH ×4 (04:56→17:37)
--- NOTE | 2018-10-09 06:56 | PDOC ---
Infectious Disease Note Subjective Subjective More alert. Asking for her mother Has a positive ROS States is going to the doctor today Vital Sign Vital Signs Vital Signs Date Time Temp Pulse Resp B/P (MAP) Pulse Ox O2 Delivery O2 Flow Rate FiO2 10/09/18 03:02 99.1 102 20 107/54 (71) 99.1 10/08/18 23:45 Room Air 10/08/18 15:00 96 Physical Exam PHYSICAL EXAM GENERAL: NAD -alert HEENT: Poor dentition. No thrush. NECK: Supple LUNGS: Decreased breath sounds at the bases, otherwise clear. HEART: S1, S2. No murmurs. ABDOMEN: Soft, bowel sounds present, nontender, - obese : No Mckinney EXTREMITIES: No edema, no cyanosis. NEUROLOGIC: Alert but confused DERM: Warm, dry. No generalized skin rash. LUE-old PICC site is clean Labs Lab Laboratory Tests Test 10/08/18 12:11 10/08/18 18:13 10/08/18 23:54 Glucose (Fingerstick) 113 mg/dL (70-99) 107 mg/dL (70-99) 88 mg/dL (70-99) Micro 09/22 blood BLD CULT RESULT 1 Final Comment Brevundimonas diminuta ANTIMICROBIAL SUSCEPTIBILITY Final Comment S = Susceptible; I = Intermediate; R = Resistant P = Positive; N = Negative MICS are expressed in micrograms per mL Antibiotic RSLT#1 RSLT#2 RSLT#3 RSLT#4 Amikacin S<=4 Cefepime S<=2 Cefotaxime S<=2 Ceftazidime S<=2 Ceftriaxone S<=1 Ciprofloxacin S<=1 Gentamicin S<=1 Imipenem S<=1 Levofloxacin S<=1 Meropenem S<=1 Piperacillin/Tazobactam S<=8 Tetracycline S<=4 Tobramycin S<=1 Trimethoprim/Sulfa S<=2/38 Microbiology 10/01/18 Blood Culture - Final, Complete NO GROWTH AFTER 5 DAYS 09/25/18 - Final, Complete 09/25/18 - Final, Complete 09/25/18 - Final, Complete 09/25/18 Gram Stain Evaluation - Final, Complete 09/25/18 Sputum Culture - Final, Complete 09/25/18 Sputum Result 1 - Final, Complete 09/25/18 Sputum Result 2 - Final, Complete 10/01/18 Urine Culture - Final, Complete 10/01/18 Urine Culture Result 1 (MELODY) - Final, Complete Objective Assessment Febrile illness - resolved Septic shock POA Brevundimonas diminuta bacteremia (PSAE) POA 09/22, source likely GI, UA neg. repeat BC 10/01 neg - treaed - CT abdo and pelvis in aug 2018 done, no abscess MARII and Metabolic acidosis resolved GI Bleed Anemia Thrombocytopenia Leucocytosis - improved Bipolar disorder/schizophrenia - more alert today Positive MRSA nares Plan Plan of Care Cont off abx ID to sign off D/W nursing DONALD CESAR MD Oct 09, 2018 06:56
[2018-10-09 07:12] VITALS: BP 95/55
[2018-10-09] MEDS: LACTOBACILLUS RHAMNOSUS GG 1 CAPSULE. PO SCH ×2 (07:45→20:29)
--- NOTE | 2018-10-09 08:16 | NUR ---
LILA following pt. LILA phoned and faxed LTAC referral to [facility]. Pt acceptance and admission pending. Will continue to follow. Addendum: 10/09/18 at 1433 by RAKAN SHARP LILA left a voice mail to Tamara at [facility] requesting a call back. Will continue to follow.
--- NOTE | 2018-10-09 08:35 | PDOC ---
SUBJECTIVE Subjective Pt pulled her PICC last night. Doing "okay". Still requiring 1:1. Has been accepted at [facility], will ensure that they can take her needing 1:1 care OBJECTIVE Vital Signs Vital Signs Date Time Temp Pulse Resp B/P (MAP) Pulse Ox O2 Delivery O2 Flow Rate FiO2 10/09/18 07:12 98.6 102 18 95/55 (68) 98 Room Air 98.6 10/09/18 03:02 99.1 102 20 107/54 (71) 99.1 10/08/18 23:45 99.4 105 20 100/55 (70) Room Air 99.4 10/08/18 20:00 Room Air 10/08/18 19:05 99.0 103 20 102/57 (72) Room Air 99.0 10/08/18 15:00 97.5 100 20 132/70 (90) 96 Room Air 97.5 10/08/18 11:00 97.8 107 20 132/79 (96) 97 Room Air 97.8 I & O Intake and Output 10/09/18 07:00 Intake Total 4595 ml Output Total 325 ml Balance 4270 ml Intake Oral 100 ml Tube Feeding 3500 ml Other 995 ml Output Urine Total 325 ml # Voids 8 # Bowel Movements 1 PHYSICAL EXAM Physical Exam GEN: mild distress when getting agitated, otherwise NAD, alert, oriented to self HEENT: MMM, EOMI, no scleral icterus/injection, poor dentition Cardiac: RRR, no M/R/G Lungs: CTAB, regular breathing rate and effort Abd: soft, non distended, NTTP Ext: no erythema/edema LE bilaterally ASSESSMENT/PLAN Assessment/Plan Pt is a 63yo CF admitted with altered mental status 1. Altered mental status- multifactorial. 2. Bacteremia - stable, afebrile. Repeat blood cultures negative to date. Meropenem stopped yesterday 2. dysphagia - taking little po, continue TPN and Dysphagia diet per speech tx. 3. schizophrenia with metabolic encephalopathy - mild improvement, was able to cooperate with PT yesterday. Continue Haldol and Ativan. Continue 1 to 1 for safety. 4. debility - continue therapies 5. Acute respiratory failure with possible pneumonia - pt extubated with no complications 6. metabolic acidosis with acute renal failure - resolved 7. GI bleed - stable, Hgb decreasing very slowly but no evidence of ongoing bleed at this time. 8. Thrombocytopenia- improving COMMENT Lab Laboratory Tests Test 10/08/18 12:11 10/08/18 18:13 10/08/18 23:54 10/09/18 06:03 Glucose (Fingerstick) 113 mg/dL (70-99) 107 mg/dL (70-99) 88 mg/dL (70-99) 88 mg/dL (70-99) TRUONG THOMAS MD Oct 09, 2018 08:34
[2018-10-09] MEDS: HALOPERIDOL 5 MG TABLET. PO SCH ×3 (10:25→20:29)
[2018-10-09] MEDS: LORazepam 1 MG TABLET PO SCH ×3 (10:25→20:29)
[2018-10-09 10:34] VITALS: BP 145/71
--- NOTE | 2018-10-09 13:12 | PDOC ---
Objective: Vital Signs: Vital Signs Date Time Temp Pulse Resp B/P (MAP) Pulse Ox O2 Delivery O2 Flow Rate FiO2 10/09/18 10:34 98.5 107 16 145/71 (95) 98 Room Air 98.5 Labs: Laboratory Tests Test 10/08/18 18:13 10/08/18 23:54 10/09/18 06:03 Glucose (Fingerstick) 107 mg/dL 88 mg/dL 88 mg/dL FUNGAL CULTURE,BLOOD Preliminary Preliminary report PAT CULT RES 1 Preliminary Comment No fungi isolated in 48 hours. PE: GEN: NAD, walking w/ walker in hallway w/ staff NEURO/PSYCH: confused A/P: Bacteremia, h/o schizophrenia Anemia - stable -- Awaiting DC, encourage PO. ZHOU BLANC Oct 09, 2018 13:12
[2018-10-09 14:53] VITALS: BP 108/49
--- NOTE | 2018-10-09 15:10 | NUR ---
LILA following pt. Spoke with Jennifer at [facility] who reported they are currently full and are reviewing clinicals. LILA faxed updated notes from today. Pt has pulled out PICC line yesterday and is not on TPN today. RN reported pt is doing well with PO intake. Pt still requiring close monitoring. Will continue to follow.
[2018-10-09 19:00] VITALS: BP 103/55
[2018-10-09] MEDS: FAMOTIDINE 20 MG TABLET. PO SCH (20:29)
[2018-10-09 23:00] VITALS: BP 106/61
[2018-10-10 03:00] VITALS: BP 101/60
[2018-10-10] MEDS: INSULIN LISPRO 300 UNITS/3 ML INSULN.PEN. SQ SCH ×3 (05:02→12:00)
[2018-10-10 07:00] VITALS: BP 124/70
--- NOTE | 2018-10-10 09:03 | PDOC ---
SUBJECTIVE Subjective Pt has not eaten breakfast yet this morning. States that she has no appetite but denies any pain. Per nursing staff she ate well yesterday and does well with drinking boosts. Will attempt to have family come today to evaluate patient and see if they feel she is at a point where she can come back home. SW still also working on SNF placement. OBJECTIVE Vital Signs Vital Signs Date Time Temp Pulse Resp B/P (MAP) Pulse Ox O2 Delivery O2 Flow Rate FiO2 10/10/18 07:00 99.2 101 20 124/70 (88) 97 Room Air 99.2 10/10/18 03:00 98.7 105 14 101/60 (74) 96 Room Air 98.7 10/09/18 23:00 98.7 104 14 106/61 (76) 96 Room Air 98.7 10/09/18 20:00 Room Air 10/09/18 19:00 97.6 102 14 103/55 (71) 95 Room Air 97.6 10/09/18 14:53 98.2 101 19 108/49 (68) 96 Room Air 98.2 10/09/18 10:34 98.5 107 16 145/71 (95) 98 Room Air 98.5 I & O Intake and Output 10/10/18 07:00 Intake Total 1531 ml Balance 1531 ml Intake Oral 1531 ml # Voids 2 # Bowel Movements 6 PHYSICAL EXAM Physical Exam GEN: mild distress when getting agitated, otherwise NAD, alert, oriented to self HEENT: MMM, EOMI, no scleral icterus/injection, poor dentition Cardiac: RRR, no M/R/G Lungs: CTAB, regular breathing rate and effort Abd: soft, non distended, NTTP Ext: no erythema/edema LE bilaterally ASSESSMENT/PLAN Assessment/Plan Pt is a 63yo CF admitted with altered mental status 1. Altered mental status- multifactorial. Will have family come today to see if pt is at her baseline 2. Bacteremia - stable, afebrile. Repeat blood cultures negative to date. Meropenem stopped 10/08 2. dysphagia - working on increasing pt's diet 3. schizophrenia with metabolic encephalopathy - mild improvement, was able to cooperate with PT yesterday. Continue Haldol and Ativan. Continue 1 to 1 for safety. 4. debility - continue therapies 5. Acute respiratory failure with possible pneumonia - pt extubated with no complications 6. metabolic acidosis with acute renal failure - resolved 7. GI bleed - stable, Hgb decreasing very slowly but no evidence of ongoing bleed at this time. 8. Thrombocytopenia- improving COMMENT Lab Laboratory Tests Test 10/09/18 12:24 10/09/18 17:22 Glucose (Fingerstick) 211 mg/dL (70-99) 96 mg/dL (70-99) TRUONG THOMAS MD Oct 10, 2018 09:03
--- NOTE | 2018-10-10 09:05 | PDOC ---
Objective: Objective: Per 1:1 sitter - refuses to eat, still confused and cursing. Vital Signs: Vital Signs Date Time Temp Pulse Resp B/P (MAP) Pulse Ox O2 Delivery O2 Flow Rate FiO2 10/10/18 07:00 99.2 101 20 124/70 (88) 97 Room Air 99.2 Labs: Laboratory Tests Test 10/09/18 12:24 10/09/18 17:22 Glucose (Fingerstick) 211 mg/dL 96 mg/dL PE: GEN: NAD NEURO/PSYCH: confused A/P: AMS, bacteremia, anemia -- Refuses PO but pulled out PICC so TPN stopped. ZHOU BLANC Oct 10, 2018 09:05
--- NOTE | 2018-10-10 09:22 | NUR ---
SW following pt. Pt is no longer on TPN and IV abx. Due to this, pt no longer qualifies for LTAC placement. Discussed with RN about SNF, geripsych and also the possibility of pt going home with family. Pt will need to sign her self in or will need a DPOA for [facility] placement. LILA attempted to reach pt's son, Shiva, phone: [phone] and daughter in law, Jessi, phone: [phone] to discuss discharge disposition but phones are not working. LILA faxed SNF referral to [facility], [facility], [facility] and [facility]. Pt admission and acceptance pending. LILA will continue to follow.
[2018-10-10] MEDS: HALOPERIDOL 5 MG TABLET. PO SCH ×2 (09:36→14:28)
[2018-10-10] MEDS: LORazepam 1 MG TABLET PO SCH ×2 (09:36→14:28)
[2018-10-10] MEDS: LACTOBACILLUS RHAMNOSUS GG 1 CAPSULE. PO SCH (09:36)
[2018-10-10 10:01] VITALS: BP 107/62
--- NOTE | 2018-10-10 12:56 | NUR ---
LILA following pt. [facility] and [facility] declined to take pt. [facility] still reviewing clinicals. LILA faxed referral to [facility], [facility], [facility] and [facility]. Pt admission and acceptance pending. LILA phoned pt's son, Shiva, phone: [phone] and left a voice mail requesting a call back. Will continue to follow.
--- NOTE | 2018-10-10 13:29 | NUR ---
LILA following pt. SW was finally able to speak with pt's son Shiva, phone: [phone] via phone and discussed plan. LILA notified Shiva pt is no longer a candidate for LTAC placement. SW discussed SW is unable to find SNF that can take her so far due to behaviors. SW discussed if he is able to take pt home today and he reported he will be able to pick her up in an hour. RN notified. Dr. Hill notified by RN and is agreeable with plan.
--- NOTE | 2018-10-10 13:33 | PDOC3 ---
Discharge Summary Date of Admission: Sep 22, 2018 Date of Discharge: Oct 11, 2018 Admitting Diagnosis comment: Altered Mental Status FINAL DIAGNOSIS Altered mental status- multifactorial, Bacteremia, Dysphagia, Schizophrenia, Debility, Acute respiratory failure with possible pneumonia- resolved, Metabolic acidosis with acute renal failure, GI bleed, Thrombocytopenia Brief Hospital Course Pt is a 63yo CF admitted with altered mental status 1. Altered mental status- multifactorial. Family came to evaluate prior to discharge and stated that pt was back to her baseline. Willing to bring her back home with them 2. Bacteremia - stable, afebrile. Repeat blood cultures negative to date. Meropenem stopped 10/08. ID was following 2. dysphagia - pt eating better on discharge; does very well with Boost shakes 3. schizophrenia with metabolic encephalopathy - mild improvement. Continue Haldol and Ativan. 4. debility 5. Acute respiratory failure with possible pneumonia - pt was intubated early in hospitalization to protect her airway. Did well after extubation 6. metabolic acidosis with acute renal failure - resolved 7. GI bleed - stable, Hgb decreasing very slowly but no evidence of ongoing bleed at this time. 8. Thrombocytopenia- improving CONDITION AT DISCHARGE: Improved Discharge Medications Current Medications Sodium Chloride 1,000 ml @ 1,000 mls/hr 1X ONCE IV Last administered on at 17:18; Start 09/22/18 at 17:15; Stop 09/22/18 at 18:14; Status DC Pantoprazole Sodium 80 mg/ Sodium Chloride 100 ml @ 10 mls/hr Q10H IV Last administered on 09/24/18at 05:46; Start 09/22/18 at 17:15; Stop 09/24/18 at 15:43 ; Status DC Pantoprazole Sodium (PROTONIX VIAL for IV PUSH) 80 mg 1X ONCE IVP Last administered on 09/22/18at 17:39; Start 09/22/18 at 17:15; Stop 09/22/18 at 17:17 ; Status DC Ceftriaxone Sodium (Rocephin) 1 gm 1X ONCE IVP ; Start 09/22/18 at 17:30; Stop 09/22/18 at 17:30; Status DC Sodium Chloride 1,000 ml @ 1,000 mls/hr 1X ONCE IV Last administered on at 17:27; Start 09/22/18 at 17:30; Stop 09/22/18 at 18:29; Status DC Vancomycin HCl (Vanco Per Pharmacy) 1 each PRN DAILY PRN MC SEE COMMENTS Last administered on 09/24/18at 21:37; Start 09/22/18 at 17:30; Stop 09/25/18 at 12:02 ; Status DC Piperacillin Sod/ Tazobactam Sod (Zosyn Per Pharmacy) 1 each PRN DAILY PRN MC SEE COMMENTS; Start 09/22/18 at 17:30; Stop 10/03/18 at 11:06; Status DC Piperacillin Sod/ Tazobactam Sod 3.375 gm/Sodium Chloride 50 ml @ 100 mls/hr 1X ONCE IV Last administered on 09/22/18at 18:04; Start 09/22/18 at 17:30; Stop 09/22/18 at 17:59; Status DC Vancomycin HCl 1.75 gm/Sodium Chloride 500 ml @ 250 mls/hr 1X ONCE IV Last administered on 09/22/18at 23:28; Start 09/22/18 at 17:30; Stop 09/22/18 at 19:29 ; Status DC Sodium Bicarbonate (Sodium Bicarb Adult 8.4% Syr) 50 meq 1X ONCE IV Last administered on 09/22/18at 18:03; Start 09/22/18 at 17:45; Stop 09/22/18 at 17:46 ; Status DC Norepinephrine Bitartrate 250 ml @ 0 mls/hr 1X ONCE IV Last administered on at 17:51; Start 09/22/18 at 17:45; Stop 09/22/18 at 17:46; Status DC Sodium Bicarbonate 150 meq/Sterile Water 1,150 ml @ 125 mls/hr 1X ONCE IV Last administered on 09/22/18at 18:30; Start 09/22/18 at 18:30; Stop 09/23/18 at 03:41; Status DC Piperacillin Sod/ Tazobactam Sod 3.375 gm/Sodium Chloride 50 ml @ 100 mls/hr Q6HRS IV Last administered on 10/01/18at 05:20; Start 09/23/18 at 00:00; Stop 10/01/18 at 11:20; Status DC Vasopressin 40 unit/Dextrose 102 ml @ 6 mls/hr CONT PRN IV SEE I/O RECORD Last administered on 09/24/18at 12:53; Start 09/22/18 at 18:45; Stop 09/27/18 at 15:12 ; Status DC Fentanyl Citrate (Fentanyl 2ml Vial) 50 mcg 1X ONCE IV ; Start 09/22/18 at 19: 00; Stop 09/22/18 at 19:01; Status DC Midazolam HCl 100 ml @ 5 mls/hr CONT PRN IV SEE I/O RECORD Last administered on 09/25/18at 19:41; Start 09/22/18 at 19:00; Stop 09/29/18 at 11:55; Status DC Lidocaine/Sodium Bicarbonate (Buffered Lidocaine 1%) 4 ml 1X ONCE INJ Last administered on 09/22/18at 19:15; Start 09/22/18 at 19:15; Stop 09/22/18 at 19:18 ; Status DC Heparin Sodium (Porcine) (Heparin Sodium) 2,500 unit 1X ONCE INT CAT Last administered on 09/22/18at 19:15; Start 09/22/18 at 19:15; Stop 09/22/18 at 19:18 ; Status DC Heparin Sodium (Porcine) (Heparin Sodium) 10,000 unit STK-MED ONCE .ROUTE ; Start 09/22/18 at 19:17; Stop 09/22/18 at 19:18; Status DC Sodium Bicarbonate 40 meq/Potassium Chloride 15 meq/ Magnesium Sulfate 5 meq/ Calcium Chloride 2.5 meq/ Bicarbonate Dialysis Soln w/ out KCl 5,050.5172 ml @ 1 ,000 mls/hr Q5H4M IV Last administered on 09/23/18at 05:02; Start 09/22/18 at 22 :00; Stop 09/23/18 at 08:43; Status DC Sodium Bicarbonate 40 meq/Potassium Chloride 15 meq/ Magnesium Sulfate 5 meq/ Calcium Chloride 2.5 meq/ Bicarbonate Dialysis Soln w/ out KCl 5,050.5172 ml @ 1 ,000 mls/hr Q5H4M IV Last administered on 09/23/18at 05:02; Start 09/22/18 at 22 :00; Stop 09/23/18 at 08:43; Status DC Sodium Bicarbonate 150 meq/Sterile Water 1,150 ml @ 300 mls/hr Q3H50M IV Last administered on 09/24/18at 05:45; Start 09/22/18 at 22:00; Stop 09/24/18 at 15:44 ; Status DC Etomidate (Amidate) 20 mg STK-MED ONCE IV ; Start 09/22/18 at 20:36; Stop at 20:37; Status DC Rocuronium [place] (Zemuron) 50 mg STK-MED ONCE .ROUTE ; Start 09/22/18 at 20:36 ; Stop 09/22/18 at 20:37; Status DC Norepinephrine Bitartrate 250 ml @ 1.875 mls/ hr CONT PRN IV SEE I/O RECORD Last administered on 09/24/18at 12:54; Start 09/22/18 at 23:30; Stop 09/27/18 at 15:53; Status DC Fentanyl Citrate (Fentanyl 2ml Vial) 50 mcg PRN Q1HR PRN IV PAIN Last administered on 09/29/18at 21:48; Start 09/22/18 at 23:30; Stop 10/02/18 at 07:55; Status DC Epinephrine HCl 4 mg/Sodium Chloride 254 ml @ 26.44 mls/ hr CONT PRN IV SEE I/ O RECORD; Start 09/23/18 at 02:15; Stop 09/27/18 at 15:53; Status DC Albuterol/ Ipratropium (Duoneb) 3 ml RTQID NEB Last administered on 10/04/18at 08 :16; Start 09/23/18 at 08:00; Stop 10/04/18 at 08:56; Status DC Sodium Bicarbonate 40 meq/Potassium Chloride 15 meq/ Magnesium Sulfate 5 meq/ Calcium Chloride 17.5 meq/ Bicarbonate Dialysis Soln w/ out KCl 5,061.2315 ml @ 1,000 mls/hr Q5H4M IV Last administered on 09/23/18at 10:13; Start 09/23/18 at 10:00; Stop 09/23/18 at 10:32; Status DC Sodium Bicarbonate 40 meq/Potassium Chloride 15 meq/ Magnesium Sulfate 5 meq/ Calcium Chloride 17.5 meq/ Bicarbonate Dialysis Soln w/ out KCl 5,061.2315 ml @ 1,000 mls/hr Q5H4M IV Last administered on 09/23/18at 10:12; Start 09/23/18 at 10:00; Stop 09/23/18 at 10:33; Status DC Sodium Bicarbonate 40 meq/Potassium Chloride 15 meq/ Magnesium Sulfate 5 meq/ Calcium Chloride 5 meq/ Bicarbonate Dialysis Soln w/ out KCl 5,052.3029 ml @ 1, 000 mls/hr Q5H4M IV Last administered on 09/23/18at 15:40; Start 09/23/18 at 11: 00; Stop 09/23/18 at 19:28; Status DC Sodium Bicarbonate 40 meq/Potassium Chloride 15 meq/ Magnesium Sulfate 5 meq/ Calcium Chloride 5 meq/ Bicarbonate Dialysis Soln w/ out KCl 5,052.3029 ml @ 1, 000 mls/hr Q5H4M IV Last administered on 09/23/18at 15:39; Start 09/23/18 at 10: 45; Stop 09/23/18 at 19:28; Status DC Vancomycin HCl 1 gm/Sodium Chloride 250 ml @ 250 mls/hr Q24H IV Last administered on 09/24/18at 21:38; Start 09/23/18 at 21:00; Stop 09/25/18 at 12:02 ; Status DC Vancomycin HCl (Vancomycin Trough Level) 1 each 1X ONCE MC Last administered on 09/24/18at 20:30; Start 09/24/18 at 20:30; Stop 09/24/18 at 20:31; Status DC Potassium Chloride 15 meq/ Magnesium Sulfate 5 meq/Calcium Chloride 5 meq/ Bicarbonate Dialysis Soln w/ out KCl 5,012.3029 ml @ 1,000 mls/hr Q5H1M IV Last administered on 09/23/18at 23:50; Start 09/23/18 at 20:30; Stop 09/24/18 at 04:06; Status DC Potassium Chloride 35 meq/ Magnesium Sulfate 5 meq/Calcium Chloride 5 meq/ Bicarbonate Dialysis Soln w/ out KCl 5,022.3029 ml @ 1,000 mls/hr Q5H2M IV Last administered on 09/23/18at 23:49; Start 09/23/18 at 20:30; Stop 09/24/18 at 04:06; Status DC Fentanyl Citrate 30 ml @ 0 mls/hr CONT PRN IV SEE PROTOCOL Last administered on 09/27/18at 07:03; Start 09/23/18 at 22:30; Stop 09/27/18 at 15:53; Status DC Chlorhexidine Gluconate (Peridex) 15 ml BID MM Last administered on 09/24/18at 21:41; Start 09/24/18 at 09:00; Stop 09/25/18 at 09:30; Status DC Potassium Chloride 15 meq/ Magnesium Sulfate 2.5 meq/Calcium Chloride 5 meq/ Bicarbonate Dialysis Soln w/ out KCl 5,011.6871 ml @ 1,000 mls/hr Q5H1M IV Last administered on 09/24/18at 04:34; Start 09/24/18 at 04:30; Stop 09/24/18 at 17:00; Status DC Potassium Chloride 35 meq/ Magnesium Sulfate 2.5 meq/Calcium Chloride 5 meq/ Bicarbonate Dialysis Soln w/ out KCl 5,021.6871 ml @ 1,000 mls/hr Q5H2M IV Last administered on 09/24/18at 04:34; Start 09/24/18 at 04:30; Stop 09/24/18 at 17:00; Status DC Sodium Chloride 90 meq/Potassium Chloride 50 meq/ Potassium Phosphate 13.6 mmol/ Magnesium Sulfate 10 meq/ Calcium Gluconate 10 meq/ Multivitamins 10 ml/Chromium / Copper/Manganese/ Seleni/Zn 1 ml/ Total Parenteral Nutrition/Amino Acids/ Dextrose/ Fat Emulsion Intravenous 87.0013 ml @ 3.625 mls/hr TPN CONT IV ; Start 09/24/18 at 22:00; Stop 09/25/18 at 21:59; Status UNV Info (Tpn Per Pharmacy) 1 each PRN DAILY PRN MC SEE COMMENTS Last administered on 10/08/18at 14:12; Start 09/24/18 at 08:15; Stop 10/10/18 at 12:45; Status DC Sodium Acetate 45 meq/Potassium Acetate 25 meq/ Potassium Phosphate 13.6 mmol/ Magnesium Sulfate 10 meq/ Calcium Gluconate 10 meq/ Multivitamins 10 ml/Chromium / Copper/Manganese/ Seleni/Zn 1 ml/ Total Parenteral Nutrition/Amino Acids/ Dextrose/ Fat Emulsion Intravenous 1,422 ml @ 59.25 mls/ hr TPN CONT IV Last administered on 09/24/18at 22:50; Start 09/24/18 at 22:00; Stop 09/25/18 at 21:59 ; Status DC Potassium Chloride/Water 50 ml @ 50 mls/hr Q1H IV Last administered on at 10:39; Start 09/25/18 at 09:00; Stop 09/25/18 at 10:59; Status DC Insulin Human Lispro (HumaLOG) 0-5 UNITS Q6HRS SQ Last administered on at 12:29; Start 09/25/18 at 12:00 Dextrose (Dextrose 50%-Water Syringe) 12.5 gm PRN Q15MIN PRN IV SEE COMMENTS; Start 09/25/18 at 09:30 Famotidine (Pepcid Vial) 20 mg QHS IVP Last administered on 09/30/18at 20:55; Start 09/25/18 at 21:00; Stop 10/01/18 at 11:50; Status DC Linezolid/Dextrose 300 ml @ 300 mls/hr Q12HR IV Last administered on 09/28/18at 08:52; Start 09/25/18 at 13:00; Stop 09/28/18 at 17:06; Status DC Pantoprazole Sodium (PROTONIX VIAL for IV PUSH) 40 mg DAILYAC IVP ; Start at 13:00; Stop 09/25/18 at 13:00; Status DC Sodium Chloride 45 meq/Potassium Acetate 35 meq/ Potassium Phosphate 17 mmol/ Magnesium Sulfate 5 meq/Calcium Gluconate 10 meq/ Multivitamins 10 ml/Chromium/ Copper/Manganese/ Seleni/Zn 1 ml/ Total Parenteral Nutrition/Amino Acids/ Dextrose/ Fat Emulsion Intravenous 1,512 ml @ 63 mls/hr TPN CONT IV Last administered on 09/25/18at 22:10; Start 09/25/18 at 22:00; Stop 09/26/18 at 13:53 ; Status DC Sodium Phosphate 10 mmol/Dextrose 253.3333 ml @ 63.333 m... 1X ONCE IV Last administered on 09/25/18at 16:16; Start 09/25/18 at 16:00; Stop 09/25/18 at 19:59 ; Status DC Amitriptyline HCl (Elavil) 25 mg QHS PO ; Start 09/26/18 at 21:00; Status UNV Non-Formulary Medication (Desvenlafaxine Succinate (Pristiq Er)) 1 tab DAILY PO ; Start 09/27/18 at 09:00; Status UNV Haloperidol (Haldol) 10 mg HS PO Last administered on 09/26/18at 21:20; Start at 21:00; Stop 09/27/18 at 21:07; Status DC Sodium Chloride 45 meq/Potassium Acetate 35 meq/ Potassium Phosphate 17 mmol/ Magnesium Sulfate 5 meq/Calcium Gluconate 10 meq/ Multivitamins 10 ml/Chromium/ Copper/Manganese/ Seleni/Zn 1 ml/ Total Parenteral Nutrition/Amino Acids/ Dextrose/ Fat Emulsion Intravenous 1,512 ml @ 63 mls/hr TPN CONT IV ; Start at 22:00; Stop 09/27/18 at 21:59; Status Cancel Sodium Chloride 45 meq/Potassium Acetate 35 meq/ Potassium Phosphate 17 mmol/ Magnesium Sulfate 5 meq/Calcium Gluconate 10 meq/ Multivitamins 10 ml/Chromium/ Copper/Manganese/ Seleni/Zn 1 ml/ Total Parenteral Nutrition/Amino Acids/ Dextrose/ Fat Emulsion Intravenous 1,512 ml @ 63 mls/hr TPN CONT IV Last administered on 09/26/18at 21:31; Start 09/26/18 at 22:00; Stop 09/27/18 at 21:59 ; Status DC Lorazepam (Ativan) 0.5 mg PRN Q6HRS PRN PO ANXIETY / AGITATION Last administered on 09/30/18at 20:54; Start 09/27/18 at 08:15; Stop 10/03/18 at 12:14; Status DC Sodium Chloride 45 meq/Potassium Acetate 35 meq/ Potassium Phosphate 17 mmol/ Magnesium Sulfate 5 meq/Calcium Gluconate 10 meq/ Multivitamins 10 ml/Chromium/ Copper/Manganese/ Seleni/Zn 1 ml/ Total Parenteral Nutrition/Amino Acids/ Dextrose/ Fat Emulsion Intravenous 1,512 ml @ 63 mls/hr TPN CONT IV Last administered on 09/27/18at 21:34; Start 09/27/18 at 22:00; Stop 09/28/18 at 21:59 ; Status DC Haloperidol Lactate (Haldol Inj) 10 mg HS IVP Last administered on 09/27/18at 21 :33; Start 09/27/18 at 22:00; Stop 09/28/18 at 07:58; Status DC Lorazepam (Ativan) 0.5 mg PRN Q6HRS PRN IV ANXIETY / AGITATION Last administered on 10/07/18at 15:49; Start 09/27/18 at 21:15 Haloperidol (Haldol) 10 mg PRN QHS PRN PO AGITATION IF TAKING PO; Start at 21:15; Stop 09/28/18 at 08:02; Status DC Haloperidol (Haldol) 5 mg QHS PO Last administered on 10/02/18at 22:20; Start 09/28/18 at 21:00; Stop 10/03/18 at 12:14; Status DC Sodium Chloride 45 meq/Potassium Acetate 35 meq/ Potassium Phosphate 17 mmol/ Magnesium Sulfate 5 meq/Calcium Gluconate 10 meq/ Multivitamins 10 ml/Chromium/ Copper/Manganese/ Seleni/Zn 1 ml/ Total Parenteral Nutrition/Amino Acids/ Dextrose/ Fat Emulsion Intravenous 1,512 ml @ 63 mls/hr TPN CONT IV Last administered on 09/28/18at 23:00; Start 09/28/18 at 22:00; Stop 09/29/18 at 21:59; Status DC Ondansetron HCl (Zofran) 4 mg PRN Q6HRS PRN IV NAUSEA/VOMITING; Start 09/29/18 at 11:30 Sodium Chloride 40 meq/Potassium Acetate 35 meq/ Potassium Phosphate 17 mmol/ Magnesium Sulfate 5 meq/Calcium Gluconate 10 meq/ Multivitamins 10 ml/Chromium/ Copper/Manganese/ Seleni/Zn 1 ml/ Total Parenteral Nutrition/Amino Acids/ Dextrose/ Fat Emulsion Intravenous 1,512 ml @ 63 mls/hr TPN CONT IV Last administered on 09/29/18at 21:18; Start 09/29/18 at 22:00; Stop 09/30/18 at 21:59; Status DC Haloperidol Lactate (Haldol Inj) 5 mg 1X ONCE IM Last administered on at 15:15; Start 09/29/18 at 15:15; Stop 09/29/18 at 15:16; Status DC Sodium Chloride 30 meq/Sodium Acetate 10 meq/ Potassium Acetate 35 meq/ Potassium Phosphate 17 mmol/ Magnesium Sulfate 5 meq/Calcium Gluconate 10 meq/ Multivitamins 10 ml/Chromium/ Copper/Manganese/ Seleni/Zn 1 ml/ Total Parenteral Nutrition/Amino Acids/Dextrose/ Fat Emulsion Intravenous 1,512 ml @ 63 mls/hr TPN CONT IV Last administered on 09/30/18at 20:56; Start 09/30/18 at 22 :00; Stop 10/01/18 at 21:59; Status DC Acetaminophen (Tylenol) 650 mg PRN Q6HRS PRN PO FEVER Last administered on 15:22; Start 09/30/18 at 14:00 Meropenem 500 mg/ Sodium Chloride 50 ml @ 100 mls/hr Q8HRS IV Last administered on 10/03/18 06:00; Start 10/01/18 at 14:00; Stop 10/03/18 at 12:38; Status DC Vancomycin HCl (Vanco Per Pharmacy) 1 each PRN DAILY PRN MC SEE COMMENTS Last administered on 10/02/18 15:33; Start 10/01/18 at 11:30; Stop 10/03/18 at 12:42; Status DC Micafungin Sodium 100 mg/Dextrose 100 ml @ 100 mls/hr Q24H IV Last administered on 10/04/18 11:09; Start 10/01/18 at 12:00; Stop 10/04/18 at 18:51; Status DC Vancomycin HCl 1.75 gm/Sodium Chloride 500 ml @ 250 mls/hr 1X ONCE IV Last administered on 10/01/18 15:01; Start 10/01/18 at 12:00; Stop 10/01/18 at 13:59; Status DC Famotidine (Pepcid) 20 mg QHS PO Last administered on 10/09/18 20:29; Start at 21:00 Sodium Chloride 30 meq/Sodium Acetate 10 meq/ Potassium Acetate 35 meq/ Potassium Phosphate 17 mmol/ Magnesium Sulfate 10 meq/Calcium Gluconate 10 meq/ Multivitamins 10 ml/Chromium/ Copper/Manganese/ Seleni/Zn 1 ml/ Total Parenteral Nutrition/Amino Acids/Dextrose/ Fat Emulsion Intravenous 1,512 ml @ 63 mls/hr TPN CONT IV Last administered on 10/01/18 22:10; Start 10/01/18 at 22 :00; Stop 10/02/18 at 21:59; Status DC Lactobacillus Rhamnosus (Culturelle) 1 cap BID PO Last administered on 09:36; Start 10/01/18 at 21:00 Vancomycin HCl 1 gm/Sodium Chloride 250 ml @ 250 mls/hr Q24H IV Last administered on 10/02/18 15:46; Start 10/02/18 at 15:00; Stop 10/03/18 at 12:38; Status DC Vancomycin HCl (Vancomycin Trough Level) 1 each 1X ONCE MC ; Start 10/03/18 at 14:30; Stop 10/03/18 at 14:30; Status DC Sodium Chloride 30 meq/Sodium Acetate 10 meq/ Potassium Acetate 35 meq/ Potassium Phosphate 17 mmol/ Magnesium Sulfate 10 meq/Calcium Gluconate 10 meq/ Multivitamins 10 ml/Chromium/ Copper/Manganese/ Seleni/Zn 1 ml/ Total Parenteral Nutrition/Amino Acids/Dextrose/ Fat Emulsion Intravenous 1,512 ml @ 63 mls/hr TPN CONT IV Last administered on 10/02/18at 22:21; Start 10/02/18 at 22 :00; Stop 10/03/18 at 21:59; Status DC Magnesium Sulfate/ Dextrose 100 ml @ 100 mls/hr 1X ONCE IV Last administered on 10/02/18at 17:18; Start 10/02/18 at 15:30; Stop 10/02/18 at 16:29; Status DC Haloperidol (Haldol) 10 mg QHS PO Last administered on 10/04/18at 22:00; Start at 21:00; Stop 10/05/18 at 07:49; Status DC Lorazepam (Ativan) 0.5 mg TID PO Last administered on 10/04/18at 21:59; Start 10/03/18 at 14:00; Stop 10/05/18 at 07:49; Status DC Meropenem 1 gm/ Sodium Chloride 100 ml @ 200 mls/hr Q8HRS IV Last administered on 10/08/18at 05:46; Start 10/03/18 at 14:00; Stop 10/08/18 at 12:35 ; Status DC Sodium Chloride 30 meq/Sodium Acetate 10 meq/ Potassium Acetate 10 meq/Sodium Phosphate 13.6 mmol/Magnesium Sulfate 10 meq/ Calcium Gluconate 10 meq/ Multivitamins 10 ml/Chromium/ Copper/Manganese/ Seleni/Zn 1 ml/ Total Parenteral Nutrition/Amino Acids/Dextrose/ Fat Emulsion Intravenous 1,512 ml @ 63 mls/hr TPN CONT IV Last administered on 10/03/18at 20:47; Start 10/03/18 at 22 :00; Stop 10/04/18 at 21:59; Status DC Sodium Chloride 30 meq/Sodium Acetate 10 meq/ Potassium Acetate 10 meq/Sodium Phosphate 13.6 mmol/Magnesium Sulfate 10 meq/ Calcium Gluconate 10 meq/ Multivitamins 10 ml/Chromium/ Copper/Manganese/ Seleni/Zn 1 ml/ Total Parenteral Nutrition/Amino Acids/Dextrose/ Fat Emulsion Intravenous 1,512 ml @ 63 mls/hr TPN CONT IV Last administered on 10/04/18at 22:00; Start 10/04/18 at 22 :00; Stop 10/05/18 at 21:59; Status DC Haloperidol (Haldol) 10 mg BID PO Last administered on 10/06/18at 20:19; Start at 09:00; Stop 10/07/18 at 11:32; Status DC Lorazepam (Ativan) 1 mg TID PO Last administered on 10/10/18at 09:36; Start 10/05 at 09:00 Sodium Chloride 30 meq/Sodium Acetate 10 meq/ Potassium Acetate 10 meq/Sodium Phosphate 13.6 mmol/Magnesium Sulfate 10 meq/ Calcium Gluconate 10 meq/ Multivitamins 10 ml/Chromium/ Copper/Manganese/ Seleni/Zn 1 ml/ Total Parenteral Nutrition/Amino Acids/Dextrose/ Fat Emulsion Intravenous 1,512 ml @ 63 mls/hr TPN CONT IV Last administered on 10/05/18at 21:27; Start 10/05/18 at 22 :00; Stop 10/06/18 at 21:59; Status DC Sodium Chloride 20 meq/Sodium Acetate 20 meq/ Potassium Acetate 10 meq/Sodium Phosphate 13.6 mmol/Magnesium Sulfate 10 meq/ Calcium Gluconate 10 meq/ Multivitamins 10 ml/Chromium/ Copper/Manganese/ Seleni/Zn 1 ml/ Total Parenteral Nutrition/Amino Acids/Dextrose/ Fat Emulsion Intravenous 1,512 ml @ 63 mls/hr TPN CONT IV Last administered on 10/06/18at 22:11; Start 10/06/18 at 22 :00; Stop 10/07/18 at 21:59; Status DC Haloperidol (Haldol) 10 mg TID PO Last administered on 10/10/18at 09:36; Start 10/07/18 at 14:00 Sodium Chloride 20 meq/Sodium Acetate 20 meq/ Sodium Phosphate 13.6 mmol/ Potassium Acetate 10 meq/Magnesium Sulfate 10 meq/ Calcium Gluconate 10 meq/ Multivitamins 10 ml/Chromium/ Copper/Manganese/ Seleni/Zn 1 ml/ Total Parenteral Nutrition/Amino Acids/Dextrose/ Fat Emulsion Intravenous 1,512 ml @ 63 mls/hr TPN CONT IV Last administered on 10/07/18at 21:17; Start 10/07/18 at 22:00; Stop 10/08/18 at 21:59; Status DC Haloperidol (Haldol) 10 mg 1X ONCE PO Last administered on 10/07/18at 16:41; Start 10/07/18 at 16:30; Stop 10/07/18 at 16:31; Status DC Sodium Acetate 40 meq/Sodium Phosphate 13.6 mmol/Potassium Acetate 10 meq/ Magnesium Sulfate 10 meq/Calcium Gluconate 10 meq/ Multivitamins 10 ml/Chromium / Copper/Manganese/ Seleni/Zn 1 ml/ Total Parenteral Nutrition/Amino Acids/ Dextrose/ Fat Emulsion Intravenous 1,512 ml @ 63 mls/hr TPN CONT IV ; Start at 22:00; Stop 10/09/18 at 21:59; Status DC Active Scripts Active Reported [iron] 325 Mg PO Haloperidol 10 Mg Tablet 10 Mg PO QHS Ventolin Hfa Inhaler (Albuterol Sulfate) 18 Gm Hfa.aer.ad 2 Puff INH Q4HRS PRN Pristiq Er (Desvenlafaxine Succinate) 50 Mg Tab.er.24h 1 Tab PO DAILY Amitriptyline Hcl 25 Mg Tablet 1 Tab PO QHS Diazepam 5 Mg Tablet 5 Mg PO TID Gabapentin (Gabapentin) 300 Mg Capsule 300 Mg PO TID Vital Signs Vital Signs Date Time Temp Pulse Resp B/P (MAP) Pulse Ox O2 Delivery O2 Flow Rate FiO2 10/10/18 10:01 98.7 104 18 107/62 (77) 97 Room Air 98.7 10/10/18 08:00 2.0 Labs Laboratory Tests Test 10/08/18 18:13 10/08/18 23:54 10/09/18 06:03 10/09/18 12:24 Glucose (Fingerstick) 107 mg/dL (70-99) 88 mg/dL (70-99) 88 mg/dL (70-99) 211 mg/dL (70-99) Test 10/09/18 17:22 Glucose (Fingerstick) 96 mg/dL (70-99) Laboratory Tests Test 10/09/18 17:22 Glucose (Fingerstick) 96 mg/dL (70-99) Allergies Allergies Coded Allergies Type Severity Reaction Last Updated Verified morphine Allergy Severe swelling 07/01/18 Yes aspirin Allergy Intermediate 07/05/18 Yes oxycodone Allergy Intermediate 07/05/18 Yes I S O L A T I O N *CONTACT* Allergy Unknown 09/24/18 Yes Disposition/Orders: D/C to Home TRUONG THOMAS MD Oct 10, 2018 13:33
--- NOTE | 2018-10-10 14:30 | NUR ---
LILA notified this RN that patient son, Shiva, is willing to take patient home with self care and confirmed that this is her baseline mental status. This RN paged Dr. Hill, whom agreed with this discharge plan and put discharge orders in on this patient. Upon sonShiva, arrival, pt was extremely tearful, stating "I don't know how I am going to do this, I work 14 hours per day." This RN asked Shiva, if he was still willing and capable of taking her home because we have exhausted our resources on finding placement for this patient. Shiva stated "yes I am for sure taking this patient home today." This RN explained everything that the nursing staff has been doing for the patient as far as ADL's- toileting, dressing, meals, medications, etc. After discussing all this information, dinora, still willing to take patient home. Patient discharged via wheelchair with all belongings given to son.
--- NOTE | 2018-12-13 14:35 | RAD ---
Portable chest, 09/29/2018, 10:28 AM: HISTORY: Cough, pulled out dialysis catheter This study is just now being presented for review on a delayed basis due to PACS issues. Comparison is made to a study from 09/28/2018. The right jugular dialysis type catheter has been removed. The heart is enlarged. No pulmonary infiltrate, pleural fluid or pneumothorax is evident. Electronically signed by: Syd Jefferson MD (12/13/2018 2:33 PM) [facility]
== END 2018-10-10 14:30 | disposition home or self-care (01) | DRG 870 ==
LOC: ER 16:56 → 1 WEST ICU 17:58 → 6 SOUTH 09-28 10:10
PROVIDERS: ADMIT Family Medicine; ATTEND Family Medicine
PROC: 5A1955Z Respiratory Ventilation, Greater than 96 Consecutive Hours (ICD-10-PCS; principal; 2018-09-22)
PROC: 0BH17EZ Insertion of Endotracheal Airway into Trachea, Via Natural or Artificial Opening (ICD-10-PCS; 2018-09-22)
PROC: 02HV33Z Insertion of Infusion Device into Superior Vena Cava, Percutaneous Approach (ICD-10-PCS; 2018-09-22)
PROC: 30233K1 Transfusion of Nonautologous Frozen Plasma into Peripheral Vein, Percutaneous Approach (ICD-10-PCS; 2018-09-22)
PROC: 30233N1 Transfusion of Nonautologous Red Blood Cells into Peripheral Vein, Percutaneous Approach (ICD-10-PCS; 2018-09-22)
PROC: 5A1D90Z Performance of Urinary Filtration, Continuous, Greater than 18 hours Per Day (ICD-10-PCS; 2018-09-23)
PROC: 0DJ08ZZ Inspection of Upper Intestinal Tract, Via Natural or Artificial Opening Endoscopic (ICD-10-PCS; 2018-09-24)
PROC: 02H633Z Insertion of Infusion Device into Right Atrium, Percutaneous Approach (ICD-10-PCS; 2018-09-25)
PROC: B543ZZA Ultrasonography of Right Jugular Veins, Guidance (ICD-10-PCS; 2018-09-25)
DX: A41.59 Other Gram-negative sepsis (principal); J96.00 Acute respiratory failure, unspecified whether with hypoxia or hypercapnia; R65.21 Severe sepsis with septic shock; J18.9 Pneumonia, unspecified organism; G93.41 Metabolic encephalopathy; K29.71 Gastritis, unspecified, with bleeding; N17.9 Acute kidney failure, unspecified; E46 Unspecified protein-calorie malnutrition; J98.11 Atelectasis; E87.5 Hyperkalemia; D64.9 Anemia, unspecified; D69.6 Thrombocytopenia, unspecified; E86.1 Hypovolemia; F20.9 Schizophrenia, unspecified; F31.9 Bipolar disorder, unspecified; I10 Essential (primary) hypertension; J45.909 Unspecified asthma, uncomplicated; R13.10 Dysphagia, unspecified; Z96.659 Presence of unspecified artificial knee joint; F41.9 Anxiety disorder, unspecified; R73.9 Hyperglycemia, unspecified; E83.51 Hypocalcemia; Z82.49 Family history of ischemic heart disease and other diseases of the circulatory system; Z86.73 Personal history of transient ischemic attack (TIA), and cerebral infarction without residual deficits; Z87.891 Personal history of nicotine dependence; Z90.49 Acquired absence of other specified parts of digestive tract; Z90.710 Acquired absence of both cervix and uterus; Z98.84 Bariatric surgery status; Z88.6 Allergy status to analgesic agent; Z88.5 Allergy status to narcotic agent; Z88.8 Allergy status to other drugs, medicaments and biological substances; Z79.899 Other long term (current) drug therapy; Z68.28 Body mass index [BMI] 28.0-28.9, adult
CPT/HCPCS: 31500; 36415; 36556; 36569; 36600; 43235; 51702; 70450; 71045; 71250; 74176; 76937; 80047; 80048; 80053; 80202; 80307; 80329; 81001; 82010; 82040; 82274; 82550; 82607; 82803; 82805; 82962; 83036; 83540; 83550; 83605; 83690; 83735; 83880; 83930; 84100; 84145; 84478; 84484; 85007; 85025; 85027; 85045; 85610; 85730; 86704; 86850; 86900; 86901; 86920; 86927; 87040; 87070; 87077; 87086; 87103; 87205; 87340; 87493; 87641; 93005; 94002; 94003; 94640; 94760; 96361; 96365; 96368; 96375; 99292; A4215; C1892; C9113; G0480; J0610; J1630; J1815; J2020; J2060; J2185; J2248; J2250; J2543; J3010; J3370; J3475; J3480; J3490; J7030; J7040; J7050; J7620; P9016; P9017; 92526; 92610; 97110; 97116; 97530; 97535; 99291-25

== ENCOUNTER 2018-10-20 08:40 | Inpatient (IN) | payer MEDICARE, MEDICAID ==
[~2018-10-20] VITALS: Ht 157.5 cm; Wt 66.2 kg
[~2018-10-20 08:40] MED LIST changes: +HALO10TA PO; +HALO5TAB PO; +MERO1VIA15 IV; +Tpn Per Pharmacy MC; +iron PO
--- NOTE | 2018-10-20 09:02 | PHYS DOC ---
Past Medical History Past Medical History: Bipolar, Hypertension Additional Past Medical Histor: BIPOLAR, 09/22 UNKNOWN UNRESPONSIVE Past Surgical History: Cholecystectomy, Other Additional Past Surgical Histo: LEFT SHOULDER Alcohol Use: Occasionally Drug Use: Marijuana Adult General HPI HPI Patient is a 63 year old female who presents with altered mental status. Per the EMS report, her son found her this morning not recognizing him. Patient denies any complaints., No chest pain, no difficulty breathing, no fever, no dysuria, no headache. Patient does admit to having a drink last night as well as smoking marijuana last night.[] Review of Systems Review of Systems Constitutional: Denies fever or chills [] Eyes: Denies change in visual acuity, redness, or eye pain [] HENT: Denies nasal congestion or sore throat [] Respiratory: Denies cough or shortness of breath [] Cardiovascular: No chest pain or palpitations[] GI: Denies abdominal pain, nausea, vomiting, bloody stools or diarrhea [] : Denies dysuria or hematuria [] Musculoskeletal: Denies back pain or joint pain [] Integument: Denies rash or skin lesions [] Neurologic: Denies headache, focal weakness or sensory changes [] Endocrine: Denies polyuria or polydipsia [] All other systems were reviewed and found to be within normal limits, except as documented in this note. Allergies Allergies Allergies Coded Allergies Type Severity Reaction Last Updated Verified morphine Allergy Severe swelling 07/01/18 Yes aspirin Allergy Intermediate 07/05/18 Yes oxycodone Allergy Intermediate 07/05/18 Yes I S O L A T I O N *CONTACT* Allergy Unknown 09/24/18 Yes Physical Exam Physical Exam Constitutional: Well developed, well nourished, no acute distress, non-toxic appearance. [] HENT: Normocephalic, atraumatic, bilateral external ears normal, oropharynx moist, no oral exudates, nose normal. [] Eyes: PERRLA, EOMI, conjunctiva normal, no discharge. [] Neck: Normal range of motion, no tenderness, supple, no stridor. [] Cardiovascular:Heart rate regular rhythm, no murmur [] Lungs & Thorax: Bilateral breath sounds clear to auscultation [] Abdomen: Bowel sounds normal, soft, no tenderness, no masses, no pulsatile masses. [] Skin: Warm, dry, no erythema, no rash. [] Back: No tenderness, no CVA tenderness. [] Extremities: No tenderness, no cyanosis, no clubbing, ROM intact, no edema. [] Neurologic: Alert and oriented to person and place, believes that it is Monday, normal motor function, normal sensory function, no focal deficits noted. Normal gait [] Psychologic: Affect flat. [] Current Patient Data Vital Signs Vital Signs Date Time Temp Pulse Resp B/P (MAP) Pulse Ox O2 Delivery O2 Flow Rate FiO2 10/20/18 09:15 97.7 88 18 121/56 (77) 100 Room Air 97.7 Lab Values Laboratory Tests Test 10/20/18 09:10 10/20/18 09:40 White Blood Count 5.9 x10^3/uL (4.0-11.0) Red Blood Count 3.45 x10^6/uL (3.50-5.40) L Hemoglobin 10.4 g/dL (12.0-15.5) L Hematocrit 31.9 % (36.0-47.0) L Mean Corpuscular Volume 93 fL (79-100) Mean Corpuscular Hemoglobin 30 pg (25-35) Mean Corpuscular Hemoglobin Concent 33 g/dL (31-37) Red Cell Distribution Width 16.8 % (11.5-14.5) H Platelet Count 228 x10^3/uL (140-400) Neutrophils (%) (Auto) 52 % (31-73) Lymphocytes (%) (Auto) 34 % (24-48) Monocytes (%) (Auto) 9 % (0-9) Eosinophils (%) (Auto) 5 % (0-3) H Basophils (%) (Auto) 1 % (0-3) Neutrophils # (Auto) 3.0 x10^3uL (1.8-7.7) Lymphocytes # (Auto) 2.0 x10^3/uL (1.0-4.8) Monocytes # (Auto) 0.5 x10^3/uL (0.0-1.1) Eosinophils # (Auto) 0.3 x10^3/uL (0.0-0.7) Basophils # (Auto) 0.1 x10^3/uL (0.0-0.2) Prothrombin Time 13.2 SEC (11.7-14.0) Prothrombin Time INR 1.0 (0.8-1.1) Sodium Level 148 mmol/L (136-145) H Potassium Level 3.6 mmol/L (3.5-5.1) Chloride Level 113 mmol/L (98-107) H Carbon Dioxide Level 23 mmol/L (21-32) Anion Gap 12 (6-14) Blood Urea Nitrogen 11 mg/dL (7-20) Creatinine 0.7 mg/dL (0.6-1.0) Estimated GFR (Cockcroft-Gault) 84.2 BUN/Creatinine Ratio 16 (6-20) Glucose Level 91 mg/dL (70-99) Calcium Level 8.4 mg/dL (8.5-10.1) L Magnesium Level 1.9 mg/dL (1.8-2.4) Total Bilirubin 0.5 mg/dL (0.2-1.0) Aspartate Amino Transferase (AST) 21 U/L (15-37) Alanine Aminotransferase (ALT) 17 U/L (14-59) Alkaline Phosphatase 92 U/L (46-116) Troponin I Quantitative < 0.017 ng/mL (0.000-0.055) RI-Hso-K-Type Natriuretic Peptide 237 pg/mL (0-124) H Total Protein 6.0 g/dL (6.4-8.2) L Albumin 2.6 g/dL (3.4-5.0) L Albumin/Globulin Ratio 0.8 (1.0-1.7) L Ethyl Alcohol Level < 10 mg/dL (0-10) Urine Collection Type U cath Urine Color Yellow Urine Clarity Clear Urine pH 6.0 Urine Specific [place] 1.015 Urine Protein Negative mg/dL (NEG-TRACE) Urine Glucose (UA) Negative mg/dL (NEG) Urine Ketones (Stick) Negative mg/dL (NEG) Urine Blood Negative (NEG) Urine Nitrite Negative (NEG) Urine Bilirubin Negative (NEG) Urine Urobilinogen Dipstick 1.0 mg/dL (0.2 mg/dL) Urine Leukocyte Esterase Negative (NEG) Urine RBC Occ /HPF (0-2) Urine WBC 1-4 /HPF (0-4) Urine Squamous Epithelial Cells Few /LPF Urine Renal Epithelial Cells Occ /LPF Urine Bacteria Moderate /HPF (0-FEW) Urine Hyaline Casts Occasional /HPF Urine Mucus Marked /LPF Urine Opiates Screen Neg (NEG) Urine Methadone Screen Neg (NEG) Urine Barbiturates Neg (NEG) Urine Phencyclidine Screen Neg (NEG) Urine Amphetamine/Methamphetamine Neg (NEG) Urine Benzodiazepines Screen Pos (NEG) Urine Cocaine Screen Neg (NEG) Urine Cannabinoids Screen Pos (NEG) Urine Ethyl Alcohol Neg (NEG) Laboratory Tests 10/20/18 09:10 Laboratory Tests 10/20/18 09:10 EKG EKG EKG shows a sinus rhythm at 79 bpm, normal axis, QTC 432 ms, no ST elevations, no acute changes when compared with EKG of 09/22/2018. Interpreted by me at 0905[ ] Radiology/Procedures Radiology/Procedures PORTABLE CHEST 1V History: ALTERED MENTAL STATUS Comparison: September 29, 2018 Findings: AP view of the chest is submitted. There are again bilateral shoulder arthroplasties. Heart size is stable, within normal limits. Previously seen left upper extremity PICC has been removed. There is no infiltrate, pleural fluid, pneumothorax. There are left upper quadrant clips in the abdomen. Impression: 1. No acute radiographic abnormality is identified. CT HEAD WO CONTRAST History: Altered mental status Comparison: 09/22/2018 Technique: Noncontrast CT imaging was performed of the head. Exposure: One or more of the following individualized dose reduction techniques were utilized for this examination: 1. Automated exposure control 2. Adjustment of the mA and/or kV according to patient size 3. Use of iterative reconstruction technique. Findings: No acute extra-axial or parenchymal hemorrhage is identified. There is no significant intra-axial mass effect, midline shift, or extra-axial fluid collection. The mazariegos-white differentiation of the major vascular territories is preserved. There is again mild generalized supratentorial atrophy. Ventricular size is stable, proportionate to sulcal spaces. There is minimal ill-defined low-density of the supratentorial parenchyma bilaterally. The mastoid air cells and the visualized paranasal sinuses are aerated. No acute calvarial abnormality is identified. Impression: 1. No acute intracranial abnormality is identified. There is again mild supratentorial atrophy. Mild ill-defined low-density of the supratentorial parenchyma is nonspecific, may be due to chronic microvascular ischemic disease.[] Course & Med Decision Making Course & Med Decision Making Pertinent Labs and Imaging studies reviewed. (See chart for details) ED course: Patient arrived, was placed in bed, and tolerated exam well. She was transported to and from [place] without any complications. After the return of the laboratory and imaging findings, these were discussed with the patient. No family member had arrived to further elaborate her altered mental status be on the EMS report. Consultation was made with the on-call member of her primary care team who will be admitting her. Medical decision making: Patient does not appear to have an intracranial mass or bleed. This does not appear to be a stroke syndrome. This does not appear to be a significant electrolyte abnormality. Do not believe that this is due to hyperammonemia despite her history of alcohol use, however an ammonia level is pending. No evidence of a urinary tract infection. No evidence of hypertensive encephalopathy. No evidence of drug use above and beyond which she admitted to, the THC, and the medications that she is prescribed. This may be due to her underlying bipolar disorder and/or the mental health medicines she is taking.[] Dragon Disclaimer Dragon Disclaimer This electronic medical record was generated, in whole or in part, using a voice recognition dictation system. Departure Departure Impression: Primary Impression: Altered mental status Additional Impression: Bipolar disorder Disposition: 09 ADMITTED INPATIENT Admitting Physician: Nano Seay Condition: IMPROVED Referrals: NANO SEAY MD (PCP) Problem Qualifiers Primary Impression: Altered mental status Altered mental status type: unspecified Qualified Codes: R41.82 - Altered mental status, unspecified Additional Impression: Bipolar disorder Active/Remission status: remission status unspecified Qualified Codes: F31.9 - Bipolar disorder, unspecified JOSEPH SANTOS DO Oct 20, 2018 09:02
[2018-10-20 09:19] LABS: BASO # 0.1 x10^3/uL (0.0-0.2); BASO % 1 % (0-3); EOS # 0.3 x10^3/uL (0.0-0.7); EOS % 5 % (0-3); HEMATOCRIT 31.9 % (36.0-47.0); HEMOGLOBIN 10.4 g/dL (12.0-15.5); LYMPH % 34 % (24-48); MEAN CORPUSCULAR HEMOGLOBIN 30 pg (25-35); MEAN CORPUSCULAR HGB CONC 33 g/dL (31-37); MEAN CORPUSCULAR VOLUME 93 fL (79-100); MONO # 0.5 x10^3/uL (0.0-1.1); MONO % 9 % (0-9); NEUT % 52 % (31-73); PLATELET COUNT 228 x10^3/uL (140-400); RED BLOOD COUNT 3.45 x10^6/uL (3.50-5.40); RED CELL DISTRIBUTION WIDTH 16.8 % (11.5-14.5); WHITE BLOOD COUNT 5.9 x10^3/uL (4.0-11.0)
[2018-10-20 09:26] LABS: PROTHROMBIN TIME PATIENT 13.2 SEC (11.7-14.0)
[2018-10-20 09:33] LABS: CALCIUM 8.4 mg/dL (8.5-10.1); CREATININE 0.7 mg/dL (0.6-1.0); GFR 84.2; POTASSIUM 3.6 mmol/L (3.5-5.1)
[2018-10-20 09:43] LABS: ALBUMIN 2.6 g/dL (3.4-5.0); ALBUMIN/GLOBULIN RATIO 0.8 (1.0-1.7); MAGNESIUM 1.9 mg/dL (1.8-2.4); TOTAL BILIRUBIN 0.5 mg/dL (0.2-1.0)
--- NOTE | 2018-10-20 09:44 | RAD ---
PORTABLE CHEST 1V History: ALTERED MENTAL STATUS Comparison: September 29, 2018 Findings: AP view of the chest is submitted. There are again bilateral shoulder arthroplasties. Heart size is stable, within normal limits. Previously seen left upper extremity PICC has been removed. There is no infiltrate, pleural fluid, pneumothorax. There are left upper quadrant clips in the abdomen. Impression: 1. No acute radiographic abnormality is identified. Electronically signed by: Valdemar Wolff MD (10/20/2018 9:41 AM) [facility]
--- NOTE | 2018-10-20 09:46 | RAD ---
CT HEAD WO CONTRAST History: Altered mental status Comparison: 09/22/2018 Technique: Noncontrast CT imaging was performed of the head. Exposure: One or more of the following individualized dose reduction techniques were utilized for this examination: 1. Automated exposure control 2. Adjustment of the mA and/or kV according to patient size 3. Use of iterative reconstruction technique. Findings: No acute extra-axial or parenchymal hemorrhage is identified. There is no significant intra-axial mass effect, midline shift, or extra-axial fluid collection. The mazariegos-white differentiation of the major vascular territories is preserved. There is again mild generalized supratentorial atrophy. Ventricular size is stable, proportionate to sulcal spaces. There is minimal ill-defined low-density of the supratentorial parenchyma bilaterally. The mastoid air cells and the visualized paranasal sinuses are aerated. No acute calvarial abnormality is identified. Impression: 1. No acute intracranial abnormality is identified. There is again mild supratentorial atrophy. Mild ill-defined low-density of the supratentorial parenchyma is nonspecific, may be due to chronic microvascular ischemic disease. Electronically signed by: Valdemar Wolff MD (10/20/2018 9:44 AM) [facility]
[2018-10-20 09:54] LABS: BILIRUBIN,URINE NEGATIVE (NEG); CLARITY,URINE CLEAR; COLOR,URINE YELLOW; NITRITE,URINE NEGATIVE (NEG); PROTEIN,URINE NEGATIVE (NEG-TRACE)
[2018-10-20 09:58] LABS: BARBITURATES NEG (NEG); BENZODIAZEPINES POS (NEG); CANNABINOIDS POS (NEG); COCAINE NEG (NEG); METHADONE NEG (NEG); OPIATES NEG (NEG); PHENCYCLIDINE NEG (NEG)
[2018-10-20 10:02] LABS: HYALINE CASTS, URINE OCCASIONAL /HPF; SQUAMOUS EPITHELIAL CELL,UR FEW /LPF
[2018-10-20 10:03] LABS: RBC,URINE OCC /HPF (0-2)
[2018-10-20 10:04] LABS: AMPHETAMINE/METHAMPHETAMINE NEG (NEG); BACTERIA,URINE MODERATE /HPF (0-FEW)
--- NOTE | 2018-10-20 10:09 | EKG ---
[facility] [address] [place] [address] Test Date: 2018-10-20 Test Time: 09:04:38 Pat Name: ISABELL BUCIO Department: Room: Gender: F Appointment Manager: : [id number] Requested By: JOSEPH SANTOS Order Number: [id number] Reading MD: Jair Vasquez MD Measurements Intervals [place] Rate: 79 P: 36 [place]: 138 QRS: 43 QRSD: 80 T: 48 QT: 376 QTc: 432 Interpretive Statements SINUS RHYTHM NON-SPECIFIC ST/T CHANGES Electronically Signed On 10-22-2018 10:15:06 CDT by Jair Vasquez MD
[2018-10-20] MEDS ORDERED: ONDANSETRON PF 4 MG/2 ML VIAL. IV PRN (10:30)
--- NOTE | 2018-10-20 10:56 | NUR ---
The patient, ISABELL BUCIO, 63 y/o, F admitted by MILY COOK MD, was given written information regarding hospital policies, unit procedures and contact persons. Valuables were checked and pt has no valuables on her. asking for staff to call her son at "[employer]" but does not know phone number or location. oriented to room and call light. bed alarm turned on. will monitor this patient.
[2018-10-20 11:00] VITALS: BP 113/66
--- NOTE | 2018-10-20 13:03 | PDOC1 ---
History and Physical Date of Admission Date of Admission 10/20/18 Past Medical History Cardiovascular: HTN Psych: Anxiety, Bipolar, Depression Family History Family History: Hypertension Social History ALCOHOL: none Drugs: None Current Problem List Problem List Problems Medical Problems: (1) Altered mental status Status: Acute (2) Bipolar disorder Status: Acute Current Medications Current Medications Current Medications Medications (Trade) Dose Ordered Sig/Ashli Start Time Stop Time Status Last Admin Dose Admin Acetaminophen (Tylenol) 650 mg PRN Q4HRS PRN 10/20/18 10:30 10/21/18 10:29 Ondansetron HCl (Zofran) 4 mg PRN Q8HRS PRN 10/20/18 10:30 10/21/18 10:29 Allergies Allergies Allergies Coded Allergies Type Severity Reaction Last Updated Verified morphine Allergy Severe swelling 07/01/18 Yes aspirin Allergy Intermediate 07/05/18 Yes oxycodone Allergy Intermediate 07/05/18 Yes I S O L A T I O N *CONTACT* Allergy Unknown 09/24/18 Yes ROS Review of System CONSTITUTIONAL: No fever or chills EYES: No recent changes SKIN: No rash or itching CARDIOVASCULAR: No chest pain, syncope, palpitations, or edema RESPIRATORY: No SOB or cough GASTROINTESTINAL: No nausea, vomiting or abdominal pain NEUROLOGICAL: No headaches or weakness ENDOCRINE: No cold or heat intolerance GENITOURINARY: No urgency or frequency of urination MUSCULOSKELETAL: No back pain or joint pain LYMPHATICS: No enlarged lymph nodes PSYCHIATRIC: No anxiety or depression Physical Exam Physical Exam GEN.: No apparent distress. Alert and oriented. HEENT: Head is normocephalic, atraumatic NECK: Supple. LUNGS: Clear to auscultation. HEART: RRR, S1, S2 present. Peripheral pulses intact ABDOMEN: Soft, nontender. Positive bowel sounds. EXTREMITIES: Without any cyanosis. NEUROLOGIC: Normal speech, normal tone PSYCHIATRIC: Normal affect, normal mood. SKIN: No ulcerations Vitals Vitals Vital Signs Date Time Temp Pulse Resp B/P (MAP) Pulse Ox O2 Delivery O2 Flow Rate FiO2 10/20/18 12:12 Room Air 10/20/18 11:00 97.8 83 18 113/66 (82) 99 97.8 Labs Labs Laboratory Tests Test 10/20/18 09:10 10/20/18 09:40 White Blood Count 5.9 x10^3/uL (4.0-11.0) Red Blood Count 3.45 x10^6/uL (3.50-5.40) Hemoglobin 10.4 g/dL (12.0-15.5) Hematocrit 31.9 % (36.0-47.0) Mean Corpuscular Volume 93 fL (79-100) Mean Corpuscular Hemoglobin 30 pg (25-35) Mean Corpuscular Hemoglobin Concent 33 g/dL (31-37) Red Cell Distribution Width 16.8 % (11.5-14.5) Platelet Count 228 x10^3/uL (140-400) Neutrophils (%) (Auto) 52 % (31-73) Lymphocytes (%) (Auto) 34 % (24-48) Monocytes (%) (Auto) 9 % (0-9) Eosinophils (%) (Auto) 5 % (0-3) Basophils (%) (Auto) 1 % (0-3) Neutrophils # (Auto) 3.0 x10^3uL (1.8-7.7) Lymphocytes # (Auto) 2.0 x10^3/uL (1.0-4.8) Monocytes # (Auto) 0.5 x10^3/uL (0.0-1.1) Eosinophils # (Auto) 0.3 x10^3/uL (0.0-0.7) Basophils # (Auto) 0.1 x10^3/uL (0.0-0.2) Prothrombin Time 13.2 SEC (11.7-14.0) Prothromb Time International Ratio 1.0 (0.8-1.1) Sodium Level 148 mmol/L (136-145) Potassium Level 3.6 mmol/L (3.5-5.1) Chloride Level 113 mmol/L (98-107) Carbon Dioxide Level 23 mmol/L (21-32) Anion Gap 12 (6-14) Blood Urea Nitrogen 11 mg/dL (7-20) Creatinine 0.7 mg/dL (0.6-1.0) Estimated GFR (Cockcroft-Gault) 84.2 BUN/Creatinine Ratio 16 (6-20) Glucose Level 91 mg/dL (70-99) Calcium Level 8.4 mg/dL (8.5-10.1) Magnesium Level 1.9 mg/dL (1.8-2.4) Total Bilirubin 0.5 mg/dL (0.2-1.0) Aspartate Amino Transf (AST/SGOT) 21 U/L (15-37) Alanine Aminotransferase (ALT/SGPT) 17 U/L (14-59) Alkaline Phosphatase 92 U/L (46-116) Ammonia 24 mcmol/L (11-34) Troponin I Quantitative < 0.017 ng/mL (0.000-0.055) BY-Xcu-D-Type Natriuretic Peptide 237 pg/mL (0-124) Total Protein 6.0 g/dL (6.4-8.2) Albumin 2.6 g/dL (3.4-5.0) Albumin/Globulin Ratio 0.8 (1.0-1.7) Ethyl Alcohol Level < 10 mg/dL (0-10) Urine Collection Type U cath Urine Color Yellow Urine Clarity Clear Urine pH 6.0 Urine Specific [place] 1.015 Urine Protein Negative mg/dL (NEG-TRACE) Urine Glucose (UA) Negative mg/dL (NEG) Urine Ketones (Stick) Negative mg/dL (NEG) Urine Blood Negative (NEG) Urine Nitrite Negative (NEG) Urine Bilirubin Negative (NEG) Urine Urobilinogen Dipstick 1.0 mg/dL (0.2 mg/dL) Urine Leukocyte Esterase Negative (NEG) Urine RBC Occ /HPF (0-2) Urine WBC 1-4 /HPF (0-4) Urine Squamous Epithelial Cells Few /LPF Urine Renal Epithelial Cells Occ /LPF Urine Bacteria Moderate /HPF (0-FEW) Urine Hyaline Casts Occasional /HPF Urine Mucus Marked /LPF Urine Opiates Screen Neg (NEG) Urine Methadone Screen Neg (NEG) Urine Barbiturates Neg (NEG) Urine Phencyclidine Screen Neg (NEG) Urine Amphetamine/Methamphetamine Neg (NEG) Urine Benzodiazepines Screen Pos (NEG) Urine Cocaine Screen Neg (NEG) Urine Cannabinoids Screen Pos (NEG) Urine Ethyl Alcohol Neg (NEG) Laboratory Tests Test 10/20/18 09:10 10/20/18 09:40 White Blood Count 5.9 x10^3/uL (4.0-11.0) Red Blood Count 3.45 x10^6/uL (3.50-5.40) Hemoglobin 10.4 g/dL (12.0-15.5) Hematocrit 31.9 % (36.0-47.0) Mean Corpuscular Volume 93 fL (79-100) Mean Corpuscular Hemoglobin 30 pg (25-35) Mean Corpuscular Hemoglobin Concent 33 g/dL (31-37) Red Cell Distribution Width 16.8 % (11.5-14.5) Platelet Count 228 x10^3/uL (140-400) Neutrophils (%) (Auto) 52 % (31-73) Lymphocytes (%) (Auto) 34 % (24-48) Monocytes (%) (Auto) 9 % (0-9) Eosinophils (%) (Auto) 5 % (0-3) Basophils (%) (Auto) 1 % (0-3) Neutrophils # (Auto) 3.0 x10^3uL (1.8-7.7) Lymphocytes # (Auto) 2.0 x10^3/uL (1.0-4.8) Monocytes # (Auto) 0.5 x10^3/uL (0.0-1.1) Eosinophils # (Auto) 0.3 x10^3/uL (0.0-0.7) Basophils # (Auto) 0.1 x10^3/uL (0.0-0.2) Prothrombin Time 13.2 SEC (11.7-14.0) Prothromb Time International Ratio 1.0 (0.8-1.1) Sodium Level 148 mmol/L (136-145) Potassium Level 3.6 mmol/L (3.5-5.1) Chloride Level 113 mmol/L (98-107) Carbon Dioxide Level 23 mmol/L (21-32) Anion Gap 12 (6-14) Blood Urea Nitrogen 11 mg/dL (7-20) Creatinine 0.7 mg/dL (0.6-1.0) Estimated GFR (Cockcroft-Gault) 84.2 BUN/Creatinine Ratio 16 (6-20) Glucose Level 91 mg/dL (70-99) Calcium Level 8.4 mg/dL (8.5-10.1) Magnesium Level 1.9 mg/dL (1.8-2.4) Total Bilirubin 0.5 mg/dL (0.2-1.0) Aspartate Amino Transf (AST/SGOT) 21 U/L (15-37) Alanine Aminotransferase (ALT/SGPT) 17 U/L (14-59) Alkaline Phosphatase 92 U/L (46-116) Ammonia 24 mcmol/L (11-34) Troponin I Quantitative < 0.017 ng/mL (0.000-0.055) MY-Lkv-N-Type Natriuretic Peptide 237 pg/mL (0-124) Total Protein 6.0 g/dL (6.4-8.2) Albumin 2.6 g/dL (3.4-5.0) Albumin/Globulin Ratio 0.8 (1.0-1.7) Ethyl Alcohol Level < 10 mg/dL (0-10) Urine Collection Type U cath Urine Color Yellow Urine Clarity Clear Urine pH 6.0 Urine Specific [place] 1.015 Urine Protein Negative mg/dL (NEG-TRACE) Urine Glucose (UA) Negative mg/dL (NEG) Urine Ketones (Stick) Negative mg/dL (NEG) Urine Blood Negative (NEG) Urine Nitrite Negative (NEG) Urine Bilirubin Negative (NEG) Urine Urobilinogen Dipstick 1.0 mg/dL (0.2 mg/dL) Urine Leukocyte Esterase Negative (NEG) Urine RBC Occ /HPF (0-2) Urine WBC 1-4 /HPF (0-4) Urine Squamous Epithelial Cells Few /LPF Urine Renal Epithelial Cells Occ /LPF Urine Bacteria Moderate /HPF (0-FEW) Urine Hyaline Casts Occasional /HPF Urine Mucus Marked /LPF Urine Opiates Screen Neg (NEG) Urine Methadone Screen Neg (NEG) Urine Barbiturates Neg (NEG) Urine Phencyclidine Screen Neg (NEG) Urine Amphetamine/Methamphetamine Neg (NEG) Urine Benzodiazepines Screen Pos (NEG) Urine Cocaine Screen Neg (NEG) Urine Cannabinoids Screen Pos (NEG) Urine Ethyl Alcohol Neg (NEG) VTE Prophylaxis Ordered VTE Prophylaxis Devices: No VTE Pharmacological Prophylaxi: Yes Assessment/Plan Assessment/Plan acute psychosis Sekou EPTE MD Oct 20, 2018 13:03
[2018-10-20] MEDS ORDERED: NON FORMULARY ITEM (Albuterol Sulfate (Ventolin Hfa Inhaler) 2 PUFF) INH PRN (13:15)
[2018-10-20] MEDS ORDERED: ALBUTEROL SULFATE 2.5 MG/3 ML NEBU. NEB PRN (13:15)
[2018-10-20] MEDS: diazePAM 5 MG TABLET PO SCH ×2 (13:28→21:09)
[2018-10-20] MEDS: GABAPENTIN 300 MG CAPSULE. PO SCH ×2 (13:29→21:10)
[2018-10-20 15:00] VITALS: BP 107/61
--- NOTE | 2018-10-20 15:43 | PDOC1 ---
History and Physical Date of Admission Date of Admission 10/20/18 Identification/Chief Complaint Chief Complaint She did not recognize her son this am and he sent her to ER for further eval Source Source: Chart review, Patient History of Present Illness History of Present Illness Schizophrenic lady with hospitalization a month ago for mental status change found then to be septic, son worried about same issue but ER work up unrevealing. She apparently has been started on Haldol by Psych in the interim Past Medical History Cardiovascular: HTN Psych: Anxiety, Bipolar, Depression Family History Family History: Hypertension Social History ALCOHOL: none Drugs: None Current Problem List Problem List Problems Medical Problems: (1) Altered mental status Status: Acute (2) Bipolar disorder Status: Acute Current Medications Current Medications Current Medications Medications (Trade) Dose Ordered Sig/Ashli Start Time Stop Time Status Last Admin Dose Admin Acetaminophen (Tylenol) 650 mg PRN Q4HRS PRN 10/20/18 10:30 10/21/18 10:29 Albuterol Sulfate (Ventolin Neb Soln) 2.5 mg PRN Q4HRS PRN 10/20/18 13:15 Amitriptyline HCl (Elavil) 25 mg QHS 10/20/18 21:00 Desvenlafaxine Succinate (Pristiq Er) 50 mg DAILY 10/21/18 09:00 Diazepam (Valium) 5 mg TID 10/20/18 14:00 10/20/18 13:28 5 MG Gabapentin (Neurontin) 300 mg TID 10/20/18 14:00 10/20/18 13:29 300 MG Non-Formulary Medication (Albuterol Sulfate (Ventolin Hfa Inhaler)) 2 puff Q4HRS PRN 10/20/18 13:15 UNV Nystatin (Nystop) 1 eulalia BID 10/20/18 21:00 Ondansetron HCl (Zofran) 4 mg PRN Q8HRS PRN 10/20/18 10:30 10/21/18 10:29 Allergies Allergies Allergies Coded Allergies Type Severity Reaction Last Updated Verified morphine Allergy Severe swelling 07/01/18 Yes aspirin Allergy Intermediate 07/05/18 Yes oxycodone Allergy Intermediate 07/05/18 Yes I S O L A T I O N *CONTACT* Allergy Unknown 09/24/18 Yes ROS Review of System CONSTITUTIONAL: No fever or chills EYES: No recent changes SKIN: + for itching CARDIOVASCULAR: No chest pain, syncope, palpitations, or edema RESPIRATORY: No SOB or cough GASTROINTESTINAL: No nausea, vomiting or abdominal pain, she states she has been having diarrhea NEUROLOGICAL: No headaches or weakness ENDOCRINE: No cold or heat intolerance GENITOURINARY: No urgency or frequency of urination MUSCULOSKELETAL: No back pain or joint pain LYMPHATICS: No enlarged lymph nodes PSYCHIATRIC: + confusion Physical Exam Physical Exam GEN.: No apparent distress. Alert but confused. HEENT: Head is normocephalic, atraumatic, dentition is limited NECK: Supple. LUNGS: Clear to auscultation. HEART: RRR, S1, S2 present. Peripheral pulses intact ABDOMEN: Soft, nontender. Positive bowel sounds. EXTREMITIES: Without any cyanosis. NEUROLOGIC: Normal speech, normal tone PSYCHIATRIC: Normal affect, normal mood. SKIN: No ulcerations or scratches, no jaundice Vitals Vitals Vital Signs Date Time Temp Pulse Resp B/P (MAP) Pulse Ox O2 Delivery O2 Flow Rate FiO2 10/20/18 12:12 Room Air 10/20/18 11:00 97.8 83 18 113/66 (82) 99 97.8 Labs Labs Laboratory Tests Test 10/20/18 09:10 10/20/18 09:40 White Blood Count 5.9 x10^3/uL (4.0-11.0) Red Blood Count 3.45 x10^6/uL (3.50-5.40) Hemoglobin 10.4 g/dL (12.0-15.5) Hematocrit 31.9 % (36.0-47.0) Mean Corpuscular Volume 93 fL (79-100) Mean Corpuscular Hemoglobin 30 pg (25-35) Mean Corpuscular Hemoglobin Concent 33 g/dL (31-37) Red Cell Distribution Width 16.8 % (11.5-14.5) Platelet Count 228 x10^3/uL (140-400) Neutrophils (%) (Auto) 52 % (31-73) Lymphocytes (%) (Auto) 34 % (24-48) Monocytes (%) (Auto) 9 % (0-9) Eosinophils (%) (Auto) 5 % (0-3) Basophils (%) (Auto) 1 % (0-3) Neutrophils # (Auto) 3.0 x10^3uL (1.8-7.7) Lymphocytes # (Auto) 2.0 x10^3/uL (1.0-4.8) Monocytes # (Auto) 0.5 x10^3/uL (0.0-1.1) Eosinophils # (Auto) 0.3 x10^3/uL (0.0-0.7) Basophils # (Auto) 0.1 x10^3/uL (0.0-0.2) Prothrombin Time 13.2 SEC (11.7-14.0) Prothromb Time International Ratio 1.0 (0.8-1.1) Sodium Level 148 mmol/L (136-145) Potassium Level 3.6 mmol/L (3.5-5.1) Chloride Level 113 mmol/L (98-107) Carbon Dioxide Level 23 mmol/L (21-32) Anion Gap 12 (6-14) Blood Urea Nitrogen 11 mg/dL (7-20) Creatinine 0.7 mg/dL (0.6-1.0) Estimated GFR (Cockcroft-Gault) 84.2 BUN/Creatinine Ratio 16 (6-20) Glucose Level 91 mg/dL (70-99) Calcium Level 8.4 mg/dL (8.5-10.1) Magnesium Level 1.9 mg/dL (1.8-2.4) Total Bilirubin 0.5 mg/dL (0.2-1.0) Aspartate Amino Transf (AST/SGOT) 21 U/L (15-37) Alanine Aminotransferase (ALT/SGPT) 17 U/L (14-59) Alkaline Phosphatase 92 U/L (46-116) Ammonia 24 mcmol/L (11-34) Troponin I Quantitative < 0.017 ng/mL (0.000-0.055) JY-Oew-O-Type Natriuretic Peptide 237 pg/mL (0-124) Total Protein 6.0 g/dL (6.4-8.2) Albumin 2.6 g/dL (3.4-5.0) Albumin/Globulin Ratio 0.8 (1.0-1.7) Ethyl Alcohol Level < 10 mg/dL (0-10) Urine Collection Type U cath Urine Color Yellow Urine Clarity Clear Urine pH 6.0 Urine Specific [place] 1.015 Urine Protein Negative mg/dL (NEG-TRACE) Urine Glucose (UA) Negative mg/dL (NEG) Urine Ketones (Stick) Negative mg/dL (NEG) Urine Blood Negative (NEG) Urine Nitrite Negative (NEG) Urine Bilirubin Negative (NEG) Urine Urobilinogen Dipstick 1.0 mg/dL (0.2 mg/dL) Urine Leukocyte Esterase Negative (NEG) Urine RBC Occ /HPF (0-2) Urine WBC 1-4 /HPF (0-4) Urine Squamous Epithelial Cells Few /LPF Urine Renal Epithelial Cells Occ /LPF Urine Bacteria Moderate /HPF (0-FEW) Urine Hyaline Casts Occasional /HPF Urine Mucus Marked /LPF Urine Opiates Screen Neg (NEG) Urine Methadone Screen Neg (NEG) Urine Barbiturates Neg (NEG) Urine Phencyclidine Screen Neg (NEG) Urine Amphetamine/Methamphetamine Neg (NEG) Urine Benzodiazepines Screen Pos (NEG) Urine Cocaine Screen Neg (NEG) Urine Cannabinoids Screen Pos (NEG) Urine Ethyl Alcohol Neg (NEG) Laboratory Tests Test 10/20/18 09:10 10/20/18 09:40 White Blood Count 5.9 x10^3/uL (4.0-11.0) Red Blood Count 3.45 x10^6/uL (3.50-5.40) Hemoglobin 10.4 g/dL (12.0-15.5) Hematocrit 31.9 % (36.0-47.0) Mean Corpuscular Volume 93 fL (79-100) Mean Corpuscular Hemoglobin 30 pg (25-35) Mean Corpuscular Hemoglobin Concent 33 g/dL (31-37) Red Cell Distribution Width 16.8 % (11.5-14.5) Platelet Count 228 x10^3/uL (140-400) Neutrophils (%) (Auto) 52 % (31-73) Lymphocytes (%) (Auto) 34 % (24-48) Monocytes (%) (Auto) 9 % (0-9) Eosinophils (%) (Auto) 5 % (0-3) Basophils (%) (Auto) 1 % (0-3) Neutrophils # (Auto) 3.0 x10^3uL (1.8-7.7) Lymphocytes # (Auto) 2.0 x10^3/uL (1.0-4.8) Monocytes # (Auto) 0.5 x10^3/uL (0.0-1.1) Eosinophils # (Auto) 0.3 x10^3/uL (0.0-0.7) Basophils # (Auto) 0.1 x10^3/uL (0.0-0.2) Prothrombin Time 13.2 SEC (11.7-14.0) Prothromb Time International Ratio 1.0 (0.8-1.1) Sodium Level 148 mmol/L (136-145) Potassium Level 3.6 mmol/L (3.5-5.1) Chloride Level 113 mmol/L (98-107) Carbon Dioxide Level 23 mmol/L (21-32) Anion Gap 12 (6-14) Blood Urea Nitrogen 11 mg/dL (7-20) Creatinine 0.7 mg/dL (0.6-1.0) Estimated GFR (Cockcroft-Gault) 84.2 BUN/Creatinine Ratio 16 (6-20) Glucose Level 91 mg/dL (70-99) Calcium Level 8.4 mg/dL (8.5-10.1) Magnesium Level 1.9 mg/dL (1.8-2.4) Total Bilirubin 0.5 mg/dL (0.2-1.0) Aspartate Amino Transf (AST/SGOT) 21 U/L (15-37) Alanine Aminotransferase (ALT/SGPT) 17 U/L (14-59) Alkaline Phosphatase 92 U/L (46-116) Ammonia 24 mcmol/L (11-34) Troponin I Quantitative < 0.017 ng/mL (0.000-0.055) BM-Emc-B-Type Natriuretic Peptide 237 pg/mL (0-124) Total Protein 6.0 g/dL (6.4-8.2) Albumin 2.6 g/dL (3.4-5.0) Albumin/Globulin Ratio 0.8 (1.0-1.7) Ethyl Alcohol Level < 10 mg/dL (0-10) Urine Collection Type U cath Urine Color Yellow Urine Clarity Clear Urine pH 6.0 Urine Specific [place] 1.015 Urine Protein Negative mg/dL (NEG-TRACE) Urine Glucose (UA) Negative mg/dL (NEG) Urine Ketones (Stick) Negative mg/dL (NEG) Urine Blood Negative (NEG) Urine Nitrite Negative (NEG) Urine Bilirubin Negative (NEG) Urine Urobilinogen Dipstick 1.0 mg/dL (0.2 mg/dL) Urine Leukocyte Esterase Negative (NEG) Urine RBC Occ /HPF (0-2) Urine WBC 1-4 /HPF (0-4) Urine Squamous Epithelial Cells Few /LPF Urine Renal Epithelial Cells Occ /LPF Urine Bacteria Moderate /HPF (0-FEW) Urine Hyaline Casts Occasional /HPF Urine Mucus Marked /LPF Urine Opiates Screen Neg (NEG) Urine Methadone Screen Neg (NEG) Urine Barbiturates Neg (NEG) Urine Phencyclidine Screen Neg (NEG) Urine Amphetamine/Methamphetamine Neg (NEG) Urine Benzodiazepines Screen Pos (NEG) Urine Cocaine Screen Neg (NEG) Urine Cannabinoids Screen Pos (NEG) Urine Ethyl Alcohol Neg (NEG) VTE Prophylaxis Ordered VTE Prophylaxis Devices: No VTE Pharmacological Prophylaxi: Yes Assessment/Plan Assessment/Plan confusion - will hold Haldol - she has outpatient appt with Dr. Alejandra 10/23 to eval for dementia Hypernatremia - increase water anemia - check B12, iron panel Sekou PETE MD Oct 20, 2018 15:43
--- NOTE | 2018-10-20 16:21 | NUR ---
patient continuously removes tele monitor. has been running SR. Monitor removed. Physician informed.
[2018-10-20 19:59] VITALS: BP 111/69
[2018-10-20] MEDS: ACETAMINOPHEN 325 MG TABLET. PO PRN (21:09)
[2018-10-20] MEDS: AMITRIPTYLINE HCL 25 MG TABLET. PO SCH (21:09)
[2018-10-20] MEDS: NYSTATIN TOPICAL POWDER 15GM BOTTLE. TP SCH (21:10)
[2018-10-21 00:20] VITALS: BP 95/52
[2018-10-21 03:58] VITALS: BP 96/50
[2018-10-21 04:47] LABS: BASO % 1 % (0-3); EOS # 0.2 x10^3/uL (0.0-0.7); EOS % 6 % (0-3); HEMATOCRIT 28.8 % (36.0-47.0); HEMOGLOBIN 9.4 g/dL (12.0-15.5); LYMPH # 1.4 x10^3/uL (1.0-4.8); LYMPH % 36 % (24-48); MEAN CORPUSCULAR HEMOGLOBIN 30 pg (25-35); MEAN CORPUSCULAR HGB CONC 33 g/dL (31-37); MEAN CORPUSCULAR VOLUME 93 fL (79-100); MONO # 0.4 x10^3/uL (0.0-1.1); MONO % 9 % (0-9); NEUT # 1.8 x10^3uL (1.8-7.7); NEUT % 48 % (31-73); PLATELET COUNT 189 x10^3/uL (140-400); RED BLOOD COUNT 3.11 x10^6/uL (3.50-5.40); RED CELL DISTRIBUTION WIDTH 16.5 % (11.5-14.5); WHITE BLOOD COUNT 3.9 x10^3/uL (4.0-11.0)
[2018-10-21 05:35] LABS: ALBUMIN 2.2 g/dL (3.4-5.0); ALBUMIN/GLOBULIN RATIO 0.7 (1.0-1.7); CALCIUM 8.3 mg/dL (8.5-10.1); CREATININE 0.7 mg/dL (0.6-1.0); GFR 84.2; POTASSIUM 3.3 mmol/L (3.5-5.1); TOTAL BILIRUBIN 0.4 mg/dL (0.2-1.0); TOTAL PROTEIN 5.4 g/dL (6.4-8.2)
[2018-10-21 07:00] VITALS: BP 107/39
[2018-10-21] MEDS: ACETAMINOPHEN 325 MG TABLET. PO PRN (08:42)
[2018-10-21] MEDS: GABAPENTIN 300 MG CAPSULE. PO SCH ×3 (08:55→20:10)
[2018-10-21] MEDS: DESVENLAFAXINE 25 MG TAB.ER.24H PO SCH (08:55)
[2018-10-21] MEDS: NYSTATIN TOPICAL POWDER 15GM BOTTLE. TP SCH ×2 (08:55→20:10)
[2018-10-21] MEDS: diazePAM 5 MG TABLET PO SCH ×3 (08:55→20:10)
[2018-10-21] MEDS ORDERED: cefTRIAXone IV Push 1 GM VIAL. IVP ONE (10:15)
--- NOTE | 2018-10-21 10:24 | PDOC ---
PROGRESS NOTES Subjective She is alert today and constantly using her call button, having urinary frequency. She wants to go home. She says she is allergic to Haldol which she came in on. She has a consultation with Dr. Alejandra set up for 10/23 as OP Objective Afebrile General: alert, up to commode with minimal assist Heart: RRR Lungs: CTA Abd: soft and non tender Ext: no edema Vital Signs Vital Signs Date Time Temp Pulse Resp B/P (MAP) Pulse Ox O2 Delivery O2 Flow Rate FiO2 10/21/18 07:00 98.5 82 18 107/39 (61) 99 Room Air 98.5 I & O Intake and Output 10/21/18 07:00 Intake Total 280 ml Output Total 200 ml Balance 80 ml Intake Oral 280 ml Output Urine Total 200 ml # Voids 5 Assessment and Plan confusion - probable UTI - awaiting culture - Rocephin x 1 start augmentin, will hold Haldol as she claims allergy to it- she has outpatient appt with Dr. Alejandra 10/23 to [facility] Hypernatremia, hypokalemia - increase water, Klor-con x 1 dose anemia - awaiting B12, iron panel noted (saturation low) protein malnutrition - moderate - limited dentition so needs protein supplements Sekou PETE MD Oct 21, 2018 10:23
[2018-10-21] MEDS ORDERED: POTASSIUM CHLORIDE 10 MEQ TABLET.ER. PO ONE (10:30)
[2018-10-21] MEDS ORDERED: ALPRAZolam 0.5 MG TABLET PO PRN (10:45)
[2018-10-21 11:00] VITALS: BP 122/48
[2018-10-21] MEDS: rOPINIRole 0.25 MG TABLET. PO SCH ×2 (11:13→20:10)
[2018-10-21] MEDS ORDERED: ZOLPIDEM 5 MG TABLET. PO PRN (16:30)
[2018-10-21] MEDS ORDERED: ALPRAZolam 1 MG TABLET PO PRN (16:30)
[2018-10-21 19:02] VITALS: BP 112/52
[2018-10-21] MEDS: AMOXICILLIN/K CLAV 875/125MG TABLET. PO SCH (20:10)
[2018-10-21] MEDS: AMITRIPTYLINE HCL 25 MG TABLET. PO SCH (20:10)
[2018-10-21 22:53] VITALS: BP 99/58
[2018-10-22 03:58] LABS: BASO # 0.1 x10^3/uL (0.0-0.2); BASO % 1 % (0-3); EOS # 0.2 x10^3/uL (0.0-0.7); EOS % 5 % (0-3); HEMOGLOBIN 9.8 g/dL (12.0-15.5); LYMPH # 1.7 x10^3/uL (1.0-4.8); LYMPH % 35 % (24-48); MEAN CORPUSCULAR HEMOGLOBIN 30 pg (25-35); MEAN CORPUSCULAR HGB CONC 33 g/dL (31-37); MEAN CORPUSCULAR VOLUME 92 fL (79-100); MONO # 0.4 x10^3/uL (0.0-1.1); MONO % 9 % (0-9); NEUT # 2.4 x10^3uL (1.8-7.7); NEUT % 51 % (31-73); PLATELET COUNT 188 x10^3/uL (140-400); RED BLOOD COUNT 3.25 x10^6/uL (3.50-5.40); RED CELL DISTRIBUTION WIDTH 16.3 % (11.5-14.5); WHITE BLOOD COUNT 4.8 x10^3/uL (4.0-11.0)
[2018-10-22 04:13] LABS: CALCIUM 8.2 mg/dL (8.5-10.1); CREATININE 0.7 mg/dL (0.6-1.0); GFR 84.2
[2018-10-22 07:18] VITALS: BP 117/50
[2018-10-22] MEDS: rOPINIRole 0.25 MG TABLET. PO SCH (08:28)
[2018-10-22] MEDS: diazePAM 5 MG TABLET PO SCH ×2 (08:28→13:36)
[2018-10-22] MEDS: AMOXICILLIN/K CLAV 875/125MG TABLET. PO SCH (08:28)
[2018-10-22] MEDS: GABAPENTIN 300 MG CAPSULE. PO SCH ×2 (08:28→13:36)
[2018-10-22] MEDS: NYSTATIN TOPICAL POWDER 15GM BOTTLE. TP SCH (08:29)
[2018-10-22] MEDS: DESVENLAFAXINE 25 MG TAB.ER.24H PO SCH (08:29)
--- NOTE | 2018-10-22 09:13 | PDOC ---
PROGRESS NOTES Subjective Subjective Patient feels better, agreeable to returning home today. States she needs scrips for Pristiq and Valium. Objective Objective Vital Signs Date Time Temp Pulse Resp B/P (MAP) Pulse Ox O2 Delivery O2 Flow Rate FiO2 10/22/18 07:18 98.6 63 18 117/50 (72) 97 Room Air 98.6 Intake and Output 10/22/18 07:00 Intake Total 1870 ml Balance 1870 ml Intake Oral 1870 ml # Voids 13 Physical Exam Abdomen: Normal bowel sounds, Soft, No tenderness Heart: Regular rate Extremities: No edema General: Alert, Oriented X3, No acute distress Lungs: Clear to auscultation Assessment Assessment Problems Medical Problems: (1) Altered mental status Status: Acute (2) Bipolar disorder Status: Acute Plan Plan of Care 1. Metabolic encephalopathy - resolved, appears at baseline mental status and much improved from last hospitalization. Home today. 2. schizophrenia - patient feels she does well on the Pristiq and Valium. Strongly advised follow up at [facility] for ongoing care. Scrips written. Only 2 weeks of Valium given. 3. possible UTI - culture pending, will discharge on Keflex. 4. anemia, s/p lower GI bleed - no evidence of recurrence of bleeding and Hgb better than at discharge, continue po Fe daily. Comment Review of Relevant I have reviewed the following items michelle (where applicable) has been applied. Labs Laboratory Tests Test 10/20/18 09:10 10/20/18 09:40 10/21/18 03:30 10/22/18 03:30 White Blood Count 5.9 x10^3/uL (4.0-11.0) 3.9 x10^3/uL (4.0-11.0) 4.8 x10^3/uL (4.0-11.0) Red Blood Count 3.45 x10^6/uL (3.50-5.40) 3.11 x10^6/uL (3.50-5.40) 3.25 x10^6/uL (3.50-5.40) Hemoglobin 10.4 g/dL (12.0-15.5) 9.4 g/dL (12.0-15.5) 9.8 g/dL (12.0-15.5) Hematocrit 31.9 % (36.0-47.0) 28.8 % (36.0-47.0) 30.0 % (36.0-47.0) Mean Corpuscular Volume 93 fL (79-100) 93 fL (79-100) 92 fL (79-100) Mean Corpuscular Hemoglobin 30 pg (25-35) 30 pg (25-35) 30 pg (25-35) Mean Corpuscular Hemoglobin Concent 33 g/dL (31-37) 33 g/dL (31-37) 33 g/dL (31-37) Red Cell Distribution Width 16.8 % (11.5-14.5) 16.5 % (11.5-14.5) 16.3 % (11.5-14.5) Platelet Count 228 x10^3/uL (140-400) 189 x10^3/uL (140-400) 188 x10^3/uL (140-400) Neutrophils (%) (Auto) 52 % (31-73) 48 % (31-73) 51 % (31-73) Lymphocytes (%) (Auto) 34 % (24-48) 36 % (24-48) 35 % (24-48) Monocytes (%) (Auto) 9 % (0-9) 9 % (0-9) 9 % (0-9) Eosinophils (%) (Auto) 5 % (0-3) 6 % (0-3) 5 % (0-3) Basophils (%) (Auto) 1 % (0-3) 1 % (0-3) 1 % (0-3) Neutrophils # (Auto) 3.0 x10^3uL (1.8-7.7) 1.8 x10^3uL (1.8-7.7) 2.4 x10^3uL (1.8-7.7) Lymphocytes # (Auto) 2.0 x10^3/uL (1.0-4.8) 1.4 x10^3/uL (1.0-4.8) 1.7 x10^3/uL (1.0-4.8) Monocytes # (Auto) 0.5 x10^3/uL (0.0-1.1) 0.4 x10^3/uL (0.0-1.1) 0.4 x10^3/uL (0.0-1.1) Eosinophils # (Auto) 0.3 x10^3/uL (0.0-0.7) 0.2 x10^3/uL (0.0-0.7) 0.2 x10^3/uL (0.0-0.7) Basophils # (Auto) 0.1 x10^3/uL (0.0-0.2) 0.0 x10^3/uL (0.0-0.2) 0.1 x10^3/uL (0.0-0.2) Prothrombin Time 13.2 SEC (11.7-14.0) Prothromb Time International Ratio 1.0 (0.8-1.1) Sodium Level 148 mmol/L (136-145) 148 mmol/L (136-145) 147 mmol/L (136-145) Potassium Level 3.6 mmol/L (3.5-5.1) 3.3 mmol/L (3.5-5.1) 4.0 mmol/L (3.5-5.1) Chloride Level 113 mmol/L (98-107) 114 mmol/L (98-107) 113 mmol/L (98-107) Carbon Dioxide Level 23 mmol/L (21-32) 22 mmol/L (21-32) 23 mmol/L (21-32) Anion Gap 12 (6-14) 12 (6-14) 11 (6-14) Blood Urea Nitrogen 11 mg/dL (7-20) 10 mg/dL (7-20) 9 mg/dL (7-20) Creatinine 0.7 mg/dL (0.6-1.0) 0.7 mg/dL (0.6-1.0) 0.7 mg/dL (0.6-1.0) Estimated GFR (Cockcroft-Gault) 84.2 84.2 84.2 BUN/Creatinine Ratio 16 (6-20) 14 (6-20) Glucose Level 91 mg/dL (70-99) 83 mg/dL (70-99) 88 mg/dL (70-99) Calcium Level 8.4 mg/dL (8.5-10.1) 8.3 mg/dL (8.5-10.1) 8.2 mg/dL (8.5-10.1) Magnesium Level 1.9 mg/dL (1.8-2.4) Iron Level 81 ug/dL (50-170) Total Iron Binding Capacity 219 ug/dL (250-450) Iron Saturation 37 % (15-34) Total Bilirubin 0.5 mg/dL (0.2-1.0) 0.4 mg/dL (0.2-1.0) Aspartate Amino Transf (AST/SGOT) 21 U/L (15-37) 17 U/L (15-37) Alanine Aminotransferase (ALT/SGPT) 17 U/L (14-59) 16 U/L (14-59) Alkaline Phosphatase 92 U/L (46-116) 76 U/L (46-116) Ammonia 24 mcmol/L (11-34) Troponin I Quantitative < 0.017 ng/mL (0.000-0.055) JJ-Usd-Z-Type Natriuretic Peptide 237 pg/mL (0-124) Total Protein 6.0 g/dL (6.4-8.2) 5.4 g/dL (6.4-8.2) Albumin 2.6 g/dL (3.4-5.0) 2.2 g/dL (3.4-5.0) Albumin/Globulin Ratio 0.8 (1.0-1.7) 0.7 (1.0-1.7) Vitamin B12 Level 312 pg/mL (247-911) Ethyl Alcohol Level < 10 mg/dL (0-10) Urine Collection Type U cath Urine Color Yellow Urine Clarity Clear Urine pH 6.0 Urine Specific [place] 1.015 Urine Protein Negative mg/dL (NEG-TRACE) Urine Glucose (UA) Negative mg/dL (NEG) Urine Ketones (Stick) Negative mg/dL (NEG) Urine Blood Negative (NEG) Urine Nitrite Negative (NEG) Urine Bilirubin Negative (NEG) Urine Urobilinogen Dipstick 1.0 mg/dL (0.2 mg/dL) Urine Leukocyte Esterase Negative (NEG) Urine RBC Occ /HPF (0-2) Urine WBC 1-4 /HPF (0-4) Urine Squamous Epithelial Cells Few /LPF Urine Renal Epithelial Cells Occ /LPF Urine Bacteria Moderate /HPF (0-FEW) Urine Hyaline Casts Occasional /HPF Urine Mucus Marked /LPF Urine Opiates Screen Neg (NEG) Urine Methadone Screen Neg (NEG) Urine Barbiturates Neg (NEG) Urine Phencyclidine Screen Neg (NEG) Urine Amphetamine/Methamphetamine Neg (NEG) Urine Benzodiazepines Screen Pos (NEG) Urine Cocaine Screen Neg (NEG) Urine Cannabinoids Screen Pos (NEG) Urine Ethyl Alcohol Neg (NEG) Laboratory Tests Test 10/22/18 03:30 White Blood Count 4.8 x10^3/uL (4.0-11.0) Red Blood Count 3.25 x10^6/uL (3.50-5.40) Hemoglobin 9.8 g/dL (12.0-15.5) Hematocrit 30.0 % (36.0-47.0) Mean Corpuscular Volume 92 fL (79-100) Mean Corpuscular Hemoglobin 30 pg (25-35) Mean Corpuscular Hemoglobin Concent 33 g/dL (31-37) Red Cell Distribution Width 16.3 % (11.5-14.5) Platelet Count 188 x10^3/uL (140-400) Neutrophils (%) (Auto) 51 % (31-73) Lymphocytes (%) (Auto) 35 % (24-48) Monocytes (%) (Auto) 9 % (0-9) Eosinophils (%) (Auto) 5 % (0-3) Basophils (%) (Auto) 1 % (0-3) Neutrophils # (Auto) 2.4 x10^3uL (1.8-7.7) Lymphocytes # (Auto) 1.7 x10^3/uL (1.0-4.8) Monocytes # (Auto) 0.4 x10^3/uL (0.0-1.1) Eosinophils # (Auto) 0.2 x10^3/uL (0.0-0.7) Basophils # (Auto) 0.1 x10^3/uL (0.0-0.2) Sodium Level 147 mmol/L (136-145) Potassium Level 4.0 mmol/L (3.5-5.1) Chloride Level 113 mmol/L (98-107) Carbon Dioxide Level 23 mmol/L (21-32) Anion Gap 11 (6-14) Blood Urea Nitrogen 9 mg/dL (7-20) Creatinine 0.7 mg/dL (0.6-1.0) Estimated GFR (Cockcroft-Gault) 84.2 Glucose Level 88 mg/dL (70-99) Calcium Level 8.2 mg/dL (8.5-10.1) Medications Current Medications Ondansetron HCl (Zofran) 4 mg PRN Q8HRS PRN IV NAUSEA/VOMITING; Start 10/20/18 at 10:30; Stop 10/21/18 at 10:29; Status DC Acetaminophen (Tylenol) 650 mg PRN Q4HRS PRN PO FEVER Last administered on 10/21 08:42; Start 10/20/18 at 10:30; Stop 10/21/18 at 10:29; Status DC Amitriptyline HCl (Elavil) 25 mg QHS PO Last administered on 10/21/18 20:10; Start 10/20/18 at 21:00 Diazepam (Valium) 5 mg TID PO Last administered on 10/22/18 08:28; Start 10/20 at 14:00 Gabapentin (Neurontin) 300 mg TID PO Last administered on 10/22/18 08:28; Start 10/20/18 at 14:00 Non-Formulary Medication (Albuterol Sulfate (Ventolin Hfa Inhaler)) 2 puff Q4HRS PRN INH shortness of breath; Start 10/20/18 at 13:15; Status UNV Desvenlafaxine Succinate (Pristiq Er) 50 mg DAILY PO Last administered on 08:29; Start 10/21/18 at 09:00 Albuterol Sulfate (Ventolin Neb Soln) 2.5 mg PRN Q4HRS PRN NEB SHORTNESS OF BREATH; Start 10/20/18 at 13:15 Nystatin (Nystop) 1 eulalia BID TP Last administered on 10/22/18 08:29; Start at 21:00 Ceftriaxone Sodium (Rocephin) 1 gm 1X ONCE IVP Last administered on 10/21/18 11:14; Start 10/21/18 at 10:15; Stop 10/21/18 at 10:20; Status DC Amoxicillin/ Clavulanate Potassium (Augmentin 875/ 125mg) 1 tab BID PO Last administered on 10/22/18 08:28; Start 10/21/18 at 21:00 Potassium Chloride (Klor-Con) 10 meq 1X ONCE PO Last administered on at 11:13; Start 10/21/18 at 10:30; Stop 10/21/18 at 10:38; Status DC Alprazolam (Xanax) 0.5 mg PRN Q8HRS PRN PO ANXIETY / AGITATION Last administered on 10/21/18at 11:13; Start 10/21/18 at 10:45; Stop 10/21/18 at 16:33 ; Status DC Ropinirole HCl (Requip) 0.25 mg BID PO Last administered on 10/22/18at 08:28; Start 10/21/18 at 11:00 Alprazolam (Xanax) 1 mg PRN QID PRN PO ANXIETY / AGITATION Last administered on 10/21/18at 16:59; Start 10/21/18 at 16:30 Zolpidem Tartrate (Ambien) 5 mg PRN QHS PRN PO INSOMNIA; Start 10/21/18 at 16: 30 Active Scripts Active Haloperidol 5 Mg Tablet 10 Mg PO BID 30 Days Reported [iron] 325 Mg PO Ventolin Hfa Inhaler (Albuterol Sulfate) 18 Gm Hfa.aer.ad 2 Puff INH Q4HRS PRN Pristiq Er (Desvenlafaxine Succinate) 50 Mg Tab.er.24h 1 Tab PO DAILY Amitriptyline Hcl 25 Mg Tablet 1 Tab PO QHS Diazepam 5 Mg Tablet 5 Mg PO TID Gabapentin (Gabapentin) 300 Mg Capsule 300 Mg PO TID Vitals/I & O Vital Sign - Last 24 Hours 10/21/18 10/21/18 10/21/18 10/21/18 11:00 19:02 20:00 22:53 Temp 98.0 98.4 98.0 98.0 98.4 98.0 Pulse 81 74 82 Resp 18 18 18 B/P (MAP) 122/48 (72) 112/52 (72) 99/58 (72) Pulse Ox 90 96 98 O2 Delivery Room Air Room Air Room Air Room Air 10/22/18 07:18 Temp 98.6 98.6 Pulse 63 Resp 18 B/P (MAP) 117/50 (72) Pulse Ox 97 O2 Delivery Room Air Intake and Output 10/21/18 10/21/18 10/22/18 15:00 23:00 07:00 Intake Total 1060 ml 340 ml 470 ml Balance 1060 ml 340 ml 470 ml MILY COOK MD Oct 22, 2018 09:13
[2018-10-22] MEDS ORDERED: CEPH-264 PO (09:17)
--- NOTE | 2018-10-22 09:42 | DS ---
DATE OF DISCHARGE: 10/22/2018 CHIEF COMPLAINT: Altered mental status. HISTORY OF PRESENT ILLNESS: The patient is a 63-year-old female who was just recently discharged from [facility] after a long hospital stay. She had returned home with her family. On the day of admission, her son apparently found her to be confused and not seeming like herself. EMS was called and she was brought to the Emergency Room. Initial evaluation there included a urine drug screen, which was positive for benzodiazepines, which the patient is prescribed and cannabis. Alcohol level was negative. The rest of the evaluation was unremarkable and the patient was admitted for further care. HOSPITAL COURSE: The patient was admitted and started on Rocephin for treatment of a possible urinary tract infection as there were 1-4 wbc's in her urine. She was continued on her usual psychiatric medications as she does have a long history of schizophrenia and bipolar mood disorder. The patient's mental status has improved and she appears at her baseline now, which is actually much improved from how she was at discharge earlier this month. The patient states clearly that Pristiq and Valium are the medications that worked best for her and so these will be continued. She is strongly advised to follow up at [facility] as soon as possible for ongoing psychiatric care. She also states that she is to see Dr. Alejandra for evaluation of possible memory loss. The patient had a lower GI bleed at the beginning of her last hospital stay and required a transfusion due to this. Her hemoglobin at admission now was 9.8, which has improved from her level of 9.2 at her last discharge. She is advised to continue iron daily. The patient states she feels fine and so she will be discharged to home today. ADDENDUM: Urine culture report available after discharge showed growth of Klebsiella, which was hill-sensitive. FINAL DIAGNOSES: 1. Metabolic encephalopathy. 2. Schizophrenia with bipolar mood disorder. 3. Urinary tract infection. 4. Anemia, status post lower gastrointestinal bleed. 5. Marijuana use. DISCHARGE MEDICATIONS: Keflex 500 mg 2 p.o. b.i.d. x 5 days, albuterol inhaler p.r.n., amitriptyline 25 mg at bedtime, Pristiq ER 50 mg daily, diazepam 5 mg t.i.d., gabapentin 300 mg t.i.d., iron 325 mg daily. The patient is given a prescription for a month of Pristiq and 2 weeks of Valium and advised to follow up at [facility] for further psychiatric medication. DISPOSITION: The patient will be discharged to home today. FOLLOWUP: Followup is with Dr. Seay in 2 weeks. MILY SEAY MD DR: SEGUN/nanette JOB#: [id number] / [id number] JOSE RAUL
--- NOTE | 2018-10-22 10:19 | NUR ---
IP: Pt has a hx of + mrsa screen on 09/23/18. Pt to be in contact precautions until there are 2 negative screens 7 days apart.
[2018-10-22 11:00] VITALS: BP 127/52
--- NOTE | 2018-10-22 12:23 | CONS ---
DATE OF CONSULTATION: 10/22/2018 REFERRING PHYSICIAN: Dr. Plascencia. REASON FOR CONSULTATION: Altered mental status. HISTORY OF PRESENT ILLNESS: A 63-year-old female with a history of schizophrenia, recent discharge from [facility], was brought into the ER on 10/20/2018 with altered mental status. Per EMS, her son found her not recognizing him. The patient did admit drink along with smoking marijuana the night previous to admission. She underwent a chest x-ray, which showed no acute radiographic abnormality. CT head showed no acute intracranial abnormality. There was again mild supratentorial atrophy, mild ill-defined low density of the supratentorial parenchyma was nonspecific and may be due to chronic microvascular ischemic disease. The patient remained afebrile. White count was 3.9, today is 4.8. Toxic screen was positive for benzodiazepine and cannabinoids. The patient had been recently discharged from [facility] and was transferred to [place]. This morning, the patient is alert, oriented to self, answers a few questions, more alert than last admission. She denies any fevers, chills, nausea, vomiting, headache, sore throat, difficulty swallowing. Does say that she has bad teeth. She wants to be discharged home today. 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 CURRENT MEDICATIONS: Acetaminophen, albuterol, amitriptyline, Pristiq, diazepam, gabapentin, albuterol inhaler, nystatin, Zofran. ALLERGIES: MORPHINE, SEVERE SWELLING; ASPIRIN, INTERMEDIATE; OXYCODONE, INTERMEDIATE. REVIEW OF SYSTEMS: Limited, but negative otherwise in the HPI. PHYSICAL EXAMINATION: VITAL SIGNS: Stable. GENERAL: Alert, awake, sitting in the bed, in no acute distress, oriented to self. HEENT: Dentition poor. Anicteric. Pupils equal, reactive, atraumatic. No oral thrush. NECK: Supple. LUNGS: Clear bilaterally. HEART: S1, S2. ABDOMEN: Soft, nontender, positive bowel sounds. EXTREMITIES: No edema, no cyanosis. NEUROLOGIC: Alert and oriented x 3, grossly nonfocal. PSYCHIATRIC: Cooperative, appropriate mood and affect. DERMATOLOGY: No ulcerations, scratches. No jaundice. MUSCULOSKELETAL: No joint swelling or decrease in range of motion. LABORATORY DATA: White count 4.8, hemoglobin 9.8, hematocrit 30, platelets 188. Sodium 147, potassium 4.0, chloride 103, bicarbonate 23, BUN 9, creatinine 0.7, glucose 88. Calcium 8.2, albumin 2.2, total protein 5.4. MICROBIOLOGY: None. IMAGING: CT head as above. Chest x-ray as above. IMPRESSION: 1. Confusion, likely metabolic encephalopathy, resolved. 2. History of marijuana use prior to admission, could have contributed the same, now back to baseline. 3. History of bipolar disorder. 4. No evidence of urinary tract infection, on urinalysis. RECOMMENDATIONS: 1. Continue observation off antibiotics. 2. Per team, the patient is being discharged home today. 3. Discussed with RN. Thank you, Dr. Plascencia, for involving us to participate in this patient's care. LUKE VERDIN MD DR: NIXON/nanette JOB#: [id number] / [id number]
[2018-10-22] MEDS ORDERED: ACETAMINOPHEN 500 MG TABLET PO PRN (12:45)
--- NOTE | 2018-10-22 14:00 | NUR ---
SW consulted for dc planning. Chart reviewed. Pt is known to SW from previous admission. Pt discharging with self care today. SW made a referral to PAT team and pt's tx team at [facility] was notified. Pt's Core Loader to meet with pt prior discharge and is also able to take pt to her next appointment at [facility] in 10/26/18. Pt is referred for med stabilization and housing. Pt does not qualify for BSC due to medicare guidelines. Pt and family able to get BSC from local [employer] for [employer]. RN notified.
--- NOTE | 2018-10-22 14:34 | NUR ---
Discharge Note: BUCIO,ISABELL L5 [place] Discharge instructions and discharge home medications reviewed with Patient and a copy given. All questions have been answered and understanding verbalized. The following instructions and handouts were given: discharge instructions, new prescriptions, education and follow up recommendations. Discontinued lines and drains: Peripheral IV discontinued intact. Patient discharged to Home or Self Care with Family Member via Wheelchair off unit by [employer], home via private vehicle.
== END 2018-10-22 14:41 | disposition home or self-care (01) | DRG 871 ==
LOC: ER 08:40 → 5 NORTH 10:20
PROVIDERS: ADMIT Family Medicine; ATTEND Family Medicine
DX: A41.9 Sepsis, unspecified organism (principal); G93.41 Metabolic encephalopathy; N39.0 Urinary tract infection, site not specified; E87.0 Hyperosmolality and hypernatremia; E44.0 Moderate protein-calorie malnutrition; F20.9 Schizophrenia, unspecified; E87.6 Hypokalemia; F31.9 Bipolar disorder, unspecified; I10 Essential (primary) hypertension; F12.90 Cannabis use, unspecified, uncomplicated; F41.9 Anxiety disorder, unspecified; D64.9 Anemia, unspecified; Z90.49 Acquired absence of other specified parts of digestive tract; Z88.6 Allergy status to analgesic agent; Z88.5 Allergy status to narcotic agent; Z82.49 Family history of ischemic heart disease and other diseases of the circulatory system; Z88.8 Allergy status to other drugs, medicaments and biological substances
CPT/HCPCS: 36415; 70450; 71045; 80048; 80053; 80307; 81001; 82140; 82607; 83540; 83550; 83735; 83880; 84484; 85025; 85610; 87086; 87186; 93005; G0480; J0696; 99285-25

== ENCOUNTER 2019-07-07 10:39 | Inpatient (IN) | payer OTHER, MEDICAID ==
[~2019-07-07] VITALS: Ht 152.4 cm; Wt 75.6 kg
[2019-07-07] VITALS (12 sets, daily range): BP systolic 87–158; BP diastolic 40–98
[~2019-07-07 10:39] MED LIST changes: +CEPH-264 PO
[2019-07-07] MEDS ORDERED: PROPOFOL 50 ML IV ONE ×2 (11:00→12:06)
[2019-07-07] MEDS ORDERED: MIDAZOLAM 100mg/100ml NS BAG 100 ML IV ONE (11:15)
[2019-07-07] MEDS ORDERED: IV NORMAL SALINE 1000ML BAG 1,000 ML IV ONE ×2 (11:15→12:00)
[2019-07-07 11:21] LABS: BASO % 0 % (0-3); EOS % 0 % (0-3); HEMATOCRIT 32.6 % (36.0-47.0); HEMOGLOBIN 11.3 g/dL (12.0-15.5); LYMPH # 0.6 x10^3/uL (1.0-4.8); LYMPH % 7 % (24-48); MEAN CORPUSCULAR HEMOGLOBIN 33 pg (25-35); MEAN CORPUSCULAR HGB CONC 35 g/dL (31-37); MEAN CORPUSCULAR VOLUME 96 fL (79-100); MONO # 0.5 x10^3/uL (0.0-1.1); MONO % 5 % (0-9); NEUT # 8.4 x10^3/uL (1.8-7.7); NEUT % 88 % (31-73); PLATELET COUNT 317 x10^3/uL (140-400); RED BLOOD COUNT 3.41 x10^6/uL (3.50-5.40); WHITE BLOOD COUNT 9.5 x10^3/uL (4.0-11.0)
--- NOTE | 2019-07-07 11:23 | RAD ---
Study: PORTABLE CHEST 1V Indication: Unresponsive. Comparison: 10/20/2018 Findings: Endotracheal tube tip terminating approximately 2 cm from the jarrod. Enteric tube tip and sidehole projected within the stomach. There is kinking of the tube just distal to the sidehole. No pneumothorax, large effusion or lobar infiltrate. Similar configuration of the cardia mediastinal silhouette and lulu taking into consideration differences in patient positioning. Granulomas noted. Scattered chronic rib fractures. Bilateral shoulder arthroplasties. Surgical changes at the upper abdomen. Impression: 1. Endotracheal tube tip terminating approximately 2 cm from the jarrod. Enteric tube tip and sidehole within the stomach noting that there is kinking of the tubing just distal to the sidehole. 2. No acute radiographic abnormality of the chest. Chronic findings as discussed above. Electronically signed by: LAKSHMI SALEH MD (07/07/2019 11:20 AM) [facility]
[2019-07-07 11:30] LABS: CALCIUM 8.3 mg/dL (8.5-10.1); CREATININE 0.7 mg/dL (0.6-1.0); POTASSIUM 4.1 mmol/L (3.5-5.1)
[2019-07-07 11:37] LABS: ALBUMIN 3.8 g/dL (3.4-5.0); PROTHROMBIN TIME PATIENT 13.2 SEC (11.7-14.0); TOTAL BILIRUBIN 0.4 mg/dL (0.2-1.0); TOTAL PROTEIN 7.6 g/dL (6.4-8.2)
--- NOTE | 2019-07-07 11:40 | RAD ---
CT head without contrast: Reason for examination: Unresponsive. Comparison is made to previous study dated 10/20/2018. Axial images were obtained through the brain with no contrast administered. Exposure: One or more of the following individualized dose reduction techniques were utilized for this examination: 1. Automated exposure control 2. Adjustment of the mA and/or kV according to patient size 3. Use of iterative reconstruction technique. Ventricular systems are prominent but symmetric and have not changed consistent with some generalized cerebral atrophy. No midline shift is seen. There is no evidence of intracranial hemorrhage, infarct, mass or edema. There are some subtle deep white matter changes bilaterally which are predominantly in the frontal and parietal lobes and probably reflects microvascular ischemic changes. No abnormalities of seen at the orbits. The paranasal sinuses and mastoid air cells are clear. No acute abnormality seen in the skull. IMPRESSION: Mild generalized cerebral atrophy with some mild microvascular ischemic changes in the frontal and parietal lobes. No acute intracranial abnormality evident. Electronically signed by: Mary Tavarez MD (07/07/2019 11:38 AM) [facility]
[2019-07-07 11:45] LABS: BASE EXCESS ABG -8 mmol/L (-3-3); FIO2 ABG 100; HCO3 ABG 17 mmol/L (21-28); PCO2 ABG 30 mmHg (35-46); PO2 ABG > 503 mmHg (65-108); SAT O2 ABG 98 % (92-99)
[2019-07-07] MEDS ORDERED: fentaNYL PF VIAL 100 MCG/2 ML VIAL IVP PRN (11:45)
[2019-07-07] MEDS ORDERED: ACETAMINOPHEN 650 MG/20.3 ML SOLUTION. PEG PRN (11:45)
[2019-07-07] MEDS ORDERED: ONDANSETRON PF 4 MG/2 ML VIAL. IVP PRN (11:45)
--- NOTE | 2019-07-07 11:51 | PHYS DOC ---
Past Medical History Past Medical History: Asthma, Bipolar, Hypertension Additional Past Medical Histor: BIPOLAR, 09/22 UNKNOWN UNRESPONSIVE Past Surgical History: Cholecystectomy, Other Additional Past Surgical Histo: LEFT SHOULDER Alcohol Use: Occasionally Drug Use: Marijuana Adult General Chief Complaint Chief Complaint: ALTERED MENTAL STATUS HPI HPI Patient is a 64 year old female patient with history of hypertension, asthma, bipolar disorder and unknown unresponsiveness who presents to EMS with complaint of altered level of consciousness. Patient's ex-daughter in law states she was with her for the last 2 nights and she complaining of feeling hot the first night and feeling cold the last night. Patient was sent by her at 2200 last night and this morning she was found unresponsive inside of her house with face up and rolling eyes in front of outside door and open her eyes when she called her name. EMS reported that patient was alert and oriented 1 and making faces with calling her name. Patient was unresponsive at arrival to ER with GCS of 3 with urine and bowel incontinence and was intubated at 1050. Review of Systems Review of Systems Unable to obtain, unresponsive Current Medications Current Medications Current Medications Medications (Trade) Dose Ordered Sig/Ashli Start Time Stop Time Status Last Admin Dose Admin Midazolam HCl 100 ml @ 1 mls/hr 1X ONCE 07/07/19 11:15 07/11/19 15:14 Propofol 50 ml @ As Directed STK-MED ONCE 07/07/19 11:00 07/07/19 11:01 DC Sodium Chloride 1,000 ml @ 1,000 mls/hr 1X ONCE 07/07/19 11:15 07/07/19 12:14 DC Allergies Allergies Allergies Coded Allergies Type Severity Reaction Last Updated Verified morphine Allergy Severe swelling 07/01/18 Yes aspirin Allergy Intermediate 07/05/18 Yes oxycodone Allergy Intermediate 07/05/18 Yes I S O L A T I O N *CONTACT* Allergy Unknown 09/24/18 Yes Physical Exam Physical Exam Constitutional: Well nourished, unresponsive, non-toxic appearance. [] HENT: Normocephalic, atraumatic. old dried mucus between lips, unable to open the mouth because of tightness of jaw Eyes: Bilateral eyes fixed gaze to right side Neck: atraumatic Cardiovascular:Heart rate regular rhythm. Lungs & Thorax: No respiratory distress, Abdomen: Atraumatic Skin: Warm, dry, no erythema, no rash. [] Extremities: Not moving extremities Neurologic: Unresponsive, GCS of 3 Psychologic: Unable to evaluate Current Patient Data Vital Signs Vital Signs Date Time Temp Pulse Resp B/P (MAP) Pulse Ox O2 Delivery O2 Flow Rate FiO2 07/07/19 11:15 97 Ventilator Lab Values Laboratory Tests Test 07/07/19 10:42 07/07/19 10:46 07/07/19 10:48 White Blood Count 9.5 x10^3/uL (4.0-11.0) Red Blood Count 3.41 x10^6/uL (3.50-5.40) L Hemoglobin 11.3 g/dL (12.0-15.5) L Hematocrit 32.6 % (36.0-47.0) L Mean Corpuscular Volume 96 fL (79-100) Mean Corpuscular Hemoglobin 33 pg (25-35) Mean Corpuscular Hemoglobin Concent 35 g/dL (31-37) Red Cell Distribution Width 13.0 % (11.5-14.5) Platelet Count 317 x10^3/uL (140-400) Neutrophils (%) (Auto) 88 % (31-73) H Lymphocytes (%) (Auto) 7 % (24-48) L Monocytes (%) (Auto) 5 % (0-9) Eosinophils (%) (Auto) 0 % (0-3) Basophils (%) (Auto) 0 % (0-3) Neutrophils # (Auto) 8.4 x10^3/uL (1.8-7.7) H Lymphocytes # (Auto) 0.6 x10^3/uL (1.0-4.8) L Monocytes # (Auto) 0.5 x10^3/uL (0.0-1.1) Eosinophils # (Auto) 0.0 x10^3/uL (0.0-0.7) Basophils # (Auto) 0.0 x10^3/uL (0.0-0.2) Platelet Estimate Pending Prothrombin Time 13.2 SEC (11.7-14.0) Prothrombin Time INR 1.0 (0.8-1.1) Activated Partial Thromboplast Time 28 SEC (24-38) Sodium Level 134 mmol/L (136-145) L Potassium Level 4.1 mmol/L (3.5-5.1) Chloride Level 98 mmol/L (98-107) Carbon Dioxide Level 21 mmol/L (21-32) Anion Gap 15 (6-14) H Blood Urea Nitrogen 5 mg/dL (7-20) L Creatinine 0.7 mg/dL (0.6-1.0) Estimated GFR (Cockcroft-Gault) 84.0 BUN/Creatinine Ratio 7 (6-20) Glucose Level 125 mg/dL (70-99) H Lactic Acid Level 4.2 mmol/L (0.4-2.0) *H Calcium Level 8.3 mg/dL (8.5-10.1) L Magnesium Level 2.0 mg/dL (1.8-2.4) Total Bilirubin 0.4 mg/dL (0.2-1.0) Aspartate Amino Transferase (AST) 14 U/L (15-37) L Alanine Aminotransferase (ALT) 14 U/L (14-59) Alkaline Phosphatase 133 U/L (46-116) H Ammonia 66 mcmol/L (11-34) H Creatine Kinase 118 U/L (26-192) Troponin I Quantitative < 0.017 ng/mL (0.000-0.055) DR-Nxu-V-Type Natriuretic Peptide 333 pg/mL (0-124) H Total Protein 7.6 g/dL (6.4-8.2) Albumin 3.8 g/dL (3.4-5.0) Albumin/Globulin Ratio 1.0 (1.0-1.7) Lipase 44 U/L (73-393) L Thyroid Stimulating Hormone (TSH) 0.625 uIU/mL (0.358-3.74) O2 Saturation 98 % (92-99) Arterial Blood pH 7.36 (7.35-7.45) Arterial Blood pCO2 at Patient Temp 30 mmHg (35-46) L Arterial Blood pO2 at Patient Temp > 503 mmHg (65-108) H Arterial Blood HCO3 17 mmol/L (21-28) L Arterial Blood Base Excess -8 mmol/L (-3-3) L FiO2 100 Glucose (Fingerstick) 123 mg/dL (70-99) H Laboratory Tests 07/07/19 10:42 Laboratory Tests 07/07/19 10:42 EKG EKG EKG interpreted by me. EKG at 1048 showed sinus rhythm at rate of 92, multiple artifact, no acute ST and T-wave elevation. Radiology/Procedures Radiology/Procedures [][facility] [address] [place] [address] IMAGING REPORT Signed PATIENT: ISABELL BUCIO ACCOUNT: [id number] : 1955 LOCATION: ER AGE: 64 SEX: F EXAM STATUS: REG ER ORD. PHYSICIAN: YEIMY NAZARIO MD REASON: unresponsive PROCEDURE: PORTABLE CHEST 1V Study: PORTABLE CHEST 1V Indication: Unresponsive. Comparison: 10/20/2018 Findings: Endotracheal tube tip terminating approximately 2 cm from the jarrod. Enteric tube tip and sidehole projected within the stomach. There is kinking of the tube just distal to the sidehole. No pneumothorax, large effusion or lobar infiltrate. Similar configuration of the cardia mediastinal silhouette and lulu taking into consideration differences in patient positioning. Granulomas noted. Scattered chronic rib fractures. Bilateral shoulder arthroplasties. Surgical changes at the upper abdomen. Impression: 1. Endotracheal tube tip terminating approximately 2 cm from the jarrod. Enteric tube tip and sidehole within the stomach noting that there is kinking of the tubing just distal to the sidehole. 2. No acute radiographic abnormality of the chest. Chronic findings as discussed above. Electronically signed by: LAKSHMI SALEH MD (07/07/2019 11:20 AM) [facility] DICTATED and SIGNED BY: LAKSHMI SALEH MD DATE: 07/07/[address] [id number] IMAGING REPORT Signed PATIENT: ISABELL BUCIO ACCOUNT: [id number] : 1955 LOCATION: ER AGE: 64 SEX: F EXAM STATUS: REG ER ORD. PHYSICIAN: YEIMY NAZARIO MD REASON: unresponsive PROCEDURE: CT HEAD WO CONTRAST CT head without contrast: Reason for examination: Unresponsive. Comparison is made to previous study dated 10/20/2018. Axial images were obtained through the brain with no contrast administered. Exposure: One or more of the following individualized dose reduction techniques were utilized for this examination: 1. Automated exposure control 2. Adjustment of the mA and/or kV according to patient size 3. Use of iterative reconstruction technique. Ventricular systems are prominent but symmetric and have not changed consistent with some generalized cerebral atrophy. No midline shift is seen. There is no evidence of intracranial hemorrhage, infarct, mass or edema. There are some subtle deep white matter changes bilaterally which are predominantly in the frontal and parietal lobes and probably reflects microvascular ischemic changes. No abnormalities of seen at the orbits. The paranasal sinuses and mastoid air cells are clear. No acute abnormality seen in the skull. IMPRESSION: Mild generalized cerebral atrophy with some mild microvascular ischemic changes in the frontal and parietal lobes. No acute intracranial abnormality evident. Electronically signed by: Jamie Sanchez MD (07/07/2019 11:38 AM) [facility] DICTATED and SIGNED BY: JAMIE SANCHEZ MD DATE: 07/07/19 1138 Indication: Unresponsive Consent: Unable to give consent due to emergent nature. Medications Used: Etomidate 20 mg, succinylcholine 100 mg Procedure: The patient was placed in the appropriate position. Pre- oxygenation performed with 100% oxygen. Blade: Byrd ET Tube:7.5 Depth: 21 cm at the gum Number of attempts: 1 Time of Intubation:1050 Intubation was performed with direct visualization and 7.[address] without problem.ET tube was secured with device. Initial confirmation of placement included colorimetric CO2, bilateral breath sounds, tube fogging, adequate chest rise, adequate pulse oximetry reading. A chest x-ray to verify correct placement of the tube showed appropriate tube position. The patient tolerated the procedure well. Complications: none. Course & Med Decision Making Course & Med Decision Making Pertinent Labs and Imaging studies reviewed. (See chart for details) Evaluation of patient in ER showed 64-year-old female patient found unresponsive with unknown downtime. Patient was intubated on arrival to ER. CT head showed did not show acute finding. Patient had elevation of lactic acid of 4.2 and treated with IV fluid and antibiotic.Patient requiring admission for further evaluation and treatment. Discussed with Dr. Boland who is in agreement with admission. Discussed findings and plan with patient and family, who acknowledge understanding and agreement. Dragon Disclaimer Dragon Disclaimer This electronic medical record was generated, in whole or in part, using a voice recognition dictation system. Departure Departure Impression: Primary Impression: Unresponsive Additional Impressions: Severe sepsis Anemia Serum ammonia increased Disposition: ADMITTED INPATIENT (At 1145) Admitting Physician: JUAN PABLO (Dr. Boland accepted admission at 1144) Condition: GUARDED Referrals: MILY COOK MD (PCP) Date and Time of Reassessment Date: Jul 07, 2019 Time: 11:55 Fluid Challenge Is the fluid challenge complet: Yes IBW Target Volume Used: Yes BMI > 30: Yes Vital Signs Vital Signs: Vital Signs Date Time Temp Pulse Resp B/P (MAP) Pulse Ox O2 Delivery O2 Flow Rate FiO2 07/07/19 11:15 97 Ventilator Respirations Respiratory Pattern: Normal Cardiovascular Pulse Rhythm: Regular Heart: Nml rate, reg. rhythm Lung Sounds Breath Sounds: Clear Capillary Refil Capillary Refill: Rt Hand < 3 seconds Peripheral Pulse Pulse Location: Radial Pulse Strength: Normal (2+) Pulse Assessment Method: NIBP Critical Care Time Critical care time was 70 minutes exclusive of procedures. Problem Qualifiers Additional Impressions: Anemia Anemia type: unspecified type Qualified Codes: D64.9 - Anemia, unspecified YEIMY NAZARIO MD Jul 07, 2019 11:51
[2019-07-07] MEDS ORDERED: VANCOMYCIN 1GM IVPB FOR OMNI 250 ML IV ONE (12:00)
[2019-07-07] MEDS ORDERED: VANCOMYCIN 1.5 GM in IV NORMAL SALINE 500ML BAG 500 ML IV ONE (12:00)
[2019-07-07] MEDS ORDERED: PIPERACILLIN/TAZOBACTAM 3.375 GM in IV NORMAL SALINE 50ML 50 ML IV ONE (12:00)
[2019-07-07] MEDS: IV 1/2 NORMAL SALINE 1,000 ML IV SCH ×2 (12:00→21:13)
--- NOTE | 2019-07-07 12:00 | PDOC1 ---
History and Physical Date of Admission Date of Admission DATE: 07/07/19 TIME: 11:55 Identification/Chief Complaint Chief Complaint confusion, RT preferential gaze prior to intubation Source Source: Caregiver, Chart review, Patient History of Present Illness History of Present Illness 64 white female, obese, maybe smoker and COPD? home meds including meds for schiz, bipolar, maybe depression, past admits here for confusion r.o CVA. LAst seen normal 10 pM last night, dtr -in-law says found EMS face up confused, at ER needed to be intubated, low GCS. CT head atrophy, no bleed, CXR appropriate ET tube position bot n acute chest abN GEtting hare now BP HIGH side LAbs quite UNimpressive, UA still pending Past Medical History Cardiovascular: HTN Psych: Anxiety, Bipolar, Depression Past Surgical History Past Surgical History: No pertinent history Family History Family History: Hypertension Social History Smoke: <1 pack per day ALCOHOL: none Drugs: None Current Problem List Problem List Problems Medical Problems: (1) Unresponsive Status: Acute Current Medications Current Medications Current Medications Midazolam HCl 100 ml @ 1 mls/hr 1X ONCE IV ; Start 07/07/19 at 11:15; Stop 07/11/19 at 15:14 Propofol 50 ml @ As Directed STK-MED ONCE IV ; Start 07/07/19 at 11:00; Stop 07/07/19 at 11:01; Status DC Sodium Chloride 1,000 ml @ 1,000 mls/hr 1X ONCE IV ; Start 07/07/19 at 11:15; Stop 07/07/19 at 12:14 Famotidine (Pepcid Vial) 20 mg QHS IVP ; Start 07/07/19 at 21:00 Enoxaparin Sodium (Lovenox 40mg Syringe) 40 mg Q24H SQ ; Start 07/07/19 at 13:00 Labetalol HCl (Normodyne Iv Push) 10 mg PRN Q2HR PRN IVP HYPERTENSION; Start 07/07/19 at 11:45 Fentanyl Citrate (Fentanyl 2ml Vial) 50 mcg PRN Q2HR PRN IVP PAIN; Start 07/07/19 at 11:45 Acetaminophen (Tylenol) 650 mg PRN Q6HRS PRN PEG MILD PAIN / TEMP; Start 07/07/19 at 11:45 Ondansetron HCl (Zofran) 4 mg PRN Q6HRS PRN IVP NAUSEA/VOMITING; Start 07/07/19 at 11:45 Sodium Chloride 1,000 ml @ 100 mls/hr Q10H IV ; Start 07/07/19 at 12:00 Ferrous Sulfate (Feosol) 325 mg DAILYWBKFT PO ; Start 07/08/19 at 08:00 Albuterol/ Ipratropium (Duoneb) 3 ml RTQID NEB ; Start 07/07/19 at 12:00 Piperacillin Sod/ Tazobactam Sod 3.375 gm/Sodium Chloride 50 ml @ 100 mls/hr 1X ONCE IV ; Start 07/07/19 at 12:00; Stop 07/07/19 at 12:29; Status UNV Vancomycin HCl 250 ml @ 250 mls/hr 1X ONCE IV ; Start 07/07/19 at 12:00; Stop 07/07/19 at 12:59; Status UNV Sodium Chloride 1,000 ml @ 1,000 mls/hr 1X ONCE IV ; Start 07/07/19 at 12:00; Stop 07/07/19 at 12:59; Status UNV Active Scripts Active Keflex (Cephalexin) 500 Mg Capsule 2 Cap PO BID 5 Days Reported [iron] 325 Mg PO Ventolin Hfa Inhaler (Albuterol Sulfate) 18 Gm Hfa.aer.ad 2 Puff INH Q4HRS PRN Pristiq Er (Desvenlafaxine Succinate) 50 Mg Tab.er.24h 1 Tab PO DAILY Amitriptyline Hcl 25 Mg Tablet 1 Tab PO QHS Diazepam 5 Mg Tablet 5 Mg PO TID Gabapentin (Gabapentin) 300 Mg Capsule 300 Mg PO TID Allergies Allergies: Coded Allergies: morphine (Verified Allergy, Severe, swelling, 07/01/18) aspirin (Verified Allergy, Intermediate, 07/05/18) TOLERATES IBUPROFEN oxycodone (Verified Allergy, Intermediate, 07/05/18) I S O L A T I O N *CONTACT* (Verified Allergy, Unknown, 09/24/18) mrsa ROS Review of System intubated, sedated on versed and propofol Physical Exam General: No acute distress, Other (intubated, sedated) HEENT: Atraumatic, PERRLA Lungs: Clear to auscultation, Normal air movement Heart: S1S2, RRR, no thrills, no rubs Cardiovascular: S1, S2 Breasts: Normal, Rt breast nml w/o mass, Lt breast nml w/o mass, Nipples normal Abdomen: Normal bowel sounds, Soft, No tenderness, No hepatosplenomegaly, No masses Rectal Exam: not examined PELVIC: Nml ext genitalia Extremities: No clubbing, No cyanosis, No edema, Normal pulses, No tenderness/swelling Skin: No rashes, No breakdown, No significant lesion Neuro: Normal gait, Normal speech, Strength at 5/5 X4 ext, Normal tone, Sensation intact, Cranial nerves 3-12 NL, Reflexes 2+ Psych/Mental Status: Mental status NL, Mood NL Labs Labs Laboratory Tests Test 07/07/19 10:42 07/07/19 10:46 07/07/19 10:48 White Blood Count 9.5 x10^3/uL (4.0-11.0) Red Blood Count 3.41 x10^6/uL (3.50-5.40) Hemoglobin 11.3 g/dL (12.0-15.5) Hematocrit 32.6 % (36.0-47.0) Mean Corpuscular Volume 96 fL (79-100) Mean Corpuscular Hemoglobin 33 pg (25-35) Mean Corpuscular Hemoglobin Concent 35 g/dL (31-37) Red Cell Distribution Width 13.0 % (11.5-14.5) Platelet Count 317 x10^3/uL (140-400) Neutrophils (%) (Auto) 88 % (31-73) Lymphocytes (%) (Auto) 7 % (24-48) Monocytes (%) (Auto) 5 % (0-9) Eosinophils (%) (Auto) 0 % (0-3) Basophils (%) (Auto) 0 % (0-3) Neutrophils # (Auto) 8.4 x10^3/uL (1.8-7.7) Lymphocytes # (Auto) 0.6 x10^3/uL (1.0-4.8) Monocytes # (Auto) 0.5 x10^3/uL (0.0-1.1) Eosinophils # (Auto) 0.0 x10^3/uL (0.0-0.7) Basophils # (Auto) 0.0 x10^3/uL (0.0-0.2) Prothrombin Time 13.2 SEC (11.7-14.0) Prothromb Time International Ratio 1.0 (0.8-1.1) Activated Partial Thromboplast Time 28 SEC (24-38) Sodium Level 134 mmol/L (136-145) Potassium Level 4.1 mmol/L (3.5-5.1) Chloride Level 98 mmol/L (98-107) Carbon Dioxide Level 21 mmol/L (21-32) Anion Gap 15 (6-14) Blood Urea Nitrogen 5 mg/dL (7-20) Creatinine 0.7 mg/dL (0.6-1.0) Estimated GFR (Cockcroft-Gault) 84.0 BUN/Creatinine Ratio 7 (6-20) Glucose Level 125 mg/dL (70-99) Lactic Acid Level 4.2 mmol/L (0.4-2.0) Calcium Level 8.3 mg/dL (8.5-10.1) Magnesium Level 2.0 mg/dL (1.8-2.4) Total Bilirubin 0.4 mg/dL (0.2-1.0) Aspartate Amino Transf (AST/SGOT) 14 U/L (15-37) Alanine Aminotransferase (ALT/SGPT) 14 U/L (14-59) Alkaline Phosphatase 133 U/L (46-116) Ammonia 66 mcmol/L (11-34) Creatine Kinase 118 U/L (26-192) Troponin I Quantitative < 0.017 ng/mL (0.000-0.055) FB-[id number]-M-Type Natriuretic Peptide 333 pg/mL (0-124) Total Protein 7.6 g/dL (6.4-8.2) Albumin 3.8 g/dL (3.4-5.0) Albumin/Globulin Ratio 1.0 (1.0-1.7) Lipase 44 U/L (73-393) Thyroid Stimulating Hormone (TSH) 0.625 uIU/mL (0.358-3.74) O2 Saturation 98 % (92-99) Arterial Blood pH 7.36 (7.35-7.45) Arterial Blood pCO2 at Patient Temp 30 mmHg (35-46) Arterial Blood pO2 at Patient Temp > 503 mmHg (65-108) Arterial Blood HCO3 17 mmol/L (21-28) Arterial Blood Base Excess -8 mmol/L (-3-3) FiO2 100 Glucose (Fingerstick) 123 mg/dL (70-99) Laboratory Tests Test 07/07/19 10:42 07/07/19 10:46 07/07/19 10:48 White Blood Count 9.5 x10^3/uL (4.0-11.0) Red Blood Count 3.41 x10^6/uL (3.50-5.40) Hemoglobin 11.3 g/dL (12.0-15.5) Hematocrit 32.6 % (36.0-47.0) Mean Corpuscular Volume 96 fL (79-100) Mean Corpuscular Hemoglobin 33 pg (25-35) Mean Corpuscular Hemoglobin Concent 35 g/dL (31-37) Red Cell Distribution Width 13.0 % (11.5-14.5) Platelet Count 317 x10^3/uL (140-400) Neutrophils (%) (Auto) 88 % (31-73) Lymphocytes (%) (Auto) 7 % (24-48) Monocytes (%) (Auto) 5 % (0-9) Eosinophils (%) (Auto) 0 % (0-3) Basophils (%) (Auto) 0 % (0-3) Neutrophils # (Auto) 8.4 x10^3/uL (1.8-7.7) Lymphocytes # (Auto) 0.6 x10^3/uL (1.0-4.8) Monocytes # (Auto) 0.5 x10^3/uL (0.0-1.1) Eosinophils # (Auto) 0.0 x10^3/uL (0.0-0.7) Basophils # (Auto) 0.0 x10^3/uL (0.0-0.2) Prothrombin Time 13.2 SEC (11.7-14.0) Prothromb Time International Ratio 1.0 (0.8-1.1) Activated Partial Thromboplast Time 28 SEC (24-38) Sodium Level 134 mmol/L (136-145) Potassium Level 4.1 mmol/L (3.5-5.1) Chloride Level 98 mmol/L (98-107) Carbon Dioxide Level 21 mmol/L (21-32) Anion Gap 15 (6-14) Blood Urea Nitrogen 5 mg/dL (7-20) Creatinine 0.7 mg/dL (0.6-1.0) Estimated GFR (Cockcroft-Gault) 84.0 BUN/Creatinine Ratio 7 (6-20) Glucose Level 125 mg/dL (70-99) Lactic Acid Level 4.2 mmol/L (0.4-2.0) Calcium Level 8.3 mg/dL (8.5-10.1) Magnesium Level 2.0 mg/dL (1.8-2.4) Total Bilirubin 0.4 mg/dL (0.2-1.0) Aspartate Amino Transf (AST/SGOT) 14 U/L (15-37) Alanine Aminotransferase (ALT/SGPT) 14 U/L (14-59) Alkaline Phosphatase 133 U/L (46-116) Ammonia 66 mcmol/L (11-34) Creatine Kinase 118 U/L (26-192) Troponin I Quantitative < 0.017 ng/mL (0.000-0.055) MJ-[id number]-R-Type Natriuretic Peptide 333 pg/mL (0-124) Total Protein 7.6 g/dL (6.4-8.2) Albumin 3.8 g/dL (3.4-5.0) Albumin/Globulin Ratio 1.0 (1.0-1.7) Lipase 44 U/L (73-393) Thyroid Stimulating Hormone (TSH) 0.625 uIU/mL (0.358-3.74) O2 Saturation 98 % (92-99) Arterial Blood pH 7.36 (7.35-7.45) Arterial Blood pCO2 at Patient Temp 30 mmHg (35-46) Arterial Blood pO2 at Patient Temp > 503 mmHg (65-108) Arterial Blood HCO3 17 mmol/L (21-28) Arterial Blood Base Excess -8 mmol/L (-3-3) FiO2 100 Glucose (Fingerstick) 123 mg/dL (70-99) VTE Prophylaxis Ordered VTE Prophylaxis Devices: Yes VTE Pharmacological Prophylaxi: Yes Assessment/Plan Assessment/Plan Acute enceph, needed to be iPPV on arrival RT preferential gaze [employer] Hx depression, bipolar, schiz on meds Obesity' HTn accel Cerebral atrophy PLAn: ICU bed Full code neuro consult VEnt bundle, pulmo consult ASA, TFs c.o nutrition DVt and pPI ppx further recs pending course INsert elian ragsdale seen in ER DTr-in-law NOT at bedside during my visit NAVIN SAN MD Jul 07, 2019 12:00
[2019-07-07 12:16] LABS: BILIRUBIN,URINE NEGATIVE (NEG); CLARITY,URINE CLEAR; COLOR,URINE YELLOW; NITRITE,URINE NEGATIVE (NEG); PH,URINE 6.5; PROTEIN,URINE 30 mg/dL (NEG-TRACE)
[2019-07-07 12:18] LABS: BARBITURATES NEG (NEG); BENZODIAZEPINES POS (NEG); CANNABINOIDS NEG (NEG); COCAINE NEG (NEG); METHADONE NEG (NEG); OPIATES NEG (NEG); PHENCYCLIDINE NEG (NEG)
[2019-07-07 12:23] LABS: AMPHETAMINE/METHAMPHETAMINE NEG (NEG)
[2019-07-07 12:27] LABS: SQUAMOUS EPITHELIAL CELL,UR FEW /LPF
[2019-07-07 12:28] LABS: BACTERIA,URINE 0 /HPF (0-FEW); WBC,URINE 0 /HPF (0-4)
[2019-07-07] MEDS: IPRATRPIUM/ALBUTEROL 0.5/2.5MG 3 ML NEBU. NEB SCH ×3 (12:40→19:59)
[2019-07-07 13:27] LABS: % BANDS 2 % (0-9); % LYMPHS 7 % (24-48); % MONOS 6 % (0-10); % SEGS 85 % (35-66); PLT ESTIMATE ADEQUATE (ADEQUATE)
[2019-07-07] MEDS ORDERED: MIDAZOLAM HCL/PF 5 MG/5 ML VIAL. IV ONE ×2 (13:30)
--- NOTE | 2019-07-07 13:30 | NUR ---
Pt to room from ER. Transferred to ICU bed. Pt placed on vent. Pt sedated with Propofol. Pt placed on monitor.
[2019-07-07] MEDS ORDERED: ETOMIDATE 20 MG/10 ML VIAL. IV ONE (13:45)
[2019-07-07] MEDS ORDERED: fentaNYL PF VIAL 100 MCG/2 ML VIAL IVP ONE (13:45)
[2019-07-07] MEDS ORDERED: SUCCINYLCHOLINE 200 MG/10 ML VIAL. IV ONE (13:45)
[2019-07-07] MEDS: IV NORMAL SALINE 1000ML BAG 1,000 ML IV SCH ×2 (13:53→15:57)
[2019-07-07] MEDS ORDERED: PROPOFOL 100 ML IV ONE (14:03)
[2019-07-07] MEDS: ENOXAPARIN 40 MG/0.4 ML SYRINGE. SQ SCH (14:10)
--- NOTE | 2019-07-07 14:30 | NUR ---
Labs called to Dr. Boland. Orders received for lactulose for elevated ammonia level. Receiving fluid bolus per protocol for elevated Lactic acid. Will continue to monitor.
[2019-07-07] MEDS: LACTULOSE 20 GM/30 ML SOLUTION. PO SCH ×2 (14:52→21:13)
--- NOTE | 2019-07-07 15:34 | EKG ---
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
--- NOTE | 2019-07-07 17:00 | PDOC2 ---
NEUROLOGY CONSULT Date of Admission Date of Admission DATE: 07/07/19 TIME: 16:47 Reason for Consult Reason for Consult: IMPRESSION: Metabolic encephalopathy. Unresponsiveness. Drug over dose? Respiratory failure. Lactic acidosis. Herpes encephalitis? HTN. Smoking. Unresponsiveness event in 09/18 cause unknown. RECOMMENDATIONS/PLAN: Life support in ICU. Treat medical diseases. Brain MRI w/wo contrast. LP may be needed. Please consult ID. Lab: see orders. History of Present Illness This is a 64-year-old female patient with above medical diseases was found by her hv-vcmruuig-su-law in unresponsive state at home to be brought to the ER of [facility]. Her UDS study showed Benzo and alcohol positive. No detail information is available. She was reportedly to have an event of unresponsiveness without known cause in 09/18. Her home meds including meds for schiz, bipolar, maybe depression. Past Medical History Cardiovascular: HTN Psych: Anxiety, Bipolar, Depression Past Surgical History No pertinent history Family History Hypertension Social History Smoke: <1 pack per day ALCOHOL: none Drugs: None Allergies Coded Allergies: morphine (Verified Allergy, Severe, swelling, 07/01/18) aspirin (Verified Allergy, Intermediate, 07/05/18) TOLERATES IBUPROFEN oxycodone (Verified Allergy, Intermediate, 07/05/18) I S O L A T I O N *CONTACT* (Verified Allergy, Unknown, 09/24/18) mrsa MEDICATIONS: Refer to [facility] REVIEW OF SYSTEMS: Unable to obtain. Patient is unresponsive. PHYSICAL EXAMINATION: General appearance is in acute distress. HEENT: Normocephalic and nontraumatic. Eyes, nose, ears, and throat are unremarkable. Neck is supple. No lymphadenopathy. No crepitus. Cardiovascular: S1, S2, regular rate and rhythm. Pulmonary: On vent. Abdomen: Bowel sounds are positive. Extremities: No rash, lesions, or edema. No restriction of range of motion NEUROLOGICAL EXAMINATION: On vent. Unresponsive. Not oriented to time, place and person. PERRL. EOMI not elicited. CN: no focal findings. Muscle tone: Decreased. Muscle strength: No movements to stimuli. DTR: 1- Plantar reflex: No response bilaterally Gait: not able to walk. Sensory exam: minimal response to pain stimuli. Not able to access cerebellar signs.. Current Medications Current Medications Current Medications Midazolam HCl 100 ml @ 1 mls/hr 1X ONCE IV Last administered on 07/07/19at 13:52; Start 07/07/19 at 11:15; Stop 07/11/19 at 15:14 Propofol 50 ml @ As Directed STK-MED ONCE IV ; Start 07/07/19 at 11:00; Stop 07/07/19 at 11:01; Status DC Sodium Chloride 1,000 ml @ 1,000 mls/hr 1X ONCE IV Last administered on 07/07/19at 13:56; Start 07/07/19 at 11:15; Stop 07/07/19 at 12:14; Status DC Famotidine (Pepcid Vial) 20 mg QHS IVP ; Start 07/07/19 at 21:00 Enoxaparin Sodium (Lovenox 40mg Syringe) 40 mg Q24H SQ Last administered on 07/07/19at 14:10; Start 07/07/19 at 13:00 Labetalol HCl (Normodyne Iv Push) 10 mg PRN Q2HR PRN IVP HYPERTENSION; Start 07/07/19 at 11:45 Fentanyl Citrate (Fentanyl 2ml Vial) 50 mcg PRN Q2HR PRN IVP PAIN; Start 07/07/19 at 11:45 Acetaminophen (Tylenol) 650 mg PRN Q6HRS PRN PEG MILD PAIN / TEMP; Start 07/07/19 at 11:45 Ondansetron HCl (Zofran) 4 mg PRN Q6HRS PRN IVP NAUSEA/VOMITING; Start 07/07/19 at 11:45 Sodium Chloride 1,000 ml @ 100 mls/hr Q10H IV ; Start 07/07/19 at 12:00 Ferrous Sulfate (Feosol) 325 mg DAILYWBKFT PO ; Start 07/08/19 at 08:00 Albuterol/ Ipratropium (Duoneb) 3 ml RTQID NEB Last administered on 07/07/19at 15:17; Start 07/07/19 at 12:00 Piperacillin Sod/ Tazobactam Sod 3.375 gm/Sodium Chloride 50 ml @ 100 mls/hr 1X ONCE IV Last administered on 07/07/19at 13:51; Start 07/07/19 at 12:00; Stop 07/07/19 at 12:29; Status DC Vancomycin HCl 250 ml @ 250 mls/hr 1X ONCE IV ; Start 07/07/19 at 12:00; Stop 07/07/19 at 12:59; Status UNV Sodium Chloride 1,000 ml @ 1,000 mls/hr 1X ONCE IV Last administered on 07/07/19at 14:56; Start 07/07/19 at 12:00; Stop 07/07/19 at 12:59; Status DC Vancomycin HCl 1.5 gm/Sodium Chloride 500 ml @ 250 mls/hr 1X ONCE IV Last administered on 07/07/19at 12:46; Start 07/07/19 at 12:00; Stop 07/07/19 at 13:59; Status DC Sodium Chloride 1,000 ml @ 125 mls/hr Q8H IV Last administered on 07/07/19at 15:57; Start 07/07/19 at 11:52; Stop 07/08/19 at 11:51 Propofol 50 ml @ As Directed STK-MED ONCE IV ; Start 07/07/19 at 12:06; Stop 07/07/19 at 12:07; Status DC Midazolam HCl (Versed) 5 mg 1X ONCE IV Last administered on 07/07/19at 10:58; Start 07/07/19 at 13:30; Stop 07/07/19 at 13:31; Status DC Midazolam HCl (Versed) 5 mg 1X ONCE IV Last administered on 07/07/19at 11:10; Start 07/07/19 at 13:30; Stop 07/07/19 at 13:32; Status DC Succinylcholine Chloride (Anectine) 100 mg 1X ONCE IV Last administered on 07/07/19at 10:51; Start 07/07/19 at 13:45; Stop 07/07/19 at 13:46; Status DC Etomidate (Amidate) 20 mg 1X ONCE IV Last administered on 07/07/19at 10:49; Start 07/07/19 at 13:45; Stop 07/07/19 at 13:46; Status DC Fentanyl Citrate (Fentanyl 2ml Vial) 100 mcg 1X ONCE IVP Last administered on 07/07/19at 11:10; Start 07/07/19 at 13:45; Stop 07/07/19 at 13:46; Status DC Propofol 100 ml @ As Directed STK-MED ONCE IV ; Start 07/07/19 at 14:03; Stop 12/8/19 at 14:03; Status DC Propofol 100 ml @ 0.993 mls/ hr CONT PRN IV SEE I/O RECORD; Start 07/07/19 at 14:15 Lactulose (Lactulose) 20 gm BID PO Last administered on 07/07/19at 14:52; Start 07/07/19 at 14:15 Active Scripts Active Keflex (Cephalexin) 500 Mg Capsule 2 Cap PO BID 5 Days Reported [iron] 325 Mg PO Ventolin Hfa Inhaler (Albuterol Sulfate) 18 Gm Hfa.aer.ad 2 Puff INH Q4HRS PRN Pristiq Er (Desvenlafaxine Succinate) 50 Mg Tab.er.24h 1 Tab PO DAILY Amitriptyline Hcl 25 Mg Tablet 1 Tab PO QHS Diazepam 5 Mg Tablet 5 Mg PO TID Gabapentin (Gabapentin) 300 Mg Capsule 300 Mg PO TID Allergies Allergies: Allergies Coded Allergies Type Severity Reaction Last Updated Verified morphine Allergy Severe swelling 07/01/18 Yes aspirin Allergy Intermediate 07/05/18 Yes oxycodone Allergy Intermediate 07/05/18 Yes I S O L A T I O N *CONTACT* Allergy Unknown 09/24/18 Yes ROS Review of System The patient denies any associated fevers, chills, headache, ear pain, rhinorrhea, sore throat, stiff neck, productive cough, chest pain, shortness of breath, back or flank pain, abdominal pain, nausea, vomiting, diarrhea, constipation, dysuria, rash, numbness, weakness, tingling, incontinence, difficulty ambulating, or diaphoresis. Physical Exam Physical Exam General: Well developed, well nourished, no acute distress, well appearing HEENT: Pupils equally round and reactive to light, EOMI, no discharge, normal conjunctiva Neck: Supple, no nuchal rigidity, no JVD, trachea midline, no tenderness Cardiac: RRR, no murmurs, no gallops, no rubs Chest/Lungs: CTAB, no wheeze, no rhonchi, no crackles Abdomen: soft, non-distended, no guarding, no peritoneal signs, non-tender Back: No tenderness Extremities: no edema, pulses intact, non-tender,capillary refill <3 sec bilateral upper and lower extremities, Neuro: Alert and oriented x 4, no focal deficits, normal speech Vitals Vitals: Vital Signs Date Time Temp Pulse Resp B/P (MAP) Pulse Ox O2 Delivery O2 Flow Rate FiO2 07/07/19 16:00 Mechanical Ventilator 07/07/19 16:00 99 16 103/63 (76) 100 07/07/19 13:30 99.0 99.0 Labs Labs Laboratory Tests Test 07/07/19 10:42 07/07/19 10:46 07/07/19 10:48 07/07/19 11:55 White Blood Count 9.5 x10^3/uL (4.0-11.0) Red Blood Count 3.41 x10^6/uL (3.50-5.40) Hemoglobin 11.3 g/dL (12.0-15.5) Hematocrit 32.6 % (36.0-47.0) Mean Corpuscular Volume 96 fL (79-100) Mean Corpuscular Hemoglobin 33 pg (25-35) Mean Corpuscular Hemoglobin Concent 35 g/dL (31-37) Red Cell Distribution Width 13.0 % (11.5-14.5) Platelet Count 317 x10^3/uL (140-400) Neutrophils (%) (Auto) 88 % (31-73) Lymphocytes (%) (Auto) 7 % (24-48) Monocytes (%) (Auto) 5 % (0-9) Eosinophils (%) (Auto) 0 % (0-3) Basophils (%) (Auto) 0 % (0-3) Neutrophils # (Auto) 8.4 x10^3/uL (1.8-7.7) Lymphocytes # (Auto) 0.6 x10^3/uL (1.0-4.8) Monocytes # (Auto) 0.5 x10^3/uL (0.0-1.1) Eosinophils # (Auto) 0.0 x10^3/uL (0.0-0.7) Basophils # (Auto) 0.0 x10^3/uL (0.0-0.2) Segmented Neutrophils % 85 % (35-66) Band Neutrophils % 2 % (0-9) Lymphocytes % 7 % (24-48) Monocytes % 6 % (0-10) Platelet Estimate Adequate (ADEQUATE) Prothrombin Time 13.2 SEC (11.7-14.0) Prothromb Time International Ratio 1.0 (0.8-1.1) Activated Partial Thromboplast Time 28 SEC (24-38) Sodium Level 134 mmol/L (136-145) Potassium Level 4.1 mmol/L (3.5-5.1) Chloride Level 98 mmol/L (98-107) Carbon Dioxide Level 21 mmol/L (21-32) Anion Gap 15 (6-14) Blood Urea Nitrogen 5 mg/dL (7-20) Creatinine 0.7 mg/dL (0.6-1.0) Estimated GFR (Cockcroft-Gault) 84.0 BUN/Creatinine Ratio 7 (6-20) Glucose Level 125 mg/dL (70-99) Lactic Acid Level 4.2 mmol/L (0.4-2.0) Calcium Level 8.3 mg/dL (8.5-10.1) Magnesium Level 2.0 mg/dL (1.8-2.4) Total Bilirubin 0.4 mg/dL (0.2-1.0) Aspartate Amino Transf (AST/SGOT) 14 U/L (15-37) Alanine Aminotransferase (ALT/SGPT) 14 U/L (14-59) Alkaline Phosphatase 133 U/L (46-116) Ammonia 66 mcmol/L (11-34) Creatine Kinase 118 U/L (26-192) Troponin I Quantitative < 0.017 ng/mL (0.000-0.055) RC-Xwo-V-Type Natriuretic Peptide 333 pg/mL (0-124) Total Protein 7.6 g/dL (6.4-8.2) Albumin 3.8 g/dL (3.4-5.0) Albumin/Globulin Ratio 1.0 (1.0-1.7) Lipase 44 U/L (73-393) Thyroid Stimulating Hormone (TSH) 0.625 uIU/mL (0.358-3.74) O2 Saturation 98 % (92-99) Arterial Blood pH 7.36 (7.35-7.45) Arterial Blood pCO2 at Patient Temp 30 mmHg (35-46) Arterial Blood pO2 at Patient Temp > 503 mmHg (65-108) Arterial Blood HCO3 17 mmol/L (21-28) Arterial Blood Base Excess -8 mmol/L (-3-3) FiO2 100 Glucose (Fingerstick) 123 mg/dL (70-99) Urine Collection Type Unknown Urine Color Yellow Urine Clarity Clear Urine pH 6.5 Urine Specific [place] 1.015 Urine Protein 30 mg/dL (NEG-TRACE) Urine Glucose (UA) Negative mg/dL (NEG) Urine Ketones (Stick) Negative mg/dL (NEG) Urine Blood Trace (NEG) Urine Nitrite Negative (NEG) Urine Bilirubin Negative (NEG) Urine Urobilinogen Dipstick 1.0 mg/dL (0.2 mg/dL) Urine Leukocyte Esterase Negative (NEG) Urine RBC 1-2 /HPF (0-2) Urine WBC 0 /HPF (0-4) Urine Squamous Epithelial Cells Few /LPF Urine Bacteria 0 /HPF (0-FEW) Urine Mucus Slight /LPF Urine Opiates Screen Neg (NEG) Urine Methadone Screen Neg (NEG) Urine Barbiturates Neg (NEG) Urine Phencyclidine Screen Neg (NEG) Urine Amphetamine/Methamphetamine Neg (NEG) Urine Benzodiazepines Screen Pos (NEG) Urine Cocaine Screen Neg (NEG) Urine Cannabinoids Screen Neg (NEG) Urine Ethyl Alcohol Pos (NEG) Test 07/07/19 14:45 Lactic Acid Level 2.4 mmol/L (0.4-2.0) Laboratory Tests Test 07/07/19 10:42 07/07/19 10:46 07/07/19 10:48 07/07/19 11:55 White Blood Count 9.5 x10^3/uL (4.0-11.0) Red Blood Count 3.41 x10^6/uL (3.50-5.40) Hemoglobin 11.3 g/dL (12.0-15.5) Hematocrit 32.6 % (36.0-47.0) Mean Corpuscular Volume 96 fL (79-100) Mean Corpuscular Hemoglobin 33 pg (25-35) Mean Corpuscular Hemoglobin Concent 35 g/dL (31-37) Red Cell Distribution Width 13.0 % (11.5-14.5) Platelet Count 317 x10^3/uL (140-400) Neutrophils (%) (Auto) 88 % (31-73) Lymphocytes (%) (Auto) 7 % (24-48) Monocytes (%) (Auto) 5 % (0-9) Eosinophils (%) (Auto) 0 % (0-3) Basophils (%) (Auto) 0 % (0-3) Neutrophils # (Auto) 8.4 x10^3/uL (1.8-7.7) Lymphocytes # (Auto) 0.6 x10^3/uL (1.0-4.8) Monocytes # (Auto) 0.5 x10^3/uL (0.0-1.1) Eosinophils # (Auto) 0.0 x10^3/uL (0.0-0.7) Basophils # (Auto) 0.0 x10^3/uL (0.0-0.2) Segmented Neutrophils % 85 % (35-66) Band Neutrophils % 2 % (0-9) Lymphocytes % 7 % (24-48) Monocytes % 6 % (0-10) Platelet Estimate Adequate (ADEQUATE) Prothrombin Time 13.2 SEC (11.7-14.0) Prothromb Time International Ratio 1.0 (0.8-1.1) Activated Partial Thromboplast Time 28 SEC (24-38) Sodium Level 134 mmol/L (136-145) Potassium Level 4.1 mmol/L (3.5-5.1) Chloride Level 98 mmol/L (98-107) Carbon Dioxide Level 21 mmol/L (21-32) Anion Gap 15 (6-14) Blood Urea Nitrogen 5 mg/dL (7-20) Creatinine 0.7 mg/dL (0.6-1.0) Estimated GFR (Cockcroft-Gault) 84.0 BUN/Creatinine Ratio 7 (6-20) Glucose Level 125 mg/dL (70-99) Lactic Acid Level 4.2 mmol/L (0.4-2.0) Calcium Level 8.3 mg/dL (8.5-10.1) Magnesium Level 2.0 mg/dL (1.8-2.4) Total Bilirubin 0.4 mg/dL (0.2-1.0) Aspartate Amino Transf (AST/SGOT) 14 U/L (15-37) Alanine Aminotransferase (ALT/SGPT) 14 U/L (14-59) Alkaline Phosphatase 133 U/L (46-116) Ammonia 66 mcmol/L (11-34) Creatine Kinase 118 U/L (26-192) Troponin I Quantitative < 0.017 ng/mL (0.000-0.055) PL-[id number]-Type Natriuretic Peptide 333 pg/mL (0-124) Total Protein 7.6 g/dL (6.4-8.2) Albumin 3.8 g/dL (3.4-5.0) Albumin/Globulin Ratio 1.0 (1.0-1.7) Lipase 44 U/L (73-393) Thyroid Stimulating Hormone (TSH) 0.625 uIU/mL (0.358-3.74) O2 Saturation 98 % (92-99) Arterial Blood pH 7.36 (7.35-7.45) Arterial Blood pCO2 at Patient Temp 30 mmHg (35-46) Arterial Blood pO2 at Patient Temp > 503 mmHg (65-108) Arterial Blood HCO3 17 mmol/L (21-28) Arterial Blood Base Excess -8 mmol/L (-3-3) FiO2 100 Glucose (Fingerstick) 123 mg/dL (70-99) Urine Collection Type Unknown Urine Color Yellow Urine Clarity Clear Urine pH 6.5 Urine Specific [place] 1.015 Urine Protein 30 mg/dL (NEG-TRACE) Urine Glucose (UA) Negative mg/dL (NEG) Urine Ketones (Stick) Negative mg/dL (NEG) Urine Blood Trace (NEG) Urine Nitrite Negative (NEG) Urine Bilirubin Negative (NEG) Urine Urobilinogen Dipstick 1.0 mg/dL (0.2 mg/dL) Urine Leukocyte Esterase Negative (NEG) Urine RBC 1-2 /HPF (0-2) Urine WBC 0 /HPF (0-4) Urine Squamous Epithelial Cells Few /LPF Urine Bacteria 0 /HPF (0-FEW) Urine Mucus Slight /LPF Urine Opiates Screen Neg (NEG) Urine Methadone Screen Neg (NEG) Urine Barbiturates Neg (NEG) Urine Phencyclidine Screen Neg (NEG) Urine Amphetamine/Methamphetamine Neg (NEG) Urine Benzodiazepines Screen Pos (NEG) Urine Cocaine Screen Neg (NEG) Urine Cannabinoids Screen Neg (NEG) Urine Ethyl Alcohol Pos (NEG) Test 07/07/19 14:45 Lactic Acid Level 2.4 mmol/L (0.4-2.0) WARNER HIDALGO MD Jul 07, 2019 16:59
[2019-07-07] MEDS: PROPOFOL 100 ML IV PRN (19:03)
--- NOTE | 2019-07-07 19:42 | NUR ---
Pt admitted to day shift at 1315, admission was not completed by day shift nurse. I am unable to complete some of the admission due to patient being intubated and sedated. No family is present at this time. pt is currently stable will continue to monitor.
[2019-07-07] MEDS ORDERED: MIDAZOLAM 100mg/100ml NS BAG 100 ML IV PRN (20:15)
[2019-07-07] MEDS: FAMOTIDINE 20 MG/2 ML VIAL IVP SCH (21:13)
[2019-07-08] VITALS (24 sets, daily range): BP systolic 103–188; BP diastolic 47–98
[2019-07-08 08:10] LABS: BASO % 1 % (0-3); EOS % 0 % (0-3); HEMATOCRIT 27.1 % (36.0-47.0); HEMOGLOBIN 9.3 g/dL (12.0-15.5); LYMPH # 1.1 x10^3/uL (1.0-4.8); LYMPH % 21 % (24-48); MEAN CORPUSCULAR HEMOGLOBIN 33 pg (25-35); MEAN CORPUSCULAR HGB CONC 34 g/dL (31-37); MEAN CORPUSCULAR VOLUME 97 fL (79-100); MONO # 0.6 x10^3/uL (0.0-1.1); MONO % 12 % (0-9); NEUT # 3.6 x10^3/uL (1.8-7.7); NEUT % 66 % (31-73); PLATELET COUNT 243 x10^3/uL (140-400); RED CELL DISTRIBUTION WIDTH 13.3 % (11.5-14.5); WHITE BLOOD COUNT 5.4 x10^3/uL (4.0-11.0)
[2019-07-08 08:14] LABS: CALCIUM 7.7 mg/dL (8.5-10.1); CREATININE 0.7 mg/dL (0.6-1.0)
[2019-07-08] MEDS: IV 1/2 NORMAL SALINE 1,000 ML IV SCH ×2 (08:54→17:19)
[2019-07-08] MEDS: LACTULOSE 20 GM/30 ML SOLUTION. PO SCH ×2 (08:55→21:25)
[2019-07-08] MEDS: FERROUS SULFATE 325 MG TABLET. PO SCH (08:55)
[2019-07-08] MEDS: IPRATRPIUM/ALBUTEROL 0.5/2.5MG 3 ML NEBU. NEB SCH ×4 (09:09→20:07)
--- NOTE | 2019-07-08 09:19 | PDOC ---
PROGRESS NOTES Chief Complaint Chief Complaint Acute respiratory failure secondary to acute toxic encephalopathy Acute toxic encephalopathy contributed by alcohol and benzodiazepines Lactic acidosis HTN Smoking Unresponsiveness Schizophrenia History of Present Illness History of Present Illness Ms Nuñez is a 64-year-old F w/ PMHx obesity, schizophrenia, hypertension, and depression who was brought in by her son confused and was less responsive. She had a low Zain coma scale and she was intubated in the ED with initial ABG pH 7.36, pCO2 of 30 and a pO2 of 503 with bicarbonate of 17. UDS positive for benzos and alcohol. She does have episodic hospitalizations for confusion. She tolerated the vent well overnight. Improved ABG this morning. Still sedated on ventilatory, FiO2 35%, PEEP 5. K notably 3 this morning. Plan: Weaning trial, CPAP, can likely extubate later today Replace potassium CC time 32 minutes Vitals Vitals Vital Signs Date Time Temp Pulse Resp B/P (MAP) Pulse Ox O2 Delivery O2 Flow Rate FiO2 07/08/19 09:09 100 Ventilator 07/08/19 09:06 95 16 149/73 (98) 07/08/19 07:00 98.8 98.8 Physical Exam General: No acute distress, Other (intubated, sedated) Lungs: Clear Abdomen: Normal bowel sounds, Soft, No tenderness, No hepatosplenomegaly, No masses Extremities: No clubbing, No cyanosis, No edema, Normal pulses, No tenderness/swelling Skin: No rashes, No breakdown, No significant lesion Labs LABS Laboratory Tests Test 07/07/19 10:42 07/07/19 10:46 07/07/19 10:48 07/07/19 11:55 White Blood Count 9.5 x10^3/uL (4.0-11.0) Red Blood Count 3.41 x10^6/uL (3.50-5.40) Hemoglobin 11.3 g/dL (12.0-15.5) Hematocrit 32.6 % (36.0-47.0) Mean Corpuscular Volume 96 fL (79-100) Mean Corpuscular Hemoglobin 33 pg (25-35) Mean Corpuscular Hemoglobin Concent 35 g/dL (31-37) Red Cell Distribution Width 13.0 % (11.5-14.5) Platelet Count 317 x10^3/uL (140-400) Neutrophils (%) (Auto) 88 % (31-73) Lymphocytes (%) (Auto) 7 % (24-48) Monocytes (%) (Auto) 5 % (0-9) Eosinophils (%) (Auto) 0 % (0-3) Basophils (%) (Auto) 0 % (0-3) Neutrophils # (Auto) 8.4 x10^3/uL (1.8-7.7) Lymphocytes # (Auto) 0.6 x10^3/uL (1.0-4.8) Monocytes # (Auto) 0.5 x10^3/uL (0.0-1.1) Eosinophils # (Auto) 0.0 x10^3/uL (0.0-0.7) Basophils # (Auto) 0.0 x10^3/uL (0.0-0.2) Segmented Neutrophils % 85 % (35-66) Band Neutrophils % 2 % (0-9) Lymphocytes % 7 % (24-48) Monocytes % 6 % (0-10) Platelet Estimate Adequate (ADEQUATE) Prothrombin Time 13.2 SEC (11.7-14.0) Prothromb Time International Ratio 1.0 (0.8-1.1) Activated Partial Thromboplast Time 28 SEC (24-38) Sodium Level 134 mmol/L (136-145) Potassium Level 4.1 mmol/L (3.5-5.1) Chloride Level 98 mmol/L (98-107) Carbon Dioxide Level 21 mmol/L (21-32) Anion Gap 15 (6-14) Blood Urea Nitrogen 5 mg/dL (7-20) Creatinine 0.7 mg/dL (0.6-1.0) Estimated GFR (Cockcroft-Gault) 84.0 BUN/Creatinine Ratio 7 (6-20) Glucose Level 125 mg/dL (70-99) Lactic Acid Level 4.2 mmol/L (0.4-2.0) Calcium Level 8.3 mg/dL (8.5-10.1) Magnesium Level 2.0 mg/dL (1.8-2.4) Total Bilirubin 0.4 mg/dL (0.2-1.0) Aspartate Amino Transf (AST/SGOT) 14 U/L (15-37) Alanine Aminotransferase (ALT/SGPT) 14 U/L (14-59) Alkaline Phosphatase 133 U/L (46-116) Ammonia 66 mcmol/L (11-34) Creatine Kinase 118 U/L (26-192) Troponin I Quantitative < 0.017 ng/mL (0.000-0.055) RB-Jgy-A-Type Natriuretic Peptide 333 pg/mL (0-124) Total Protein 7.6 g/dL (6.4-8.2) Albumin 3.8 g/dL (3.4-5.0) Albumin/Globulin Ratio 1.0 (1.0-1.7) Lipase 44 U/L (73-393) Thyroid Stimulating Hormone (TSH) 0.625 uIU/mL (0.358-3.74) O2 Saturation 98 % (92-99) Arterial Blood pH 7.36 (7.35-7.45) Arterial Blood pCO2 at Patient Temp 30 mmHg (35-46) Arterial Blood pO2 at Patient Temp > 503 mmHg (65-108) Arterial Blood HCO3 17 mmol/L (21-28) Arterial Blood Base Excess -8 mmol/L (-3-3) FiO2 100 Glucose (Fingerstick) 123 mg/dL (70-99) Urine Collection Type Unknown Urine Color Yellow Urine Clarity Clear Urine pH 6.5 Urine Specific [place] 1.015 Urine Protein 30 mg/dL (NEG-TRACE) Urine Glucose (UA) Negative mg/dL (NEG) Urine Ketones (Stick) Negative mg/dL (NEG) Urine Blood Trace (NEG) Urine Nitrite Negative (NEG) Urine Bilirubin Negative (NEG) Urine Urobilinogen Dipstick 1.0 mg/dL (0.2 mg/dL) Urine Leukocyte Esterase Negative (NEG) Urine RBC 1-2 /HPF (0-2) Urine WBC 0 /HPF (0-4) Urine Squamous Epithelial Cells Few /LPF Urine Bacteria 0 /HPF (0-FEW) Urine Mucus Slight /LPF Urine Opiates Screen Neg (NEG) Urine Methadone Screen Neg (NEG) Urine Barbiturates Neg (NEG) Urine Phencyclidine Screen Neg (NEG) Urine Amphetamine/Methamphetamine Neg (NEG) Urine Benzodiazepines Screen Pos (NEG) Urine Cocaine Screen Neg (NEG) Urine Cannabinoids Screen Neg (NEG) Urine Ethyl Alcohol Pos (NEG) Test 07/07/19 14:45 07/08/19 04:05 Lactic Acid Level 2.4 mmol/L (0.4-2.0) White Blood Count 5.4 x10^3/uL (4.0-11.0) Red Blood Count 2.80 x10^6/uL (3.50-5.40) Hemoglobin 9.3 g/dL (12.0-15.5) Hematocrit 27.1 % (36.0-47.0) Mean Corpuscular Volume 97 fL (79-100) Mean Corpuscular Hemoglobin 33 pg (25-35) Mean Corpuscular Hemoglobin Concent 34 g/dL (31-37) Red Cell Distribution Width 13.3 % (11.5-14.5) Platelet Count 243 x10^3/uL (140-400) Neutrophils (%) (Auto) 66 % (31-73) Lymphocytes (%) (Auto) 21 % (24-48) Monocytes (%) (Auto) 12 % (0-9) Eosinophils (%) (Auto) 0 % (0-3) Basophils (%) (Auto) 1 % (0-3) Neutrophils # (Auto) 3.6 x10^3/uL (1.8-7.7) Lymphocytes # (Auto) 1.1 x10^3/uL (1.0-4.8) Monocytes # (Auto) 0.6 x10^3/uL (0.0-1.1) Eosinophils # (Auto) 0.0 x10^3/uL (0.0-0.7) Basophils # (Auto) 0.0 x10^3/uL (0.0-0.2) Sodium Level 141 mmol/L (136-145) Potassium Level 3.0 mmol/L (3.5-5.1) Chloride Level 110 mmol/L (98-107) Carbon Dioxide Level 20 mmol/L (21-32) Anion Gap 11 (6-14) Blood Urea Nitrogen 5 mg/dL (7-20) Creatinine 0.7 mg/dL (0.6-1.0) Estimated GFR (Cockcroft-Gault) 84.0 Glucose Level 102 mg/dL (70-99) Calcium Level 7.7 mg/dL (8.5-10.1) Ammonia 36 mcmol/L (11-34) Assessment and Plan Assessmemt and Plan Problems Medical Problems: (1) Anemia Status: Acute (2) Serum ammonia increased Status: Acute (3) Severe sepsis Status: Acute (4) Unresponsive Status: Acute Comment Review of Relevant I have reviewed the following items michelle (where applicable) has been applied. Labs Laboratory Tests Test 07/07/19 10:42 07/07/19 10:46 07/07/19 10:48 07/07/19 11:55 White Blood Count 9.5 x10^3/uL (4.0-11.0) Red Blood Count 3.41 x10^6/uL (3.50-5.40) Hemoglobin 11.3 g/dL (12.0-15.5) Hematocrit 32.6 % (36.0-47.0) Mean Corpuscular Volume 96 fL (79-100) Mean Corpuscular Hemoglobin 33 pg (25-35) Mean Corpuscular Hemoglobin Concent 35 g/dL (31-37) Red Cell Distribution Width 13.0 % (11.5-14.5) Platelet Count 317 x10^3/uL (140-400) Neutrophils (%) (Auto) 88 % (31-73) Lymphocytes (%) (Auto) 7 % (24-48) Monocytes (%) (Auto) 5 % (0-9) Eosinophils (%) (Auto) 0 % (0-3) Basophils (%) (Auto) 0 % (0-3) Neutrophils # (Auto) 8.4 x10^3/uL (1.8-7.7) Lymphocytes # (Auto) 0.6 x10^3/uL (1.0-4.8) Monocytes # (Auto) 0.5 x10^3/uL (0.0-1.1) Eosinophils # (Auto) 0.0 x10^3/uL (0.0-0.7) Basophils # (Auto) 0.0 x10^3/uL (0.0-0.2) Segmented Neutrophils % 85 % (35-66) Band Neutrophils % 2 % (0-9) Lymphocytes % 7 % (24-48) Monocytes % 6 % (0-10) Platelet Estimate Adequate (ADEQUATE) Prothrombin Time 13.2 SEC (11.7-14.0) Prothromb Time International Ratio 1.0 (0.8-1.1) Activated Partial Thromboplast Time 28 SEC (24-38) Sodium Level 134 mmol/L (136-145) Potassium Level 4.1 mmol/L (3.5-5.1) Chloride Level 98 mmol/L (98-107) Carbon Dioxide Level 21 mmol/L (21-32) Anion Gap 15 (6-14) Blood Urea Nitrogen 5 mg/dL (7-20) Creatinine 0.7 mg/dL (0.6-1.0) Estimated GFR (Cockcroft-Gault) 84.0 BUN/Creatinine Ratio 7 (6-20) Glucose Level 125 mg/dL (70-99) Lactic Acid Level 4.2 mmol/L (0.4-2.0) Calcium Level 8.3 mg/dL (8.5-10.1) Magnesium Level 2.0 mg/dL (1.8-2.4) Total Bilirubin 0.4 mg/dL (0.2-1.0) Aspartate Amino Transf (AST/SGOT) 14 U/L (15-37) Alanine Aminotransferase (ALT/SGPT) 14 U/L (14-59) Alkaline Phosphatase 133 U/L (46-116) Ammonia 66 mcmol/L (11-34) Creatine Kinase 118 U/L (26-192) Troponin I Quantitative < 0.017 ng/mL (0.000-0.055) PM-Anx-T-Type Natriuretic Peptide 333 pg/mL (0-124) Total Protein 7.6 g/dL (6.4-8.2) Albumin 3.8 g/dL (3.4-5.0) Albumin/Globulin Ratio 1.0 (1.0-1.7) Lipase 44 U/L (73-393) Thyroid Stimulating Hormone (TSH) 0.625 uIU/mL (0.358-3.74) O2 Saturation 98 % (92-99) Arterial Blood pH 7.36 (7.35-7.45) Arterial Blood pCO2 at Patient Temp 30 mmHg (35-46) Arterial Blood pO2 at Patient Temp > 503 mmHg (65-108) Arterial Blood HCO3 17 mmol/L (21-28) Arterial Blood Base Excess -8 mmol/L (-3-3) FiO2 100 Glucose (Fingerstick) 123 mg/dL (70-99) Urine Collection Type Unknown Urine Color Yellow Urine Clarity Clear Urine pH 6.5 Urine Specific [place] 1.015 Urine Protein 30 mg/dL (NEG-TRACE) Urine Glucose (UA) Negative mg/dL (NEG) Urine Ketones (Stick) Negative mg/dL (NEG) Urine Blood Trace (NEG) Urine Nitrite Negative (NEG) Urine Bilirubin Negative (NEG) Urine Urobilinogen Dipstick 1.0 mg/dL (0.2 mg/dL) Urine Leukocyte Esterase Negative (NEG) Urine RBC 1-2 /HPF (0-2) Urine WBC 0 /HPF (0-4) Urine Squamous Epithelial Cells Few /LPF Urine Bacteria 0 /HPF (0-FEW) Urine Mucus Slight /LPF Urine Opiates Screen Neg (NEG) Urine Methadone Screen Neg (NEG) Urine Barbiturates Neg (NEG) Urine Phencyclidine Screen Neg (NEG) Urine Amphetamine/Methamphetamine Neg (NEG) Urine Benzodiazepines Screen Pos (NEG) Urine Cocaine Screen Neg (NEG) Urine Cannabinoids Screen Neg (NEG) Urine Ethyl Alcohol Pos (NEG) Test 07/07/19 14:45 07/08/19 04:05 Lactic Acid Level 2.4 mmol/L (0.4-2.0) White Blood Count 5.4 x10^3/uL (4.0-11.0) Red Blood Count 2.80 x10^6/uL (3.50-5.40) Hemoglobin 9.3 g/dL (12.0-15.5) Hematocrit 27.1 % (36.0-47.0) Mean Corpuscular Volume 97 fL (79-100) Mean Corpuscular Hemoglobin 33 pg (25-35) Mean Corpuscular Hemoglobin Concent 34 g/dL (31-37) Red Cell Distribution Width 13.3 % (11.5-14.5) Platelet Count 243 x10^3/uL (140-400) Neutrophils (%) (Auto) 66 % (31-73) Lymphocytes (%) (Auto) 21 % (24-48) Monocytes (%) (Auto) 12 % (0-9) Eosinophils (%) (Auto) 0 % (0-3) Basophils (%) (Auto) 1 % (0-3) Neutrophils # (Auto) 3.6 x10^3/uL (1.8-7.7) Lymphocytes # (Auto) 1.1 x10^3/uL (1.0-4.8) Monocytes # (Auto) 0.6 x10^3/uL (0.0-1.1) Eosinophils # (Auto) 0.0 x10^3/uL (0.0-0.7) Basophils # (Auto) 0.0 x10^3/uL (0.0-0.2) Sodium Level 141 mmol/L (136-145) Potassium Level 3.0 mmol/L (3.5-5.1) Chloride Level 110 mmol/L (98-107) Carbon Dioxide Level 20 mmol/L (21-32) Anion Gap 11 (6-14) Blood Urea Nitrogen 5 mg/dL (7-20) Creatinine 0.7 mg/dL (0.6-1.0) Estimated GFR (Cockcroft-Gault) 84.0 Glucose Level 102 mg/dL (70-99) Calcium Level 7.7 mg/dL (8.5-10.1) Ammonia 36 mcmol/L (11-34) Laboratory Tests Test 07/07/19 10:42 07/07/19 10:46 07/07/19 10:48 07/07/19 11:55 White Blood Count 9.5 x10^3/uL (4.0-11.0) Red Blood Count 3.41 x10^6/uL (3.50-5.40) Hemoglobin 11.3 g/dL (12.0-15.5) Hematocrit 32.6 % (36.0-47.0) Mean Corpuscular Volume 96 fL (79-100) Mean Corpuscular Hemoglobin 33 pg (25-35) Mean Corpuscular Hemoglobin Concent 35 g/dL (31-37) Red Cell Distribution Width 13.0 % (11.5-14.5) Platelet Count 317 x10^3/uL (140-400) Neutrophils (%) (Auto) 88 % (31-73) Lymphocytes (%) (Auto) 7 % (24-48) Monocytes (%) (Auto) 5 % (0-9) Eosinophils (%) (Auto) 0 % (0-3) Basophils (%) (Auto) 0 % (0-3) Neutrophils # (Auto) 8.4 x10^3/uL (1.8-7.7) Lymphocytes # (Auto) 0.6 x10^3/uL (1.0-4.8) Monocytes # (Auto) 0.5 x10^3/uL (0.0-1.1) Eosinophils # (Auto) 0.0 x10^3/uL (0.0-0.7) Basophils # (Auto) 0.0 x10^3/uL (0.0-0.2) Segmented Neutrophils % 85 % (35-66) Band Neutrophils % 2 % (0-9) Lymphocytes % 7 % (24-48) Monocytes % 6 % (0-10) Platelet Estimate Adequate (ADEQUATE) Prothrombin Time 13.2 SEC (11.7-14.0) Prothromb Time International Ratio 1.0 (0.8-1.1) Activated Partial Thromboplast Time 28 SEC (24-38) Sodium Level 134 mmol/L (136-145) Potassium Level 4.1 mmol/L (3.5-5.1) Chloride Level 98 mmol/L (98-107) Carbon Dioxide Level 21 mmol/L (21-32) Anion Gap 15 (6-14) Blood Urea Nitrogen 5 mg/dL (7-20) Creatinine 0.7 mg/dL (0.6-1.0) Estimated GFR (Cockcroft-Gault) 84.0 BUN/Creatinine Ratio 7 (6-20) Glucose Level 125 mg/dL (70-99) Lactic Acid Level 4.2 mmol/L (0.4-2.0) Calcium Level 8.3 mg/dL (8.5-10.1) Magnesium Level 2.0 mg/dL (1.8-2.4) Total Bilirubin 0.4 mg/dL (0.2-1.0) Aspartate Amino Transf (AST/SGOT) 14 U/L (15-37) Alanine Aminotransferase (ALT/SGPT) 14 U/L (14-59) Alkaline Phosphatase 133 U/L (46-116) Ammonia 66 mcmol/L (11-34) Creatine Kinase 118 U/L (26-192) Troponin I Quantitative < 0.017 ng/mL (0.000-0.055) LF-Ong-I-Type Natriuretic Peptide 333 pg/mL (0-124) Total Protein 7.6 g/dL (6.4-8.2) Albumin 3.8 g/dL (3.4-5.0) Albumin/Globulin Ratio 1.0 (1.0-1.7) Lipase 44 U/L (73-393) Thyroid Stimulating Hormone (TSH) 0.625 uIU/mL (0.358-3.74) O2 Saturation 98 % (92-99) Arterial Blood pH 7.36 (7.35-7.45) Arterial Blood pCO2 at Patient Temp 30 mmHg (35-46) Arterial Blood pO2 at Patient Temp > 503 mmHg (65-108) Arterial Blood HCO3 17 mmol/L (21-28) Arterial Blood Base Excess -8 mmol/L (-3-3) FiO2 100 Glucose (Fingerstick) 123 mg/dL (70-99) Urine Collection Type Unknown Urine Color Yellow Urine Clarity Clear Urine pH 6.5 Urine Specific [place] 1.015 Urine Protein 30 mg/dL (NEG-TRACE) Urine Glucose (UA) Negative mg/dL (NEG) Urine Ketones (Stick) Negative mg/dL (NEG) Urine Blood Trace (NEG) Urine Nitrite Negative (NEG) Urine Bilirubin Negative (NEG) Urine Urobilinogen Dipstick 1.0 mg/dL (0.2 mg/dL) Urine Leukocyte Esterase Negative (NEG) Urine RBC 1-2 /HPF (0-2) Urine WBC 0 /HPF (0-4) Urine Squamous Epithelial Cells Few /LPF Urine Bacteria 0 /HPF (0-FEW) Urine Mucus Slight /LPF Urine Opiates Screen Neg (NEG) Urine Methadone Screen Neg (NEG) Urine Barbiturates Neg (NEG) Urine Phencyclidine Screen Neg (NEG) Urine Amphetamine/Methamphetamine Neg (NEG) Urine Benzodiazepines Screen Pos (NEG) Urine Cocaine Screen Neg (NEG) Urine Cannabinoids Screen Neg (NEG) Urine Ethyl Alcohol Pos (NEG) Test 07/07/19 14:45 07/08/19 04:05 Lactic Acid Level 2.4 mmol/L (0.4-2.0) White Blood Count 5.4 x10^3/uL (4.0-11.0) Red Blood Count 2.80 x10^6/uL (3.50-5.40) Hemoglobin 9.3 g/dL (12.0-15.5) Hematocrit 27.1 % (36.0-47.0) Mean Corpuscular Volume 97 fL (79-100) Mean Corpuscular Hemoglobin 33 pg (25-35) Mean Corpuscular Hemoglobin Concent 34 g/dL (31-37) Red Cell Distribution Width 13.3 % (11.5-14.5) Platelet Count 243 x10^3/uL (140-400) Neutrophils (%) (Auto) 66 % (31-73) Lymphocytes (%) (Auto) 21 % (24-48) Monocytes (%) (Auto) 12 % (0-9) Eosinophils (%) (Auto) 0 % (0-3) Basophils (%) (Auto) 1 % (0-3) Neutrophils # (Auto) 3.6 x10^3/uL (1.8-7.7) Lymphocytes # (Auto) 1.1 x10^3/uL (1.0-4.8) Monocytes # (Auto) 0.6 x10^3/uL (0.0-1.1) Eosinophils # (Auto) 0.0 x10^3/uL (0.0-0.7) Basophils # (Auto) 0.0 x10^3/uL (0.0-0.2) Sodium Level 141 mmol/L (136-145) Potassium Level 3.0 mmol/L (3.5-5.1) Chloride Level 110 mmol/L (98-107) Carbon Dioxide Level 20 mmol/L (21-32) Anion Gap 11 (6-14) Blood Urea Nitrogen 5 mg/dL (7-20) Creatinine 0.7 mg/dL (0.6-1.0) Estimated GFR (Cockcroft-Gault) 84.0 Glucose Level 102 mg/dL (70-99) Calcium Level 7.7 mg/dL (8.5-10.1) Ammonia 36 mcmol/L (11-34) Medications Current Medications Midazolam HCl 100 ml @ 1 mls/hr 1X ONCE IV Last administered on 07/07/19at 13:52; Start 07/07/19 at 11:15; Stop 07/11/19 at 15:14 Propofol 50 ml @ As Directed STK-MED ONCE IV ; Start 07/07/19 at 11:00; Stop 07/07/19 at 11:01; Status DC Sodium Chloride 1,000 ml @ 1,000 mls/hr 1X ONCE IV Last administered on 07/07/19at 13:56; Start 07/07/19 at 11:15; Stop 07/07/19 at 12:14; Status DC Famotidine (Pepcid Vial) 20 mg QHS IVP Last administered on 07/07/19 21:13; Start 07/07/19 at 21:00 Enoxaparin Sodium (Lovenox 40mg Syringe) 40 mg Q24H SQ Last administered on 07/07/19at 14:10; Start 07/07/19 at 13:00 Labetalol HCl (Normodyne Iv Push) 10 mg PRN Q2HR PRN IVP HYPERTENSION; Start 07/07/19 at 11:45 Fentanyl Citrate (Fentanyl 2ml Vial) 50 mcg PRN Q2HR PRN IVP PAIN; Start 07/07/19 at 11:45 Acetaminophen (Tylenol) 650 mg PRN Q6HRS PRN PEG MILD PAIN / TEMP; Start 07/07/19 at 11:45 Ondansetron HCl (Zofran) 4 mg PRN Q6HRS PRN IVP NAUSEA/VOMITING; Start 07/07/19 at 11:45 Sodium Chloride 1,000 ml @ 100 mls/hr Q10H IV Last administered on 07/08/19 08:54; Start 07/07/19 at 12:00 Ferrous Sulfate (Feosol) 325 mg [id number] PO Last administered on 07/08/19 08:55; Start 07/08/19 at 08:00 Albuterol/ Ipratropium (Duoneb) 3 ml RTQID NEB Last administered on 07/08/19 09:09; Start 07/07/19 at 12:00 Piperacillin Sod/ Tazobactam Sod 3.375 gm/Sodium Chloride 50 ml @ 100 mls/hr 1X ONCE IV Last administered on 07/07/19 13:51; Start 07/07/19 at 12:00; Stop 07/07/19 at 12:29; Status DC Vancomycin HCl 250 ml @ 250 mls/hr 1X ONCE IV ; Start 07/07/19 at 12:00; Stop 07/07/19 at 12:59; Status UNV Sodium Chloride 1,000 ml @ 1,000 mls/hr 1X ONCE IV Last administered on 07/07/19 14:56; Start 07/07/19 at 12:00; Stop 07/07/19 at 12:59; Status DC Vancomycin HCl 1.5 gm/Sodium Chloride 500 ml @ 250 mls/hr 1X ONCE IV Last administered on 12/8/19at 12:46; Start 07/07/19 at 12:00; Stop 07/07/19 at 13:59; Status DC Sodium Chloride 1,000 ml @ 125 mls/hr Q8H IV Last administered on 07/07/19at 15:57; Start 07/07/19 at 11:52; Stop 07/07/19 at 20:58; Status DC Propofol 50 ml @ As Directed STK-MED ONCE IV ; Start 07/07/19 at 12:06; Stop 07/07/19 at 12:07; Status DC Midazolam HCl (Versed) 5 mg 1X ONCE IV Last administered on 07/07/19at 10:58; Start 07/07/19 at 13:30; Stop 07/07/19 at 13:31; Status DC Midazolam HCl (Versed) 5 mg 1X ONCE IV Last administered on 07/07/19at 11:10; Start 07/07/19 at 13:30; Stop 07/07/19 at 13:32; Status DC Succinylcholine Chloride (Anectine) 100 mg 1X ONCE IV Last administered on 07/07/19at 10:51; Start 07/07/19 at 13:45; Stop 07/07/19 at 13:46; Status DC Etomidate (Amidate) 20 mg 1X ONCE IV Last administered on 07/07/19at 10:49; Start 07/07/19 at 13:45; Stop 07/07/19 at 13:46; Status DC Fentanyl Citrate (Fentanyl 2ml Vial) 100 mcg 1X ONCE IVP Last administered on 07/07/19at 11:10; Start 07/07/19 at 13:45; Stop 07/07/19 at 13:46; Status DC Propofol 100 ml @ As Directed STK-MED ONCE IV ; Start 07/07/19 at 14:03; Stop 07/07/19 at 14:03; Status DC Propofol 100 ml @ 0.993 mls/ hr CONT PRN IV SEE I/O RECORD Last administered on 07/07/19at 19:03; Start 07/07/19 at 14:15 Lactulose (Lactulose) 20 gm BID PO Last administered on 07/08/19at 08:55; Start 07/07/19 at 14:15 Midazolam HCl 100 ml @ 5 mls/hr CONT PRN IV SEE I/O RECORD Last administered on 07/07/19at 21:12; Start 07/07/19 at 20:15 Active Scripts Active Keflex (Cephalexin) 500 Mg Capsule 2 Cap PO BID 5 Days Reported [iron] 325 Mg PO Ventolin Hfa Inhaler (Albuterol Sulfate) 18 Gm Hfa.aer.ad 2 Puff INH Q4HRS PRN Pristiq Er (Desvenlafaxine Succinate) 50 Mg Tab.er.24h 1 Tab PO DAILY Amitriptyline Hcl 25 Mg Tablet 1 Tab PO QHS Diazepam 5 Mg Tablet 5 Mg PO TID Gabapentin (Gabapentin) 300 Mg Capsule 300 Mg PO TID Vitals/I & O Vital Sign - Last 24 Hours 07/07/19 07/07/19 07/07/19 07/07/19 10:40 11:10 11:15 12:40 Temp 97.9 97.9 Pulse 112 Resp 12 12 B/P (MAP) 133/89 (104) Pulse Ox 88 97 96 O2 Delivery Room Air Ventilator Ventilator 07/07/19 07/07/19 07/07/19 07/07/19 13:26 13:30 14:00 14:00 Temp 99.0 99.0 Pulse 92 97 Resp 16 16 B/P (MAP) 121/98 (106) 158/55 (89) Pulse Ox 97 100 100 O2 Delivery Ventilator Ventilator Mechanical Ventilator Ventilator 07/07/19 07/07/19 07/07/19 07/07/19 14:30 15:00 15:18 16:00 Pulse 98 102 99 Resp 16 16 16 B/P (MAP) 119/53 (75) 108/71 (83) 103/63 (76) Pulse Ox 100 99 100 100 O2 Delivery Ventilator Ventilator Ventilator Ventilator 07/07/19 07/07/19 07/07/19 07/07/19 16:00 17:00 17:05 18:00 Temp 99.8 99.8 Pulse 101 100 Resp 16 16 B/P (MAP) 115/68 (84) 92/40 (57) Pulse Ox 100 97 100 O2 Delivery Mechanical Ventilator Ventilator Ventilator Ventilator 07/07/19 07/07/19 07/07/19 07/07/19 19:00 19:56 20:00 20:00 Temp 99.1 99.1 Pulse 96 105 Resp 16 18 B/P (MAP) 137/63 (87) 91/70 (77) Pulse Ox 99 100 100 O2 Delivery Ventilator Ventilator Ventilator Mechanical Ventilator 07/07/19 07/07/19 07/07/19 07/07/19 21:00 22:00 23:00 23:59 Pulse 104 102 98 Resp 16 16 16 B/P (MAP) 87/46 (60) 119/70 (86) 127/56 (79) Pulse Ox 100 99 100 O2 Delivery Ventilator Ventilator Ventilator Mechanical Ventilator 07/08/19 07/08/19 07/08/19 07/08/19 00:00 00:00 01:00 01:18 Temp 99.6 99.6 Pulse 88 85 Resp 16 16 B/P (MAP) 105/51 (69) 120/52 (74) Pulse Ox 100 100 100 100 O2 Delivery Ventilator Ventilator Ventilator Ventilator 07/08/19 07/08/19 07/08/19 07/08/19 02:00 03:00 03:36 04:00 Pulse 93 91 Resp 16 16 B/P (MAP) 103/47 (65) 131/62 (85) Pulse Ox 100 100 100 O2 Delivery Ventilator Ventilator Ventilator Mechanical Ventilator 07/08/19 07/08/19 07/08/19 07/08/19 04:00 05:00 05:41 06:00 Temp 99.5 99.5 Pulse 92 86 92 Resp 16 16 16 B/P (MAP) 134/57 (82) 113/54 (73) 141/67 (91) Pulse Ox 100 100 100 100 O2 Delivery Ventilator Ventilator Ventilator Ventilator 07/08/19 07/08/19 07/08/19 07/08/19 07:00 08:31 08:32 09:06 Temp 98.8 98.8 Pulse 93 81 95 Resp 16 16 16 B/P (MAP) 142/67 (92) 125/60 (81) 149/73 (98) Pulse Ox 100 100 100 O2 Delivery Ventilator Ventilator Mechanical Ventilator Ventilator 07/08/19 09:09 Pulse Ox 100 O2 Delivery Ventilator Intake and Output 07/07/19 07/07/19 07/08/19 15:00 23:00 07:00 Intake Total 1550 ml 3679 ml 1148 ml Output Total 950 ml 1075 ml 985 ml Balance 600 ml 2604 ml 163 ml ALICJA ALLEN MD Jul 08, 2019 09:19
--- NOTE | 2019-07-08 09:21 | NUR ---
IP: Pt has a hx of + mrsa screen on 09/23/18. current screen is pending. Pt to be in contact precautions until there are 2 negative screens 7 days apart. Nozin/CHG has been initiated.
[2019-07-08 09:31] LABS: BASE EXCESS ABG -6 mmol/L (-3-3); HCO3 ABG 18 mmol/L (21-28); PCO2 ABG 30 mmHg (35-46); PO2 ABG 153 mmHg (65-108); SAT O2 ABG 97 % (92-99)
[2019-07-08 09:33] LABS: FIO2 ABG 40
[2019-07-08] MEDS: POTASSIUM CHLORIDE 10MEQ 100 ML IV SCH ×2 (10:34→13:11)
--- NOTE | 2019-07-08 10:50 | PDOC ---
PROGRESS NOTES Assessment Problems Medical Problems: (1) Anemia Status: Acute (2) Serum ammonia increased Status: Acute (3) Severe sepsis Status: Acute (4) Unresponsive Status: Acute Metabolic encephalopathy. EEG negative for seizure activity, brain MRI negative. Unresponsiveness. Drug over dose? Respiratory failure. Lactic acidosis. HTN. Smoking. Unresponsiveness event in 09/18 cause unknown. Plan Life support in ICU. Treat medical diseases. Await brain MRI w/wo contrast. Consider infectious disease consult LP may be needed. Subjective None Objective Vital Signs Date Time Temp Pulse Resp B/P (MAP) Pulse Ox O2 Delivery O2 Flow Rate FiO2 07/08/19 10:08 96 16 127/55 (79) 100 Ventilator 07/08/19 07:00 98.8 98.8 Intake and Output 07/08/19 07:00 Intake Total 6377 ml Output Total 3010 ml Balance 3367 ml Intake Oral 0 ml IV Total 3698 ml Other 2679 ml Output Urine Total 2510 ml Gastric Drainage Total 500 ml PHYSICAL EXAM Sedated, on ventilator, no response to voice PERRL. CN: no focal findings. Muscle tone: normal. Muscle strength: no response to stimulation DTR: 1+ Plantar reflex: silent Gait: not examined in bed. Sensory exam: not testable. Cerebellar: not testable Review of Relevant I have reviewed the following items michelle (where applicable) has been applied. Labs Laboratory Tests Test 07/07/19 10:42 07/07/19 10:46 07/07/19 10:48 07/07/19 11:55 White Blood Count 9.5 x10^3/uL (4.0-11.0) Red Blood Count 3.41 x10^6/uL (3.50-5.40) Hemoglobin 11.3 g/dL (12.0-15.5) Hematocrit 32.6 % (36.0-47.0) Mean Corpuscular Volume 96 fL (79-100) Mean Corpuscular Hemoglobin 33 pg (25-35) Mean Corpuscular Hemoglobin Concent 35 g/dL (31-37) Red Cell Distribution Width 13.0 % (11.5-14.5) Platelet Count 317 x10^3/uL (140-400) Neutrophils (%) (Auto) 88 % (31-73) Lymphocytes (%) (Auto) 7 % (24-48) Monocytes (%) (Auto) 5 % (0-9) Eosinophils (%) (Auto) 0 % (0-3) Basophils (%) (Auto) 0 % (0-3) Neutrophils # (Auto) 8.4 x10^3/uL (1.8-7.7) Lymphocytes # (Auto) 0.6 x10^3/uL (1.0-4.8) Monocytes # (Auto) 0.5 x10^3/uL (0.0-1.1) Eosinophils # (Auto) 0.0 x10^3/uL (0.0-0.7) Basophils # (Auto) 0.0 x10^3/uL (0.0-0.2) Segmented Neutrophils % 85 % (35-66) Band Neutrophils % 2 % (0-9) Lymphocytes % 7 % (24-48) Monocytes % 6 % (0-10) Platelet Estimate Adequate (ADEQUATE) Prothrombin Time 13.2 SEC (11.7-14.0) Prothromb Time International Ratio 1.0 (0.8-1.1) Activated Partial Thromboplast Time 28 SEC (24-38) Sodium Level 134 mmol/L (136-145) Potassium Level 4.1 mmol/L (3.5-5.1) Chloride Level 98 mmol/L (98-107) Carbon Dioxide Level 21 mmol/L (21-32) Anion Gap 15 (6-14) Blood Urea Nitrogen 5 mg/dL (7-20) Creatinine 0.7 mg/dL (0.6-1.0) Estimated GFR (Cockcroft-Gault) 84.0 BUN/Creatinine Ratio 7 (6-20) Glucose Level 125 mg/dL (70-99) Lactic Acid Level 4.2 mmol/L (0.4-2.0) Calcium Level 8.3 mg/dL (8.5-10.1) Magnesium Level 2.0 mg/dL (1.8-2.4) Total Bilirubin 0.4 mg/dL (0.2-1.0) Aspartate Amino Transf (AST/SGOT) 14 U/L (15-37) Alanine Aminotransferase (ALT/SGPT) 14 U/L (14-59) Alkaline Phosphatase 133 U/L (46-116) Ammonia 66 mcmol/L (11-34) Creatine Kinase 118 U/L (26-192) Troponin I Quantitative < 0.017 ng/mL (0.000-0.055) FD-Qqb-A-Type Natriuretic Peptide 333 pg/mL (0-124) Total Protein 7.6 g/dL (6.4-8.2) Albumin 3.8 g/dL (3.4-5.0) Albumin/Globulin Ratio 1.0 (1.0-1.7) Lipase 44 U/L (73-393) Thyroid Stimulating Hormone (TSH) 0.625 uIU/mL (0.358-3.74) O2 Saturation 98 % (92-99) Arterial Blood pH 7.36 (7.35-7.45) Arterial Blood pCO2 at Patient Temp 30 mmHg (35-46) Arterial Blood pO2 at Patient Temp > 503 mmHg (65-108) Arterial Blood HCO3 17 mmol/L (21-28) Arterial Blood Base Excess -8 mmol/L (-3-3) FiO2 100 Glucose (Fingerstick) 123 mg/dL (70-99) Urine Collection Type Unknown Urine Color Yellow Urine Clarity Clear Urine pH 6.5 Urine Specific Wilson 1.015 Urine Protein 30 mg/dL (NEG-TRACE) Urine Glucose (UA) Negative mg/dL (NEG) Urine Ketones (Stick) Negative mg/dL (NEG) Urine Blood Trace (NEG) Urine Nitrite Negative (NEG) Urine Bilirubin Negative (NEG) Urine Urobilinogen Dipstick 1.0 mg/dL (0.2 mg/dL) Urine Leukocyte Esterase Negative (NEG) Urine RBC 1-2 /HPF (0-2) Urine WBC 0 /HPF (0-4) Urine Squamous Epithelial Cells Few /LPF Urine Bacteria 0 /HPF (0-FEW) Urine Mucus Slight /LPF Urine Opiates Screen Neg (NEG) Urine Methadone Screen Neg (NEG) Urine Barbiturates Neg (NEG) Urine Phencyclidine Screen Neg (NEG) Urine Amphetamine/Methamphetamine Neg (NEG) Urine Benzodiazepines Screen Pos (NEG) Urine Cocaine Screen Neg (NEG) Urine Cannabinoids Screen Neg (NEG) Urine Ethyl Alcohol Pos (NEG) Test 07/07/19 14:45 07/08/19 04:05 07/08/19 09:20 Lactic Acid Level 2.4 mmol/L (0.4-2.0) White Blood Count 5.4 x10^3/uL (4.0-11.0) Red Blood Count 2.80 x10^6/uL (3.50-5.40) Hemoglobin 9.3 g/dL (12.0-15.5) Hematocrit 27.1 % (36.0-47.0) Mean Corpuscular Volume 97 fL (79-100) Mean Corpuscular Hemoglobin 33 pg (25-35) Mean Corpuscular Hemoglobin Concent 34 g/dL (31-37) Red Cell Distribution Width 13.3 % (11.5-14.5) Platelet Count 243 x10^3/uL (140-400) Neutrophils (%) (Auto) 66 % (31-73) Lymphocytes (%) (Auto) 21 % (24-48) Monocytes (%) (Auto) 12 % (0-9) Eosinophils (%) (Auto) 0 % (0-3) Basophils (%) (Auto) 1 % (0-3) Neutrophils # (Auto) 3.6 x10^3/uL (1.8-7.7) Lymphocytes # (Auto) 1.1 x10^3/uL (1.0-4.8) Monocytes # (Auto) 0.6 x10^3/uL (0.0-1.1) Eosinophils # (Auto) 0.0 x10^3/uL (0.0-0.7) Basophils # (Auto) 0.0 x10^3/uL (0.0-0.2) Sodium Level 141 mmol/L (136-145) Potassium Level 3.0 mmol/L (3.5-5.1) Chloride Level 110 mmol/L (98-107) Carbon Dioxide Level 20 mmol/L (21-32) Anion Gap 11 (6-14) Blood Urea Nitrogen 5 mg/dL (7-20) Creatinine 0.7 mg/dL (0.6-1.0) Estimated GFR (Cockcroft-Gault) 84.0 Glucose Level 102 mg/dL (70-99) Calcium Level 7.7 mg/dL (8.5-10.1) Ammonia 36 mcmol/L (11-34) O2 Saturation 97 % (92-99) Arterial Blood pH 7.41 (7.35-7.45) Arterial Blood pCO2 at Patient Temp 30 mmHg (35-46) Arterial Blood pO2 at Patient Temp 153 mmHg (65-108) Arterial Blood HCO3 18 mmol/L (21-28) Arterial Blood Base Excess -6 mmol/L (-3-3) FiO2 40 Laboratory Tests Test 07/07/19 10:48 07/07/19 11:55 07/07/19 14:45 07/08/19 04:05 Glucose (Fingerstick) 123 mg/dL (70-99) Urine Collection Type Unknown Urine Color Yellow Urine Clarity Clear Urine pH 6.5 Urine Specific Wilson 1.015 Urine Protein 30 mg/dL (NEG-TRACE) Urine Glucose (UA) Negative mg/dL (NEG) Urine Ketones (Stick) Negative mg/dL (NEG) Urine Blood Trace (NEG) Urine Nitrite Negative (NEG) Urine Bilirubin Negative (NEG) Urine Urobilinogen Dipstick 1.0 mg/dL (0.2 mg/dL) Urine Leukocyte Esterase Negative (NEG) Urine RBC 1-2 /HPF (0-2) Urine WBC 0 /HPF (0-4) Urine Squamous Epithelial Cells Few /LPF Urine Bacteria 0 /HPF (0-FEW) Urine Mucus Slight /LPF Urine Opiates Screen Neg (NEG) Urine Methadone Screen Neg (NEG) Urine Barbiturates Neg (NEG) Urine Phencyclidine Screen Neg (NEG) Urine Amphetamine/Methamphetamine Neg (NEG) Urine Benzodiazepines Screen Pos (NEG) Urine Cocaine Screen Neg (NEG) Urine Cannabinoids Screen Neg (NEG) Urine Ethyl Alcohol Pos (NEG) Lactic Acid Level 2.4 mmol/L (0.4-2.0) White Blood Count 5.4 x10^3/uL (4.0-11.0) Red Blood Count 2.80 x10^6/uL (3.50-5.40) Hemoglobin 9.3 g/dL (12.0-15.5) Hematocrit 27.1 % (36.0-47.0) Mean Corpuscular Volume 97 fL (79-100) Mean Corpuscular Hemoglobin 33 pg (25-35) Mean Corpuscular Hemoglobin Concent 34 g/dL (31-37) Red Cell Distribution Width 13.3 % (11.5-14.5) Platelet Count 243 x10^3/uL (140-400) Neutrophils (%) (Auto) 66 % (31-73) Lymphocytes (%) (Auto) 21 % (24-48) Monocytes (%) (Auto) 12 % (0-9) Eosinophils (%) (Auto) 0 % (0-3) Basophils (%) (Auto) 1 % (0-3) Neutrophils # (Auto) 3.6 x10^3/uL (1.8-7.7) Lymphocytes # (Auto) 1.1 x10^3/uL (1.0-4.8) Monocytes # (Auto) 0.6 x10^3/uL (0.0-1.1) Eosinophils # (Auto) 0.0 x10^3/uL (0.0-0.7) Basophils # (Auto) 0.0 x10^3/uL (0.0-0.2) Sodium Level 141 mmol/L (136-145) Potassium Level 3.0 mmol/L (3.5-5.1) Chloride Level 110 mmol/L (98-107) Carbon Dioxide Level 20 mmol/L (21-32) Anion Gap 11 (6-14) Blood Urea Nitrogen 5 mg/dL (7-20) Creatinine 0.7 mg/dL (0.6-1.0) Estimated GFR (Cockcroft-Gault) 84.0 Glucose Level 102 mg/dL (70-99) Calcium Level 7.7 mg/dL (8.5-10.1) Ammonia 36 mcmol/L (11-34) Test 07/08/19 09:20 O2 Saturation 97 % (92-99) Arterial Blood pH 7.41 (7.35-7.45) Arterial Blood pCO2 at Patient Temp 30 mmHg (35-46) Arterial Blood pO2 at Patient Temp 153 mmHg (65-108) Arterial Blood HCO3 18 mmol/L (21-28) Arterial Blood Base Excess -6 mmol/L (-3-3) FiO2 40 Medications Current Medications Midazolam HCl 100 ml @ 1 mls/hr 1X ONCE IV Last administered on 07/07/19at 13:52; Start 07/07/19 at 11:15; Stop 07/11/19 at 15:14 Propofol 50 ml @ As Directed STK-MED ONCE IV ; Start 07/07/19 at 11:00; Stop 07/07/19 at 11:01; Status DC Sodium Chloride 1,000 ml @ 1,000 mls/hr 1X ONCE IV Last administered on 07/07/19at 13:56; Start 07/07/19 at 11:15; Stop 07/07/19 at 12:14; Status DC Famotidine (Pepcid Vial) 20 mg QHS IVP Last administered on 07/07/19at 21:13; Start 07/07/19 at 21:00 Enoxaparin Sodium (Lovenox 40mg Syringe) 40 mg Q24H SQ Last administered on 07/07/19at 14:10; Start 07/07/19 at 13:00 Labetalol HCl (Normodyne Iv Push) 10 mg PRN Q2HR PRN IVP HYPERTENSION; Start 07/07/19 at 11:45 Fentanyl Citrate (Fentanyl 2ml Vial) 50 mcg PRN Q2HR PRN IVP PAIN; Start 07/07/19 at 11:45 Acetaminophen (Tylenol) 650 mg PRN Q6HRS PRN PEG MILD PAIN / TEMP; Start 07/07/19 at 11:45 Ondansetron HCl (Zofran) 4 mg PRN Q6HRS PRN IVP NAUSEA/VOMITING; Start 07/07/19 at 11:45 Sodium Chloride 1,000 ml @ 100 mls/hr Q10H IV Last administered on 07/08/19at 08:54; Start 07/07/19 at 12:00 Ferrous Sulfate (Feosol) 325 mg [id number] PO Last administered on 07/08/19at 08:55; Start 07/08/19 at 08:00 Albuterol/ Ipratropium (Duoneb) 3 ml RTQID NEB Last administered on 07/08/19at 09:09; Start 07/07/19 at 12:00 Piperacillin Sod/ Tazobactam Sod 3.375 gm/Sodium Chloride 50 ml @ 100 mls/hr 1X ONCE IV Last administered on 07/07/19at 13:51; Start 07/07/19 at 12:00; Stop 07/07/19 at 12:29; Status DC Vancomycin HCl 250 ml @ 250 mls/hr 1X ONCE IV ; Start 07/07/19 at 12:00; Stop 07/07/19 at 12:59; Status UNV Sodium Chloride 1,000 ml @ 1,000 mls/hr 1X ONCE IV Last administered on 07/07/19at 14:56; Start 07/07/19 at 12:00; Stop 07/07/19 at 12:59; Status DC Vancomycin HCl 1.5 gm/Sodium Chloride 500 ml @ 250 mls/hr 1X ONCE IV Last administered on 07/07/19at 12:46; Start 07/07/19 at 12:00; Stop 07/07/19 at 13:59; Status DC Sodium Chloride 1,000 ml @ 125 mls/hr Q8H IV Last administered on 07/07/19at 15:57; Start 07/07/19 at 11:52; Stop 07/07/19 at 20:58; Status DC Propofol 50 ml @ As Directed STK-MED ONCE IV ; Start 07/07/19 at 12:06; Stop 07/07/19 at 12:07; Status DC Midazolam HCl (Versed) 5 mg 1X ONCE IV Last administered on 07/07/19 10:58; Start 07/07/19 at 13:30; Stop 07/07/19 at 13:31; Status DC Midazolam HCl (Versed) 5 mg 1X ONCE IV Last administered on 07/07/19at 11:10; Start 07/07/19 at 13:30; Stop 07/07/19 at 13:32; Status DC Succinylcholine Chloride (Anectine) 100 mg 1X ONCE IV Last administered on 07/07/19at 10:51; Start 07/07/19 at 13:45; Stop 07/07/19 at 13:46; Status DC Etomidate (Amidate) 20 mg 1X ONCE IV Last administered on 07/07/19at 10:49; Start 07/07/19 at 13:45; Stop 07/07/19 at 13:46; Status DC Fentanyl Citrate (Fentanyl 2ml Vial) 100 mcg 1X ONCE IVP Last administered on 07/07/19at 11:10; Start 07/07/19 at 13:45; Stop 07/07/19 at 13:46; Status DC Propofol 100 ml @ As Directed STK-MED ONCE IV ; Start 07/07/19 at 14:03; Stop 07/07/19 at 14:03; Status DC Propofol 100 ml @ 0.993 mls/ hr CONT PRN IV SEE I/O RECORD Last administered on 07/07/19at 19:03; Start 07/07/19 at 14:15 Lactulose (Lactulose) 20 gm BID PO Last administered on 12/9/19at 08:55; Start 07/07/19 at 14:15 Midazolam HCl 100 ml @ 5 mls/hr CONT PRN IV SEE I/O RECORD Last administered on 07/07/19at 21:12; Start 07/07/19 at 20:15 Fentanyl Citrate 30 ml @ 0 mls/hr CONT PRN IV SEE PROTOCOL; Start 07/08/19 at 09:15 Potassium Chloride/Water 100 ml @ 100 mls/hr Q1H IV Last administered on 07/08/19at 10:34; Start 07/08/19 at 09:30; Stop 07/08/19 at 11:29 Active Scripts Active Keflex (Cephalexin) 500 Mg Capsule 2 Cap PO BID 5 Days Reported [iron] 325 Mg PO Ventolin Hfa Inhaler (Albuterol Sulfate) 18 Gm Hfa.aer.ad 2 Puff INH Q4HRS PRN Pristiq Er (Desvenlafaxine Succinate) 50 Mg Tab.er.24h 1 Tab PO DAILY Amitriptyline Hcl 25 Mg Tablet 1 Tab PO QHS Diazepam 5 Mg Tablet 5 Mg PO TID Gabapentin (Gabapentin) 300 Mg Capsule 300 Mg PO TID Vitals/I & O Vital Sign - Last 24 Hours 07/07/19 07/07/19 07/07/19 07/07/19 11:10 11:15 12:40 13:26 Resp 12 Pulse Ox 97 96 97 O2 Delivery Ventilator Ventilator Ventilator 07/07/19 07/07/19 07/07/19 07/07/19 13:30 14:00 14:00 14:30 Temp 99.0 99.0 Pulse 92 97 98 Resp 16 16 16 B/P (MAP) 121/98 (106) 158/55 (89) 119/53 (75) Pulse Ox 100 100 100 O2 Delivery Ventilator Mechanical Ventilator Ventilator Ventilator 07/07/19 07/07/19 07/07/19 07/07/19 15:00 15:18 16:00 16:00 Pulse 102 99 Resp 16 16 B/P (MAP) 108/71 (83) 103/63 (76) Pulse Ox 99 100 100 O2 Delivery Ventilator Ventilator Ventilator Mechanical Ventilator 07/07/19 07/07/19 07/07/19 07/07/19 17:00 17:05 18:00 19:00 Temp 99.8 99.1 99.8 99.1 Pulse 101 100 96 Resp 16 16 16 B/P (MAP) 115/68 (84) 92/40 (57) 137/63 (87) Pulse Ox 100 97 100 99 O2 Delivery Ventilator Ventilator Ventilator Ventilator 07/07/19 07/07/19 07/07/19 07/07/19 19:56 20:00 20:00 21:00 Pulse 105 104 Resp 18 16 B/P (MAP) 91/70 (77) 87/46 (60) Pulse Ox 100 100 100 O2 Delivery Ventilator Ventilator Mechanical Ventilator Ventilator 07/07/19 07/07/19 07/07/19 07/08/19 22:00 23:00 23:59 00:00 Pulse 102 98 Resp 16 16 B/P (MAP) 119/70 (86) 127/56 (79) Pulse Ox 99 100 100 O2 Delivery Ventilator Ventilator Mechanical Ventilator Ventilator 07/08/19 07/08/19 07/08/19 07/08/19 00:00 01:00 01:18 02:00 Temp 99.6 99.6 Pulse 88 85 93 Resp 16 16 16 B/P (MAP) 105/51 (69) 120/52 (74) 103/47 (65) Pulse Ox 100 100 100 100 O2 Delivery Ventilator Ventilator Ventilator Ventilator 07/08/19 07/08/19 07/08/19 07/08/19 03:00 03:36 04:00 04:00 Temp 99.5 99.5 Pulse 91 92 Resp 16 16 B/P (MAP) 131/62 (85) 134/57 (82) Pulse Ox 100 100 100 O2 Delivery Ventilator Ventilator Mechanical Ventilator Ventilator 07/08/19 07/08/19 07/08/19 07/08/19 05:00 05:41 06:00 07:00 Temp 98.8 98.8 Pulse 86 92 93 Resp 16 16 16 B/P (MAP) 113/54 (73) 141/67 (91) 142/67 (92) Pulse Ox 100 100 100 100 O2 Delivery Ventilator Ventilator Ventilator Ventilator 07/08/19 07/08/19 07/08/19 07/08/19 08:31 08:32 09:06 09:09 Pulse 81 95 Resp 16 16 B/P (MAP) 125/60 (81) 149/73 (98) Pulse Ox 100 100 100 O2 Delivery Ventilator Mechanical Ventilator Ventilator Ventilator 07/08/19 10:08 Pulse 96 Resp 16 B/P (MAP) 127/55 (79) Pulse Ox 100 O2 Delivery Ventilator Intake and Output 07/07/19 07/07/19 07/08/19 15:00 23:00 07:00 Intake Total 1550 ml 3679 ml 1148 ml Output Total 950 ml 1075 ml 985 ml Balance 600 ml 2604 ml 163 ml SUDEEP HEATH MD Jul 08, 2019 10:50
--- NOTE | 2019-07-08 11:02 | CONS ---
DATE OF CONSULTATION: ATTENDING PHYSICIAN: Dr. Boland. REASON FOR CONSULTATION: Respiratory failure. HISTORY OF PRESENT ILLNESS: The patient is a 64-year-old obese patient with a BMI of 33.8. She was brought into the hospital with altered mental status and also in respiratory distress. She has questionable history of COPD, details of her tobacco history is not available. She has a history of schizophrenia and bipolar disorder. The patient was noted to be initially confused and was less responsive. She had a low [place] coma scale and she was intubated in the Emergency Room. The patient's chest x-ray was reviewed and this is post-intubation. Endotracheal tube is above the jarrod. I do not see any definite infiltrates. CT of her head done yesterday showed no acute intracranial process. Her arterial blood gases post-intubation showed a pH of 7.36, pCO2 of 30 and a pO2 of 503 with bicarbonate of 17. This morning, pH of 7.41, pCO2 of 30 and a pO2 of 153 with bicarbonate of 18 on 40% FiO2. Her urine drug screen was positive for benzos and alcohol. I have been asked to see her for further evaluation. PAST MEDICAL HISTORY: Significant for history of bipolar disorder, schizophrenia, hypertension, and depression. PAST SURGICAL HISTORY: No pertinent surgeries. FAMILY HISTORY: Hypertension. SOCIAL HISTORY: Smoked less than 1 pack per day, details are not available. ALLERGIES: ASPIRIN, MORPHINE AND OXYCODONE. MEDICATIONS: Reviewed as listed in the MRAD. REVIEW OF SYSTEMS: Unable to obtain from the patient. PHYSICAL EXAMINATION: VITAL SIGNS: Reviewed. Stable. Pulse ox 100% on 40% FiO2. HEENT: Sclerae nonicteric. NECK: Supple. LUNGS: With diminished breath sounds. CARDIOVASCULAR: With regular rate and rhythm. ABDOMEN: Soft, nontender. EXTREMITIES: With bilateral pitting edema. LABORATORY DATA: Reviewed. White cell count 5.4, hemoglobin 9.3 and platelets are 243. Chemistries with a BUN 5 and creatinine 0.7. Ammonia level 36. Lactic acid 2.4. IMPRESSION: 1. Acute respiratory failure secondary to acute toxic encephalopathy. 2. Acute toxic encephalopathy contributed by alcohol and benzodiazepines. 3. Possible underlying chronic obstructive pulmonary disease. 4. No definite infiltrates seen on the chest x-ray. 5. No abnormal intracranial findings on CT head. RECOMMENDATIONS: 1. Discussed with the patient's nurse and RT. We will stop all sedation. Her gas exchange has significantly improved. 2. Once awake, we will proceed with CPAP titration and also assess her mental status. 3. Continue bronchodilators. 4. DVT prophylaxis with Lovenox. 5. Follow Neurology recommendations. 6. Stress ulcer prophylaxis. Critical care time 35 minutes. HOANG CHUNG MD DR: MACHELLE/nanette JOB#: [id number] / [id number]
--- NOTE | 2019-07-08 11:27 | EEG ---
DATE OF SERVICE: 07/08/2019 ATTENDING PHYSICIAN: Ana Boland MD OBJECTIVE: The patient is a 64-year-old female found unresponsive on the floor. DESCRIPTION: This is a digital study. Electrodes are placed according to international 10-20 system. Bipolar and referential montages are available. Activation procedures typically include hyperventilation and intermittent photic stimulation. INTERPRETATION: The waking background consists of 5 Hz and 6 Hz, 20-50 microvolt activity, symmetrically distributed over parietooccipital regions and reactive to eye opening. Sleep is not achieved. Hyperventilation is not performed. Intermittent photic stimulation is noncontributory. All computer identified abnormalities are reviewed and none are showing any actual abnormal activity. IMPRESSION: This electroencephalogram obtained in the patient in an obtunded state is abnormal because of a moderate, diffuse disturbance of cerebral activity consistent with any of a variety of toxic or metabolic encephalopathies. There is no focal, paroxysmal, or epileptiform activity. Thank you for letting us help with the patient's care. SUDEEP HEATH MD DR: BETH/nanette JOB#: [id number] / [id number] MILY Goss MD, CHERRIE MD
[2019-07-08 12:41] LABS: BASE EXCESS ABG -4 mmol/L (-3-3); HCO3 ABG 19 mmol/L (21-28); PCO2 ABG 28 mmHg (35-46); PO2 ABG 179 mmHg (65-108); SAT O2 ABG 97 % (92-99)
[2019-07-08 12:43] LABS: FIO2 ABG 40
[2019-07-08] MEDS: ENOXAPARIN 40 MG/0.4 ML SYRINGE. SQ SCH (13:14)
--- NOTE | 2019-07-08 15:06 | RAD ---
Portable chest x-ray compared to similar exam dated 07/07/2019 for ventilated patient. FINDINGS: Endotracheal tube and enteric tubes are appropriately positioned. Coarse interstitial changes of the lungs are stable, with no new lung parenchymal abnormalities. Heart size is unchanged. Postsurgical changes of the shoulders are again noted. IMPRESSION: 1. Stable chest x-ray. Electronically signed by: Ajit Gill MD (07/08/2019 3:03 PM) [id number]
--- NOTE | 2019-07-08 15:12 | NUR ---
SS following for discharge planning. SS reviewed pt chart. Pt is from home and is currently on the vent. SS will continue to follow for discharge planning.
[2019-07-08] MEDS: OLANZapine 5 MG TABLET PO SCH ×2 (17:18→21:25)
[2019-07-08] MEDS: PROPOFOL 100 ML IV PRN ×2 (17:19→21:43)
[2019-07-08] MEDS: POLYVINYL ALCOHOL 1.4% OPHTH SOLUTION 15ML BOTTLE. OU PRN (18:35)
--- NOTE | 2019-07-08 18:35 | NUR ---
Tube feed not started due to no kangaroo pumps available at this time. Patient VSS and comfortably sedated RASS +3. Will continue to monitor patient. Addendum: 07/08/19 at 1846 by JOSE ALBERTO CARUSO RN Patient too agitated for MRI. Will reassess tomorrow.
[2019-07-08] MEDS: FAMOTIDINE 20 MG/2 ML VIAL IVP SCH (21:24)
[2019-07-08] MEDS: MIRTAZAPINE 7.5 MG TABLET. PO SCH (21:25)
[2019-07-09] VITALS (25 sets, daily range): BP systolic 114–190; BP diastolic 54–103
[2019-07-09] MEDS: PROPOFOL 100 ML IV PRN ×2 (02:52→07:27)
[2019-07-09] MEDS: IV 1/2 NORMAL SALINE 1,000 ML IV SCH ×2 (04:23→14:00)
[2019-07-09 05:55] LABS: CALCIUM 8.2 mg/dL (8.5-10.1); CREATININE 0.5 mg/dL (0.6-1.0); GFR 123.8
[2019-07-09 06:00] LABS: POTASSIUM 2.7 mmol/L (3.5-5.1)
[2019-07-09] MEDS ORDERED: POTASSIUM CHL 20MEQ PREMIX 50 ML IV SCH (07:00)
[2019-07-09] MEDS: POTASSIUM CHLORIDE 10MEQ 100 ML IV SCH ×4 (07:15→10:29)
[2019-07-09] MEDS: POLYVINYL ALCOHOL 1.4% OPHTH SOLUTION 15ML BOTTLE. OU PRN (07:27)
[2019-07-09] MEDS: FERROUS SULFATE 325 MG TABLET. PO SCH (08:00)
[2019-07-09] MEDS: IPRATRPIUM/ALBUTEROL 0.5/2.5MG 3 ML NEBU. NEB SCH ×4 (08:27→19:43)
[2019-07-09] MEDS: OLANZapine 5 MG TABLET PO SCH ×2 (08:39→21:00)
[2019-07-09] MEDS: DESVENLAFAXINE 25 MG TAB.ER.24H PO SCH (08:39)
--- NOTE | 2019-07-09 08:40 | NUR ---
Per Dr. Frazier, nonadministered home medications until patient is extubated. Will continue to monitor patient.
[2019-07-09] MEDS: LACTULOSE 20 GM/30 ML SOLUTION. PO SCH ×2 (08:42→21:00)
--- NOTE | 2019-07-09 08:44 | RAD ---
Examination: PORTABLE CHEST 1V History: On Ventilator Comparison/Correlation: 07/08/2019 Portable Chest X-ray Exam Findings: Portable semiupright frontal view chest was obtained. Endotracheal tube is at the jarrod. Nasogastric tube in place. Upper abdominal surgical clips present. Heart size is borderline. No pneumothorax. Subtle pulmonary interstitial thickening is noted. Minimal left costophrenic angle blunting is present. No focal consolidation. Osteopenia. Impression: Small left pleural effusion with adjacent atelectasis. Endotracheal tube at the jarrod. Retraction by 2.5 cm recommended. Electronically signed by: West Hopkins MD (07/09/2019 8:41 AM) [facility]
[2019-07-09 08:46] LABS: BASE EXCESS ABG -5 mmol/L (-3-3); HCO3 ABG 18 mmol/L (21-28); PCO2 ABG 29 mmHg (35-46); PO2 ABG 132 mmHg (65-108); SAT O2 ABG 96 % (92-99)
--- NOTE | 2019-07-09 08:51 | PDOC ---
PROGRESS NOTES Assessment Problems Medical Problems: (1) Anemia Status: Acute (2) Serum ammonia increased Status: Acute (3) Severe sepsis Status: Acute (4) Unresponsive Status: Acute Metabolic encephalopathy. EEG negative for seizure activity, brain MRI pending Unresponsiveness. Drug overdose? Respiratory failure. Lactic acidosis. HTN. Smoking. Unresponsiveness event in 09/18 cause unknown. Plan ICU. Treat medical diseases. Await brain MRI w/wo contrast. Consider infectious disease consult Hold on LP. Subjective None Objective Vital Signs Date Time Temp Pulse Resp B/P (MAP) Pulse Ox O2 Delivery O2 Flow Rate FiO2 07/09/19 08:27 100 Ventilator 07/09/19 08:07 77 16 149/103 (118) 07/09/19 07:10 97.6 97.6 Intake and Output 07/09/19 06:59 Intake Total 2983 ml Output Total 4925 ml Balance -1942 ml Intake Oral 0 ml IV Total 2983 ml Output Urine Total 4675 ml Gastric Drainage Total 250 ml # Bowel Movements 5 PHYSICAL EXAM Sedated, on ventilator, no response to voice PERRL. CN: no focal findings. Muscle tone: normal. Muscle strength: no response to stimulation, there is spontaneous movement of all 4 extremities DTR: 1+ Plantar reflex: silent Gait: not examined in bed. Sensory exam: not testable. Cerebellar: not testable Review of Relevant I have reviewed the following items michelle (where applicable) has been applied. Labs Laboratory Tests Test 07/07/19 10:42 07/07/19 10:46 07/07/19 10:48 07/07/19 11:55 White Blood Count 9.5 x10^3/uL (4.0-11.0) Red Blood Count 3.41 x10^6/uL (3.50-5.40) Hemoglobin 11.3 g/dL (12.0-15.5) Hematocrit 32.6 % (36.0-47.0) Mean Corpuscular Volume 96 fL (79-100) Mean Corpuscular Hemoglobin 33 pg (25-35) Mean Corpuscular Hemoglobin Concent 35 g/dL (31-37) Red Cell Distribution Width 13.0 % (11.5-14.5) Platelet Count 317 x10^3/uL (140-400) Neutrophils (%) (Auto) 88 % (31-73) Lymphocytes (%) (Auto) 7 % (24-48) Monocytes (%) (Auto) 5 % (0-9) Eosinophils (%) (Auto) 0 % (0-3) Basophils (%) (Auto) 0 % (0-3) Neutrophils # (Auto) 8.4 x10^3/uL (1.8-7.7) Lymphocytes # (Auto) 0.6 x10^3/uL (1.0-4.8) Monocytes # (Auto) 0.5 x10^3/uL (0.0-1.1) Eosinophils # (Auto) 0.0 x10^3/uL (0.0-0.7) Basophils # (Auto) 0.0 x10^3/uL (0.0-0.2) Segmented Neutrophils % 85 % (35-66) Band Neutrophils % 2 % (0-9) Lymphocytes % 7 % (24-48) Monocytes % 6 % (0-10) Platelet Estimate Adequate (ADEQUATE) Prothrombin Time 13.2 SEC (11.7-14.0) Prothromb Time International Ratio 1.0 (0.8-1.1) Activated Partial Thromboplast Time 28 SEC (24-38) Sodium Level 134 mmol/L (136-145) Potassium Level 4.1 mmol/L (3.5-5.1) Chloride Level 98 mmol/L (98-107) Carbon Dioxide Level 21 mmol/L (21-32) Anion Gap 15 (6-14) Blood Urea Nitrogen 5 mg/dL (7-20) Creatinine 0.7 mg/dL (0.6-1.0) Estimated GFR (Cockcroft-Gault) 84.0 BUN/Creatinine Ratio 7 (6-20) Glucose Level 125 mg/dL (70-99) Lactic Acid Level 4.2 mmol/L (0.4-2.0) Calcium Level 8.3 mg/dL (8.5-10.1) Magnesium Level 2.0 mg/dL (1.8-2.4) Total Bilirubin 0.4 mg/dL (0.2-1.0) Aspartate Amino Transf (AST/SGOT) 14 U/L (15-37) Alanine Aminotransferase (ALT/SGPT) 14 U/L (14-59) Alkaline Phosphatase 133 U/L (46-116) Ammonia 66 mcmol/L (11-34) Creatine Kinase 118 U/L (26-192) Troponin I Quantitative < 0.017 ng/mL (0.000-0.055) [id number]-Type Natriuretic Peptide 333 pg/mL (0-124) Total Protein 7.6 g/dL (6.4-8.2) Albumin 3.8 g/dL (3.4-5.0) Albumin/Globulin Ratio 1.0 (1.0-1.7) Lipase 44 U/L (73-393) Thyroid Stimulating Hormone (TSH) 0.625 uIU/mL (0.358-3.74) O2 Saturation 98 % (92-99) Arterial Blood pH 7.36 (7.35-7.45) Arterial Blood pCO2 at Patient Temp 30 mmHg (35-46) Arterial Blood pO2 at Patient Temp > 503 mmHg (65-108) Arterial Blood HCO3 17 mmol/L (21-28) Arterial Blood Base Excess -8 mmol/L (-3-3) FiO2 100 Glucose (Fingerstick) 123 mg/dL (70-99) Urine Collection Type Unknown Urine Color Yellow Urine Clarity Clear Urine pH 6.5 Urine Specific [place] 1.015 Urine Protein 30 mg/dL (NEG-TRACE) Urine Glucose (UA) Negative mg/dL (NEG) Urine Ketones (Stick) Negative mg/dL (NEG) Urine Blood Trace (NEG) Urine Nitrite Negative (NEG) Urine Bilirubin Negative (NEG) Urine Urobilinogen Dipstick 1.0 mg/dL (0.2 mg/dL) Urine Leukocyte Esterase Negative (NEG) Urine RBC 1-2 /HPF (0-2) Urine WBC 0 /HPF (0-4) Urine Squamous Epithelial Cells Few /LPF Urine Bacteria 0 /HPF (0-FEW) Urine Mucus Slight /LPF Urine Opiates Screen Neg (NEG) Urine Methadone Screen Neg (NEG) Urine Barbiturates Neg (NEG) Urine Phencyclidine Screen Neg (NEG) Urine Amphetamine/Methamphetamine Neg (NEG) Urine Benzodiazepines Screen Pos (NEG) Urine Cocaine Screen Neg (NEG) Urine Cannabinoids Screen Neg (NEG) Urine Ethyl Alcohol Pos (NEG) Test 07/07/19 14:45 07/08/19 04:05 07/08/19 09:20 07/08/19 12:23 Lactic Acid Level 2.4 mmol/L (0.4-2.0) White Blood Count 5.4 x10^3/uL (4.0-11.0) Red Blood Count 2.80 x10^6/uL (3.50-5.40) Hemoglobin 9.3 g/dL (12.0-15.5) Hematocrit 27.1 % (36.0-47.0) Mean Corpuscular Volume 97 fL (79-100) Mean Corpuscular Hemoglobin 33 pg (25-35) Mean Corpuscular Hemoglobin Concent 34 g/dL (31-37) Red Cell Distribution Width 13.3 % (11.5-14.5) Platelet Count 243 x10^3/uL (140-400) Neutrophils (%) (Auto) 66 % (31-73) Lymphocytes (%) (Auto) 21 % (24-48) Monocytes (%) (Auto) 12 % (0-9) Eosinophils (%) (Auto) 0 % (0-3) Basophils (%) (Auto) 1 % (0-3) Neutrophils # (Auto) 3.6 x10^3/uL (1.8-7.7) Lymphocytes # (Auto) 1.1 x10^3/uL (1.0-4.8) Monocytes # (Auto) 0.6 x10^3/uL (0.0-1.1) Eosinophils # (Auto) 0.0 x10^3/uL (0.0-0.7) Basophils # (Auto) 0.0 x10^3/uL (0.0-0.2) Sodium Level 141 mmol/L (136-145) Potassium Level 3.0 mmol/L (3.5-5.1) Chloride Level 110 mmol/L (98-107) Carbon Dioxide Level 20 mmol/L (21-32) Anion Gap 11 (6-14) Blood Urea Nitrogen 5 mg/dL (7-20) Creatinine 0.7 mg/dL (0.6-1.0) Estimated GFR (Cockcroft-Gault) 84.0 Glucose Level 102 mg/dL (70-99) Calcium Level 7.7 mg/dL (8.5-10.1) Ammonia 36 mcmol/L (11-34) Nasal Screen MRSA (PCR) Negative (Negative) O2 Saturation 97 % (92-99) 97 % (92-99) Arterial Blood pH 7.41 (7.35-7.45) 7.44 (7.35-7.45) Arterial Blood pCO2 at Patient Temp 30 mmHg (35-46) 28 mmHg (35-46) Arterial Blood pO2 at Patient Temp 153 mmHg (65-108) 179 mmHg (65-108) Arterial Blood HCO3 18 mmol/L (21-28) 19 mmol/L (21-28) Arterial Blood Base Excess -6 mmol/L (-3-3) -4 mmol/L (-3-3) FiO2 40 40 Test 07/09/19 05:25 Sodium Level 143 mmol/L (136-145) Potassium Level 2.7 mmol/L (3.5-5.1) Chloride Level 110 mmol/L (98-107) Carbon Dioxide Level 21 mmol/L (21-32) Anion Gap 12 (6-14) Blood Urea Nitrogen 3 mg/dL (7-20) Creatinine 0.5 mg/dL (0.6-1.0) Estimated GFR (Cockcroft-Gault) 123.8 Glucose Level 95 mg/dL (70-99) Calcium Level 8.2 mg/dL (8.5-10.1) Magnesium Level 2.0 mg/dL (1.8-2.4) Ammonia 27 mcmol/L (11-34) Laboratory Tests Test 07/08/19 09:20 07/08/19 12:23 07/09/19 05:25 Nasal Screen MRSA (PCR) Negative (Negative) O2 Saturation 97 % (92-99) 97 % (92-99) Arterial Blood pH 7.41 (7.35-7.45) 7.44 (7.35-7.45) Arterial Blood pCO2 at Patient Temp 30 mmHg (35-46) 28 mmHg (35-46) Arterial Blood pO2 at Patient Temp 153 mmHg (65-108) 179 mmHg (65-108) Arterial Blood HCO3 18 mmol/L (21-28) 19 mmol/L (21-28) Arterial Blood Base Excess -6 mmol/L (-3-3) -4 mmol/L (-3-3) FiO2 40 40 Sodium Level 143 mmol/L (136-145) Potassium Level 2.7 mmol/L (3.5-5.1) Chloride Level 110 mmol/L (98-107) Carbon Dioxide Level 21 mmol/L (21-32) Anion Gap 12 (6-14) Blood Urea Nitrogen 3 mg/dL (7-20) Creatinine 0.5 mg/dL (0.6-1.0) Estimated GFR (Cockcroft-Gault) 123.8 Glucose Level 95 mg/dL (70-99) Calcium Level 8.2 mg/dL (8.5-10.1) Magnesium Level 2.0 mg/dL (1.8-2.4) Ammonia 27 mcmol/L (11-34) Microbiology 07/07/19 Blood Culture - Preliminary, Resulted NO GROWTH AFTER 1 DAY Medications Current Medications Midazolam HCl 100 ml @ 1 mls/hr 1X ONCE IV Last administered on 07/07/19at 13:52; Start 07/07/19 at 11:15; Stop 07/09/19 at 07:38; Status DC Propofol 50 ml @ As Directed STK-MED ONCE IV ; Start 07/07/19 at 11:00; Stop 07/07/19 at 11:01; Status DC Sodium Chloride 1,000 ml @ 1,000 mls/hr 1X ONCE IV Last administered on 07/07/19at 13:56; Start 07/07/19 at 11:15; Stop 07/07/19 at 12:14; Status DC Famotidine (Pepcid Vial) 20 mg QHS IVP Last administered on 07/08/19at 21:24; Start 07/07/19 at 21:00 Enoxaparin Sodium (Lovenox 40mg Syringe) 40 mg Q24H SQ Last administered on 07/08/19at 13:14; Start 07/07/19 at 13:00 Labetalol HCl (Normodyne Iv Push) 10 mg PRN Q2HR PRN IVP HYPERTENSION; Start 07/07/19 at 11:45 Fentanyl Citrate (Fentanyl 2ml Vial) 50 mcg PRN Q2HR PRN IVP PAIN; Start at 11:45 Acetaminophen (Tylenol) 650 mg PRN Q6HRS PRN PEG MILD PAIN / TEMP; Start 07/07/19 at 11:45 Ondansetron HCl (Zofran) 4 mg PRN Q6HRS PRN IVP NAUSEA/VOMITING; Start 07/07/19 at 11:45 Sodium Chloride 1,000 ml @ 100 mls/hr Q10H IV Last administered on 07/09/19at 04:23; Start 07/07/19 at 12:00 Ferrous Sulfate (Feosol) 325 mg DAILYWBKFT PO Last administered on 07/08/19at 08:55; Start 07/08/19 at 08:00 Albuterol/ Ipratropium (Duoneb) 3 ml RTQID NEB Last administered on 07/09/19at 08:27; Start 07/07/19 at 12:00 Piperacillin Sod/ Tazobactam Sod 3.375 gm/Sodium Chloride 50 ml @ 100 mls/hr 1X ONCE IV Last administered on 07/07/19at 13:51; Start 07/07/19 at 12:00; Stop 07/07/19 at 12:29; Status DC Vancomycin HCl 250 ml @ 250 mls/hr 1X ONCE IV ; Start 07/07/19 at 12:00; Stop 07/07/19 at 12:59; Status UNV Sodium Chloride 1,000 ml @ 1,000 mls/hr 1X ONCE IV Last administered on 07/07/19at 14:56; Start 07/07/19 at 12:00; Stop 07/07/19 at 12:59; Status DC Vancomycin HCl 1.5 gm/Sodium Chloride 500 ml @ 250 mls/hr 1X ONCE IV Last administered on 07/07/19at 12:46; Start 07/07/19 at 12:00; Stop 07/07/19 at 13:59; Status DC Sodium Chloride 1,000 ml @ 125 mls/hr Q8H IV Last administered on 07/07/19at 15:57; Start 07/07/19 at 11:52; Stop 07/07/19 at 20:58; Status DC Propofol 50 ml @ As Directed STK-MED ONCE IV ; Start 07/07/19 at 12:06; Stop 07/07/19 at 12:07; Status DC Midazolam HCl (Versed) 5 mg 1X ONCE IV Last administered on 07/07/19at 10:58; Start 07/07/19 at 13:30; Stop 07/07/19 at 13:31; Status DC Midazolam HCl (Versed) 5 mg 1X ONCE IV Last administered on 07/07/19at 11:10; Start 07/07/19 at 13:30; Stop 07/07/19 at 13:32; Status DC Succinylcholine Chloride (Anectine) 100 mg 1X ONCE IV Last administered on 07/07/19 10:51; Start 07/07/19 at 13:45; Stop 07/07/19 at 13:46; Status DC Etomidate (Amidate) 20 mg 1X ONCE IV Last administered on 07/07/19 10:49; Start 07/07/19 at 13:45; Stop 07/07/19 at 13:46; Status DC Fentanyl Citrate (Fentanyl 2ml Vial) 100 mcg 1X ONCE IVP Last administered on 07/07/19 11:10; Start 07/07/19 at 13:45; Stop 07/07/19 at 13:46; Status DC Propofol 100 ml @ As Directed STK-MED ONCE IV ; Start 07/07/19 at 14:03; Stop 07/07/19 at 14:03; Status DC Propofol 100 ml @ 0.993 mls/ hr CONT PRN IV SEE I/O RECORD Last administered on 07/09/19at 07:27; Start 07/07/19 at 14:15 Lactulose (Lactulose) 20 gm BID PO Last administered on 07/08/19 21:25; Start 07/07/19 at 14:15 Midazolam HCl 100 ml @ 5 mls/hr CONT PRN IV SEE I/O RECORD Last administered on 07/07/19at 21:12; Start 07/07/19 at 20:15 Fentanyl Citrate 30 ml @ 0 mls/hr CONT PRN IV SEE PROTOCOL; Start 07/08/19 at 09:15 Potassium Chloride/Water 100 ml @ 100 mls/hr Q1H IV Last administered on 07/08/19at 13:11; Start 07/08/19 at 09:30; Stop 07/08/19 at 11:29; Status DC Olanzapine (ZyPREXA) 5 mg BID PO Last administered on 07/08/19 21:25; Start 07/08/19 at 15:00 Mirtazapine (Remeron) 7.5 mg QHS PO Last administered on 07/08/19 21:25; Start 07/08/19 at 21:00 Non-Formulary Medication (Desvenlafaxine Succinate (Pristiq Er)) 1 tab DAILY PO ; Start 07/09/19 at 09:00; Status UNV Desvenlafaxine Succinate (Pristiq Er) 25 mg DAILY PO ; Start 07/09/19 at 09:00 Artificial Tears (Artificial Tears) 1 drop PRN Q15MIN PRN OU DRY EYE Last administered on 07/09/19at 07:27; Start 07/08/19 at 17:45 Potassium Chloride/Water 50 ml @ 50 mls/hr Q1H IV ; Start 07/09/19 at 07:00; Stop 07/09/19 at 08:59; Status UNV Potassium Chloride/Water 100 ml @ 100 mls/hr Q1H IV Last administered on 07/09/19at 08:06; Start 07/09/19 at 07:00; Stop 07/09/19 at 10:59 Active Scripts Active Keflex (Cephalexin) 500 Mg Capsule 2 Cap PO BID 5 Days Reported [iron] 325 Mg PO Ventolin Hfa Inhaler (Albuterol Sulfate) 18 Gm Hfa.aer.ad 2 Puff INH Q4HRS PRN Pristiq Er (Desvenlafaxine Succinate) 50 Mg Tab.er.24h 1 Tab PO DAILY Amitriptyline Hcl 25 Mg Tablet 1 Tab PO QHS Diazepam 5 Mg Tablet 5 Mg PO TID Gabapentin (Gabapentin) 300 Mg Capsule 300 Mg PO TID Vitals/I & O Vital Sign - Last 24 Hours 07/08/19 07/08/19 07/08/19 07/08/19 09:06 09:09 10:08 11:14 Pulse 95 96 97 Resp 16 16 16 B/P (MAP) 149/73 (98) 127/55 (79) 170/83 (112) Pulse Ox 100 100 100 100 O2 Delivery Ventilator Ventilator Ventilator Ventilator 07/08/19 07/08/19 07/08/19 07/08/19 11:40 12:00 12:00 12:23 Temp 98.7 98.7 Pulse 96 Resp 21 B/P (MAP) 154/65 (94) Pulse Ox 100 100 O2 Delivery Ventilator Mechanical Ventilator Ventilator Ventilator 07/08/19 07/08/19 07/08/19 07/08/19 13:00 13:25 14:08 15:00 Pulse 79 107 97 Resp 16 16 16 B/P (MAP) 175/81 (112) 188/98 (128) 163/87 (112) Pulse Ox 99 100 100 O2 Delivery Ventilator Ventilator Ventilator Ventilator 07/08/19 07/08/19 07/08/19 07/08/19 16:00 16:00 16:33 17:11 Temp 98.5 98.5 Pulse 90 101 Resp 16 16 B/P (MAP) 141/62 (88) 153/76 (101) Pulse Ox 100 100 100 O2 Delivery Mechanical Ventilator Ventilator Ventilator Ventilator 07/08/19 07/08/19 07/08/19 07/08/19 18:06 18:11 19:00 20:00 Temp 98.8 98.8 Pulse 94 83 79 Resp 16 16 16 B/P (MAP) 129/61 (83) 124/64 (84) 145/72 (96) Pulse Ox 100 100 100 100 O2 Delivery Ventilator Ventilator Ventilator Ventilator 07/08/19 07/08/19 07/08/19 07/08/19 20:00 20:07 21:00 22:00 Pulse 76 78 Resp 16 16 B/P (MAP) 139/71 (93) 131/64 (86) Pulse Ox 100 100 100 O2 Delivery Mechanical Ventilator Ventilator Ventilator Ventilator 07/08/19 07/08/19 07/08/19 07/09/19 22:12 23:00 23:59 00:00 Temp 98.6 98.6 Pulse 73 72 Resp 16 16 B/P (MAP) 145/71 (95) 141/69 (93) Pulse Ox 100 100 100 O2 Delivery Ventilator Ventilator Mechanical Ventilator Ventilator 07/09/19 07/09/19 07/09/19 07/09/19 00:28 01:00 02:00 02:14 Pulse 75 66 Resp 16 16 B/P (MAP) 160/80 (106) 148/66 (93) Pulse Ox 100 100 100 100 O2 Delivery Ventilator Ventilator Ventilator Ventilator 07/09/19 07/09/19 07/09/19 07/09/19 03:00 04:00 04:00 04:36 Temp 97.6 97.6 Pulse 71 69 Resp 16 16 B/P (MAP) 143/64 (90) 136/68 (90) Pulse Ox 100 100 100 O2 Delivery Ventilator Mechanical Ventilator Ventilator Ventilator 07/09/19 07/09/19 07/09/19 07/09/19 05:00 06:00 07:10 07:56 Temp 97.6 97.6 Pulse 63 59 68 Resp 16 16 16 B/P (MAP) 114/54 (74) 144/74 (97) 165/69 (101) Pulse Ox 100 100 100 O2 Delivery Ventilator Ventilator Ventilator Mechanical Ventilator 07/09/19 07/09/19 08:07 08:27 Pulse 77 Resp 16 B/P (MAP) 149/103 (118) Pulse Ox 100 100 O2 Delivery Ventilator Ventilator Intake and Output 07/08/19 07/08/19 07/09/19 14:59 22:59 06:59 Intake Total 200 ml 1282 ml 1501 ml Output Total 2200 ml 1750 ml 975 ml Balance -2000 ml -468 ml 526 ml SUDEEP HEATH MD Jul 09, 2019 08:51
[2019-07-09] MEDS ORDERED: NON FORMULARY ITEM (Desvenlafaxine Succinate (Pristiq Er) 1 TAB) PO SCH (09:00)
[2019-07-09 09:17] LABS: FIO2 ABG 40
--- NOTE | 2019-07-09 09:52 | PDOC ---
PROGRESS NOTES Chief Complaint Chief Complaint Acute respiratory failure secondary to acute toxic encephalopathy Acute toxic encephalopathy contributed by alcohol and benzodiazepines Lactic acidosis HTN Smoking Unresponsiveness Schizophrenia History of Present Illness History of Present Illness Ms Nuñez is a 64-year-old F w/ PMHx obesity, schizophrenia, hypertension, and depression who was brought in by her son confused and was less responsive. She had a low Zain coma scale and she was intubated in the ED with initial ABG pH 7.36, pCO2 of 30 and a pO2 of 503 with bicarbonate of 17. UDS positive for benzos and alcohol. She does have episodic hospitalizations for confusion. She tolerated the vent well overnight. Improved ABG this morning. Still sedated on ventilatory, FiO2 35%, PEEP 5. K notably 2.7 this morning despite replacement on 07/08. Plan: Weaning trial, CPAP, can likely extubate later today Replace potassium CC time 32 minutes Vitals Vitals Vital Signs Date Time Temp Pulse Resp B/P (MAP) Pulse Ox O2 Delivery O2 Flow Rate FiO2 07/09/19 09:18 100 Ventilator 07/09/19 09:08 88 16 159/76 (103) 07/09/19 07:10 97.6 97.6 Physical Exam General: No acute distress, Other (intubated, sedated) Lungs: Clear Abdomen: Normal bowel sounds, Soft, No tenderness, No hepatosplenomegaly, No masses Extremities: No clubbing, No cyanosis, No edema, Normal pulses, No tenderness/swelling Skin: No rashes, No breakdown, No significant lesion Labs LABS Laboratory Tests Test 07/08/19 12:23 07/09/19 05:25 07/09/19 08:44 O2 Saturation 97 % (92-99) 96 % (92-99) Arterial Blood pH 7.44 (7.35-7.45) 7.42 (7.35-7.45) Arterial Blood pCO2 at Patient Temp 28 mmHg (35-46) 29 mmHg (35-46) Arterial Blood pO2 at Patient Temp 179 mmHg (65-108) 132 mmHg (65-108) Arterial Blood HCO3 19 mmol/L (21-28) 18 mmol/L (21-28) Arterial Blood Base Excess -4 mmol/L (-3-3) -5 mmol/L (-3-3) FiO2 40 40 Sodium Level 143 mmol/L (136-145) Potassium Level 2.7 mmol/L (3.5-5.1) Chloride Level 110 mmol/L (98-107) Carbon Dioxide Level 21 mmol/L (21-32) Anion Gap 12 (6-14) Blood Urea Nitrogen 3 mg/dL (7-20) Creatinine 0.5 mg/dL (0.6-1.0) Estimated GFR (Cockcroft-Gault) 123.8 Glucose Level 95 mg/dL (70-99) Calcium Level 8.2 mg/dL (8.5-10.1) Magnesium Level 2.0 mg/dL (1.8-2.4) Ammonia 27 mcmol/L (11-34) Assessment and Plan Assessmemt and Plan Problems Medical Problems: (1) Anemia Status: Acute (2) Serum ammonia increased Status: Acute (3) Severe sepsis Status: Acute (4) Unresponsive Status: Acute Comment Review of Relevant I have reviewed the following items michelle (where applicable) has been applied. Labs Laboratory Tests Test 07/07/19 10:42 07/07/19 10:46 07/07/19 10:48 07/07/19 11:55 White Blood Count 9.5 x10^3/uL (4.0-11.0) Red Blood Count 3.41 x10^6/uL (3.50-5.40) Hemoglobin 11.3 g/dL (12.0-15.5) Hematocrit 32.6 % (36.0-47.0) Mean Corpuscular Volume 96 fL (79-100) Mean Corpuscular Hemoglobin 33 pg (25-35) Mean Corpuscular Hemoglobin Concent 35 g/dL (31-37) Red Cell Distribution Width 13.0 % (11.5-14.5) Platelet Count 317 x10^3/uL (140-400) Neutrophils (%) (Auto) 88 % (31-73) Lymphocytes (%) (Auto) 7 % (24-48) Monocytes (%) (Auto) 5 % (0-9) Eosinophils (%) (Auto) 0 % (0-3) Basophils (%) (Auto) 0 % (0-3) Neutrophils # (Auto) 8.4 x10^3/uL (1.8-7.7) Lymphocytes # (Auto) 0.6 x10^3/uL (1.0-4.8) Monocytes # (Auto) 0.5 x10^3/uL (0.0-1.1) Eosinophils # (Auto) 0.0 x10^3/uL (0.0-0.7) Basophils # (Auto) 0.0 x10^3/uL (0.0-0.2) Segmented Neutrophils % 85 % (35-66) Band Neutrophils % 2 % (0-9) Lymphocytes % 7 % (24-48) Monocytes % 6 % (0-10) Platelet Estimate Adequate (ADEQUATE) Prothrombin Time 13.2 SEC (11.7-14.0) Prothromb Time International Ratio 1.0 (0.8-1.1) Activated Partial Thromboplast Time 28 SEC (24-38) Sodium Level 134 mmol/L (136-145) Potassium Level 4.1 mmol/L (3.5-5.1) Chloride Level 98 mmol/L (98-107) Carbon Dioxide Level 21 mmol/L (21-32) Anion Gap 15 (6-14) Blood Urea Nitrogen 5 mg/dL (7-20) Creatinine 0.7 mg/dL (0.6-1.0) Estimated GFR (Cockcroft-Gault) 84.0 BUN/Creatinine Ratio 7 (6-20) Glucose Level 125 mg/dL (70-99) Lactic Acid Level 4.2 mmol/L (0.4-2.0) Calcium Level 8.3 mg/dL (8.5-10.1) Magnesium Level 2.0 mg/dL (1.8-2.4) Total Bilirubin 0.4 mg/dL (0.2-1.0) Aspartate Amino Transf (AST/SGOT) 14 U/L (15-37) Alanine Aminotransferase (ALT/SGPT) 14 U/L (14-59) Alkaline Phosphatase 133 U/L (46-116) Ammonia 66 mcmol/L (11-34) Creatine Kinase 118 U/L (26-192) Troponin I Quantitative < 0.017 ng/mL (0.000-0.055) MV-Seb-K-Type Natriuretic Peptide 333 pg/mL (0-124) Total Protein 7.6 g/dL (6.4-8.2) Albumin 3.8 g/dL (3.4-5.0) Albumin/Globulin Ratio 1.0 (1.0-1.7) Lipase 44 U/L (73-393) Thyroid Stimulating Hormone (TSH) 0.625 uIU/mL (0.358-3.74) O2 Saturation 98 % (92-99) Arterial Blood pH 7.36 (7.35-7.45) Arterial Blood pCO2 at Patient Temp 30 mmHg (35-46) Arterial Blood pO2 at Patient Temp > 503 mmHg (65-108) Arterial Blood HCO3 17 mmol/L (21-28) Arterial Blood Base Excess -8 mmol/L (-3-3) FiO2 100 Glucose (Fingerstick) 123 mg/dL (70-99) Urine Collection Type Unknown Urine Color Yellow Urine Clarity Clear Urine pH 6.5 Urine Specific [place] 1.015 Urine Protein 30 mg/dL (NEG-TRACE) Urine Glucose (UA) Negative mg/dL (NEG) Urine Ketones (Stick) Negative mg/dL (NEG) Urine Blood Trace (NEG) Urine Nitrite Negative (NEG) Urine Bilirubin Negative (NEG) Urine Urobilinogen Dipstick 1.0 mg/dL (0.2 mg/dL) Urine Leukocyte Esterase Negative (NEG) Urine RBC 1-2 /HPF (0-2) Urine WBC 0 /HPF (0-4) Urine Squamous Epithelial Cells Few /LPF Urine Bacteria 0 /HPF (0-FEW) Urine Mucus Slight /LPF Urine Opiates Screen Neg (NEG) Urine Methadone Screen Neg (NEG) Urine Barbiturates Neg (NEG) Urine Phencyclidine Screen Neg (NEG) Urine Amphetamine/Methamphetamine Neg (NEG) Urine Benzodiazepines Screen Pos (NEG) Urine Cocaine Screen Neg (NEG) Urine Cannabinoids Screen Neg (NEG) Urine Ethyl Alcohol Pos (NEG) Test 07/07/19 14:45 07/08/19 04:05 07/08/19 09:20 07/08/19 12:23 Lactic Acid Level 2.4 mmol/L (0.4-2.0) White Blood Count 5.4 x10^3/uL (4.0-11.0) Red Blood Count 2.80 x10^6/uL (3.50-5.40) Hemoglobin 9.3 g/dL (12.0-15.5) Hematocrit 27.1 % (36.0-47.0) Mean Corpuscular Volume 97 fL (79-100) Mean Corpuscular Hemoglobin 33 pg (25-35) Mean Corpuscular Hemoglobin Concent 34 g/dL (31-37) Red Cell Distribution Width 13.3 % (11.5-14.5) Platelet Count 243 x10^3/uL (140-400) Neutrophils (%) (Auto) 66 % (31-73) Lymphocytes (%) (Auto) 21 % (24-48) Monocytes (%) (Auto) 12 % (0-9) Eosinophils (%) (Auto) 0 % (0-3) Basophils (%) (Auto) 1 % (0-3) Neutrophils # (Auto) 3.6 x10^3/uL (1.8-7.7) Lymphocytes # (Auto) 1.1 x10^3/uL (1.0-4.8) Monocytes # (Auto) 0.6 x10^3/uL (0.0-1.1) Eosinophils # (Auto) 0.0 x10^3/uL (0.0-0.7) Basophils # (Auto) 0.0 x10^3/uL (0.0-0.2) Sodium Level 141 mmol/L (136-145) Potassium Level 3.0 mmol/L (3.5-5.1) Chloride Level 110 mmol/L (98-107) Carbon Dioxide Level 20 mmol/L (21-32) Anion Gap 11 (6-14) Blood Urea Nitrogen 5 mg/dL (7-20) Creatinine 0.7 mg/dL (0.6-1.0) Estimated GFR (Cockcroft-Gault) 84.0 Glucose Level 102 mg/dL (70-99) Calcium Level 7.7 mg/dL (8.5-10.1) Ammonia 36 mcmol/L (11-34) Nasal Screen MRSA (PCR) Negative (Negative) O2 Saturation 97 % (92-99) 97 % (92-99) Arterial Blood pH 7.41 (7.35-7.45) 7.44 (7.35-7.45) Arterial Blood pCO2 at Patient Temp 30 mmHg (35-46) 28 mmHg (35-46) Arterial Blood pO2 at Patient Temp 153 mmHg (65-108) 179 mmHg (65-108) Arterial Blood HCO3 18 mmol/L (21-28) 19 mmol/L (21-28) Arterial Blood Base Excess -6 mmol/L (-3-3) -4 mmol/L (-3-3) FiO2 40 40 Test 07/09/19 05:25 07/09/19 08:44 Sodium Level 143 mmol/L (136-145) Potassium Level 2.7 mmol/L (3.5-5.1) Chloride Level 110 mmol/L (98-107) Carbon Dioxide Level 21 mmol/L (21-32) Anion Gap 12 (6-14) Blood Urea Nitrogen 3 mg/dL (7-20) Creatinine 0.5 mg/dL (0.6-1.0) Estimated GFR (Cockcroft-Gault) 123.8 Glucose Level 95 mg/dL (70-99) Calcium Level 8.2 mg/dL (8.5-10.1) Magnesium Level 2.0 mg/dL (1.8-2.4) Ammonia 27 mcmol/L (11-34) O2 Saturation 96 % (92-99) Arterial Blood pH 7.42 (7.35-7.45) Arterial Blood pCO2 at Patient Temp 29 mmHg (35-46) Arterial Blood pO2 at Patient Temp 132 mmHg (65-108) Arterial Blood HCO3 18 mmol/L (21-28) Arterial Blood Base Excess -5 mmol/L (-3-3) FiO2 40 Laboratory Tests Test 07/08/19 12:23 07/09/19 05:25 07/09/19 08:44 O2 Saturation 97 % (92-99) 96 % (92-99) Arterial Blood pH 7.44 (7.35-7.45) 7.42 (7.35-7.45) Arterial Blood pCO2 at Patient Temp 28 mmHg (35-46) 29 mmHg (35-46) Arterial Blood pO2 at Patient Temp 179 mmHg (65-108) 132 mmHg (65-108) Arterial Blood HCO3 19 mmol/L (21-28) 18 mmol/L (21-28) Arterial Blood Base Excess -4 mmol/L (-3-3) -5 mmol/L (-3-3) FiO2 40 40 Sodium Level 143 mmol/L (136-145) Potassium Level 2.7 mmol/L (3.5-5.1) Chloride Level 110 mmol/L (98-107) Carbon Dioxide Level 21 mmol/L (21-32) Anion Gap 12 (6-14) Blood Urea Nitrogen 3 mg/dL (7-20) Creatinine 0.5 mg/dL (0.6-1.0) Estimated GFR (Cockcroft-Gault) 123.8 Glucose Level 95 mg/dL (70-99) Calcium Level 8.2 mg/dL (8.5-10.1) Magnesium Level 2.0 mg/dL (1.8-2.4) Ammonia 27 mcmol/L (11-34) Microbiology 07/07/19 Blood Culture - Preliminary, Resulted NO GROWTH AFTER 1 DAY Medications Current Medications Midazolam HCl 100 ml @ 1 mls/hr 1X ONCE IV Last administered on 07/07/19at 13:52; Start 07/07/19 at 11:15; Stop 07/09/19 at 07:38; Status DC Propofol 50 ml @ As Directed STK-MED ONCE IV ; Start 07/07/19 at 11:00; Stop 07/07/19 at 11:01; Status DC Sodium Chloride 1,000 ml @ 1,000 mls/hr 1X ONCE IV Last administered on 07/07/19at 13:56; Start 07/07/19 at 11:15; Stop 07/07/19 at 12:14; Status DC Famotidine (Pepcid Vial) 20 mg QHS IVP Last administered on 07/08/19at 21:24; Start 07/07/19 at 21:00 Enoxaparin Sodium (Lovenox 40mg Syringe) 40 mg Q24H SQ Last administered on 07/08/19at 13:14; Start 07/07/19 at 13:00 Labetalol HCl (Normodyne Iv Push) 10 mg PRN Q2HR PRN IVP HYPERTENSION; Start 07/07/19 at 11:45 Fentanyl Citrate (Fentanyl 2ml Vial) 50 mcg PRN Q2HR PRN IVP PAIN; Start 07/07/19 at 11:45 Acetaminophen (Tylenol) 650 mg PRN Q6HRS PRN PEG MILD PAIN / TEMP; Start 07/07/19 at 11:45 Ondansetron HCl (Zofran) 4 mg PRN Q6HRS PRN IVP NAUSEA/VOMITING; Start 07/07/19 at 11:45 Sodium Chloride 1,000 ml @ 100 mls/hr Q10H IV Last administered on 07/09/19at 04:23; Start 07/07/19 at 12:00 Ferrous Sulfate (Feosol) 325 mg DAILYWBKFT PO Last administered on 07/08/19at 08:55; Start 07/08/19 at 08:00 Albuterol/ Ipratropium (Duoneb) 3 ml RTQID NEB Last administered on 07/09/19at 08:27; Start 07/07/19 at 12:00 Piperacillin Sod/ Tazobactam Sod 3.375 gm/Sodium Chloride 50 ml @ 100 mls/hr 1X ONCE IV Last administered on 07/07/19at 13:51; Start 07/07/19 at 12:00; Stop 07/07/19 at 12:29; Status DC Vancomycin HCl 250 ml @ 250 mls/hr 1X ONCE IV ; Start 07/07/19 at 12:00; Stop 07/07/19 at 12:59; Status UNV Sodium Chloride 1,000 ml @ 1,000 mls/hr 1X ONCE IV Last administered on 07/07/19at 14:56; Start 07/07/19 at 12:00; Stop 07/07/19 at 12:59; Status DC Vancomycin HCl 1.5 gm/Sodium Chloride 500 ml @ 250 mls/hr 1X ONCE IV Last administered on 07/07/19at 12:46; Start 07/07/19 at 12:00; Stop 07/07/19 at 1 3:59; Status DC Sodium Chloride 1,000 ml @ 125 mls/hr Q8H IV Last administered on 07/07/19at 15:57; Start 07/07/19 at 11:52; Stop 07/07/19 at 20:58; Status DC Propofol 50 ml @ As Directed STK-MED ONCE IV ; Start 07/07/19 at 12:06; Stop 07/07/19 at 12:07; Status DC Midazolam HCl (Versed) 5 mg 1X ONCE IV Last administered on 07/07/19at 10:58; Start 07/07/19 at 13:30; Stop 07/07/19 at 13:31; Status DC Midazolam HCl (Versed) 5 mg 1X ONCE IV Last administered on 07/07/19at 11:10; Start 07/07/19 at 13:30; Stop 07/07/19 at 13:32; Status DC Succinylcholine Chloride (Anectine) 100 mg 1X ONCE IV Last administered on 07/07/19 10:51; Start 07/07/19 at 13:45; Stop 07/07/19 at 13:46; Status DC Etomidate (Amidate) 20 mg 1X ONCE IV Last administered on 07/07/19 10:49; Start 07/07/19 at 13:45; Stop 07/07/19 at 13:46; Status DC Fentanyl Citrate (Fentanyl 2ml Vial) 100 mcg 1X ONCE IVP Last administered on 07/07/19at 11:10; Start 07/07/19 at 13:45; Stop 07/07/19 at 13:46; Status DC Propofol 100 ml @ As Directed STK-MED ONCE IV ; Start 07/07/19 at 14:03; Stop 07/07/19 at 14:03; Status DC Propofol 100 ml @ 0.993 mls/ hr CONT PRN IV SEE I/O RECORD Last administered on 07/09/19at 07:27; Start 07/07/19 at 14:15 Lactulose (Lactulose) 20 gm BID PO Last administered on 07/08/19 21:25; Start 07/07/19 at 14:15 Midazolam HCl 100 ml @ 5 mls/hr CONT PRN IV SEE I/O RECORD Last administered on 07/07/19 21:12; Start 07/07/19 at 20:15 Fentanyl Citrate 30 ml @ 0 mls/hr CONT PRN IV SEE PROTOCOL; Start 07/08/19 at 09:15 Potassium Chloride/Water 100 ml @ 100 mls/hr Q1H IV Last administered on 07/08/19at 13:11; Start 07/08/19 at 09:30; Stop 07/08/19 at 11:29; Status DC Olanzapine (ZyPREXA) 5 mg BID PO Last administered on 07/08/19 21:25; Start 07/08/19 at 15:00 Mirtazapine (Remeron) 7.5 mg QHS PO Last administered on 07/08/19 21:25; Start 07/08/19 at 21:00 Non-Formulary Medication (Desvenlafaxine Succinate (Pristiq Er)) 1 tab DAILY PO ; Start 07/09/19 at 09:00; Status UNV Desvenlafaxine Succinate (Pristiq Er) 25 mg DAILY PO ; Start 07/09/19 at 09:00 Artificial Tears (Artificial Tears) 1 drop PRN Q15MIN PRN OU DRY EYE Last administered on 07/09/19at 07:27; Start 07/08/19 at 17:45 Potassium Chloride/Water 50 ml @ 50 mls/hr Q1H IV ; Start 07/09/19 at 07:00; Stop 07/09/19 at 08:59; Status UNV Potassium Chloride/Water 100 ml @ 100 mls/hr Q1H IV Last administered on 07/09/19at 09:18; Start 07/09/19 at 07:00; Stop 07/09/19 at 10:59 Active Scripts Active Keflex (Cephalexin) 500 Mg Capsule 2 Cap PO BID 5 Days Reported [iron] 325 Mg PO Ventolin Hfa Inhaler (Albuterol Sulfate) 18 Gm Hfa.aer.ad 2 Puff INH Q4HRS PRN Pristiq Er (Desvenlafaxine Succinate) 50 Mg Tab.er.24h 1 Tab PO DAILY Amitriptyline Hcl 25 Mg Tablet 1 Tab PO QHS Diazepam 5 Mg Tablet 5 Mg PO TID Gabapentin (Gabapentin) 300 Mg Capsule 300 Mg PO TID Vitals/I & O Vital Sign - Last 24 Hours 07/08/19 07/08/19 07/08/19 07/08/19 10:08 11:14 11:40 12:00 Pulse 96 97 Resp 16 16 B/P (MAP) 127/55 (79) 170/83 (112) Pulse Ox 100 100 O2 Delivery Ventilator Ventilator Ventilator Mechanical Ventilator 07/08/19 07/08/19 07/08/19 07/08/19 12:00 12:23 13:00 13:25 Temp 98.7 98.7 Pulse 96 79 Resp 21 16 B/P (MAP) 154/65 (94) 175/81 (112) Pulse Ox 100 100 99 O2 Delivery Ventilator Ventilator Ventilator Ventilator 07/08/19 07/08/19 07/08/19 07/08/19 14:08 15:00 16:00 16:00 Temp 98.5 98.5 Pulse 107 97 90 Resp 16 16 16 B/P (MAP) 188/98 (128) 163/87 (112) 141/62 (88) Pulse Ox 100 100 100 O2 Delivery Ventilator Ventilator Mechanical Ventilator Ventilator 07/08/19 07/08/19 07/08/19 07/08/19 16:33 17:11 18:06 18:11 Pulse 101 94 Resp 16 16 B/P (MAP) 153/76 (101) 129/61 (83) Pulse Ox 100 100 100 100 O2 Delivery Ventilator Ventilator Ventilator Ventilator 07/08/19 07/08/19 07/08/19 07/08/19 19:00 20:00 20:00 20:07 Temp 98.8 98.8 Pulse 83 79 Resp 16 16 B/P (MAP) 124/64 (84) 145/72 (96) Pulse Ox 100 100 100 O2 Delivery Ventilator Ventilator Mechanical Ventilator Ventilator 07/08/19 07/08/19 07/08/19 07/08/19 21:00 22:00 22:12 23:00 Pulse 76 78 73 Resp 16 16 16 B/P (MAP) 139/71 (93) 131/64 (86) 145/71 (95) Pulse Ox 100 100 100 100 O2 Delivery Ventilator Ventilator Ventilator Ventilator 07/08/19 07/09/19 07/09/19 07/09/19 23:59 00:00 00:28 01:00 Temp 98.6 98.6 Pulse 72 75 Resp 16 16 B/P (MAP) 141/69 (93) 160/80 (106) Pulse Ox 100 100 100 O2 Delivery Mechanical Ventilator Ventilator Ventilator Ventilator 07/09/19 07/09/19 07/09/19 07/09/19 02:00 02:14 03:00 04:00 Pulse 66 71 Resp 16 16 B/P (MAP) 148/66 (93) 143/64 (90) Pulse Ox 100 100 100 O2 Delivery Ventilator Ventilator Ventilator Mechanical Ventilator 07/09/19 07/09/19 07/09/19 07/09/19 04:00 04:36 05:00 06:00 Temp 97.6 97.6 Pulse 69 63 59 Resp 16 16 16 B/P (MAP) 136/68 (90) 114/54 (74) 144/74 (97) Pulse Ox 100 100 100 100 O2 Delivery Ventilator Ventilator Ventilator Ventilator 07/09/19 07/09/19 07/09/19 07/09/19 07:10 07:56 08:07 08:27 Temp 97.6 97.6 Pulse 68 77 Resp 16 16 B/P (MAP) 165/69 (101) 149/103 (118) Pulse Ox 100 100 100 O2 Delivery Ventilator Mechanical Ventilator Ventilator Ventilator 07/09/19 07/09/19 09:08 09:18 Pulse 88 Resp 16 B/P (MAP) 159/76 (103) Pulse Ox 100 100 O2 Delivery Ventilator Ventilator Intake and Output 07/08/19 07/08/19 07/09/19 15:00 23:00 07:00 Intake Total 200 ml 1282 ml 1501 ml Output Total 2450 ml 1600 ml 775 ml Balance -2250 ml -318 ml 726 ml ALICJA ALLEN MD Jul 09, 2019 09:52
--- NOTE | 2019-07-09 10:22 | PDOC ---
PULMONARY PROGRESS NOTES Subjective remains unresponsive MRI head P AC mode Vitals Vital Signs Date Time Temp Pulse Resp B/P (MAP) Pulse Ox O2 Delivery O2 Flow Rate FiO2 07/09/19 09:18 100 Ventilator 07/09/19 09:08 88 16 159/76 (103) 07/09/19 07:10 97.6 97.6 Lungs: Clear Cardiovascular: S1, S2 Abdomen: Soft, Non-tender Extremities: Other (1+edema) Skin: Warm Labs Laboratory Tests Test 07/07/19 10:42 07/07/19 10:46 07/07/19 10:48 07/07/19 11:55 White Blood Count 9.5 x10^3/uL (4.0-11.0) Red Blood Count 3.41 x10^6/uL (3.50-5.40) Hemoglobin 11.3 g/dL (12.0-15.5) Hematocrit 32.6 % (36.0-47.0) Mean Corpuscular Volume 96 fL (79-100) Mean Corpuscular Hemoglobin 33 pg (25-35) Mean Corpuscular Hemoglobin Concent 35 g/dL (31-37) Red Cell Distribution Width 13.0 % (11.5-14.5) Platelet Count 317 x10^3/uL (140-400) Neutrophils (%) (Auto) 88 % (31-73) Lymphocytes (%) (Auto) 7 % (24-48) Monocytes (%) (Auto) 5 % (0-9) Eosinophils (%) (Auto) 0 % (0-3) Basophils (%) (Auto) 0 % (0-3) Neutrophils # (Auto) 8.4 x10^3/uL (1.8-7.7) Lymphocytes # (Auto) 0.6 x10^3/uL (1.0-4.8) Monocytes # (Auto) 0.5 x10^3/uL (0.0-1.1) Eosinophils # (Auto) 0.0 x10^3/uL (0.0-0.7) Basophils # (Auto) 0.0 x10^3/uL (0.0-0.2) Segmented Neutrophils % 85 % (35-66) Band Neutrophils % 2 % (0-9) Lymphocytes % 7 % (24-48) Monocytes % 6 % (0-10) Platelet Estimate Adequate (ADEQUATE) Prothrombin Time 13.2 SEC (11.7-14.0) Prothromb Time International Ratio 1.0 (0.8-1.1) Activated Partial Thromboplast Time 28 SEC (24-38) Sodium Level 134 mmol/L (136-145) Potassium Level 4.1 mmol/L (3.5-5.1) Chloride Level 98 mmol/L (98-107) Carbon Dioxide Level 21 mmol/L (21-32) Anion Gap 15 (6-14) Blood Urea Nitrogen 5 mg/dL (7-20) Creatinine 0.7 mg/dL (0.6-1.0) Estimated GFR (Cockcroft-Gault) 84.0 BUN/Creatinine Ratio 7 (6-20) Glucose Level 125 mg/dL (70-99) Lactic Acid Level 4.2 mmol/L (0.4-2.0) Calcium Level 8.3 mg/dL (8.5-10.1) Magnesium Level 2.0 mg/dL (1.8-2.4) Total Bilirubin 0.4 mg/dL (0.2-1.0) Aspartate Amino Transf (AST/SGOT) 14 U/L (15-37) Alanine Aminotransferase (ALT/SGPT) 14 U/L (14-59) Alkaline Phosphatase 133 U/L (46-116) Ammonia 66 mcmol/L (11-34) Creatine Kinase 118 U/L (26-192) Troponin I Quantitative < 0.017 ng/mL (0.000-0.055) XJ-Goe-I-Type Natriuretic Peptide 333 pg/mL (0-124) Total Protein 7.6 g/dL (6.4-8.2) Albumin 3.8 g/dL (3.4-5.0) Albumin/Globulin Ratio 1.0 (1.0-1.7) Lipase 44 U/L (73-393) Thyroid Stimulating Hormone (TSH) 0.625 uIU/mL (0.358-3.74) O2 Saturation 98 % (92-99) Arterial Blood pH 7.36 (7.35-7.45) Arterial Blood pCO2 at Patient Temp 30 mmHg (35-46) Arterial Blood pO2 at Patient Temp > 503 mmHg (65-108) Arterial Blood HCO3 17 mmol/L (21-28) Arterial Blood Base Excess -8 mmol/L (-3-3) FiO2 100 Glucose (Fingerstick) 123 mg/dL (70-99) Urine Collection Type Unknown Urine Color Yellow Urine Clarity Clear Urine pH 6.5 Urine Specific Norris 1.015 Urine Protein 30 mg/dL (NEG-TRACE) Urine Glucose (UA) Negative mg/dL (NEG) Urine Ketones (Stick) Negative mg/dL (NEG) Urine Blood Trace (NEG) Urine Nitrite Negative (NEG) Urine Bilirubin Negative (NEG) Urine Urobilinogen Dipstick 1.0 mg/dL (0.2 mg/dL) Urine Leukocyte Esterase Negative (NEG) Urine RBC 1-2 /HPF (0-2) Urine WBC 0 /HPF (0-4) Urine Squamous Epithelial Cells Few /LPF Urine Bacteria 0 /HPF (0-FEW) Urine Mucus Slight /LPF Urine Opiates Screen Neg (NEG) Urine Methadone Screen Neg (NEG) Urine Barbiturates Neg (NEG) Urine Phencyclidine Screen Neg (NEG) Urine Amphetamine/Methamphetamine Neg (NEG) Urine Benzodiazepines Screen Pos (NEG) Urine Cocaine Screen Neg (NEG) Urine Cannabinoids Screen Neg (NEG) Urine Ethyl Alcohol Pos (NEG) Test 07/07/19 14:45 07/08/19 04:05 07/08/19 09:20 07/08/19 12:23 Lactic Acid Level 2.4 mmol/L (0.4-2.0) White Blood Count 5.4 x10^3/uL (4.0-11.0) Red Blood Count 2.80 x10^6/uL (3.50-5.40) Hemoglobin 9.3 g/dL (12.0-15.5) Hematocrit 27.1 % (36.0-47.0) Mean Corpuscular Volume 97 fL (79-100) Mean Corpuscular Hemoglobin 33 pg (25-35) Mean Corpuscular Hemoglobin Concent 34 g/dL (31-37) Red Cell Distribution Width 13.3 % (11.5-14.5) Platelet Count 243 x10^3/uL (140-400) Neutrophils (%) (Auto) 66 % (31-73) Lymphocytes (%) (Auto) 21 % (24-48) Monocytes (%) (Auto) 12 % (0-9) Eosinophils (%) (Auto) 0 % (0-3) Basophils (%) (Auto) 1 % (0-3) Neutrophils # (Auto) 3.6 x10^3/uL (1.8-7.7) Lymphocytes # (Auto) 1.1 x10^3/uL (1.0-4.8) Monocytes # (Auto) 0.6 x10^3/uL (0.0-1.1) Eosinophils # (Auto) 0.0 x10^3/uL (0.0-0.7) Basophils # (Auto) 0.0 x10^3/uL (0.0-0.2) Sodium Level 141 mmol/L (136-145) Potassium Level 3.0 mmol/L (3.5-5.1) Chloride Level 110 mmol/L (98-107) Carbon Dioxide Level 20 mmol/L (21-32) Anion Gap 11 (6-14) Blood Urea Nitrogen 5 mg/dL (7-20) Creatinine 0.7 mg/dL (0.6-1.0) Estimated GFR (Cockcroft-Gault) 84.0 Glucose Level 102 mg/dL (70-99) Calcium Level 7.7 mg/dL (8.5-10.1) Ammonia 36 mcmol/L (11-34) Nasal Screen MRSA (PCR) Negative (Negative) O2 Saturation 97 % (92-99) 97 % (92-99) Arterial Blood pH 7.41 (7.35-7.45) 7.44 (7.35-7.45) Arterial Blood pCO2 at Patient Temp 30 mmHg (35-46) 28 mmHg (35-46) Arterial Blood pO2 at Patient Temp 153 mmHg (65-108) 179 mmHg (65-108) Arterial Blood HCO3 18 mmol/L (21-28) 19 mmol/L (21-28) Arterial Blood Base Excess -6 mmol/L (-3-3) -4 mmol/L (-3-3) FiO2 40 40 Test 07/09/19 05:25 07/09/19 08:44 Sodium Level 143 mmol/L (136-145) Potassium Level 2.7 mmol/L (3.5-5.1) Chloride Level 110 mmol/L (98-107) Carbon Dioxide Level 21 mmol/L (21-32) Anion Gap 12 (6-14) Blood Urea Nitrogen 3 mg/dL (7-20) Creatinine 0.5 mg/dL (0.6-1.0) Estimated GFR (Cockcroft-Gault) 123.8 Glucose Level 95 mg/dL (70-99) Calcium Level 8.2 mg/dL (8.5-10.1) Magnesium Level 2.0 mg/dL (1.8-2.4) Ammonia 27 mcmol/L (11-34) O2 Saturation 96 % (92-99) Arterial Blood pH 7.42 (7.35-7.45) Arterial Blood pCO2 at Patient Temp 29 mmHg (35-46) Arterial Blood pO2 at Patient Temp 132 mmHg (65-108) Arterial Blood HCO3 18 mmol/L (21-28) Arterial Blood Base Excess -5 mmol/L (-3-3) FiO2 40 Laboratory Tests Test 07/08/19 12:23 07/09/19 05:25 07/09/19 08:44 O2 Saturation 97 % (92-99) 96 % (92-99) Arterial Blood pH 7.44 (7.35-7.45) 7.42 (7.35-7.45) Arterial Blood pCO2 at Patient Temp 28 mmHg (35-46) 29 mmHg (35-46) Arterial Blood pO2 at Patient Temp 179 mmHg (65-108) 132 mmHg (65-108) Arterial Blood HCO3 19 mmol/L (21-28) 18 mmol/L (21-28) Arterial Blood Base Excess -4 mmol/L (-3-3) -5 mmol/L (-3-3) FiO2 40 40 Sodium Level 143 mmol/L (136-145) Potassium Level 2.7 mmol/L (3.5-5.1) Chloride Level 110 mmol/L (98-107) Carbon Dioxide Level 21 mmol/L (21-32) Anion Gap 12 (6-14) Blood Urea Nitrogen 3 mg/dL (7-20) Creatinine 0.5 mg/dL (0.6-1.0) Estimated GFR (Cockcroft-Gault) 123.8 Glucose Level 95 mg/dL (70-99) Calcium Level 8.2 mg/dL (8.5-10.1) Magnesium Level 2.0 mg/dL (1.8-2.4) Ammonia 27 mcmol/L (11-34) Medications Active Scripts Medications Dose Route/Sig Max Daily Dose Days Date Category Keflex (Cephalexin) 500 Mg Capsule 2 Cap PO BID 5 10/22/18 Rx [iron] 325 Mg PO 09/23/18 Reported Ventolin Hfa Inhaler (Albuterol Sulfate) 18 Gm Hfa.aer.ad 2 Puff INH Q4HRS PRN 07/04/18 Reported Pristiq Er (Desvenlafaxine Succinate) 50 Mg Tab.er.24h 1 Tab PO DAILY 07/01/18 Reported Amitriptyline Hcl 25 Mg Tablet 1 Tab PO QHS 07/01/18 Reported Diazepam 5 Mg Tablet 5 Mg PO TID 07/01/18 Reported Gabapentin (Gabapentin) 300 Mg Capsule 300 Mg PO TID 07/01/18 Reported Comments cxr 07/09 left effusion, small Impression . IMPRESSION: 1. Acute respiratory failure secondary to acute toxic encephalopathy. 2. Acute toxic encephalopathy contributed by alcohol and benzodiazepines.? ischemic CVA 3. Possible underlying chronic obstructive pulmonary disease. 4. No definite infiltrates seen on the chest x-ray. 5. No abnormal intracranial findings on CT head. Plan . 1. Discussed with the patient's nurse and RT. MRI head today. will dc sedation after that 2. Once awake, we will proceed with CPAP titration and also assess her mental status. 3. Continue bronchodilators. 4. DVT prophylaxis with Lovenox. 5. Follow Neurology recommendations. 6. Stress ulcer prophylaxis. 7. enteral nutrition HOANG CHUNG MD Jul 09, 2019 10:22
[2019-07-09] MEDS ORDERED: GADOTERATE 7.5 MMOL/15ML VIAL. IVP ONE (11:30)
[2019-07-09] MEDS ORDERED: RISP0.5T3 PO (12:23)
[2019-07-09] MEDS ORDERED: FERR325T14 PO (12:23)
[2019-07-09] MEDS ORDERED: ACET325T21 PO ×2 (12:23)
[2019-07-09] MEDS ORDERED: PANT40TA77 PO (12:23)
[2019-07-09] MEDS ORDERED: DICL1TAB50 PO (12:23)
[2019-07-09] MEDS ORDERED: BUSP10TA PO (12:23)
[2019-07-09] MEDS ORDERED: DIVA500T17 PO ×2 (12:23)
[2019-07-09] MEDS ORDERED: MIRT7.5T8 PO (12:23)
--- NOTE | 2019-07-09 12:31 | RAD ---
BRAIN W/O CONTRAST History: Herpes encephalitis. Unresponsive. Technique: Multiplanar, multi sequential MR imaging was performed of the brain without contrast. Contrast was not administered due to patient motion. Comparison: CT July 07, 2019. MRI July 01, 2018. Findings: Motion degraded examination. No acute infarct. No intracranial hemorrhage. No mass effect. Mild to moderate brain parenchymal volume loss. Mildly dilated lateral ventricles, likely related to central brain parenchymal volume loss, unchanged. Mild facet degenerative/FLAIR hyperintensities within the hemispheric white matter, most often due to chronic microvascular ischemia, unchanged. No evidence of signal abnormalities within the bilateral temporal lobes Imaged orbits are unremarkable. Minimal maxillary sinus mucosal thickening. Secretions within the posterior nasopharynx and nasal cavity likely related to intubation. Minimal mastoid fluid. Impression: Motion degraded examination. 1. No acute intracranial abnormality. 2. Brain parenchymal volume loss and sequela of chronic microvascular ischemia. Electronically signed by: Salvatore Peter DO (07/09/2019 12:28 PM) [id number]
[2019-07-09] MEDS: ENOXAPARIN 40 MG/0.4 ML SYRINGE. SQ SCH (13:00)
[2019-07-09 13:42] LABS: BASE EXCESS ABG -5 mmol/L (-3-3); HCO3 ABG 18 mmol/L (21-28); PCO2 ABG 28 mmHg (35-46); PO2 ABG 156 mmHg (65-108); SAT O2 ABG 97 % (92-99)
[2019-07-09] MEDS ORDERED: SODIUM BICARB ADULT 8.4% 50 MEQ/50 ML DISP.SYRIN. ONE (13:56)
[2019-07-09] MEDS ORDERED: SODIUM BICARB ADULT 8.4% 50 MEQ/50 ML DISP.SYRIN. IV ONE (14:00)
[2019-07-09] MEDS: DEXMEDETOMIDINE 400 MCG in IV NORMAL SALINE 100ML 96 ML IV PRN ×2 (14:58→19:57)
[2019-07-09] MEDS ORDERED: IV NORMAL SALINE 500ML BAG 500 ML IV PRN (15:00)
[2019-07-09] MEDS ORDERED: ATROPINE 0.5 MG/5 ML DISP.SYRINGE. IV PRN (15:00)
[2019-07-09] MEDS: FAMOTIDINE 20 MG/2 ML VIAL IVP SCH (20:46)
[2019-07-09] MEDS: MIRTAZAPINE 7.5 MG TABLET. PO SCH (21:00)
--- NOTE | 2019-07-09 21:00 | NUR ---
Attempt made by this RN with assistance of corporate giving manager to place dobhoff. When tube was down to marked measurement and taped, patient would grab tube between her mitts and pull out, ripping the tape. This occurred three times. Dobhoff removed, no more attempts were made.
[2019-07-09] MEDS: LABETALOL 20 MG/4 ML DISP.SYRIN. IVP PRN (22:53)
[2019-07-10] VITALS (14 sets, daily range): BP systolic 89–189; BP diastolic 51–97
[2019-07-10] MEDS: IV 1/2 NORMAL SALINE 1,000 ML IV SCH ×3 (01:32→20:00)
[2019-07-10] MEDS: LABETALOL 20 MG/4 ML DISP.SYRIN. IVP PRN (01:33)
[2019-07-10 05:34] LABS: BASO # 0.1 x10^3/uL (0.0-0.2); BASO % 2 % (0-3); EOS # 0.5 x10^3/uL (0.0-0.7); EOS % 10 % (0-3); HEMATOCRIT 32.2 % (36.0-47.0); HEMOGLOBIN 11.2 g/dL (12.0-15.5); LYMPH % 19 % (24-48); MEAN CORPUSCULAR HEMOGLOBIN 34 pg (25-35); MEAN CORPUSCULAR HGB CONC 35 g/dL (31-37); MEAN CORPUSCULAR VOLUME 96 fL (79-100); MONO # 0.5 x10^3/uL (0.0-1.1); MONO % 10 % (0-9); NEUT # 3.2 x10^3/uL (1.8-7.7); NEUT % 59 % (31-73); PLATELET COUNT 251 x10^3/uL (140-400); RED BLOOD COUNT 3.34 x10^6/uL (3.50-5.40); RED CELL DISTRIBUTION WIDTH 13.4 % (11.5-14.5); WHITE BLOOD COUNT 5.3 x10^3/uL (4.0-11.0)
[2019-07-10 06:09] LABS: ALBUMIN 3.3 g/dL (3.4-5.0); ALBUMIN/GLOBULIN RATIO 0.8 (1.0-1.7); CALCIUM 9.3 mg/dL (8.5-10.1); CREATININE 0.5 mg/dL (0.6-1.0); GFR 123.8; POTASSIUM 3.1 mmol/L (3.5-5.1); TOTAL BILIRUBIN 0.6 mg/dL (0.2-1.0); TOTAL PROTEIN 7.3 g/dL (6.4-8.2)
[2019-07-10] MEDS: IPRATRPIUM/ALBUTEROL 0.5/2.5MG 3 ML NEBU. NEB SCH ×4 (08:48→19:54)
--- NOTE | 2019-07-10 08:54 | PDOC ---
PROGRESS NOTES Chief Complaint Chief Complaint Acute respiratory failure secondary to acute toxic encephalopathy Acute toxic encephalopathy contributed by alcohol and benzodiazepines Lactic acidosis HTN Smoking Unresponsiveness Schizophrenia History of Present Illness History of Present Illness Ms Savannah is a 64-year-old F w/ PMHx obesity, schizophrenia, hypertension, and depression who was brought in by her son confused and was less responsive. She had a low Zain coma scale and she was intubated in the ED with initial ABG pH 7.36, pCO2 of 30 and a pO2 of 503 with bicarbonate of 17. UDS positive for benzos and alcohol. She does have episodic hospitalizations for confusion. 07/09: She tolerated the vent well overnight. Improved ABG this morning. Still sedated on ventilatory, FiO2 35%, PEEP 5. K notably 2.7 this morning despite replacement on 07/08. Extubated without event Potassium still a bit low. She is anxious to leave the hospital. Advised she needs some therapy and hare removed. Breathing better. MRI and EEG reviewed as negative. 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 Vital Signs Date Time Temp Pulse Resp B/P (MAP) Pulse Ox O2 Delivery O2 Flow Rate FiO2 07/10/19 08:50 Room Air 07/10/19 06:00 64 16 137/71 (93) 100 07/10/19 04:00 97.9 97.9 07/10/19 00:00 2.0 Physical Exam General: Alert, Cooperative, No acute distress, Other (intubated, sedated) Heart: Regular rate, Normal S1, Normal S2 Lungs: Clear Abdomen: Normal bowel sounds, Soft, No tenderness, No hepatosplenomegaly, No masses Extremities: No clubbing, No cyanosis, No edema, Normal pulses, No tenderness/swelling Skin: No rashes, No breakdown, No significant lesion Labs LABS Laboratory Tests Test 07/09/19 13:36 07/09/19 18:15 07/10/19 04:40 07/10/19 05:00 O2 Saturation 97 % (92-99) Arterial Blood pH 7.43 (7.35-7.45) Arterial Blood pCO2 at Patient Temp 28 mmHg (35-46) Arterial Blood pO2 at Patient Temp 156 mmHg (65-108) Arterial Blood HCO3 18 mmol/L (21-28) Arterial Blood Base Excess -5 mmol/L (-3-3) FiO2 40% cpap Potassium Level 3.3 mmol/L (3.5-5.1) 3.1 mmol/L (3.5-5.1) White Blood Count 5.3 x10^3/uL (4.0-11.0) Red Blood Count 3.34 x10^6/uL (3.50-5.40) Hemoglobin 11.2 g/dL (12.0-15.5) Hematocrit 32.2 % (36.0-47.0) Mean Corpuscular Volume 96 fL (79-100) Mean Corpuscular Hemoglobin 34 pg (25-35) Mean Corpuscular Hemoglobin Concent 35 g/dL (31-37) Red Cell Distribution Width 13.4 % (11.5-14.5) Platelet Count 251 x10^3/uL (140-400) Neutrophils (%) (Auto) 59 % (31-73) Lymphocytes (%) (Auto) 19 % (24-48) Monocytes (%) (Auto) 10 % (0-9) Eosinophils (%) (Auto) 10 % (0-3) Basophils (%) (Auto) 2 % (0-3) Neutrophils # (Auto) 3.2 x10^3/uL (1.8-7.7) Lymphocytes # (Auto) 1.0 x10^3/uL (1.0-4.8) Monocytes # (Auto) 0.5 x10^3/uL (0.0-1.1) Eosinophils # (Auto) 0.5 x10^3/uL (0.0-0.7) Basophils # (Auto) 0.1 x10^3/uL (0.0-0.2) Sodium Level 143 mmol/L (136-145) Chloride Level 107 mmol/L (98-107) Carbon Dioxide Level 24 mmol/L (21-32) Anion Gap 12 (6-14) Blood Urea Nitrogen 3 mg/dL (7-20) Creatinine 0.5 mg/dL (0.6-1.0) Estimated GFR (Cockcroft-Gault) 123.8 BUN/Creatinine Ratio 6 (6-20) Glucose Level 105 mg/dL (70-99) Calcium Level 9.3 mg/dL (8.5-10.1) Total Bilirubin 0.6 mg/dL (0.2-1.0) Aspartate Amino Transf (AST/SGOT) 14 U/L (15-37) Alanine Aminotransferase (ALT/SGPT) 10 U/L (14-59) Alkaline Phosphatase 102 U/L (46-116) Total Protein 7.3 g/dL (6.4-8.2) Albumin 3.3 g/dL (3.4-5.0) Albumin/Globulin Ratio 0.8 (1.0-1.7) Assessment and Plan Assessmemt and Plan Problems Medical Problems: (1) Anemia Status: Acute (2) Serum ammonia increased Status: Acute (3) Severe sepsis Status: Acute (4) Unresponsive Status: Acute Comment Review of Relevant I have reviewed the following items michelle (where applicable) has been applied. Labs Laboratory Tests Test 07/08/19 09:20 07/08/19 12:23 07/09/19 05:25 07/09/19 08:44 Nasal Screen MRSA (PCR) Negative (Negative) O2 Saturation 97 % (92-99) 97 % (92-99) 96 % (92-99) Arterial Blood pH 7.41 (7.35-7.45) 7.44 (7.35-7.45) 7.42 (7.35-7.45) Arterial Blood pCO2 at Patient Temp 30 mmHg (35-46) 28 mmHg (35-46) 29 mmHg (35-46) Arterial Blood pO2 at Patient Temp 153 mmHg (65-108) 179 mmHg (65-108) 132 mmHg (65-108) Arterial Blood HCO3 18 mmol/L (21-28) 19 mmol/L (21-28) 18 mmol/L (21-28) Arterial Blood Base Excess -6 mmol/L (-3-3) -4 mmol/L (-3-3) -5 mmol/L (-3-3) FiO2 40 40 40 Sodium Level 143 mmol/L (136-145) Potassium Level 2.7 mmol/L (3.5-5.1) Chloride Level 110 mmol/L (98-107) Carbon Dioxide Level 21 mmol/L (21-32) Anion Gap 12 (6-14) Blood Urea Nitrogen 3 mg/dL (7-20) Creatinine 0.5 mg/dL (0.6-1.0) Estimated GFR (Cockcroft-Gault) 123.8 Glucose Level 95 mg/dL (70-99) Calcium Level 8.2 mg/dL (8.5-10.1) Magnesium Level 2.0 mg/dL (1.8-2.4) Ammonia 27 mcmol/L (11-34) Test 07/09/19 13:36 07/09/19 18:15 07/10/19 04:40 07/10/19 05:00 O2 Saturation 97 % (92-99) Arterial Blood pH 7.43 (7.35-7.45) Arterial Blood pCO2 at Patient Temp 28 mmHg (35-46) Arterial Blood pO2 at Patient Temp 156 mmHg (65-108) Arterial Blood HCO3 18 mmol/L (21-28) Arterial Blood Base Excess -5 mmol/L (-3-3) FiO2 40% cpap Potassium Level 3.3 mmol/L (3.5-5.1) 3.1 mmol/L (3.5-5.1) White Blood Count 5.3 x10^3/uL (4.0-11.0) Red Blood Count 3.34 x10^6/uL (3.50-5.40) Hemoglobin 11.2 g/dL (12.0-15.5) Hematocrit 32.2 % (36.0-47.0) Mean Corpuscular Volume 96 fL (79-100) Mean Corpuscular Hemoglobin 34 pg (25-35) Mean Corpuscular Hemoglobin Concent 35 g/dL (31-37) Red Cell Distribution Width 13.4 % (11.5-14.5) Platelet Count 251 x10^3/uL (140-400) Neutrophils (%) (Auto) 59 % (31-73) Lymphocytes (%) (Auto) 19 % (24-48) Monocytes (%) (Auto) 10 % (0-9) Eosinophils (%) (Auto) 10 % (0-3) Basophils (%) (Auto) 2 % (0-3) Neutrophils # (Auto) 3.2 x10^3/uL (1.8-7.7) Lymphocytes # (Auto) 1.0 x10^3/uL (1.0-4.8) Monocytes # (Auto) 0.5 x10^3/uL (0.0-1.1) Eosinophils # (Auto) 0.5 x10^3/uL (0.0-0.7) Basophils # (Auto) 0.1 x10^3/uL (0.0-0.2) Sodium Level 143 mmol/L (136-145) Chloride Level 107 mmol/L (98-107) Carbon Dioxide Level 24 mmol/L (21-32) Anion Gap 12 (6-14) Blood Urea Nitrogen 3 mg/dL (7-20) Creatinine 0.5 mg/dL (0.6-1.0) Estimated GFR (Cockcroft-Gault) 123.8 BUN/Creatinine Ratio 6 (6-20) Glucose Level 105 mg/dL (70-99) Calcium Level 9.3 mg/dL (8.5-10.1) Total Bilirubin 0.6 mg/dL (0.2-1.0) Aspartate Amino Transf (AST/SGOT) 14 U/L (15-37) Alanine Aminotransferase (ALT/SGPT) 10 U/L (14-59) Alkaline Phosphatase 102 U/L (46-116) Total Protein 7.3 g/dL (6.4-8.2) Albumin 3.3 g/dL (3.4-5.0) Albumin/Globulin Ratio 0.8 (1.0-1.7) Laboratory Tests Test 07/09/19 13:36 07/09/19 18:15 07/10/19 04:40 07/10/19 05:00 O2 Saturation 97 % (92-99) Arterial Blood pH 7.43 (7.35-7.45) Arterial Blood pCO2 at Patient Temp 28 mmHg (35-46) Arterial Blood pO2 at Patient Temp 156 mmHg (65-108) Arterial Blood HCO3 18 mmol/L (21-28) Arterial Blood Base Excess -5 mmol/L (-3-3) FiO2 40% cpap Potassium Level 3.3 mmol/L (3.5-5.1) 3.1 mmol/L (3.5-5.1) White Blood Count 5.3 x10^3/uL (4.0-11.0) Red Blood Count 3.34 x10^6/uL (3.50-5.40) Hemoglobin 11.2 g/dL (12.0-15.5) Hematocrit 32.2 % (36.0-47.0) Mean Corpuscular Volume 96 fL (79-100) Mean Corpuscular Hemoglobin 34 pg (25-35) Mean Corpuscular Hemoglobin Concent 35 g/dL (31-37) Red Cell Distribution Width 13.4 % (11.5-14.5) Platelet Count 251 x10^3/uL (140-400) Neutrophils (%) (Auto) 59 % (31-73) Lymphocytes (%) (Auto) 19 % (24-48) Monocytes (%) (Auto) 10 % (0-9) Eosinophils (%) (Auto) 10 % (0-3) Basophils (%) (Auto) 2 % (0-3) Neutrophils # (Auto) 3.2 x10^3/uL (1.8-7.7) Lymphocytes # (Auto) 1.0 x10^3/uL (1.0-4.8) Monocytes # (Auto) 0.5 x10^3/uL (0.0-1.1) Eosinophils # (Auto) 0.5 x10^3/uL (0.0-0.7) Basophils # (Auto) 0.1 x10^3/uL (0.0-0.2) Sodium Level 143 mmol/L (136-145) Chloride Level 107 mmol/L (98-107) Carbon Dioxide Level 24 mmol/L (21-32) Anion Gap 12 (6-14) Blood Urea Nitrogen 3 mg/dL (7-20) Creatinine 0.5 mg/dL (0.6-1.0) Estimated GFR (Cockcroft-Gault) 123.8 BUN/Creatinine Ratio 6 (6-20) Glucose Level 105 mg/dL (70-99) Calcium Level 9.3 mg/dL (8.5-10.1) Total Bilirubin 0.6 mg/dL (0.2-1.0) Aspartate Amino Transf (AST/SGOT) 14 U/L (15-37) Alanine Aminotransferase (ALT/SGPT) 10 U/L (14-59) Alkaline Phosphatase 102 U/L (46-116) Total Protein 7.3 g/dL (6.4-8.2) Albumin 3.3 g/dL (3.4-5.0) Albumin/Globulin Ratio 0.8 (1.0-1.7) Microbiology 07/07/19 Blood Culture - Preliminary, Resulted NO GROWTH AFTER 2 DAYS Medications Current Medications Midazolam HCl 100 ml @ 1 mls/hr 1X ONCE IV Last administered on 07/07/19 13:52; Start 07/07/19 at 11:15; Stop 07/09/19 at 07:38; Status DC Propofol 50 ml @ As Directed STK-MED ONCE IV ; Start 07/07/19 at 11:00; Stop 07/07/19 at 11:01; Status DC Sodium Chloride 1,000 ml @ 1,000 mls/hr 1X ONCE IV Last administered on 07/07/19at 13:56; Start 07/07/19 at 11:15; Stop 07/07/19 at 12:14; Status DC Famotidine (Pepcid Vial) 20 mg QHS IVP Last administered on 07/09/19at 20:46; Start 07/07/19 at 21:00 Enoxaparin Sodium (Lovenox 40mg Syringe) 40 mg Q24H SQ Last administered on 07/08/19 13:14; Start 07/07/19 at 13:00 Labetalol HCl (Normodyne Iv Push) 10 mg PRN Q2HR PRN IVP HYPERTENSION Last ad ministered on 07/10/19at 01:33; Start 07/07/19 at 11:45 Fentanyl Citrate (Fentanyl 2ml Vial) 50 mcg PRN Q2HR PRN IVP PAIN; Start 07/07/19 at 11:45 Acetaminophen (Tylenol) 650 mg PRN Q6HRS PRN PEG MILD PAIN / TEMP; Start 07/07/19 at 11:45 Ondansetron HCl (Zofran) 4 mg PRN Q6HRS PRN IVP NAUSEA/VOMITING; Start 07/07/19 at 11:45 Sodium Chloride 1,000 ml @ 100 mls/hr Q10H IV Last administered on 07/10/19at 01:32; Start 07/07/19 at 12:00 Ferrous Sulfate (Feosol) 325 mg DAILYWBKFT PO Last administered on 07/08/19at 08:55; Start 07/08/19 at 08:00 Albuterol/ Ipratropium (Duoneb) 3 ml RTQID NEB Last administered on 07/10/19at 08:48; Start 07/07/19 at 12:00 Piperacillin Sod/ Tazobactam Sod 3.375 gm/Sodium Chloride 50 ml @ 100 mls/hr 1X ONCE IV Last administered on 07/07/19at 13:51; Start 07/07/19 at 12:00; Stop 07/07/19 at 12:29; Status DC Vancomycin HCl 250 ml @ 250 mls/hr 1X ONCE IV ; Start 07/07/19 at 12:00; Stop 07/07/19 at 12:59; Status UNV Sodium Chloride 1,000 ml @ 1,000 mls/hr 1X ONCE IV Last administered on 07/07/19at 14:56; Start 07/07/19 at 12:00; Stop 07/07/19 at 12:59; Status DC Vancomycin HCl 1.5 gm/Sodium Chloride 500 ml @ 250 mls/hr 1X ONCE IV Last administered on 07/07/19at 12:46; Start 07/07/19 at 12:00; Stop 07/07/19 at 13:59; Status DC Sodium Chloride 1,000 ml @ 125 mls/hr Q8H IV Last administered on 07/07/19at 15:57; Start 07/07/19 at 11:52; Stop 07/07/19 at 20:58; Status DC Propofol 50 ml @ As Directed STK-MED ONCE IV ; Start 07/07/19 at 12:06; Stop 07/07/19 at 12:07; Status DC Midazolam HCl (Versed) 5 mg 1X ONCE IV Last administered on 07/07/19at 10:58; Start 07/07/19 at 13:30; Stop 07/07/19 at 13:31; Status DC Midazolam HCl (Versed) 5 mg 1X ONCE IV Last administered on 07/07/19at 11:10; Start 07/07/19 at 13:30; Stop 07/07/19 at 13:32; Status DC Succinylcholine Chloride (Anectine) 100 mg 1X ONCE IV Last administered on 07/07/19at 10:51; Start 07/07/19 at 13:45; Stop 07/07/19 at 13:46; Status DC Etomidate (Amidate) 20 mg 1X ONCE IV Last administered on 07/07/19at 10:49; Start 07/07/19 at 13:45; Stop 07/07/19 at 13:46; Status DC Fentanyl Citrate (Fentanyl 2ml Vial) 100 mcg 1X ONCE IVP Last administered on 07/07/19at 11:10; Start 07/07/19 at 13:45; Stop 07/07/19 at 13:46; Status DC Propofol 100 ml @ As Directed STK-MED ONCE IV ; Start 07/07/19 at 14:03; Stop 07/07/19 at 14:03; Status DC Propofol 100 ml @ 0.993 mls/ hr CONT PRN IV SEE I/O RECORD Last administered on 07/09/19at 07:27; Start 07/07/19 at 14:15; Stop 07/09/19 at 14:28; Status DC Lactulose (Lactulose) 20 gm BID PO Last administered on 07/08/19at 21:25; Start 07/07/19 at 14:15 Midazolam HCl 100 ml @ 5 mls/hr CONT PRN IV SEE I/O RECORD Last administered on 07/07/19at 21:12; Start 07/07/19 at 20:15; Stop 07/09/19 at 14:28; Status DC Fentanyl Citrate 30 ml @ 0 mls/hr CONT PRN IV SEE PROTOCOL; Start 07/08/19 at 09:15; Stop 07/09/19 at 14:28; Status DC Potassium Chloride/Water 100 ml @ 100 mls/hr Q1H IV Last administered on 07/08/19at 13:11; Start 07/08/19 at 09:30; Stop 07/08/19 at 11:29; Status DC Olanzapine (ZyPREXA) 5 mg BID PO Last administered on 07/08/19at 21:25; Start 07/08/19 at 15:00 Mirtazapine (Remeron) 7.5 mg QHS PO Last administered on 07/08/19at 21:25; Start 07/08/19 at 21:00 Non-Formulary Medication (Desvenlafaxine Succinate (Pristiq Er)) 1 tab DAILY PO ; Start 07/09/19 at 09:00; Status UNV Desvenlafaxine Succinate (Pristiq Er) 25 mg DAILY PO ; Start 07/09/19 at 09:00 Artificial Tears (Artificial Tears) 1 drop PRN Q15MIN PRN OU DRY EYE Last administered on 07/09/19at 07:27; Start 07/08/19 at 17:45 Potassium Chloride/Water 50 ml @ 50 mls/hr Q1H IV ; Start 07/09/19 at 07:00; Stop 07/09/19 at 08:59; Status UNV Potassium Chloride/Water 100 ml @ 100 mls/hr Q1H IV Last administered on 07/09/19at 10:29; Start 07/09/19 at 07:00; Stop 07/09/19 at 10:59; Status DC Gadoterate Meglumine (Dotarem) 15.8 ml 1X ONCE IVP ; Start 07/09/19 at 11:30; Stop 07/09/19 at 11:31; Status DC Sodium Bicarbonate (Sodium Bicarb Adult 8.4% Syr) 50 meq 1X ONCE IV Last administered on 07/09/19at 13:57; Start 07/09/19 at 14:00; Stop 07/09/19 at 14:01; Status DC Sodium Bicarbonate (Sodium Bicarb Adult 8.4% Syr) 50 meq STK-MED ONCE .ROUTE ; Start 07/09/19 at 13:56; Stop 07/09/19 at 13:56; Status DC Dexmedetomidine HCl 400 mcg/ Sodium Chloride 100 ml @ 3.975 mls/ hr CONT PRN IV ANXIETY / AGITATION Last administered on 07/09/19at 19:57; Start 07/09/19 at 15:00 Sodium Chloride 500 ml @ 500 mls/hr 1X PRN PRN IV AGITATION; Start 07/09/19 at 15:00 Atropine Sulfate (ATROPINE 0.5mg SYRINGE) 0.5 mg PRN Q5MIN PRN IV SEE COMMENTS; Start 07/09/19 at 15:00 Active Scripts Active Reported Mirtazapine 7.5 Mg Tablet 7.5 Mg PO QHS Ferrous Sulfate 325 Mg Tablet 325 Mg PO DAILY Divalproex Sodium Er (Divalproex Sodium) 500 Mg Tab.er.24h 500 Mg PO QHS Divalproex Sodium Er (Divalproex Sodium) 500 Mg Tab.er.24h 250 Mg PO DAILYWBKFT Diclofenac-Misoprost 75-200 Tb (Diclofenac Sodium/Misoprostol) 1 Each Tab.ir.dr 1 Each PO TID PRN Buspirone Hcl 10 Mg Tablet 7.5 Mg PO BID PRN Acetaminophen 325 Mg Tablet 325 Mg PO PRN Q6HRS PRN Acetaminophen 325 Mg Tablet 325 Mg PO BID Ventolin Hfa Inhaler (Albuterol Sulfate) 18 Gm Hfa.aer.ad 2 Puff INH Q4HRS PRN Pristiq Er (Desvenlafaxine Succinate) 50 Mg Tab.er.24h 1 Tab PO DAILY Gabapentin (Gabapentin) 300 Mg Capsule 800 Mg PO TID Risperidone 0.5 Mg Tablet 0.5 Mg PO QHS Pantoprazole Sodium (Pantoprazole Sodium) 40 Mg Tablet.dr 40 Mg PO DAILYAC Vitals/I & O Vital Sign - Last 24 Hours 07/09/19 07/09/19 07/09/19 07/09/19 09:08 09:18 10:03 11:00 Pulse 88 87 87 Resp 16 16 16 B/P (MAP) 159/76 (103) 140/69 (92) 172/100 (124) Pulse Ox 100 100 100 100 O2 Delivery Ventilator Ventilator Ventilator Ventilator 07/09/19 07/09/19 07/09/19 07/09/19 12:31 12:33 13:00 13:01 Temp 98.0 98.0 Pulse 77 98 Resp 16 23 B/P (MAP) 127/59 (81) 147/95 (112) Pulse Ox 100 93 O2 Delivery Ventilator Mechanical Ventilator Ventilator Ventilator 07/09/19 07/09/19 07/09/19 07/09/19 14:22 15:03 15:30 16:00 Pulse 116 90 Resp 31 28 B/P (MAP) 188/93 (124) 190/82 (118) Pulse Ox 100 100 98 O2 Delivery Nasal Cannula Nasal Cannula Nasal Cannula Nasal Cannula O2 Flow Rate 2.0 2.0 2.0 2.0 07/09/19 07/09/19 07/09/19 07/09/19 16:07 17:30 18:12 18:13 Pulse 84 90 90 86 Resp 21 24 24 20 B/P (MAP) 149/63 (91) 172/83 (112) 172/83 (112) 167/84 (111) Pulse Ox 100 100 100 100 O2 Delivery Nasal Cannula Nasal Cannula Nasal Cannula Nasal Cannula O2 Flow Rate 2.0 2.0 2.0 2.0 07/09/19 07/09/19 07/09/19 07/09/19 19:00 19:44 20:00 20:00 Temp 97.4 97.4 Pulse 78 88 Resp 16 18 B/P (MAP) 176/86 (116) 174/87 (116) Pulse Ox 100 98 100 O2 Delivery Nasal Cannula Nasal Cannula Nasal Cannula Nasal Cannula O2 Flow Rate 2.0 2.0 2.0 2.0 07/09/19 07/09/19 07/09/19 07/09/19 20:00 21:00 22:00 22:53 Pulse 78 73 70 65 Resp 16 16 16 B/P (MAP) 176/86 (116) 169/77 (107) 187/90 (122) 182/96 Pulse Ox 100 100 100 O2 Delivery Nasal Cannula Nasal Cannula Nasal Cannula O2 Flow Rate 2.0 2.0 2.0 07/09/19 07/09/19 07/10/19 07/10/19 22:59 23:59 00:00 01:00 Temp 97.7 97.7 Pulse 62 61 67 Resp 15 16 15 B/P (MAP) 182/96 (124) 182/97 (125) 189/95 (126) Pulse Ox 100 100 100 O2 Delivery Nasal Cannula Nasal Cannula Nasal Cannula Room Air O2 Flow Rate 2.0 2.0 2.0 07/10/19 07/10/19 07/10/19 07/10/19 01:33 02:00 03:00 04:00 Pulse 63 61 60 Resp 16 24 B/P (MAP) 189/95 164/90 (114) 131/70 (90) Pulse Ox 100 100 O2 Delivery Room Air Room Air Room Air 07/10/19 07/10/19 07/10/19 07/10/19 04:00 05:00 06:00 08:50 Temp 97.9 97.9 Pulse 60 61 64 Resp 14 12 16 B/P (MAP) 153/68 (96) 152/80 (104) 137/71 (93) Pulse Ox 100 100 100 O2 Delivery Room Air Room Air Room Air Room Air Intake and Output 07/09/19 07/09/19 07/10/19 15:00 23:00 07:00 Intake Total 200 ml 1743 ml Output Total 1240 ml 2100 ml 1175 ml Balance -1040 ml -2100 ml 568 ml ALICJA ALLEN MD Jul 10, 2019 08:54
[2019-07-10] MEDS: LACTULOSE 20 GM/30 ML SOLUTION. PO SCH (08:56)
[2019-07-10] MEDS: POTASSIUM CHLORIDE 10MEQ 100 ML IV SCH ×4 (09:00→10:28)
[2019-07-10] MEDS ORDERED: POTASSIUM CHLORIDE 20 MEQ TABLET.ER. PO ONE (09:00)
[2019-07-10] MEDS: OLANZapine 5 MG TABLET PO SCH ×2 (09:06→21:16)
[2019-07-10] MEDS: FERROUS SULFATE 325 MG TABLET. PO SCH (09:06)
[2019-07-10] MEDS: DESVENLAFAXINE 25 MG TAB.ER.24H PO SCH (09:06)
--- NOTE | 2019-07-10 09:55 | PDOC ---
PULMONARY PROGRESS NOTES Subjective pt woke uo yesterday. Did well on CPAP extubated 07/09 doing well MRI head neg Vitals Vital Signs Date Time Temp Pulse Resp B/P (MAP) Pulse Ox O2 Delivery O2 Flow Rate FiO2 07/10/19 08:50 Room Air 07/10/19 06:00 64 16 137/71 (93) 100 07/10/19 04:00 97.9 97.9 07/10/19 00:00 2.0 General: Alert, No acute distress Lungs: Clear Cardiovascular: S1, S2 Abdomen: Soft, Non-tender Extremities: Other (1+edema) Skin: Warm Labs Laboratory Tests Test 07/08/19 12:23 07/09/19 05:25 07/09/19 08:44 07/09/19 13:36 O2 Saturation 97 % (92-99) 96 % (92-99) 97 % (92-99) Arterial Blood pH 7.44 (7.35-7.45) 7.42 (7.35-7.45) 7.43 (7.35-7.45) Arterial Blood pCO2 at Patient Temp 28 mmHg (35-46) 29 mmHg (35-46) 28 mmHg (35-46) Arterial Blood pO2 at Patient Temp 179 mmHg (65-108) 132 mmHg (65-108) 156 mmHg (65-108) Arterial Blood HCO3 19 mmol/L (21-28) 18 mmol/L (21-28) 18 mmol/L (21-28) Arterial Blood Base Excess -4 mmol/L (-3-3) -5 mmol/L (-3-3) -5 mmol/L (-3-3) FiO2 40 40 40% cpap Sodium Level 143 mmol/L (136-145) Potassium Level 2.7 mmol/L (3.5-5.1) Chloride Level 110 mmol/L (98-107) Carbon Dioxide Level 21 mmol/L (21-32) Anion Gap 12 (6-14) Blood Urea Nitrogen 3 mg/dL (7-20) Creatinine 0.5 mg/dL (0.6-1.0) Estimated GFR (Cockcroft-Gault) 123.8 Glucose Level 95 mg/dL (70-99) Calcium Level 8.2 mg/dL (8.5-10.1) Magnesium Level 2.0 mg/dL (1.8-2.4) Ammonia 27 mcmol/L (11-34) Test 07/09/19 18:15 07/10/19 04:40 07/10/19 05:00 Potassium Level 3.3 mmol/L (3.5-5.1) 3.1 mmol/L (3.5-5.1) White Blood Count 5.3 x10^3/uL (4.0-11.0) Red Blood Count 3.34 x10^6/uL (3.50-5.40) Hemoglobin 11.2 g/dL (12.0-15.5) Hematocrit 32.2 % (36.0-47.0) Mean Corpuscular Volume 96 fL (79-100) Mean Corpuscular Hemoglobin 34 pg (25-35) Mean Corpuscular Hemoglobin Concent 35 g/dL (31-37) Red Cell Distribution Width 13.4 % (11.5-14.5) Platelet Count 251 x10^3/uL (140-400) Neutrophils (%) (Auto) 59 % (31-73) Lymphocytes (%) (Auto) 19 % (24-48) Monocytes (%) (Auto) 10 % (0-9) Eosinophils (%) (Auto) 10 % (0-3) Basophils (%) (Auto) 2 % (0-3) Neutrophils # (Auto) 3.2 x10^3/uL (1.8-7.7) Lymphocytes # (Auto) 1.0 x10^3/uL (1.0-4.8) Monocytes # (Auto) 0.5 x10^3/uL (0.0-1.1) Eosinophils # (Auto) 0.5 x10^3/uL (0.0-0.7) Basophils # (Auto) 0.1 x10^3/uL (0.0-0.2) Sodium Level 143 mmol/L (136-145) Chloride Level 107 mmol/L (98-107) Carbon Dioxide Level 24 mmol/L (21-32) Anion Gap 12 (6-14) Blood Urea Nitrogen 3 mg/dL (7-20) Creatinine 0.5 mg/dL (0.6-1.0) Estimated GFR (Cockcroft-Gault) 123.8 BUN/Creatinine Ratio 6 (6-20) Glucose Level 105 mg/dL (70-99) Calcium Level 9.3 mg/dL (8.5-10.1) Total Bilirubin 0.6 mg/dL (0.2-1.0) Aspartate Amino Transf (AST/SGOT) 14 U/L (15-37) Alanine Aminotransferase (ALT/SGPT) 10 U/L (14-59) Alkaline Phosphatase 102 U/L (46-116) Total Protein 7.3 g/dL (6.4-8.2) Albumin 3.3 g/dL (3.4-5.0) Albumin/Globulin Ratio 0.8 (1.0-1.7) Laboratory Tests Test 07/09/19 13:36 07/09/19 18:15 07/10/19 04:40 07/10/19 05:00 O2 Saturation 97 % (92-99) Arterial Blood pH 7.43 (7.35-7.45) Arterial Blood pCO2 at Patient Temp 28 mmHg (35-46) Arterial Blood pO2 at Patient Temp 156 mmHg (65-108) Arterial Blood HCO3 18 mmol/L (21-28) Arterial Blood Base Excess -5 mmol/L (-3-3) FiO2 40% cpap Potassium Level 3.3 mmol/L (3.5-5.1) 3.1 mmol/L (3.5-5.1) White Blood Count 5.3 x10^3/uL (4.0-11.0) Red Blood Count 3.34 x10^6/uL (3.50-5.40) Hemoglobin 11.2 g/dL (12.0-15.5) Hematocrit 32.2 % (36.0-47.0) Mean Corpuscular Volume 96 fL (79-100) Mean Corpuscular Hemoglobin 34 pg (25-35) Mean Corpuscular Hemoglobin Concent 35 g/dL (31-37) Red Cell Distribution Width 13.4 % (11.5-14.5) Platelet Count 251 x10^3/uL (140-400) Neutrophils (%) (Auto) 59 % (31-73) Lymphocytes (%) (Auto) 19 % (24-48) Monocytes (%) (Auto) 10 % (0-9) Eosinophils (%) (Auto) 10 % (0-3) Basophils (%) (Auto) 2 % (0-3) Neutrophils # (Auto) 3.2 x10^3/uL (1.8-7.7) Lymphocytes # (Auto) 1.0 x10^3/uL (1.0-4.8) Monocytes # (Auto) 0.5 x10^3/uL (0.0-1.1) Eosinophils # (Auto) 0.5 x10^3/uL (0.0-0.7) Basophils # (Auto) 0.1 x10^3/uL (0.0-0.2) Sodium Level 143 mmol/L (136-145) Chloride Level 107 mmol/L (98-107) Carbon Dioxide Level 24 mmol/L (21-32) Anion Gap 12 (6-14) Blood Urea Nitrogen 3 mg/dL (7-20) Creatinine 0.5 mg/dL (0.6-1.0) Estimated GFR (Cockcroft-Gault) 123.8 BUN/Creatinine Ratio 6 (6-20) Glucose Level 105 mg/dL (70-99) Calcium Level 9.3 mg/dL (8.5-10.1) Total Bilirubin 0.6 mg/dL (0.2-1.0) Aspartate Amino Transf (AST/SGOT) 14 U/L (15-37) Alanine Aminotransferase (ALT/SGPT) 10 U/L (14-59) Alkaline Phosphatase 102 U/L (46-116) Total Protein 7.3 g/dL (6.4-8.2) Albumin 3.3 g/dL (3.4-5.0) Albumin/Globulin Ratio 0.8 (1.0-1.7) Medications Active Scripts Medications Dose Route/Sig Max Daily Dose Days Date Category Keflex (Cephalexin) 500 Mg Capsule 2 Cap PO BID 5 10/22/18 Rx [iron] 325 Mg PO 09/23/18 Reported Ventolin Hfa Inhaler (Albuterol Sulfate) 18 Gm Hfa.aer.ad 2 Puff INH Q4HRS PRN 07/04/18 Reported Pristiq Er (Desvenlafaxine Succinate) 50 Mg Tab.er.24h 1 Tab PO DAILY 07/01/18 Reported Amitriptyline Hcl 25 Mg Tablet 1 Tab PO QHS 07/01/18 Reported Diazepam 5 Mg Tablet 5 Mg PO TID 12/2/18 Reported Gabapentin (Gabapentin) 300 Mg Capsule 300 Mg PO TID 07/01/18 Reported Comments cxr 07/09 left effusion, small Impression . IMPRESSION: 1. Acute respiratory failure secondary to acute toxic encephalopathy. resolved. extubated 07/09 2. Acute toxic encephalopathy contributed by alcohol and benzodiazepines.No ischemic CVA 3. Possible underlying chronic obstructive pulmonary disease. 4. No definite infiltrates seen on the chest x-ray. 5. No abnormal intracranial findings on CT head. Plan . 1. on nasal cnaula 2. start PO nutrition. 3. Continue bronchodilators. 4. DVT prophylaxis with Lovenox. 5. Follow Neurology recommendations. 6. transfer to floor possible dc in 24 hrs HOANG CHUNG MD Jul 10, 2019 09:55
--- NOTE | 2019-07-10 10:02 | NUR ---
SS following up with discharge planning. Pt is currently on room air. SS will continue to follow for discharge planning.
--- NOTE | 2019-07-10 10:18 | PDOC ---
PROGRESS NOTES Assessment Problems Medical Problems: (1) Anemia Status: Acute (2) Serum ammonia increased Status: Acute (3) Severe sepsis Status: Acute (4) Unresponsive Status: Acute Metabolic encephalopathy. EEG negative for seizure activity, brain MRI negative Drug overdose? Respiratory failure. Lactic acidosis. HTN. Smoking. Unresponsiveness event in 09/18 cause unknown. Plan Okay to transfer out of ICU Treat medical diseases. Does not need LP. Subjective wants to go home Objective Vital Signs Date Time Temp Pulse Resp B/P (MAP) Pulse Ox O2 Delivery O2 Flow Rate FiO2 07/10/19 09:00 76 18 140/80 (100) 100 Room Air 07/10/19 08:00 98.0 98.0 07/10/19 00:00 2.0 Intake and Output 07/10/19 07:00 Intake Total 1943 ml Output Total 4515 ml Balance -2572 ml IV Total 1743 ml Tube Feeding 200 ml Output Urine Total 4515 ml PHYSICAL EXAM Alert, asking to go home, does not know date or name PERRL. CN: no focal findings. Muscle tone: normal. Muscle strength: spontaneous movement of all 4 extremities DTR: 1+ Plantar reflex: silent Gait: not examined in bed. Sensory exam: normal. Cerebellar: not testable Review of Relevant I have reviewed the following items michelle (where applicable) has been applied. Labs Laboratory Tests Test 07/08/19 12:23 07/09/19 05:25 07/09/19 08:44 07/09/19 13:36 O2 Saturation 97 % (92-99) 96 % (92-99) 97 % (92-99) Arterial Blood pH 7.44 (7.35-7.45) 7.42 (7.35-7.45) 7.43 (7.35-7.45) Arterial Blood pCO2 at Patient Temp 28 mmHg (35-46) 29 mmHg (35-46) 28 mmHg (35-46) Arterial Blood pO2 at Patient Temp 179 mmHg (65-108) 132 mmHg (65-108) 156 mmHg (65-108) Arterial Blood HCO3 19 mmol/L (21-28) 18 mmol/L (21-28) 18 mmol/L (21-28) Arterial Blood Base Excess -4 mmol/L (-3-3) -5 mmol/L (-3-3) -5 mmol/L (-3-3) FiO2 40 40 40% cpap Sodium Level 143 mmol/L (136-145) Potassium Level 2.7 mmol/L (3.5-5.1) Chloride Level 110 mmol/L (98-107) Carbon Dioxide Level 21 mmol/L (21-32) Anion Gap 12 (6-14) Blood Urea Nitrogen 3 mg/dL (7-20) Creatinine 0.5 mg/dL (0.6-1.0) Estimated GFR (Cockcroft-Gault) 123.8 Glucose Level 95 mg/dL (70-99) Calcium Level 8.2 mg/dL (8.5-10.1) Magnesium Level 2.0 mg/dL (1.8-2.4) Ammonia 27 mcmol/L (11-34) Test 07/09/19 18:15 07/10/19 04:40 07/10/19 05:00 Potassium Level 3.3 mmol/L (3.5-5.1) 3.1 mmol/L (3.5-5.1) White Blood Count 5.3 x10^3/uL (4.0-11.0) Red Blood Count 3.34 x10^6/uL (3.50-5.40) Hemoglobin 11.2 g/dL (12.0-15.5) Hematocrit 32.2 % (36.0-47.0) Mean Corpuscular Volume 96 fL (79-100) Mean Corpuscular Hemoglobin 34 pg (25-35) Mean Corpuscular Hemoglobin Concent 35 g/dL (31-37) Red Cell Distribution Width 13.4 % (11.5-14.5) Platelet Count 251 x10^3/uL (140-400) Neutrophils (%) (Auto) 59 % (31-73) Lymphocytes (%) (Auto) 19 % (24-48) Monocytes (%) (Auto) 10 % (0-9) Eosinophils (%) (Auto) 10 % (0-3) Basophils (%) (Auto) 2 % (0-3) Neutrophils # (Auto) 3.2 x10^3/uL (1.8-7.7) Lymphocytes # (Auto) 1.0 x10^3/uL (1.0-4.8) Monocytes # (Auto) 0.5 x10^3/uL (0.0-1.1) Eosinophils # (Auto) 0.5 x10^3/uL (0.0-0.7) Basophils # (Auto) 0.1 x10^3/uL (0.0-0.2) Sodium Level 143 mmol/L (136-145) Chloride Level 107 mmol/L (98-107) Carbon Dioxide Level 24 mmol/L (21-32) Anion Gap 12 (6-14) Blood Urea Nitrogen 3 mg/dL (7-20) Creatinine 0.5 mg/dL (0.6-1.0) Estimated GFR (Cockcroft-Gault) 123.8 BUN/Creatinine Ratio 6 (6-20) Glucose Level 105 mg/dL (70-99) Calcium Level 9.3 mg/dL (8.5-10.1) Total Bilirubin 0.6 mg/dL (0.2-1.0) Aspartate Amino Transf (AST/SGOT) 14 U/L (15-37) Alanine Aminotransferase (ALT/SGPT) 10 U/L (14-59) Alkaline Phosphatase 102 U/L (46-116) Total Protein 7.3 g/dL (6.4-8.2) Albumin 3.3 g/dL (3.4-5.0) Albumin/Globulin Ratio 0.8 (1.0-1.7) Laboratory Tests Test 07/09/19 13:36 07/09/19 18:15 07/10/19 04:40 07/10/19 05:00 O2 Saturation 97 % (92-99) Arterial Blood pH 7.43 (7.35-7.45) Arterial Blood pCO2 at Patient Temp 28 mmHg (35-46) Arterial Blood pO2 at Patient Temp 156 mmHg (65-108) Arterial Blood HCO3 18 mmol/L (21-28) Arterial Blood Base Excess -5 mmol/L (-3-3) FiO2 40% cpap Potassium Level 3.3 mmol/L (3.5-5.1) 3.1 mmol/L (3.5-5.1) White Blood Count 5.3 x10^3/uL (4.0-11.0) Red Blood Count 3.34 x10^6/uL (3.50-5.40) Hemoglobin 11.2 g/dL (12.0-15.5) Hematocrit 32.2 % (36.0-47.0) Mean Corpuscular Volume 96 fL (79-100) Mean Corpuscular Hemoglobin 34 pg (25-35) Mean Corpuscular Hemoglobin Concent 35 g/dL (31-37) Red Cell Distribution Width 13.4 % (11.5-14.5) Platelet Count 251 x10^3/uL (140-400) Neutrophils (%) (Auto) 59 % (31-73) Lymphocytes (%) (Auto) 19 % (24-48) Monocytes (%) (Auto) 10 % (0-9) Eosinophils (%) (Auto) 10 % (0-3) Basophils (%) (Auto) 2 % (0-3) Neutrophils # (Auto) 3.2 x10^3/uL (1.8-7.7) Lymphocytes # (Auto) 1.0 x10^3/uL (1.0-4.8) Monocytes # (Auto) 0.5 x10^3/uL (0.0-1.1) Eosinophils # (Auto) 0.5 x10^3/uL (0.0-0.7) Basophils # (Auto) 0.1 x10^3/uL (0.0-0.2) Sodium Level 143 mmol/L (136-145) Chloride Level 107 mmol/L (98-107) Carbon Dioxide Level 24 mmol/L (21-32) Anion Gap 12 (6-14) Blood Urea Nitrogen 3 mg/dL (7-20) Creatinine 0.5 mg/dL (0.6-1.0) Estimated GFR (Cockcroft-Gault) 123.8 BUN/Creatinine Ratio 6 (6-20) Glucose Level 105 mg/dL (70-99) Calcium Level 9.3 mg/dL (8.5-10.1) Total Bilirubin 0.6 mg/dL (0.2-1.0) Aspartate Amino Transf (AST/SGOT) 14 U/L (15-37) Alanine Aminotransferase (ALT/SGPT) 10 U/L (14-59) Alkaline Phosphatase 102 U/L (46-116) Total Protein 7.3 g/dL (6.4-8.2) Albumin 3.3 g/dL (3.4-5.0) Albumin/Globulin Ratio 0.8 (1.0-1.7) Microbiology 12/8/19 Blood Culture - Preliminary, Resulted NO GROWTH AFTER 2 DAYS Medications Current Medications Midazolam HCl 100 ml @ 1 mls/hr 1X ONCE IV Last administered on 07/07/19 13:52; Start 07/07/19 at 11:15; Stop 07/09/19 at 07:38; Status DC Propofol 50 ml @ As Directed STK-MED ONCE IV ; Start 07/07/19 at 11:00; Stop 07/07/19 at 11:01; Status DC Sodium Chloride 1,000 ml @ 1,000 mls/hr 1X ONCE IV Last administered on 07/07/19 13:56; Start 07/07/19 at 11:15; Stop 07/07/19 at 12:14; Status DC Famotidine (Pepcid Vial) 20 mg QHS IVP Last administered on 07/09/19at 20:46; Start 07/07/19 at 21:00 Enoxaparin Sodium (Lovenox 40mg Syringe) 40 mg Q24H SQ Last administered on 07/08/19 13:14; Start 07/07/19 at 13:00 Labetalol HCl (Normodyne Iv Push) 10 mg PRN Q2HR PRN IVP HYPERTENSION Last administered on 07/10/19 01:33; Start 07/07/19 at 11:45 Fentanyl Citrate (Fentanyl 2ml Vial) 50 mcg PRN Q2HR PRN IVP PAIN; Start 07/07/19 at 11:45 Acetaminophen (Tylenol) 650 mg PRN Q6HRS PRN PEG MILD PAIN / TEMP; Start 07/07/19 at 11:45 Ondansetron HCl (Zofran) 4 mg PRN Q6HRS PRN IVP NAUSEA/VOMITING; Start 07/07/19 at 11:45 Sodium Chloride 1,000 ml @ 100 mls/hr Q10H IV Last administered on 07/10/19 01:32; Start 07/07/19 at 12:00 Ferrous Sulfate (Feosol) 325 mg DAILYWBKFT PO Last administered on 07/10/19 09:06; Start 07/08/19 at 08:00 Albuterol/ Ipratropium (Duoneb) 3 ml RTQID NEB Last administered on 07/10/19at 08:48; Start 07/07/19 at 12:00 Piperacillin Sod/ Tazobactam Sod 3.375 gm/Sodium Chloride 50 ml @ 100 mls/hr 1X ONCE IV Last administered on 07/07/19at 13:51; Start 07/07/19 at 12:00; Stop 07/07/19 at 12:29; Status DC Vancomycin HCl 250 ml @ 250 mls/hr 1X ONCE IV ; Start 07/07/19 at 12:00; Stop 07/07/19 at 12:59; Status UNV Sodium Chloride 1,000 ml @ 1,000 mls/hr 1X ONCE IV Last administered on 07/07/19at 14:56; Start 07/07/19 at 12:00; Stop 07/07/19 at 12:59; Status DC Vancomycin HCl 1.5 gm/Sodium Chloride 500 ml @ 250 mls/hr 1X ONCE IV Last administered on 07/07/19at 12:46; Start 07/07/19 at 12:00; Stop 07/07/19 at 13:59; Status DC Sodium Chloride 1,000 ml @ 125 mls/hr Q8H IV Last administered on 07/07/19at 15:57; Start 07/07/19 at 11:52; Stop 07/07/19 at 20:58; Status DC Propofol 50 ml @ As Directed STK-MED ONCE IV ; Start 07/07/19 at 12:06; Stop 07/07/19 at 12:07; Status DC Midazolam HCl (Versed) 5 mg 1X ONCE IV Last administered on 07/07/19at 10:58; Start 07/07/19 at 13:30; Stop 07/07/19 at 13:31; Status DC Midazolam HCl (Versed) 5 mg 1X ONCE IV Last administered on 07/07/19at 11:10; Start 07/07/19 at 13:30; Stop 07/07/19 at 13:32; Status DC Succinylcholine Chloride (Anectine) 100 mg 1X ONCE IV Last administered on 07/07/19at 10:51; Start 07/07/19 at 13:45; Stop 07/07/19 at 13:46; Status DC Etomidate (Amidate) 20 mg 1X ONCE IV Last administered on 07/07/19at 10:49; Start 07/07/19 at 13:45; Stop 07/07/19 at 13:46; Status DC Fentanyl Citrate (Fentanyl 2ml Vial) 100 mcg 1X ONCE IVP Last administered on 07/07/19at 11:10; Start 07/07/19 at 13:45; Stop 07/07/19 at 13:46; Status DC Propofol 100 ml @ As Directed STK-MED ONCE IV ; Start 07/07/19 at 14:03; Stop 07/07/19 at 14:03; Status DC Propofol 100 ml @ 0.993 mls/ hr CONT PRN IV SEE I/O RECORD Last administered on 07/09/19at 07:27; Start 07/07/19 at 14:15; Stop 07/09/19 at 14:28; Status DC Lactulose (Lactulose) 20 gm BID PO Last administered on 07/08/19at 21:25; Start 07/07/19 at 14:15 Midazolam HCl 100 ml @ 5 mls/hr CONT PRN IV SEE I/O RECORD Last administered on 07/07/19at 21:12; Start 07/07/19 at 20:15; Stop 07/09/19 at 14:28; Status DC Fentanyl Citrate 30 ml @ 0 mls/hr CONT PRN IV SEE PROTOCOL; Start 07/08/19 at 09:15; Stop 07/09/19 at 14:28; Status DC Potassium Chloride/Water 100 ml @ 100 mls/hr Q1H IV Last administered on 07/08/19at 13:11; Start 07/08/19 at 09:30; Stop 07/08/19 at 11:29; Status DC Olanzapine (ZyPREXA) 5 mg BID PO Last administered on 07/10/19at 09:06; Start 07/08/19 at 15:00 Mirtazapine (Remeron) 7.5 mg QHS PO Last administered on 07/08/19at 21:25; Start 07/08/19 at 21:00 Non-Formulary Medication (Desvenlafaxine Succinate (Pristiq Er)) 1 tab DAILY PO ; Start 07/09/19 at 09:00; Status UNV Desvenlafaxine Succinate (Pristiq Er) 25 mg DAILY PO Last administered on 07/10/19at 09:06; Start 07/09/19 at 09:00 Artificial Tears (Artificial Tears) 1 drop PRN Q15MIN PRN OU DRY EYE Last administered on 07/09/19at 07:27; Start 07/08/19 at 17:45 Potassium Chloride/Water 50 ml @ 50 mls/hr Q1H IV ; Start 07/09/19 at 07:00; Stop 07/09/19 at 08:59; Status UNV Potassium Chloride/Water 100 ml @ 100 mls/hr Q1H IV Last administered on 07/09/19at 10:29; Start 07/09/19 at 07:00; Stop 07/09/19 at 10:59; Status DC Gadoterate Meglumine (Dotarem) 15.8 ml 1X ONCE IVP ; Start 07/09/19 at 11:30; Stop 07/09/19 at 11:31; Status DC Sodium Bicarbonate (Sodium Bicarb Adult 8.4% Syr) 50 meq 1X ONCE IV Last administered on 07/09/19at 13:57; Start 07/09/19 at 14:00; Stop 07/09/19 at 14:01; Status DC Sodium Bicarbonate (Sodium Bicarb Adult 8.4% Syr) 50 meq STK-MED ONCE .ROUTE ; Start 07/09/19 at 13:56; Stop 07/09/19 at 13:56; Status DC Dexmedetomidine HCl 400 mcg/ Sodium Chloride 100 ml @ 3.975 mls/ hr CONT PRN I V ANXIETY / AGITATION Last administered on 07/09/19at 19:57; Start 07/09/19 at 15:00 Sodium Chloride 500 ml @ 500 mls/hr 1X PRN PRN IV AGITATION; Start 07/09/19 at 15:00 Atropine Sulfate (ATROPINE 0.5mg SYRINGE) 0.5 mg PRN Q5MIN PRN IV SEE COMMENTS; Start 07/09/19 at 15:00 Potassium Chloride/Water 100 ml @ 100 mls/hr Q1H IV ; Start 07/10/19 at 09:00; Stop 07/10/19 at 12:59 Potassium Chloride (Klor-Con) 40 meq 1X ONCE PO ; Start 07/10/19 at 09:00; Stop 07/10/19 at 09:26; Status DC Active Scripts Active Reported Mirtazapine 7.5 Mg Tablet 7.5 Mg PO QHS Ferrous Sulfate 325 Mg Tablet 325 Mg PO DAILY Divalproex Sodium Er (Divalproex Sodium) 500 Mg Tab.er.24h 500 Mg PO QHS Divalproex Sodium Er (Divalproex Sodium) 500 Mg Tab.er.24h 250 Mg PO DAILYWBKFT Diclofenac-Misoprost 75-200 Tb (Diclofenac Sodium/Misoprostol) 1 Each Tab.ir.dr 1 Each PO TID PRN Buspirone Hcl 10 Mg Tablet 7.5 Mg PO BID PRN Acetaminophen 325 Mg Tablet 325 Mg PO PRN Q6HRS PRN Acetaminophen 325 Mg Tablet 325 Mg PO BID Ventolin Hfa Inhaler (Albuterol Sulfate) 18 Gm Hfa.aer.ad 2 Puff INH Q4HRS PRN Pristiq Er (Desvenlafaxine Succinate) 50 Mg Tab.er.24h 1 Tab PO DAILY Gabapentin (Gabapentin) 300 Mg Capsule 800 Mg PO TID Risperidone 0.5 Mg Tablet 0.5 Mg PO QHS Pantoprazole Sodium (Pantoprazole Sodium) 40 Mg Tablet.dr 40 Mg PO DAILYAC Vitals/I & O Vital Sign - Last 24 Hours 07/09/19 07/09/19 07/09/19 07/09/19 11:00 12:31 12:33 13:00 Temp 98.0 98.0 Pulse 87 77 Resp 16 16 B/P (MAP) 172/100 (124) 127/59 (81) Pulse Ox 100 100 O2 Delivery Ventilator Ventilator Mechanical Ventilator Ventilator 07/09/19 07/09/19 07/09/19 07/09/19 13:01 14:22 15:03 15:30 Pulse 98 116 90 Resp 23 31 28 B/P (MAP) 147/95 (112) 188/93 (124) 190/82 (118) Pulse Ox 93 100 100 98 O2 Delivery Ventilator Nasal Cannula Nasal Cannula Nasal Cannula O2 Flow Rate 2.0 2.0 2.0 07/09/19 07/09/19 07/09/19 07/09/19 16:00 16:07 17:30 18:12 Pulse 84 90 90 Resp 21 24 24 B/P (MAP) 149/63 (91) 172/83 (112) 172/83 (112) Pulse Ox 100 100 100 O2 Delivery Nasal Cannula Nasal Cannula Nasal Cannula Nasal Cannula O2 Flow Rate 2.0 2.0 2.0 2.0 07/09/19 07/09/19 07/09/19 07/09/19 18:13 19:00 19:44 20:00 Pulse 86 78 Resp 20 16 B/P (MAP) 167/84 (111) 176/86 (116) Pulse Ox 100 100 98 O2 Delivery Nasal Cannula Nasal Cannula Nasal Cannula Nasal Cannula O2 Flow Rate 2.0 2.0 2.0 2.0 07/09/19 07/09/19 07/09/19 07/09/19 20:00 20:00 21:00 22:00 Temp 97.4 97.4 Pulse 88 78 73 70 Resp 18 16 16 16 B/P (MAP) 174/87 (116) 176/86 (116) 169/77 (107) 187/90 (122) Pulse Ox 100 100 100 100 O2 Delivery Nasal Cannula Nasal Cannula Nasal Cannula Nasal Cannula O2 Flow Rate 2.0 2.0 2.0 2.0 07/09/19 07/09/19 07/09/19 07/10/19 22:53 22:59 23:59 00:00 Temp 97.7 97.7 Pulse 65 62 61 Resp 15 16 B/P (MAP) 182/96 182/96 (124) 182/97 (125) Pulse Ox 100 100 O2 Delivery Nasal Cannula Nasal Cannula Nasal Cannula O2 Flow Rate 2.0 2.0 2.0 07/10/19 07/10/19 07/10/19 07/10/19 01:00 01:33 02:00 03:00 Pulse 67 63 61 60 Resp 15 16 24 B/P (MAP) 189/95 (126) 189/95 164/90 (114) 131/70 (90) Pulse Ox 100 100 100 O2 Delivery Room Air Room Air Room Air 07/10/19 07/10/19 07/10/19 07/10/19 04:00 04:00 05:00 06:00 Temp 97.9 97.9 Pulse 60 61 64 Resp 14 12 16 B/P (MAP) 153/68 (96) 152/80 (104) 137/71 (93) Pulse Ox 100 100 100 O2 Delivery Room Air Room Air Room Air Room Air 07/10/19 07/10/19 07/10/19 07/10/19 07:00 08:00 08:50 09:00 Temp 98.0 98.0 Pulse 64 77 76 Resp 15 24 18 B/P (MAP) 138/62 (87) 131/61 (84) 140/80 (100) Pulse Ox 100 99 100 O2 Delivery Room Air Room Air Room Air Room Air Intake and Output 07/09/19 07/09/19 07/10/19 15:00 23:00 07:00 Intake Total 200 ml 1743 ml Output Total 1240 ml 2100 ml 1175 ml Balance -1040 ml -2100 ml 568 ml Images BRAIN W/O CONTRAST History: Herpes encephalitis. Unresponsive. Technique: Multiplanar, multi sequential MR imaging was performed of the brain without contrast. Contrast was not administered due to patient motion. Comparison: CT July 07, 2019. MRI July 01, 2018. Findings: Motion degraded examination. No acute infarct. No intracranial hemorrhage. No mass effect. Mild to moderate brain parenchymal volume loss. Mildly dilated lateral ventricles, likely related to central brain parenchymal volume loss, unchanged. Mild facet degenerative/FLAIR hyperintensities within the hemispheric white matter, most often due to chronic microvascular ischemia, unchanged. No evidence of signal abnormalities within the bilateral temporal lobes Imaged orbits are unremarkable. Minimal maxillary sinus mucosal thickening. Secretions within the posterior nasopharynx and nasal cavity likely related to intubation. Minimal mastoid fluid. Impression: Motion degraded examination. 1. No acute intracranial abnormality. 2. Brain parenchymal volume loss and sequela of chronic microvascular ischemia. SUDEEP HEATH MD Jul 10, 2019 10:18
[2019-07-10] MEDS: ENOXAPARIN 40 MG/0.4 ML SYRINGE. SQ SCH (13:21)
[2019-07-10] MEDS: FAMOTIDINE 20 MG/2 ML VIAL IVP SCH (21:00)
[2019-07-10] MEDS ORDERED: LACTULOSE 20 GM/30 ML SOLUTION. PO PRN (21:00)
[2019-07-10] MEDS: MIRTAZAPINE 7.5 MG TABLET. PO SCH (21:16)
[2019-07-11 03:00] VITALS: BP 141/56
[2019-07-11] MEDS: IV 1/2 NORMAL SALINE 1,000 ML IV SCH ×2 (06:00→16:00)
[2019-07-11 07:00] VITALS: BP 165/70
[2019-07-11] MEDS: IPRATRPIUM/ALBUTEROL 0.5/2.5MG 3 ML NEBU. NEB SCH ×3 (07:39→15:44)
[2019-07-11] MEDS: OLANZapine 5 MG TABLET PO SCH ×2 (08:39→19:05)
[2019-07-11] MEDS: DESVENLAFAXINE 25 MG TAB.ER.24H PO SCH (08:39)
[2019-07-11] MEDS: FERROUS SULFATE 325 MG TABLET. PO SCH (08:39)
--- NOTE | 2019-07-11 09:08 | PDOC ---
PROGRESS NOTES Assessment Problems Medical Problems: (1) Anemia Status: Acute (2) Serum ammonia increased Status: Acute (3) Severe sepsis Status: Acute (4) Unresponsive Status: Acute Metabolic encephalopathy. EEG negative for seizure activity, brain MRI negative Drug overdose? Respiratory failure. Lactic acidosis. HTN. Smoking. Unresponsiveness event in 09/18 cause unknown. Plan Okay for discharge Follow-up with neurology as needed Subjective Wants to go home, no complaints, son is with her and agrees Objective Vital Signs Date Time Temp Pulse Resp B/P (MAP) Pulse Ox O2 Delivery O2 Flow Rate FiO2 07/11/19 07:41 98 Room Air 07/11/19 07:00 98.2 84 16 165/70 (101) 98.2 07/10/19 23:00 96.0 Intake and Output 07/11/19 07:00 Intake Total 1950 ml Output Total 900 ml Balance 1050 ml Intake Oral 1550 ml IV Total 200 ml Tube Feeding 200 ml Output Urine Total 900 ml # Voids 4 PHYSICAL EXAM Alert. Oriented to time, place and person. PERRL. CN: no focal findings. Muscle tone: normal. Muscle strength: 5/5 DTR: 1+ Plantar reflex: silent Gait: does well with walker Sensory exam: normal. Cerebellar: no cerebellar signs Review of Relevant I have reviewed the following items michelle (where applicable) has been applied. Labs Laboratory Tests Test 07/09/19 13:36 07/09/19 18:15 07/10/19 04:40 07/10/19 05:00 O2 Saturation 97 % (92-99) Arterial Blood pH 7.43 (7.35-7.45) Arterial Blood pCO2 at Patient Temp 28 mmHg (35-46) Arterial Blood pO2 at Patient Temp 156 mmHg (65-108) Arterial Blood HCO3 18 mmol/L (21-28) Arterial Blood Base Excess -5 mmol/L (-3-3) FiO2 40% cpap Potassium Level 3.3 mmol/L (3.5-5.1) 3.1 mmol/L (3.5-5.1) White Blood Count 5.3 x10^3/uL (4.0-11.0) Red Blood Count 3.34 x10^6/uL (3.50-5.40) Hemoglobin 11.2 g/dL (12.0-15.5) Hematocrit 32.2 % (36.0-47.0) Mean Corpuscular Volume 96 fL (79-100) Mean Corpuscular Hemoglobin 34 pg (25-35) Mean Corpuscular Hemoglobin Concent 35 g/dL (31-37) Red Cell Distribution Width 13.4 % (11.5-14.5) Platelet Count 251 x10^3/uL (140-400) Neutrophils (%) (Auto) 59 % (31-73) Lymphocytes (%) (Auto) 19 % (24-48) Monocytes (%) (Auto) 10 % (0-9) Eosinophils (%) (Auto) 10 % (0-3) Basophils (%) (Auto) 2 % (0-3) Neutrophils # (Auto) 3.2 x10^3/uL (1.8-7.7) Lymphocytes # (Auto) 1.0 x10^3/uL (1.0-4.8) Monocytes # (Auto) 0.5 x10^3/uL (0.0-1.1) Eosinophils # (Auto) 0.5 x10^3/uL (0.0-0.7) Basophils # (Auto) 0.1 x10^3/uL (0.0-0.2) Sodium Level 143 mmol/L (136-145) Chloride Level 107 mmol/L (98-107) Carbon Dioxide Level 24 mmol/L (21-32) Anion Gap 12 (6-14) Blood Urea Nitrogen 3 mg/dL (7-20) Creatinine 0.5 mg/dL (0.6-1.0) Estimated GFR (Cockcroft-Gault) 123.8 BUN/Creatinine Ratio 6 (6-20) Glucose Level 105 mg/dL (70-99) Calcium Level 9.3 mg/dL (8.5-10.1) Total Bilirubin 0.6 mg/dL (0.2-1.0) Aspartate Amino Transf (AST/SGOT) 14 U/L (15-37) Alanine Aminotransferase (ALT/SGPT) 10 U/L (14-59) Alkaline Phosphatase 102 U/L (46-116) Total Protein 7.3 g/dL (6.4-8.2) Albumin 3.3 g/dL (3.4-5.0) Albumin/Globulin Ratio 0.8 (1.0-1.7) Microbiology 12/8/19 Blood Culture - Preliminary, Resulted NO GROWTH AFTER 3 DAYS Medications Current Medications Midazolam HCl 100 ml @ 1 mls/hr 1X ONCE IV Last administered on 07/07/19 13:52; Start 07/07/19 at 11:15; Stop 07/09/19 at 07:38; Status DC Propofol 50 ml @ As Directed STK-MED ONCE IV ; Start 07/07/19 at 11:00; Stop 07/07/19 at 11:01; Status DC Sodium Chloride 1,000 ml @ 1,000 mls/hr 1X ONCE IV Last administered on 07/07/19 13:56; Start 07/07/19 at 11:15; Stop 07/07/19 at 12:14; Status DC Famotidine (Pepcid Vial) 20 mg QHS IVP Last administered on 07/09/19at 20:46; Start 07/07/19 at 21:00 Enoxaparin Sodium (Lovenox 40mg Syringe) 40 mg Q24H SQ Last administered on 07/10/19 13:21; Start 07/07/19 at 13:00 Labetalol HCl (Normodyne Iv Push) 10 mg PRN Q2HR PRN IVP HYPERTENSION Last administered on 07/10/19 01:33; Start 07/07/19 at 11:45 Fentanyl Citrate (Fentanyl 2ml Vial) 50 mcg PRN Q2HR PRN IVP PAIN; Start 07/07/19 at 11:45 Acetaminophen (Tylenol) 650 mg PRN Q6HRS PRN PEG MILD PAIN / TEMP; Start 07/07/19 at 11:45; Status Cancel Ondansetron HCl (Zofran) 4 mg PRN Q6HRS PRN IVP NAUSEA/VOMITING; Start 07/07/19 at 11:45 Sodium Chloride 1,000 ml @ 100 mls/hr Q10H IV Last administered on 07/10/19 01:32; Start 07/07/19 at 12:00 Ferrous Sulfate (Feosol) 325 mg DAILYWBKFT PO Last administered on 07/11/19 08:39; Start 07/08/19 at 08:00 Albuterol/ Ipratropium (Duoneb) 3 ml RTQID NEB Last administered on 07/11/19 07:39; Start 07/07/19 at 12:00 Piperacillin Sod/ Tazobactam Sod 3.375 gm/Sodium Chloride 50 ml @ 100 mls/hr 1X ONCE IV Last administered on 07/07/19at 13:51; Start 07/07/19 at 12:00; Stop 07/07/19 at 12:29; Status DC Vancomycin HCl 250 ml @ 250 mls/hr 1X ONCE IV ; Start 07/07/19 at 12:00; Stop 07/07/19 at 12:59; Status UNV Sodium Chloride 1,000 ml @ 1,000 mls/hr 1X ONCE IV Last administered on 07/07/19at 14:56; Start 07/07/19 at 12:00; Stop 07/07/19 at 12:59; Status DC Vancomycin HCl 1.5 gm/Sodium Chloride 500 ml @ 250 mls/hr 1X ONCE IV Last administered on 07/07/19at 12:46; Start 07/07/19 at 12:00; Stop 07/07/19 at 13:59; Status DC Sodium Chloride 1,000 ml @ 125 mls/hr Q8H IV Last administered on 07/07/19at 15:57; Start 07/07/19 at 11:52; Stop 07/07/19 at 20:58; Status DC Propofol 50 ml @ As Directed STK-MED ONCE IV ; Start 07/07/19 at 12:06; Stop 07/07/19 at 12:07; Status DC Midazolam HCl (Versed) 5 mg 1X ONCE IV Last administered on 07/07/19at 10:58; Start 07/07/19 at 13:30; Stop 07/07/19 at 13:31; Status DC Midazolam HCl (Versed) 5 mg 1X ONCE IV Last administered on 07/07/19at 11:10; Start 07/07/19 at 13:30; Stop 07/07/19 at 13:32; Status DC Succinylcholine Chloride (Anectine) 100 mg 1X ONCE IV Last administered on 07/07/19at 10:51; Start 07/07/19 at 13:45; Stop 07/07/19 at 13:46; Status DC Etomidate (Amidate) 20 mg 1X ONCE IV Last administered on 07/07/19at 10:49; Start 07/07/19 at 13:45; Stop 07/07/19 at 13:46; Status DC Fentanyl Citrate (Fentanyl 2ml Vial) 100 mcg 1X ONCE IVP Last administered on 07/07/19at 11:10; Start 07/07/19 at 13:45; Stop 07/07/19 at 13:46; Status DC Propofol 100 ml @ As Directed STK-MED ONCE IV ; Start 07/07/19 at 14:03; Stop 07/07/19 at 14:03; Status DC Propofol 100 ml @ 0.993 mls/ hr CONT PRN IV SEE I/O RECORD Last administered on 07/09/19at 07:27; Start 07/07/19 at 14:15; Stop 07/09/19 at 14:28; Status DC Lactulose (Lactulose) 20 gm BID PO Last administered on 07/08/19at 21:25; Start 07/07/19 at 14:15; Stop 07/10/19 at 10:43; Status DC Midazolam HCl 100 ml @ 5 mls/hr CONT PRN IV SEE I/O RECORD Last administered on 07/07/19at 21:12; Start 07/07/19 at 20:15; Stop 07/09/19 at 14:28; Status DC Fentanyl Citrate 30 ml @ 0 mls/hr CONT PRN IV SEE PROTOCOL; Start 07/08/19 at 09:15; Stop 07/09/19 at 14:28; Status DC Potassium Chloride/Water 100 ml @ 100 mls/hr Q1H IV Last administered on 07/08/19at 13:11; Start 07/08/19 at 09:30; Stop 07/08/19 at 11:29; Status DC Olanzapine (ZyPREXA) 5 mg BID PO Last administered on 07/11/19at 08:39; Start 07/08/19 at 15:00 Mirtazapine (Remeron) 7.5 mg QHS PO Last administered on 07/10/19at 21:16; Start 07/08/19 at 21:00 Non-Formulary Medication (Desvenlafaxine Succinate (Pristiq Er)) 1 tab DAILY PO ; Start 07/09/19 at 09:00; Status UNV Desvenlafaxine Succinate (Pristiq Er) 25 mg DAILY PO Last administered on 07/11/19at 08:39; Start 07/09/19 at 09:00 Artificial Tears (Artificial Tears) 1 drop PRN Q15MIN PRN OU DRY EYE Last administered on 07/09/19at 07:27; Start 07/08/19 at 17:45 Potassium Chloride/Water 50 ml @ 50 mls/hr Q1H IV ; Start 07/09/19 at 07:00; Stop 07/09/19 at 08:59; Status UNV Potassium Chloride/Water 100 ml @ 100 mls/hr Q1H IV Last administered on 07/09/19at 10:29; Start 07/09/19 at 07:00; Stop 07/09/19 at 10:59; Status DC Gadoterate Meglumine (Dotarem) 15.8 ml 1X ONCE IVP ; Start 07/09/19 at 11:30; Stop 07/09/19 at 11:31; Status DC Sodium Bicarbonate (Sodium Bicarb Adult 8.4% Syr) 50 meq 1X ONCE IV Last administered on 07/09/19at 13:57; Start 07/09/19 at 14:00; Stop 07/09/19 at 14:01; Status DC Sodium Bicarbonate (Sodium Bicarb Adult 8.4% Syr) 50 meq STK-MED ONCE .ROUTE ; Start 07/09/19 at 13:56; Stop 07/09/19 at 13:56; Status DC Dexmedetomidine HCl 400 mcg/ Sodium Chloride 100 ml @ 3.975 mls/ hr CONT PRN IV ANXIETY / AGITATION Last administered on 07/09/19at 19:57; Start 07/09/19 at 15:00; Stop 07/10/19 at 11:07; Status DC Sodium Chloride 500 ml @ 500 mls/hr 1X PRN PRN IV AGITATION; Start 07/09/19 at 15:00 Atropine Sulfate (ATROPINE 0.5mg SYRINGE) 0.5 mg PRN Q5MIN PRN IV SEE COMMENTS; Start 07/09/19 at 15:00; Stop 07/10/19 at 11:07; Status DC Potassium Chloride/Water 100 ml @ 100 mls/hr Q1H IV ; Start 07/10/19 at 09:00; Stop 07/10/19 at 12:59; Status DC Potassium Chloride (Klor-Con) 40 meq 1X ONCE PO Last administered on 07/10/19at 10:27; Start 07/10/19 at 09:00; Stop 07/10/19 at 09:26; Status DC Lactulose (Lactulose) 20 gm PRN BID PRN PO HIGH AMMONIA; Start 07/10/19 at 21:00 Acetaminophen (Tylenol) 650 mg PRN Q6HRS PRN PO pain mild/temp; Start 07/10/19 at 18:30 Active Scripts Active Reported Mirtazapine 7.5 Mg Tablet 7.5 Mg PO QHS Ferrous Sulfate 325 Mg Tablet 325 Mg PO DAILY Divalproex Sodium Er (Divalproex Sodium) 500 Mg Tab.er.24h 500 Mg PO QHS Divalproex Sodium Er (Divalproex Sodium) 500 Mg Tab.er.24h 250 Mg PO DAILYWBKFT Diclofenac-Misoprost 75-200 Tb (Diclofenac Sodium/Misoprostol) 1 Each Tab.ir.dr 1 Each PO TID PRN Buspirone Hcl 10 Mg Tablet 7.5 Mg PO BID PRN Acetaminophen 325 Mg Tablet 325 Mg PO PRN Q6HRS PRN Acetaminophen 325 Mg Tablet 325 Mg PO BID Ventolin Hfa Inhaler (Albuterol Sulfate) 18 Gm Hfa.aer.ad 2 Puff INH Q4HRS PRN Pristiq Er (Desvenlafaxine Succinate) 50 Mg Tab.er.24h 1 Tab PO DAILY Gabapentin (Gabapentin) 300 Mg Capsule 800 Mg PO TID Risperidone 0.5 Mg Tablet 0.5 Mg PO QHS Pantoprazole Sodium (Pantoprazole Sodium) 40 Mg Tablet.dr 40 Mg PO DAILYAC Vitals/I & O Vital Sign - Last 24 Hours 07/10/19 07/10/19 07/10/19 07/10/19 11:00 12:18 13:20 15:30 Temp 97.9 97.7 97.9 97.7 Pulse 77 78 Resp 16 16 B/P (MAP) 89/71 (77) 137/66 (89) Pulse Ox 98 98 99 99 O2 Delivery Room Air Room Air Room Air Room Air 07/10/19 07/10/19 07/10/19 07/10/19 19:00 19:55 20:00 23:00 Temp 98.4 98.2 98.4 98.2 Pulse 84 79 Resp 18 16 B/P (MAP) 142/57 (85) 139/51 (80) Pulse Ox 94 99 O2 Delivery Room Air Room Air Room Air Room Air O2 Flow Rate 2.0 96.0 07/11/19 07/11/19 07/11/19 03:00 07:00 07:41 Temp 98.2 98.2 98.2 98.2 Pulse 77 84 Resp 20 16 B/P (MAP) 141/56 (84) 165/70 (101) Pulse Ox 77 97 98 O2 Delivery Room Air Room Air Room Air Intake and Output 0 07/10/19 07/10/19 07/11/19 15:00 23:00 07:00 Intake Total 200 ml 1250 ml 500 ml Output Total 300 ml 250 ml 350 ml Balance -100 ml 1000 ml 150 ml SUDEEP HEATH MD Jul 11, 2019 09:08
[2019-07-11] MEDS: ACETAMINOPHEN 325 MG TABLET. PO PRN ×2 (10:49→17:37)
[2019-07-11 11:00] VITALS: BP 130/63
--- NOTE | 2019-07-11 11:41 | PDOC ---
PULMONARY PROGRESS NOTES Subjective doing well extubated 07/09 MRI head neg Vitals Vital Signs Date Time Temp Pulse Resp B/P (MAP) Pulse Ox O2 Delivery O2 Flow Rate FiO2 07/11/19 11:26 Room Air 07/11/19 07:41 98 07/11/19 07:00 98.2 84 16 165/70 (101) 98.2 07/10/19 23:00 96.0 General: Alert, No acute distress Lungs: Clear Cardiovascular: S1, S2 Abdomen: Soft, Non-tender Extremities: Other (1+edema) Skin: Warm Labs Laboratory Tests Test 07/09/19 13:36 07/09/19 18:15 07/10/19 04:40 07/10/19 05:00 O2 Saturation 97 % (92-99) Arterial Blood pH 7.43 (7.35-7.45) Arterial Blood pCO2 at Patient Temp 28 mmHg (35-46) Arterial Blood pO2 at Patient Temp 156 mmHg (65-108) Arterial Blood HCO3 18 mmol/L (21-28) Arterial Blood Base Excess -5 mmol/L (-3-3) FiO2 40% cpap Potassium Level 3.3 mmol/L (3.5-5.1) 3.1 mmol/L (3.5-5.1) White Blood Count 5.3 x10^3/uL (4.0-11.0) Red Blood Count 3.34 x10^6/uL (3.50-5.40) Hemoglobin 11.2 g/dL (12.0-15.5) Hematocrit 32.2 % (36.0-47.0) Mean Corpuscular Volume 96 fL (79-100) Mean Corpuscular Hemoglobin 34 pg (25-35) Mean Corpuscular Hemoglobin Concent 35 g/dL (31-37) Red Cell Distribution Width 13.4 % (11.5-14.5) Platelet Count 251 x10^3/uL (140-400) Neutrophils (%) (Auto) 59 % (31-73) Lymphocytes (%) (Auto) 19 % (24-48) Monocytes (%) (Auto) 10 % (0-9) Eosinophils (%) (Auto) 10 % (0-3) Basophils (%) (Auto) 2 % (0-3) Neutrophils # (Auto) 3.2 x10^3/uL (1.8-7.7) Lymphocytes # (Auto) 1.0 x10^3/uL (1.0-4.8) Monocytes # (Auto) 0.5 x10^3/uL (0.0-1.1) Eosinophils # (Auto) 0.5 x10^3/uL (0.0-0.7) Basophils # (Auto) 0.1 x10^3/uL (0.0-0.2) Sodium Level 143 mmol/L (136-145) Chloride Level 107 mmol/L (98-107) Carbon Dioxide Level 24 mmol/L (21-32) Anion Gap 12 (6-14) Blood Urea Nitrogen 3 mg/dL (7-20) Creatinine 0.5 mg/dL (0.6-1.0) Estimated GFR (Cockcroft-Gault) 123.8 BUN/Creatinine Ratio 6 (6-20) Glucose Level 105 mg/dL (70-99) Calcium Level 9.3 mg/dL (8.5-10.1) Total Bilirubin 0.6 mg/dL (0.2-1.0) Aspartate Amino Transf (AST/SGOT) 14 U/L (15-37) Alanine Aminotransferase (ALT/SGPT) 10 U/L (14-59) Alkaline Phosphatase 102 U/L (46-116) Total Protein 7.3 g/dL (6.4-8.2) Albumin 3.3 g/dL (3.4-5.0) Albumin/Globulin Ratio 0.8 (1.0-1.7) Medications Active Scripts Medications Dose Route/Sig Max Daily Dose Days Date Category Keflex (Cephalexin) 500 Mg Capsule 2 Cap PO BID 5 10/22/18 Rx [iron] 325 Mg PO 09/23/18 Reported Ventolin Hfa Inhaler (Albuterol Sulfate) 18 Gm Hfa.aer.ad 2 Puff INH Q4HRS PRN 07/04/18 Reported Pristiq Er (Desvenlafaxine Succinate) 50 Mg Tab.er.24h 1 Tab PO DAILY 07/01/18 Reported Amitriptyline Hcl 25 Mg Tablet 1 Tab PO QHS 07/01/18 Reported Diazepam 5 Mg Tablet 5 Mg PO TID 07/01/18 Reported Gabapentin (Gabapentin) 300 Mg Capsule 300 Mg PO TID 07/01/18 Reported Comments cxr 07/09 left effusion, small Impression . IMPRESSION: 1. Acute respiratory failure secondary to acute toxic encephalopathy. resolved. extubated 07/09 2. Acute toxic encephalopathy contributed by alcohol and benzodiazepines.No ischemic CVA 3. Possible underlying chronic obstructive pulmonary disease. 4. No definite infiltrates seen on the chest x-ray. 5. No abnormal intracranial findings on CT head. Plan . 1. off O2 2. on PO nutrition. 3. Continue bronchodilators. 4. DVT prophylaxis with Lovenox. 5. Follow Neurology recommendations. 6. stable for dc will sign off HOANG CHUNG MD Jul 11, 2019 11:41
[2019-07-11] MEDS: ENOXAPARIN 40 MG/0.4 ML SYRINGE. SQ SCH (13:10)
--- NOTE | 2019-07-11 13:48 | NUR ---
LILA following for discharge planning. Chart reviewed, discussed with RN. PT/OT recommending SNU. LILA met with pt and pt's son, Shiva at bedside. LILA discussed discharge planning. Pt and pt's son do not want to go to rehab. Pt's son reported he takes care of his mother and she goes to [place] Tuesdays and . LILA notified RN of pt declining SNU. Pt is a high risk readmission due to declining discharge recommendations. LILA will continue to follow for discharge planning. Addendum: 07/11/19 at 1628 by ZURDO SHARP LILA spoke with pt's [facility] SWer. They will have pt seen for home health, PT/OT etc. Pt will be seen more in the [place] [facility] and they are going to work with pt to help with drug and alcohol abuse. Per SWer, pt had been sober for some time and recently had a drink (prior to this admission). Pt's [place] SWer is not sure why pt tested positive for benzodiazepines, as pt is not prescribed any. [facility] SWer, reiterated pt will be seen more frequently and her care plan will be adjusted within [facility] to ensure pt is receiving support services needed. LILA faxed clinicals and discharge paperwork to [facility] for home health (fax: [phone]). RN notified. Pt will discharge home today when family member brings her keys.
[2019-07-11] MEDS ORDERED: OLAN5TAB9 PO (13:56)
--- NOTE | 2019-07-11 13:58 | SNU/HH DC ---
DISCHARGE WITH HOME HEALTH DISCHARGE INFORMATION: Discharge Date: Jul 11, 2019 Final Diagnosis: Acute respiratory failure secondary to acute toxic encephalopathy Acute toxic encephalopathy contributed by alcohol and benzodiazepines Lactic acidosis HTN tobacco use disorder obese, BMI 32 Unresponsiveness Schizophrenia Problems Medical Problems: (1) Anemia Status: Acute (2) Serum ammonia increased Status: Acute (3) Severe sepsis Status: Acute (4) Unresponsive Status: Acute Condition on Discharge: Stable CODE STATUS: Code Status: Full HOME HEALTH: Face to Face: I certify this patient is under my care and that I, or a nurse practitioner or physician's certified teacher assistant working with me, had a face to face encounter that meets the physician face to face encounter requirements with this patient on 07/11 Medical Complications: Other [facility] For: Medication Management, Other: (schizo meds, was unsreponsive on previous) RN For Eval/Treatment: Yes Physical Therapy For: Evalulation/Treatment Occupational Therapy For: Evaluation/Treatment Pt Meets Homebound Status: Poor coordination w/ amb., Extreme weakness w/ amb., Poor cognition POST DISCHARGE ORDERS: Activity Instructions for Disc: Activity as tolerated Weight Bearing Status after Di: As tolerated DIET AFTER DISCHARGE: Regular CHECKS AFTER DISCHARGE: Checks after discharge: Check blood press - daily, Check blood sugar, ac/hs, Check your Temp as needed FOLLOW-UP: Follow up with: primary care TREATMENT/EQUIPMENT ORDERS: Adaptive Equipment Issued: None CERTIFICATION STATEMENT: Certification Statement: Certification Statement: Based on the above finding, I certify that this patient is confined to the home and needs intermittent senior living care, physical therapy and/or speech therapy, or continues to need occupational therapy.~ This patient is under my care, and I have initiated the establishment of the plan of care.~ This patient will be followed by myself or a community physician who will periodically review the plan of care. Home Meds Active Scripts Olanzapine (OLANZAPINE) 5 Mg Tablet, 5 MG PO BID for mood stabilization, #60 TAB Prov:ANA PAULA MAHAN MD 07/11/19 Reported Medications Pantoprazole Sodium (PANTOPRAZOLE SODIUM ) 40 Mg Tablet.dr, 40 MG PO DAILYAC for GERD, TAB 07/09/19 Mirtazapine (MIRTAZAPINE) 7.5 Mg Tablet, 7.5 MG PO QHS for MDD, TAB 07/09/19 Ferrous Sulfate (FERROUS SULFATE) 325 Mg Tablet, 325 MG PO DAILY for iron supplement, TAB 07/09/19 Diclofenac Sodium/Misoprostol (DICLOFENAC-MISOPROST 75-200 TB) 1 Each Tab.ir., 1 EACH PO TID PRN for PAIN, TAB 07/09/19 Buspirone Hcl (BUSPIRONE HCL) 10 Mg Tablet, 7.5 MG PO BID PRN for ANXIETY / AGITATION, TAB 07/09/19 Acetaminophen (ACETAMINOPHEN) 325 Mg Tablet, 325 MG PO PRN Q6HRS PRN for PAIN, TAB 07/09/19 Acetaminophen (ACETAMINOPHEN) 325 Mg Tablet, 325 MG PO BID for chronic pain, TAB 07/09/19 Albuterol Sulfate (VENTOLIN HFA INHALER) 18 Gm Hfa.aer.ad, 2 PUFF INH Q4HRS PRN for shortness of breath, INHALER 0 Refills 07/04/18 Desvenlafaxine Succinate (PRISTIQ ER) 50 Mg Tab.er.24h, 1 TAB PO DAILY, #30 TAB 5 Refills 07/01/18 Discontinued Reported Medications Risperidone (RISPERIDONE) 0.5 Mg Tablet, 0.5 MG PO QHS for schizophrenia, TAB 07/09/19 Divalproex Sodium (DIVALPROEX SODIUM ER) 500 Mg Tab.er.24h, 500 MG PO QHS for schizophrenia, TAB.SR 07/09/19 Divalproex Sodium (DIVALPROEX SODIUM ER) 500 Mg Tab.er.24h, 250 MG PO DAILYWBKFT for schizophrenia, TAB.SR 07/09/19 Gabapentin (GABAPENTIN ) 300 Mg Capsule, 800 MG PO TID for pain, CAP 07/01/18 ANA PAULA MAHAN MD Jul 11, 2019 13:57
--- NOTE | 2019-07-11 14:04 | PDOC3 ---
Discharge Summary Visit Information Date of Admission: Jul 07, 2019 Date of Discharge: Jul 11, 2019 Final Diagnosis Acute respiratory failure secondary to acute toxic encephalopathy Acute toxic encephalopathy contributed by alcohol and benzodiazepines Lactic acidosis HTN Smoking Unresponsiveness Schizophrenia Problems Medical Problems: (1) Anemia Status: Acute (2) Serum ammonia increased Status: Acute (3) Severe sepsis Status: Acute (4) Unresponsive Status: Acute Brief Hospital Course Allergies Allergies Coded Allergies Type Severity Reaction Last Updated Verified morphine Allergy Severe swelling 07/01/18 Yes aspirin Allergy Intermediate 07/05/18 Yes oxycodone Allergy Intermediate 07/05/18 Yes I S O L A T I O N *CONTACT* Allergy Unknown 09/24/18 Yes Vital Signs Vital Signs Date Time Temp Pulse Resp B/P (MAP) Pulse Ox O2 Delivery O2 Flow Rate FiO2 07/11/19 11:26 Room Air 07/11/19 11:00 97.9 83 18 130/63 (85) 97 97.9 07/10/19 23:00 96.0 Lab Results Laboratory Tests Test 07/09/19 18:15 07/10/19 04:40 07/10/19 05:00 Potassium Level 3.3 mmol/L (3.5-5.1) 3.1 mmol/L (3.5-5.1) White Blood Count 5.3 x10^3/uL (4.0-11.0) Red Blood Count 3.34 x10^6/uL (3.50-5.40) Hemoglobin 11.2 g/dL (12.0-15.5) Hematocrit 32.2 % (36.0-47.0) Mean Corpuscular Volume 96 fL (79-100) Mean Corpuscular Hemoglobin 34 pg (25-35) Mean Corpuscular Hemoglobin Concent 35 g/dL (31-37) Red Cell Distribution Width 13.4 % (11.5-14.5) Platelet Count 251 x10^3/uL (140-400) Neutrophils (%) (Auto) 59 % (31-73) Lymphocytes (%) (Auto) 19 % (24-48) Monocytes (%) (Auto) 10 % (0-9) Eosinophils (%) (Auto) 10 % (0-3) Basophils (%) (Auto) 2 % (0-3) Neutrophils # (Auto) 3.2 x10^3/uL (1.8-7.7) Lymphocytes # (Auto) 1.0 x10^3/uL (1.0-4.8) Monocytes # (Auto) 0.5 x10^3/uL (0.0-1.1) Eosinophils # (Auto) 0.5 x10^3/uL (0.0-0.7) Basophils # (Auto) 0.1 x10^3/uL (0.0-0.2) Sodium Level 143 mmol/L (136-145) Chloride Level 107 mmol/L (98-107) Carbon Dioxide Level 24 mmol/L (21-32) Anion Gap 12 (6-14) Blood Urea Nitrogen 3 mg/dL (7-20) Creatinine 0.5 mg/dL (0.6-1.0) Estimated GFR (Cockcroft-Gault) 123.8 BUN/Creatinine Ratio 6 (6-20) Glucose Level 105 mg/dL (70-99) Calcium Level 9.3 mg/dL (8.5-10.1) Total Bilirubin 0.6 mg/dL (0.2-1.0) Aspartate Amino Transf (AST/SGOT) 14 U/L (15-37) Alanine Aminotransferase (ALT/SGPT) 10 U/L (14-59) Alkaline Phosphatase 102 U/L (46-116) Total Protein 7.3 g/dL (6.4-8.2) Albumin 3.3 g/dL (3.4-5.0) Albumin/Globulin Ratio 0.8 (1.0-1.7) Brief Hospital Course Ms. Nuñez is a 64 old brought into the hospital with altered mental status and also in respiratory distress. She has a history of schizophrenia and bipolar disorder and was initially confused then unresponsive, and was intubated in ER, then ICU, to resp problem, imrpoved quickly, was weak, we req. Skilled, family prefer dc asa Her urine drug screen was positive for benzos and alcohol. pulm and neuro eval followed Discharge Information Condition at Discharge: Improved Follow Up: Weeks Disposition/Orders: D/C to Home w/ HH Scheduled Acetaminophen (Acetaminophen) 325 Mg Tablet, 325 MG PO BID for chronic pain, (Reported) Entered as Reported by: JOSE ALBERTO CARUSO on 07/09/19 1223 Last Taken: Unknown Dose on Unknown Date & Time Last Action: New Order on 07/09/191222 by JOSE ALBERTO CARUSO Desvenlafaxine Succinate (Pristiq Er) 50 Mg Tab.er.24h, 1 TAB PO DAILY, #30 Ref 5 (Reported) Entered as Reported by: SOLEDAD BELLAMY on 07/01/18 1246 Last Action: Reviewed on 07/09/191222 by JOSE ALBERTO CARUSO Ferrous Sulfate (Ferrous Sulfate) 325 Mg Tablet, 325 MG PO DAILY for iron supplement, (Reported) Entered as Reported by: JOSE ALBERTO CARUSO on 07/09/191222 Last Taken: Unknown Dose on Unknown Date & Time Last Action: New Order on 07/09/191222 by JOSE ALBERTO CARUSO Mirtazapine (Mirtazapine) 7.5 Mg Tablet, 7.5 MG PO QHS for MDD, (Reported) Entered as Reported by: JOSE ALBERTO CARUSO on 07/09/191222 Last Taken: Unknown Dose on Unknown Date & Time Last Action: New Order on 07/09/191222 by JOSE ALBERTO CARUSO Olanzapine (Olanzapine) 5 Mg Tablet, 5 MG PO BID for mood stabilization, #60 Prescribed by: ANA PAULA MAHAN on 07/11/19 1356 Pantoprazole Sodium (Pantoprazole Sodium ) 40 Mg Tablet.dr, 40 MG PO DAILYAC for GERD, (Reported) Entered as Reported by: JOSE ALBERTO CARUSO on 07/09/191222 Last Taken: Unknown Dose on Unknown Date & Time Last Action: New Order on 07/09/191222 by JOSE ALBERTO CARUSO Scheduled PRN Acetaminophen (Acetaminophen) 325 Mg Tablet, 325 MG PO PRN Q6HRS PRN for PAIN, (Reported) Entered as Reported by: JOSE ALBERTO CARUSO on 07/09/191222 Last Taken: Unknown Dose on Unknown Date & Time Last Action: New Order on 07/09/191222 by JOSE ALBERTO CARUSO Albuterol Sulfate (Ventolin Hfa Inhaler) 18 Gm Hfa.aer.ad, 2 PUFF INH Q4HRS PRN for shortness of breath, Ref 0 (Reported) Entered as Reported by: Issac Santana on 07/04/18 1801 Last Action: HELD on 07/07/19 1147 by NAVIN SAN Buspirone Hcl (Buspirone Hcl) 10 Mg Tablet, 7.5 MG PO BID PRN for ANXIETY / AGITATION, (Reported) Entered as Reported by: JOSE ALBERTO CARUSO on 07/09/191222 Last Taken: Unknown Dose on Unknown Date & Time Last Action: New Order on 07/09/191222 by JOSE ALBERTO CARUSO Diclofenac Sodium/Misoprostol (Diclofenac-Misoprost 75-200 Tb) 1 Each Tab.ir.dr, 1 EACH PO TID PRN for PAIN, (Reported) Entered as Reported by: JOSE ALBERTO CARUSO on 07/09/191222 Last Taken: Unknown Dose on Unknown Date & Time Last Action: New Order on 07/09/191222 by JOSE ALBERTO CARUSO Discontinued Medications Divalproex Sodium (Divalproex Sodium Er) 500 Mg Tab.er.24h, 250 MG PO DAILYWBKFT for schizophrenia, (Reported) Entered as Reported by: JOSE ALBERTO CARUSO on 07/09/191222 Last Taken: Unknown Dose on Unknown Date & Time Last Action: New Order on 07/09/191222 by JOSE ALBERTO CARUSO Divalproex Sodium (Divalproex Sodium Er) 500 Mg Tab.er.24h, 500 MG PO QHS for schizophrenia, (Reported) Entered as Reported by: JOSE ALBERTO CARUSO on 07/09/191222 Last Taken: Unknown Dose on Unknown Date & Time Last Action: New Order on 07/09/191222 by JOSE ALBERTO CARUSO Gabapentin (Gabapentin ) 300 Mg Capsule, 800 MG PO TID for pain, (Reported) Entered as Reported by: SOLEDAD BELLAMY on 07/01/181226 Last Action: Edited on 07/09/191222 by JOSE ALBERTO CARUSO Risperidone (Risperidone) 0.5 Mg Tablet, 0.5 MG PO QHS for schizophrenia, (Reported) Entered as Reported by: JOSE ALBERTO CARUSO on 07/09/191222 Last Taken: Unknown Dose on Unknown Date & Time Last Action: New Order on 07/09/191222 by JOSE ALBERTO CARUSO Patient Instructions Patient Instructions > 30 min face to face declined skilled ANA PAULA MAHAN MD Jul 11, 2019 14:04
[2019-07-11 15:00] VITALS: BP 140/83
--- NOTE | 2019-07-11 16:24 | NUR ---
Pt. stating she does not have her keys and a family member named Josy can bring them after she gets off of work at 8pm. Pt. also stated that Josy should be able to take her home. Spoke with REYNA Santoyo nursing meter readers supervisor of d/c and transportation situation.
--- NOTE | 2019-07-11 19:09 | NUR ---
Pt. discharged to home, verbalized understanding of discharge instructions. report given to pt's home Eda Zhu notified of New Rx of Zyprexa. Pt taken home by son and daughter in law.
== END 2019-07-11 19:05 | disposition home health service (06) | DRG 208 ==
LOC: ER 10:39 → 1 WEST ICU 11:38 → 4 NORTH 07-10 11:02
PROVIDERS: ADMIT Internal Medicine; ATTEND Internal Medicine
PROC: 5A1945Z Respiratory Ventilation, 24-96 Consecutive Hours (ICD-10-PCS; principal; 2019-07-07)
PROC: 0BH17EZ Insertion of Endotracheal Airway into Trachea, Via Natural or Artificial Opening (ICD-10-PCS; 2019-07-07)
DX: J96.00 Acute respiratory failure, unspecified whether with hypoxia or hypercapnia (principal); G92 Toxic encephalopathy; D64.9 Anemia, unspecified; E66.9 Obesity, unspecified; F17.210 Nicotine dependence, cigarettes, uncomplicated; F20.9 Schizophrenia, unspecified; F31.9 Bipolar disorder, unspecified; I10 Essential (primary) hypertension; J45.909 Unspecified asthma, uncomplicated; Z68.33 Body mass index [BMI] 33.0-33.9, adult; Z82.49 Family history of ischemic heart disease and other diseases of the circulatory system; F41.9 Anxiety disorder, unspecified; Z88.8 Allergy status to other drugs, medicaments and biological substances; Z79.899 Other long term (current) drug therapy
CPT/HCPCS: 31500; 36415; 36600; 70450; 70551; 71045; 80048; 80053; 80307; 81001; 82140; 82550; 82805; 82962; 83605; 83690; 83735; 83880; 84132; 84443; 84484; 85007; 85025; 85610; 85730; 87040; 87641; 93005; 94002; 94003; 94640; 94760; 95816; 96365; 96375; A4314; J0330; J1650; J2250; J2543; J2704; J3010; J3370; J3480; J3490; J7030; J7040; J7620; 97116; 97535; 99291-25; G0378